=== PATIENT | female | born 1940 ===

== ENCOUNTER 2017-03-30 11:33 | Inpatient (IN) | payer MEDICARE, MEDICAID ==
[2017-03-30 12:02] VITALS: BMI 27.8
[2017-03-30] MEDS ORDERED: Sodium Chloride 0.9% 500 ML IV ONE ×3 (13:25→15:37)
--- NOTE | 2017-03-30 13:31 | C.PDOC ---
History Of Present Illness 76 year old female, with PMHx of HTN, DM, presents to ED for evaluation of diffuse abdominal pain associated with nausea and vomiting since last night ( midnight). She states the pain radiates to her lower back. Patient denies prior history of similar symptoms. She also denies fever, chest pain, SOB, dysuria/hematuria, diarrhea. Last BM was this morning. Time Seen by Provider: 03/30/17 12:56 Chief Complaint (Nursing): Abdominal Pain History Per: Patient History/Exam Limitations: no limitations Onset/Duration Of Symptoms: Days (1) Current Symptoms Are (Timing): Still Present Severity: Moderate Location Of Pain/Discomfort: Diffuse Radiation Of Pain To:: Back Quality Of Discomfort: "Pain" Associated Symptoms: Nausea, Vomiting, Back Pain. denies: Diarrhea, Loss Of Appetite, Chest Pain, Constipation, Urinary Symptoms Exacerbating Factors: None Alleviating Factors: None Additional History Per: Patient Abnormal Vaginal Bleeding: No Past Medical History Reviewed: Historical Data, Nursing Documentation, Vital Signs Vital Signs: Last Vital Signs Temp 98.3 F 04/08/17 09:23 Pulse 72 04/08/17 09:58 Resp 20 04/08/17 09:23 BP 190/79 H 04/08/17 09:58 Pulse Ox 96 04/08/17 09:23 - Medical History PMH: Arthritis, Diabetes, HTN, Hypercholesterolemia, Migraine, Osteoporosis Surgical History: Appendectomy, Cholecystectomy, Coronary Stent (X4) - [facility] Procedures CORONAR ARTERIOGR-2 CATH (03/07/13) LEFT HEART CARDIAC CATH (03/07/13) LT HEART ANGIOCARDIOGRAM (03/07/13) Family History: States: No Known Family Hx - Social History Hx Tobacco Use: No Hx Alcohol Use: No Hx Substance Use: No - Immunization History Hx Tetanus Toxoid Vaccination: No Hx Influenza Vaccination: Yes (2017) Hx Pneumococcal Vaccination: No Review Of Systems Except As Marked, All Systems Reviewed And Found Negative. Constitutional: Negative for: Fever, Chills Cardiovascular: Negative for: Chest Pain, Palpitations Respiratory: Negative for: Cough, Shortness of Breath Gastrointestinal: Positive for: Nausea, Vomiting, Abdominal Pain. Negative for : Diarrhea, Constipation, Hematemesis Genitourinary: Negative for: Dysuria, Frequency, Hematuria Musculoskeletal: Positive for: Back Pain Physical Exam - Physical Exam Appears: Well, Non-toxic, In Acute Distress (in mild pain, uncomfortable appearing ) Skin: Normal Color, Warm, Dry, No Rash Eye(s): bilateral: Normal Inspection Oral Mucosa: Moist Cardiovascular: Rhythm Regular Respiratory: Normal Breath Sounds, No Rales, No Rhonchi, No Wheezing Gastrointestinal/Abdominal: Bowel Sounds (hyperactive), Soft, Tenderness ( diffuse tenderness to palpation, greatest at right periumbilical area ), No Distention, No Guarding, No Rebound, Other ((-) Gutierrez's, (-) McBurney's) Back: Normal Inspection, No CVA Tenderness Extremity: Normal ROM Neurological/Psych: Oriented x3 ED Course And Treatment - Laboratory Results Result Diagrams: 04/08/17 08:43 04/08/17 08:43 O2 Sat by Pulse Oximetry: 99 (RA) Pulse Ox Interpretation: Normal - CT Scan/US ct abd/pelvis Other Rad Studies (CT/US): Read By Radiologist, Radiology Report Reviewed CT/US Interpretation: Accession No. : [id number]. Patient Name / ID : RUTH ANN GARDNER / [id number]. Exam Date : 03/30/2017 17:59:27 ( Approved ) . Study Comment : Sex / Age : F / [id number]. Creator : Tyrel Veronica MD. Dictator : Tyrel Veronica MD. Professor Of Theatre : Wood Floor Refinisher : Tyrel Veronica MD. Approver2 : Report Date : 03/30/2017 18:55:30. My Comment : . PROCEDURE: CT Abdomen and Pelvis with contrast. HISTORY: DIFFUSE ABD PAIN, VOMITING, R/O SBO. COMPARISON: 03/03/2014. TECHNIQUE: Contrast dose: Oral contrast only. Radiation dose: Total exam DLP = mGy-cm. This CT exam was performed using one or more of the following dose reduction techniques: Automated exposure control, adjustment of the mA and/or kV according to patient size, and/or use of iterative reconstruction technique. FINDINGS: LOWER THORAX : Stable, small pericardial effusion, cardiomegaly. LIVER: Unremarkable. No gross lesion or ductal dilatation. GALLBLADDER AND BILE DUCTS: Status post cholecystectomy. No abnormality is seen in the gallbladder fossa. Portions of the. PANCREAS: Unremarkable. No gross lesion or ductal dilatation. SPLEEN: Unremarkable. ADRENALS: Unremarkable. No mass. KIDNEYS AND URETERS: Unremarkable. No hydronephrosis. No solid mass. VASCULATURE: Unremarkable. No aortic aneurysm. BOWEL: Thickening of the wall of the ascending colon likely reflective of mild colitis. The findings do not affect the transverse colon, descending colon, rectum or sigmoid. Incidental finding(s): Duodenal diverticulum. APPENDIX: A normal appendix is not visualized. PERITONEUM: Unremarkable. No free fluid. No free air. LYMPH NODES: Unremarkable. No enlarged lymph nodes. BLADDER: Unremarkable. REPRODUCTIVE: Unremarkable. BONES: No acute fracture. OTHER FINDINGS: None. IMPRESSION: Mild colitis limited to the ascending colon. Additional benign and/or incidental findings described above. Progress Note: Blood work, UA, obstructive series, Abd & Pelvis CT ordered and reviewed. Pt given IV NS bolus, IV zofran, IV toradol (low dose). 7:00pm- CT scan shows mild colitis. However patient has left shift and significant bandemia - will admit patient. - Physician Consult Information Physician Contacted: Augustin Love Outcome Of Conversation: Discussed patient with hospitalist, agrees with admission to his service. GI consult entered. Disposition - Disposition Disposition: HOSPITALIZED Disposition Time: 19:08 Condition: FAIR - Clinical Impression Clinical Impression: Elevated liver enzymes, Bandemia, Colitis - Scribe Statement The provider has reviewed the documentation as recorded by the Baron Rueda All medical record entries made by the Baron were at my direction and personally dictated by me. I have reviewed the chart and agree that the record accurately reflects my personal performance of the history, physical exam, medical decision making, and the department course for this patient. I have also personally directed, reviewed, and agree with the discharge instructions and disposition. Decision To Admit - Pt Status Changed To: Hospital Disposition Of: Inpatient - Admit Certification Admit to Inpatient:: After my assessment, the patient will require hospitalization for at least two midnights. This is because of the severity of symptoms shown, intensity of services needed, and/or the medical risk in this patient being treated as an outpatient. - InPatient: Physician Admission Certification:: see notes - . Bed Request Type: Regular Admitting Physician: Augustin Love Patient Diagnosis: Elevated liver enzymes, Bandemia, Colitis
[2017-03-30 13:47] LABS: BASO % 0.1 % (0.0-2.0); EOS % 0.1 % (0.0-4.0); HEMOGLOBIN 10.3 g/dL (11.0-16.0); LYMPH # 0.4 K/uL (1.0-4.3); LYMPH % 5.6 % (20.0-40.0); MEAN CELL VOLUME 92.1 fL (81.0-99.0); MEAN CORPUSCULAR HEMOGLOBIN 31.4 pg (27.0-31.0); MEAN PLATELET VOLUME 10.4 fL (7.2-11.7); MONO # 0.4 K/uL (0.0-0.8); MONO % 5.4 % (0.0-10.0); NEUT # 5.8 K/uL (1.8-7.0); NEUT % 88.8 % (50.0-75.0); PLATELET COUNT 130 K/uL (130-400); RBC 3.28 Mil/uL (3.80-5.20); RED CELL DISTRIBUTION WIDTH 14.5 % (11.5-14.5); WHITE BLOOD COUNT 6.5 K/uL (4.8-10.8)
[2017-03-30 14:03] LABS: ALB/GLOB RATIO 0.8 (1.0-2.1); ALBUMIN 3.7 g/dL (3.5-5.0); CALCIUM 8.9 mg/dl (8.6-10.4)
--- NOTE | 2017-03-30 14:09 | RAD ---
PROCEDURE: Radiographs of the chest and abdomen (obstructive series) HISTORY: VOMITING, R/O AIR FLUIDS LEVELS COMPARISON: Chest x-ray performed 01/08/17 TECHNIQUE: AP radiograph of the chest, with upright and supine radiographs of the abdomen. FINDINGS: Examination limited by habitus. CHEST: Cardiomegaly. Atherosclerotic calcifications of the aorta. Mild bibasilar atelectasis. No significant pleural effusion. No definite pneumothorax. ABDOMEN AND PELVIS: Nonspecific bowel gas pattern. Cholecystectomy clips. Degenerative changes of the spine and shoulders. Osseous demineralization. IMPRESSION: Cardiomegaly. Mild bibasilar atelectasis. Cholecystectomy clips. Nonspecific bowel gas pattern.
[2017-03-30 14:53] LABS: BANDS 14 % (0-2); LYMPHOCYTE 3 % (20-40); MONOCYTE 4 % (0-10); NEUTROPHIL 79 % (50-75); TOTAL CELLS COUNTED 100
[2017-03-30 14:54] LABS: PLATELET ESTIMATE NORMAL (NORMAL)
[2017-03-30 14:59] LABS: SQUAMOUS EPITHIAL 2 /hpf (0-5); URINE BACTERIA RARE (<OCC); URINE BILIRUBIN NEGATIVE (NEGATIVE); URINE BLOOD NEGATIVE (NEGATIVE); URINE CLARITY Clear (Clear); URINE COLOR Yellow (YELLOW); URINE GLUCOSE (UA) 2+ mg/dL (Normal); URINE LEUKOCYTE ESTERASE NEG Leu/uL (Negative); URINE NITRATE NEGATIVE (NEGATIVE); URINE PROTEIN 3+ mg/dL (NEGATIVE); URINE UROBILINOGEN NORMAL mg/dL (0.2-1.0)
[2017-03-30 15:36] LABS: VENOUS BLOOD GAS BASE EXCESS -11.5 mmol/L (0.0-2.0); VENOUS BLOOD GAS PCO2 26 mmHg (40-60); VENOUS BLOOD GAS PO2 54 mm/Hg (30-55); VENOUS BLOOD PH 7.31 (7.32-7.43)
[2017-03-30] MEDS ORDERED: Iohexol 240 (50 ml) ONE (16:45)
--- NOTE | 2017-03-30 18:57 | CT ---
PROCEDURE: CT Abdomen and Pelvis with contrast HISTORY: DIFFUSE ABD PAIN, VOMITING, R/O SBO COMPARISON: 03/03/2014 TECHNIQUE: Contrast dose: Oral contrast only. Radiation dose: Total exam DLP = mGy-cm. This CT exam was performed using one or more of the following dose reduction techniques: Automated exposure control, adjustment of the mA and/or kV according to patient size, and/or use of iterative reconstruction technique. FINDINGS: LOWER THORAX: Stable, small pericardial effusion, cardiomegaly. LIVER: Unremarkable. No gross lesion or ductal dilatation. GALLBLADDER AND BILE DUCTS: Status post cholecystectomy. No abnormality is seen in the gallbladder fossa. Portions of the PANCREAS: Unremarkable. No gross lesion or ductal dilatation. SPLEEN: Unremarkable. ADRENALS: Unremarkable. No mass. KIDNEYS AND URETERS: Unremarkable. No hydronephrosis. No solid mass. VASCULATURE: Unremarkable. No aortic aneurysm. BOWEL: Thickening of the wall of the ascending colon likely reflective of mild colitis. The findings do not affect the transverse colon, descending colon, rectum or sigmoid. Incidental finding(s): Duodenal diverticulum. APPENDIX: A normal appendix is not visualized. PERITONEUM: Unremarkable. No free fluid. No free air. LYMPH NODES: Unremarkable. No enlarged lymph nodes. BLADDER: Unremarkable. REPRODUCTIVE: Unremarkable. BONES: No acute fracture. OTHER FINDINGS: None. IMPRESSION: Mild colitis limited to the ascending colon. Additional benign and/or incidental findings described above.
[2017-03-30] MEDS ORDERED: Piperacillin/Tazobact 3.375 gm 100 ML IV STA (18:58)
--- NOTE | 2017-03-30 19:23 | CP.PCM.HP ---
<Melonie Echeverria - Last Filed: 03/30/17 23:06> History of Present Illness - History of Present Illness History of Present Illness: Medicine Note for Hospitalist Service CC: abdominal pain x 1 day HPI: 76 Female with PMHx HTN, DM, CKD, RA, OA presents to the ED with abdominal pain x 1 day. She reports she started to have abdominal pain last night after drinking a cup of a milk. Admitted to nausea, dry heaving, crampy abdominal pain; denied fever, chills, diarrhea (normal bowel movements every 2- 3 days). She reported not eating anything unusual, no sick contacts or recent travel. She saw her PMD last week for routine check up all was unremarkable at that time. Denied fever, chills, headache, chest pain, SOB, n/v/d/c, or urinary symptoms. PMHx: HTN, DM, CKD, RA, OA PSHx: Cholecystectomy, Appendectomy Meds: Will need to call pharmacy - patient does not know home medications- [facility] [phone] All: Fish- rash SHx: Denied tobacco, alcohol, illicit drug use FHx: Unremarkable PMD: Dr. Mickey Suh Present on Admission - Present on Admission Any Indicators Present on Admission: No Past Patient History - Infectious Disease Hx of Infectious Diseases: None - Past Medical History & Family History Past Medical History?: Yes - Past Social History Smoking Status: Never Smoked - CARDIAC Hx Hypercholesterolemia: Yes Hx Hypertension: Yes - PULMONARY Hx Respiratory Disorders: No - NEUROLOGICAL Hx Migraine: Yes - HEENT Hx HEENT Problems: No - RENAL Hx Chronic Kidney Disease: No - ENDOCRINE/METABOLIC Hx Endocrine Disorders: Yes Hx Diabetes Mellitus Type 2: Yes - HEMATOLOGICAL/ONCOLOGICAL Hx Blood Transfusions: No Hx Blood Transfusion Reaction: No - MUSCULOSKELETAL/RHEUMATOLOGICAL Hx Arthritis: Yes Hx Osteoporosis: Yes - PSYCHIATRIC Hx Substance Use: No - SURGICAL HISTORY Hx Appendectomy: Yes Hx Cholecystectomy: Yes Hx Coronary Stent: Yes (X4) - ANESTHESIA Hx Anesthesia: Yes Hx Anesthesia Reactions: Yes Hx Malignant Hyperthermia: No Meds Allergies/Adverse Reactions: Allergies Allergy/AdvReac Type Severity Reaction Status Date / Time ciprofloxacin [From Cipro] Allergy ANAPHYLAXIS Verified 03/30/17 12:01 ciprofloxacin HCl Allergy ANAPHYLAXIS Verified 03/30/17 12:01 [From Cipro] seafood Allergy ANAPHYLAXIS Uncoded 03/30/17 12:01 Physical Exam - Constitutional Appears: No Acute Distress - Head Exam Head Exam: NORMAL INSPECTION, NORMOCEPHALIC - Eye Exam Eye Exam: EOMI, Normal appearance, PERRL Pupil Exam: NORMAL ACCOMODATION - ENT Exam ENT Exam: Mucous Membranes Moist, Normal Exam - Respiratory Exam Respiratory Exam: Clear to Auscultation Bilateral, NORMAL BREATHING PATTERN. absent: Wheezes - Cardiovascular Exam Cardiovascular Exam: REGULAR RHYTHM - GI/Abdominal Exam GI & Abdominal Exam: Normal Bowel Sounds, Soft, Tenderness (RLQ, LLQ ). absent : Distended - Extremities Exam Extremities exam: Positive for: normal inspection, pedal pulses present. Negative for: pedal edema, tenderness - Neurological Exam Neurological exam: Alert, CN II-XII Intact, Oriented x3 - Psychiatric Exam Psychiatric exam: Normal Affect, Normal Mood - Skin Skin Exam: Dry, Intact, Normal Color, Warm Results - Vital Signs Recent Vital Signs: Last Vital Signs Temp 100.3 F H 03/30/17 18:45 Pulse 62 03/30/17 18:45 Resp 18 03/30/17 18:45 BP 163/67 H 03/30/17 18:45 Pulse Ox 99 03/30/17 19:12 - Labs Result Diagrams: 03/30/17 19:59 03/30/17 13:39 Labs: Laboratory Results - last 24 hr 03/30/17 03/30/17 03/30/17 13:39 13:39 14:49 WBC 6.5 RBC 3.28 L Hgb 10.3 L Hct 30.2 L MCV 92.1 MCH 31.4 H MCHC 34.0 RDW 14.5 Plt Count 130 MPV 10.4 Neut % (Auto) 88.8 H Lymph % (Auto) 5.6 L [place] % (Auto) 5.4 Eos % (Auto) 0.1 Baso % (Auto) 0.1 Neut # (Auto) 5.8 Lymph # (Auto) 0.4 L [place] # (Auto) 0.4 Eos # (Auto) 0.0 Baso # (Auto) 0.0 Neutrophils % (Manual) 79 H Band Neutrophils % 14 H* Lymphocytes % (Manual) 3 L Monocytes % (Manual) 4 Platelet Estimate Normal RBC Morphology Normal pO2 VBG pH VBG pCO2 VBG HCO3 VBG Total CO2 VBG O2 Sat (Calc) VBG Base Excess VBG Potassium Glucose Lactate Sodium 137 Potassium 3.8 Chloride 108 H Carbon Dioxide 14 L Anion Gap 19 BUN 26 H Creatinine 2.2 H Est GFR ( Amer) 26 Est GFR (Non-Af Amer) 22 Random Glucose 191 H Calcium 8.9 Total Bilirubin 2.6 H AST 307 H D ALT 290 H D Alkaline Phosphatase 866 H D Total Protein 8.4 H Albumin 3.7 Globulin 4.6 H Albumin/Globulin Ratio 0.8 L Lipase 105 Venous Blood Potassium Urine Color Yellow Urine Clarity Clear Urine pH 7.0 Ur Specific [place] 1.012 Urine Protein 3+ H Urine Glucose (UA) 2+ H Urine Ketones Negative Urine Blood Negative Urine Nitrate Negative Urine Bilirubin Negative Urine Urobilinogen Normal Ur Leukocyte Esterase Neg Urine WBC (Auto) 1 Urine RBC (Auto) 4 H Ur Squamous Epith Cells 2 Urine Bacteria Rare 03/30/17 15:30 WBC RBC Hgb Hct MCV MCH MCHC RDW Plt Count MPV Neut % (Auto) Lymph % (Auto) [place] % (Auto) Eos % (Auto) Baso % (Auto) Neut # (Auto) Lymph # (Auto) [place] # (Auto) Eos # (Auto) Baso # (Auto) Neutrophils % (Manual) Band Neutrophils % Lymphocytes % (Manual) Monocytes % (Manual) Platelet Estimate RBC Morphology pO2 54 VBG pH 7.31 L VBG pCO2 26 L VBG HCO3 15.6 VBG Total CO2 13.9 L VBG O2 Sat (Calc) 91.2 H VBG Base Excess -11.5 L VBG Potassium 3.3 L Glucose 120 H Lactate 1.7 Sodium 138.0 Potassium Chloride 111.0 H Carbon Dioxide Anion Gap BUN Creatinine Est GFR ( Amer) Est GFR (Non-Af Amer) Random Glucose Calcium Total Bilirubin AST ALT Alkaline Phosphatase Total Protein Albumin Globulin Albumin/Globulin Ratio Lipase Venous Blood Potassium 3.3 L Urine Color Urine Clarity Urine pH Ur Specific [place] Urine Protein Urine Glucose (UA) Urine Ketones Urine Blood Urine Nitrate Urine Bilirubin Urine Urobilinogen Ur Leukocyte Esterase Urine WBC (Auto) Urine RBC (Auto) Ur Squamous Epith Cells Urine Bacteria Assessment & Plan - Assessment and Plan (Free Text) Assessment: 76 Female with PMHx HTN, DM, CKD, RA, OA presents to the ED with abdominal pain x 1 day, found to have colitis on CT Scan. Plan: Colitis GI consulted -Dr. Naidu- help appreciated SIRS: Febrile, bandemia- high of 36 , lactate normal x 2 F/U Blood Cultures, stool studies Imaging: CT ab/pel: Mild colitis limited to the ascending colon. Abdominal Obstructive Xray: Cardiomegaly. Mild bibasilar atelectasis. Cholecystectomy clips. Nonspecific bowel gas pattern. Meds: NS @ 100cc/hr Zosyn Q6H, Vanco Q daily, f/u vanco trough prior to 4th dose Probiotics 2 hours prior to abx administration Toradol, Morphine, Zofran PRN Anemia Baseline hemoglobin 10 On admission 9 Anemia work up ordered CKD, Stage 4 Not on dialysis Baseline creatine 1-1.5 On admission 2.2 with GFR Will continue with IVF HTN Will need to call pharmacy to resume home medications T2DM Accuchecks A1C- 5.1 ISS- low Currently NPO Will need to call pharmacy to resume home medications Transaminitis Elevated Total Bilirubin GI consulted - Dr. Naidu- help appreciated AST/ALT: 307/290, Alk phos 866, T Bili: 2.6 Hepatitis panel - negative Normal findings on CT scan regarding liver Prophylactic Measures GI PPX: Protonix 40mg PO daily DVT PPX: SCDs, VTE c/i due to symptomatic anemia DW Dr. Love, Melonie Echeverria DO, PGY-1 <Augustin Love - Last Filed: 03/31/17 06:35> Results - Vital Signs Recent Vital Signs: Last Vital Signs Temp 98 F 03/31/17 00:00 Pulse 55 L 03/31/17 00:00 Resp 20 03/31/17 00:00 BP 166/79 H 03/31/17 00:00 Pulse Ox 97 03/31/17 00:00 - Labs Result Diagrams: 03/30/17 19:59 03/30/17 13:39 Labs: Laboratory Results - last 24 hr 03/30/17 03/30/17 03/30/17 13:39 13:39 14:49 WBC 6.5 RBC 3.28 L Hgb 10.3 L Hct 30.2 L MCV 92.1 MCH 31.4 H MCHC 34.0 RDW 14.5 Plt Count 130 MPV 10.4 Neut % (Auto) 88.8 H Lymph % (Auto) 5.6 L [place] % (Auto) 5.4 Eos % (Auto) 0.1 Baso % (Auto) 0.1 Neut # (Auto) 5.8 Lymph # (Auto) 0.4 L [place] # (Auto) 0.4 Eos # (Auto) 0.0 Baso # (Auto) 0.0 Neutrophils % (Manual) 79 H Band Neutrophils % 14 H* Lymphocytes % (Manual) 3 L Monocytes % (Manual) 4 Platelet Estimate Normal RBC Morphology Normal pO2 VBG pH VBG pCO2 VBG HCO3 VBG Total CO2 VBG O2 Sat (Calc) VBG Base Excess VBG Potassium Glucose Lactate Sodium 137 Potassium 3.8 Chloride 108 H Carbon Dioxide 14 L Anion Gap 19 BUN 26 H Creatinine 2.2 H Est GFR ( Amer) 26 Est GFR (Non-Af Amer) 22 POC Glucose (mg/dL) Random Glucose 191 H Hemoglobin A1c Calcium 8.9 Total Bilirubin 2.6 H AST 307 H D ALT 290 H D Alkaline Phosphatase 866 H D Total Protein 8.4 H Albumin 3.7 Globulin 4.6 H Albumin/Globulin Ratio 0.8 L Lipase 105 Venous Blood Potassium Urine Color Yellow Urine Clarity Clear Urine pH 7.0 Ur Specific [place] 1.012 Urine Protein 3+ H Urine Glucose (UA) 2+ H Urine Ketones Negative Urine Blood Negative Urine Nitrate Negative Urine Bilirubin Negative Urine Urobilinogen Normal Ur Leukocyte Esterase Neg Urine WBC (Auto) 1 Urine RBC (Auto) 4 H Ur Squamous Epith Cells 2 Urine Bacteria Rare Stool Leukocytes, Qual Hepatitis A IgM Ab Hep Bs Antigen Hep B Core IgM Ab Hepatitis C Antibody 03/30/17 03/30/17 03/30/17 15:30 19:41 19:50 WBC RBC Hgb Hct MCV MCH MCHC RDW Plt Count MPV Neut % (Auto) Lymph % (Auto) [place] % (Auto) Eos % (Auto) Baso % (Auto) Neut # (Auto) Lymph # (Auto) [place] # (Auto) Eos # (Auto) Baso # (Auto) Neutrophils % (Manual) Band Neutrophils % Lymphocytes % (Manual) Monocytes % (Manual) Platelet Estimate RBC Morphology pO2 54 63 H VBG pH 7.31 L 7.34 VBG pCO2 26 L 26 L VBG HCO3 15.6 16.9 VBG Total CO2 13.9 L 14.8 L VBG O2 Sat (Calc) 91.2 H 97.8 H VBG Base Excess -11.5 L -10.1 L VBG Potassium 3.3 L 4.4 Glucose 120 H 137 H Lactate 1.7 0.9 Sodium 138.0 139.0 Potassium Chloride 111.0 H 117.0 H Carbon Dioxide Anion Gap BUN Creatinine Est GFR ( Amer) Est GFR (Non-Af Amer) POC Glucose (mg/dL) Random Glucose Hemoglobin A1c Calcium Total Bilirubin AST ALT Alkaline Phosphatase Total Protein Albumin Globulin Albumin/Globulin Ratio Lipase Venous Blood Potassium 3.3 L 4.4 Urine Color Urine Clarity Urine pH Ur Specific [place] Urine Protein Urine Glucose (UA) Urine Ketones Urine Blood Urine Nitrate Urine Bilirubin Urine Urobilinogen Ur Leukocyte Esterase Urine WBC (Auto) Urine RBC (Auto) Ur Squamous Epith Cells Urine Bacteria Stool Leukocytes, Qual Negative Hepatitis A IgM Ab Hep Bs Antigen Hep B Core IgM Ab Hepatitis C Antibody 03/30/17 03/30/17 03/30/17 19:59 19:59 20:48 WBC 7.4 RBC 2.90 L Hgb 9.0 L Hct 26.6 L MCV 91.5 MCH 31.1 H MCHC 33.9 RDW 14.3 Plt Count 116 L MPV 9.9 Neut % (Auto) 87.6 H Lymph % (Auto) 5.1 L [place] % (Auto) 7.0 Eos % (Auto) 0.0 Baso % (Auto) 0.3 Neut # (Auto) 6.5 Lymph # (Auto) 0.4 L [place] # (Auto) 0.5 Eos # (Auto) 0.0 Baso # (Auto) 0.0 Neutrophils % (Manual) 56 Band Neutrophils % 36 H* Lymphocytes % (Manual) 4 L Monocytes % (Manual) 4 Platelet Estimate Slightly decreased L RBC Morphology Normal pO2 VBG pH VBG pCO2 VBG HCO3 VBG Total CO2 VBG O2 Sat (Calc) VBG Base Excess VBG Potassium Glucose Lactate Sodium Potassium Chloride Carbon Dioxide Anion Gap BUN Creatinine Est GFR ( Amer) Est GFR (Non-Af Amer) POC Glucose (mg/dL) Random Glucose Hemoglobin A1c 5.1 Calcium Total Bilirubin AST ALT Alkaline Phosphatase Total Protein Albumin Globulin Albumin/Globulin Ratio Lipase Venous Blood Potassium Urine Color Urine Clarity Urine pH Ur Specific [place] Urine Protein Urine Glucose (UA) Urine Ketones Urine Blood Urine Nitrate Urine Bilirubin Urine Urobilinogen Ur Leukocyte Esterase Urine WBC (Auto) Urine RBC (Auto) Ur Squamous Epith Cells Urine Bacteria Stool Leukocytes, Qual Hepatitis A IgM Ab Negative Hep Bs Antigen Negative Hep B Core IgM Ab Negative Hepatitis C Antibody Negative 03/30/17 22:34 WBC RBC Hgb Hct MCV MCH MCHC RDW Plt Count MPV Neut % (Auto) Lymph % (Auto) [place] % (Auto) Eos % (Auto) Baso % (Auto) Neut # (Auto) Lymph # (Auto) [place] # (Auto) Eos # (Auto) Baso # (Auto) Neutrophils % (Manual) Band Neutrophils % Lymphocytes % (Manual) Monocytes % (Manual) Platelet Estimate RBC Morphology pO2 VBG pH VBG pCO2 VBG HCO3 VBG Total CO2 VBG O2 Sat (Calc) VBG Base Excess VBG Potassium Glucose Lactate Sodium Potassium Chloride Carbon Dioxide Anion Gap BUN Creatinine Est GFR ( Amer) Est GFR (Non-Af Amer) POC Glucose (mg/dL) 143 H Random Glucose Hemoglobin A1c Calcium Total Bilirubin AST ALT Alkaline Phosphatase Total Protein Albumin Globulin Albumin/Globulin Ratio Lipase Venous Blood Potassium Urine Color Urine Clarity Urine pH Ur Specific [place] Urine Protein Urine Glucose (UA) Urine Ketones Urine Blood Urine Nitrate Urine Bilirubin Urine Urobilinogen Ur Leukocyte Esterase Urine WBC (Auto) Urine RBC (Auto) Ur Squamous Epith Cells Urine Bacteria Stool Leukocytes, Qual Hepatitis A IgM Ab Hep Bs Antigen Hep B Core IgM Ab Hepatitis C Antibody Assessment & Plan - Date & Time Date: 03/31/17 (I have seen and examined the patient. I agree with the findings and plan of care as documented by Dr. Echeverria. Patient with colitis and transaminitis. Zosyn and symptomatic treatment. Consult to GI. Chronic kidney disease. IVF and recheck renal function. If no improvement, consider nephro consult. Also with anemia. Iron studies. Stool studies. Monitor for acute changes.) Time: 06:34 Attending/Attestation - Attestation I have personally seen and examined this patient.: Yes I have fully participated in the care of the patient.: Yes I have reviewed all pertinent clinical information: Yes
[2017-03-30] MEDS ORDERED: Morphine 4 MG/ML VIAL IVP PRN (19:52)
[2017-03-30 19:56] LABS: VENOUS BLOOD GAS BASE EXCESS -10.1 mmol/L (0.0-2.0); VENOUS BLOOD GAS PCO2 26 mmHg (40-60); VENOUS BLOOD GAS PO2 63 mm/Hg (30-55); VENOUS BLOOD PH 7.34 (7.32-7.43)
[2017-03-30] MEDS ORDERED: Sodium Chloride 0.9% 1,000 ML IV SCH (20:00)
[2017-03-30 20:03] LABS: BASO % 0.3 % (0.0-2.0); LYMPH # 0.4 K/uL (1.0-4.3); LYMPH % 5.1 % (20.0-40.0); MEAN CELL VOLUME 91.5 fL (81.0-99.0); MEAN CORPUSCULAR HEMOGLOBIN 31.1 pg (27.0-31.0); MEAN CORPUSCULAR HGB CONC 33.9 g/dL (33.0-37.0); MEAN PLATELET VOLUME 9.9 fL (7.2-11.7); MONO # 0.5 K/uL (0.0-0.8); NEUT # 6.5 K/uL (1.8-7.0); NEUT % 87.6 % (50.0-75.0); RED CELL DISTRIBUTION WIDTH 14.3 % (11.5-14.5); WHITE BLOOD COUNT 7.4 K/uL (4.8-10.8)
[2017-03-30 20:11] LABS: PLATELET COUNT 116 K/uL (130-400)
[2017-03-30 21:12] LABS: BANDS 36 % (0-2); LYMPHOCYTE 4 % (20-40); MONOCYTE 4 % (0-10); NEUTROPHIL 56 % (50-75); TOTAL CELLS COUNTED 100
[2017-03-30 21:13] LABS: PLATELET ESTIMATE SLIGHTLY DECREASED (NORMAL)
[2017-03-30 22:29] LABS: HEPATITIS B SURFACE AG Negative (NEGATIVE)
[2017-03-30 22:34] LABS: HEPATITIS B CORE AB NEGATIVE (NEGATIVE)
[2017-03-30 22:35] LABS: HEPATITIS C ANTIBODY NEGATIVE (NEGATIVE)
[2017-03-30] MEDS: Vancomycin 1 gm/NS 200 ml 1 GM/200 ML BAG IVPB SCH (23:13)
[2017-03-30 23:37] LABS: HEPATITIS A IGM NEGATIVE (NEGATIVE)
[2017-03-31] MEDS ORDERED: Piperacill/Tazo 3.375gm in Dex 3.375 GM/50 ML BAG IVPB SCH (04:00)
[2017-03-31 07:25] LABS: BASO % 0.2 % (0.0-2.0); EOS # 0.1 K/uL (0.0-0.7); EOS % 1.4 % (0.0-4.0); HEMOGLOBIN 9.3 g/dL (11.0-16.0); LYMPH # 0.8 K/uL (1.0-4.3); LYMPH % 10.5 % (20.0-40.0); MEAN CELL VOLUME 91.7 fL (81.0-99.0); MEAN CORPUSCULAR HEMOGLOBIN 31.8 pg (27.0-31.0); MEAN CORPUSCULAR HGB CONC 34.7 g/dL (33.0-37.0); MONO # 0.4 K/uL (0.0-0.8); MONO % 4.9 % (0.0-10.0); NEUT # 6.1 K/uL (1.8-7.0); RBC 2.92 Mil/uL (3.80-5.20); RED CELL DISTRIBUTION WIDTH 14.7 % (11.5-14.5); WHITE BLOOD COUNT 7.4 K/uL (4.8-10.8)
[2017-03-31] MEDS: (Novolin R) Insulin Human Regular 100 units/ml vial SC SCH ×4 (07:30→21:51)
[2017-03-31 07:45] LABS: ALB/GLOB RATIO 0.8 (1.0-2.1); ALBUMIN 3.1 g/dL (3.5-5.0); CALCIUM 8.5 mg/dl (8.6-10.4); MAGNESIUM 2.1 mg/dL (1.6-2.3)
[2017-03-31 07:56] LABS: IRON 23 ug/dL (37-170)
[2017-03-31] MEDS: Lactobacillus Acidophilus 500 MU Cap PO SCH ×3 (08:00→17:49)
[2017-03-31] MEDS: Piperacill/Tazo 2.25gm in Dex 2.25 GM/50 ML BAG IVPB SCH ×3 (08:00→20:00)
[2017-03-31 08:06] LABS: % IRON SATURATION 9 (20-55); TOTAL IRON BINDING CAPACITY 259 ug/dL (250-450)
[2017-03-31] MEDS: Dextrose 5%/0.9% NS 1,000 ML IV SCH ×2 (09:12→18:00)
--- NOTE | 2017-03-31 14:09 | CP.PCM.PN ---
Addendum entered and electronically signed by Mickie Katz DO 03/31/17 14: 29: Lipid panel noted: Tri, Chol: 186, LDL: 97, HDL: 37 Original Note: <Mickie Katz - Last Filed: 03/31/17 14:09> Subjective - Date & Time of Evaluation Date of Evaluation: 03/31/17 Time of Evaluation: 13:56 - Subjective Subjective: Patient seen and examined at bedside. No acute events overnight. Patient resting comfortably in bed with no new complaints at this time. Patient continues to have abdominal pain although it has improved slightly. Patient denies chest pain, SOB, N&V, calf pain, leg swelling. I called patients pharmacy and confirmed the patient's home medication list: Januvia 50 mg QD Metformin 500 mg QD Plavix 75 mg QD Glipizide 5 mg QD Bystolic 2.5 mg QD Nuedexta 20/10 BID Topamax 50 mg BID Nifedipine XL 90 mg QD Meclizine 12.5 mg BID Objective - Vital Signs/Intake and Output Vital Signs (last 24 hours): Temp Pulse Resp BP Pulse Ox 99.1 F 66 20 198/72 H 97 03/31/17 07:40 03/31/17 07:40 03/31/17 07:40 03/31/17 07:40 03/31/17 07:40 Intake and Output: 03/31/17 03/31/17 06:59 18:59 Intake Total 850 Balance 850 - Medications Medications: Current Medications Acetaminophen (Tylenol 325mg Tab) 650 mg PO Q6 PRN PRN Reason: Fever >100.4 F Heparin Sodium (Porcine) (Heparin) 5,000 units SC Q12 [facility] Last Admin: 03/31/17 09:16 Dose: 5,000 units Vancomycin/Sodium Chloride (Vancomycin 1 Gm/Ns 200 Ml) 1 gm in 200 mls @ 133 mls/hr IVPB Q24H [facility] Stop: 04/04/17 23:31 Last Admin: 03/30/17 23:13 Dose: 133 mls/hr Piperacillin Sod/Tazobactam Sod (Zosyn 2.25 Gm Iv Premix) 2.25 gm in 50 mls @ 100 mls/hr IVPB Q6H [facility] Last Admin: 03/31/17 13:39 Dose: 100 mls/hr Dextrose/Sodium Chloride (Dextrose 5%/0.9% Ns 1000 Ml) 1,000 mls @ 100 mls/hr IV .Q10H [facility] Last Admin: 03/31/17 09:12 Dose: 100 mls/hr Insulin Human Regular (Novolin R) 0 unit SC ACHS [facility] PRN Reason: Protocol Last Admin: 03/31/17 11:27 Dose: Not Given Ketorolac Tromethamine (Toradol) 15 mg IVP Q6 PRN PRN Reason: Pain, moderate (4-7) Last Admin: 03/30/17 23:08 Dose: 15 mg Lactobacillus Acidophilus (Bacid Acidophilus) 1 cap PO BID [facility] Last Admin: 03/31/17 10:00 Dose: 1 cap Morphine Sulfate (Morphine) 1 mg IVP Q4H PRN PRN Reason: Pain, severe (8-10) Ondansetron HCl (Zofran Inj) 4 mg IVP Q6H PRN PRN Reason: Nausea/Vomiting Pantoprazole Sodium (Protonix Inj) 40 mg IVP DAILY [facility] Last Admin: 03/31/17 09:11 Dose: 40 mg - Labs Labs: 03/31/17 07:09 03/31/17 07:09 - Constitutional Appears: Non-toxic, No Acute Distress - Head Exam Head Exam: ATRAUMATIC, NORMAL INSPECTION, NORMOCEPHALIC - Eye Exam Eye Exam: EOMI, Normal appearance, PERRL - ENT Exam ENT Exam: Mucous Membranes Moist - Respiratory Exam Respiratory Exam: Rales (Righ base ), NORMAL BREATHING PATTERN. absent: Accessory Muscle Use, Rhonchi, Wheezes, Respiratory Distress - Cardiovascular Exam Cardiovascular Exam: RRR, +S1, +S2 - GI/Abdominal Exam GI & Abdominal Exam: Soft, Tenderness (generalized ), Normal Bowel Sounds. absent: Distended - Extremities Exam Extremities Exam: Normal Inspection. absent: Calf Tenderness, Pedal Edema - Neurological Exam Neurological Exam: Alert, Awake, Oriented x3 - Psychiatric Exam Psychiatric exam: Normal Affect, Normal Mood - Skin Skin Exam: Dry, Intact, Normal Color, Warm Assessment and Plan - Assessment and Plan (Free Text) Plan: Colitis GI consulted -Dr. Naidu- help appreciated SIRS: Febrile, bandemia- high of 36 , lactate normal x 2 F/U Blood Cultures Stool culture: pending Negative stool leukocytes Imaging: CT ab/pel: Mild colitis limited to the ascending colon. Abdominal Obstructive Xray: Cardiomegaly. Mild bibasilar atelectasis. Cholecystectomy clips. Nonspecific bowel gas pattern. Meds: NS @ 100cc/hr Zosyn Q6H, Vanco Q daily, f/u vanco trough Probiotics 2 hours prior to abx administration Toradol, Morphine, Zofran PRN Fever Tmax: 100.6 on 03/30/17 No leukocytosis Rales in RLL CXR pending read ID consulted, Dr. Owens, help appreciated Anemia Baseline hemoglobin 10 On admission 9 Retic count 1.5 Iron 23 TIBC 259 % Saturation 9 Ferritin 103 CKD, Stage 4 Not on dialysis Baseline creatine 1-1.5 On admission 2.2 with GFR Will continue with IVF HTN Bystolic and nifedipine XL continued (home meds) T2DM Accuchecks A1C- 5.1 ISS- low Currently NPO Transaminitis & Elevated Total Bilirubin GI consulted - Dr. Naidu- help appreciated AST/ALT: 307/290, Alk phos 866, T Bili: 2.6 Hepatitis panel - negative Normal findings on CT scan regarding liver MRCP pending Prophylactic Measures GI PPX: Protonix 40mg PO daily DVT PPX: SCDs, VTE c/i due to symptomatic anemia <Kvng Hart - Last Filed: 03/31/17 15:03> Objective - Vital Signs/Intake and Output Vital Signs (last 24 hours): Temp Pulse Resp BP Pulse Ox 99.1 F 66 20 198/72 H 97 03/31/17 07:40 03/31/17 07:40 03/31/17 07:40 03/31/17 07:40 03/31/17 07:40 Intake and Output: 03/31/17 03/31/17 06:59 18:59 Intake Total 850 Balance 850 - Medications Medications: Current Medications Acetaminophen (Tylenol 325mg Tab) 650 mg PO Q6 PRN PRN Reason: Fever >100.4 F Clopidogrel Bisulfate (Plavix) 75 mg PO DAILY [facility] Heparin Sodium (Porcine) (Heparin) 5,000 units SC Q12 [facility] Last Admin: 03/31/17 09:16 Dose: 5,000 units Home Med (Dextromethorphan Hbr/Quinidine [Nuedexta 20-10 Mg Capsule]) 1 tab PO BID [facility] Vancomycin/Sodium Chloride (Vancomycin 1 Gm/Ns 200 Ml) 1 gm in 200 mls @ 133 mls/hr IVPB Q24H [facility] Stop: 04/04/17 23:31 Last Admin: 03/30/17 23:13 Dose: 133 mls/hr Piperacillin Sod/Tazobactam Sod (Zosyn 2.25 Gm Iv Premix) 2.25 gm in 50 mls @ 100 mls/hr IVPB Q6H [facility] Last Admin: 03/31/17 13:39 Dose: 100 mls/hr Dextrose/Sodium Chloride (Dextrose 5%/0.9% Ns 1000 Ml) 1,000 mls @ 100 mls/hr IV .Q10H [facility] Last Admin: 03/31/17 09:12 Dose: 100 mls/hr Insulin Human Regular (Novolin R) 0 unit SC ACHS [facility] PRN Reason: Protocol Last Admin: 03/31/17 11:27 Dose: Not Given Ketorolac Tromethamine (Toradol) 15 mg IVP Q6 PRN PRN Reason: Pain, moderate (4-7) Last Admin: 03/30/17 23:08 Dose: 15 mg Lactobacillus Acidophilus (Bacid Acidophilus) 1 cap PO BID [facility] Last Admin: 03/31/17 10:00 Dose: 1 cap Morphine Sulfate (Morphine) 1 mg IVP Q4H PRN PRN Reason: Pain, severe (8-10) Nebivolol (Bystolic) 2.5 mg PO DAILY [facility] Nifedipine (Procardia Xl) 90 mg PO DAILY [facility] Ondansetron HCl (Zofran Inj) 4 mg IVP Q6H PRN PRN Reason: Nausea/Vomiting Pantoprazole Sodium (Protonix Inj) 40 mg IVP DAILY [facility] Last Admin: 03/31/17 09:11 Dose: 40 mg Topiramate (Topamax) 50 mg PO BID [facility] - Labs Labs: 03/31/17 07:09 03/31/17 07:09 Attending/Attestation - Attestation I have personally seen and examined this patient.: Yes I have fully participated in the care of the patient.: Yes I have reviewed all pertinent clinical information, including history, physical exam and plan: Yes Notes (Text): Patient was seen and examined alert oriented. c/o Thirsty. has abdominal pain,no nausea,no vomiting Patient was admitted for abdominal pain. 1.Colitis/abdominal pain/bandemia 2.cardiomegaly/small pericardial effusion/History of chf 3.Chronic renal failure at baseline creatinine 4.HTN 5.DM 7.Transaminitis on examination she is lying comfortable,alert and oriented, Abdomen is not distended. has tenderness more on her RUQ,no guarding no rigidity lungs left basal rhonchi plan.continue renal dose zosyn and vanco. follow vanco level and cultures follow ID consult. GI consulted. planning fo MRCP on clear liquids,continue hydration,follow echo resume home meds except diabetic meds. Finger stick with insulin coverage, monitor creatinine,monitor LFT d/w The resident I agree with the resident's assessment and the plan
[2017-03-31] MEDS: NIFEdipine 90 mg ER Tab PO SCH (14:25)
--- NOTE | 2017-03-31 14:37 | CP.PCM.CON ---
Addendum entered and electronically signed by Belinda Day DO 03/31/17 14:54: Cardiology c/s for possible EUS/ERCP. Original Note: <Belinda Day - Last Filed: 03/31/17 14:48> History of Present Illness - History of Present Illness History of Present Illness: GI Fellow PGY4 Consult Note This is a 76y Female with PMHx HTN, DM, CKD, RA, OA, CAD s/p stents on plavix presents to the ED with abdominal pain x 1 day. She reports she started to have abdominal pain last night after drinking a cup of a milk. Admitted to nausea, dry heaving, crampy abdominal pain; denied fever, chills, diarrhea. She reported not eating anything unusual, no sick contacts or recent travel. Pt had a cholecystectomy many years ago due to gallstones with no reported post surgical complications. Pt still having RUQ abdominal pain at this time. Pt denies any liver disease, no jaundice or hepatitis in the past. ROS: A 12pt ROS was negative except as above. PMHx: HTN, DM, CKD, RA, OA PSHx: Cholecystectomy, Appendectomy SHx: Denied tobacco, alcohol, illicit drug use FHx: Unremarkable Past Patient History - Infectious Disease Hx of Infectious Diseases: None - Past Medical History & Family History Past Medical History?: Yes - Past Social History Smoking Status: Never Smoked - CARDIAC Hx Hypercholesterolemia: Yes Hx Hypertension: Yes - PULMONARY Hx Respiratory Disorders: No - NEUROLOGICAL Hx Migraine: Yes - HEENT Hx HEENT Problems: No - RENAL Hx Chronic Kidney Disease: No - ENDOCRINE/METABOLIC Hx Endocrine Disorders: Yes Hx Diabetes Mellitus Type 2: Yes - HEMATOLOGICAL/ONCOLOGICAL Hx Blood Transfusions: No Hx Blood Transfusion Reaction: No - INTEGUMENTARY Hx Dermatological Problems: No - MUSCULOSKELETAL/RHEUMATOLOGICAL Hx Arthritis: Yes Hx Osteoporosis: Yes - GASTROINTESTINAL Hx Gastrointestinal Disorders: No - GENITOURINARY/GYNECOLOGICAL Hx Genitourinary Disorders: No - PSYCHIATRIC Hx Substance Use: No - SURGICAL HISTORY Hx Appendectomy: Yes Hx Cholecystectomy: Yes Hx Coronary Stent: Yes (X4) - ANESTHESIA Hx Anesthesia: Yes Hx Anesthesia Reactions: Yes Hx Malignant Hyperthermia: No Meds Allergies/Adverse Reactions: Allergies Allergy/AdvReac Type Severity Reaction Status Date / Time ciprofloxacin [From Cipro] Allergy ANAPHYLAXIS Verified 03/30/17 12:01 ciprofloxacin HCl Allergy ANAPHYLAXIS Verified 03/30/17 12:01 [From Cipro] seafood Allergy ANAPHYLAXIS Uncoded 03/30/17 12:01 - Medications Medications: Current Medications Acetaminophen (Tylenol 325mg Tab) 650 mg PO Q6 PRN PRN Reason: Fever >100.4 F Clopidogrel Bisulfate (Plavix) 75 mg PO DAILY [facility] Heparin Sodium (Porcine) (Heparin) 5,000 units SC Q12 [facility] Last Admin: 03/31/17 09:16 Dose: 5,000 units Home Med (Dextromethorphan Hbr/Quinidine [Nuedexta 20-10 Mg Capsule]) 1 tab PO BID [facility] Vancomycin/Sodium Chloride (Vancomycin 1 Gm/Ns 200 Ml) 1 gm in 200 mls @ 133 mls/hr IVPB Q24H [facility] Stop: 04/04/17 23:31 Last Admin: 03/30/17 23:13 Dose: 133 mls/hr Piperacillin Sod/Tazobactam Sod (Zosyn 2.25 Gm Iv Premix) 2.25 gm in 50 mls @ 100 mls/hr IVPB Q6H [facility] Last Admin: 03/31/17 13:39 Dose: 100 mls/hr Dextrose/Sodium Chloride (Dextrose 5%/0.9% Ns 1000 Ml) 1,000 mls @ 100 mls/hr IV .Q10H [facility] Last Admin: 03/31/17 09:12 Dose: 100 mls/hr Insulin Human Regular (Novolin R) 0 unit SC ACHS [facility] PRN Reason: Protocol Last Admin: 03/31/17 11:27 Dose: Not Given Ketorolac Tromethamine (Toradol) 15 mg IVP Q6 PRN PRN Reason: Pain, moderate (4-7) Last Admin: 03/30/17 23:08 Dose: 15 mg Lactobacillus Acidophilus (Bacid Acidophilus) 1 cap PO BID [facility] [place] Last Admin: 03/31/17 10:00 Dose: 1 cap Meclizine HCl (Antivert) 12.5 mg PO BID [facility] Morphine Sulfate (Morphine) 1 mg IVP Q4H PRN PRN Reason: Pain, severe (8-10) Nebivolol (Bystolic) 2.5 mg PO DAILY [facility] Nifedipine (Procardia Xl) 90 mg PO DAILY [facility] Ondansetron HCl (Zofran Inj) 4 mg IVP Q6H PRN PRN Reason: Nausea/Vomiting Pantoprazole Sodium (Protonix Inj) 40 mg IVP DAILY [facility] [place] Last Admin: 03/31/17 09:11 Dose: 40 mg Topiramate (Topamax) 50 mg PO BID [facility] Physical Exam - Constitutional Appears: Non-toxic, No Acute Distress - Eye Exam Eye Exam: EOMI, Normal appearance - ENT Exam ENT Exam: Mucous Membranes Moist, Normal Exam - Neck Exam Neck exam: Positive for: Normal Inspection - Respiratory Exam Respiratory Exam: Clear to Auscultation Bilateral, NORMAL BREATHING PATTERN - Cardiovascular Exam Cardiovascular Exam: REGULAR RHYTHM, RRR - GI/Abdominal Exam GI & Abdominal Exam: Normal Bowel Sounds, Soft, Tenderness. absent: Distended, Guarding, Rebound - Extremities Exam Extremities exam: Positive for: full ROM - Neurological Exam Neurological exam: Alert, Oriented x3 - Psychiatric Exam Psychiatric exam: Normal Affect, Normal Mood - Skin Skin Exam: Dry, Intact, Normal Color, Warm Results - Vital Signs Recent Vital Signs: Last Vital Signs Temp 99.1 F 03/31/17 07:40 Pulse 66 03/31/17 07:40 Resp 20 03/31/17 07:40 BP 198/72 H 03/31/17 07:40 Pulse Ox 97 03/31/17 07:40 - Labs Result Diagrams: 03/31/17 07:09 03/31/17 07:09 Labs: Laboratory Results - last 24 hr 03/30/17 03/30/17 03/30/17 13:39 14:49 15:30 WBC RBC Hgb Hct MCV MCH MCHC RDW Plt Count MPV Neut % (Auto) Lymph % (Auto) [place] % (Auto) Eos % (Auto) Baso % (Auto) Neut # (Auto) Lymph # (Auto) [place] # (Auto) Eos # (Auto) Baso # (Auto) Neutrophils % (Manual) 79 H Band Neutrophils % 14 H* Lymphocytes % (Manual) 3 L Monocytes % (Manual) 4 Platelet Estimate Normal RBC Morphology Normal Retic Count pO2 54 VBG pH 7.31 L VBG pCO2 26 L VBG HCO3 15.6 VBG Total CO2 13.9 L VBG O2 Sat (Calc) 91.2 H VBG Base Excess -11.5 L VBG Potassium 3.3 L Sodium 138.0 Chloride 111.0 H Glucose 120 H Lactate 1.7 Potassium Carbon Dioxide Anion Gap BUN Creatinine Est GFR ( Amer) Est GFR (Non-Af Amer) POC Glucose (mg/dL) Random Glucose Hemoglobin A1c Lactic Acid Calcium Phosphorus Magnesium Iron TIBC % Saturation Ferritin Total Bilirubin AST ALT Alkaline Phosphatase Total Protein Albumin Globulin Albumin/Globulin Ratio Triglycerides Cholesterol LDL Cholesterol Direct HDL Cholesterol Venous Blood Potassium 3.3 L Urine Color Yellow Urine Clarity Clear Urine pH 7.0 Ur Specific [place] 1.012 Urine Protein 3+ H Urine Glucose (UA) 2+ H Urine Ketones Negative Urine Blood Negative Urine Nitrate Negative Urine Bilirubin Negative Urine Urobilinogen Normal Ur Leukocyte Esterase Neg Urine WBC (Auto) 1 Urine RBC (Auto) 4 H Ur Squamous Epith Cells 2 Urine Bacteria Rare Stool Leukocytes, Qual Hepatitis A IgM Ab Hep Bs Antigen Hep B Core IgM Ab Hepatitis C Antibody 03/30/17 03/30/17 03/30/17 19:41 19:50 19:59 WBC 7.4 RBC 2.90 L Hgb 9.0 L Hct 26.6 L MCV 91.5 MCH 31.1 H MCHC 33.9 RDW 14.3 Plt Count 116 L MPV 9.9 Neut % (Auto) 87.6 H Lymph % (Auto) 5.1 L [place] % (Auto) 7.0 Eos % (Auto) 0.0 Baso % (Auto) 0.3 Neut # (Auto) 6.5 Lymph # (Auto) 0.4 L [place] # (Auto) 0.5 Eos # (Auto) 0.0 Baso # (Auto) 0.0 Neutrophils % (Manual) 56 Band Neutrophils % 36 H* Lymphocytes % (Manual) 4 L Monocytes % (Manual) 4 Platelet Estimate Slightly decreased L RBC Morphology Normal Retic Count pO2 63 H VBG pH 7.34 VBG pCO2 26 L VBG HCO3 16.9 VBG Total CO2 14.8 L VBG O2 Sat (Calc) 97.8 H VBG Base Excess -10.1 L VBG Potassium 4.4 Sodium 139.0 Chloride 117.0 H Glucose 137 H Lactate 0.9 Potassium Carbon Dioxide Anion Gap BUN Creatinine Est GFR ( Amer) Est GFR (Non-Af Amer) POC Glucose (mg/dL) Random Glucose Hemoglobin A1c Lactic Acid Calcium Phosphorus Magnesium Iron TIBC % Saturation Ferritin Total Bilirubin AST ALT Alkaline Phosphatase Total Protein Albumin Globulin Albumin/Globulin Ratio Triglycerides Cholesterol LDL Cholesterol Direct HDL Cholesterol Venous Blood Potassium 4.4 Urine Color Urine Clarity Urine pH Ur Specific Endeavor Urine Protein Urine Glucose (UA) Urine Ketones Urine Blood Urine Nitrate Urine Bilirubin Urine Urobilinogen Ur Leukocyte Esterase Urine WBC (Auto) Urine RBC (Auto) Ur Squamous Epith Cells Urine Bacteria Stool Leukocytes, Qual Negative Hepatitis A IgM Ab Hep Bs Antigen Hep B Core IgM Ab Hepatitis C Antibody 03/30/17 03/30/17 03/30/17 19:59 20:48 22:34 WBC RBC Hgb Hct MCV MCH MCHC RDW Plt Count MPV Neut % (Auto) Lymph % (Auto) [place] % (Auto) Eos % (Auto) Baso % (Auto) Neut # (Auto) Lymph # (Auto) [place] # (Auto) Eos # (Auto) Baso # (Auto) Neutrophils % (Manual) Band Neutrophils % Lymphocytes % (Manual) Monocytes % (Manual) Platelet Estimate RBC Morphology Retic Count pO2 VBG pH VBG pCO2 VBG HCO3 VBG Total CO2 VBG O2 Sat (Calc) VBG Base Excess VBG Potassium Sodium Chloride Glucose Lactate Potassium Carbon Dioxide Anion Gap BUN Creatinine Est GFR ( Amer) Est GFR (Non-Af Amer) POC Glucose (mg/dL) 143 H Random Glucose Hemoglobin A1c 5.1 Lactic Acid Calcium Phosphorus Magnesium Iron TIBC % Saturation Ferritin Total Bilirubin AST ALT Alkaline Phosphatase Total Protein Albumin Globulin Albumin/Globulin Ratio Triglycerides Cholesterol LDL Cholesterol Direct HDL Cholesterol Venous Blood Potassium Urine Color Urine Clarity Urine pH Ur Specific Ende[place] Urine Protein Urine Glucose (UA) Urine Ketones Urine Blood Urine Nitrate Urine Bilirubin Urine Urobilinogen Ur Leukocyte Esterase Urine WBC (Auto) Urine RBC (Auto) Ur Squamous Epith Cells Urine Bacteria Stool Leukocytes, Qual Hepatitis A IgM Ab Negative Hep Bs Antigen Negative Hep B Core IgM Ab Negative Hepatitis C Antibody Negative 03/31/17 03/31/17 03/31/17 07:07 07:09 07:09 WBC 7.4 RBC 2.92 L Hgb 9.3 L Hct 26.8 L MCV 91.7 MCH 31.8 H MCHC 34.7 RDW 14.7 H Plt Count 126 L MPV 10.0 Neut % (Auto) 83.0 H Lymph % (Auto) 10.5 L [place] % (Auto) 4.9 Eos % (Auto) 1.4 Baso % (Auto) 0.2 Neut # (Auto) 6.1 Lymph # (Auto) 0.8 L [place] # (Auto) 0.4 Eos # (Auto) 0.1 Baso # (Auto) 0.0 Neutrophils % (Manual) Band Neutrophils % Lymphocytes % (Manual) Monocytes % (Manual) Platelet Estimate RBC Morphology Retic Count pO2 VBG pH VBG pCO2 VBG HCO3 VBG Total CO2 VBG O2 Sat (Calc) VBG Base Excess VBG Potassium Sodium 139 Chloride 115 H Glucose Lactate Potassium 3.9 Carbon Dioxide 14 L Anion Gap 14 BUN 23 H Creatinine 2.2 H Est GFR ( Amer) 26 Est GFR (Non-Af Amer) 22 POC Glucose (mg/dL) 99 Random Glucose 100 Hemoglobin A1c Lactic Acid Calcium 8.5 L Phosphorus 3.9 Magnesium 2.1 Iron TIBC % Saturation Ferritin 103.0 Total Bilirubin 4.8 H AST 127 H D ALT 187 H D Alkaline Phosphatase 591 H D Total Protein 6.8 Albumin 3.1 L Globulin 3.8 Albumin/Globulin Ratio 0.8 L Triglycerides 115 D Cholesterol 186 LDL Cholesterol Direct 97 HDL Cholesterol 37 Venous Blood Potassium Urine Color Urine Clarity Urine pH Ur Specific [place] Urine Protein Urine Glucose (UA) Urine Ketones Urine Blood Urine Nitrate Urine Bilirubin Urine Urobilinogen Ur Leukocyte Esterase Urine WBC (Auto) Urine RBC (Auto) Ur Squamous Epith Cells Urine Bacteria Stool Leukocytes, Qual Hepatitis A IgM Ab Hep Bs Antigen Hep B Core IgM Ab Hepatitis C Antibody 03/31/17 03/31/17 03/31/17 07:09 07:09 07:09 WBC RBC Hgb Hct MCV MCH MCHC RDW Plt Count MPV Neut % (Auto) Lymph % (Auto) [place] % (Auto) Eos % (Auto) Baso % (Auto) Neut # (Auto) Lymph # (Auto) [place] # (Auto) Eos # (Auto) Baso # (Auto) Neutrophils % (Manual) Band Neutrophils % Lymphocytes % (Manual) Monocytes % (Manual) Platelet Estimate RBC Morphology Retic Count 1.5 pO2 VBG pH VBG pCO2 VBG HCO3 VBG Total CO2 VBG O2 Sat (Calc) VBG Base Excess VBG Potassium Sodium Chloride Glucose Lactate Potassium Carbon Dioxide Anion Gap BUN Creatinine Est GFR ( Amer) Est GFR (Non-Af Amer) POC Glucose (mg/dL) Random Glucose Hemoglobin A1c Lactic Acid 0.8 Calcium Phosphorus Magnesium Iron 23 L TIBC 259 % Saturation 9 L Ferritin Total Bilirubin AST ALT Alkaline Phosphatase Total Protein Albumin Globulin Albumin/Globulin Ratio Triglycerides Cholesterol LDL Cholesterol Direct HDL Cholesterol Venous Blood Potassium Urine Color Urine Clarity Urine pH Ur Specific [place] Urine Protein Urine Glucose (UA) Urine Ketones Urine Blood Urine Nitrate Urine Bilirubin Urine Urobilinogen Ur Leukocyte Esterase Urine WBC (Auto) Urine RBC (Auto) Ur Squamous Epith Cells Urine Bacteria Stool Leukocytes, Qual Hepatitis A IgM Ab Hep Bs Antigen Hep B Core IgM Ab Hepatitis C Antibody 03/31/17 11:08 WBC RBC Hgb Hct MCV MCH MCHC RDW Plt Count MPV Neut % (Auto) Lymph % (Auto) [place] % (Auto) Eos % (Auto) Baso % (Auto) Neut # (Auto) Lymph # (Auto) [place] # (Auto) Eos # (Auto) Baso # (Auto) Neutrophils % (Manual) Band Neutrophils % Lymphocytes % (Manual) Monocytes % (Manual) Platelet Estimate RBC Morphology Retic Count pO2 VBG pH VBG pCO2 VBG HCO3 VBG Total CO2 VBG O2 Sat (Calc) VBG Base Excess VBG Potassium Sodium Chloride Glucose Lactate Potassium Carbon Dioxide Anion Gap BUN Creatinine Est GFR ( Amer) Est GFR (Non-Af Amer) POC Glucose (mg/dL) 135 H Random Glucose Hemoglobin A1c Lactic Acid Calcium Phosphorus Magnesium Iron TIBC % Saturation Ferritin Total Bilirubin AST ALT Alkaline Phosphatase Total Protein Albumin Globulin Albumin/Globulin Ratio Triglycerides Cholesterol LDL Cholesterol Direct HDL Cholesterol Venous Blood Potassium Urine Color Urine Clarity Urine pH Ur Specific [place] Urine Protein Urine Glucose (UA) Urine Ketones Urine Blood Urine Nitrate Urine Bilirubin Urine Urobilinogen Ur Leukocyte Esterase Urine WBC (Auto) Urine RBC (Auto) Ur Squamous Epith Cells Urine Bacteria Stool Leukocytes, Qual Hepatitis A IgM Ab Hep Bs Antigen Hep B Core IgM Ab Hepatitis C Antibody Assessment & Plan - Assessment and Plan (Free Text) Assessment: 76 Female with PMHx HTN, DM, CKD, RA, OA presents to the ED with abdominal pain x 1 day. 1. Abdominal pain 2. Elevated LFTs-r/o choledocholethiasis Plan: -Continue supportive care with pain control and anti-emetics -Elevated LFTs, concern for choledocholithiasis s/p cholecystectomy -Plan for MRCP today, may need EUS/ERCP -Abx per primary team -Clear liquid diet -Will continue to follow closely <Singh Niadu - Last Filed: 03/31/17 15:06> Meds - Medications Medications: Current Medications Acetaminophen (Tylenol 325mg Tab) 650 mg PO Q6 PRN PRN Reason: Fever >100.4 F Clopidogrel Bisulfate (Plavix) 75 mg PO DAILY [facility] Heparin Sodium (Porcine) (Heparin) 5,000 units SC Q12 [facility] Last Admin: 03/31/17 09:16 Dose: 5,000 units Home Med (Dextromethorphan Hbr/Quinidine [Nuedexta 20-10 Mg Capsule]) 1 tab PO BID [facility] Vancomycin/Sodium Chloride (Vancomycin 1 Gm/Ns 200 Ml) 1 gm in 200 mls @ 133 mls/hr IVPB Q24H [facility] Stop: 04/04/17 23:31 Last Admin: 03/30/17 23:13 Dose: 133 mls/hr Piperacillin Sod/Tazobactam Sod (Zosyn 2.25 Gm Iv Premix) 2.25 gm in 50 mls @ 100 mls/hr IVPB Q6H [facility] Last Admin: 03/31/17 13:39 Dose: 100 mls/hr Dextrose/Sodium Chloride (Dextrose 5%/0.9% Ns 1000 Ml) 1,000 mls @ 100 mls/hr IV .Q10H [facility] Last Admin: 03/31/17 09:12 Dose: 100 mls/hr Insulin Human Regular (Novolin R) 0 unit SC ACHS [facility] PRN Reason: Protocol Last Admin: 03/31/17 11:27 Dose: Not Given Ketorolac Tromethamine (Toradol) 15 mg IVP Q6 PRN PRN Reason: Pain, moderate (4-7) Last Admin: 03/30/17 23:08 Dose: 15 mg Lactobacillus Acidophilus (Bacid Acidophilus) 1 cap PO BID [facility] Last Admin: 03/31/17 10:00 Dose: 1 cap Morphine Sulfate (Morphine) 1 mg IVP Q4H PRN PRN Reason: Pain, severe (8-10) Nebivolol (Bystolic) 2.5 mg PO DAILY [facility] Nifedipine (Procardia Xl) 90 mg PO DAILY [facility] Ondansetron HCl (Zofran Inj) 4 mg IVP Q6H PRN PRN Reason: Nausea/Vomiting Pantoprazole Sodium (Protonix Inj) 40 mg IVP DAILY [facility] Last Admin: 03/31/17 09:11 Dose: 40 mg Topiramate (Topamax) 50 mg PO BID [facility] Results - Vital Signs Recent Vital Signs: Last Vital Signs Temp 99.1 F 03/31/17 07:40 Pulse 66 03/31/17 07:40 Resp 20 03/31/17 07:40 BP 198/72 H 03/31/17 07:40 Pulse Ox 97 03/31/17 07:40 - Labs Result Diagrams: 03/31/17 07:09 03/31/17 07:09 Labs: Laboratory Results - last 24 hr 03/30/17 03/30/17 03/30/17 15:30 19:41 19:50 WBC RBC Hgb Hct MCV MCH MCHC RDW Plt Count MPV Neut % (Auto) Lymph % (Auto) [place] % (Auto) Eos % (Auto) Baso % (Auto) Neut # (Auto) Lymph # (Auto) [place] # (Auto) Eos # (Auto) Baso # (Auto) Neutrophils % (Manual) Band Neutrophils % Lymphocytes % (Manual) Monocytes % (Manual) Platelet Estimate RBC Morphology Retic Count pO2 54 63 H VBG pH 7.31 L 7.34 VBG pCO2 26 L 26 L VBG HCO3 15.6 16.9 VBG Total CO2 13.9 L 14.8 L VBG O2 Sat (Calc) 91.2 H 97.8 H VBG Base Excess -11.5 L -10.1 L VBG Potassium 3.3 L 4.4 Sodium 138.0 139.0 Chloride 111.0 H 117.0 H Glucose 120 H 137 H Lactate 1.7 0.9 Potassium Carbon Dioxide Anion Gap BUN Creatinine Est GFR ( Amer) Est GFR (Non-Af Amer) POC Glucose (mg/dL) Random Glucose Hemoglobin A1c Lactic Acid Calcium Phosphorus Magnesium Iron TIBC % Saturation Ferritin Total Bilirubin AST ALT Alkaline Phosphatase Total Protein Albumin Globulin Albumin/Globulin Ratio Triglycerides Cholesterol LDL Cholesterol Direct HDL Cholesterol Venous Blood Potassium 3.3 L 4.4 Stool Leukocytes, Qual Negative Hepatitis A IgM Ab Hep Bs Antigen Hep B Core IgM Ab Hepatitis C Antibody 03/30/17 03/30/17 03/30/17 19:59 19:59 20:48 WBC 7.4 RBC 2.90 L Hgb 9.0 L Hct 26.6 L MCV 91.5 MCH 31.1 H MCHC 33.9 RDW 14.3 Plt Count 116 L MPV 9.9 Neut % (Auto) 87.6 H Lymph % (Auto) 5.1 L [place] % (Auto) 7.0 Eos % (Auto) 0.0 Baso % (Auto) 0.3 Neut # (Auto) 6.5 Lymph # (Auto) 0.4 L [place] # (Auto) 0.5 Eos # (Auto) 0.0 Baso # (Auto) 0.0 Neutrophils % (Manual) 56 Band Neutrophils % 36 H* Lymphocytes % (Manual) 4 L Monocytes % (Manual) 4 Platelet Estimate Slightly decreased L RBC Morphology Normal Retic Count pO2 VBG pH VBG pCO2 VBG HCO3 VBG Total CO2 VBG O2 Sat (Calc) VBG Base Excess VBG Potassium Sodium Chloride Glucose Lactate Potassium Carbon Dioxide Anion Gap BUN Creatinine Est GFR ( Amer) Est GFR (Non-Af Amer) POC Glucose (mg/dL) Random Glucose Hemoglobin A1c 5.1 Lactic Acid Calcium Phosphorus Magnesium Iron TIBC % Saturation Ferritin Total Bilirubin AST ALT Alkaline Phosphatase Total Protein Albumin Globulin Albumin/Globulin Ratio Triglycerides Cholesterol LDL Cholesterol Direct HDL Cholesterol Venous Blood Potassium Stool Leukocytes, Qual Hepatitis A IgM Ab Negative Hep Bs Antigen Negative Hep B Core IgM Ab Negative Hepatitis C Antibody Negative 03/30/17 03/31/17 03/31/17 22:34 07:07 07:09 WBC 7.4 RBC 2.92 L Hgb 9.3 L Hct 26.8 L MCV 91.7 MCH 31.8 H MCHC 34.7 RDW 14.7 H Plt Count 126 L MPV 10.0 Neut % (Auto) 83.0 H Lymph % (Auto) 10.5 L [place] % (Auto) 4.9 Eos % (Auto) 1.4 Baso % (Auto) 0.2 Neut # (Auto) 6.1 Lymph # (Auto) 0.8 L [place] # (Auto) 0.4 Eos # (Auto) 0.1 Baso # (Auto) 0.0 Neutrophils % (Manual) Band Neutrophils % Lymphocytes % (Manual) Monocytes % (Manual) Platelet Estimate RBC Morphology Retic Count pO2 VBG pH VBG pCO2 VBG HCO3 VBG Total CO2 VBG O2 Sat (Calc) VBG Base Excess VBG Potassium Sodium Chloride Glucose Lactate Potassium Carbon Dioxide Anion Gap BUN Creatinine Est GFR ( Amer) Est GFR (Non-Af Amer) POC Glucose (mg/dL) 143 H 99 Random Glucose Hemoglobin A1c Lactic Acid Calcium Phosphorus Magnesium Iron TIBC % Saturation Ferritin Total Bilirubin AST ALT Alkaline Phosphatase Total Protein Albumin Globulin Albumin/Globulin Ratio Triglycerides Cholesterol LDL Cholesterol Direct HDL Cholesterol Venous Blood Potassium Stool Leukocytes, Qual Hepatitis A IgM Ab Hep Bs Antigen Hep B Core IgM Ab Hepatitis C Antibody 03/31/17 03/31/17 03/31/17 07:09 07:09 07:09 WBC RBC Hgb Hct MCV MCH MCHC RDW Plt Count MPV Neut % (Auto) Lymph % (Auto) [place] % (Auto) Eos % (Auto) Baso % (Auto) Neut # (Auto) Lymph # (Auto) [place] # (Auto) Eos # (Auto) Baso # (Auto) Neutrophils % (Manual) Band Neutrophils % Lymphocytes % (Manual) Monocytes % (Manual) Platelet Estimate RBC Morphology Retic Count 1.5 pO2 VBG pH VBG pCO2 VBG HCO3 VBG Total CO2 VBG O2 Sat (Calc) VBG Base Excess VBG Potassium Sodium 139 Chloride 115 H Glucose Lactate Potassium 3.9 Carbon Dioxide 14 L Anion Gap 14 BUN 23 H Creatinine 2.2 H Est GFR ( Amer) 26 Est GFR (Non-Af Amer) 22 POC Glucose (mg/dL) Random Glucose 100 Hemoglobin A1c Lactic Acid Calcium 8.5 L Phosphorus 3.9 Magnesium 2.1 Iron 23 L TIBC 259 % Saturation 9 L Ferritin 103.0 Total Bilirubin 4.8 H AST 127 H D ALT 187 H D Alkaline Phosphatase 591 H D Total Protein 6.8 Albumin 3.1 L Globulin 3.8 Albumin/Globulin Ratio 0.8 L Triglycerides 115 D Cholesterol 186 LDL Cholesterol Direct 97 HDL Cholesterol 37 Venous Blood Potassium Stool Leukocytes, Qual Hepatitis A IgM Ab Hep Bs Antigen Hep B Core IgM Ab Hepatitis C Antibody 03/31/17 03/31/17 07:09 11:08 WBC RBC Hgb Hct MCV MCH MCHC RDW Plt Count MPV Neut % (Auto) Lymph % (Auto) [place] % (Auto) Eos % (Auto) Baso % (Auto) Neut # (Auto) Lymph # (Auto) [place] # (Auto) Eos # (Auto) Baso # (Auto) Neutrophils % (Manual) Band Neutrophils % Lymphocytes % (Manual) Monocytes % (Manual) Platelet Estimate RBC Morphology Retic Count pO2 VBG pH VBG pCO2 VBG HCO3 VBG Total CO2 VBG O2 Sat (Calc) VBG Base Excess VBG Potassium Sodium Chloride Glucose Lactate Potassium Carbon Dioxide Anion Gap BUN Creatinine Est GFR ( Amer) Est GFR (Non-Af Amer) POC Glucose (mg/dL) 135 H Random Glucose Hemoglobin A1c Lactic Acid 0.8 Calcium Phosphorus Magnesium Iron TIBC % Saturation Ferritin Total Bilirubin AST ALT Alkaline Phosphatase Total Protein Albumin Globulin Albumin/Globulin Ratio Triglycerides Cholesterol LDL Cholesterol Direct HDL Cholesterol Venous Blood Potassium Stool Leukocytes, Qual Hepatitis A IgM Ab Hep Bs Antigen Hep B Core IgM Ab Hepatitis C Antibody Attending/Attestation - Attestation I have personally seen and examined this patient.: Yes I have fully participated in the care of the patient.: Yes I have reviewed all pertinent clinical information: Yes Notes (Text): 03/31/17 15:03 76 year old female with h/o CAD, HTN, CKD, RA, OA a/w abdominal pain and jaundice. 1. Abdominal pain 2. Jaundice Plan: -suspect choledocholithiasis, ddx also includes biliary obstruction from other causes or liver disease -recommend MRCP for further eval -empiric antibiotics recommended -recommend cardiology eval considering h/o CAD, plavix, and possible CHF as she may need general anasthesia for any procedure and would need preop optimiziation and clearance -recommend eval for chronic liver disease also -pain control / supportive care in the meantime
--- NOTE | 2017-03-31 16:32 | RAD ---
PROCEDURE: CHEST RADIOGRAPH, 1 VIEW HISTORY: Bandemia COMPARISON: Comparison is made with 01/08/2017 FINDINGS: LUNGS: Interval worsening of perihilar reticular and small opacities since the previous exam. Otherwise no interval change P PLEURA: No pneumothorax or pleural fluid seen. CARDIOVASCULAR: The cardiac silhouette at these larger compared to the previous exam. Normal. OSSEOUS STRUCTURES: No significant abnormalities. VISUALIZED UPPER ABDOMEN: Normal. OTHER FINDINGS: None. IMPRESSION: Pulmonary venous congestion and interval increased perihilar reticular and small nodular opacities since the previous exam.
--- NOTE | 2017-03-31 16:56 | MRI ---
PROCEDURE: Magnetic Resonance Cholangiopancreatography HISTORY: Evaluate for choledocholithiasis COMPARISON: Comparison is made to the previous CT dated 03/30/2017. TECHNIQUE: Multiplanar, multisequence MR images of the abdomen were obtained, including heavily T2 weighted MRCP images of the biliary system. Rotating maximum intensity projection images of the biliary system were generated. FINDINGS: MRCP: There is moderate to market dilate a flores of the proximal and midportion of the CBD measures up to 27 millimeter in the transverse diameter. There is large filling defect at the distal portion of the CBD may represent choledocholithiasis. The possibility of ductal stricture or neoplasm is less likely but not totally excluded. LIVER: Hepatomegaly is noted. Cirrhotic manifestation of the liver are also noted. No evident of discrete mass lesion in the liver in this suboptimal noncontrast study. GALLBLADDER: Status post cholecystectomy. SPLEEN: Mild splenomegaly is noted could be due to portal hypertension. PANCREAS: Small size pancreas. The main pancreatic duct is not dilated. There is 6.3 millimeter cyst seen at the pancreatic head image 29 series 9. ADRENALS: Unremarkable. KIDNEYS: No evidence of hydronephrosis. There is cyst seen at the mid to upper pole left kidney measures 10.6 millimeter. AORTA: No aneurysm. ASCITES: Trace amount of ascites is noted in the right upper abdomen. OTHER FINDINGS: None. IMPRESSION: Moderately to markedly dilated proximal common bile duct. Large filling defect noted in the distal common bile duct could represent multiple choledocholithiasis. Differential consideration includes less likely distal CBD neoplasm or stricture. [id number] intrahepatic biliary ductal dilatation. Cirrhosis with findings suggestive of portal hypertension including splenomegaly and trace ascites. 6.3 millimeter cyst at the pancreatic head. Interval follow-up reassessment is suggested.
[2017-03-31] MEDS ORDERED: QUINIDINE PO SCH (18:00)
[2017-03-31] MEDS ORDERED: DEXTROMETHORPHAN HBR PO SCH (18:00)
[2017-03-31] MEDS: Vancomycin 1 gm/NS 200 ml 1 GM/200 ML BAG IVPB SCH (23:41)
[2017-04-01] MEDS: Piperacill/Tazo 2.25gm in Dex 2.25 GM/50 ML BAG IVPB SCH ×4 (02:00→20:00)
[2017-04-01] MEDS: Dextrose 5%/0.9% NS 1,000 ML IV SCH (05:19)
[2017-04-01] MEDS: (Novolin R) Insulin Human Regular 100 units/ml vial SC SCH ×4 (07:56→22:00)
[2017-04-01] MEDS ORDERED: Dextrose 5%/0.9% NS 1,000 ML IV SCH (08:23)
[2017-04-01 08:53] LABS: BASO % 0.5 % (0.0-2.0); EOS # 0.1 K/uL (0.0-0.7); EOS % 2.8 % (0.0-4.0); HEMOGLOBIN 8.8 g/dL (11.0-16.0); LYMPH # 1.1 K/uL (1.0-4.3); LYMPH % 23.4 % (20.0-40.0); MEAN CELL VOLUME 92.4 fL (81.0-99.0); MEAN CORPUSCULAR HEMOGLOBIN 31.4 pg (27.0-31.0); MEAN CORPUSCULAR HGB CONC 33.9 g/dL (33.0-37.0); MEAN PLATELET VOLUME 10.6 fL (7.2-11.7); MONO # 0.3 K/uL (0.0-0.8); MONO % 5.4 % (0.0-10.0); NEUT # 3.2 K/uL (1.8-7.0); NEUT % 67.9 % (50.0-75.0); RBC 2.82 Mil/uL (3.80-5.20); RED CELL DISTRIBUTION WIDTH 14.8 % (11.5-14.5); WHITE BLOOD COUNT 4.7 K/uL (4.8-10.8)
[2017-04-01 08:54] LABS: INR 1.4; PROTHROMBIN TIME 15.8 SECONDS (9.7-12.2)
[2017-04-01 09:15] LABS: ALB/GLOB RATIO 0.7 (1.0-2.1); ALBUMIN 2.7 g/dL (3.5-5.0); CALCIUM 7.9 mg/dl (8.6-10.4); IRON 44 ug/dL (37-170); MAGNESIUM 2.1 mg/dL (1.6-2.3)
[2017-04-01 09:17] LABS: TOTAL IRON BINDING CAPACITY 218 ug/dL (250-450)
[2017-04-01 09:29] LABS: % IRON SATURATION 20 (20-55)
[2017-04-01 10:14] LABS: HEPATITIS B SURFACE AG Negative (NEGATIVE)
[2017-04-01 10:20] LABS: HEPATITIS A IGM NEGATIVE (NEGATIVE); HEPATITIS B CORE AB NEGATIVE (NEGATIVE)
[2017-04-01 10:31] LABS: HEPATITIS C ANTIBODY NEGATIVE (NEGATIVE)
--- NOTE | 2017-04-01 10:42 | CP.PCM.PN ---
<Mickie Katz - Last Filed: 04/01/17 10:15> Subjective - Date & Time of Evaluation Date of Evaluation: 04/01/17 Time of Evaluation: 10:15 - Subjective Subjective: Patient seen and examined at bedside. Patient resting comfortbaly in bed with no new complaints at this time. No acute events overnight. Abdominal pain is improving. Denies chest pain, SOB, N&V, diarrhea, leg pain/swelling. Objective - Vital Signs/Intake and Output Vital Signs (last 24 hours): Temp Pulse Resp BP Pulse Ox 98.5 F 78 20 110/61 96 04/01/17 07:40 04/01/17 07:40 04/01/17 07:40 04/01/17 07:40 04/01/17 07:40 Intake and Output: 04/01/17 04/01/17 06:59 18:59 Intake Total 1040 1220 Balance 1040 1220 - Medications Medications: Current Medications Acetaminophen (Tylenol 325mg Tab) 650 mg PO Q6 PRN PRN Reason: Fever >100.4 F Clopidogrel Bisulfate (Plavix) 75 mg PO DAILY [facility] Last Admin: 03/31/17 14:20 Dose: 75 mg Heparin Sodium (Porcine) (Heparin) 5,000 units SC Q12 [facility] Last Admin: 03/31/17 21:50 Dose: 5,000 units Home Med (Dextromethorphan Hbr/Quinidine [Nuedexta 20-10 Mg Capsule]) 1 tab PO BID [facility] Vancomycin/Sodium Chloride (Vancomycin 1 Gm/Ns 200 Ml) 1 gm in 200 mls @ 133 mls/hr IVPB Q24H [facility] Stop: 04/04/17 23:31 Last Admin: 03/31/17 23:41 Dose: 133 mls/hr Piperacillin Sod/Tazobactam Sod (Zosyn 2.25 Gm Iv Premix) 2.25 gm in 50 mls @ 100 mls/hr IVPB Q6H [facility] Last Admin: 04/01/17 08:52 Dose: 100 mls/hr Dextrose/Sodium Chloride (Dextrose 5%/0.9% Ns 1000 Ml) 1,000 mls @ 80 mls/hr IV .[id number] [facility] Last Admin: 04/01/17 08:52 Dose: 80 mls/hr Insulin Human Regular (Novolin R) 0 unit SC ACHS [facility] PRN Reason: Protocol Last Admin: 04/01/17 07:56 Dose: Not Given Ketorolac Tromethamine (Toradol) 15 mg IVP Q6 PRN PRN Reason: Pain, moderate (4-7) Last Admin: 03/30/17 23:08 Dose: 15 mg Lactobacillus Acidophilus (Bacid Acidophilus) 1 cap PO BID [facility] Last Admin: 03/31/17 17:49 Dose: 1 cap Morphine Sulfate (Morphine) 1 mg IVP Q4H PRN PRN Reason: Pain, severe (8-10) Nebivolol (Bystolic) 2.5 mg PO DAILY [facility] Last Admin: 03/31/17 14:15 Dose: 2.5 mg Nifedipine (Procardia Xl) 90 mg PO DAILY [facility] Last Admin: 03/31/17 14:25 Dose: 90 mg Ondansetron HCl (Zofran Inj) 4 mg IVP Q6H PRN PRN Reason: Nausea/Vomiting Pantoprazole Sodium (Protonix Inj) 40 mg IVP DAILY [facility] Last Admin: 03/31/17 09:11 Dose: 40 mg Topiramate (Topamax) 50 mg PO BID [facility] Last Admin: 03/31/17 17:51 Dose: 50 mg - Labs Labs: 04/01/17 08:34 04/01/17 08:34 PT 15.8 SECONDS (9.7-12.2) H 04/01/17 08:34 INR 1.4 04/01/17 08:34 - Additional Findings Additional findings: - Constitutional Appears: Non-toxic, No Acute Distress - Head Exam Head Exam: ATRAUMATIC, NORMAL INSPECTION, NORMOCEPHALIC - Eye Exam Eye Exam: EOMI, Normal appearance, PERRL - ENT Exam ENT Exam: Mucous Membranes Moist - Respiratory Exam Respiratory Exam: Rales (Right base), NORMAL BREATHING PATTERN. absent: Accessory Muscle Use, Rhonchi, Wheezes, Respiratory Distress - Cardiovascular Exam Cardiovascular Exam: RRR, +S1, +S2 - GI/Abdominal Exam GI & Abdominal Exam: Soft, Tenderness (generalized), Normal Bowel Sounds. absent: Distended - Extremities Exam Extremities Exam: Normal Inspection. absent: Calf Tenderness, Pedal Edema - Neurological Exam Neurological Exam: Alert, Awake, Oriented x3 - Psychiatric Exam Psychiatric exam: Normal Affect, Normal Mood - Skin Skin Exam: Dry, Intact, Normal Color, Warm Assessment and Plan - Assessment and Plan (Free Text) Plan: Colitis * GI consulted -Dr. Naidu- help appreciated * SIRS: Febrile, bandemia- high of 36 , lactate normal x 2 * Blood Cultures negative x24h * Stool culture: preliminary read showing lactose lock operator, sub selenite broth * Negative stool leukocytes Imaging: * CT ab/pel: Mild colitis limited to the ascending colon, small pericardial effusion and cardiomegaly * Abdominal Obstructive Xray: Cardiomegaly. Mild bibasilar atelectasis. Cholecystectomy clips. Nonspecific bowel gas pattern. Meds: * NS discontinued 04/01 since diet changed to CLD * Zosyn Q6H, Vanco Q daily, f/u vanco trough * Probiotics 2 hours prior to abx administration * Toradol, Morphine, Zofran PRN Transaminitis & Elevated Total Bilirubin * GI consulted - Dr. Naidu- help appreciated * AST/ALT: 307/290, Alk phos 866, T Bili: 2.6 * Hepatitis panel - negative * Normal findings on 03/30 CT scan regarding liver * 03/31 MRCP showed moderately to markedly dilated proximal common bile duct with large filling defect noted in the distal common bile duct, which could represent multiple choledocholithiasis (differential consideration includes less likely distal CBD neoplasm or stricture). Also noted [id number] intrahepatic biliary ductal dilatation, cirrhosis with findings suggestive of portal hypertension including splenomegaly and trace ascites, and 6.3 millimeter cyst at the pancreatic head. * GI plans for ERCP to place stent, saying that stone will have to be removed at a later date because of patient being on blood thinners * Cardiology consulted for cario clearance and echo ordered for findings seen on CT abd/pelvis Fever * Tmax: 100.6 on 03/30/17 * No leukocytosis * Rales in RLL * CXR (03/31): Pulmonary venous congestion and interval increased perihilar reticular and small nodular opacities since the previous exam * stopped fluids on 04/01 and started CLD * ID consulted, Dr. Owens, help appreciated Anemia * Baseline hemoglobin 10 * On admission 9 * Retic count 1.5 * Iron 23 * TIBC 259 * % Saturation 9 * Ferritin 103 CKD, Stage 4 * Not on dialysis * Baseline creatine 1-1.5 * On admission 2.2 with GFR * Will continue with IVF HTN * Bystolic and nifedipine XL continued (home meds) * Lipid panel noted: Tri, Chol: 186, LDL: 97, HDL: 37 T2DM * Accuchecks * A1C- 5.1 * ISS- low * CLD Prophylactic Measures * GI PPX: Protonix 40mg PO daily * DVT PPX: SCDs, VTE c/i due to symptomatic anemia <Kvng Hart - Last Filed: 04/01/17 16:58> Objective - Vital Signs/Intake and Output Vital Signs (last 24 hours): Temp Pulse Resp BP Pulse Ox 98.5 F 78 20 110/61 96 04/01/17 07:40 04/01/17 07:40 04/01/17 07:40 04/01/17 07:40 04/01/17 07:40 Intake and Output: 04/01/17 04/01/17 06:59 18:59 Intake Total 1040 1220 Balance 1040 1220 - Medications Medications: Current Medications Acetaminophen (Tylenol 325mg Tab) 650 mg PO Q6 PRN PRN Reason: Fever >100.4 F Clopidogrel Bisulfate (Plavix) 75 mg PO DAILY [facility] Last Admin: 04/01/17 11:58 Dose: Not Given Heparin Sodium (Porcine) (Heparin) 5,000 units SC Q12 [facility] Last Admin: 04/01/17 11:58 Dose: Not Given Home Med (Dextromethorphan Hbr/Quinidine [Nuedexta 20-10 Mg Capsule]) 1 tab PO BID [facility] Piperacillin Sod/Tazobactam Sod (Zosyn 2.25 Gm Iv Premix) 2.25 gm in 50 mls @ 100 mls/hr IVPB Q6H [facility] Last Admin: 04/01/17 14:24 Dose: 100 mls/hr Insulin Human Regular (Novolin R) 0 unit SC ACHS [facility] PRN Reason: Protocol Last Admin: 04/01/17 11:59 Dose: Not Given Ketorolac Tromethamine (Toradol) 15 mg IVP Q6 PRN PRN Reason: Pain, moderate (4-7) Last Admin: 03/30/17 23:08 Dose: 15 mg Lactobacillus Acidophilus (Bacid Acidophilus) 1 cap PO BID [facility] Last Admin: 04/01/17 10:50 Dose: 1 cap Morphine Sulfate (Morphine) 1 mg IVP Q4H PRN PRN Reason: Pain, severe (8-10) Nebivolol (Bystolic) 2.5 mg PO DAILY [facility] Last Admin: 04/01/17 10:50 Dose: 2.5 mg Nifedipine (Procardia Xl) 90 mg PO DAILY [facility] Last Admin: 04/01/17 10:50 Dose: 90 mg Ondansetron HCl (Zofran Inj) 4 mg IVP Q6H PRN PRN Reason: Nausea/Vomiting Pantoprazole Sodium (Protonix Inj) 40 mg IVP DAILY [facility] Last Admin: 03/31/17 09:11 Dose: 40 mg Topiramate (Topamax) 50 mg PO BID [facility] Last Admin: 04/01/17 10:50 Dose: 50 mg - Labs Labs: 04/01/17 08:34 04/01/17 08:34 PT 15.8 SECONDS (9.7-12.2) H 04/01/17 08:34 INR 1.4 04/01/17 08:34 Attending/Attestation - Attestation I have personally seen and examined this patient.: Yes I have fully participated in the care of the patient.: Yes I have reviewed all pertinent clinical information, including history, physical exam and plan: Yes Notes (Text): Seen and examined patient feels better,denies abdominal pain Spoke to her son at bedside. 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 Her LFT are high,Increasing bilirubin. Pain is much better. INR 1.4. She is also getting plavix Has history of CHF. Chest x ray mild congestion . Hold IV fluids,Liquid diet now ,no vomiting, no abdominal pain,NPO after midnight Pending ECHO and cardiology consult Chronic renal failure-Monitor creatinine,renal dose antibiotics,off vanco, cultures are negative Discussed with the resident 04/01/17 16:51 04/01/17 16:57
[2017-04-01] MEDS: Lactobacillus Acidophilus 500 MU Cap PO SCH ×2 (10:50→18:01)
[2017-04-01] MEDS: NIFEdipine 90 mg ER Tab PO SCH (10:50)
--- NOTE | 2017-04-01 12:35 | CP.PCM.PN ---
<ShayBelinda - Last Filed: 04/01/17 12:38> Subjective - Date & Time of Evaluation Date of Evaluation: 04/01/17 Time of Evaluation: 09:00 - Subjective Subjective: GI Fellow PGY4 Progress Note Pt seen and evaluated at bedside, pt reports no abdominal pain this morning, no nausea and vomiting. Pt denies fevers or chills. ROS: A 12pt ROS was negative except as above Objective - Vital Signs/Intake and Output Vital Signs (last 24 hours): Temp Pulse Resp BP Pulse Ox 98.5 F 78 20 110/61 96 04/01/17 07:40 04/01/17 07:40 04/01/17 07:40 04/01/17 07:40 04/01/17 07:40 Intake and Output: 04/01/17 04/01/17 06:59 18:59 Intake Total 1040 1220 Balance 1040 1220 - Medications Medications: Current Medications Acetaminophen (Tylenol 325mg Tab) 650 mg PO Q6 PRN PRN Reason: Fever >100.4 F Clopidogrel Bisulfate (Plavix) 75 mg PO DAILY [facility] Last Admin: 04/01/17 11:58 Dose: Not Given Heparin Sodium (Porcine) (Heparin) 5,000 units SC Q12 [facility] Last Admin: 04/01/17 11:58 Dose: Not Given Home Med (Dextromethorphan Hbr/Quinidine [Nuedexta 20-10 Mg Capsule]) 1 tab PO BID [facility] Piperacillin Sod/Tazobactam Sod (Zosyn 2.25 Gm Iv Premix) 2.25 gm in 50 mls @ 100 mls/hr IVPB Q6H [facility] Last Admin: 04/01/17 08:52 Dose: 100 mls/hr Insulin Human Regular (Novolin R) 0 unit SC ACHS [facility] PRN Reason: Protocol Last Admin: 04/01/17 11:59 Dose: Not Given Ketorolac Tromethamine (Toradol) 15 mg IVP Q6 PRN PRN Reason: Pain, moderate (4-7) Last Admin: 03/30/17 23:08 Dose: 15 mg Lactobacillus Acidophilus (Bacid Acidophilus) 1 cap PO BID [facility] Last Admin: 04/01/17 10:50 Dose: 1 cap Morphine Sulfate (Morphine) 1 mg IVP Q4H PRN PRN Reason: Pain, severe (8-10) Nebivolol (Bystolic) 2.5 mg PO DAILY [facility] Last Admin: 04/01/17 10:50 Dose: 2.5 mg Nifedipine (Procardia Xl) 90 mg PO DAILY [facility] Last Admin: 04/01/17 10:50 Dose: 90 mg Ondansetron HCl (Zofran Inj) 4 mg IVP Q6H PRN PRN Reason: Nausea/Vomiting Pantoprazole Sodium (Protonix Inj) 40 mg IVP DAILY [facility] Last Admin: 03/31/17 09:11 Dose: 40 mg Topiramate (Topamax) 50 mg PO BID [facility] Last Admin: 04/01/17 10:50 Dose: 50 mg - Labs Labs: 04/01/17 08:34 04/01/17 08:34 PT 15.8 SECONDS (9.7-12.2) H 04/01/17 08:34 INR 1.4 04/01/17 08:34 - Constitutional Appears: Non-toxic, No Acute Distress - Head Exam Head Exam: ATRAUMATIC, NORMAL INSPECTION, NORMOCEPHALIC - Eye Exam Eye Exam: EOMI, Normal appearance - ENT Exam ENT Exam: Mucous Membranes Moist - Respiratory Exam Respiratory Exam: Clear to Ausculation Bilateral, NORMAL BREATHING PATTERN - Cardiovascular Exam Cardiovascular Exam: REGULAR RHYTHM, RRR - GI/Abdominal Exam GI & Abdominal Exam: Soft, Normal Bowel Sounds. absent: Distended, Guarding, Tenderness - Extremities Exam Extremities Exam: Full ROM, Normal Inspection - Back Exam Back Exam: NORMAL INSPECTION - Neurological Exam Neurological Exam: Alert, Awake, Oriented x3 - Psychiatric Exam Psychiatric exam: Normal Affect, Normal Mood - Skin Skin Exam: Dry, Intact, Normal Color, Warm Assessment and Plan - Assessment and Plan (Free Text) Assessment: 76 Female with PMHx HTN, DM, CKD, RA, OA presents to the ED with abdominal pain x 1 day. 1. Abdominal pain 2. Elevated LFTs 3. Choledocholethiasis Plan: -Continue supportive care with pain control and anti-emetics -Elevated LFTs, MRCP with possible choledocholithiasis s/p cholecystectomy -Plan for ERCP tomorrow -Abx per primary team -Clear liquid diet -NPO after midnight -Monitor LFTs -Hepatitis panel negative, autoimmune serologies pending, imaging with cirrhosis -Consent for ERCP and Anesthesia signed by pt's POA her son and in chart -Will continue to follow closely <Singh Naidu - Last Filed: 04/01/17 14:36> Objective - Vital Signs/Intake and Output Vital Signs (last 24 hours): Temp Pulse Resp BP Pulse Ox 98.5 F 78 20 110/61 96 04/01/17 07:40 04/01/17 07:40 04/01/17 07:40 04/01/17 07:40 04/01/17 07:40 Intake and Output: 04/01/17 04/01/17 06:59 18:59 Intake Total 1040 1220 Balance 1040 1220 - Medications Medications: Current Medications Acetaminophen (Tylenol 325mg Tab) 650 mg PO Q6 PRN PRN Reason: Fever >100.4 F Clopidogrel Bisulfate (Plavix) 75 mg PO DAILY [facility] Last Admin: 04/01/17 11:58 Dose: Not Given Heparin Sodium (Porcine) (Heparin) 5,000 units SC Q12 [facility] Last Admin: 04/01/17 11:58 Dose: Not Given Home Med (Dextromethorphan Hbr/Quinidine [Nuedexta 20-10 Mg Capsule]) 1 tab PO BID [facility] Piperacillin Sod/Tazobactam Sod (Zosyn 2.25 Gm Iv Premix) 2.25 gm in 50 mls @ 100 mls/hr IVPB Q6H [facility] Last Admin: 04/01/17 14:24 Dose: 100 mls/hr Insulin Human Regular (Novolin R) 0 unit SC ACHS [facility] PRN Reason: Protocol Last Admin: 04/01/17 11:59 Dose: Not Given Ketorolac Tromethamine (Toradol) 15 mg IVP Q6 PRN PRN Reason: Pain, moderate (4-7) Last Admin: 03/30/17 23:08 Dose: 15 mg Lactobacillus Acidophilus (Bacid Acidophilus) 1 cap PO BID [facility] Last Admin: 04/01/17 10:50 Dose: 1 cap Morphine Sulfate (Morphine) 1 mg IVP Q4H PRN PRN Reason: Pain, severe (8-10) Nebivolol (Bystolic) 2.5 mg PO DAILY [facility] Last Admin: 04/01/17 10:50 Dose: 2.5 mg Nifedipine (Procardia Xl) 90 mg PO DAILY [facility] Last Admin: 04/01/17 10:50 Dose: 90 mg Ondansetron HCl (Zofran Inj) 4 mg IVP Q6H PRN PRN Reason: Nausea/Vomiting Pantoprazole Sodium (Protonix Inj) 40 mg IVP DAILY [facility] Last Admin: 03/31/17 09:11 Dose: 40 mg Topiramate (Topamax) 50 mg PO BID [facility] Last Admin: 04/01/17 10:50 Dose: 50 mg - Labs Labs: 04/01/17 08:34 04/01/17 08:34 PT 15.8 SECONDS (9.7-12.2) H 04/01/17 08:34 INR 1.4 04/01/17 08:34 Attending/Attestation - Attestation I have personally seen and examined this patient.: Yes I have fully participated in the care of the patient.: Yes I have reviewed all pertinent clinical information, including history, physical exam and plan: Yes Notes (Text): 04/01/17 14:35 76 year old female with h/o CAD, HTN, CKD, RA, OA a/w abdominal pain and jaundice. 1 Choledocholithiasis 2. Biliary obstruction Plan: -MRI reviewed -plan for ERCP tomorrow -npo after mn -cardiology clearance -will plan to place stent tomorrow to relieve obstruction and bring patient back later for stone removal when she can be off plavix 1 week preop -continue antibiotics
--- NOTE | 2017-04-01 21:09 | CP.PCM.CON ---
History of Present Illness - History of Present Illness History of Present Illness: CC: Pre Procedural cardiac risk assessment HPI: 76 F with multiple cardiac risk factors with no known cardiac work up. Consult requested for cardiac clearance Due to her limited ambulation symptoms are not reliable CXR: Cardiomegaly Recommend ECHO and stress test prior to ERCP unless its urgent and life saving PMHx: HTN, DM, CKD, RA, OA PSHx: Cholecystectomy, Appendectomy Meds: Will need to call pharmacy - patient does not know home medications- [facility] [phone] All: Fish- rash SHx: Denied tobacco, alcohol, illicit drug use FHx: Unremarkable PMD: Dr. iMckey Suh Physical Exam - Constitutional Appears: No Acute Distress - Head Exam Head Exam: NORMAL INSPECTION, NORMOCEPHALIC - Eye Exam Eye Exam: EOMI, Normal appearance, PERRL Pupil Exam: NORMAL ACCOMODATION - ENT Exam ENT Exam: Mucous Membranes Moist, Normal Exam - Respiratory Exam Respiratory Exam: Clear to Auscultation Bilateral, NORMAL BREATHING PATTERN. absent: Wheezes - Cardiovascular Exam Cardiovascular Exam: REGULAR RHYTHM - GI/Abdominal Exam GI & Abdominal Exam: Normal Bowel Sounds, Soft, Tenderness (RLQ, LLQ ). absent : Distended - Extremities Exam Extremities exam: Positive for: normal inspection, pedal pulses present. Negative for: pedal edema, tenderness - Neurological Exam Neurological exam: Alert, CN II-XII Intact, Oriented x3 - Psychiatric Exam Psychiatric exam: Normal Affect, Normal Mood - Skin Skin Exam: Dry, Intact, Normal Color, Warm Past Patient History - Infectious Disease Hx of Infectious Diseases: None - Past Medical History & Family History Past Medical History?: Yes - Past Social History Smoking Status: Never Smoked - CARDIAC Hx Cardiac Disorders: Yes (CAD, Coronary Stent) Hx Hypercholesterolemia: Yes Hx Hypertension: Yes - PULMONARY Hx Respiratory Disorders: No - NEUROLOGICAL Hx Migraine: Yes - HEENT Hx HEENT Problems: No - RENAL Hx Chronic Kidney Disease: No - ENDOCRINE/METABOLIC Hx Diabetes Mellitus Type 2: Yes - HEMATOLOGICAL/ONCOLOGICAL Hx Blood Transfusions: No Hx Blood Transfusion Reaction: No - INTEGUMENTARY Hx Dermatological Problems: No - MUSCULOSKELETAL/RHEUMATOLOGICAL Hx Arthritis: Yes - GASTROINTESTINAL Hx Gastrointestinal Disorders: No - GENITOURINARY/GYNECOLOGICAL Hx Genitourinary Disorders: No - PSYCHIATRIC Hx Substance Use: No - SURGICAL HISTORY Hx Appendectomy: Yes Hx Cholecystectomy: Yes Hx Coronary Stent: Yes (X4) - ANESTHESIA Hx Anesthesia: Yes Hx Anesthesia Reactions: Yes Hx Malignant Hyperthermia: No Meds Allergies/Adverse Reactions: Allergies Allergy/AdvReac Type Severity Reaction Status Date / Time ciprofloxacin [From Cipro] Allergy ANAPHYLAXIS Verified 03/30/17 12:01 ciprofloxacin HCl Allergy ANAPHYLAXIS Verified 03/30/17 12:01 [From Cipro] seafood Allergy ANAPHYLAXIS Uncoded 03/30/17 12:01 - Medications Medications: Current Medications Acetaminophen (Tylenol 325mg Tab) 650 mg PO Q6 PRN PRN Reason: Fever >100.4 F Clopidogrel Bisulfate (Plavix) 75 mg PO DAILY [facility] Last Admin: 04/01/17 11:58 Dose: Not Given Heparin Sodium (Porcine) (Heparin) 5,000 units SC Q12 [facility] Last Admin: 04/01/17 11:58 Dose: Not Given Home Med (Dextromethorphan Hbr/Quinidine [Nuedexta 20-10 Mg Capsule]) 1 tab PO BID [facility] Piperacillin Sod/Tazobactam Sod (Zosyn 2.25 Gm Iv Premix) 2.25 gm in 50 mls @ 100 mls/hr IVPB Q6H [facility] Last Admin: 04/01/17 14:24 Dose: 100 mls/hr Insulin Human Regular (Novolin R) 0 unit SC ACHS [facility] PRN Reason: Protocol Last Admin: 04/01/17 16:30 Dose: Not Given Ketorolac Tromethamine (Toradol) 15 mg IVP Q6 PRN PRN Reason: Pain, moderate (4-7) Last Admin: 03/30/17 23:08 Dose: 15 mg Lactobacillus Acidophilus (Bacid Acidophilus) 1 cap PO BID [facility] Last Admin: 04/01/17 18:01 Dose: 1 cap Morphine Sulfate (Morphine) 1 mg IVP Q4H PRN PRN Reason: Pain, severe (8-10) Nebivolol (Bystolic) 2.5 mg PO DAILY [facility] Last Admin: 04/01/17 10:50 Dose: 2.5 mg Nifedipine (Procardia Xl) 90 mg PO DAILY [facility] Last Admin: 04/01/17 10:50 Dose: 90 mg Ondansetron HCl (Zofran Inj) 4 mg IVP Q6H PRN PRN Reason: Nausea/Vomiting Pantoprazole Sodium (Protonix Inj) 40 mg IVP DAILY [facility] Last Admin: 03/31/17 09:11 Dose: 40 mg Topiramate (Topamax) 50 mg PO BID [facility] Last Admin: 04/01/17 18:01 Dose: 50 mg Results - Vital Signs Recent Vital Signs: Last Vital Signs Temp 98.2 F 04/01/17 15:15 Pulse 61 04/01/17 15:15 Resp 20 04/01/17 15:15 BP 105/61 04/01/17 15:15 Pulse Ox 96 04/01/17 15:15 - Labs Result Diagrams: 04/01/17 08:34 04/01/17 08:34 Labs: Laboratory Results - last 24 hr 03/31/17 04/01/17 04/01/17 20:53 07:04 08:34 WBC RBC Hgb Hct MCV MCH MCHC RDW Plt Count MPV Neut % (Auto) Lymph % (Auto) [place] % (Auto) Eos % (Auto) Baso % (Auto) Neut # (Auto) Lymph # (Auto) [place] # (Auto) Eos # (Auto) Baso # (Auto) PT INR Sodium Potassium Chloride Carbon Dioxide Anion Gap BUN Creatinine Est GFR ( Amer) Est GFR (Non-Af Amer) POC Glucose (mg/dL) 150 H 152 H Random Glucose Calcium Phosphorus Magnesium Iron 44 TIBC 218 L % Saturation 20 Ferritin Total Bilirubin AST ALT Alkaline Phosphatase Total Protein Albumin Globulin Albumin/Globulin Ratio Hepatitis A IgM Ab Hep Bs Antigen Hep B Core IgM Ab Hepatitis C Antibody Blood Type Antibody Screen 04/01/17 04/01/17 04/01/17 08:34 08:34 08:34 WBC 4.7 L RBC 2.82 L Hgb 8.8 L Hct 26.1 L MCV 92.4 MCH 31.4 H MCHC 33.9 RDW 14.8 H Plt Count 146 MPV 10.6 Neut % (Auto) 67.9 Lymph % (Auto) 23.4 [place] % (Auto) 5.4 Eos % (Auto) 2.8 Baso % (Auto) 0.5 Neut # (Auto) 3.2 Lymph # (Auto) 1.1 [place] # (Auto) 0.3 Eos # (Auto) 0.1 Baso # (Auto) 0.0 PT 15.8 H INR 1.4 Sodium 137 Potassium 3.6 Chloride 116 H Carbon Dioxide 13 L Anion Gap 12 BUN 20 H Creatinine 2.5 H Est GFR ( Amer) 23 Est GFR (Non-Af Amer) 19 POC Glucose (mg/dL) Random Glucose 141 H Calcium 7.9 L Phosphorus 2.5 Magnesium 2.1 Iron TIBC % Saturation Ferritin 105.0 Total Bilirubin 4.1 H AST 71 H D ALT 119 H D Alkaline Phosphatase 560 H Total Protein 6.5 Albumin 2.7 L Globulin 3.8 Albumin/Globulin Ratio 0.7 L Hepatitis A IgM Ab Hep Bs Antigen Hep B Core IgM Ab Hepatitis C Antibody Blood Type Antibody Screen 04/01/17 04/01/17 04/01/17 08:34 11:17 13:37 WBC RBC Hgb Hct MCV MCH MCHC RDW Plt Count MPV Neut % (Auto) Lymph % (Auto) [place] % (Auto) Eos % (Auto) Baso % (Auto) Neut # (Auto) Lymph # (Auto) [place] # (Auto) Eos # (Auto) Baso # (Auto) PT INR Sodium Potassium Chloride Carbon Dioxide Anion Gap BUN Creatinine Est GFR ( Amer) Est GFR (Non-Af Amer) POC Glucose (mg/dL) 152 H Random Glucose Calcium Phosphorus Magnesium Iron TIBC % Saturation Ferritin Total Bilirubin AST ALT Alkaline Phosphatase Total Protein Albumin Globulin Albumin/Globulin Ratio Hepatitis A IgM Ab Negative Hep Bs Antigen Negative Hep B Core IgM Ab Negative Hepatitis C Antibody Negative Blood Type O POSITIVE Antibody Screen Negative Assessment & Plan - Assessment and Plan (Free Text) Assessment: 76 F with multiple cardiac risk factors with no known cardiac work up. Consult requested for cardiac clearance Due to her limited ambulation symptoms are not reliable CXR: Cardiomegaly Recommend ECHO and stress test prior to ERCP unless its urgent and life saving Patient scheduled for stress test and ECHO in am
[2017-04-02] MEDS: Piperacill/Tazo 2.25gm in Dex 2.25 GM/50 ML BAG IVPB SCH ×4 (01:25→20:25)
[2017-04-02 07:46] LABS: ALB/GLOB RATIO 0.7 (1.0-2.1); ALBUMIN 2.8 g/dL (3.5-5.0); CALCIUM 8.3 mg/dl (8.6-10.4); MAGNESIUM 2.3 mg/dL (1.6-2.3)
[2017-04-02 07:47] LABS: BASO % 0.8 % (0.0-2.0); EOS # 0.1 K/uL (0.0-0.7); EOS % 3.3 % (0.0-4.0); HEMOGLOBIN 8.6 g/dL (11.0-16.0); LYMPH # 1.2 K/uL (1.0-4.3); LYMPH % 34.4 % (20.0-40.0); MEAN CELL VOLUME 91.4 fL (81.0-99.0); MEAN CORPUSCULAR HEMOGLOBIN 30.8 pg (27.0-31.0); MEAN CORPUSCULAR HGB CONC 33.7 g/dL (33.0-37.0); MONO # 0.2 K/uL (0.0-0.8); MONO % 5.5 % (0.0-10.0); NRBC % 0.1 % (0.0-2.0); RBC 2.78 Mil/uL (3.80-5.20); RED CELL DISTRIBUTION WIDTH 14.9 % (11.5-14.5); WHITE BLOOD COUNT 3.5 K/uL (4.8-10.8)
[2017-04-02] MEDS: (Novolin R) Insulin Human Regular 100 units/ml vial SC SCH ×4 (08:10→22:21)
[2017-04-02] MEDS ORDERED: Aminophylline 25 mg/ml Inj ONE (08:19)
--- NOTE | 2017-04-02 08:31 | CP.PCM.PN ---
<Jer Tirado - Last Filed: 04/02/17 10:56> Subjective - Date & Time of Evaluation Date of Evaluation: 04/02/17 Time of Evaluation: 07:15 - Subjective Subjective: PGY5 GI Fellow Progress Note Patient seen and examined bedside this morning. The patient states she is feeling well and no longer has constant abdominal pain. Has intermittent pain from RUQ to back. No nausea, vomiting, diarrhea noted. Was made NPO for possible ERCP today but this has been held as patient did not obtain cardiology clearance. Of note, patient states she had ERCP performed in or 01/2016 at [facility] [place], unknown results/findings. 12 system ROS performed and negative except where stated. Objective - Vital Signs/Intake and Output Vital Signs (last 24 hours): Temp Pulse Resp BP Pulse Ox 98.2 F 57 L 20 114/59 L 96 04/02/17 00:00 04/02/17 00:00 04/02/17 00:00 04/02/17 00:00 04/02/17 00:00 Intake and Output: 04/02/17 04/02/17 06:59 18:59 Intake Total 300 Balance 300 - Medications Medications: Current Medications Acetaminophen (Tylenol 325mg Tab) 650 mg PO Q6 PRN PRN Reason: Fever >100.4 F Clopidogrel Bisulfate (Plavix) 75 mg PO DAILY [facility] Last Admin: 04/01/17 11:58 Dose: Not Given Heparin Sodium (Porcine) (Heparin) 5,000 units SC Q12 [facility] Last Admin: 04/01/17 11:58 Dose: Not Given Home Med (Dextromethorphan Hbr/Quinidine [Nuedexta 20-10 Mg Capsule]) 1 tab PO BID [facility] Piperacillin Sod/Tazobactam Sod (Zosyn 2.25 Gm Iv Premix) 2.25 gm in 50 mls @ 100 mls/hr IVPB Q6H [facility] Last Admin: 04/02/17 01:25 Dose: 100 mls/hr Insulin Human Regular (Novolin R) 0 unit SC ACHS [facility] PRN Reason: Protocol Last Admin: 04/02/17 08:10 Dose: Not Given Ketorolac Tromethamine (Toradol) 15 mg IVP Q6 PRN PRN Reason: Pain, moderate (4-7) Last Admin: 03/30/17 23:08 Dose: 15 mg Lactobacillus Acidophilus (Bacid Acidophilus) 1 cap PO BID [facility] Last Admin: 04/01/17 18:01 Dose: 1 cap Morphine Sulfate (Morphine) 1 mg IVP Q4H PRN PRN Reason: Pain, severe (8-10) Nebivolol (Bystolic) 2.5 mg PO DAILY [facility] Last Admin: 04/01/17 10:50 Dose: 2.5 mg Nifedipine (Procardia Xl) 90 mg PO DAILY [facility] Last Admin: 04/01/17 10:50 Dose: 90 mg Ondansetron HCl (Zofran Inj) 4 mg IVP Q6H PRN PRN Reason: Nausea/Vomiting Pantoprazole Sodium (Protonix Inj) 40 mg IVP DAILY [facility] Last Admin: 03/31/17 09:11 Dose: 40 mg Topiramate (Topamax) 50 mg PO BID [facility] Last Admin: 04/01/17 18:01 Dose: 50 mg - Labs Labs: 04/02/17 07:10 04/02/17 07:10 PT 15.8 SECONDS (9.7-12.2) H 04/01/17 08:34 INR 1.4 04/01/17 08:34 - Constitutional Appears: Non-toxic, No Acute Distress - Eye Exam Eye Exam: EOMI, PERRL - ENT Exam ENT Exam: Mucous Membranes Moist - Respiratory Exam Respiratory Exam: Clear to Ausculation Bilateral. absent: Rales, Rhonchi, Wheezes - Cardiovascular Exam Cardiovascular Exam: RRR, +S1, +S2 - GI/Abdominal Exam GI & Abdominal Exam: Soft, Normal Bowel Sounds. absent: Distended, Firm, Guarding, Rigid, Tenderness, Organomegaly - Extremities Exam Extremities Exam: Normal Inspection. absent: Pedal Edema - Neurological Exam Neurological Exam: Alert, Awake, Oriented x3 - Psychiatric Exam Psychiatric exam: Normal Affect, Normal Mood - Skin Skin Exam: Dry, Warm Assessment and Plan - Assessment and Plan (Free Text) Assessment: Patient is a 76yo female with PMHx significant for CAD (on plavix), HTN, CKD, osteoporosis who presented with abdominal pain and jaundice. -Choledocolithiasis/biliary obstruction at distal CBD -Hyperbilirubinemia 2/2 above Plan: -Abdominal pain resolved -ERCP cancelled as patient needs clearance from cardiology - pending echo and stress test -Will attempt to contact [facility] to obtain history/results of prior examination -Tentatively planned for ERCP on Sunday -Continue Zosyn -Liquid diet as tolerated, can advance to low fat diet if OK with cardiology <Tristin Bills - Last Filed: 04/02/17 17:14> Objective - Vital Signs/Intake and Output Vital Signs (last 24 hours): Temp Pulse Resp BP Pulse Ox 97.5 F L 52 L 20 118/65 100 04/02/17 15:00 04/02/17 15:00 04/02/17 15:00 04/02/17 15:00 04/02/17 15:00 Intake and Output: 04/02/17 04/02/17 06:59 18:59 Intake Total 300 350 Balance 300 350 - Medications Medications: Current Medications Acetaminophen (Tylenol 325mg Tab) 650 mg PO Q6 PRN PRN Reason: Fever >100.4 F Clopidogrel Bisulfate (Plavix) 75 mg PO DAILY [facility] Last Admin: 04/01/17 11:58 Dose: Not Given Heparin Sodium (Porcine) (Heparin) 5,000 units SC Q12 [facility] Last Admin: 04/02/17 10:00 Dose: Not Given Home Med (Dextromethorphan Hbr/Quinidine [Nuedexta 20-10 Mg Capsule]) 1 tab PO BID [facility] Piperacillin Sod/Tazobactam Sod (Zosyn 2.25 Gm Iv Premix) 2.25 gm in 50 mls @ 100 mls/hr IVPB Q6H [facility] Last Admin: 04/02/17 13:05 Dose: 100 mls/hr Insulin Human Regular (Novolin R) 0 unit SC ACHS [facility] PRN Reason: Protocol Last Admin: 04/02/17 16:53 Dose: Not Given Ketorolac Tromethamine (Toradol) 15 mg IVP Q6 PRN PRN Reason: Pain, moderate (4-7) Last Admin: 03/30/17 23:08 Dose: 15 mg Lactobacillus Acidophilus (Bacid Acidophilus) 1 cap PO BID [facility] Last Admin: 04/02/17 13:06 Dose: 1 cap Morphine Sulfate (Morphine) 1 mg IVP Q4H PRN PRN Reason: Pain, severe (8-10) Nebivolol (Bystolic) 2.5 mg PO DAILY [facility] Last Admin: 04/02/17 13:13 Dose: 2.5 mg Nifedipine (Procardia Xl) 90 mg PO DAILY [facility] Last Admin: 04/02/17 13:05 Dose: 90 mg Ondansetron HCl (Zofran Inj) 4 mg IVP Q6H PRN PRN Reason: Nausea/Vomiting Pantoprazole Sodium (Protonix Inj) 40 mg IVP DAILY [facility] Last Admin: 03/31/17 09:11 Dose: 40 mg Topiramate (Topamax) 50 mg PO BID [facility] Last Admin: 04/02/17 13:06 Dose: 50 mg - Labs Labs: 04/02/17 07:10 04/02/17 07:10 PT 15.8 SECONDS (9.7-12.2) H 04/01/17 08:34 INR 1.4 04/01/17 08:34 Attending/Attestation - Attestation I have personally seen and examined this patient.: Yes I have fully participated in the care of the patient.: Yes I have reviewed all pertinent clinical information, including history, physical exam and plan: Yes Notes (Text): 04/02/17 17:13 Patient seen at bedside. This is a 76 yo female with PMHx significant for CAD ( on plavix), HTN, CKD, osteoporosis who presented with abdominal pain and jaundice in setting of choledocolithiasis/biliary obstruction at distal CBD. ERCP will be scheduled after cardiology consult. Continue Zosyn Liquid diet as tolerated, can advance to low fat diet if OK with cardiology
--- NOTE | 2017-04-02 12:48 | CARD ---
APPROVED REPORT EKG Measurement Heart [id number] <Conclusion> Sinus bradycardia Otherwise normal ECG
[2017-04-02] MEDS: NIFEdipine 90 mg ER Tab PO SCH (13:05)
[2017-04-02] MEDS: Lactobacillus Acidophilus 500 MU Cap PO SCH ×2 (13:06→17:58)
--- NOTE | 2017-04-02 13:54 | CP.PCM.PN ---
<Angela Echeverriaa - Last Filed: 04/02/17 13:51> Subjective - Date & Time of Evaluation Date of Evaluation: 04/02/17 Time of Evaluation: 09:00 - Subjective Subjective: Medicine Note for Hospitalist Service- Dr. Zapata Patient was seen and examined at bedside. No acute complaints. Patient is being brought down for nuclear stress test. Denied fever, chills, chest pain, abdominal pain, n/v/d/c, or urinary symptoms. Objective - Vital Signs/Intake and Output Vital Signs (last 24 hours): Temp Pulse Resp BP Pulse Ox 98.6 F 50 L 18 115/49 L 97 04/02/17 07:25 04/02/17 07:25 04/02/17 07:25 04/02/17 07:25 04/02/17 07:25 Intake and Output: 04/02/17 04/02/17 06:59 18:59 Intake Total 300 Balance 300 - Medications Medications: Current Medications Acetaminophen (Tylenol 325mg Tab) 650 mg PO Q6 PRN PRN Reason: Fever >100.4 F Clopidogrel Bisulfate (Plavix) 75 mg PO DAILY [facility] Last Admin: 04/01/17 11:58 Dose: Not Given Heparin Sodium (Porcine) (Heparin) 5,000 units SC Q12 [facility] Last Admin: 04/02/17 10:00 Dose: Not Given Home Med (Dextromethorphan Hbr/Quinidine [Nuedexta 20-10 Mg Capsule]) 1 tab PO BID [facility] Piperacillin Sod/Tazobactam Sod (Zosyn 2.25 Gm Iv Premix) 2.25 gm in 50 mls @ 100 mls/hr IVPB Q6H [facility] Last Admin: 04/02/17 13:05 Dose: 100 mls/hr Insulin Human Regular (Novolin R) 0 unit SC ACHS [facility] PRN Reason: Protocol Last Admin: 04/02/17 11:30 Dose: Not Given Ketorolac Tromethamine (Toradol) 15 mg IVP Q6 PRN PRN Reason: Pain, moderate (4-7) Last Admin: 03/30/17 23:08 Dose: 15 mg Lactobacillus Acidophilus (Bacid Acidophilus) 1 cap PO BID [facility] Last Admin: 04/02/17 13:06 Dose: 1 cap Morphine Sulfate (Morphine) 1 mg IVP Q4H PRN PRN Reason: Pain, severe (8-10) Nebivolol (Bystolic) 2.5 mg PO DAILY [facility] Last Admin: 04/02/17 13:13 Dose: 2.5 mg Nifedipine (Procardia Xl) 90 mg PO DAILY [facility] Last Admin: 04/02/17 13:05 Dose: 90 mg Ondansetron HCl (Zofran Inj) 4 mg IVP Q6H PRN PRN Reason: Nausea/Vomiting Pantoprazole Sodium (Protonix Inj) 40 mg IVP DAILY [facility] Last Admin: 03/31/17 09:11 Dose: 40 mg Topiramate (Topamax) 50 mg PO BID [facility] Last Admin: 04/02/17 13:06 Dose: 50 mg - Labs Labs: 04/02/17 07:10 04/02/17 07:10 PT 15.8 SECONDS (9.7-12.2) H 04/01/17 08:34 INR 1.4 04/01/17 08:34 - Additional Findings Additional findings: - Constitutional Appears: Non-toxic, No Acute Distress - Eye Exam Eye Exam: EOMI, PERRL - ENT Exam ENT Exam: Mucous Membranes Moist - Respiratory Exam Respiratory Exam: Clear to Ausculation Bilateral. absent: Rales, Rhonchi, Wheezes - Cardiovascular Exam Cardiovascular Exam: RRR, +S1, +S2 - GI/Abdominal Exam GI & Abdominal Exam: Soft, Normal Bowel Sounds. absent: Distended, Firm, Guarding, Rigid, Tenderness, Organomegaly - Extremities Exam Extremities Exam: Normal Inspection. absent: Pedal Edema - Neurological Exam Neurological Exam: Alert, Awake, Oriented x3 - Psychiatric Exam Psychiatric exam: Normal Affect, Normal Mood - Skin Skin Exam: Dry, Warm Assessment and Plan - Assessment and Plan (Free Text) Plan: Choledocolithiasis/biliary obstruction at distal CBD Hyperbilirubinemia Transaminitis * GI consulted - Dr. Naidu- help appreciated * AST/ALT: 307/290, Alk phos 866, T Bili: 2.6 * Hepatitis panel - negative * Normal findings on 03/30 CT scan regarding liver * 03/31 MRCP showed moderately to markedly dilated proximal common bile duct with large filling defect noted in the distal common bile duct, which could represent multiple choledocholithiasis (differential consideration includes less likely distal CBD neoplasm or stricture). Also noted [id number] intrahepatic biliary ductal dilatation, cirrhosis with findings suggestive of portal hypertension including splenomegaly and trace ascites, and 6.3 millimeter cyst at the pancreatic head. * Plan for ERCP on Sunday after cardio clearance * GI plans for ERCP to place stent, saying that stone will have to be removed at a later date because of patient being on blood thinners * Cardiology consulted - Dr. Corona- for cardio clearance and echo ordered for findings seen on CT abd/pelvis * Patient undergoing stress test today Colitis * GI consulted -Dr. Naidu- help appreciated * SIRS: Febrile, bandemia- high of 36 , lactate normal x 2 * Blood Cultures negative up to date * Stool culture: negative * Negative stool leukocytes Imaging: * CT ab/pel: Mild colitis limited to the ascending colon, small pericardial effusion and cardiomegaly * Abdominal Obstructive Xray: Cardiomegaly. Mild bibasilar atelectasis. Cholecystectomy clips. Nonspecific bowel gas pattern. Meds: * NS discontinued 04/01 since diet changed to CLD * Zosyn Q6H * Probiotics 2 hours prior to abx administration * Toradol, Morphine, Zofran PRN Anemia * Baseline hemoglobin 10 * On admission 9, slowly downtrending will continue to monitor * Retic count 1.5 * Iron 23 * TIBC 259 * % Saturation 9 * Ferritin 103 Fever * Tmax: 100.6 on 03/30/17 - afebrile to date * No leukocytosis * Rales in RLL * CXR (03/31): Pulmonary venous congestion and interval increased perihilar reticular and small nodular opacities since the previous exam * stopped fluids on 04/01 and started CLD * ID consulted, Dr. Owens, help appreciated CKD, Stage 4 * Not on dialysis * Baseline creatine 1-1.5 * On admission 2.2 HTN * Bystolic and nifedipine XL continued (home meds) * Lipid panel noted: Tri, Chol: 186, LDL: 97, HDL: 37 T2DM * Accuchecks * A1C- 5.1 * ISS- low * CLD Prophylactic Measures * GI PPX: Protonix 40mg PO daily * DVT PPX: SCDs, VTE c/i due to symptomatic anemia DW Dr. Zapata, Melonie Echeverria DO, PGY-1 <Brad Zapata - Last Filed: 04/02/17 14:24> Objective - Vital Signs/Intake and Output Vital Signs (last 24 hours): Temp Pulse Resp BP Pulse Ox 98.6 F 50 L 18 115/49 L 97 04/02/17 07:25 04/02/17 07:25 04/02/17 07:25 04/02/17 07:25 04/02/17 07:25 Intake and Output: 04/02/17 04/02/17 06:59 18:59 Intake Total 300 Balance 300 - Medications Medications: Current Medications Acetaminophen (Tylenol 325mg Tab) 650 mg PO Q6 PRN PRN Reason: Fever >100.4 F Clopidogrel Bisulfate (Plavix) 75 mg PO DAILY [facility] Last Admin: 04/01/17 11:58 Dose: Not Given Heparin Sodium (Porcine) (Heparin) 5,000 units SC Q12 [facility] Last Admin: 04/02/17 10:00 Dose: Not Given Home Med (Dextromethorphan Hbr/Quinidine [Nuedexta 20-10 Mg Capsule]) 1 tab PO BID [facility] Piperacillin Sod/Tazobactam Sod (Zosyn 2.25 Gm Iv Premix) 2.25 gm in 50 mls @ 100 mls/hr IVPB Q6H [facility] Last Admin: 04/02/17 13:05 Dose: 100 mls/hr Insulin Human Regular (Novolin R) 0 unit SC ACHS [facility] PRN Reason: Protocol Last Admin: 04/02/17 11:30 Dose: Not Given Ketorolac Tromethamine (Toradol) 15 mg IVP Q6 PRN PRN Reason: Pain, moderate (4-7) Last Admin: 03/30/17 23:08 Dose: 15 mg Lactobacillus Acidophilus (Bacid Acidophilus) 1 cap PO BID [facility] Last Admin: 04/02/17 13:06 Dose: 1 cap Morphine Sulfate (Morphine) 1 mg IVP Q4H PRN PRN Reason: Pain, severe (8-10) Nebivolol (Bystolic) 2.5 mg PO DAILY [facility] Last Admin: 04/02/17 13:13 Dose: 2.5 mg Nifedipine (Procardia Xl) 90 mg PO DAILY [facility] Last Admin: 04/02/17 13:05 Dose: 90 mg Ondansetron HCl (Zofran Inj) 4 mg IVP Q6H PRN PRN Reason: Nausea/Vomiting Pantoprazole Sodium (Protonix Inj) 40 mg IVP DAILY [facility] Last Admin: 03/31/17 09:11 Dose: 40 mg Topiramate (Topamax) 50 mg PO BID [facility] Last Admin: 04/02/17 13:06 Dose: 50 mg - Labs Labs: 04/02/17 07:10 04/02/17 07:10 PT 15.8 SECONDS (9.7-12.2) H 04/01/17 08:34 INR 1.4 04/01/17 08:34 Attending/Attestation - Attestation I have personally seen and examined this patient.: Yes I have fully participated in the care of the patient.: Yes I have reviewed all pertinent clinical information, including history, physical exam and plan: Yes Notes (Text): 04/02/17 14:24 Medical attending: Patient was seen and examined by me, I saw the patient together with the medical education manager and agree with the above note by the resident. The patient underwent a nuclear stress test as well as a 2-D echo today for cardiac evaluation prior to undergoing ERCP So at this time were pending the results of the stress test and echo. Thank you very much, Brad Zapata
--- NOTE | 2017-04-02 18:28 | CARD ---
APPROVED REPORT EXAM: Two-dimensional and M-mode echocardiogram with Doppler and color Doppler. Other Information Quality : GoodRhythm : INDICATION Pericardial Effusion Chest Pain Congestive Heart Failure RISK FACTORS Hypertension Diabetes 2D DIMENSIONS IVSd1.4 (0.7-1.1cm)LVDd5.7 (3.9-5.9cm) PWd1.1 (0.7-1.1cm)LVDs4.3 (2.5-4.0cm) FS (%) 24.8 %LVEF (%)60.0 (>50%) M-Mode DIMENSIONS RVDd1.84 (2.1-3.2cm)Left Atrium (MM)5.16 (2.5-4.0cm) IVSd1.11 (0.7-1.1cm)Aortic Root2.48 (2.2-3.7cm) LVDd5.97 (4.0-5.6cm)Aortic Cusp Exc.1.75 (1.5-2.0cm) PWd1.18 (0.7-1.1cm)FS (%) 26 % LVDs4.41 (2.0-3.8cm) Mitral Valve MV E Zjvmtwco646.3cm/sMV A Dtwtukxs21.7cm/sE/A ratio2.4 TDI E/Lateral E'0.0E/Medial E'0.0 Tricuspid Valve TR Peak Wscmbwlv008wc/sTR Peak Gr.[id number] LEFT VENTRICLE The Left Ventricle is mildly dilated. There is mild concentric left ventricular hypertrophy. The left ventricular systolic function is normal. Biplane left ventricular ejection fraction is within the normal range calculated - 55 -62% There is normal LV segmental wall motion. Transmitral Doppler flow pattern is Grade II-pseudonormal filling dynamics. Elevated left atrial pressure. RIGHT VENTRICLE The right ventricle is normal size. The right ventricular systolic function is normal. ATRIA The left atrium is moderately dilated. The right atrium is moderately dilated. AORTIC VALVE The aortic valve is normal in structure. No aortic regurgitation is present. MITRAL VALVE The mitral valve is normal in structure. Mitral regurgitation is mild. TRICUSPID VALVE The tricuspid valve is normal in structure. There is moderate tricuspid regurgitation. Right ventricular systolic pressure is estimated at - 45 mmHg. There is moderate pulmonary hypertension. PULMONIC VALVE The pulmonic valve is not well visualized. There is trace to mild pulmonic valvular regurgitation. GREAT VESSELS The aortic root is normal in size. The IVC is normal in size and collapses >50% with inspiration. PERICARDIAL EFFUSION There is a trace pericardial effusion. <Conclusion> There is mild concentric left ventricular hypertrophy. The left ventricular systolic function is normal. Biplane left ventricular ejection fraction is within the normal range calculated - 55 -62% Moderate diastolic dysfunction. Grade II-pseudonormal filling dynamics. Elevated left atrial pressure. The right ventricular systolic function is normal. Mild mitral regurgitation. There is moderate tricuspid regurgitation. Right ventricular systolic pressure is estimated at - 45 mmHg compatible with moderate pulmonary hypertension. There is a trace pericardial effusion.
--- NOTE | 2017-04-02 22:54 | CP.PCM.PN ---
Subjective - Date & Time of Evaluation Date of Evaluation: 04/02/17 Time of Evaluation: 19:50 - Subjective Subjective: Patient seen and evaluated ECHO: Normal LV function Stress test: Normal Cardiac point of cleared for GI procedures (ERCP) cardiac Risk: Low to Intermediate Objective - Vital Signs/Intake and Output Vital Signs (last 24 hours): Temp Pulse Resp BP Pulse Ox 97.5 F L 52 L 20 118/65 100 04/02/17 15:00 04/02/17 15:00 04/02/17 15:00 04/02/17 15:00 04/02/17 15:00 Intake and Output: 04/02/17 04/03/17 18:59 06:59 Intake Total 350 Balance 350 - Medications Medications: Current Medications Acetaminophen (Tylenol 325mg Tab) 650 mg PO Q6 PRN PRN Reason: Fever >100.4 F Clopidogrel Bisulfate (Plavix) 75 mg PO DAILY [facility] Last Admin: 04/01/17 11:58 Dose: Not Given Heparin Sodium (Porcine) (Heparin) 5,000 units SC Q12 [facility] Last Admin: 04/02/17 22:21 Dose: Not Given Home Med (Dextromethorphan Hbr/Quinidine [Nuedexta 20-10 Mg Capsule]) 1 tab PO BID [facility] Piperacillin Sod/Tazobactam Sod (Zosyn 2.25 Gm Iv Premix) 2.25 gm in 50 mls @ 100 mls/hr IVPB Q6H [facility] Last Admin: 04/02/17 20:25 Dose: 100 mls/hr Insulin Human Regular (Novolin R) 0 unit SC ACHS [facility] PRN Reason: Protocol Last Admin: 04/02/17 22:21 Dose: Not Given Ketorolac Tromethamine (Toradol) 15 mg IVP Q6 PRN PRN Reason: Pain, moderate (4-7) Last Admin: 04/02/17 20:26 Dose: 15 mg Lactobacillus Acidophilus (Bacid Acidophilus) 1 cap PO BID [facility] Last Admin: 04/02/17 17:58 Dose: 1 cap Morphine Sulfate (Morphine) 1 mg IVP Q4H PRN PRN Reason: Pain, severe (8-10) Nebivolol (Bystolic) 2.5 mg PO DAILY [facility] Last Admin: 04/02/17 13:13 Dose: 2.5 mg Nifedipine (Procardia Xl) 90 mg PO DAILY [facility] Last Admin: 04/02/17 13:05 Dose: 90 mg Ondansetron HCl (Zofran Inj) 4 mg IVP Q6H PRN PRN Reason: Nausea/Vomiting Pantoprazole Sodium (Protonix Inj) 40 mg IVP DAILY [facility] Last Admin: 03/31/17 09:11 Dose: 40 mg Topiramate (Topamax) 50 mg PO BID [facility] Last Admin: 04/02/17 17:58 Dose: 50 mg - Labs Labs: 04/02/17 07:10 04/02/17 07:10 PT 15.8 SECONDS (9.7-12.2) H 04/01/17 08:34 INR 1.4 04/01/17 08:34
--- NOTE | 2017-04-03 00:46 | CARD ---
APPROVED REPORT Protocol: LEXISCAN Test Type: LEXISCAN STRESS Test Indications: PRE OP Target HR: 144 bpm Resting ECG: normal Resting Heart Rate: 56 bpm Resting Blood Pressure: 128/80mmHg submaximum (85%): 122 bpm TEST SUMMARY [id number]:02..1.0./.0. PREINFSNHYPERV.06:[id number]/80.0. INFUSIONDOSE 100:[id number]/80.0. KMHHVSXOB76:[id number]/80.0. PROCEDURE Pharmacologic stress testing was performed using 0.4mg per 5ml of regadenoson given intravenously over 7-10 seconds. Reversal agent aminophyline 100 mg, given intravenously for Headache. POST EXERCISE Reason for Termination: Protocol Completed Target HR: No Max HR: 57 bpm 47% of Maximum Predicted HR: 144 bpm Exercise duration: 00:30 min:sec, 0 Stage Exercise capacity: 1.0METs Max Blood Pressure: 128/80mmHg Blood Pressure response to exercise: normal resting BP - appropriate response Heart Rate response to exercise: appropriate Chest Pain: No, none Angina index: 0 Arrhythmia: No, none ST Change: No, none Deviation: 0 mm INTERPRETATION Stress EKG Conclusion: NEGATIVE LEXISCAN STRESS TEST NORMAL BP RESPONSE TO LEXISCAN NUCLEAR STUDIES TO BE READ SEPARATELY EXAM: Myocardial Perfusion STRESS/REST Imaging Protocol The imaging protocol used to acquire images was Stress Tc-99m/rest Tc-99m 1 day Rest Spect myocardial perfusion imaging was performed in supine position 45 minutes following the injection of 32.3 mCi of Tc-99 Myoview. Gated Stress Spect was performed 45 minutes after intravenous 12.7 mCi Tc-99 Myoview injection. The images were gated to evaluate regional wall motion and calculate ventricular ejection fraction.Images were reconstructed using backfilter projection method in short horizontal and verticle long axis. Spect slices were generated. RESTING DATA EDV94.28nqRT1.90L/min ESV20.00mlMyocardial Euae557.00g Av. Heart Rate53.00bpm EF79.00% STRESS DATA EDV99.14akKD1.10L/min ESV23.00mlMyocardial Ewaf274.00g EF77.00% Regional WT score at stress:0.00 Regional WM score at stress:0.00 Summed WT score at stress:0.00 Av. Heart Rate54.00bpmSummed WM score at stress:0.00 LV Perf. Quant 17 Seg. SSS0.00 17 Seg. SRS0.00 17 Seg. SDS0.00 Stress Defect Extent (% LAD)0.00Rest Defect Extent (% LAD)0.00Rev. Defect Extent (% LAD)0.00 Stress Defect Extent (% LCX)0.00Rest Defect Extent (% LCX)0.00Rev. Defect Extent (% LCX)0.00 Stress Defect Extent (% RCA)0.00Rest Defect Extent (% RCA)0.00Rev. Defect Extent (% RCA)0.00 Stress Defect Extent (% ТАТЬЯНА)0.00Rest Defect Extent (% ТАТЬЯНА)0.00Rev. Defect Extent (% ТАТЬЯНА)0.00 Other Information Quality:Good IMPRESSION Normal Myocardial Perfusion exercise stress study Left Ventricle LV Function:Left ventricle systolic function is normal. The Ejection Fraction is >55%. Metabolism/Perfusion There are no perfusion/metabolism defects. Conclusion 1. Normal Lexiscan nuclear stress test. Normal EF.
[2017-04-03] MEDS: Piperacill/Tazo 2.25gm in Dex 2.25 GM/50 ML BAG IVPB SCH ×4 (02:08→20:00)
[2017-04-03] MEDS: (Novolin R) Insulin Human Regular 100 units/ml vial SC SCH ×4 (07:30→22:00)
[2017-04-03 07:46] LABS: BASO % 0.8 % (0.0-2.0); EOS # 0.1 K/uL (0.0-0.7); EOS % 3.9 % (0.0-4.0); HEMOGLOBIN 8.4 g/dL (11.0-16.0); LYMPH # 1.2 K/uL (1.0-4.3); LYMPH % 44.1 % (20.0-40.0); MEAN CELL VOLUME 91.2 fL (81.0-99.0); MEAN CORPUSCULAR HGB CONC 32.9 g/dL (33.0-37.0); MEAN PLATELET VOLUME 9.6 fL (7.2-11.7); MONO # 0.2 K/uL (0.0-0.8); MONO % 6.8 % (0.0-10.0); NEUT # 1.2 K/uL (1.8-7.0); NEUT % 44.4 % (50.0-75.0); NRBC % 0.3 % (0.0-2.0); RBC 2.79 Mil/uL (3.80-5.20); RED CELL DISTRIBUTION WIDTH 15.3 % (11.5-14.5)
[2017-04-03 07:48] LABS: WHITE BLOOD COUNT 2.8 K/uL (4.8-10.8)
[2017-04-03 08:10] LABS: ALB/GLOB RATIO 0.8 (1.0-2.1); ALBUMIN 2.8 g/dL (3.5-5.0); CALCIUM 8.1 mg/dl (8.6-10.4); MAGNESIUM 2.3 mg/dL (1.6-2.3)
--- NOTE | 2017-04-03 08:45 | CP.PCM.PN ---
Addendum entered and electronically signed by Jer Tirado DO 04/03/17 08:49 : PGY5 addendum: Given c/o diarrhea and anion gap metabolic acidosis as stated below, check C diff. Remaining cultures were negative. Mild colitis was noted on initial CT A/ P. On empiric antibiotics, consider addition of Flagyl. Original Note: <Jer Tirado - Last Filed: 04/03/17 08:40> Subjective - Date & Time of Evaluation Date of Evaluation: 04/03/17 Time of Evaluation: 06:20 - Subjective Subjective: PGY5 GI Fellow Progress Note Patient seen and examined bedside this morning. The patient states that she is feeling well with only minimal discomfort in the RUQ. Tolerating liquid diet without issue. No other complaints at present. 12 system ROS performed and negative except where stated. Objective - Vital Signs/Intake and Output Vital Signs (last 24 hours): Temp Pulse Resp BP Pulse Ox 98.0 F 54 L 20 116/46 L 97 04/03/17 07:15 04/03/17 07:15 04/03/17 07:15 04/03/17 07:15 04/03/17 07:15 - Medications Medications: Current Medications Acetaminophen (Tylenol 325mg Tab) 650 mg PO Q6 PRN PRN Reason: Fever >100.4 F Clopidogrel Bisulfate (Plavix) 75 mg PO DAILY [facility] Last Admin: 04/01/17 11:58 Dose: Not Given Heparin Sodium (Porcine) (Heparin) 5,000 units SC Q12 [facility] Last Admin: 04/02/17 22:21 Dose: Not Given Home Med (Dextromethorphan Hbr/Quinidine [Nuedexta 20-10 Mg Capsule]) 1 tab PO BID [facility] Piperacillin Sod/Tazobactam Sod (Zosyn 2.25 Gm Iv Premix) 2.25 gm in 50 mls @ 100 mls/hr IVPB Q6H [facility] Last Admin: 04/03/17 02:08 Dose: 100 mls/hr Insulin Human Regular (Novolin R) 0 unit SC ACHS [facility] PRN Reason: Protocol Last Admin: 04/03/17 07:30 Dose: Not Given Ketorolac Tromethamine (Toradol) 15 mg IVP Q6 PRN PRN Reason: Pain, moderate (4-7) Last Admin: 04/02/17 20:26 Dose: 15 mg Lactobacillus Acidophilus (Bacid Acidophilus) 1 cap PO BID [facility] Last Admin: 04/02/17 17:58 Dose: 1 cap Morphine Sulfate (Morphine) 1 mg IVP Q4H PRN PRN Reason: Pain, severe (8-10) Nebivolol (Bystolic) 2.5 mg PO DAILY [facility] Last Admin: 04/02/17 13:13 Dose: 2.5 mg Nifedipine (Procardia Xl) 90 mg PO DAILY [facility] Last Admin: 04/02/17 13:05 Dose: 90 mg Ondansetron HCl (Zofran Inj) 4 mg IVP Q6H PRN PRN Reason: Nausea/Vomiting Pantoprazole Sodium (Protonix Inj) 40 mg IVP DAILY [facility] Last Admin: 03/31/17 09:11 Dose: 40 mg Topiramate (Topamax) 50 mg PO BID [facility] Last Admin: 04/02/17 17:58 Dose: 50 mg - Labs Labs: 04/03/17 07:09 04/03/17 07:09 PT 15.8 SECONDS (9.7-12.2) H 04/01/17 08:34 INR 1.4 04/01/17 08:34 - Constitutional Appears: Non-toxic, No Acute Distress - Eye Exam Eye Exam: EOMI, PERRL - ENT Exam ENT Exam: Mucous Membranes Moist - Respiratory Exam Respiratory Exam: Clear to Ausculation Bilateral. absent: Rales, Rhonchi, Wheezes - Cardiovascular Exam Cardiovascular Exam: RRR, +S1, +S2 - GI/Abdominal Exam GI & Abdominal Exam: Soft, Tenderness (RUQ, minimal), Normal Bowel Sounds. absent: Distended, Firm, Guarding, Rigid, Organomegaly - Extremities Exam Extremities Exam: Pedal Edema (1+ B/L) - Neurological Exam Neurological Exam: Alert, Awake, Oriented x3 - Psychiatric Exam Psychiatric exam: Normal Affect, Normal Mood - Skin Skin Exam: Dry, Warm Assessment and Plan - Assessment and Plan (Free Text) Assessment: Patient is a 76yo female with PMHx significant for CAD (on plavix), HTN, CKD, osteoporosis who presented with abdominal pain and jaundice. -Choledocolithiasis/biliary obstruction at distal CBD -Hyperbilirubinemia 2/2 above -High anion gap metabolic acidosis -CKD with JADE Plan: -Cardiology has cleared patient for ERCP -Plan for ERCP tomorrow with stent placement - admits to prior ERCP at [facility], unclear if had sphincterotomy/stone extraction previously -Low fat, heart healthy diet for lunch, NPO past MN -Patient off Plavix, last dose on 03/31 -Heparin ppx OK to give today, D/C after evening dose -Check routine blood work in AM -Cont empiric antibiotic therapy -Noted anion gap metabolic acidosis in setting of worsening CKD, consider nephrology input <Adriel Hoskins - Last Filed: 04/03/17 09:09> Objective - Vital Signs/Intake and Output Vital Signs (last 24 hours): Temp Pulse Resp BP Pulse Ox 98.0 F 54 L 20 116/46 L 97 04/03/17 07:15 04/03/17 07:15 04/03/17 07:15 04/03/17 07:15 04/03/17 07:15 - Medications Medications: Current Medications Acetaminophen (Tylenol 325mg Tab) 650 mg PO Q6 PRN PRN Reason: Fever >100.4 F Clopidogrel Bisulfate (Plavix) 75 mg PO DAILY [facility] Last Admin: 04/01/17 11:58 Dose: Not Given Heparin Sodium (Porcine) (Heparin) 5,000 units SC Q12 [facility] Last Admin: 04/03/17 09:01 Dose: Not Given Home Med (Dextromethorphan Hbr/Quinidine [Nuedexta 20-10 Mg Capsule]) 1 tab PO BID [facility] Piperacillin Sod/Tazobactam Sod (Zosyn 2.25 Gm Iv Premix) 2.25 gm in 50 mls @ 100 mls/hr IVPB Q6H [facility] Last Admin: 04/03/17 08:42 Dose: 100 mls/hr Insulin Human Regular (Novolin R) 0 unit SC ACHS [facility] PRN Reason: Protocol Last Admin: 04/03/17 07:30 Dose: Not Given Ketorolac Tromethamine (Toradol) 15 mg IVP Q6 PRN PRN Reason: Pain, moderate (4-7) Last Admin: 04/02/17 20:26 Dose: 15 mg Lactobacillus Acidophilus (Bacid Acidophilus) 1 cap PO BID [facility] Last Admin: 04/03/17 09:01 Dose: 1 cap Morphine Sulfate (Morphine) 1 mg IVP Q4H PRN PRN Reason: Pain, severe (8-10) Nebivolol (Bystolic) 2.5 mg PO DAILY [facility] Last Admin: 04/03/17 09:01 Dose: 2.5 mg Nifedipine (Procardia Xl) 90 mg PO DAILY [facility] Last Admin: 04/03/17 09:01 Dose: 90 mg Ondansetron HCl (Zofran Inj) 4 mg IVP Q6H PRN PRN Reason: Nausea/Vomiting Pantoprazole Sodium (Protonix Inj) 40 mg IVP DAILY [facility] Last Admin: 03/31/17 09:11 Dose: 40 mg Topiramate (Topamax) 50 mg PO BID [facility] Last Admin: 04/03/17 09:01 Dose: 50 mg - Labs Labs: 04/03/17 07:09 04/03/17 07:09 PT 15.8 SECONDS (9.7-12.2) H 04/01/17 08:34 INR 1.4 04/01/17 08:34 Attending/Attestation - Attestation I have personally seen and examined this patient.: Yes I have fully participated in the care of the patient.: Yes I have reviewed all pertinent clinical information, including history, physical exam and plan: Yes Notes (Text): 04/03/17 09:06 I have seen and examined patient with GI fellow. No acute events overnight, she is seen resting in bed comfortably. She reports ongoing loose bowel movements and mild RUQ abdominal pain. She denies nausea, vomiting, fever/ chills. Tolerating PO diet without difficulty. Review of vitals from today are normal. CAD on plavix (held) Acute on chronic renal insufficiency HTN Abdominal pain, jaundice - choledocholithiasis - Liquid diet as tolerated - Continue with antibiotic therapy - LFTs trending down, continue to monitor - Obtain stool studies - Patient planned for ERCP tomorrow for management of biliary obstruction, NPO after midnight
[2017-04-03] MEDS: NIFEdipine 90 mg ER Tab PO SCH (09:01)
[2017-04-03] MEDS: Lactobacillus Acidophilus 500 MU Cap PO SCH ×2 (09:01→17:17)
[2017-04-03 09:55] LABS: CERULOPLASMIN 35 mg/dL (18-53)
--- NOTE | 2017-04-03 09:57 | CP.PCM.PN ---
<Melonie Echeverria - Last Filed: 04/03/17 10:38> Subjective - Date & Time of Evaluation Date of Evaluation: 04/03/17 Time of Evaluation: 09:00 - Subjective Subjective: Medicine Note for Hospitalist Service- Dr. Zapata Patient was seen and examined at bedside. Patient reports she feels better. Stated she tolerated CLD and is ambulating well. Denied fever, chills, chest pain,abdominal pain, n/v/d/c, or urinary symptoms. Objective - Vital Signs/Intake and Output Vital Signs (last 24 hours): Temp Pulse Resp BP Pulse Ox 98.0 F 54 L 20 116/46 L 97 04/03/17 07:15 04/03/17 07:15 04/03/17 07:15 04/03/17 07:15 04/03/17 07:15 - Medications Medications: Current Medications Acetaminophen (Tylenol 325mg Tab) 650 mg PO Q6 PRN PRN Reason: Fever >100.4 F Clopidogrel Bisulfate (Plavix) 75 mg PO DAILY [facility] Last Admin: 04/01/17 11:58 Dose: Not Given Heparin Sodium (Porcine) (Heparin) 5,000 units SC Q12 [facility] Last Admin: 04/03/17 09:01 Dose: Not Given Piperacillin Sod/Tazobactam Sod (Zosyn 2.25 Gm Iv Premix) 2.25 gm in 50 mls @ 100 mls/hr IVPB Q6H [facility] Last Admin: 04/03/17 08:42 Dose: 100 mls/hr Metronidazole (Flagyl) 500 mg in 100 mls @ 100 mls/hr IVPB Q8 [facility] Insulin Human Regular (Novolin R) 0 unit SC ACHS [facility] PRN Reason: Protocol Last Admin: 04/03/17 07:30 Dose: Not Given Ketorolac Tromethamine (Toradol) 15 mg IVP Q6 PRN PRN Reason: Pain, moderate (4-7) Last Admin: 04/02/17 20:26 Dose: 15 mg Lactobacillus Acidophilus (Bacid Acidophilus) 1 cap PO BID [facility] Last Admin: 04/03/17 09:01 Dose: 1 cap Morphine Sulfate (Morphine) 1 mg IVP Q4H PRN PRN Reason: Pain, severe (8-10) Nebivolol (Bystolic) 2.5 mg PO DAILY [facility] Last Admin: 04/03/17 09:01 Dose: 2.5 mg Nifedipine (Procardia Xl) 90 mg PO DAILY [facility] Last Admin: 04/03/17 09:01 Dose: 90 mg Ondansetron HCl (Zofran Inj) 4 mg IVP Q6H PRN PRN Reason: Nausea/Vomiting Pantoprazole Sodium (Protonix Inj) 40 mg IVP DAILY [facility] Last Admin: 03/31/17 09:11 Dose: 40 mg Potassium Chloride (K-Dur 20 Meq Er Tab) 40 meq PO ONCE ONE Stop: 04/03/17 10:01 Topiramate (Topamax) 50 mg PO BID [facility] Last Admin: 04/03/17 09:01 Dose: 50 mg - Labs Labs: 04/03/17 07:09 04/03/17 07:09 PT 15.8 SECONDS (9.7-12.2) H 04/01/17 08:34 INR 1.4 04/01/17 08:34 - Additional Findings Additional findings: - Constitutional Appears: Non-toxic, No Acute Distress - Eye Exam Eye Exam: EOMI, PERRL - ENT Exam ENT Exam: Mucous Membranes Moist - Respiratory Exam Respiratory Exam: Clear to Ausculation Bilateral. absent: Rales, Rhonchi, Wheezes - Cardiovascular Exam Cardiovascular Exam: RRR, +S1, +S2 - GI/Abdominal Exam GI & Abdominal Exam: Soft, Normal Bowel Sounds. absent: Distended, Firm, Guarding, Rigid, Tenderness, Organomegaly - Extremities Exam Extremities Exam: Normal Inspection. absent: Pedal Edema - Neurological Exam Neurological Exam: Alert, Awake, Oriented x3 - Psychiatric Exam Psychiatric exam: Normal Affect, Normal Mood - Skin Skin Exam: Dry, Warm Assessment and Plan - Assessment and Plan (Free Text) Plan: Choledocolithiasis/biliary obstruction at distal CBD Hyperbilirubinemia Transaminitis * GI consulted - Dr. Naidu- help appreciated * AST/ALT: 307/290, Alk phos 866, T Bili: 2.6 * Hepatitis panel - negative * Normal findings on 03/30 CT scan regarding liver * 03/31 MRCP showed moderately to markedly dilated proximal common bile duct with large filling defect noted in the distal common bile duct, which could represent multiple choledocholithiasis (differential consideration includes less likely distal CBD neoplasm or stricture). Also noted [id number] intrahepatic biliary ductal dilatation, cirrhosis with findings suggestive of portal hypertension including splenomegaly and trace ascites, and 6.3 millimeter cyst at the pancreatic head. * Plan for ERCP on Sunday * GI plans for ERCP to place stent, saying that stone will have to be removed at a later date because of patient being on blood thinners * Cardiology consulted - Dr. Corona- for cardio clearance and echo ordered for findings seen on CT abd/pelvis * S/P Stress Test: Stress test: Normal * ECHO: LVEF 55-62%, Moderate diastolic dysfunction. Grade 2 pseudonormal filling * Cardiac point of cleared for GI procedures (ERCP) * Cardiac Risk: Low to Intermediate Colitis Diarrhea * GI consulted -Dr. Naidu- help appreciated * SIRS: Febrile, bandemia- high of 36 , lactate normal x 2 * Blood Cultures negative up to date * Stool culture: negative * Negative stool leukocytes * F/U C Diff * Low bicarb, elevated chloride Imaging: * CT ab/pel: Mild colitis limited to the ascending colon, small pericardial effusion and cardiomegaly * Abdominal Obstructive Xray: Cardiomegaly. Mild bibasilar atelectasis. Cholecystectomy clips. Nonspecific bowel gas pattern. Meds: * 1/2 NS with 1amp bicarb * Zosyn Q6H, Flagyl started * Probiotics 2 hours prior to abx administration * Toradol, Morphine, Zofran PRN Anemia * Baseline hemoglobin 10 * On admission 9, slowly downtrending will continue to monitor * Retic count 1.5 * Iron 23 * TIBC 259 * % Saturation 9 * Ferritin 103 Fever * Tmax: 100.6 on 03/30/17 - afebrile to date * No leukocytosis * Rales in RLL * CXR (03/31): Pulmonary venous congestion and interval increased perihilar reticular and small nodular opacities since the previous exam * stopped fluids on 04/01 and started CLD * ID consulted, Dr. Owens, help appreciated CKD, Stage 4 * Nephrology consulted - Dr. Juárez - help appreciated - patient is established with this group * Not on dialysis * Baseline creatine 1-1.5 * On admission 2.2 * Currently 3.4 HTN * Bystolic and nifedipine XL continued (home meds) * Lipid panel noted: Tri, Chol: 186, LDL: 97, HDL: 37 T2DM * Accuchecks * A1C- 5.1 * ISS- low Prophylactic Measures * GI PPX: Protonix 40mg PO daily * DVT PPX: SCDs, VTE c/i due to symptomatic anemia DW Dr. Zapata, Melonie Echeverria DO, PGY-1 <Brad Zapata H - Last Filed: 04/03/17 14:28> Objective - Vital Signs/Intake and Output Vital Signs (last 24 hours): Temp Pulse Resp BP Pulse Ox 98.0 F 54 L 20 116/46 L 97 04/03/17 07:15 04/03/17 07:15 04/03/17 07:15 04/03/17 07:15 04/03/17 07:15 - Medications Medications: Current Medications Acetaminophen (Tylenol 325mg Tab) 650 mg PO Q6 PRN PRN Reason: Fever >100.4 F Clopidogrel Bisulfate (Plavix) 75 mg PO DAILY [facility] Last Admin: 04/01/17 11:58 Dose: Not Given Heparin Sodium (Porcine) (Heparin) 5,000 units SC Q12 [facility] Last Admin: 04/03/17 09:01 Dose: Not Given Piperacillin Sod/Tazobactam Sod (Zosyn 2.25 Gm Iv Premix) 2.25 gm in 50 mls @ 100 mls/hr IVPB Q6H [facility] Last Admin: 04/03/17 13:29 Dose: 100 mls/hr Metronidazole (Flagyl) 500 mg in 100 mls @ 100 mls/hr IVPB Q8H [facility] Last Admin: 04/03/17 12:50 Dose: 100 mls/hr Sodium Bicarbonate 150 meq/ (Dextrose) 1,150 mls @ 60 mls/hr IV .[id number] [facility] Last Admin: 04/03/17 13:23 Dose: 60 mls/hr Insulin Human Regular (Novolin R) 0 unit SC ACHS [facility] PRN Reason: Protocol Last Admin: 04/03/17 11:30 Dose: Not Given Lactobacillus Acidophilus (Bacid Acidophilus) 1 cap PO BID [facility] Last Admin: 04/03/17 09:01 Dose: 1 cap Nebivolol (Bystolic) 2.5 mg PO DAILY [facility] Last Admin: 04/03/17 09:01 Dose: 2.5 mg Nifedipine (Procardia Xl) 90 mg PO DAILY [facility] Last Admin: 04/03/17 09:01 Dose: 90 mg Ondansetron HCl (Zofran Inj) 4 mg IVP Q6H PRN PRN Reason: Nausea/Vomiting Pantoprazole Sodium (Protonix Inj) 40 mg IVP DAILY [facility] Last Admin: 03/31/17 09:11 Dose: 40 mg Topiramate (Topamax) 50 mg PO BID [facility] Last Admin: 04/03/17 09:01 Dose: 50 mg - Labs Labs: 04/03/17 07:09 04/03/17 07:09 PT 15.8 SECONDS (9.7-12.2) H 04/01/17 08:34 INR 1.4 04/01/17 08:34 Attending/Attestation - Attestation I have personally seen and examined this patient.: Yes I have fully participated in the care of the patient.: Yes I have reviewed all pertinent clinical information, including history, physical exam and plan: Yes Notes (Text): 04/03/17 14:28 Medical attending: Patient was seen and examined by me, agree with the above the resident. Patient's family member was present, the patient was okay with this. Yesterday she underwent a nuclear stress test as well as an echo. These were stable and patient was cleared by cardiology for the upcoming ERCP Today her reviewed lab work and her creatinine did increase and her serum bicarbonate decreased. Her chloride level was also elevated as well. She explained to us that this morning she is feeling well however last night she was having diarrhea. Slightly that she has some hyperchloremic metabolic acidosis secondary from the diarrhea. On top of this she also has a rising creatinine levels suspected maybe both the diarrhea as well as the CK D that's present. Regarding get a nephrology consult. At this time will start very slow affect half normal saline intravenous fluids with 1 amp of bicarbonate for the time being. When we saw her examination today she was not in any pain. On palpation of her abdomen she did not have pain in the right upper quadrant. thank you Brad Zapata
[2017-04-03] MEDS ORDERED: Potassium Chloride 20 mEq ER Tab PO ONE ×2 (10:00→13:10)
[2017-04-03] MEDS ORDERED: metroNIDAZOLE IV 500 mg/100 ml 500 MG/100 ML BAG IVPB SCH (12:00)
--- NOTE | 2017-04-03 12:04 | CP.PCM.CON ---
History of Present Illness - History of Present Illness History of Present Illness: 76 Female with PMHx HTN, DM, CKD, RA, OA presents to the ED with abdominal pain and obstructibve jaundice along with elevated LFTs. MRCP showed dilated cbd, pt to undergo ERCP tomorrow. +diarrhea. She was noted to have elevated creatinine, worsening over the last few days. BAseline creatinine 1.5-1.6 mg/dl, up to 3.[address] scan of abdomen- no hydronephrosis. Pt had diarrhea yesterday, no bm today. denies any dysuria hematuria decreased uop. poor po intake, on liquid diet. no n/v. PMHx: HTN, DM, CKD, RA, OA PSHx: Cholecystectomy, Appendectomy All: Fish- rash SHx: Denied tobacco, alcohol, illicit drug use FHx: Unremarkable Review of Systems - Review of Systems All systems: reviewed and no additional remarkable complaints except (as per HPI ) Past Patient History - Infectious Disease Hx of Infectious Diseases: None - Past Medical History & Family History Past Medical History?: Yes - Past Social History Smoking Status: Never Smoked - CARDIAC Hx Cardiac Disorders: Yes (CAD, Coronary Stent) Hx Hypercholesterolemia: Yes Hx Hypertension: Yes - PULMONARY Hx Respiratory Disorders: No - NEUROLOGICAL Hx Migraine: Yes - HEENT Hx HEENT Problems: No - RENAL Hx Chronic Kidney Disease: No - ENDOCRINE/METABOLIC Hx Diabetes Mellitus Type 2: Yes - HEMATOLOGICAL/ONCOLOGICAL Hx Blood Transfusions: No Hx Blood Transfusion Reaction: No - INTEGUMENTARY Hx Dermatological Problems: No - MUSCULOSKELETAL/RHEUMATOLOGICAL Hx Arthritis: Yes - GASTROINTESTINAL Hx Gastrointestinal Disorders: No - GENITOURINARY/GYNECOLOGICAL Hx Genitourinary Disorders: No - PSYCHIATRIC Hx Substance Use: No - SURGICAL HISTORY Hx Appendectomy: Yes Hx Cholecystectomy: Yes Hx Coronary Stent: Yes (X4) - ANESTHESIA Hx Anesthesia: Yes Hx Anesthesia Reactions: Yes Hx Malignant Hyperthermia: No Meds Allergies/Adverse Reactions: Allergies Allergy/AdvReac Type Severity Reaction Status Date / Time ciprofloxacin [From Cipro] Allergy ANAPHYLAXIS Verified 03/30/17 12:01 ciprofloxacin HCl Allergy ANAPHYLAXIS Verified 03/30/17 12:01 [From Cipro] seafood Allergy ANAPHYLAXIS Uncoded 03/30/17 12:01 - Medications Medications: Current Medications Acetaminophen (Tylenol 325mg Tab) 650 mg PO Q6 PRN PRN Reason: Fever >100.4 F Clopidogrel Bisulfate (Plavix) 75 mg PO DAILY [facility] Last Admin: 04/01/17 11:58 Dose: Not Given Heparin Sodium (Porcine) (Heparin) 5,000 units SC Q12 [facility] Last Admin: 04/03/17 09:01 Dose: Not Given Piperacillin Sod/Tazobactam Sod (Zosyn 2.25 Gm Iv Premix) 2.25 gm in 50 mls @ 100 mls/hr IVPB Q6H [facility] Last Admin: 04/03/17 08:42 Dose: 100 mls/hr Metronidazole (Flagyl) 500 mg in 100 mls @ 100 mls/hr IVPB Q8H [facility] Potassium Chloride (Potassium Chloride 20 Meq/100 Ml) 20 meq in 100 mls @ 50 mls/hr IVPB ONCE ONE Stop: 04/03/17 13:53 Dextrose/ Sodium Bicarbonate 1,150 mls @ 60 mls/hr IV .[id number] [facility] Insulin Human Regular (Novolin R) 0 unit SC ACHS [facility] PRN Reason: Protocol Last Admin: 04/03/17 07:30 Dose: Not Given Ketorolac Tromethamine (Toradol) 15 mg IVP Q6 PRN PRN Reason: Pain, moderate (4-7) Last Admin: 04/02/17 20:26 Dose: 15 mg Lactobacillus Acidophilus (Bacid Acidophilus) 1 cap PO BID [facility] Last Admin: 04/03/17 09:01 Dose: 1 cap Morphine Sulfate (Morphine) 1 mg IVP Q4H PRN PRN Reason: Pain, severe (8-10) Nebivolol (Bystolic) 2.5 mg PO DAILY [facility] Last Admin: 04/03/17 09:01 Dose: 2.5 mg Nifedipine (Procardia Xl) 90 mg PO DAILY [facility] Last Admin: 04/03/17 09:01 Dose: 90 mg Ondansetron HCl (Zofran Inj) 4 mg IVP Q6H PRN PRN Reason: Nausea/Vomiting Pantoprazole Sodium (Protonix Inj) 40 mg IVP DAILY [facility] Last Admin: 03/31/17 09:11 Dose: 40 mg Topiramate (Topamax) 50 mg PO BID [facility] Last Admin: 04/03/17 09:01 Dose: 50 mg Physical Exam - Constitutional Appears: No Acute Distress, Cachectic, Chronically Ill - Head Exam Head Exam: NORMAL INSPECTION, NORMOCEPHALIC - Eye Exam Eye Exam: Normal appearance, PERRL - ENT Exam ENT Exam: Mucous Membranes Moist, Normal Exam - Neck Exam Neck exam: Positive for: Normal Inspection - Respiratory Exam Respiratory Exam: Clear to Auscultation Bilateral, NORMAL BREATHING PATTERN - Cardiovascular Exam Cardiovascular Exam: REGULAR RHYTHM, RRR - GI/Abdominal Exam GI & Abdominal Exam: Distended, Hypoactive Bowel Sounds, Soft - Extremities Exam Extremities exam: Positive for: normal inspection, pedal edema (trace) - Neurological Exam Neurological exam: Alert, Oriented x3 - Psychiatric Exam Psychiatric exam: Normal Affect, Normal Mood - Skin Skin Exam: Dry, Intact Results - Vital Signs Recent Vital Signs: Last Vital Signs Temp 98.0 F 04/03/17 07:15 Pulse 54 L 04/03/17 07:15 Resp 20 04/03/17 07:15 BP 116/46 L 04/03/17 07:15 Pulse Ox 97 04/03/17 07:15 - Labs Result Diagrams: 04/03/17 07:09 04/03/17 07:09 Labs: Laboratory Results - last 24 hr 04/01/17 04/02/17 04/02/17 08:34 16:24 21:16 WBC RBC Hgb Hct MCV MCH MCHC RDW Plt Count MPV Neut % (Auto) Lymph % (Auto) [place] % (Auto) Eos % (Auto) Baso % (Auto) Neut # (Auto) Lymph # (Auto) [place] # (Auto) Eos # (Auto) Baso # (Auto) Sodium Potassium Chloride Carbon Dioxide Anion Gap BUN Creatinine Est GFR ( Amer) Est GFR (Non-Af Amer) POC Glucose (mg/dL) 105 122 H Random Glucose Calcium Phosphorus Magnesium Total Bilirubin AST ALT Alkaline Phosphatase Total Protein Albumin Globulin Albumin/Globulin Ratio Ceruloplasmin 35 Anti-Mitochondrial Ab Negative Anti-Smooth Muscle Ab Negative 04/03/17 04/03/17 04/03/17 06:41 07:09 07:09 WBC 2.8 L RBC 2.79 L Hgb 8.4 L Hct 25.5 L MCV 91.2 MCH 30.0 MCHC 32.9 L RDW 15.3 H Plt Count 169 MPV 9.6 Neut % (Auto) 44.4 L Lymph % (Auto) 44.1 H [place] % (Auto) 6.8 Eos % (Auto) 3.9 Baso % (Auto) 0.8 Neut # (Auto) 1.2 L Lymph # (Auto) 1.2 [place] # (Auto) 0.2 Eos # (Auto) 0.1 Baso # (Auto) 0.0 Sodium 139 Potassium 3.5 L Chloride 116 H Carbon Dioxide 11 L* Anion Gap 16 BUN 24 H Creatinine 3.4 H Est GFR ( Amer) 16 Est GFR (Non-Af Amer) 13 POC Glucose (mg/dL) 101 Random Glucose 101 Calcium 8.1 L Phosphorus 4.0 Magnesium 2.3 Total Bilirubin 2.8 H AST 55 H ALT 75 H D Alkaline Phosphatase 444 H Total Protein 6.4 Albumin 2.8 L Globulin 3.5 Albumin/Globulin Ratio 0.8 L Ceruloplasmin Anti-Mitochondrial Ab Anti-Smooth Muscle Ab Assessment & Plan (1) Acute renal failure Status: Acute (2) Diabetes Status: Acute (3) HTN (hypertension) Status: Acute (4) Renal insufficiency Status: Acute (5) Metabolic acidosis Status: Acute - Assessment and Plan (Free Text) Assessment: naseem w/ unerlying ckd ? atn/ ain. check urine na, ua. gee placement avoid nsaids including toradol met acidosis -hyperchloremic. dc iv saline. bicarb gtt after potassium supplemenation hypokalemia: poor intake. supplemented, check urine lytes will follow along
[2017-04-03] MEDS: metroNIDAZOLE IV 500 mg/100 ml 500 MG/100 ML BAG IVPB SCH ×2 (12:50→20:30)
[2017-04-03] MEDS: Sodium Bicarbonate 8.4% 150 MEQ in Dextrose 5% In Water 1,000 ML IV SCH (13:23)
[2017-04-03 15:02] LABS: SQUAMOUS EPITHIAL 1 /hpf (0-5); URINE BACTERIA OCC (<OCC); URINE BILIRUBIN NEGATIVE (NEGATIVE); URINE BLOOD 1+ (NEGATIVE); URINE CLARITY Hazy (Clear); URINE COLOR Amber (YELLOW); URINE GLUCOSE (UA) 1+ mg/dL (Normal); URINE HYALINE CAST 0-2 /lpf (0-2); URINE LEUKOCYTE ESTERASE NEG Leu/uL (Negative); URINE NITRATE NEGATIVE (NEGATIVE); URINE PROTEIN 3+ mg/dL (NEGATIVE); URINE UROBILINOGEN NORMAL mg/dL (0.2-1.0)
[2017-04-04] MEDS: Piperacill/Tazo 2.25gm in Dex 2.25 GM/50 ML BAG IVPB SCH ×3 (01:52→19:08)
[2017-04-04] MEDS: metroNIDAZOLE IV 500 mg/100 ml 500 MG/100 ML BAG IVPB SCH ×3 (05:10→20:19)
--- NOTE | 2017-04-04 07:17 | CP.PCM.PN ---
Subjective - Date & Time of Evaluation Date of Evaluation: 04/04/17 Time of Evaluation: 07:00 - Subjective Subjective: Medicine Note for Hospitalist Service- Dr. Zapata Patient was seen and examined at bedside. Patient is for ERCP this morning. No acute complaints reports she feels better. Denied fever, chills, chest pain, abdominal pain, n/v/d/c, or urinary symptoms. Objective - Vital Signs/Intake and Output Vital Signs (last 24 hours): Temp Pulse Resp BP Pulse Ox 98.2 F 60 20 135/69 97 04/03/17 23:45 04/03/17 23:45 04/03/17 23:45 04/03/17 23:45 04/03/17 23:45 Intake and Output: 04/04/17 04/04/17 06:59 18:59 Intake Total 615 Output Total 1150 Balance -535 - Medications Medications: Current Medications Acetaminophen (Tylenol 325mg Tab) 650 mg PO Q6 PRN PRN Reason: Fever >100.4 F Last Admin: 04/03/17 17:24 Dose: 650 mg Clopidogrel Bisulfate (Plavix) 75 mg PO DAILY [facility] Last Admin: 04/01/17 11:58 Dose: Not Given Heparin Sodium (Porcine) (Heparin) 5,000 units SC Q12 [facility] Last Admin: 04/03/17 21:14 Dose: Not Given Piperacillin Sod/Tazobactam Sod (Zosyn 2.25 Gm Iv Premix) 2.25 gm in 50 mls @ 100 mls/hr IVPB Q6H [facility] Last Admin: 04/04/17 01:52 Dose: 100 mls/hr Metronidazole (Flagyl) 500 mg in 100 mls @ 100 mls/hr IVPB Q8H [facility] Last Admin: 04/04/17 05:10 Dose: 100 mls/hr Sodium Bicarbonate 150 meq/ (Dextrose) 1,150 mls @ 60 mls/hr IV .[id number] [facility] Last Admin: 04/03/17 13:23 Dose: 60 mls/hr Insulin Human Regular (Novolin R) 0 unit SC ACHS [facility] PRN Reason: Protocol Last Admin: 04/03/17 22:00 Dose: Not Given Lactobacillus Acidophilus (Bacid Acidophilus) 1 cap PO BID [facility] Last Admin: 04/03/17 17:17 Dose: 1 cap Nebivolol (Bystolic) 2.5 mg PO DAILY [facility] Last Admin: 04/03/17 09:01 Dose: 2.5 mg Nifedipine (Procardia Xl) 90 mg PO DAILY [facility] Last Admin: 04/03/17 09:01 Dose: 90 mg Ondansetron HCl (Zofran Inj) 4 mg IVP Q6H PRN PRN Reason: Nausea/Vomiting Last Admin: 04/03/17 21:09 Dose: 4 mg Pantoprazole Sodium (Protonix Inj) 40 mg IVP DAILY [facility] Last Admin: 03/31/17 09:11 Dose: 40 mg Topiramate (Topamax) 50 mg PO BID [facility] Last Admin: 04/03/17 17:17 Dose: 50 mg - Labs Labs: 04/03/17 07:09 04/03/17 07:09 PT 15.8 SECONDS (9.7-12.2) H 04/01/17 08:34 INR 1.4 04/01/17 08:34 - Additional Findings Additional findings: - Constitutional Appears: Non-toxic, No Acute Distress - Eye Exam Eye Exam: EOMI, PERRL - ENT Exam ENT Exam: Mucous Membranes Moist - Respiratory Exam Respiratory Exam: Clear to Ausculation Bilateral. absent: Rales, Rhonchi, Wheezes - Cardiovascular Exam Cardiovascular Exam: RRR, +S1, +S2 - GI/Abdominal Exam GI & Abdominal Exam: Soft, Normal Bowel Sounds. absent: Distended, Firm, Guarding, Rigid, Tenderness, Organomegaly - Extremities Exam Extremities Exam: Normal Inspection. absent: Pedal Edema - Neurological Exam Neurological Exam: Alert, Awake, Oriented x3 - Psychiatric Exam Psychiatric exam: Normal Affect, Normal Mood - Skin Skin Exam: Dry, Warm Assessment and Plan - Assessment and Plan (Free Text) Plan: Choledocolithiasis/biliary obstruction at distal CBD Hyperbilirubinemia Transaminitis * GI consulted - Dr. Naidu- help appreciated * AST/ALT: 307/290, Alk phos 866, T Bili: 2.6 * Hepatitis panel - negative * Normal findings on 03/30 CT scan regarding liver * 03/31 MRCP showed moderately to markedly dilated proximal common bile duct with large filling defect noted in the distal common bile duct, which could represent multiple choledocholithiasis (differential consideration includes less likely distal CBD neoplasm or stricture). Also noted [id number] intrahepatic biliary ductal dilatation, cirrhosis with findings suggestive of portal hypertension including splenomegaly and trace ascites, and 6.3 millimeter cyst at the pancreatic head. * Plan for ERCP - today. Patient NPO, heparin held * GI plans for ERCP to place stent, saying that stone will have to be removed at a later date because of patient being on blood thinners * Cardiology consulted - Dr. Corona- for cardio clearance and echo ordered for findings seen on CT abd/pelvis * S/P Stress Test: Stress test: Normal * ECHO: LVEF 55-62%, Moderate diastolic dysfunction. Grade 2 pseudonormal filling * Cardiac point of cleared for GI procedures (ERCP) * Cardiac Risk: Low to Intermediate Colitis Diarrhea * GI consulted -Dr. Naidu- help appreciated * SIRS: Febrile, bandemia- high of 36 , lactate normal x 2 * Blood Cultures negative up to date * Stool culture: negative * Negative stool leukocytes * F/U C Diff * Low bicarb, elevated chloride Imaging: * CT ab/pel: Mild colitis limited to the ascending colon, small pericardial effusion and cardiomegaly * Abdominal Obstructive Xray: Cardiomegaly. Mild bibasilar atelectasis. Cholecystectomy clips. Nonspecific bowel gas pattern. Meds: * D5 NS with 150 MEQ Sodium Bicarb - started by Nephrology * Marie inserted * Zosyn Q6H, Flagyl started 04/03/17 due to persistent diarrhea * Probiotics 2 hours prior to abx administration * Toradol, Morphine, Zofran PRN JADE with underlying CKD, Stage 4 * Nephrology consulted - Dr. Juárez - carey appreciated - patient is established with this group * Not on dialysis * Baseline creatine 1-1.5 * On admission 2.2 * Currently 3.2 Metabolic Acidosis Nephrology consulted - Dr. Juárez- carey appreciated D5 NS with 150 MEQ Sodium Bicarb - started by Nephrology Anemia of Chronic Disease * Baseline hemoglobin 10 * On admission 9, slowly downtrending will continue to monitor * Will have 1 unit PRBC on hold, will most likely transfuse tomorrow after ERCP * Retic count 1.5 * Iron 23 * TIBC 259 * % Saturation 9 * Ferritin 103 HTN * Bystolic and nifedipine XL continued (home meds) * Lipid panel noted: Tri, Chol: 186, LDL: 97, HDL: 37 T2DM * Accuchecks * A1C- 5.1 * ISS- low Fever- RESOLVED * Tmax: 100.6 on 03/30/17 - afebrile to date * No leukocytosis * Rales in RLL * CXR (03/31): Pulmonary venous congestion and interval increased perihilar reticular and small nodular opacities since the previous exam * ID consulted, Dr. Owens, help appreciated Prophylactic Measures * GI PPX: Protonix 40mg PO daily * DVT PPX: SCDs, VTE c/i due to symptomatic anemia HAYLEE Zapata, Melonie Echeverria DO, PGY-1
[2017-04-04] MEDS: (Novolin R) Insulin Human Regular 100 units/ml vial SC SCH ×4 (07:18→21:30)
[2017-04-04 07:51] LABS: INR 1.2; PROTHROMBIN TIME 13.6 SECONDS (9.7-12.2)
[2017-04-04 07:59] LABS: ALB/GLOB RATIO 0.7 (1.0-2.1); ALBUMIN 2.9 g/dL (3.5-5.0); CALCIUM 8.5 mg/dl (8.6-10.4); MAGNESIUM 2.2 mg/dL (1.6-2.3)
[2017-04-04 08:02] LABS: BASO % 0.8 % (0.0-2.0); EOS # 0.1 K/uL (0.0-0.7); EOS % 2.4 % (0.0-4.0); HEMOGLOBIN 8.2 g/dL (11.0-16.0); LYMPH # 1.2 K/uL (1.0-4.3); LYMPH % 41.6 % (20.0-40.0); MEAN CORPUSCULAR HEMOGLOBIN 30.8 pg (27.0-31.0); MEAN CORPUSCULAR HGB CONC 33.8 g/dL (33.0-37.0); MEAN PLATELET VOLUME 9.7 fL (7.2-11.7); MONO # 0.2 K/uL (0.0-0.8); MONO % 6.4 % (0.0-10.0); NEUT # 1.4 K/uL (1.8-7.0); NEUT % 48.8 % (50.0-75.0); NRBC % 0.1 % (0.0-2.0); RBC 2.67 Mil/uL (3.80-5.20); RED CELL DISTRIBUTION WIDTH 14.9 % (11.5-14.5)
--- NOTE | 2017-04-04 10:05 | RAD ---
HISTORY: Evaluate fluid congestion COMPARISON: Comparison chest dated 03/31/2017 FINDINGS: LUNGS: Mild pulmonary vascular congestion slightly improved from prior study. PLEURA: No significant pleural effusion identified, no pneumothorax apparent. CARDIOVASCULAR: Cardiomegaly. OSSEOUS STRUCTURES: No significant abnormalities. VISUALIZED UPPER ABDOMEN: Normal. OTHER FINDINGS: None. IMPRESSION: Mild vascular congestive changes slightly improved from prior study
[2017-04-04] MEDS ORDERED: Indomethacin 50 MG Suppository PR ONE (12:33)
[2017-04-04] MEDS ORDERED: Succinylcholine Chloride 20 mg/ml Syr (5 ml) IV ONE (12:35)
[2017-04-04] MEDS ORDERED: Propofol 10 mg/ml Inj (20 ML) ONE (12:35)
[2017-04-04] MEDS: Lactobacillus Acidophilus 500 MU Cap PO SCH ×2 (12:46→20:19)
[2017-04-04] MEDS: NIFEdipine 90 mg ER Tab PO SCH (12:47)
[2017-04-04] MEDS ORDERED: Sodium Chloride 0.9% 20 ML IV ONE (13:01)
[2017-04-04] MEDS ORDERED: Glucagon Recombinant 1 mg Inj ONE ×2 (13:26→13:27)
[2017-04-04] MEDS ORDERED: Morphine 4 MG/ML VIAL ONE (13:59)
[2017-04-04] MEDS ORDERED: Lactated Ringer's 500 ML IV SCH (14:45)
--- NOTE | 2017-04-04 15:58 | PCM.RRT ---
<Marshall Tavares - Last Filed: 04/04/17 15:56> CHAMBER WORKER Nurses Assessment - Situation Date: 04/04/17 Time CHAMBER WORKER was called: 15:56 CHAMBER WORKER Responder Arrival Time:: 15:56 CHAMBER WORKER Location:: Med/Surg Room Number: 650A CHAMBER WORKER Reason for Call: Change in Mental Status CHAMBER WORKER Called By: Other Disciplines, Patient/Family Request - IV IV Inserted during CHAMBER WORKER?: No - Respiratory CHAMBER WORKER Delivery Method: Room Air Received Nebulizer Treatments: No Was the Patient Ventilated with Bag/Mask 100% O2?: No Secretions Suctioned?: No Was the Patient Intubated?: No Was the Patient Placed on a Ventilator?: No - Medication Medications Administered During CHAMBER WORKER: Lasix 20mg IV - Diagnostic Test Ordered EKG: No Chest X-Ray: Yes CT Scan: No - Erna Coma Scale Coma Scale Eye Opening: Spontaneous Coma Scale Motor: Obeys Commands Movement Coma Scale Verbal: Oriented Coma Scale Total: 15 - Time CHAMBER WORKER Ended Time CHAMBER WORKER Ended: 15:57 - Recommendations 5) CHAMBER WORKER Level of Care Recommendations: Remain in current setting Notifications: Attending Physician I.Reason for CHAMBER WORKER - A) Acute Change in Patient: (Select all that apply): Staff member or family is worried about patient - Neurological Status (Select all that apply): Alert, Responsive, Oriented, Verbal, Follows Commands - Respiratory Oxygen Delivery Method: Room Air - Constitutional Appears: Well, Non-toxic - Head Head Exam: ATRAUMATIC - Eyes Eye Exam: EOMI, Normal appearance - Respiratory Exam Respiratory Exam: absent: Clear to Ausculation Bilateral (crackles bilateral bases) - Cardiovascular Exam Cardiovascular Exam: REGULAR RHYTHM - GI/Abdominal Exam GI & Abdominal Exam: Soft, Normal Bowel Sounds - Neurological Exam Neurological Exam: Awake, Oriented x3 - Extremities Exam Extremities Exam: Normal Inspection Plan - Assessment of Findings&Treatment Plan Patient received 100mcg of fentanyl during ERCP; patient is oriented to person place and time after 5min into CHAMBER WORKER Vitals stable slight crackles heard at bases; patient received 1L lactated ringers also during surgery patient will get 20mg IV Lasix for possible fluid overload patient with stable vital signs: Temp 97, BP 170/80, HR 55, O2 97% on RA Patient to remain in current setting <rBad Zapata - Last Filed: 04/04/17 16:45> CHAMBER WORKER Nurses Assessment - Vital Signs Vital Signs: Rapid Response Vital Sign Blood Pressure 172/91 Pulse Rate 46 Respiratory Rate 10 Temperature 97.6 F Oxygen Saturation 97 - Vital Signs at end of CHAMBER WORKER Vital Signs at end of CHAMBER WORKER: Rapid Response End Vital Sign Blood Pressure 177/62 Pulse Rate 48 Respiratory Rate 48 Temperature 99.4 F O2 Sat by Pulse Oximetry 98 Attending/Attestation - Attestation I have personally seen and examined this patient.: Yes I have fully participated in the care of the patient.: Yes I have reviewed all pertinent clinical information, including history, physical exam and plan: Yes Notes (Text): 04/04/17 16:45 Medical attending: Patient was seen and examined by me, agrees the above note by medical services manager. She was awake, and was respodning to our questions. When the CHAMBER WORKER was called the patient was still on the strecher and not yet back in her own bed and room. The patient did recieve anesthesia during ERCP. She was a little drowsy when we saw her but then she woke up and we checked her vital signs - these were stable. We do need to check a CXRAY as she appears to have gotten more IVF during the procedure. Also lasix 20 mg IV x 1 as well Family members present as well. And I disuccsed with them. Appreciate the help of aids nurse thank you Brad Zapata
--- NOTE | 2017-04-04 16:13 | RAD ---
HISTORY: rales COMPARISON: No prior. FINDINGS: LUNGS: Continued improvement previously noted mild pulmonary vascular congestion. There appears to be some linear/curvilinear bibasilar atelectasis/scar PLEURA: No significant pleural effusion identified, no pneumothorax apparent. CARDIOVASCULAR: Normal. OSSEOUS STRUCTURES: No significant abnormalities. VISUALIZED UPPER ABDOMEN: Normal. OTHER FINDINGS: None. IMPRESSION: Continued improvement previously noted mild vascular congestion. There appears be some mild linear/ curvilinear bibasilar atelectasis less well
[2017-04-04 17:14] LABS: ALB/GLOB RATIO 0.7 (1.0-2.1); ALBUMIN 3.1 g/dL (3.5-5.0); CALCIUM 8.7 mg/dl (8.6-10.4)
[2017-04-04] MEDS: Sodium Bicarbonate 8.4% 150 MEQ in Dextrose 5% In Water 1,000 ML IV SCH (17:40)
--- NOTE | 2017-04-04 22:40 | CP.PCM.PN ---
Subjective - Date & Time of Evaluation Date of Evaluation: 04/04/17 Time of Evaluation: 07:10 - Subjective Subjective: Patient seen and evaluated Denies chest pain and dyspnea For ERCP today Objective - Vital Signs/Intake and Output Vital Signs (last 24 hours): Temp Pulse Resp BP Pulse Ox 97.4 F L 48 L 18 177/62 H 98 04/04/17 16:05 04/04/17 16:05 04/04/17 16:05 04/04/17 16:05 04/04/17 16:05 Intake and Output: 04/04/17 04/05/17 18:59 06:59 Intake Total 700 Output Total 1600 Balance 700 -1600 - Medications Medications: Current Medications Acetaminophen (Tylenol 325mg Tab) 650 mg PO Q6 PRN PRN Reason: Fever >100.4 F Last Admin: 04/03/17 17:24 Dose: 650 mg Clopidogrel Bisulfate (Plavix) 75 mg PO DAILY [facility] Last Admin: 04/01/17 11:58 Dose: Not Given Heparin Sodium (Porcine) (Heparin) 5,000 units SC Q12 [facility] Last Admin: 04/03/17 21:14 Dose: Not Given Piperacillin Sod/Tazobactam Sod (Zosyn 2.25 Gm Iv Premix) 2.25 gm in 50 mls @ 100 mls/hr IVPB Q6H [facility] Last Admin: 04/04/17 19:08 Dose: 100 mls/hr Metronidazole (Flagyl) 500 mg in 100 mls @ 100 mls/hr IVPB Q8H [facility] Last Admin: 04/04/17 20:19 Dose: 100 mls/hr Sodium Bicarbonate 150 meq/ (Dextrose) 1,150 mls @ 60 mls/hr IV .[id number] [facility] Last Admin: 04/04/17 17:40 Dose: 60 mls/hr Lactated Ringer's (Lactated Ringer's 500ml) 500 mls @ 75 mls/hr IV .Q6H40M [facility] Insulin Human Regular (Novolin R) 0 unit SC ACHS [facility] PRN Reason: Protocol Last Admin: 04/04/17 21:30 Dose: Not Given Lactobacillus Acidophilus (Bacid Acidophilus) 1 cap PO BID [facility] Last Admin: 04/04/17 20:19 Dose: 1 cap Nebivolol (Bystolic) 2.5 mg PO DAILY [facility] Last Admin: 04/04/17 12:46 Dose: Not Given Nifedipine (Procardia Xl) 90 mg PO DAILY [facility] Last Admin: 04/04/17 12:47 Dose: Not Given Ondansetron HCl (Zofran Inj) 4 mg IVP Q6H PRN PRN Reason: Nausea/Vomiting Last Admin: 04/03/17 21:09 Dose: 4 mg Pantoprazole Sodium (Protonix Inj) 40 mg IVP DAILY [facility] Last Admin: 03/31/17 09:11 Dose: 40 mg Topiramate (Topamax) 50 mg PO BID [facility] Last Admin: 04/04/17 18:40 Dose: 50 mg - Labs Labs: 04/04/17 07:30 04/04/17 16:52 PT 13.6 SECONDS (9.7-12.2) H 04/04/17 07:30 INR 1.2 04/04/17 07:30 - Head Exam Head Exam: ATRAUMATIC, NORMAL INSPECTION - Eye Exam Eye Exam: EOMI, Normal appearance Pupil Exam: NORMAL ACCOMODATION, PERRL - ENT Exam ENT Exam: Mucous Membranes Moist, Normal Exam - Respiratory Exam Respiratory Exam: Clear to Ausculation Bilateral, NORMAL BREATHING PATTERN - Cardiovascular Exam Cardiovascular Exam: REGULAR RHYTHM, +S1, +S2 - GI/Abdominal Exam GI & Abdominal Exam: Soft, Normal Bowel Sounds - Rectal Exam Rectal Exam: NORMAL INSPECTION - Back Exam Back Exam: NORMAL INSPECTION - Neurological Exam Neurological Exam: Alert, Awake, CN II-XII Intact - Skin Skin Exam: Dry, Warm Assessment and Plan - Assessment and Plan (Free Text) Assessment: HTN controlled ECHO: Normal EF Stress test: Negative For ERCP today
[2017-04-05] MEDS ORDERED: Benzocaine/Menthol (Cepacol) Lozenge MT ONE (01:55)
[2017-04-05] MEDS: Piperacill/Tazo 2.25gm in Dex 2.25 GM/50 ML BAG IVPB SCH ×5 (02:00→20:16)
[2017-04-05] MEDS: Sodium Bicarbonate 8.4% 150 MEQ in Dextrose 5% In Water 1,000 ML IV SCH (02:20)
[2017-04-05] MEDS: metroNIDAZOLE IV 500 mg/100 ml 500 MG/100 ML BAG IVPB SCH ×3 (05:00→21:00)
--- NOTE | 2017-04-05 06:58 | CP.PCM.PN ---
<JuwanMelonie - Last Filed: 04/05/17 12:22> Subjective - Date & Time of Evaluation Date of Evaluation: 04/05/17 Time of Evaluation: 07:00 - Subjective Subjective: Medicine Note for Hospitalist Service- Dr. Zapata Patient was seen and examined at bedside. Patient reports a sore throat and some epigastric pain. Family was at bedside. With the assistance of the translating device - it was explained to the family what the ERCP was, its findings and the plan moving forward. We also discussed her renal function and how we are managing that. All questions answered. 12 system ROS performed and negative except where stated. Objective - Vital Signs/Intake and Output Vital Signs (last 24 hours): Temp Pulse Resp BP Pulse Ox 98.3 F 58 L 20 175/68 H 96 04/04/17 23:00 04/05/17 03:25 04/04/17 23:00 04/05/17 03:25 04/04/17 23:00 Intake and Output: 04/04/17 04/05/17 18:59 06:59 Intake Total 700 660 Output Total 2900 Balance 700 -2240 - Medications Medications: Current Medications Acetaminophen (Tylenol 325mg Tab) 650 mg PO Q6 PRN PRN Reason: Fever >100.4 F Last Admin: 04/03/17 17:24 Dose: 650 mg Clopidogrel Bisulfate (Plavix) 75 mg PO DAILY [facility] Last Admin: 04/01/17 11:58 Dose: Not Given Heparin Sodium (Porcine) (Heparin) 5,000 units SC Q12 [facility] Last Admin: 04/03/17 21:14 Dose: Not Given Piperacillin Sod/Tazobactam Sod (Zosyn 2.25 Gm Iv Premix) 2.25 gm in 50 mls @ 100 mls/hr IVPB Q6H [facility] Last Admin: 04/05/17 02:00 Dose: 100 mls/hr Metronidazole (Flagyl) 500 mg in 100 mls @ 100 mls/hr IVPB Q8H [facility] Last Admin: 04/05/17 05:00 Dose: 100 mls/hr Sodium Bicarbonate 150 meq/ (Dextrose) 1,150 mls @ 60 mls/hr IV .[id number] [facility] Last Admin: 04/05/17 02:20 Dose: Not Given Lactated Ringer's (Lactated Ringer's 500ml) 500 mls @ 75 mls/hr IV .Q6H40M [facility] Insulin Human Regular (Novolin R) 0 unit SC ACHS [facility] PRN Reason: Protocol Last Admin: 04/04/17 21:30 Dose: Not Given Lactobacillus Acidophilus (Bacid Acidophilus) 1 cap PO BID [facility] Last Admin: 04/04/17 20:19 Dose: 1 cap Nebivolol (Bystolic) 2.5 mg PO DAILY [facility] Last Admin: 04/04/17 12:46 Dose: Not Given Nifedipine (Procardia Xl) 90 mg PO DAILY [facility] Last Admin: 04/04/17 12:47 Dose: Not Given Ondansetron HCl (Zofran Inj) 4 mg IVP Q6H PRN PRN Reason: Nausea/Vomiting Last Admin: 04/03/17 21:09 Dose: 4 mg Pantoprazole Sodium (Protonix Inj) 40 mg IVP DAILY [facility] Last Admin: 03/31/17 09:11 Dose: 40 mg Topiramate (Topamax) 50 mg PO BID [facility] Last Admin: 04/04/17 18:40 Dose: 50 mg - Labs Labs: 04/04/17 07:30 04/04/17 16:52 PT 13.6 SECONDS (9.7-12.2) H 04/04/17 07:30 INR 1.2 04/04/17 07:30 - Additional Findings Additional findings: - Constitutional Appears: Non-toxic, No Acute Distress - Eye Exam Eye Exam: EOMI, PERRL - ENT Exam ENT Exam: Mucous Membranes Moist - Respiratory Exam Respiratory Exam: Clear to Ausculation Bilateral. absent: Rales, Rhonchi, Wheezes - Cardiovascular Exam Cardiovascular Exam: RRR, +S1, +S2 - GI/Abdominal Exam GI & Abdominal Exam: Soft, Normal Bowel Sounds. absent: Distended, Firm, Guarding, Rigid, Tenderness, Organomegaly - Extremities Exam Extremities Exam: Normal Inspection. absent: Pedal Edema - Neurological Exam Neurological Exam: Alert, Awake, Oriented x3 - Psychiatric Exam Psychiatric exam: Normal Affect, Normal Mood - Skin Skin Exam: Dry, Warm Assessment and Plan - Assessment and Plan (Free Text) Plan: Choledocolithiasis/biliary obstruction at distal CBD Hyperbilirubinemia Transaminitis * GI consulted - Dr. Naidu- help appreciated * AST/ALT: 307/290, Alk phos 866, T Bili: 2.6 * Hepatitis panel - negative * Normal findings on 03/30 CT scan regarding liver * 03/31 MRCP showed moderately to markedly dilated proximal common bile duct with large filling defect noted in the distal common bile duct, which could represent multiple choledocholithiasis (differential consideration includes less likely distal CBD neoplasm or stricture). Also noted [id number] intrahepatic biliary ductal dilatation, cirrhosis with findings suggestive of portal hypertension including splenomegaly and trace ascites, and 6.3 millimeter cyst at the pancreatic head. * Cardiology consulted - Dr. Corona- for cardio clearance and echo ordered for findings seen on CT abd/pelvis * S/P Stress Test: Stress test: Normal * ECHO: LVEF 55-62%, Moderate diastolic dysfunction. Grade 2 pseudonormal filling * Cardiac point of cleared for GI procedures (ERCP) * Cardiac Risk: Low to Intermediate * S/P ERCP with sphincterotomy, balloon dilation and biliary stent placement * will need Repeat ERCP with spyglass possibly sunday or sunday - arrangements will be made JADE with underlying CKD, Stage 4 * Nephrology consulted - Dr. Juárez - help appreciated - patient is established with this group * Not on dialysis * Baseline creatine 1-1.5 * On admission 2.2 * D5 NS with 150 MEQ Sodium Bicarb - started by Nephrology * Marie inserted * 04/05/17- nephro changed fluids D5 1/2 NS @ 100cc + NaBicarb 650mg PO TID Metabolic Acidosis Nephrology consulted - Dr. Juárez- help appreciated D5 NS with 150 MEQ Sodium Bicarb - started by Nephrology Anemia of Chronic Disease * Baseline hemoglobin 10 * On admission 9,now 9.6 will continue to monitor * Retic count 1.5 * Iron 23 * TIBC 259 * % Saturation 9 * Ferritin 103 HTN * Bystolic and nifedipine XL continued (home meds) * Lipid panel noted: Tri, Chol: 186, LDL: 97, HDL: 37 T2DM * Accuchecks * A1C- 5.1 * ISS- low Colitis Diarrhea - resolved * GI consulted -Dr. Naidu- carey appreciated * SIRS: Febrile, bandemia- high of 36 , lactate normal x 2 * Blood Cultures negative up to date * Stool culture: negative * Negative stool leukocytes * Hypocholemic Metabolic Acidosis - improving * F/U C Diff Imaging: * CT ab/pel: Mild colitis limited to the ascending colon, small pericardial effusion and cardiomegaly * Abdominal Obstructive Xray: Cardiomegaly. Mild bibasilar atelectasis. Cholecystectomy clips. Nonspecific bowel gas pattern. Meds: * Zosyn Q6H, Flagyl started 04/03/17 due to persistent diarrhea * Probiotics 2 hours prior to abx administration * Toradol, Morphine, Zofran PRN Prophylactic Measures * GI PPX: Protonix 40mg PO daily * DVT PPX: SCDs, Hep Q12 * PT EVAL DW Dr. Zapata, Melonie Echeverria DO, PGY-1 <Brad Zapata H - Last Filed: 04/05/17 12:28> Objective - Vital Signs/Intake and Output Vital Signs (last 24 hours): Temp Pulse Resp BP Pulse Ox 98.5 F 72 18 162/95 H 99 04/05/17 08:05 04/05/17 08:05 04/05/17 08:05 04/05/17 08:05 04/05/17 08:05 Intake and Output: 04/05/17 04/05/17 06:59 18:59 Intake Total 660 Output Total 2900 Balance -2240 - Medications Medications: Current Medications Acetaminophen (Tylenol 325mg Tab) 650 mg PO Q6 PRN PRN Reason: Fever >100.4 F Last Admin: 04/03/17 17:24 Dose: 650 mg Benzocaine/Menthol (Cepacol Sore Throat) 1 ramone MT Q4 PRN Heparin Sodium (Porcine) (Heparin) 5,000 units SC Q12 [facility] Last Admin: 04/03/17 21:14 Dose: Not Given Piperacillin Sod/Tazobactam Sod (Zosyn 2.25 Gm Iv Premix) 2.25 gm in 50 mls @ 100 mls/hr IVPB Q6H [facility] Last Admin: 04/05/17 08:00 Dose: Not Given Metronidazole (Flagyl) 500 mg in 100 mls @ 100 mls/hr IVPB Q8H [facility] Last Admin: 04/05/17 05:00 Dose: 100 mls/hr Dextrose/Sodium Chloride (Dextrose 5%/0.45% Ns 1000 Ml) 1,000 mls @ 100 mls/hr IV .Q10H [facility] Insulin Human Regular (Novolin R) 0 unit SC ACHS [facility] PRN Reason: Protocol Last Admin: 04/05/17 08:41 Dose: Not Given Lactobacillus Acidophilus (Bacid Acidophilus) 1 cap PO BID [facility] Last Admin: 04/05/17 11:15 Dose: 1 cap Nebivolol (Bystolic) 2.5 mg PO DAILY [facility] Last Admin: 04/05/17 11:15 Dose: 2.5 mg Nifedipine (Procardia Xl) 90 mg PO DAILY [facility] Last Admin: 04/05/17 11:15 Dose: 90 mg Ondansetron HCl (Zofran Inj) 4 mg IVP Q6H PRN PRN Reason: Nausea/Vomiting Last Admin: 04/03/17 21:09 Dose: 4 mg Pantoprazole Sodium (Protonix Inj) 40 mg IVP DAILY [facility] Last Admin: 03/31/17 09:11 Dose: 40 mg Sodium Bicarbonate (Sodium Bicarbonate Tab) 650 mg PO TID [facility] Topiramate (Topamax) 50 mg PO BID [facility] Last Admin: 04/05/17 11:15 Dose: 50 mg - Labs Labs: 04/05/17 11:31 04/04/17 16:52 PT 13.6 SECONDS (9.7-12.2) H 04/04/17 07:30 INR 1.2 04/04/17 07:30 Attending/Attestation - Attestation I have personally seen and examined this patient.: Yes I have fully participated in the care of the patient.: Yes I have reviewed all pertinent clinical information, including history, physical exam and plan: Yes Notes (Text): 04/05/17 12:27 Medical attending: Patient was seen and examined by me, agrees the above note by the medical claims manager. The patient had her extended family members in the room. Patient was okay with this. We used a computer translation service to help us communicate with the patient as well as the family members. As reported in the above note by the medical claims manager, the patient underwent ERCP yesterday. GI considering further intervention this coming Sunday/Sunday. When we saw her today she was awake alert and orientated 3. She is very cooperative as well as finding with the family members present at bedside. This is a complete change from the rapid response that occurred yesterday as she is coming back from ERCP. Will suspect that that was due to the anesthesia that was still present at that time. Also we explained to the patient as well as the patient's family members that were having to watch over her renal function as her creatinine is elevated. She has been on D5 with bicarbonate intravenous fluids at 60 mL an hour. We have to monitor her for fluid overload Thank you very much, Brad Zapata
--- NOTE | 2017-04-05 08:28 | CP.PCM.PN ---
<JoycarlohumbleJer - Last Filed: 04/05/17 08:25> Subjective - Date & Time of Evaluation Date of Evaluation: 04/05/17 Time of Evaluation: 06:50 - Subjective Subjective: PGY5 GI Fellow Progress Note Patient seen and examined bedside this morning. The patient states that she has sore throat following procedure which improved with cepacol lozenges. Patient was drowsy after ERCP and an CAFETERIA TABLE ATTENDANT was called for suspected AMS, though this rapidly improved. Currently, she denies any nausea, vomiting, abdominal pain. No fevers, chills. No events overnight. 12 system ROS performed and negative except where stated. Objective - Vital Signs/Intake and Output Vital Signs (last 24 hours): Temp Pulse Resp BP Pulse Ox 98.3 F 58 L 20 175/68 H 96 04/04/17 23:00 04/05/17 03:25 04/04/17 23:00 04/05/17 03:25 04/04/17 23:00 Intake and Output: 04/05/17 04/05/17 06:59 18:59 Intake Total 660 Output Total 2900 Balance -2240 - Medications Medications: Current Medications Acetaminophen (Tylenol 325mg Tab) 650 mg PO Q6 PRN PRN Reason: Fever >100.4 F Last Admin: 04/03/17 17:24 Dose: 650 mg Benzocaine/Menthol (Cepacol Sore Throat) 1 ramone MT PRN PRN PRN Reason: Sore Throat Clopidogrel Bisulfate (Plavix) 75 mg PO DAILY [facility] Last Admin: 04/01/17 11:58 Dose: Not Given Heparin Sodium (Porcine) (Heparin) 5,000 units SC Q12 [facility] Last Admin: 04/03/17 21:14 Dose: Not Given Piperacillin Sod/Tazobactam Sod (Zosyn 2.25 Gm Iv Premix) 2.25 gm in 50 mls @ 100 mls/hr IVPB Q6H [facility] Last Admin: 04/05/17 02:00 Dose: 100 mls/hr Metronidazole (Flagyl) 500 mg in 100 mls @ 100 mls/hr IVPB Q8H [facility] Last Admin: 04/05/17 05:00 Dose: 100 mls/hr Sodium Bicarbonate 150 meq/ (Dextrose) 1,150 mls @ 60 mls/hr IV .[id number] [facility] Last Admin: 04/05/17 02:20 Dose: Not Given Lactated Ringer's (Lactated Ringer's 500ml) 500 mls @ 75 mls/hr IV .Q6H40M [facility] Insulin Human Regular (Novolin R) 0 unit SC ACHS [facility] PRN Reason: Protocol Last Admin: 04/04/17 21:30 Dose: Not Given Lactobacillus Acidophilus (Bacid Acidophilus) 1 cap PO BID [facility] Last Admin: 04/04/17 20:19 Dose: 1 cap Nebivolol (Bystolic) 2.5 mg PO DAILY [facility] Last Admin: 04/04/17 12:46 Dose: Not Given Nifedipine (Procardia Xl) 90 mg PO DAILY [facility] Last Admin: 04/04/17 12:47 Dose: Not Given Ondansetron HCl (Zofran Inj) 4 mg IVP Q6H PRN PRN Reason: Nausea/Vomiting Last Admin: 04/03/17 21:09 Dose: 4 mg Pantoprazole Sodium (Protonix Inj) 40 mg IVP DAILY [facility] Last Admin: 03/31/17 09:11 Dose: 40 mg Topiramate (Topamax) 50 mg PO BID [facility] Last Admin: 04/04/17 18:40 Dose: 50 mg - Labs Labs: 04/04/17 07:30 04/04/17 16:52 PT 13.6 SECONDS (9.7-12.2) H 04/04/17 07:30 INR 1.2 04/04/17 07:30 - Constitutional Appears: Non-toxic - Eye Exam Eye Exam: EOMI, PERRL - ENT Exam ENT Exam: Mucous Membranes Moist - Respiratory Exam Respiratory Exam: Clear to Ausculation Bilateral. absent: Rales, Rhonchi, Wheezes - Cardiovascular Exam Cardiovascular Exam: RRR, +S1, +S2 - GI/Abdominal Exam GI & Abdominal Exam: Soft, Normal Bowel Sounds. absent: Distended, Firm, Guarding, Rigid, Tenderness, Organomegaly - Extremities Exam Extremities Exam: Normal Inspection. absent: Pedal Edema - Neurological Exam Neurological Exam: Alert, Awake, Oriented x3 - Psychiatric Exam Psychiatric exam: Normal Affect, Normal Mood - Skin Skin Exam: Dry, Warm Assessment and Plan - Assessment and Plan (Free Text) Assessment: Patient is a 76yo female with PMHx significant for CAD (on plavix), HTN, CKD, osteoporosis who presented with abdominal pain and jaundice. -Choledocolithiasis/biliary obstruction at distal CBD s/p ERCP with sphincterotomy, balloon dilation and biliary stent placement on 04/04/17 -Hyperbilirubinemia 2/ above -High anion gap metabolic acidosis -CKD with JADE Plan: -S/P ERCP with sphincterotomy, balloon dilation and biliary stent placement -Upon balloon sweep of patient's CBD, suspected stone could not be retrieved - differential for lesion does include impacted gallstone, stricture and malignancy -Recommend repeating ERCP with SpyGlass next week - patient would need to be off Plavix for procedure -OK to advance diet as tolerated -Plavix remains held at this time, last dose on 03/31 -Awaiting AM blood work -Check CA 19-9 and IgG4 -Cont empiric antibiotic therapy with Zosyn/Flagyl -Nephrology following for decline in kidney function <Adreil Hoskins - Last Filed: 04/05/17 13:19> Objective - Vital Signs/Intake and Output Vital Signs (last 24 hours): Temp Pulse Resp BP Pulse Ox 98.5 F 72 18 162/95 H 99 04/05/17 08:05 04/05/17 08:05 04/05/17 08:05 04/05/17 08:05 04/05/17 08:05 Intake and Output: 04/05/17 04/05/17 06:59 18:59 Intake Total 660 Output Total 2900 Balance -2240 - Medications Medications: Current Medications Acetaminophen (Tylenol 325mg Tab) 650 mg PO Q6 PRN PRN Reason: Fever >100.4 F Last Admin: 04/03/17 17:24 Dose: 650 mg Benzocaine/Menthol (Cepacol Sore Throat) 1 ramone MT Q4 PRN Heparin Sodium (Porcine) (Heparin) 5,000 units SC Q12 [facility] Last Admin: 04/03/17 21:14 Dose: Not Given Piperacillin Sod/Tazobactam Sod (Zosyn 2.25 Gm Iv Premix) 2.25 gm in 50 mls @ 100 mls/hr IVPB Q6H [facility] Last Admin: 04/05/17 08:00 Dose: Not Given Metronidazole (Flagyl) 500 mg in 100 mls @ 100 mls/hr IVPB Q8H [facility] Last Admin: 02/22/18 12:44 Dose: 100 mls/hr Dextrose/Sodium Chloride (Dextrose 5%/0.45% Ns 1000 Ml) 1,000 mls @ 100 mls/hr IV .Q10H [facility] Last Admin: 04/05/17 12:46 Dose: 100 mls/hr Insulin Human Regular (Novolin R) 0 unit SC ACHS [facility] PRN Reason: Protocol Last Admin: 04/05/17 13:09 Dose: Not Given Lactobacillus Acidophilus (Bacid Acidophilus) 1 cap PO BID [facility] Last Admin: 04/05/17 11:15 Dose: 1 cap Nebivolol (Bystolic) 2.5 mg PO DAILY [facility] Last Admin: 04/05/17 11:15 Dose: 2.5 mg Nifedipine (Procardia Xl) 90 mg PO DAILY [facility] Last Admin: 04/05/17 11:15 Dose: 90 mg Ondansetron HCl (Zofran Inj) 4 mg IVP Q6H PRN PRN Reason: Nausea/Vomiting Last Admin: 04/03/17 21:09 Dose: 4 mg Pantoprazole Sodium (Protonix Inj) 40 mg IVP DAILY [facility] Last Admin: 03/31/17 09:11 Dose: 40 mg Sodium Bicarbonate (Sodium Bicarbonate Tab) 650 mg PO TID [facility] Topiramate (Topamax) 50 mg PO BID [facility] Last Admin: 04/05/17 11:15 Dose: 50 mg - Labs Labs: 04/05/17 11:31 04/04/17 16:52 PT 13.6 SECONDS (9.7-12.2) H 04/04/17 07:30 INR 1.2 04/04/17 07:30 Attending/Attestation - Attestation I have personally seen and examined this patient.: Yes I have fully participated in the care of the patient.: Yes I have reviewed all pertinent clinical information, including history, physical exam and plan: Yes Notes (Text): 04/05/17 13:15 I have seen and examined patient with GI fellow. No acute events overnight, she endorses mild throat discomfort but otherwise denies abdominal pain, nausea , vomiting, diarrhea, fever/chills. Tolerating PO liquids without difficulty. CAD on plavix (held) HTN CKD Jaundice, biliary obstruction s/p ERCP yesterday with sphincterotomy and stent placement - Low sodium diet as tolerated - Awaiting biopsies from ERCP yesterday - LFTs trending down, continue to monitor - Obtain CA 19-9 - Continue with antibiotic therapy - Follow up renal recommendations - Patient would benefit from repeat ERCP with spyglass given inconclusive results on procedure from yesterday. Suggest performing procedure prior to patient leaving for [facility]. This can be arranged electively as outpatient next week with Dr. Naidu if patient agreeable. Will continue to monitor patient clinical course.
[2017-04-05] MEDS: (Novolin R) Insulin Human Regular 100 units/ml vial SC SCH ×4 (08:41→22:13)
--- NOTE | 2017-04-05 08:42 | RAD ---
Chest x-ray single frontal view History: Congestion. Comparison: 04/04/2017 Findings: Moderate venous congestion. Patchy bibasilar airspace opacities. Small bilateral pleural effusions. Cardiomegaly. Tortuous ectatic aorta. Calcification at the aortic knob. Biapical pleural thickening. Degenerative changes in the spine. Impression: Moderate venous congestion. Patchy bibasilar airspace opacities. Small bilateral pleural effusions. Cardiomegaly. Tortuous ectatic aorta. Calcification at the aortic knob. Biapical pleural thickening.
--- NOTE | 2017-04-05 10:11 | RAD ---
PROCEDURE: HISTORY: As above COMPARISON: None TECHNIQUE: Total fluoroscopic time utilized during the procedure: 103.7 seconds ; 0.82487 mGy cm 2 FINDINGS: Submitted images from the current procedure: 23 Please refer to the physician's notes performing the procedure. IMPRESSION: Less than 1 hour fluoroscopic time utilized during performance of the procedure
--- NOTE | 2017-04-05 10:42 | CP.PCM.PN ---
Subjective - Date & Time of Evaluation Date of Evaluation: 04/05/17 Time of Evaluation: 10:40 - Subjective Subjective: s/p sphincerotomy, biliary stent placement; stone not retrieved UO increased to 2500ml creat about same 3.3 no new n, v, f, chills not dyspneic Objective - Vital Signs/Intake and Output Vital Signs (last 24 hours): Temp Pulse Resp BP Pulse Ox 98.5 F 72 18 162/95 H 99 04/05/17 08:05 04/05/17 08:05 04/05/17 08:05 04/05/17 08:05 04/05/17 08:05 Intake and Output: 04/05/17 04/05/17 06:59 18:59 Intake Total 660 Output Total 2900 Balance -2240 - Medications Medications: Current Medications Acetaminophen (Tylenol 325mg Tab) 650 mg PO Q6 PRN PRN Reason: Fever >100.4 F Last Admin: 04/03/17 17:24 Dose: 650 mg Benzocaine/Menthol (Cepacol Sore Throat) 1 ramone MT Q4 PRN Heparin Sodium (Porcine) (Heparin) 5,000 units SC Q12 [facility] Last Admin: 04/03/17 21:14 Dose: Not Given Piperacillin Sod/Tazobactam Sod (Zosyn 2.25 Gm Iv Premix) 2.25 gm in 50 mls @ 100 mls/hr IVPB Q6H [facility] Last Admin: 04/05/17 02:00 Dose: 100 mls/hr Metronidazole (Flagyl) 500 mg in 100 mls @ 100 mls/hr IVPB Q8H [facility] Last Admin: 04/05/17 05:00 Dose: 100 mls/hr Sodium Bicarbonate 150 meq/ (Dextrose) 1,150 mls @ 60 mls/hr IV .[id number] [facility] Last Admin: 04/05/17 02:20 Dose: Not Given Insulin Human Regular (Novolin R) 0 unit SC ACHS [facility] PRN Reason: Protocol Last Admin: 04/05/17 08:41 Dose: Not Given Lactobacillus Acidophilus (Bacid Acidophilus) 1 cap PO BID [facility] Last Admin: 04/04/17 20:19 Dose: 1 cap Nebivolol (Bystolic) 2.5 mg PO DAILY [facility] Last Admin: 04/04/17 12:46 Dose: Not Given Nifedipine (Procardia Xl) 90 mg PO DAILY [facility] Last Admin: 04/04/17 12:47 Dose: Not Given Ondansetron HCl (Zofran Inj) 4 mg IVP Q6H PRN PRN Reason: Nausea/Vomiting Last Admin: 04/03/17 21:09 Dose: 4 mg Pantoprazole Sodium (Protonix Inj) 40 mg IVP DAILY [facility] Last Admin: 03/31/17 09:11 Dose: 40 mg Topiramate (Topamax) 50 mg PO BID [facility] Last Admin: 04/04/17 18:40 Dose: 50 mg - Labs Labs: 04/04/17 07:30 04/04/17 16:52 PT 13.6 SECONDS (9.7-12.2) H 04/04/17 07:30 INR 1.2 04/04/17 07:30 - Constitutional Appears: No Acute Distress, Chronically Ill - Head Exam Head Exam: ATRAUMATIC, NORMAL INSPECTION - Eye Exam Eye Exam: EOMI, Normal appearance - Neck Exam Neck Exam: Normal Inspection. absent: Tenderness - Respiratory Exam Respiratory Exam: Clear to Ausculation Bilateral, NORMAL BREATHING PATTERN - Cardiovascular Exam Cardiovascular Exam: REGULAR RHYTHM, +S1 - GI/Abdominal Exam GI & Abdominal Exam: Soft. absent: Tenderness - Extremities Exam Extremities Exam: Normal Inspection. absent: Tenderness - Neurological Exam Neurological Exam: Awake, CN II-XII Intact - Skin Skin Exam: Dry, Warm Assessment and Plan (1) Acute renal failure Status: Acute (2) Metabolic acidosis Status: Acute (3) Biliary obstruction Status: Acute - Assessment and Plan (Free Text) Plan: continue IV fluids change to oral nabicarb serial chemistries no need for ARCHITECTURE DRAFTER at this time
[2017-04-05] MEDS: Lactobacillus Acidophilus 500 MU Cap PO SCH ×2 (11:15→18:06)
[2017-04-05] MEDS: NIFEdipine 90 mg ER Tab PO SCH (11:15)
[2017-04-05 11:45] LABS: BASO % 0.4 % (0.0-2.0); EOS # 0.1 K/uL (0.0-0.7); EOS % 2.1 % (0.0-4.0); HEMOGLOBIN 9.6 g/dL (11.0-16.0); LYMPH # 1.9 K/uL (1.0-4.3); LYMPH % 30.4 % (20.0-40.0); MEAN CELL VOLUME 90.8 fL (81.0-99.0); MEAN CORPUSCULAR HEMOGLOBIN 30.4 pg (27.0-31.0); MEAN CORPUSCULAR HGB CONC 33.5 g/dL (33.0-37.0); MEAN PLATELET VOLUME 9.6 fL (7.2-11.7); MONO # 0.3 K/uL (0.0-0.8); MONO % 5.1 % (0.0-10.0); NEUT # 3.8 K/uL (1.8-7.0); NRBC % 0.1 % (0.0-2.0); RBC 3.16 Mil/uL (3.80-5.20); RED CELL DISTRIBUTION WIDTH 14.9 % (11.5-14.5)
[2017-04-05 11:47] LABS: WHITE BLOOD COUNT 6.2 K/uL (4.8-10.8)
[2017-04-05] MEDS: Dextrose 5%/0.45% NS 1,000 ML IV SCH ×2 (12:46→21:45)
[2017-04-05 14:51] LABS: ALB/GLOB RATIO 0.8 (1.0-2.1); CALCIUM 8.7 mg/dl (8.6-10.4)
--- NOTE | 2017-04-05 16:25 | CT ---
PROCEDURE: CT HEAD WITHOUT CONTRAST. HISTORY: assess for metastatic disease COMPARISON: None available. TECHNIQUE: Axial computed tomography images were obtained through the head/brain without intravenous contrast. Radiation dose: Total exam DLP = 906.70 mGy-cm. This CT exam was performed using one or more of the following dose reduction techniques: Automated exposure control, adjustment of the mA and/or kV according to patient size, and/or use of iterative reconstruction technique. FINDINGS: HEMORRHAGE: No intracranial hemorrhage. BRAIN: No mass effect or edema. Mild periventricular white matter lucency with patchy deep and subcortical lucency consistent with microvascular white matter ischemic change. No evidence of acute infarct. Several small old right basal ganglia lacunar infarcts. VENTRICLES: Unremarkable. No hydrocephalus. CALVARIUM: Unremarkable. PARANASAL SINUSES: Unremarkable as visualized. No significant inflammatory changes. MASTOID AIR CELLS: Unremarkable as visualized. No inflammatory changes. OTHER FINDINGS: None. IMPRESSION: No evidence of intracranial mass. Please note that evaluation for metastatic disease is limited in sensitivity in the absence of intravenous contrast administration.
--- NOTE | 2017-04-05 16:33 | CT ---
PROCEDURE: CT NECK WITHOUT CONTRAST HISTORY: please assess for metastatic spread of malignancy COMPARISON: None. TECHNIQUE: CT of the neck without intravenous contrast. Coronal and sagittal reformats generated. Radiation dose: DLP 287.72 mGy-cm This CT exam was performed using one or more of the following dose reduction techniques: Automated exposure control, adjustment of the mA and/or kV according to patient size, and/or use of iterative reconstruction technique. FINDINGS: NASOPHARYNX: Within normal limits. SUPRAHYOID NECK: There is no bulky mass in the oropharynx, oral cavity, parapharyngeal space and retropharyngeal space. INFRAHYOID NECK: There is no bulky mass in the larynx, hypopharynx, and supraglottic space. Vocal cords intact. MASS: Evaluation is limited in the absence of intravenous contrast, allowing for this no large bulky mass. GLANDS: Parotid and submandibular glands unremarkable. There is an enlarged multinodular thyroid gland with asymmetric enlargement of the right thyroid lobe and a dominant peripherally calcified 1.6 x 1.5 by 2.8 cm low density nodule in the right thyroid lobe. LYMPH NODES: No lymphadenopathy. CERVICAL SPINE: No fracture or focal lesion. Diffuse bone demineralization and multilevel degenerative changes. OTHER FINDINGS: None. IMPRESSION: Limited CT scan of the soft tissues of the nighthawk in the absence of intravenous contrast. Allowing for this, no bulky mass or pathologic lymphadenopathy. Enlarged multinodular thyroid gland with a dominant peripherally calcified nodule in the right thyroid lobe.
--- NOTE | 2017-04-05 16:48 | CT ---
PROCEDURE: CT Chest without contrast HISTORY: Please assess for metastatic disease COMPARISON: None. TECHNIQUE: Contiguous axial images were obtained through the chest without intravenous contrast enhancement. Sagittal and coronal reconstructions were performed. Radiation dose (DLP): 615.97 mGy-cm. This CT exam was performed using one or more of the following dose reduction techniques: Automated exposure control, adjustment of the mA and/or kV according to patient size, and/or use of iterative reconstruction technique. FINDINGS: LUNGS: No pulmonary infiltrate. Minimal bilateral lower lobe compressive atelectasis. 4 mm pulmonary nodule in anterior right upper lobe for which no follow-up is required. No other pulmonary mass. Punctate calcification within the atelectatic right lower lobe consistent with old calcified granuloma. MEDIASTINUM: Unremarkable thoracic aorta. No aneurysm. Mild cardiomegaly. Small pericardial effusion. Main pulmonary artery unremarkable. No vascular congestion. No lymphadenopathy. Coarse calcification within the right lobe of the thyroid. This should be correlated with thyroid ultrasound examination. PLEURA: Small right and trace left pleural effusion. No pneumothorax. BONES: No fracture. No destructive lesion. UPPER ABDOMEN: Nodular hepatic contour consistent with cirrhosis. Biliary stent noted. Nonspecific 11 mm rounded splenic mass. OTHER FINDINGS: None. IMPRESSION: No evidence of thoracic metastatic disease. Small right and trace left pleural effusion with minimal bilateral lower lobe compressive atelectasis. Mild cardiomegaly. And small pericardial effusion. Old granulomatous disease. Hepatic cirrhosis. Additional minor findings as above.
--- NOTE | 2017-04-05 18:22 | CP.PCM.CON ---
History of Present Illness - History of Present Illness History of Present Illness: Hepatobiliary surgery consult for Dr. Brian Lambert, PGY-1 Pt S & E at bedside. 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 Pt was originally admitted for diffuse abdominal pain, N & V. Denies any current N & V , sitting comfortably in bed eating solid food. Ab pain has resolved- was severe, constant, non radiating. Denies changes in bowel or bladder habits, recent unexplained wt loss, other complaints. Hospital work up included CT abw/mild colitis. T bili 2.6 (admission). Negative hepatitis panel MRCP -mod-markedly dilated prox CBD, large filling defect in distal CBD, mild- mod intraehepatic biliary ductal dilatation. GI consulted, performed ERCP with sphincterotomy w/plastic biliary stent placement, balloon dilitation, stone not retrieved on 04/04 Imaging of head/chest to R/O distant mets CA 19-9 JADE Cr 3.[address]0 [address] neck- limited CT of soft tissues, no bulky mass or pathologic lymphadenopathy , enlarged multinodular thyroid w/dominant peripherally calcified nodule in R thyroid lobe CT brain w/o contrast- negative for intracranial mass CT chest- no evidence of thoracic metastatic disease, hepatic cirrhosis EF>55% ALP 544 from 866 AST 56 from 307 ALT 61 from 290 PMH: HTN, DM, HTN, migraines, osteoporosis, RA, CKD PSH: Cholecystectomy, appendectomy, coronary stent x 4 All: Fish SH: Denies tobacco, ETOH or illicit drug use PMD: Mickey Suh Review of Systems - Review of Systems All systems: reviewed and no additional remarkable complaints except - Constitutional Constitutional: absent: Chills, Fever, Weight Loss - EENT Nose/Mouth/Throat: absent: Sore Throat - Cardiovascular Cardiovascular: absent: Chest Pain - Respiratory Respiratory: absent: Cough - Gastrointestinal Gastrointestinal: absent: Abdominal Pain, Constipation, Diarrhea, Nausea, Vomiting - Genitourinary Genitourinary: absent: Change in Urinary Stream - Integumentary Integumentary: absent: Rash - Psychiatric Psychiatric: absent: Change in Appetite Past Patient History - Infectious Disease Hx of Infectious Diseases: None - Past Medical History & Family History Past Medical History?: Yes - Past Social History Smoking Status: Never Smoked - CARDIAC Hx Cardiac Disorders: Yes (CAD, Coronary Stent) Hx Hypercholesterolemia: Yes Hx Hypertension: Yes - PULMONARY Hx Respiratory Disorders: No - NEUROLOGICAL Hx Migraine: Yes - HEENT Hx HEENT Problems: No - RENAL Hx Chronic Kidney Disease: No - ENDOCRINE/METABOLIC Hx Diabetes Mellitus Type 2: Yes - HEMATOLOGICAL/ONCOLOGICAL Hx Blood Transfusions: No Hx Blood Transfusion Reaction: No - INTEGUMENTARY Hx Dermatological Problems: No - MUSCULOSKELETAL/RHEUMATOLOGICAL Hx Arthritis: Yes - GASTROINTESTINAL Hx Gastrointestinal Disorders: No - GENITOURINARY/GYNECOLOGICAL Hx Genitourinary Disorders: No - PSYCHIATRIC Hx Substance Use: No - SURGICAL HISTORY Hx Appendectomy: Yes Hx Cholecystectomy: Yes Hx Coronary Stent: Yes (X4) - ANESTHESIA Hx Anesthesia: Yes Hx Anesthesia Reactions: Yes Hx Malignant Hyperthermia: No Meds Allergies/Adverse Reactions: Allergies Allergy/AdvReac Type Severity Reaction Status Date / Time ciprofloxacin [From Cipro] Allergy ANAPHYLAXIS Verified 03/30/17 12:01 ciprofloxacin HCl Allergy ANAPHYLAXIS Verified 03/30/17 12:01 [From Cipro] seafood Allergy ANAPHYLAXIS Uncoded 03/30/17 12:01 - Medications Medications: Current Medications Acetaminophen (Tylenol 325mg Tab) 650 mg PO Q6 PRN PRN Reason: Fever >100.4 F Last Admin: 04/03/17 17:24 Dose: 650 mg Benzocaine/Menthol (Cepacol Sore Throat) 1 ramone MT Q4 PRN Heparin Sodium (Porcine) (Heparin) 5,000 units SC Q12 [facility] Last Admin: 04/03/17 21:14 Dose: Not Given Piperacillin Sod/Tazobactam Sod (Zosyn 2.25 Gm Iv Premix) 2.25 gm in 50 mls @ 100 mls/hr IVPB Q6H [facility] Last Admin: 04/05/17 13:46 Dose: 100 mls/hr Metronidazole (Flagyl) 500 mg in 100 mls @ 100 mls/hr IVPB Q8H [facility] Last Admin: 04/05/17 12:44 Dose: 100 mls/hr Dextrose/Sodium Chloride (Dextrose 5%/0.45% Ns 1000 Ml) 1,000 mls @ 100 mls/hr IV .Q10H [facility] Last Admin: 04/05/17 12:46 Dose: 100 mls/hr Insulin Human Regular (Novolin R) 0 unit SC ACHS [facility]ESS[facility] PRN Reason: Protocol Last Admin: 04/05/17 17:30 Dose: Not Given Lactobacillus Acidophilus (Bacid Acidophilus) 1 cap PO BID [facility] Last Admin: 04/05/17 18:06 Dose: 1 cap Nebivolol (Bystolic) 2.5 mg PO DAILY [facility] Last Admin: 04/05/17 11:15 Dose: 2.5 mg Nifedipine (Procardia Xl) 90 mg PO DAILY [facility] Last Admin: 04/05/17 11:15 Dose: 90 mg Ondansetron HCl (Zofran Inj) 4 mg IVP Q6H PRN PRN Reason: Nausea/Vomiting Last Admin: 04/03/17 21:09 Dose: 4 mg Pantoprazole Sodium (Protonix Inj) 40 mg IVP DAILY [facility] Last Admin: 03/31/17 09:11 Dose: 40 mg Sodium Bicarbonate (Sodium Bicarbonate Tab) 650 mg PO TID [facility] Last Admin: 04/05/17 18:09 Dose: 650 mg Topiramate (Topamax) 50 mg PO BID [facility] Last Admin: 04/05/17 18:06 Dose: 50 mg Physical Exam - Constitutional Appears: Non-toxic, No Acute Distress - Head Exam Head Exam: ATRAUMATIC, NORMAL INSPECTION, NORMOCEPHALIC - Eye Exam Eye Exam: EOMI, Normal appearance - ENT Exam ENT Exam: Mucous Membranes Moist, Normal Exam - Neck Exam Neck exam: Positive for: Full Rom, Normal Inspection - Respiratory Exam Respiratory Exam: NORMAL BREATHING PATTERN - Cardiovascular Exam Cardiovascular Exam: REGULAR RHYTHM, +S1, +S2 - GI/Abdominal Exam GI & Abdominal Exam: Soft. absent: Distended, Firm, Guarding, Hernia, Rebound, Rigid, Tenderness - Extremities Exam Extremities exam: Positive for: normal inspection. Negative for: pedal edema - Neurological Exam Neurological exam: Alert, CN II-XII Intact, Oriented x3 - Psychiatric Exam Psychiatric exam: Normal Affect, Normal Mood - Skin Skin Exam: Dry, Intact, Normal Color, Warm Results - Vital Signs Recent Vital Signs: Last Vital Signs Temp 98.0 F 04/05/17 16:00 Pulse 55 L 04/05/17 16:00 Resp 20 04/05/17 16:00 BP 160/70 H 04/05/17 16:00 Pulse Ox 98 04/05/17 16:00 - Labs Result Diagrams: 04/05/17 11:31 04/05/17 11:31 Labs: Laboratory Results - last 24 hr 04/03/17 04/04/17 04/05/17 14:39 20:52 06:37 WBC RBC Hgb Hct MCV MCH MCHC RDW Plt Count MPV Neut % (Auto) Lymph % (Auto) Dundy % (Auto) Eos % (Auto) Baso % (Auto) Neut # (Auto) Lymph # (Auto) Dundy # (Auto) Eos # (Auto) Baso # (Auto) Sodium Potassium Chloride Carbon Dioxide Anion Gap BUN Creatinine Est GFR ( Amer) Est GFR (Non-Af Amer) POC Glucose (mg/dL) 106 91 Random Glucose Calcium Total Bilirubin AST ALT Alkaline Phosphatase Total Protein Albumin Globulin Albumin/Globulin Ratio CA 19-9 Antigen Urine Chloride 46 04/05/17 04/05/17 04/05/17 11:31 11:31 12:08 WBC 6.2 D RBC 3.16 L Hgb 9.6 L Hct 28.7 L MCV 90.8 MCH 30.4 MCHC 33.5 RDW 14.9 H Plt Count 216 MPV 9.6 Neut % (Auto) 62.0 Lymph % (Auto) 30.4 Dundy % (Auto) 5.1 Eos % (Auto) 2.1 Baso % (Auto) 0.4 Neut # (Auto) 3.8 Lymph # (Auto) 1.9 Dundy # (Auto) 0.3 Eos # (Auto) 0.1 Baso # (Auto) 0.0 Sodium 141 Potassium 4.2 Chloride 112 H Carbon Dioxide 16 L Anion Gap 17 BUN 18 H Creatinine 3.0 H Est GFR ( Amer) 18 Est GFR (Non-Af Amer) 15 POC Glucose (mg/dL) 111 H Random Glucose 93 Calcium 8.7 Total Bilirubin 2.0 H AST 56 H ALT 61 H Alkaline Phosphatase 544 H Total Protein 6.9 Albumin 3.0 L Globulin 3.9 Albumin/Globulin Ratio 0.8 L CA 19-9 Antigen 146 H Urine Chloride 04/05/17 17:17 WBC RBC Hgb Hct MCV MCH MCHC RDW Plt Count MPV Neut % (Auto) Lymph % (Auto) Dundy % (Auto) Eos % (Auto) Baso % (Auto) Neut # (Auto) Lymph # (Auto) Dundy # (Auto) Eos # (Auto) Baso # (Auto) Sodium Potassium Chloride Carbon Dioxide Anion Gap BUN Creatinine Est GFR ( Amer) Est GFR (Non-Af Amer) POC Glucose (mg/dL) 146 H Random Glucose Calcium Total Bilirubin AST ALT Alkaline Phosphatase Total Protein Albumin Globulin Albumin/Globulin Ratio CA 19-9 Antigen Urine Chloride Assessment & Plan - Assessment and Plan (Free Text) Assessment: 76F w/invasive adenocarcinoma of CBD stricture Plan: FU Pancreas protocol CT scan Further recs pending imaging/attending evaluation DW attending Petra, PGY-1 - Date & Time Date: 04/05/17 Time: 17:45
[2017-04-05] MEDS ORDERED: Iodixanol 320 MG/ML 100 ML BOTTLE IV ONE (19:01)
--- NOTE | 2017-04-05 20:50 | CT ---
EXAM: CT Abdomen Without Intravenous Contrast EXAM DATE/TIME: 04/05/2017 5:41 PM CLINICAL HISTORY: 76 years old, female; Pain; Abdominal pain; Epigastric; Additional info: Evaluation TECHNIQUE: Axial computed tomography images of the abdomen without intravenous contrast. All CT scans at this facility use one or more dose reduction techniques, viz.: automated exposure control; ma/kV adjustment per patient size (including targeted exams where dose is matched to indication; i.e. head); or iterative reconstruction technique. Coronal and sagittal reformatted images were created and reviewed. COMPARISON: CT - ABD PELVIS PO CONTRAST ONLY 2017-03-30 17:59 FINDINGS: Lower thorax: The heart is mildly enlarged. There is a pericardial effusion. There is a small hiatal hernia. There is a small right pleural effusion. There is no definite left effusion. There is airspace disease at the lung bases right greater than left. There is atelectasis and scarring at the lung bases. Liver: Hepatic contours are nodular. There is fatty infiltration of the liver. Liver isenlarged. Gallbladder and bile ducts: There is a biliary stent. There is pneumobilia. Origin of the common duct is mildly dilated with fluid and air. There is inflammation and edema in the mary hepatis adjacent to the common duct. The gallbladder is absent. Pancreas: Tail and body of the pancreas are atrophic. There is relative prominence of the pancreatic head. Distal pancreatic duct is mildly prominent 4.6 mm in diameter. No well-defined lesion cystic is seen in the pancreatic head.. There isfullness around the distal common duct. Small lesion cannot be excluded, image 55 series 5, image 56 series 4. This measures approximately 1.7 x 1.5 cm Spleen: There is a low attenuation lesion in the spleen not a simple cyst by CT criteria. There is an accessory spleen. Adrenals: Adrenals are unremarkable. Kidneys and ureters: There is a small left renal cyst. There is bilateral renal scarring.There is no pelvocaliectasis or ureterectasis. Stomach and bowel: Stomach is almost completely empty. Rotation is normal. There is no small bowel obstruction. Terminal ileum is unremarkable.There is no pericecal inflammation. There is scattered diverticulosis Intraperitoneal space: There is a small amount of free fluid in the pelvis. There is a small amount of fluid in the right flank adjacent to the inferior right lobe of the liver. There is no free air. Bones/joints: Bony structures are osteopenic. There are degenerative changes. Soft tissues: There is a small fat containing umbilical hernia. Vasculature: here are calcified phleboliths. There are vascular calcifications. Lymph nodes: unremarkable Tubes, lines and devices: Bladder is almost empty. There is a Marie catheter. There is air in the bladder. Other findings: Uterus and adnexal structures are unremarkable. IMPRESSION: Atrophy of the pancreatic body and tail with prominence of the pancreatic head, lesion surrounding/adjacent to the distal common duct cannot be excluded, endoscopic ultrasound may be helpful for further evaluation; enlarged cirrhotic liver with fatty infiltration; cholecystectomy; pneumobilia with biliary stent; inflammation and edema in the mary hepatis Additional nonemergent findings as described above.
[2017-04-06] MEDS: Piperacill/Tazo 2.25gm in Dex 2.25 GM/50 ML BAG IVPB SCH ×3 (01:10→13:13)
[2017-04-06] MEDS: metroNIDAZOLE IV 500 mg/100 ml 500 MG/100 ML BAG IVPB SCH ×3 (04:10→20:54)
[2017-04-06] MEDS: Dextrose 5%/0.45% NS 1,000 ML IV SCH ×2 (06:23→17:52)
--- NOTE | 2017-04-06 08:37 | RAD ---
HISTORY: monitor congestion COMPARISON: Chest x-ray performed 04/05/17 TECHNIQUE: Chest, one view. FINDINGS: Examination limited by habitus and patient obliquity. LUNGS: Mild pulmonary venous congestion. Mild patchy infiltrate, left upper lobe. PLEURA: No significant pleural effusion identified. No definite pneumothorax . CARDIOVASCULAR: Cardiomegaly. Atherosclerotic calcifications of an ectatic aorta. OSSEOUS STRUCTURES: Osseous demineralization. Degenerative changes. VISUALIZED UPPER ABDOMEN: Unremarkable. OTHER FINDINGS: None. IMPRESSION: Mild pulmonary venous congestion, decreased since prior study. Mild patchy infiltrate left upper lobe. Cardiomegaly.
[2017-04-06] MEDS: (Novolin R) Insulin Human Regular 100 units/ml vial SC SCH ×4 (08:47→22:00)
--- NOTE | 2017-04-06 09:04 | CP.PCM.PN ---
<Jer Tirado - Last Filed: 04/06/17 09:01> Subjective - Date & Time of Evaluation Date of Evaluation: 04/06/17 Time of Evaluation: 06:50 - Subjective Subjective: PGY5 GI Fellow Progress Note Patient seen and examined bedside this morning. The patient states she would like to eat more substantial food. Does have some minor RUQ discomfort. No other issues per patient. 12 system ROS performed and negative except where stated. Objective - Vital Signs/Intake and Output Vital Signs (last 24 hours): Temp Pulse Resp BP Pulse Ox 98.6 F 54 L 20 169/66 H 97 04/06/17 04:00 04/06/17 04:00 04/06/17 04:00 04/06/17 04:00 04/06/17 04:00 Intake and Output: 04/06/17 04/06/17 06:59 18:59 Intake Total 1950 Output Total 1800 Balance 150 - Medications Medications: Current Medications Acetaminophen (Tylenol 325mg Tab) 650 mg PO Q6 PRN PRN Reason: Fever >100.4 F Last Admin: 04/03/17 17:24 Dose: 650 mg Benzocaine/Menthol (Cepacol Sore Throat) 1 ramone MT Q4 PRN Heparin Sodium (Porcine) (Heparin) 5,000 units SC Q12 [facility] Last Admin: 04/03/17 21:14 Dose: Not Given Piperacillin Sod/Tazobactam Sod (Zosyn 2.25 Gm Iv Premix) 2.25 gm in 50 mls @ 100 mls/hr IVPB Q6H [facility] Last Admin: 04/06/17 01:10 Dose: 100 mls/hr Metronidazole (Flagyl) 500 mg in 100 mls @ 100 mls/hr IVPB Q8H [facility] Last Admin: 04/06/17 04:10 Dose: 100 mls/hr Dextrose/Sodium Chloride (Dextrose 5%/0.45% Ns 1000 Ml) 1,000 mls @ 100 mls/hr IV .Q10H [facility] Last Admin: 04/06/17 06:23 Dose: 100 mls/hr Insulin Human Regular (Novolin R) 0 unit SC ACHS [facility]ESS[facility] PRN Reason: Protocol Last Admin: 04/06/17 08:47 Dose: Not Given Lactobacillus Acidophilus (Bacid Acidophilus) 1 cap PO BID [facility] Last Admin: 04/05/17 18:06 Dose: 1 cap Nebivolol (Bystolic) 2.5 mg PO DAILY [facility] Last Admin: 04/05/17 11:15 Dose: 2.5 mg Nifedipine (Procardia Xl) 90 mg PO DAILY [facility] Last Admin: 04/05/17 11:15 Dose: 90 mg Ondansetron HCl (Zofran Inj) 4 mg IVP Q6H PRN PRN Reason: Nausea/Vomiting Last Admin: 04/03/17 21:09 Dose: 4 mg Pantoprazole Sodium (Protonix Inj) 40 mg IVP DAILY [facility] Last Admin: 03/31/17 09:11 Dose: 40 mg Sodium Bicarbonate (Sodium Bicarbonate Tab) 650 mg PO TID [facility] Last Admin: 04/05/17 18:09 Dose: 650 mg Topiramate (Topamax) 50 mg PO BID [facility] Last Admin: 04/05/17 18:06 Dose: 50 mg - Labs Labs: 04/05/17 11:31 04/05/17 11:31 PT 13.6 SECONDS (9.7-12.2) H 04/04/17 07:30 INR 1.2 04/04/17 07:30 - Constitutional Appears: Non-toxic, No Acute Distress - Eye Exam Eye Exam: EOMI, PERRL - ENT Exam ENT Exam: Mucous Membranes Moist - Respiratory Exam Respiratory Exam: Clear to Ausculation Bilateral. absent: Rales, Rhonchi, Wheezes - Cardiovascular Exam Cardiovascular Exam: RRR, +S1, +S2 - GI/Abdominal Exam GI & Abdominal Exam: Soft, Tenderness (minor RUQ), Normal Bowel Sounds. absent : Distended, Firm, Guarding, Rigid, Organomegaly - Extremities Exam Extremities Exam: Normal Inspection. absent: Pedal Edema - Neurological Exam Neurological Exam: Alert, Awake, Oriented x3 - Psychiatric Exam Psychiatric exam: Normal Affect, Normal Mood - Skin Skin Exam: Dry, Warm Assessment and Plan - Assessment and Plan (Free Text) Assessment: Patient is a 76yo female with PMHx significant for CAD (on plavix), HTN, CKD, osteoporosis who presented with abdominal pain and jaundice. -Cholangiocarcinoma s/p ERCP with sphincterotomy, dilation and biliary stent placement on 04/04/17 -High anion gap metabolic acidosis -CKD with JADE Plan: -Biopsies from ERCP c/w invasive adenocarcinoma (cholangiocarcinoma), moderately differentiated -CT head/chest/neck unremarkable for metastatic disease though studies are limited in the absence of IV contrast 2/2 CKD with JADE -LFTs downtrending yesterday, awaiting AM lab work -CA 19-9 noted to be elevated at 146 -IgG4 pending -Recommend biliary stent exchange with metal stent, possibly Sunday -Appreciate recommendations from Oncology (Emma) and Hepatobiliary surgery ( Marleen) -Nephrology following for ongoing kidney dysfunction -Diet as tolerated <Singh Naidu - Last Filed: 04/06/17 10:41> Objective - Vital Signs/Intake and Output Vital Signs (last 24 hours): Temp Pulse Resp BP Pulse Ox 98.6 F 54 L 20 169/66 H 97 04/06/17 04:00 04/06/17 04:00 04/06/17 04:00 04/06/17 04:00 04/06/17 04:00 Intake and Output: 04/06/17 04/06/17 06:59 18:59 Intake Total 1950 Output Total 1800 Balance 150 - Medications Medications: Current Medications Acetaminophen (Tylenol 325mg Tab) 650 mg PO Q6 PRN PRN Reason: Fever >100.4 F Last Admin: 04/03/17 17:24 Dose: 650 mg Benzocaine/Menthol (Cepacol Sore Throat) 1 ramone MT Q4 PRN Last Admin: 04/06/17 10:13 Dose: 1 ramone Heparin Sodium (Porcine) (Heparin) 5,000 units SC Q12 [facility] Last Admin: 04/03/17 21:14 Dose: Not Given Piperacillin Sod/Tazobactam Sod (Zosyn 2.25 Gm Iv Premix) 2.25 gm in 50 mls @ 100 mls/hr IVPB Q6H [facility] Last Admin: 04/06/17 10:14 Dose: 100 mls/hr Metronidazole (Flagyl) 500 mg in 100 mls @ 100 mls/hr IVPB Q8H [facility] Last Admin: 04/06/17 04:10 Dose: 100 mls/hr Dextrose/Sodium Chloride (Dextrose 5%/0.45% Ns 1000 Ml) 1,000 mls @ 100 mls/hr IV .Q10H [facility] Last Admin: 04/06/17 06:23 Dose: 100 mls/hr Insulin Human Regular (Novolin R) 0 unit SC ACHS JESS[facility] PRN Reason: Protocol Last Admin: 04/06/17 08:47 Dose: Not Given Lactobacillus Acidophilus (Bacid Acidophilus) 1 cap PO BID [facility] Last Admin: 04/06/17 10:13 Dose: 1 cap Nebivolol (Bystolic) 2.5 mg PO DAILY [facility] Last Admin: 04/06/17 10:13 Dose: 2.5 mg Nifedipine (Procardia Xl) 90 mg PO DAILY [facility] Last Admin: 04/06/17 10:13 Dose: 90 mg Ondansetron HCl (Zofran Inj) 4 mg IVP Q6H PRN PRN Reason: Nausea/Vomiting Last Admin: 04/03/17 21:09 Dose: 4 mg Pantoprazole Sodium (Protonix Inj) 40 mg IVP DAILY [facility] Last Admin: 03/31/17 09:11 Dose: 40 mg Sodium Bicarbonate (Sodium Bicarbonate Tab) 650 mg PO TID [facility] Last Admin: 04/06/17 10:13 Dose: 650 mg Topiramate (Topamax) 50 mg PO BID [facility] Last Admin: 04/06/17 10:13 Dose: 50 mg - Labs Labs: 04/05/17 11:31 04/05/17 11:31 PT 13.6 SECONDS (9.7-12.2) H 04/04/17 07:30 INR 1.2 04/04/17 07:30 Attending/Attestation - Attestation I have personally seen and examined this patient.: Yes I have fully participated in the care of the patient.: Yes I have reviewed all pertinent clinical information, including history, physical exam and plan: Yes Notes (Text): 04/06/17 10:39 76 year old female with h/o CHF, CAD, CKD, s/p prior cholecystectomy who presented with jaundice and abdominal pain found to have a distal CBD stricture with biopsies showing invasive adenocarcinoma suggestive of cholangiocarcinoma. Abdominal imaging also raises the possibility of cirrhosis and cholangiogram could be potentially consistent with PSC, although she doesn't have a known history of either of these or hepatic decompensation. Appreciate oncology and surgical evaluation. If she is not a surgical candidate, then she will need palliative metal stenting.
[2017-04-06] MEDS: Lactobacillus Acidophilus 500 MU Cap PO SCH ×2 (10:13→17:52)
[2017-04-06] MEDS: Benzocaine/Menthol (Cepacol) Lozenge MT PRN (10:13)
[2017-04-06] MEDS: NIFEdipine 90 mg ER Tab PO SCH (10:13)
[2017-04-06 11:41] LABS: BASO % 0.6 % (0.0-2.0); EOS # 0.2 K/uL (0.0-0.7); EOS % 2.5 % (0.0-4.0); HEMOGLOBIN 9.2 g/dL (11.0-16.0); LYMPH # 1.6 K/uL (1.0-4.3); LYMPH % 24.5 % (20.0-40.0); MEAN CORPUSCULAR HEMOGLOBIN 30.5 pg (27.0-31.0); MEAN CORPUSCULAR HGB CONC 33.6 g/dL (33.0-37.0); MEAN PLATELET VOLUME 9.6 fL (7.2-11.7); MONO # 0.3 K/uL (0.0-0.8); MONO % 5.4 % (0.0-10.0); NEUT # 4.3 K/uL (1.8-7.0); RBC 3.01 Mil/uL (3.80-5.20); WHITE BLOOD COUNT 6.4 K/uL (4.8-10.8)
[2017-04-06 12:01] LABS: ALB/GLOB RATIO 0.7 (1.0-2.1); CALCIUM 8.4 mg/dl (8.6-10.4); MAGNESIUM 1.9 mg/dL (1.6-2.3)
--- NOTE | 2017-04-06 12:10 | CP.PCM.PN ---
<Angela Echeverriaa - Last Filed: 04/06/17 14:19> Subjective - Date & Time of Evaluation Date of Evaluation: 04/06/17 Time of Evaluation: 09:00 - Subjective Subjective: Medicine Note for Hospitalist Service- Dr. Zapata Patient was seen and examined at bedside. Patient reports no abdominal pain, SOB , dyspnea on exertion, ambulating well and tolerating diet. Family was at bedside, all questions answered. 12 system ROS performed and negative except where stated. Objective - Vital Signs/Intake and Output Vital Signs (last 24 hours): Temp Pulse Resp BP Pulse Ox 98.6 F 54 L 20 169/66 H 97 04/06/17 04:00 04/06/17 04:00 04/06/17 04:00 04/06/17 04:00 04/06/17 04:00 Intake and Output: 04/06/17 04/06/17 06:59 18:59 Intake Total 1950 Output Total 1800 Balance 150 - Medications Medications: Current Medications Acetaminophen (Tylenol 325mg Tab) 650 mg PO Q6 PRN PRN Reason: Fever >100.4 F Last Admin: 04/03/17 17:24 Dose: 650 mg Benzocaine/Menthol (Cepacol Sore Throat) 1 ramone MT Q4 PRN Last Admin: 04/06/17 10:13 Dose: 1 ramone Heparin Sodium (Porcine) (Heparin) 5,000 units SC Q12 [facility] Last Admin: 04/03/17 21:14 Dose: Not Given Piperacillin Sod/Tazobactam Sod (Zosyn 2.25 Gm Iv Premix) 2.25 gm in 50 mls @ 100 mls/hr IVPB Q6H [facility] Last Admin: 04/06/17 10:14 Dose: 100 mls/hr Metronidazole (Flagyl) 500 mg in 100 mls @ 100 mls/hr IVPB Q8H [facility] Last Admin: 04/06/17 04:10 Dose: 100 mls/hr Dextrose/Sodium Chloride (Dextrose 5%/0.45% Ns 1000 Ml) 1,000 mls @ 100 mls/hr IV .Q10H [facility] Last Admin: 04/06/17 06:23 Dose: 100 mls/hr Insulin Human Regular (Novolin R) 0 unit SC ACHS [facility] PRN Reason: Protocol Last Admin: 04/06/17 11:42 Dose: Not Given Lactobacillus Acidophilus (Bacid Acidophilus) 1 cap PO BID [facility] Last Admin: 04/06/17 10:13 Dose: 1 cap Nebivolol (Bystolic) 2.5 mg PO DAILY [facility] Last Admin: 04/06/17 10:13 Dose: 2.5 mg Nifedipine (Procardia Xl) 90 mg PO DAILY [facility] Last Admin: 04/06/17 10:13 Dose: 90 mg Ondansetron HCl (Zofran Inj) 4 mg IVP Q6H PRN PRN Reason: Nausea/Vomiting Last Admin: 04/03/17 21:09 Dose: 4 mg Pantoprazole Sodium (Protonix Inj) 40 mg IVP DAILY [facility] Last Admin: 03/31/17 09:11 Dose: 40 mg Sodium Bicarbonate (Sodium Bicarbonate Tab) 650 mg PO TID [facility] Last Admin: 04/06/17 10:13 Dose: 650 mg Topiramate (Topamax) 50 mg PO BID [facility] Last Admin: 04/06/17 10:13 Dose: 50 mg - Labs Labs: 04/06/17 11:29 04/06/17 11:29 PT 13.6 SECONDS (9.7-12.2) H 04/04/17 07:30 INR 1.2 04/04/17 07:30 - Additional Findings Additional findings: - Constitutional Appears: Non-toxic, No Acute Distress - Eye Exam Eye Exam: EOMI, PERRL - ENT Exam ENT Exam: Mucous Membranes Moist - Respiratory Exam Respiratory Exam: Clear to Ausculation Bilateral. absent: Rales, Rhonchi, Wheezes - Cardiovascular Exam Cardiovascular Exam: RRR, +S1, +S2 - GI/Abdominal Exam GI & Abdominal Exam: Soft, Normal Bowel Sounds. absent: Distended, Firm, Guarding, Rigid, Tenderness, Organomegaly - Extremities Exam Extremities Exam: Normal Inspection. absent: Pedal Edema - Neurological Exam Neurological Exam: Alert, Awake, Oriented x3 - Psychiatric Exam Psychiatric exam: Normal Affect, Normal Mood - Skin Skin Exam: Dry, Warm Assessment and Plan - Assessment and Plan (Free Text) Plan: Cholangiocarcinoma s/p ERCP with sphincterotomy, dilation and biliary stent placement on 04/04/17 Heme/Onc consulted - Dr. Carter - help appreciated Surgery consulted - Dr. Hawley - hel appreciated Palliative consulted - As per Gisela- "Further goals of care to be discussed based on overall plan of care. If diagnosis seen as a terminal , patient may consider returning to her own country of [facility] CT head/chest/neck unremarkable for metastatic disease though studies are limited in the absence of IV contrast 2/2 CKD with JADE Biliary stent exchange with metal stent, possibly Sunday Choledocolithiasis/biliary obstruction at distal CBD Hyperbilirubinemia Transaminitis * GI consulted - Dr. Naidu- help appreciated * AST/ALT: 307/290, Alk phos 866, T Bili: 2.6 * Hepatitis panel - negative * Normal findings on 03/30 CT scan regarding liver * 03/31 MRCP showed moderately to markedly dilated proximal common bile duct with large filling defect noted in the distal common bile duct, which could represent multiple choledocholithiasis (differential consideration includes less likely distal CBD neoplasm or stricture). Also noted [id number] intrahepatic biliary ductal dilatation, cirrhosis with findings suggestive of portal hypertension including splenomegaly and trace ascites, and 6.3 millimeter cyst at the pancreatic head. * Cardiology consulted - Dr. Corona- for cardio clearance and echo ordered for findings seen on CT abd/pelvis * S/P Stress Test: Stress test: Normal * ECHO: LVEF 55-62%, Moderate diastolic dysfunction. Grade 2 pseudonormal filling * Cardiac point of cleared for GI procedures (ERCP) * Cardiac Risk: Low to Intermediate * S/P ERCP with sphincterotomy, balloon dilation and biliary stent placement * will need Repeat ERCP with spyglass possibly sunday or sunday - arrangements will be made JADE with underlying CKD, Stage 4 Metabolic Acidosis * Nephrology consulted - Dr. Juárez - help appreciated - patient is established with this group * Not on dialysis * Baseline creatine 1-1.5 * On admission 2.2 * D5 NS with 150 MEQ Sodium Bicarb - started by Nephrology * Marie inserted * 04/05/17- nephro changed fluids D5 1/2 NS @ 100cc + NaBicarb 650mg PO TID * Renal function improving - continue on fluids and NaBicarb tablets Anemia of Chronic Disease * Baseline hemoglobin 10 * Will continue to monitor * Retic count 1.5 * Iron 23 * TIBC 259 * % Saturation 9 * Ferritin 103 HTN * Bystolic and nifedipine XL continued (home meds) * Lipid panel noted: Tri, Chol: 186, LDL: 97, HDL: 37 T2DM * Accuchecks * A1C- 5.1 * ISS- low Colitis Diarrhea - resolved * GI consulted -Dr. Naidu- help appreciated * SIRS: Febrile, bandemia- high of 36 , lactate normal x 2 * Blood Cultures negative up to date * Stool culture: negative * Negative stool leukocytes * Hypocholemic Metabolic Acidosis - improving * F/U cdiff Imaging: * CT ab/pel: Mild colitis limited to the ascending colon, small pericardial effusion and cardiomegaly * Abdominal Obstructive Xray: Cardiomegaly. Mild bibasilar atelectasis. Cholecystectomy clips. Nonspecific bowel gas pattern. Meds: * Zosyn Q6H, Flagyl started 04/03/17 due to persistent diarrhea * Probiotics 2 hours prior to abx administration * Toradol, Morphine, Zofran PRN Prophylactic Measures * GI PPX: Protonix 40mg PO daily * DVT PPX: SCDs, Hep Q12 * PT EVAL: continue inpatient PT, no services upon discharge required DW Dr. Zapata, Melonie Echeverria DO, PGY-1 <Brad Zapata H - Last Filed: 04/06/17 15:18> Objective - Vital Signs/Intake and Output Vital Signs (last 24 hours): Temp Pulse Resp BP Pulse Ox 98.6 F 59 L 20 147/76 97 04/06/17 04:00 04/06/17 13:15 04/06/17 04:00 04/06/17 13:15 04/06/17 04:00 Intake and Output: 04/06/17 04/06/17 06:59 18:59 Intake Total 1950 1100 Output Total 1800 Balance 150 1100 - Medications Medications: Current Medications Acetaminophen (Tylenol 325mg Tab) 650 mg PO Q6 PRN PRN Reason: Fever >100.4 F Last Admin: 04/03/17 17:24 Dose: 650 mg Benzocaine/Menthol (Cepacol Sore Throat) 1 ramone MT Q4 PRN Last Admin: 04/06/17 10:13 Dose: 1 ramone Heparin Sodium (Porcine) (Heparin) 5,000 units SC Q12 [facility] Last Admin: 04/03/17 21:14 Dose: Not Given Piperacillin Sod/Tazobactam Sod (Zosyn 2.25 Gm Iv Premix) 2.25 gm in 50 mls @ 100 mls/hr IVPB Q6H [facility] Last Admin: 04/06/17 13:13 Dose: 100 mls/hr Metronidazole (Flagyl) 500 mg in 100 mls @ 100 mls/hr IVPB Q8H [facility] Last Admin: 04/06/17 12:48 Dose: 100 mls/hr Dextrose/Sodium Chloride (Dextrose 5%/0.45% Ns 1000 Ml) 1,000 mls @ 100 mls/hr IV .Q10H [facility] Last Admin: 04/06/17 06:23 Dose: 100 mls/hr Insulin Human Regular (Novolin R) 0 unit SC ACHS [facility] PRN Reason: Protocol Last Admin: 04/06/17 11:42 Dose: Not Given Lactobacillus Acidophilus (Bacid Acidophilus) 1 cap PO BID [facility] Last Admin: 04/06/17 10:13 Dose: 1 cap Nebivolol (Bystolic) 2.5 mg PO DAILY [facility] Last Admin: 04/06/17 10:13 Dose: 2.5 mg Nifedipine (Procardia Xl) 90 mg PO DAILY [facility] Last Admin: 04/06/17 10:13 Dose: 90 mg Ondansetron HCl (Zofran Inj) 4 mg IVP Q6H PRN PRN Reason: Nausea/Vomiting Last Admin: 04/03/17 21:09 Dose: 4 mg Pantoprazole Sodium (Protonix Inj) 40 mg IVP DAILY [facility] Last Admin: 03/31/17 09:11 Dose: 40 mg Sodium Bicarbonate (Sodium Bicarbonate Tab) 650 mg PO TID [facility] Last Admin: 04/06/17 13:13 Dose: 650 mg Topiramate (Topamax) 50 mg PO BID [facility] Last Admin: 04/06/17 10:13 Dose: 50 mg - Labs Labs: 04/06/17 11:29 04/06/17 11:29 PT 13.6 SECONDS (9.7-12.2) H 04/04/17 07:30 INR 1.2 04/04/17 07:30 Attending/Attestation - Attestation I have personally seen and examined this patient.: Yes I have fully participated in the care of the patient.: Yes I have reviewed all pertinent clinical information, including history, physical exam and plan: Yes Notes (Text): 04/06/17 15:18 Medical attending: Patient was seen and examined by me with the paramedical aide. We saw the patient together during rounds. Today she had other family members who we've never met before at bedside. We asked the patient if he was okay to discuss with them present and she gave the permission to. So like the previous day I leeann a diagram to help the family members understand what was happening. As mentioned yesterday of the patient's biopsy from your CBC came back showing invasive adenocarcinoma. She then underwent additional CT imaging of the pancreas, chest, as well as head and neck. There are plans for potential metal stent to be placed in near the area of the common bile duct stricture that was found. Her BUN and creatinine are decreasing. Her intravenous fluids was changed. She is now getting D5 half NS 100 mL an hour without bicarbonate. They changed over to sodium bicarbonate tablets Thank you very much, Brad Zapata
[2017-04-06] MEDS ORDERED: Potassium Chloride 20 mEq ER Tab PO ONE (12:30)
--- NOTE | 2017-04-06 12:52 | CP.PCM.CON ---
History of Present Illness - History of Present Illness History of Present Illness: Palliative consult requested by aminta HERNANDEZ for end of life care discussion Patient is a 76 yo lady admitted with diffuse abdominal pain radiating to lower back, since midnight. Patient denied fever/ chest pain. No similar symptoms in the past. Multiple diagnostic studies here at [facility] confirmed invasive cholangiocarcinoma , pancreatic cyst and liver cirhosis. Doctor Claudia PRICE consulted as well as Doctor Emma. The Medical team is awaiting on recommendations from Surgery side before any plan made. PMH: HTN, DM, osteoporosis, migraines Soc. Hx: , lives with family, from [place], 25 years in [facility] Fam. Hx: parents , no known significant medical Hx Review of Systems - Constitutional Constitutional: absent: As Per HPI, Anorexia, Chills, Daytime Sleepiness, Excessive Sweating, Fatigue, Fever, Frequent Falls, Headache, Increased Appetite , Lethargy, Malaise, Night Sweats, Snoring, Sleep Apnea, Weight Gain, Weight Loss, Weakness, Other - EENT Eyes: absent: As Per HPI, Blind Spots, Blurred Vision, Change in Vision, Decreased Night Vision, Diplopia, Discharge, Dry Eye, Exophthalmos, Floaters, Irritation, Itchy Eyes, Loss of Peripheral Vision, Pain, Photophobia, Requires Corrective Lenses, Sees Flashes, Spots in Vision, Tunnel Vision, Other Visual Disturbances, Loss of Vision, Other Ears: absent: As Per HPI, Decreased Hearing, Ear Discharge, Ear Pain, Tinnitus, Abnormal Hearing, Disequilibrium, Dizziness, Other Nose/Mouth/Throat: absent: As Per HPI, Epistaxis, Nasal Congestion, Nasal Discharge, Nasal Obstruction, Nasal Trauma, Nose Pain, Post Nasal Drip, Sinus Pain, Sinus Pressure, Bleeding Gums, Change in Voice, Dental Pain, Dry Mouth, Dysphagia, Halitosis, Hoarsness, Lip Swelling, Mouth Lesions, Mouth Pain, Odynophagia, Sore Throat, Throat Swelling, Tongue Swelling, Facial Pain, Neck Pain, Neck Mass, Other - Breasts Breasts: absent: As Per HPI, Change in Shape, Mass, Pain, Nipple Discharge, Nipple Inversion, Skin Changes, Swelling, Other - Cardiovascular Cardiovascular: absent: As Per HPI, Acrocyanosis, Chest Pain, Chest Pain at Rest , Chest Pain with Activity, Claudication, Diaphoresis, Dyspnea, Dyspnea on Exertion, Edema, Irregular Heart Rhythm, Pain Radiating to Arm/Neck/Jaw, Leg Edema, Leg Ulcers, Lightheadedness, Orthopnea, Palpitations, Paroxysmal Nocturnal Dyspnea, Pedal Edema, Radiating Pain, Rapid Heart Rate, Slow Heart Rate, Syncope, Other - Respiratory Respiratory: absent: As Per HPI, Cough, Dyspnea, Hemoptysis, Dyspnea on Exertion , Wheezing, Snoring, Stridor, Pain on Inspiration, Chest Congestion, Excessive Mucous Production, Change in Mucous Color, Pain with Coughing, Other - Gastrointestinal Gastrointestinal: Abdominal Pain - Genitourinary Genitourinary: absent: As Per HPI, Change in Urinary Stream, Difficulty Urinating, Dysuria, Flank Pain, Hematuria, Pyuria, Nocturia, Urinary Incontinence, Urinary Frequency, Urinary Hesitance, Urinary Urgency, Voiding Freq/Small Amts, Freq UTI, Hx Renal/Bladder Calculi, Hx /Renal Surgery, Bladder Distension, Other - Reproductive: Female Reproductive:Female: Post Menopausal - Menstruation Menstruation: Post Menopausal - Musculoskeletal Musculoskeletal: absent: As Per HPI, Abnormal Gait, Arthralgias, Atrophy, Back Pain, Deformity, Joint Swelling, Limited Range of Motion, Loss of Height, Muscle Cramps, Muscle Weakness, Myalgias, Neck Pain, Numbness, Radiating Pain into Limb, Stiffness, Tingling, Other - Integumentary Integumentary: absent: As Per HPI, Acne, Alopecia, Bleeding Lesions, Change in Hair, Change in Nails, Change in Pigmentation, Changing Lesions, Dry Skin, Erythema, Furuncle, Hirsutism, Lesions, New Lesions, Non-Healing Lesions, Photosensitivity, Pruritus, Rash, Skin Pain, Skin Ulcer, Sores, Striae, Swelling , Unusual Bruising, Wounds, Jaundice, Other - Neurological Neurological: absent: As Per HPI, Abnormal Gait, Abnormal Hearing, Abnormal Movements, Abnormal Speech, Behavioral Changes, Burning Sensations, Confusion, Convulsions, Disequilibrium, Dizziness, Numbness, Focal Weakness, Frequent Falls , Headaches, Lack of Coordination, Loss of Vision, Memory Loss, Paresthesias, Radicular Pain, Restless Legs, Sensory Deficit, Syncope, Tingling, Tremor, Vertigo, Weakness, Other Visual Disturbances, Other - Psychiatric Psychiatric: absent: As Per HPI, Abnormal Sleep Pattern, Anhedonia, Anxiety, Auditory Hallucinations, Behavioral Changes, Change in Appetite, Change in Libido, Confusion, Depression, Difficulty Concentrating, Hallucinations, Homicidal Ideation, Hopelessness, Irritability, Memory Loss, Mood Swings, Panic Attacks, Paranoia, Suicidal Ideation, Visual Hallucinations, Tactile Hallucinations, Other - Endocrine Endocrine: absent: As Per HPI, Change in Body Appearance, Change in Libido, Cold Intolorance, Deepening of Voice, Excessive Sweating, Fatigue, Flushing, Heat Intolorance, Increase in Ring/Shoe/Hat Size, Palpitations, Polydipsia, Polyphagia, Polyuria, Other - Hematologic/Lymphatic Hematologic: absent: As Per HPI, Easy Bleeding, Easy Bruising, Lymphadenopathy, Other Past Patient History - Infectious Disease Hx of Infectious Diseases: None - Past Medical History & Family History Past Medical History?: Yes - Past Social History Smoking Status: Never Smoked - CARDIAC Hx Cardiac Disorders: Yes (CAD, Coronary Stent) Hx Hypercholesterolemia: Yes Hx Hypertension: Yes - PULMONARY Hx Respiratory Disorders: No - NEUROLOGICAL Hx Migraine: Yes - HEENT Hx HEENT Problems: No - RENAL Hx Chronic Kidney Disease: No - ENDOCRINE/METABOLIC Hx Diabetes Mellitus Type 2: Yes - HEMATOLOGICAL/ONCOLOGICAL Hx Blood Transfusions: No Hx Blood Transfusion Reaction: No - INTEGUMENTARY Hx Dermatological Problems: No - MUSCULOSKELETAL/RHEUMATOLOGICAL Hx Arthritis: Yes - GASTROINTESTINAL Hx Gastrointestinal Disorders: No - GENITOURINARY/GYNECOLOGICAL Hx Genitourinary Disorders: No - PSYCHIATRIC Hx Substance Use: No - SURGICAL HISTORY Hx Appendectomy: Yes Hx Cholecystectomy: Yes Hx Coronary Stent: Yes (X4) - ANESTHESIA Hx Anesthesia: Yes Hx Anesthesia Reactions: Yes Hx Malignant Hyperthermia: No Meds Allergies/Adverse Reactions: Allergies Allergy/AdvReac Type Severity Reaction Status Date / Time ciprofloxacin [From Cipro] Allergy ANAPHYLAXIS Verified 03/30/17 12:01 ciprofloxacin HCl Allergy ANAPHYLAXIS Verified 03/30/17 12:01 [From Cipro] seafood Allergy ANAPHYLAXIS Uncoded 03/30/17 12:01 - Medications Medications: Current Medications Acetaminophen (Tylenol 325mg Tab) 650 mg PO Q6 PRN PRN Reason: Fever >100.4 F Last Admin: 04/03/17 17:24 Dose: 650 mg Benzocaine/Menthol (Cepacol Sore Throat) 1 ramone MT Q4 PRN Last Admin: 04/06/17 10:13 Dose: 1 ramone Heparin Sodium (Porcine) (Heparin) 5,000 units SC Q12 [facility] Last Admin: 04/03/17 21:14 Dose: Not Given Piperacillin Sod/Tazobactam Sod (Zosyn 2.25 Gm Iv Premix) 2.25 gm in 50 mls @ 100 mls/hr IVPB Q6H [facility] Last Admin: 04/06/17 10:14 Dose: 100 mls/hr Metronidazole (Flagyl) 500 mg in 100 mls @ 100 mls/hr IVPB Q8H [facility] Last Admin: 04/06/17 04:10 Dose: 100 mls/hr Dextrose/Sodium Chloride (Dextrose 5%/0.45% Ns 1000 Ml) 1,000 mls @ 100 mls/hr IV .Q10H [facility] Last Admin: 04/06/17 06:23 Dose: 100 mls/hr Insulin Human Regular (Novolin R) 0 unit SC ACHS [facility] PRN Reason: Protocol Last Admin: 04/06/17 11:42 Dose: Not Given Lactobacillus Acidophilus (Bacid Acidophilus) 1 cap PO BID [facility] Last Admin: 04/06/17 10:13 Dose: 1 cap Nebivolol (Bystolic) 2.5 mg PO DAILY [facility] Last Admin: 04/06/17 10:13 Dose: 2.5 mg Nifedipine (Procardia Xl) 90 mg PO DAILY [facility] Last Admin: 04/06/17 10:13 Dose: 90 mg Ondansetron HCl (Zofran Inj) 4 mg IVP Q6H PRN PRN Reason: Nausea/Vomiting Last Admin: 04/03/17 21:09 Dose: 4 mg Pantoprazole Sodium (Protonix Inj) 40 mg IVP DAILY [facility] Last Admin: 03/31/17 09:11 Dose: 40 mg Potassium Chloride (K-Dur 20 Meq Er Tab) 40 meq PO ONCE ONE Stop: 04/06/17 12:31 Sodium Bicarbonate (Sodium Bicarbonate Tab) 650 mg PO TID [facility] Last Admin: 04/06/17 10:13 Dose: 650 mg Topiramate (Topamax) 50 mg PO BID [facility] Last Admin: 04/06/17 10:13 Dose: 50 mg Physical Exam - Constitutional Appears: No Acute Distress - Head Exam Head Exam: ATRAUMATIC, NORMAL INSPECTION, NORMOCEPHALIC - Eye Exam Eye Exam: EOMI, Normal appearance, PERRL Pupil Exam: NORMAL ACCOMODATION, PERRL Additional comments: sclera jaundiced - ENT Exam ENT Exam: Mucous Membranes Moist, Normal Exam - Neck Exam Neck exam: Positive for: Normal Inspection - Respiratory Exam Respiratory Exam: Clear to Auscultation Bilateral, NORMAL BREATHING PATTERN - Cardiovascular Exam Cardiovascular Exam: Bradycardia, REGULAR RHYTHM - GI/Abdominal Exam GI & Abdominal Exam: Normal Bowel Sounds, Soft - Rectal Exam Rectal Exam: Deferred - Extremities Exam Extremities exam: Positive for: normal inspection - Back Exam Back exam: NORMAL INSPECTION - Neurological Exam Neurological exam: Alert, Oriented x3 - Psychiatric Exam Psychiatric exam: Normal Affect, Normal Mood - Skin Skin Exam: Normal Color, Warm Additional comments: jaundice Results - Vital Signs Recent Vital Signs: Last Vital Signs Temp 98.6 F 04/06/17 04:00 Pulse 54 L 04/06/17 04:00 Resp 20 04/06/17 04:00 BP 169/66 H 04/06/17 04:00 Pulse Ox 97 04/06/17 04:00 - Labs Result Diagrams: 04/06/17 11:29 04/06/17 11:29 Labs: Laboratory Results - last 24 hr 04/05/17 04/05/17 04/05/17 11:31 12:08 17:17 WBC RBC Hgb Hct MCV MCH MCHC RDW Plt Count MPV Neut % (Auto) Lymph % (Auto) [place] % (Auto) Eos % (Auto) Baso % (Auto) Neut # (Auto) Lymph # (Auto) [place] # (Auto) Eos # (Auto) Baso # (Auto) Sodium 141 Potassium 4.2 Chloride 112 H Carbon Dioxide 16 L Anion Gap 17 BUN 18 H Creatinine 3.0 H Est GFR ( Amer) 18 Est GFR (Non-Af Amer) 15 POC Glucose (mg/dL) 111 H 146 H Random Glucose 93 Calcium 8.7 Phosphorus Magnesium Total Bilirubin 2.0 H GGT AST 56 H ALT 61 H Alkaline Phosphatase 544 H Total Protein 6.9 Albumin 3.0 L Globulin 3.9 Albumin/Globulin Ratio 0.8 L Alpha Fetoprotein CA 19-9 Antigen 146 H 04/05/17 04/06/17 04/06/17 21:40 06:46 11:29 WBC 6.4 RBC 3.01 L Hgb 9.2 L Hct 27.4 L MCV 91.0 MCH 30.5 MCHC 33.6 RDW 15.0 H Plt Count 204 MPV 9.6 Neut % (Auto) 67.0 Lymph % (Auto) 24.5 [place] % (Auto) 5.4 Eos % (Auto) 2.5 Baso % (Auto) 0.6 Neut # (Auto) 4.3 Lymph # (Auto) 1.6 [place] # (Auto) 0.3 Eos # (Auto) 0.2 Baso # (Auto) 0.0 Sodium Potassium Chloride Carbon Dioxide Anion Gap BUN Creatinine Est GFR ( Amer) Est GFR (Non-Af Amer) POC Glucose (mg/dL) 93 129 H Random Glucose Calcium Phosphorus Magnesium Total Bilirubin GGT AST ALT Alkaline Phosphatase Total Protein Albumin Globulin Albumin/Globulin Ratio Alpha Fetoprotein CA 19-9 Antigen 04/06/17 04/06/17 04/06/17 11:29 11:29 11:29 WBC RBC Hgb Hct MCV MCH MCHC RDW Plt Count MPV Neut % (Auto) Lymph % (Auto) [place] % (Auto) Eos % (Auto) Baso % (Auto) Neut # (Auto) Lymph # (Auto) [place] # (Auto) Eos # (Auto) Baso # (Auto) Sodium 136 Potassium 3.4 L Chloride 109 H Carbon Dioxide 16 L Anion Gap 14 BUN 15 Creatinine 2.8 H Est GFR ( Amer) 20 Est GFR (Non-Af Amer) 16 POC Glucose (mg/dL) Random Glucose 158 H Calcium 8.4 L Phosphorus 3.3 Magnesium 1.9 Total Bilirubin 1.5 H GGT 1234 H AST 45 H ALT 47 Alkaline Phosphatase 471 H Total Protein 7.2 Albumin 3.0 L Globulin 4.2 H Albumin/Globulin Ratio 0.7 L Alpha Fetoprotein 2.5 CA 19-9 Antigen Assessment & Plan - Assessment and Plan (Free Text) Assessment: Palliative consult There is no Advance Directive on chart, PPS 80% I reviewed medical records, all diagnostic studies, examined and interviewed patient in the bed, translation provided. Patient is alert, oriented X 3 in no acute distress. Skin and sclera jaundiced, T Bili 1.5. Patient denies abdominal pain, nausea, food intolerance or nausea. Daughter and granddaughter at bed side. Breath sounds normal, no adventitious sounds. HR 54, rhythm regular, BP 169/66, O2Sat 97% RA. Abdomen soft, nontender, denies pain to RUQ.Ambulatory . Goals of care discussed with patient and family at bed side. Daughter Liv states being aware of patient diagnosed with cancer. Family was not sure where cancer was located , what was gall bladder and its function. I corrected their knowledge. Family was told that surgery may be an option . They wanted to know how soon Sx would take place. I reviewed available info with family and suggested that patient was still to be evaluated by the surgeon. We further discussed other options in case surgery was not advised or was not enough to cure the problem. Family admitted to be afraid to think in that way. Family turned to God asking for help. They further said, that patient may return to her home country of [facility] but only after all options here were exhausted. I discussed this patient's situation with Doctor Emma and Doctor Aminta. Impression * This is an elderly lady with newly diagnosed invasive,adenocarcinoma * Patient and family aware of diagnosis but with lack of knowledge related to it * Patient has no acute symptoms * Anticipatory anxiety among patient and family; prefer Sx to be done sooner if advised Plan * Reinforce teaching about the disease * Monitor for abdominal pain and food intolerance * Please make family aware if surgery will take place and when Further goals of care to be discussed based on overall plan of care. If diagnosis seen as a terminal , patient may consider returning to her own country of [facility]. Advance planing discussion 50 min.
--- NOTE | 2017-04-06 13:58 | CP.PCM.PN ---
Subjective - Date & Time of Evaluation Date of Evaluation: 04/06/17 Time of Evaluation: 13:56 - Subjective Subjective: Alert, NAD Events noted- bx results reviewed UO increased to 1800ml this AM creat decreasing slowly with IV fluids on oral bicarb might need metal biliary stent Objective - Vital Signs/Intake and Output Vital Signs (last 24 hours): Temp Pulse Resp BP Pulse Ox 98.6 F 54 L 20 169/66 H 97 04/06/17 04:00 04/06/17 04:00 04/06/17 04:00 04/06/17 04:00 04/06/17 04:00 Intake and Output: 04/06/17 04/06/17 06:59 18:59 Intake Total 1950 Output Total 1800 Balance 150 - Medications Medications: Current Medications Acetaminophen (Tylenol 325mg Tab) 650 mg PO Q6 PRN PRN Reason: Fever >100.4 F Last Admin: 04/03/17 17:24 Dose: 650 mg Benzocaine/Menthol (Cepacol Sore Throat) 1 ramone MT Q4 PRN Last Admin: 04/06/17 10:13 Dose: 1 ramone Heparin Sodium (Porcine) (Heparin) 5,000 units SC Q12 [facility] Last Admin: 04/03/17 21:14 Dose: Not Given Piperacillin Sod/Tazobactam Sod (Zosyn 2.25 Gm Iv Premix) 2.25 gm in 50 mls @ 100 mls/hr IVPB Q6H [facility] Last Admin: 04/06/17 13:13 Dose: 100 mls/hr Metronidazole (Flagyl) 500 mg in 100 mls @ 100 mls/hr IVPB Q8H [facility] Last Admin: 04/06/17 12:48 Dose: 100 mls/hr Dextrose/Sodium Chloride (Dextrose 5%/0.45% Ns 1000 Ml) 1,000 mls @ 100 mls/hr IV .Q10H [facility] Last Admin: 04/06/17 06:23 Dose: 100 mls/hr Insulin Human Regular (Novolin R) 0 unit SC ACHS [facility]ESS[facility] PRN Reason: Protocol Last Admin: 04/06/17 11:42 Dose: Not Given Lactobacillus Acidophilus (Bacid Acidophilus) 1 cap PO BID [facility] Last Admin: 04/06/17 10:13 Dose: 1 cap Nebivolol (Bystolic) 2.5 mg PO DAILY [facility] Last Admin: 04/06/17 10:13 Dose: 2.5 mg Nifedipine (Procardia Xl) 90 mg PO DAILY [facility] Last Admin: 04/06/17 10:13 Dose: 90 mg Ondansetron HCl (Zofran Inj) 4 mg IVP Q6H PRN PRN Reason: Nausea/Vomiting Last Admin: 04/03/17 21:09 Dose: 4 mg Pantoprazole Sodium (Protonix Inj) 40 mg IVP DAILY [facility] Last Admin: 03/31/17 09:11 Dose: 40 mg Sodium Bicarbonate (Sodium Bicarbonate Tab) 650 mg PO TID [facility] Last Admin: 04/06/17 13:13 Dose: 650 mg Topiramate (Topamax) 50 mg PO BID [facility] Last Admin: 04/06/17 10:13 Dose: 50 mg - Labs Labs: 04/06/17 11:29 04/06/17 11:29 PT 13.6 SECONDS (9.7-12.2) H 04/04/17 07:30 INR 1.2 04/04/17 07:30 - Constitutional Appears: No Acute Distress, Chronically Ill - Head Exam Head Exam: ATRAUMATIC, NORMAL INSPECTION - Eye Exam Eye Exam: EOMI, Scleral icterus - Neck Exam Neck Exam: Normal Inspection. absent: Tenderness - Respiratory Exam Respiratory Exam: Clear to Ausculation Bilateral, NORMAL BREATHING PATTERN - Cardiovascular Exam Cardiovascular Exam: REGULAR RHYTHM, +S1 - GI/Abdominal Exam GI & Abdominal Exam: Soft. absent: Tenderness - Extremities Exam Extremities Exam: Normal Inspection. absent: Tenderness - Neurological Exam Neurological Exam: Alert, CN II-XII Intact - Skin Skin Exam: Dry, Warm Assessment and Plan (1) Acute renal failure Status: Acute (2) Metabolic acidosis Status: Acute (3) Biliary obstruction Status: Acute - Assessment and Plan (Free Text) Plan: continue IV fluids serial chemistries await stent change
--- NOTE | 2017-04-06 15:27 | CP.PCM.PN ---
Subjective - Date & Time of Evaluation Date of Evaluation: 04/06/17 Time of Evaluation: 06:30 - Subjective Subjective: Hepatobiliary surgery consult for Dr. Brian Lambert, PGY-1 Pt S & E at bedside. Pt resting comfortably in bed. Denies N & V, F & C, abdominal pain. Tolerating diet. Objective - Vital Signs/Intake and Output Vital Signs (last 24 hours): Temp Pulse Resp BP Pulse Ox 98.6 F 59 L 20 147/76 97 04/06/17 04:00 04/06/17 13:15 04/06/17 04:00 04/06/17 13:15 04/06/17 04:00 Intake and Output: 04/06/17 04/06/17 06:59 18:59 Intake Total 1950 1100 Output Total 1800 Balance 150 1100 - Medications Medications: Current Medications Acetaminophen (Tylenol 325mg Tab) 650 mg PO Q6 PRN PRN Reason: Fever >100.4 F Last Admin: 04/03/17 17:24 Dose: 650 mg Benzocaine/Menthol (Cepacol Sore Throat) 1 ramone MT Q4 PRN Last Admin: 04/06/17 10:13 Dose: 1 ramone Heparin Sodium (Porcine) (Heparin) 5,000 units SC Q12 [facility] Last Admin: 04/03/17 21:14 Dose: Not Given Piperacillin Sod/Tazobactam Sod (Zosyn 2.25 Gm Iv Premix) 2.25 gm in 50 mls @ 100 mls/hr IVPB Q6H [facility] Last Admin: 04/06/17 13:13 Dose: 100 mls/hr Metronidazole (Flagyl) 500 mg in 100 mls @ 100 mls/hr IVPB Q8H [facility] Last Admin: 04/06/17 12:48 Dose: 100 mls/hr Dextrose/Sodium Chloride (Dextrose 5%/0.45% Ns 1000 Ml) 1,000 mls @ 100 mls/hr IV .Q10H [facility] Last Admin: 04/06/17 06:23 Dose: 100 mls/hr Insulin Human Regular (Novolin R) 0 unit SC ACHS JESS[facility] PRN Reason: Protocol Last Admin: 04/06/17 11:42 Dose: Not Given Lactobacillus Acidophilus (Bacid Acidophilus) 1 cap PO BID [facility] Last Admin: 04/06/17 10:13 Dose: 1 cap Nebivolol (Bystolic) 2.5 mg PO DAILY [facility] Last Admin: 04/06/17 10:13 Dose: 2.5 mg Nifedipine (Procardia Xl) 90 mg PO DAILY [facility] Last Admin: 04/06/17 10:13 Dose: 90 mg Ondansetron HCl (Zofran Inj) 4 mg IVP Q6H PRN PRN Reason: Nausea/Vomiting Last Admin: 04/03/17 21:09 Dose: 4 mg Pantoprazole Sodium (Protonix Inj) 40 mg IVP DAILY [facility] Last Admin: 03/31/17 09:11 Dose: 40 mg Sodium Bicarbonate (Sodium Bicarbonate Tab) 650 mg PO TID [facility] Last Admin: 04/06/17 13:13 Dose: 650 mg Topiramate (Topamax) 50 mg PO BID [facility] Last Admin: 04/06/17 10:13 Dose: 50 mg - Labs Labs: 04/06/17 11:29 04/06/17 11:29 PT 13.6 SECONDS (9.7-12.2) H 04/04/17 07:30 INR 1.2 04/04/17 07:30 - Constitutional Appears: Non-toxic, No Acute Distress - Head Exam Head Exam: ATRAUMATIC, NORMAL INSPECTION, NORMOCEPHALIC - Eye Exam Eye Exam: EOMI, Normal appearance - ENT Exam ENT Exam: Mucous Membranes Moist, Normal Exam - Neck Exam Neck Exam: Full ROM, Normal Inspection - Respiratory Exam Respiratory Exam: NORMAL BREATHING PATTERN - Cardiovascular Exam Cardiovascular Exam: REGULAR RHYTHM, +S1, +S2 - GI/Abdominal Exam GI & Abdominal Exam: Soft. absent: Distended (obese), Firm, Guarding, Tenderness - Extremities Exam Extremities Exam: Normal Inspection - Neurological Exam Neurological Exam: Alert, Awake, CN II-XII Intact, Oriented x3 - Psychiatric Exam Psychiatric exam: Normal Affect, Normal Mood - Skin Skin Exam: Dry, Intact, Normal Color Assessment and Plan - Assessment and Plan (Free Text) Assessment: 76F w/invasive adenocarcinoma of CBD stricture Plan: Pancreas protocol CT scan - Atrophy of the pancreatic body and tail with prominence of the pancreatic head, lesion surrounding/adjacent to the distal common duct cannot be excluded, endoscopic ultrasound may be helpful for further evaluation; enlarged cirrhotic liver with fatty infiltration; cholecystectomy; pneumobilia with biliary stent; inflammation and edema in the mary hepatis Further recs per attending evaluation DW attending Petra, PGY-1
--- NOTE | 2017-04-06 22:14 | CP.PCM.CON ---
History of Present Illness - History of Present Illness History of Present Illness: 76 year old female with a history of CAD, CHF, CKD, admitted with jaundice and found to have a CBD stricture s/p biopsy confirming adenocarcinoma. Per the patients family, she has been experiencing worsening abdominal pain and fatigue. She has maintained a good appetite but has lost some weight. Imaging negative for distant metastasis but does show liver cirrhosis. Past medical history: CAD, CHF, CKD Past surgical history: Cholecystectomy Family history: Denies hematologic and oncologic problems Social history: Denies tobacco, alcohol, and illicit drug use. Allergies: Cipro Review of systems: All remaining review of systems including HEENT, cardiovascular, respiratory, gastrointestinal, genitourinary, musculoskeletal, dermatologic, neurologic, and psychiatric are negative unless mentioned in the HPI. Past Patient History - Infectious Disease Hx of Infectious Diseases: None - Past Medical History & Family History Past Medical History?: Yes - Past Social History Smoking Status: Never Smoked - CARDIAC Hx Cardiac Disorders: Yes (CAD, Coronary Stent) Hx Hypercholesterolemia: Yes Hx Hypertension: Yes - PULMONARY Hx Respiratory Disorders: No - NEUROLOGICAL Hx Migraine: Yes - HEENT Hx HEENT Problems: No - RENAL Hx Chronic Kidney Disease: No - ENDOCRINE/METABOLIC Hx Diabetes Mellitus Type 2: Yes - HEMATOLOGICAL/ONCOLOGICAL Hx Blood Transfusions: No Hx Blood Transfusion Reaction: No - INTEGUMENTARY Hx Dermatological Problems: No - MUSCULOSKELETAL/RHEUMATOLOGICAL Hx Arthritis: Yes - GASTROINTESTINAL Hx Gastrointestinal Disorders: No - GENITOURINARY/GYNECOLOGICAL Hx Genitourinary Disorders: No - PSYCHIATRIC Hx Substance Use: No - SURGICAL HISTORY Hx Appendectomy: Yes Hx Cholecystectomy: Yes Hx Coronary Stent: Yes (X4) - ANESTHESIA Hx Anesthesia: Yes Hx Anesthesia Reactions: Yes Hx Malignant Hyperthermia: No Meds Allergies/Adverse Reactions: Allergies Allergy/AdvReac Type Severity Reaction Status Date / Time ciprofloxacin [From Cipro] Allergy ANAPHYLAXIS Verified 03/30/17 12:01 ciprofloxacin HCl Allergy ANAPHYLAXIS Verified 03/30/17 12:01 [From Cipro] seafood Allergy ANAPHYLAXIS Uncoded 03/30/17 12:01 - Medications Medications: Current Medications Acetaminophen (Tylenol 325mg Tab) 650 mg PO Q6 PRN PRN Reason: Fever >100.4 F Last Admin: 04/03/17 17:24 Dose: 650 mg Benzocaine/Menthol (Cepacol Sore Throat) 1 ramone MT Q4 PRN Last Admin: 04/06/17 10:13 Dose: 1 ramone Heparin Sodium (Porcine) (Heparin) 5,000 units SC Q12 [facility] Last Admin: 04/03/17 21:14 Dose: Not Given Metronidazole (Flagyl) 500 mg in 100 mls @ 100 mls/hr IVPB Q8H [facility] Last Admin: 04/06/17 20:54 Dose: 100 mls/hr Dextrose/Sodium Chloride (Dextrose 5%/0.45% Ns 1000 Ml) 1,000 mls @ 100 mls/hr IV .Q10H [facility] Last Admin: 04/06/17 17:52 Dose: 100 mls/hr Piperacillin Sod/Tazobactam (Sod 2.25 gm/ Sodium Chloride) 100 mls @ 100 mls/ hr IV Q6H [facility] Last Admin: 04/06/17 17:59 Dose: 100 mls/hr Insulin Human Regular (Novolin R) 0 unit SC ACHS [facility] PRN Reason: Protocol Last Admin: 04/06/17 17:10 Dose: Not Given Lactobacillus Acidophilus (Bacid Acidophilus) 1 cap PO BID [facility] Last Admin: 04/06/17 17:52 Dose: 1 cap Nebivolol (Bystolic) 2.5 mg PO DAILY [facility] Last Admin: 04/06/17 10:13 Dose: 2.5 mg Nifedipine (Procardia Xl) 90 mg PO DAILY [facility] Last Admin: 04/06/17 10:13 Dose: 90 mg Ondansetron HCl (Zofran Inj) 4 mg IVP Q6H PRN PRN Reason: Nausea/Vomiting Last Admin: 04/03/17 21:09 Dose: 4 mg Pantoprazole Sodium (Protonix Inj) 40 mg IVP DAILY [facility] Last Admin: 03/31/17 09:11 Dose: 40 mg Sodium Bicarbonate (Sodium Bicarbonate Tab) 650 mg PO TID [facility] Last Admin: 04/06/17 17:53 Dose: 650 mg Topiramate (Topamax) 50 mg PO BID [facility] Last Admin: 04/06/17 20:53 Dose: 50 mg Physical Exam - Head Exam Head Exam: ATRAUMATIC - Eye Exam Eye Exam: Normal appearance - ENT Exam ENT Exam: Mucous Membranes Dry - Respiratory Exam Respiratory Exam: NORMAL BREATHING PATTERN - Cardiovascular Exam Cardiovascular Exam: +S1, +S2 - GI/Abdominal Exam GI & Abdominal Exam: Normal Bowel Sounds Results - Vital Signs Recent Vital Signs: Last Vital Signs Temp 97.9 F 04/06/17 16:00 Pulse 56 L 04/06/17 16:00 Resp 20 04/06/17 16:00 BP 139/72 04/06/17 16:00 Pulse Ox 98 04/06/17 16:00 - Labs Result Diagrams: 04/06/17 11:29 04/06/17 11:29 Labs: Laboratory Results - last 24 hr 04/06/17 04/06/17 04/06/17 06:46 11:27 11:29 WBC 6.4 RBC 3.01 L Hgb 9.2 L Hct 27.4 L MCV 91.0 MCH 30.5 MCHC 33.6 RDW 15.0 H Plt Count 204 MPV 9.6 Neut % (Auto) 67.0 Lymph % (Auto) 24.5 [place] % (Auto) 5.4 Eos % (Auto) 2.5 Baso % (Auto) 0.6 Neut # (Auto) 4.3 Lymph # (Auto) 1.6 [place] # (Auto) 0.3 Eos # (Auto) 0.2 Baso # (Auto) 0.0 Sodium Potassium Chloride Carbon Dioxide Anion Gap BUN Creatinine Est GFR ( Amer) Est GFR (Non-Af Amer) POC Glucose (mg/dL) 129 H 125 H Random Glucose Calcium Phosphorus Magnesium Total Bilirubin GGT AST ALT Alkaline Phosphatase Total Protein Albumin Globulin Albumin/Globulin Ratio Alpha Fetoprotein C. difficile Ag & Toxin 04/06/17 04/06/17 04/06/17 11:29 11:29 11:29 WBC RBC Hgb Hct MCV MCH MCHC RDW Plt Count MPV Neut % (Auto) Lymph % (Auto) [place] % (Auto) Eos % (Auto) Baso % (Auto) Neut # (Auto) Lymph # (Auto) [place] # (Auto) Eos # (Auto) Baso # (Auto) Sodium 136 Potassium 3.4 L Chloride 109 H Carbon Dioxide 16 L Anion Gap 14 BUN 15 Creatinine 2.8 H Est GFR ( Amer) 20 Est GFR (Non-Af Amer) 16 POC Glucose (mg/dL) Random Glucose 158 H Calcium 8.4 L Phosphorus 3.3 Magnesium 1.9 Total Bilirubin 1.5 H GGT 1234 H AST 45 H ALT 47 Alkaline Phosphatase 471 H Total Protein 7.2 Albumin 3.0 L Globulin 4.2 H Albumin/Globulin Ratio 0.7 L Alpha Fetoprotein 2.5 C. difficile Ag & Toxin 04/06/17 04/06/17 04/06/17 16:17 19:25 20:57 WBC RBC Hgb Hct MCV MCH MCHC RDW Plt Count MPV Neut % (Auto) Lymph % (Auto) [place] % (Auto) Eos % (Auto) Baso % (Auto) Neut # (Auto) Lymph # (Auto) [place] # (Auto) Eos # (Auto) Baso # (Auto) Sodium Potassium Chloride Carbon Dioxide Anion Gap BUN Creatinine Est GFR ( Amer) Est GFR (Non-Af Amer) POC Glucose (mg/dL) 118 H 145 H Random Glucose Calcium Phosphorus Magnesium Total Bilirubin GGT AST ALT Alkaline Phosphatase Total Protein Albumin Globulin Albumin/Globulin Ratio Alpha Fetoprotein C. difficile Ag & Toxin Negative Assessment & Plan (1) Cholangiocarcinoma Assessment and Plan: will add CA 19-9 and AFP hepatibiliary evaluation, no evidence of distant metastasis further treatment recs based on surgical evaluation stent placement per GI Status: Acute (2) Anemia Assessment and Plan: likely chronic disease from malignancy Thank you for this interesting consult. Status: Acute
--- NOTE | 2017-04-07 03:39 | CP.PCM.PN ---
<Krissy Ayalahira E - Last Filed: 04/07/17 03:55> Subjective - Date & Time of Evaluation Date of Evaluation: 04/07/17 Time of Evaluation: 01:10 - Subjective Subjective: Medicine Progress note ( Dr. Zapata's service) Patient was seen and examined at bedside. Patient reports that she is doing well and has no acute complaints or issues. Patient denies chest pain, palpitations, SOB, nausea, vomiting, abdominal pain, diarrhea and constipation. Objective - Vital Signs/Intake and Output Vital Signs (last 24 hours): Temp Pulse Resp BP Pulse Ox 98.5 F 65 20 172/69 H 99 04/06/17 23:40 04/06/17 23:40 04/06/17 23:40 04/06/17 23:40 04/06/17 23:40 Intake and Output: 04/06/17 04/07/17 18:59 06:59 Intake Total 1100 1200 Output Total 500 350 Balance 600 850 - Medications Medications: Current Medications Acetaminophen (Tylenol 325mg Tab) 650 mg PO Q6 PRN PRN Reason: Fever >100.4 F Last Admin: 04/03/17 17:24 Dose: 650 mg Benzocaine/Menthol (Cepacol Sore Throat) 1 ramone MT Q4 PRN Last Admin: 04/06/17 10:13 Dose: 1 ramone Heparin Sodium (Porcine) (Heparin) 5,000 units SC Q12 [facility] Last Admin: 04/03/17 21:14 Dose: Not Given Metronidazole (Flagyl) 500 mg in 100 mls @ 100 mls/hr IVPB Q8H [facility] Last Admin: 04/06/17 20:54 Dose: 100 mls/hr Dextrose/Sodium Chloride (Dextrose 5%/0.45% Ns 1000 Ml) 1,000 mls @ 100 mls/hr IV .Q10H [facility] Last Admin: 04/06/17 17:52 Dose: 100 mls/hr Piperacillin Sod/Tazobactam (Sod 2.25 gm/ Sodium Chloride) 100 mls @ 100 mls/ hr IV Q6H [facility] Last Admin: 04/07/17 00:03 Dose: 100 mls/hr Insulin Human Regular (Novolin R) 0 unit SC ACHS [facility] PRN Reason: Protocol Last Admin: 04/06/17 22:00 Dose: Not Given Lactobacillus Acidophilus (Bacid Acidophilus) 1 cap PO BID [facility] Last Admin: 04/06/17 17:52 Dose: 1 cap Nebivolol (Bystolic) 2.5 mg PO DAILY [facility] Last Admin: 04/06/17 10:13 Dose: 2.5 mg Nifedipine (Procardia Xl) 90 mg PO DAILY [facility] Last Admin: 04/06/17 10:13 Dose: 90 mg Ondansetron HCl (Zofran Inj) 4 mg IVP Q6H PRN PRN Reason: Nausea/Vomiting Last Admin: 04/03/17 21:09 Dose: 4 mg Pantoprazole Sodium (Protonix Inj) 40 mg IVP DAILY [facility] Last Admin: 03/31/17 09:11 Dose: 40 mg Sodium Bicarbonate (Sodium Bicarbonate Tab) 650 mg PO TID [facility] Last Admin: 04/06/17 17:53 Dose: 650 mg Topiramate (Topamax) 50 mg PO BID [facility] Last Admin: 04/06/17 20:53 Dose: 50 mg - Labs Labs: 04/06/17 11:29 04/06/17 11:29 PT 13.6 SECONDS (9.7-12.2) H 04/04/17 07:30 INR 1.2 04/04/17 07:30 - Constitutional Appears: Well, No Acute Distress - Head Exam Head Exam: ATRAUMATIC, NORMAL INSPECTION - Eye Exam Eye Exam: EOMI, Normal appearance - ENT Exam ENT Exam: Mucous Membranes Moist - Respiratory Exam Respiratory Exam: Clear to Ausculation Bilateral, NORMAL BREATHING PATTERN. absent: Rhonchi, Wheezes, Respiratory Distress - Cardiovascular Exam Cardiovascular Exam: REGULAR RHYTHM, +S1, +S2. absent: Murmur - GI/Abdominal Exam GI & Abdominal Exam: Soft, Normal Bowel Sounds. absent: Firm, Guarding, Rigid, Tenderness - Extremities Exam Extremities Exam: Normal Inspection. absent: Calf Tenderness, Pedal Edema - Neurological Exam Neurological Exam: Alert, Awake - Psychiatric Exam Psychiatric exam: Normal Affect Assessment and Plan (1) Cholangiocarcinoma Assessment & Plan: Cholangiocarcinoma s/p ERCP with sphincterotomy, dilation and biliary stent placement on 04/04/17 Heme/Onc consulted - Dr. Carter - help appreciated Surgery consulted - Dr. Hawley - hel appreciated * Pancreas protocol CT scan - Atrophy of the pancreatic body and tail with prominence of the pancreatic head, lesion surrounding/adjacent to the distal common duct cannot be excluded, endoscopic ultrasound may be helpful for further evaluation; enlarged cirrhotic liver with fatty infiltration; cholecystectomy; pneumobilia with biliary stent; inflammation and edema in the mary hepatis. Further recs per attending evaluation as per surgical team Palliative consulted - As per Gisela- "Further goals of care to be discussed based on overall plan of care. If diagnosis seen as a terminal , patient may consider returning to her own [place] CT head/chest/neck unremarkable for metastatic disease though studies are limited in the absence of IV contrast 2/2 CKD with JADE Biliary stent exchange with metal stent, possibly Sunday Choledocolithiasis/biliary obstruction at distal CBD Hyperbilirubinemia Transaminitis * GI consulted - Dr. Naidu- help appreciated * AST/ALT: 307/290, Alk phos 866, T Bili: 2.6 ---> Trending down * Hepatitis panel - negative * Normal findings on 03/30 CT scan regarding liver * 03/31 MRCP showed moderately to markedly dilated proximal common bile duct with large filling defect noted in the distal common bile duct, which could represent multiple choledocholithiasis (differential consideration includes less likely distal CBD neoplasm or stricture). Also noted [id number] intrahepatic biliary ductal dilatation, cirrhosis with findings suggestive of portal hypertension including splenomegaly and trace ascites, and 6.3 millimeter cyst at the pancreatic head. - Common bile duct, stricture biopsy: Invasive adenocarcinoma, moderately differentiated * Cardiology consulted - Dr. Corona- for cardio clearance and echo ordered for findings seen on CT abd/pelvis * S/P Stress Test: Stress test: Normal * ECHO: LVEF 55-62%, Moderate diastolic dysfunction. Grade 2 pseudonormal filling * Cardiac point of cleared for GI procedures (ERCP) * Cardiac Risk: Low to Intermediate * S/P ERCP with sphincterotomy, balloon dilation and biliary stent placement * will need Repeat ERCP with spyglass possibly sunday or sunday (04/09-04/10/17 ) - arrangements will be made Status: Acute (2) Acute kidney injury Assessment & Plan: Nephrology consulted - Dr. Juárez - help appreciated - patient is established with this group * Not on dialysis * Baseline creatine 1-1.5 * On admission 2.2 * D5 NS with 150 MEQ Sodium Bicarb - started by Nephrology * Marie inserted * 04/05/17- nephro changed fluids D5 1/2 NS @ 100cc + NaBicarb 650mg PO TID * Renal function improving - continue on fluids and NaBicarb tablets Status: Acute (3) Anemia of chronic disease Assessment & Plan: * Baseline hemoglobin 10 * Will continue to monitor * Retic count 1.5 * Iron 23 * TIBC 259 * % Saturation 9 * Ferritin 103 Status: Acute (4) HTN (hypertension) Assessment & Plan: * Bystolic and nifedipine XL continued (home meds) * Lipid panel noted: Tri, Chol: 186, LDL: 97, HDL: 37 Status: Acute (5) Diabetes Assessment & Plan: * Accuchecks * A1C- 5.1 * ISS- low Status: Acute (6) Colitis Assessment & Plan: Diarrhea - resolved * GI consulted -Dr. Naidu- help appreciated * SIRS: Febrile, bandemia- high of 36 , lactate normal x 2 * Blood Cultures negative up to date * Stool culture: negative * Negative stool leukocytes * C-Difficle toxin: negative * Hypocholemic Metabolic Acidosis - improving Imaging: * CT ab/pel: Mild colitis limited to the ascending colon, small pericardial effusion and cardiomegaly * Abdominal Obstructive Xray: Cardiomegaly. Mild bibasilar atelectasis. Cholecystectomy clips. Nonspecific bowel gas pattern. Meds: * Zosyn Q6H, Flagyl started 04/03/17 due to persistent diarrhea * Probiotics 2 hours prior to abx administration * Toradol, Morphine, Zofran PRN Status: Acute (7) Prophylactic measure Assessment & Plan: * GI PPX: Protonix 40mg PO daily * DVT PPX: SCDs, Hep Q12 * PT EVAL: continue inpatient PT, no services upon discharge required Will discuss plans with attending Status: Acute <Brad Zapata H - Last Filed: 04/07/17 08:43> Objective - Vital Signs/Intake and Output Vital Signs (last 24 hours): Temp Pulse Resp BP Pulse Ox 98.6 F 72 20 178/72 H 97 04/07/17 04:20 04/07/17 04:20 04/07/17 04:20 04/07/17 04:20 04/07/17 04:20 Intake and Output: 04/07/17 04/07/17 06:59 18:59 Intake Total 1800 Output Total 1350 Balance 450 - Medications Medications: Current Medications Acetaminophen (Tylenol 325mg Tab) 650 mg PO Q6 PRN PRN Reason: Fever >100.4 F Last Admin: 04/03/17 17:24 Dose: 650 mg Benzocaine/Menthol (Cepacol Sore Throat) 1 ramone MT Q4 PRN Last Admin: 04/06/17 10:13 Dose: 1 ramone Heparin Sodium (Porcine) (Heparin) 5,000 units SC Q12 [facility] Last Admin: 04/03/17 21:14 Dose: Not Given Metronidazole (Flagyl) 500 mg in 100 mls @ 100 mls/hr IVPB Q8H [facility] Last Admin: 04/07/17 04:19 Dose: 100 mls/hr Dextrose/Sodium Chloride (Dextrose 5%/0.45% Ns 1000 Ml) 1,000 mls @ 100 mls/hr IV .Q10H [facility] Last Admin: 04/06/17 17:52 Dose: 100 mls/hr Piperacillin Sod/Tazobactam (Sod 2.25 gm/ Sodium Chloride) 100 mls @ 100 mls/ hr IV Q6H [facility] Last Admin: 04/07/17 05:45 Dose: 100 mls/hr Insulin Human Regular (Novolin R) 0 unit SC ACHS [facility] PRN Reason: Protocol Last Admin: 04/06/17 22:00 Dose: Not Given Lactobacillus Acidophilus (Bacid Acidophilus) 1 cap PO BID [facility] Last Admin: 04/06/17 17:52 Dose: 1 cap Nebivolol (Bystolic) 2.5 mg PO DAILY [facility] Last Admin: 04/06/17 10:13 Dose: 2.5 mg Nifedipine (Procardia Xl) 90 mg PO DAILY [facility] Last Admin: 04/06/17 10:13 Dose: 90 mg Ondansetron HCl (Zofran Inj) 4 mg IVP Q6H PRN PRN Reason: Nausea/Vomiting Last Admin: 04/03/17 21:09 Dose: 4 mg Pantoprazole Sodium (Protonix Inj) 40 mg IVP DAILY [facility] Last Admin: 03/31/17 09:11 Dose: 40 mg Sodium Bicarbonate (Sodium Bicarbonate Tab) 650 mg PO TID [facility] Last Admin: 04/06/17 17:53 Dose: 650 mg Topiramate (Topamax) 50 mg PO BID [facility] Last Admin: 04/06/17 20:53 Dose: 50 mg - Labs Labs: 04/07/17 07:31 04/07/17 07:31 PT 13.6 SECONDS (9.7-12.2) H 04/04/17 07:30 INR 1.2 04/04/17 07:30 Attending/Attestation - Attestation I have personally seen and examined this patient.: Yes I have fully participated in the care of the patient.: Yes I have reviewed all pertinent clinical information, including history, physical exam and plan: Yes Notes (Text): Medical attending: Patient was seen and examined by me. Agree with the above note by the resident. The patient was eating breakfast today. The serum bicarb is still on the low side, metabolic acidosis probably from diarrhea and history of CKD. At this moment we still have her on both the IVF D5 with bicarb and also on bicarb tablets. The pulmonary congestion on her chest XRAY yesterday looked better than previous days. Will order another one today. The creatine is trending downwards Hopefully surgery will get back to us soon. Per discussion with palliative care - the patient and family are thinking about going back to her home country if there isn't much that can be done. thank you Brad Zapata
[2017-04-07] MEDS: metroNIDAZOLE IV 500 mg/100 ml 500 MG/100 ML BAG IVPB SCH ×3 (04:19→22:36)
--- NOTE | 2017-04-07 07:48 | CP.PCM.PN ---
<CelestinoJer - Last Filed: 04/07/17 10:04> Subjective - Date & Time of Evaluation Date of Evaluation: 04/07/17 Time of Evaluation: 08:00 - Subjective Subjective: PGY5 GI Fellow Progress Note Patient seen and examined bedside this morning. The patient denies any complaints this morning. On entering the patient's room this morning she was in the restroom and some loose stool noted outside the door. Admits that she couldn 't make it to the bathroom in time but this is first occurrance. Continues to have soft/semi-formed stool, twice already today. 12 system ROS performed and negative except where stated. Objective - Vital Signs/Intake and Output Vital Signs (last 24 hours): Temp Pulse Resp BP Pulse Ox 98.6 F 72 20 178/72 H 97 04/07/17 04:20 04/07/17 04:20 04/07/17 04:20 04/07/17 04:20 04/07/17 04:20 Intake and Output: 04/07/17 04/07/17 06:59 18:59 Intake Total 1800 Output Total 1350 Balance 450 - Medications Medications: Current Medications Acetaminophen (Tylenol 325mg Tab) 650 mg PO Q6 PRN PRN Reason: Fever >100.4 F Last Admin: 04/03/17 17:24 Dose: 650 mg Benzocaine/Menthol (Cepacol Sore Throat) 1 ramone MT Q4 PRN Last Admin: 04/06/17 10:13 Dose: 1 ramone Heparin Sodium (Porcine) (Heparin) 5,000 units SC Q12 [facility] Last Admin: 04/03/17 21:14 Dose: Not Given Metronidazole (Flagyl) 500 mg in 100 mls @ 100 mls/hr IVPB Q8H [facility] Last Admin: 04/07/17 04:19 Dose: 100 mls/hr Dextrose/Sodium Chloride (Dextrose 5%/0.45% Ns 1000 Ml) 1,000 mls @ 100 mls/hr IV .Q10H [facility] Last Admin: 04/06/17 17:52 Dose: 100 mls/hr Piperacillin Sod/Tazobactam (Sod 2.25 gm/ Sodium Chloride) 100 mls @ 100 mls/ hr IV Q6H [facility] Last Admin: 04/07/17 05:45 Dose: 100 mls/hr Insulin Human Regular (Novolin R) 0 unit SC ACHS [facility] PRN Reason: Protocol Last Admin: 04/06/17 22:00 Dose: Not Given Lactobacillus Acidophilus (Bacid Acidophilus) 1 cap PO BID [facility] Last Admin: 04/06/17 17:52 Dose: 1 cap Nebivolol (Bystolic) 2.5 mg PO DAILY [facility] Last Admin: 04/06/17 10:13 Dose: 2.5 mg Nifedipine (Procardia Xl) 90 mg PO DAILY [facility] Last Admin: 04/06/17 10:13 Dose: 90 mg Ondansetron HCl (Zofran Inj) 4 mg IVP Q6H PRN PRN Reason: Nausea/Vomiting Last Admin: 04/03/17 21:09 Dose: 4 mg Pantoprazole Sodium (Protonix Inj) 40 mg IVP DAILY [facility] Last Admin: 03/31/17 09:11 Dose: 40 mg Sodium Bicarbonate (Sodium Bicarbonate Tab) 650 mg PO TID [facility] Last Admin: 04/06/17 17:53 Dose: 650 mg Topiramate (Topamax) 50 mg PO BID [facility] Last Admin: 04/06/17 20:53 Dose: 50 mg - Labs Labs: 04/06/17 11:29 04/06/17 11:29 PT 13.6 SECONDS (9.7-12.2) H 04/04/17 07:30 INR 1.2 04/04/17 07:30 - Constitutional Appears: Non-toxic, No Acute Distress - Eye Exam Eye Exam: EOMI, PERRL - ENT Exam ENT Exam: Mucous Membranes Moist - Respiratory Exam Respiratory Exam: Clear to Ausculation Bilateral. absent: Rales, Rhonchi, Wheezes - Cardiovascular Exam Cardiovascular Exam: RRR, +S1, +S2 - GI/Abdominal Exam GI & Abdominal Exam: Soft, Normal Bowel Sounds. absent: Distended, Firm, Guarding, Rigid, Tenderness, Hyperactive Bowel Sounds, Organomegaly - Extremities Exam Extremities Exam: Normal Inspection. absent: Pedal Edema - Neurological Exam Neurological Exam: Alert, Awake, Oriented x3 - Psychiatric Exam Psychiatric exam: Normal Affect, Normal Mood - Skin Skin Exam: Dry, Warm Assessment and Plan - Assessment and Plan (Free Text) Assessment: Patient is a 76yo female with PMHx significant for CAD (on plavix), HTN, CKD, osteoporosis who presented with abdominal pain and jaundice. -Cholangiocarcinoma s/p ERCP with sphincterotomy, dilation and biliary stent placement on 04/04/17 -Diarrhea, with CT showing mild ascending colitis -High anion gap metabolic acidosis -CKD with JADE Plan: -Awaiting hepatobiliary surgical evaluation -Patient may benefit from palliative metal stent placement if not a surgical candidate -Appreicate oncology input -Underlying PSC may be etiology for development of cancer - Alk phos elevation dominates liver profile with elevated T bili a result of current obstructive process; cholangiogram on ERCP and presence of compensated cirrhosis on imaging would also support this diagnosis -IgG4 pending -Consider checking IgM and pANCA -CAROLA/AMA negative -UDCA could be considered, though unlike to improve ongoing issues -Patient very unlikely liver transplant candidate -CA 19-9 noted to be elevated at 146 -AFP ordered by oncology -Imaging of head/chest/pancreas noted, though limited without contrast there is no evidence of distant metastatic disease -Initial CT showed mild ascending colitis - ongoing diarrhea and improving JADE/ metabolic acidosis -Check fecal fat, R/O exocrine pancreatic insufficiency as a result of obstructive disease 2/2 malignancy -Stool w/u negative to date - on empiric zosyn/flagyl -If diarrhea persists - could consider colonoscopy -Diet as tolerated <Adriel Hoskins - Last Filed: 04/07/17 10:19> Objective - Vital Signs/Intake and Output Vital Signs (last 24 hours): Temp Pulse Resp BP Pulse Ox 98.6 F 72 20 178/72 H 97 04/07/17 04:20 04/07/17 04:20 04/07/17 04:20 04/07/17 04:20 04/07/17 04:20 Intake and Output: 04/07/17 04/07/17 06:59 18:59 Intake Total 1800 Output Total 1350 Balance 450 - Medications Medications: Current Medications Acetaminophen (Tylenol 325mg Tab) 650 mg PO Q6 PRN PRN Reason: Fever >100.4 F Last Admin: 04/03/17 17:24 Dose: 650 mg Benzocaine/Menthol (Cepacol Sore Throat) 1 ramone MT Q4 PRN Last Admin: 04/06/17 10:13 Dose: 1 ramone Heparin Sodium (Porcine) (Heparin) 5,000 units SC Q12 [facility] Last Admin: 04/03/17 21:14 Dose: Not Given Metronidazole (Flagyl) 500 mg in 100 mls @ 100 mls/hr IVPB Q8H [facility] Last Admin: 04/07/17 04:19 Dose: 100 mls/hr Piperacillin Sod/Tazobactam (Sod 2.25 gm/ Sodium Chloride) 100 mls @ 100 mls/ hr IV Q6H [facility] Last Admin: 04/07/17 05:45 Dose: 100 mls/hr Insulin Human Regular (Novolin R) 0 unit SC ACHS [facility] PRN Reason: Protocol Last Admin: 04/07/17 08:36 Dose: Not Given Lactobacillus Acidophilus (Bacid Acidophilus) 1 cap PO BID [facility] Last Admin: 04/06/17 17:52 Dose: 1 cap Nebivolol (Bystolic) 2.5 mg PO DAILY [facility] Last Admin: 04/06/17 10:13 Dose: 2.5 mg Nifedipine (Procardia Xl) 90 mg PO DAILY [facility] Last Admin: 04/06/17 10:13 Dose: 90 mg Ondansetron HCl (Zofran Inj) 4 mg IVP Q6H PRN PRN Reason: Nausea/Vomiting Last Admin: 04/03/17 21:09 Dose: 4 mg Pantoprazole Sodium (Protonix Inj) 40 mg IVP DAILY [facility] Last Admin: 03/31/17 09:11 Dose: 40 mg Sodium Bicarbonate (Sodium Bicarbonate Tab) 1,300 mg PO TID [facility] Topiramate (Topamax) 50 mg PO BID [facility] Last Admin: 04/06/17 20:53 Dose: 50 mg - Labs Labs: 04/07/17 07:31 04/07/17 07:31 PT 13.6 SECONDS (9.7-12.2) H 04/04/17 07:30 INR 1.2 04/04/17 07:30 Attending/Attestation - Attestation I have personally seen and examined this patient.: Yes I have fully participated in the care of the patient.: Yes I have reviewed all pertinent clinical information, including history, physical exam and plan: Yes Notes (Text): 04/07/17 10:12 I have seen and examined patient with GI fellow. No acute events overnight, she is seen sitting at bedside eating breakfast, family members present. She denies abdominal pain, nausea, fever/chills. She is having ongoing loose bowel movements, tolerating PO diet without difficulty. Review of vitals from today shows elevated BP. CAD on plavix HTN CKD Abdominal pain, jaundice - s/p ERCP with distal bile duct biopsies consistent with cholangiocarcinoma Cirrhosis - ?PSC Colitis - Diet as tolerated - Continue with antibiotic therapy - Continue to monitor LFTs - Follow up oncology recommendations - Awaiting surgical evaluation to determine potential resectability. If patient is deemed non-operative candidate then she would be best served by placement of metallic biliary stent placement for palliative purposes. Will continue to monitor patient clinical course.
[2017-04-07 07:50] LABS: BASO % 0.7 % (0.0-2.0); EOS # 0.1 K/uL (0.0-0.7); EOS % 2.6 % (0.0-4.0); HEMOGLOBIN 8.9 g/dL (11.0-16.0); LYMPH # 1.7 K/uL (1.0-4.3); LYMPH % 32.4 % (20.0-40.0); MEAN CELL VOLUME 91.1 fL (81.0-99.0); MEAN CORPUSCULAR HEMOGLOBIN 31.2 pg (27.0-31.0); MEAN CORPUSCULAR HGB CONC 34.2 g/dL (33.0-37.0); MEAN PLATELET VOLUME 9.2 fL (7.2-11.7); MONO # 0.3 K/uL (0.0-0.8); MONO % 6.3 % (0.0-10.0); RBC 2.84 Mil/uL (3.80-5.20); RED CELL DISTRIBUTION WIDTH 15.4 % (11.5-14.5); WHITE BLOOD COUNT 5.1 K/uL (4.8-10.8)
[2017-04-07 08:05] LABS: ALB/GLOB RATIO 0.7 (1.0-2.1); ALBUMIN 2.9 g/dL (3.5-5.0); CALCIUM 8.1 mg/dl (8.6-10.4); MAGNESIUM 1.9 mg/dL (1.6-2.3)
[2017-04-07] MEDS: (Novolin R) Insulin Human Regular 100 units/ml vial SC SCH ×4 (08:36→22:41)
--- NOTE | 2017-04-07 09:19 | CP.PCM.PN ---
Subjective - Date & Time of Evaluation Date of Evaluation: 04/07/17 Time of Evaluation: 07:00 - Subjective Subjective: Surgery- Dr. Hawley Patient seen and examined at bedside this AM. No acute events overnight. Tolerating current diet. Admits to loose BM. Denies Fevers, chills, chest pain, shortness of breath, nausea, vomiting, diarrhea Objective - Vital Signs/Intake and Output Vital Signs (last 24 hours): Temp Pulse Resp BP Pulse Ox 98.6 F 72 20 178/72 H 97 04/07/17 04:20 04/07/17 04:20 04/07/17 04:20 04/07/17 04:20 04/07/17 04:20 Intake and Output: 04/07/17 04/07/17 06:59 18:59 Intake Total 1800 Output Total 1350 Balance 450 - Medications Medications: Current Medications Acetaminophen (Tylenol 325mg Tab) 650 mg PO Q6 PRN PRN Reason: Fever >100.4 F Last Admin: 04/03/17 17:24 Dose: 650 mg Benzocaine/Menthol (Cepacol Sore Throat) 1 ramone MT Q4 PRN Last Admin: 04/06/17 10:13 Dose: 1 ramone Heparin Sodium (Porcine) (Heparin) 5,000 units SC Q12 [facility] Last Admin: 04/03/17 21:14 Dose: Not Given Metronidazole (Flagyl) 500 mg in 100 mls @ 100 mls/hr IVPB Q8H [facility] Last Admin: 04/07/17 04:19 Dose: 100 mls/hr Dextrose/Sodium Chloride (Dextrose 5%/0.45% Ns 1000 Ml) 1,000 mls @ 100 mls/hr IV .Q10H [facility] Last Admin: 04/06/17 17:52 Dose: 100 mls/hr Piperacillin Sod/Tazobactam (Sod 2.25 gm/ Sodium Chloride) 100 mls @ 100 mls/ hr IV Q6H [facility] Last Admin: 04/07/17 05:45 Dose: 100 mls/hr Insulin Human Regular (Novolin R) 0 unit SC ACHS [facility] PRN Reason: Protocol Last Admin: 04/07/17 08:36 Dose: Not Given Lactobacillus Acidophilus (Bacid Acidophilus) 1 cap PO BID [facility] Last Admin: 04/06/17 17:52 Dose: 1 cap Nebivolol (Bystolic) 2.5 mg PO DAILY [facility] Last Admin: 04/06/17 10:13 Dose: 2.5 mg Nifedipine (Procardia Xl) 90 mg PO DAILY [facility] Last Admin: 04/06/17 10:13 Dose: 90 mg Ondansetron HCl (Zofran Inj) 4 mg IVP Q6H PRN PRN Reason: Nausea/Vomiting Last Admin: 04/03/17 21:09 Dose: 4 mg Pantoprazole Sodium (Protonix Inj) 40 mg IVP DAILY [facility] Last Admin: 03/31/17 09:11 Dose: 40 mg Sodium Bicarbonate (Sodium Bicarbonate Tab) 650 mg PO TID [facility] Last Admin: 04/06/17 17:53 Dose: 650 mg Topiramate (Topamax) 50 mg PO BID [facility] Last Admin: 04/06/17 20:53 Dose: 50 mg - Labs Labs: 04/07/17 07:31 04/07/17 07:31 PT 13.6 SECONDS (9.7-12.2) H 04/04/17 07:30 INR 1.2 04/04/17 07:30 - Constitutional Appears: Non-toxic, No Acute Distress - Head Exam Head Exam: ATRAUMATIC - Eye Exam Eye Exam: EOMI. absent: Scleral icterus - ENT Exam ENT Exam: Mucous Membranes Moist - Respiratory Exam Respiratory Exam: NORMAL BREATHING PATTERN. absent: Accessory Muscle Use, Respiratory Distress - Cardiovascular Exam Cardiovascular Exam: +S1, +S2. absent: Bradycardia, Tachycardia - GI/Abdominal Exam GI & Abdominal Exam: Soft. absent: Distended, Firm, Guarding, Rigid, Tenderness - Neurological Exam Neurological Exam: Alert, Awake - Psychiatric Exam Psychiatric exam: Normal Affect - Skin Skin Exam: Intact, Warm Assessment and Plan - Assessment and Plan (Free Text) Assessment: 76F s/p ERCP w/ sphincterotomy; cholangiocarcinoma Plan: - continue to monitor vitals - medical management per primary team - will discuss w/ family about possible surgical options and best course of treatment - discussed w/ Dr. Hawley surgical attending PGY1
--- NOTE | 2017-04-07 09:32 | CP.PCM.PN ---
Subjective - Date & Time of Evaluation Date of Evaluation: 04/07/17 Time of Evaluation: 09:30 - Subjective Subjective: ouput around 3.6 liters bp mildly elevated afebrile creatinine unchanged at 2.4 co2 14 comfortable in bed ate entire breakfast ROS no chills fever no chest pain no sob cough no abd pain n/v/d fley in place Objective - Vital Signs/Intake and Output Vital Signs (last 24 hours): Temp Pulse Resp BP Pulse Ox 98.6 F 72 20 178/72 H 97 04/07/17 04:20 04/07/17 04:20 04/07/17 04:20 04/07/17 04:20 04/07/17 04:20 Intake and Output: 04/07/17 04/07/17 06:59 18:59 Intake Total 1800 Output Total 1350 Balance 450 - Medications Medications: Current Medications Acetaminophen (Tylenol 325mg Tab) 650 mg PO Q6 PRN PRN Reason: Fever >100.4 F Last Admin: 04/03/17 17:24 Dose: 650 mg Benzocaine/Menthol (Cepacol Sore Throat) 1 ramone MT Q4 PRN Last Admin: 04/06/17 10:13 Dose: 1 ramone Heparin Sodium (Porcine) (Heparin) 5,000 units SC Q12 [facility] Last Admin: 04/03/17 21:14 Dose: Not Given Metronidazole (Flagyl) 500 mg in 100 mls @ 100 mls/hr IVPB Q8H [facility] Last Admin: 04/07/17 04:19 Dose: 100 mls/hr Dextrose/Sodium Chloride (Dextrose 5%/0.45% Ns 1000 Ml) 1,000 mls @ 100 mls/hr IV .Q10H [facility] Last Admin: 04/06/17 17:52 Dose: 100 mls/hr Piperacillin Sod/Tazobactam (Sod 2.25 gm/ Sodium Chloride) 100 mls @ 100 mls/ hr IV Q6H [facility] Last Admin: 04/07/17 05:45 Dose: 100 mls/hr Insulin Human Regular (Novolin R) 0 unit SC ACHS [facility]ESS[facility] PRN Reason: Protocol Last Admin: 04/07/17 08:36 Dose: Not Given Lactobacillus Acidophilus (Bacid Acidophilus) 1 cap PO BID [facility] Last Admin: 04/06/17 17:52 Dose: 1 cap Nebivolol (Bystolic) 2.5 mg PO DAILY [facility] Last Admin: 04/06/17 10:13 Dose: 2.5 mg Nifedipine (Procardia Xl) 90 mg PO DAILY [facility] Last Admin: 04/06/17 10:13 Dose: 90 mg Ondansetron HCl (Zofran Inj) 4 mg IVP Q6H PRN PRN Reason: Nausea/Vomiting Last Admin: 04/03/17 21:09 Dose: 4 mg Pantoprazole Sodium (Protonix Inj) 40 mg IVP DAILY [facility] Last Admin: 03/31/17 09:11 Dose: 40 mg Sodium Bicarbonate (Sodium Bicarbonate Tab) 650 mg PO TID [facility] Last Admin: 04/06/17 17:53 Dose: 650 mg Topiramate (Topamax) 50 mg PO BID [facility] Last Admin: 04/06/17 20:53 Dose: 50 mg - Labs Labs: 04/07/17 07:31 04/07/17 07:31 PT 13.6 SECONDS (9.7-12.2) H 04/04/17 07:30 INR 1.2 04/04/17 07:30 - Constitutional Appears: Well, No Acute Distress - ENT Exam ENT Exam: Mucous Membranes Moist - Respiratory Exam Respiratory Exam: Clear to Ausculation Bilateral, NORMAL BREATHING PATTERN - Cardiovascular Exam Cardiovascular Exam: Irregular Rhythm - GI/Abdominal Exam GI & Abdominal Exam: Soft. absent: Distended, Tenderness - Extremities Exam Extremities Exam: Pedal Edema. absent: Calf Tenderness - Back Exam Back Exam: absent: CVA tenderness (L), CVA tenderness (R) - Psychiatric Exam Psychiatric exam: Normal Mood. absent: Anxious, Depressed - Skin Skin Exam: Dry Assessment and Plan (1) Biliary obstruction Status: Acute (2) Cholangiocarcinoma Status: Acute (3) Metabolic acidosis Status: Acute (4) HTN (hypertension) Status: Acute - Assessment and Plan (Free Text) Plan: d/c iv increase bicarb to 2 tid
[2017-04-07] MEDS: Lactobacillus Acidophilus 500 MU Cap PO SCH ×2 (10:38→17:33)
[2017-04-07] MEDS: Benzocaine/Menthol (Cepacol) Lozenge MT PRN (10:38)
[2017-04-07] MEDS: NIFEdipine 90 mg ER Tab PO SCH (11:20)
--- NOTE | 2017-04-08 00:13 | CP.PCM.PN ---
<Krissy Ayalafelicianogeraldine E - Last Filed: 04/08/17 00:10> Subjective - Date & Time of Evaluation Date of Evaluation: 04/08/17 Time of Evaluation: 00:00 - Subjective Subjective: Medicine Progress note ( Dr. Zapata's service) Patient was seen and examined at bedside. Patient was resting comfortably in bed watching TV. Patient reports that she is doing well and has no acute complaints or issues. Patient denies chest pain, palpitations, SOB, nausea, vomiting, abdominal pain, diarrhea and constipation. Objective - Vital Signs/Intake and Output Vital Signs (last 24 hours): Temp Pulse Resp BP Pulse Ox 98.6 F 72 20 178/72 H 97 04/07/17 04:20 04/07/17 04:20 04/07/17 04:20 04/07/17 04:20 04/07/17 04:20 Intake and Output: 04/07/17 04/08/17 18:59 06:59 Intake Total 350 Output Total 450 Balance -100 - Medications Medications: Current Medications Acetaminophen (Tylenol 325mg Tab) 650 mg PO Q6 PRN PRN Reason: Fever >100.4 F Last Admin: 04/03/17 17:24 Dose: 650 mg Benzocaine/Menthol (Cepacol Sore Throat) 1 ramone MT Q4 PRN Last Admin: 04/07/17 10:38 Dose: 1 ramone Heparin Sodium (Porcine) (Heparin) 5,000 units SC Q12 [facility] Last Admin: 04/03/17 21:14 Dose: Not Given Metronidazole (Flagyl) 500 mg in 100 mls @ 100 mls/hr IVPB Q8H [facility] Last Admin: 04/07/17 22:36 Dose: 100 mls/hr Piperacillin Sod/Tazobactam (Sod 2.25 gm/ Sodium Chloride) 100 mls @ 100 mls/ hr IV Q6H [facility] Last Admin: 04/07/17 22:42 Dose: 100 mls/hr Insulin Human Regular (Novolin R) 0 unit SC ACHS [facility] PRN Reason: Protocol Last Admin: 04/07/17 22:41 Dose: Not Given Lactobacillus Acidophilus (Bacid Acidophilus) 1 cap PO BID [facility] Last Admin: 04/07/17 17:33 Dose: 1 cap Nebivolol (Bystolic) 2.5 mg PO DAILY [facility] Last Admin: 04/07/17 10:39 Dose: 2.5 mg Nifedipine (Procardia Xl) 90 mg PO DAILY [facility] Last Admin: 04/07/17 11:20 Dose: 90 mg Ondansetron HCl (Zofran Inj) 4 mg IVP Q6H PRN PRN Reason: Nausea/Vomiting Last Admin: 04/03/17 21:09 Dose: 4 mg Pantoprazole Sodium (Protonix Inj) 40 mg IVP DAILY [facility] Last Admin: 03/31/17 09:11 Dose: 40 mg Sodium Bicarbonate (Sodium Bicarbonate Tab) 1,300 mg PO TID [facility] Last Admin: 04/07/17 17:35 Dose: 1,300 mg Topiramate (Topamax) 50 mg PO BID [facility] Last Admin: 04/07/17 17:34 Dose: 50 mg - Labs Labs: 04/07/17 07:31 04/07/17 07:31 PT 13.6 SECONDS (9.7-12.2) H 04/04/17 07:30 INR 1.2 04/04/17 07:30 - Constitutional Appears: Well, No Acute Distress - Head Exam Head Exam: ATRAUMATIC, NORMAL INSPECTION - Eye Exam Eye Exam: EOMI, Normal appearance - ENT Exam ENT Exam: Mucous Membranes Moist - Respiratory Exam Respiratory Exam: Clear to Ausculation Bilateral, NORMAL BREATHING PATTERN - Cardiovascular Exam Cardiovascular Exam: REGULAR RHYTHM, +S1, +S2 - GI/Abdominal Exam GI & Abdominal Exam: Soft, Normal Bowel Sounds. absent: Guarding, Rigid, Tenderness - Extremities Exam Extremities Exam: Normal Inspection. absent: Calf Tenderness, Pedal Edema - Neurological Exam Neurological Exam: Alert, Awake, Oriented x3 - Psychiatric Exam Psychiatric exam: Depressed Assessment and Plan (1) Cholangiocarcinoma Assessment & Plan: s/p ERCP with sphincterotomy, dilation and biliary stent placement on 04/04/17 Heme/Onc consulted - Dr. Carter - help appreciated Surgery consulted - Dr. Hawley - help appreciated * Pancreas protocol CT scan - Atrophy of the pancreatic body and tail with prominence of the pancreatic head, lesion surrounding/adjacent to the distal common duct cannot be excluded, endoscopic ultrasound may be helpful for further evaluation; enlarged cirrhotic liver with fatty infiltration; cholecystectomy; pneumobilia with biliary stent; inflammation and edema in the mary hepatis. Further recs per attending evaluation as per surgical team * As per surgical team; plans to discuss with family about possible surgical options and best course of treatment Palliative consulted - As per Gisela- "Further goals of care to be discussed based on overall plan of care. If diagnosis seen as a terminal , patient may consider returning to her own [place] [facility] CT head/chest/neck unremarkable for metastatic disease though studies are limited in the absence of IV contrast 2/2 CKD with JADE Biliary stent exchange with metal stent, possibly; As per GI, awaiting surgical evaluation to determine potential resectability. If patient is deemed non-operative candidate then she would be best served by placement of metallic biliary stent placement for palliative purposes. Choledocolithiasis/biliary obstruction at distal CBD Hyperbilirubinemia Transaminitis * GI consulted - Dr. Naidu- help appreciated * AST/ALT: 307/290, Alk phos 866, T Bili: 2.6 ---> Trending down * Hepatitis panel - negative * Normal findings on 03/30 CT scan regarding liver * 03/31 MRCP showed moderately to markedly dilated proximal common bile duct with large filling defect noted in the distal common bile duct, which could represent multiple choledocholithiasis (differential consideration includes less likely distal CBD neoplasm or stricture). Also noted [id number] intrahepatic biliary ductal dilatation, cirrhosis with findings suggestive of portal hypertension including splenomegaly and trace ascites, and 6.3 millimeter cyst at the pancreatic head. - Common bile duct, stricture biopsy: Invasive adenocarcinoma, moderately differentiated * Cardiology consulted - Dr. Corona- for cardio clearance and echo ordered for findings seen on CT abd/pelvis * S/P Stress Test: Stress test: Normal * ECHO: LVEF 55-62%, Moderate diastolic dysfunction. Grade 2 pseudonormal filling * Cardiac point of cleared for GI procedures (ERCP) * Cardiac Risk: Low to Intermediate * S/P ERCP with sphincterotomy, balloon dilation and biliary stent placement * will need Repeat ERCP with spyglass possibly sunday or sunday (04/09-04/10/17 ) - arrangements will be made Status: Acute Status: Acute (2) Acute kidney injury Assessment & Plan: Nephrology consulted - Dr. Juárez - help appreciated - patient is established with this group * Not on dialysis * Baseline creatine 1-1.5 * On admission 2.2 * D5 NS with 150 MEQ Sodium Bicarb - started by Nephrology * Marie inserted * 04/05/17- nephro changed fluids D5 1/2 NS @ 100cc + NaBicarb 650mg PO TID * Renal function improving - continue on fluids and NaBicarb tablets Status: Acute (3) Anemia of chronic disease Assessment & Plan: H/H stable * Baseline hemoglobin 10 * Will continue to monitor with labs * Retic count 1.5 * Iron 23 * TIBC 259 * % Saturation 9 * Ferritin 103 Status: Acute (4) HTN (hypertension) Assessment & Plan: Bystolic and nifedipine XL continued (home meds) * Lipid panel noted: Tri, Chol: 186, LDL: 97, HDL: 37 Status: Acute (5) Diabetes Assessment & Plan: * Accuchecks * A1C- 5.1 * ISS- low Status: Acute (6) Colitis Assessment & Plan: * GI consulted -Dr. Naidu- help appreciated * SIRS: Febrile, bandemia- high of 36 , lactate normal x 2; Afebrile>48 hours * Blood Cultures negative up to date for 5 days * Stool culture: negative * Negative stool leukocytes and negative for ova and parasite * C-Difficle toxin: negative * Hypocholemic Metabolic Acidosis - improving Imaging: * CT ab/pel: Mild colitis limited to the ascending colon, small pericardial effusion and cardiomegaly * Abdominal Obstructive Xray: Cardiomegaly. Mild bibasilar atelectasis. Cholecystectomy clips. Nonspecific bowel gas pattern. Meds: * Zosyn Q6H, Flagyl started 04/03/17 due to persistent diarrhea * Probiotics 2 hours prior to abx administration * Zofran PRN Status: Acute (7) Prophylactic measure Assessment & Plan: * GI PPX: Protonix 40mg PO daily * DVT PPX: SCDs, Hep Q12 * PT EVAL: continue inpatient PT, no services upon discharge required Will discuss plans with attending Status: Acute <Brad Zapata H - Last Filed: 04/08/17 09:00> Objective - Vital Signs/Intake and Output Vital Signs (last 24 hours): Temp Pulse Resp BP Pulse Ox 97.2 F L 73 20 144/63 98 04/07/17 23:45 04/07/17 23:45 04/07/17 23:45 04/07/17 23:45 04/07/17 23:45 Intake and Output: 04/08/17 04/08/17 06:59 18:59 Intake Total 1120 Output Total 1550 Balance -430 - Medications Medications: Current Medications Acetaminophen (Tylenol 325mg Tab) 650 mg PO Q6 PRN PRN Reason: Fever >100.4 F Last Admin: 04/03/17 17:24 Dose: 650 mg Benzocaine/Menthol (Cepacol Sore Throat) 1 ramone MT Q4 PRN Last Admin: 04/07/17 10:38 Dose: 1 ramone Heparin Sodium (Porcine) (Heparin) 5,000 units SC Q12 [facility] Last Admin: 04/03/17 21:14 Dose: Not Given Metronidazole (Flagyl) 500 mg in 100 mls @ 100 mls/hr IVPB Q8H [facility] Last Admin: 04/08/17 04:14 Dose: 100 mls/hr Piperacillin Sod/Tazobactam (Sod 2.25 gm/ Sodium Chloride) 100 mls @ 100 mls/ hr IV Q6H [facility] Last Admin: 04/08/17 04:15 Dose: 100 mls/hr Insulin Human Regular (Novolin R) 0 unit SC ACHS [facility] PRN Reason: Protocol Last Admin: 04/08/17 07:44 Dose: Not Given Lactobacillus Acidophilus (Bacid Acidophilus) 1 cap PO BID [facility] Last Admin: 04/07/17 17:33 Dose: 1 cap Nebivolol (Bystolic) 2.5 mg PO DAILY [facility] Last Admin: 04/07/17 10:39 Dose: 2.5 mg Nifedipine (Procardia Xl) 90 mg PO DAILY [facility] Last Admin: 04/07/17 11:20 Dose: 90 mg Ondansetron HCl (Zofran Inj) 4 mg IVP Q6H PRN PRN Reason: Nausea/Vomiting Last Admin: 04/03/17 21:09 Dose: 4 mg Pantoprazole Sodium (Protonix Inj) 40 mg IVP DAILY [facility] Last Admin: 03/31/17 09:11 Dose: 40 mg Sodium Bicarbonate (Sodium Bicarbonate Tab) 1,300 mg PO TID [facility] Last Admin: 04/07/17 17:35 Dose: 1,300 mg Topiramate (Topamax) 50 mg PO BID [facility] Last Admin: 04/07/17 17:34 Dose: 50 mg - Labs Labs: 04/07/17 07:31 04/07/17 07:31 PT 13.6 SECONDS (9.7-12.2) H 04/04/17 07:30 INR 1.2 04/04/17 07:30 Attending/Attestation - Attestation I have personally seen and examined this patient.: Yes I have fully participated in the care of the patient.: Yes I have reviewed all pertinent clinical information, including history, physical exam and plan: Yes Notes (Text): 04/08/17 08:53 Medical attending : Patient was seen and examined by me. Agree with the above note by the resident As mentioned previously this is a 76 year old female with cholangiocarcinoma and a recent ERCP with sphincterotomy, dilation and biliary stent placement on . Per surgery team, hepatobilliary surgeon is comming to evaluate patient and so she may or may not get a metal stent depending on evaluation. Pending AM lab work, probably she will still have a low serum bicarb from ongoing loss in the stool as well as JADE on CKD The creatine has been decreasing with IVF Today she did not have family members present. She was eating when I came and saw her. She reported no abdominal pain at rest but did have very minimal pain today when pressing the RUQ. She did go to the bathroom earlier in the morning and if I understood her correctly her stools were still watery. For now she remains on the IV abx Zosyn and Flagyl. Brad Zapata
--- NOTE | 2017-04-08 03:32 | CP.PCM.PN ---
Subjective - Date & Time of Evaluation Date of Evaluation: 04/07/17 Time of Evaluation: 19:00 - Subjective Subjective: Feeling better, eating more Objective - Vital Signs/Intake and Output Vital Signs (last 24 hours): Temp Pulse Resp BP Pulse Ox 97.2 F L 73 20 144/63 98 04/07/17 23:45 04/07/17 23:45 04/07/17 23:45 04/07/17 23:45 04/07/17 23:45 Intake and Output: 04/07/17 04/08/17 18:59 06:59 Intake Total 350 900 Output Total 450 650 Balance -100 250 - Medications Medications: Current Medications Acetaminophen (Tylenol 325mg Tab) 650 mg PO Q6 PRN PRN Reason: Fever >100.4 F Last Admin: 04/03/17 17:24 Dose: 650 mg Benzocaine/Menthol (Cepacol Sore Throat) 1 ramone MT Q4 PRN Last Admin: 04/07/17 10:38 Dose: 1 ramone Heparin Sodium (Porcine) (Heparin) 5,000 units SC Q12 [facility] Last Admin: 04/03/17 21:14 Dose: Not Given Metronidazole (Flagyl) 500 mg in 100 mls @ 100 mls/hr IVPB Q8H [facility] Last Admin: 04/07/17 22:36 Dose: 100 mls/hr Piperacillin Sod/Tazobactam (Sod 2.25 gm/ Sodium Chloride) 100 mls @ 100 mls/ hr IV Q6H [facility] Last Admin: 04/07/17 22:42 Dose: 100 mls/hr Insulin Human Regular (Novolin R) 0 unit SC ACHS [facility] PRN Reason: Protocol Last Admin: 04/07/17 22:41 Dose: Not Given Lactobacillus Acidophilus (Bacid Acidophilus) 1 cap PO BID [facility] Last Admin: 04/07/17 17:33 Dose: 1 cap Nebivolol (Bystolic) 2.5 mg PO DAILY [facility] Last Admin: 04/07/17 10:39 Dose: 2.5 mg Nifedipine (Procardia Xl) 90 mg PO DAILY [facility] Last Admin: 04/07/17 11:20 Dose: 90 mg Ondansetron HCl (Zofran Inj) 4 mg IVP Q6H PRN PRN Reason: Nausea/Vomiting Last Admin: 04/03/17 21:09 Dose: 4 mg Pantoprazole Sodium (Protonix Inj) 40 mg IVP DAILY [facility] Last Admin: 03/31/17 09:11 Dose: 40 mg Sodium Bicarbonate (Sodium Bicarbonate Tab) 1,300 mg PO TID [facility] Last Admin: 04/07/17 17:35 Dose: 1,300 mg Topiramate (Topamax) 50 mg PO BID [facility] Last Admin: 04/07/17 17:34 Dose: 50 mg - Labs Labs: 04/07/17 07:31 04/07/17 07:31 PT 13.6 SECONDS (9.7-12.2) H 04/04/17 07:30 INR 1.2 04/04/17 07:30 - Head Exam Head Exam: ATRAUMATIC - Eye Exam Eye Exam: Normal appearance - ENT Exam ENT Exam: Mucous Membranes Dry - Respiratory Exam Respiratory Exam: NORMAL BREATHING PATTERN - Cardiovascular Exam Cardiovascular Exam: +S1, +S2 - GI/Abdominal Exam GI & Abdominal Exam: Normal Bowel Sounds Assessment and Plan (1) Cholangiocarcinoma Assessment & Plan: hepatibiliary surgery eval. ? resectable if not a surgical candidate, for GI placement of metal stent and outpatient chemotherapy Status: Acute (2) Anemia Assessment & Plan: chronic disease Status: Acute
[2017-04-08] MEDS: metroNIDAZOLE IV 500 mg/100 ml 500 MG/100 ML BAG IVPB SCH ×2 (04:14→12:37)
[2017-04-08] MEDS: (Novolin R) Insulin Human Regular 100 units/ml vial SC SCH ×4 (07:44→22:38)
--- NOTE | 2017-04-08 08:14 | CP.PCM.PN ---
Subjective - Date & Time of Evaluation Date of Evaluation: 04/08/17 Time of Evaluation: 06:50 - Subjective Subjective: Surgery- Dr. Hawley Patient seen and examined at bedside this AM. No acute events overnight. tolerating current diet. + loose BM and passing flatus. No abd pain at this time. Denies fevers, chills, chest pain, shortness of breath, nausea, vomiting, diarrhea Objective - Vital Signs/Intake and Output Vital Signs (last 24 hours): Temp Pulse Resp BP Pulse Ox 97.2 F L 73 20 144/63 98 04/07/17 23:45 04/07/17 23:45 04/07/17 23:45 04/07/17 23:45 04/07/17 23:45 Intake and Output: 04/08/17 04/08/17 06:59 18:59 Intake Total 1120 Output Total 1550 Balance -430 - Medications Medications: Current Medications Acetaminophen (Tylenol 325mg Tab) 650 mg PO Q6 PRN PRN Reason: Fever >100.4 F Last Admin: 04/03/17 17:24 Dose: 650 mg Benzocaine/Menthol (Cepacol Sore Throat) 1 ramone MT Q4 PRN Last Admin: 04/07/17 10:38 Dose: 1 ramone Heparin Sodium (Porcine) (Heparin) 5,000 units SC Q12 [facility] Last Admin: 04/03/17 21:14 Dose: Not Given Metronidazole (Flagyl) 500 mg in 100 mls @ 100 mls/hr IVPB Q8H [facility] Last Admin: 04/08/17 04:14 Dose: 100 mls/hr Piperacillin Sod/Tazobactam (Sod 2.25 gm/ Sodium Chloride) 100 mls @ 100 mls/ hr IV Q6H [facility] Last Admin: 04/08/17 04:15 Dose: 100 mls/hr Insulin Human Regular (Novolin R) 0 unit SC ACHS [facility] PRN Reason: Protocol Last Admin: 04/08/17 07:44 Dose: Not Given Lactobacillus Acidophilus (Bacid Acidophilus) 1 cap PO BID [facility] Last Admin: 04/07/17 17:33 Dose: 1 cap Nebivolol (Bystolic) 2.5 mg PO DAILY [facility] Last Admin: 04/07/17 10:39 Dose: 2.5 mg Nifedipine (Procardia Xl) 90 mg PO DAILY [facility] Last Admin: 04/07/17 11:20 Dose: 90 mg Ondansetron HCl (Zofran Inj) 4 mg IVP Q6H PRN PRN Reason: Nausea/Vomiting Last Admin: 04/03/17 21:09 Dose: 4 mg Pantoprazole Sodium (Protonix Inj) 40 mg IVP DAILY [facility] Last Admin: 03/31/17 09:11 Dose: 40 mg Sodium Bicarbonate (Sodium Bicarbonate Tab) 1,300 mg PO TID [facility] Last Admin: 04/07/17 17:35 Dose: 1,300 mg Topiramate (Topamax) 50 mg PO BID [facility] Last Admin: 04/07/17 17:34 Dose: 50 mg - Labs Labs: 04/07/17 07:31 04/07/17 07:31 PT 13.6 SECONDS (9.7-12.2) H 04/04/17 07:30 INR 1.2 04/04/17 07:30 - Constitutional Appears: Non-toxic, No Acute Distress - Head Exam Head Exam: ATRAUMATIC - Eye Exam Eye Exam: EOMI. absent: Scleral icterus - Respiratory Exam Respiratory Exam: NORMAL BREATHING PATTERN. absent: Accessory Muscle Use, Respiratory Distress - Cardiovascular Exam Cardiovascular Exam: +S1, +S2. absent: Bradycardia, Tachycardia - GI/Abdominal Exam GI & Abdominal Exam: Soft. absent: Distended, Firm, Guarding, Rigid, Tenderness , Rebound - Extremities Exam Extremities Exam: Normal Inspection. absent: Calf Tenderness - Neurological Exam Neurological Exam: Alert, Awake, Oriented x3 - Psychiatric Exam Psychiatric exam: Normal Affect - Skin Skin Exam: Intact, Warm Assessment and Plan - Assessment and Plan (Free Text) Assessment: 76F s/p ERCP w/ sphincterotomy; cholangiocarcinoma Plan: - will discuss w/ family tomorrow about treatment of care options including surgery - request hold on metal stent placement prior to surgery - continue to monitor vitals - medical management per primary team - discussed w/ Dr. Hawley surgical attending [employer] [email or web address]
--- NOTE | 2017-04-08 08:34 | CP.PCM.PN ---
<Jer Tirado - Last Filed: 04/08/17 10:12> Subjective - Date & Time of Evaluation Date of Evaluation: 04/08/17 Time of Evaluation: 07:30 - Subjective Subjective: PGY5 GI Fellow Progress Note Patient seen and examined bedside this morning. The patient states that she has some mild RUQ abdominal pain. Denies any nausea, vomiting and is tolerating diet thusfar without issue. NO events overnight. 12 system ROS performed and negative except where stated. Objective - Vital Signs/Intake and Output Vital Signs (last 24 hours): Temp Pulse Resp BP Pulse Ox 97.2 F L 73 20 144/63 98 04/07/17 23:45 04/07/17 23:45 04/07/17 23:45 04/07/17 23:45 04/07/17 23:45 Intake and Output: 04/08/17 04/08/17 06:59 18:59 Intake Total 1120 Output Total 1550 Balance -430 - Medications Medications: Current Medications Acetaminophen (Tylenol 325mg Tab) 650 mg PO Q6 PRN PRN Reason: Fever >100.4 F Last Admin: 04/03/17 17:24 Dose: 650 mg Benzocaine/Menthol (Cepacol Sore Throat) 1 ramone MT Q4 PRN Last Admin: 04/07/17 10:38 Dose: 1 ramone Heparin Sodium (Porcine) (Heparin) 5,000 units SC Q12 [facility] Last Admin: 04/03/17 21:14 Dose: Not Given Metronidazole (Flagyl) 500 mg in 100 mls @ 100 mls/hr IVPB Q8H [facility] Last Admin: 04/08/17 04:14 Dose: 100 mls/hr Piperacillin Sod/Tazobactam (Sod 2.25 gm/ Sodium Chloride) 100 mls @ 100 mls/ hr IV Q6H [facility] Last Admin: 04/08/17 04:15 Dose: 100 mls/hr Insulin Human Regular (Novolin R) 0 unit SC ACHS [facility] PRN Reason: Protocol Last Admin: 04/08/17 07:44 Dose: Not Given Lactobacillus Acidophilus (Bacid Acidophilus) 1 cap PO BID [facility] Last Admin: 04/07/17 17:33 Dose: 1 cap Nebivolol (Bystolic) 2.5 mg PO DAILY [facility] Last Admin: 02/24/18 10:39 Dose: 2.5 mg Nifedipine (Procardia Xl) 90 mg PO DAILY [facility] Last Admin: 04/07/17 11:20 Dose: 90 mg Ondansetron HCl (Zofran Inj) 4 mg IVP Q6H PRN PRN Reason: Nausea/Vomiting Last Admin: 04/03/17 21:09 Dose: 4 mg Pantoprazole Sodium (Protonix Inj) 40 mg IVP DAILY [facility] Last Admin: 03/31/17 09:11 Dose: 40 mg Sodium Bicarbonate (Sodium Bicarbonate Tab) 1,300 mg PO TID [facility] Last Admin: 04/07/17 17:35 Dose: 1,300 mg Topiramate (Topamax) 50 mg PO BID [facility] Last Admin: 04/07/17 17:34 Dose: 50 mg - Labs Labs: 04/07/17 07:31 04/07/17 07:31 PT 13.6 SECONDS (9.7-12.2) H 04/04/17 07:30 INR 1.2 04/04/17 07:30 - Constitutional Appears: Non-toxic, No Acute Distress - Eye Exam Eye Exam: EOMI, PERRL - ENT Exam ENT Exam: Mucous Membranes Moist - Respiratory Exam Respiratory Exam: Clear to Ausculation Bilateral. absent: Rales, Rhonchi, Wheezes - Cardiovascular Exam Cardiovascular Exam: RRR, +S1, +S2 - GI/Abdominal Exam GI & Abdominal Exam: Soft, Tenderness (RUQ), Normal Bowel Sounds. absent: Distended, Firm, Guarding, Rigid, Organomegaly - Extremities Exam Extremities Exam: Normal Inspection. absent: Pedal Edema - Neurological Exam Neurological Exam: Alert, Awake, Oriented x3 - Psychiatric Exam Psychiatric exam: Normal Affect, Normal Mood - Skin Skin Exam: Dry, Warm Assessment and Plan - Assessment and Plan (Free Text) Assessment: Patient is a 76yo female with PMHx significant for CAD (on plavix), HTN, CKD, osteoporosis who presented with abdominal pain and jaundice. -Cholangiocarcinoma s/p ERCP with sphincterotomy, dilation and biliary stent placement on 04/04/17 -Diarrhea, with CT showing mild ascending colitis -High anion gap metabolic acidosis -CKD with JADE Plan: -Case disucssed with assembler surgical garment for Dr Hawley -Surgery to discuss options iw patient today - if surgical candidate and willin got undergo procedure, we will hold off on metal stent placement per their request -Appreicate oncology input -Underlying PSC may be etiology for development of cancer - Alk phos elevation dominates liver profile with elevated T bili a result of current obstructive process; cholangiogram on ERCP and presence of compensated cirrhosis on imaging would also support this diagnosis -IgG4 pending -IgM WNL -pANCA pending -CAROLA/AMA negative -CA 19-9 noted to be elevated at 146, AFP WNL -Imaging of head/chest/pancreas noted, though limited without contrast there is no evidence of distant metastatic disease -Initial CT showed mild ascending colitis - ongoing diarrhea and improving JADE/ metabolic acidosis - check fecal fat -Stool w/u negative to date - on empiric zosyn/flagyl -If diarrhea persists - may benefit from colonoscopy -Diet as tolerated <Adriel Hoskins - Last Filed: 04/08/17 10:39> Objective - Vital Signs/Intake and Output Vital Signs (last 24 hours): Temp Pulse Resp BP Pulse Ox 98.3 F 72 20 190/79 H 96 04/08/17 09:23 04/08/17 09:58 04/08/17 09:23 04/08/17 09:58 04/08/17 09:23 Intake and Output: 04/08/17 04/08/17 06:59 18:59 Intake Total 1120 Output Total 1550 Balance -430 - Medications Medications: Current Medications Acetaminophen (Tylenol 325mg Tab) 650 mg PO Q6 PRN PRN Reason: Fever >100.4 F Last Admin: 04/03/17 17:24 Dose: 650 mg Benzocaine/Menthol (Cepacol Sore Throat) 1 ramone MT Q4 PRN Last Admin: 04/07/17 10:38 Dose: 1 ramone Heparin Sodium (Porcine) (Heparin) 5,000 units SC Q12 [facility] Last Admin: 04/03/17 21:14 Dose: Not Given Metronidazole (Flagyl) 500 mg in 100 mls @ 100 mls/hr IVPB Q8H [facility] Last Admin: 04/08/17 04:14 Dose: 100 mls/hr Piperacillin Sod/Tazobactam (Sod 2.25 gm/ Sodium Chloride) 100 mls @ 100 mls/ hr IV Q6H [facility] Last Admin: 04/08/17 04:15 Dose: 100 mls/hr Insulin Human Regular (Novolin R) 0 unit SC ACHS [facility] PRN Reason: Protocol Last Admin: 04/08/17 07:44 Dose: Not Given Lactobacillus Acidophilus (Bacid Acidophilus) 1 cap PO BID [facility] Last Admin: 04/08/17 10:00 Dose: 1 cap Nebivolol (Bystolic) 2.5 mg PO DAILY [facility] Last Admin: 04/08/17 10:00 Dose: 2.5 mg Nifedipine (Procardia Xl) 90 mg PO DAILY [facility] Last Admin: 04/08/17 10:01 Dose: 90 mg Ondansetron HCl (Zofran Inj) 4 mg IVP Q6H PRN PRN Reason: Nausea/Vomiting Last Admin: 04/03/17 21:09 Dose: 4 mg Pantoprazole Sodium (Protonix Inj) 40 mg IVP DAILY [facility] Last Admin: 03/31/17 09:11 Dose: 40 mg Sodium Bicarbonate (Sodium Bicarbonate Tab) 1,300 mg PO TID [facility] Last Admin: 04/08/17 10:00 Dose: 1,300 mg Topiramate (Topamax) 50 mg PO BID [facility] Last Admin: 04/08/17 10:00 Dose: 50 mg - Labs Labs: 04/08/17 08:43 04/08/17 08:43 PT 13.6 SECONDS (9.7-12.2) H 04/04/17 07:30 INR 1.2 04/04/17 07:30 Attending/Attestation - Attestation I have personally seen and examined this patient.: Yes I have fully participated in the care of the patient.: Yes I have reviewed all pertinent clinical information, including history, physical exam and plan: Yes Notes (Text): 04/08/17 10:35 I have seen and examined patient with GI fellow. Patient is seen ambulating in hallway with family members, appears comfortable. She denies abdominal pain, nausea, vomiting, fever/chills. Tolerating PO diet without difficulty. She had one soft bowel movement this morning. CAD HTN CKD Abdominal pain, jaundice s/p ERCP with sphincterotomy and biliary stent placement - biopsies from distal bile duct show cholangiocarcinoma Cirrhosis - etiology unclear Colitis - Diet as tolerated - Continue with antibiotic therapy - Awaiting autoimmune panel testing and serologic markers for cirrhosis workup - Awaiting surgical recommendations regarding potential operative candidacy vs endoscopic palliative metal stent placement - Will continue to monitor patient clinical course
[2017-04-08 08:58] LABS: BASO % 0.7 % (0.0-2.0); EOS # 0.2 K/uL (0.0-0.7); HEMOGLOBIN 9.8 g/dL (11.0-16.0); LYMPH # 1.8 K/uL (1.0-4.3); MEAN CELL VOLUME 91.2 fL (81.0-99.0); MEAN CORPUSCULAR HEMOGLOBIN 31.1 pg (27.0-31.0); MEAN CORPUSCULAR HGB CONC 34.1 g/dL (33.0-37.0); MEAN PLATELET VOLUME 9.1 fL (7.2-11.7); MONO # 0.3 K/uL (0.0-0.8); MONO % 5.5 % (0.0-10.0); NEUT # 3.1 K/uL (1.8-7.0); NEUT % 56.8 % (50.0-75.0); NRBC % 0.1 % (0.0-2.0); RBC 3.16 Mil/uL (3.80-5.20); RED CELL DISTRIBUTION WIDTH 15.6 % (11.5-14.5); WHITE BLOOD COUNT 5.4 K/uL (4.8-10.8)
[2017-04-08 09:07] LABS: ALB/GLOB RATIO 0.7 (1.0-2.1); ALBUMIN 3.1 g/dL (3.5-5.0); CALCIUM 8.5 mg/dl (8.6-10.4)
[2017-04-08] MEDS: Lactobacillus Acidophilus 500 MU Cap PO SCH ×2 (10:00→18:03)
[2017-04-08] MEDS: NIFEdipine 90 mg ER Tab PO SCH (10:01)
[2017-04-08 23:46] VITALS: RESP 20
[2017-04-09] MEDS: (Novolin R) Insulin Human Regular 100 units/ml vial SC SCH ×3 (07:56→17:30)
--- NOTE | 2017-04-09 08:01 | CP.PCM.PN ---
<Jer Tirado - Last Filed: 04/09/17 12:56> Subjective - Date & Time of Evaluation Date of Evaluation: 04/09/17 Time of Evaluation: 06:55 - Subjective Subjective: PGY5 GI Fellow Progress Note Patient seen and examined bedside this morning. The patient states that she had some RUQ abdominal pain last night, relieved by IV Toradol. Denies any nausea, vomiting and tolerated all meals yesterday. States stool still soft but more formed. No fever, chills. 12 system ROS performed and negative except where stated. Objective - Vital Signs/Intake and Output Vital Signs (last 24 hours): Temp Pulse Resp BP Pulse Ox 97.1 F L 67 20 175/73 H 99 04/08/17 23:43 04/08/17 23:43 04/08/17 23:43 04/09/17 04:00 04/08/17 23:43 Intake and Output: 04/09/17 04/09/17 06:59 18:59 Intake Total 1000 Output Total 1050 Balance -50 - Medications Medications: Current Medications Acetaminophen (Tylenol 325mg Tab) 650 mg PO Q6 PRN PRN Reason: Fever >100.4 F Last Admin: 04/03/17 17:24 Dose: 650 mg Benzocaine/Menthol (Cepacol Sore Throat) 1 ramone MT Q4 PRN Last Admin: 04/07/17 10:38 Dose: 1 ramone Heparin Sodium (Porcine) (Heparin) 5,000 units SC Q12 [facility] Last Admin: 04/03/17 21:14 Dose: Not Given Piperacillin Sod/Tazobactam (Sod 2.25 gm/ Sodium Chloride) 100 mls @ 100 mls/ hr IV Q6H [facility] Last Admin: 04/09/17 05:12 Dose: 100 mls/hr Insulin Human Regular (Novolin R) 0 unit SC ACHS [facility] PRN Reason: Protocol Last Admin: 04/08/17 22:38 Dose: Not Given Lactobacillus Acidophilus (Bacid Acidophilus) 1 cap PO BID [facility] Last Admin: 04/08/17 18:03 Dose: 1 cap Nebivolol (Bystolic) 2.5 mg PO DAILY [facility] Last Admin: 04/08/17 10:00 Dose: 2.5 mg Nifedipine (Procardia Xl) 90 mg PO DAILY [facility] Last Admin: 04/08/17 10:01 Dose: 90 mg Ondansetron HCl (Zofran Inj) 4 mg IVP Q6H PRN PRN Reason: Nausea/Vomiting Last Admin: 04/03/17 21:09 Dose: 4 mg Pantoprazole Sodium (Protonix Inj) 40 mg IVP DAILY [facility] Last Admin: 03/31/17 09:11 Dose: 40 mg Sodium Bicarbonate (Sodium Bicarbonate Tab) 1,300 mg PO TID [facility] Last Admin: 04/08/17 18:04 Dose: 1,300 mg Topiramate (Topamax) 50 mg PO BID [facility] Last Admin: 04/08/17 18:04 Dose: 50 mg - Labs Labs: 04/08/17 08:43 04/08/17 08:43 PT 13.6 SECONDS (9.7-12.2) H 04/04/17 07:30 INR 1.2 04/04/17 07:30 - Constitutional Appears: Non-toxic, No Acute Distress - Eye Exam Eye Exam: EOMI, PERRL - ENT Exam ENT Exam: Mucous Membranes Moist - Respiratory Exam Respiratory Exam: Clear to Ausculation Bilateral, Rhonchi. absent: Rales, Wheezes - Cardiovascular Exam Cardiovascular Exam: RRR, +S1, +S2 - GI/Abdominal Exam GI & Abdominal Exam: Soft, Tenderness (RUQ, epigastric), Normal Bowel Sounds. absent: Distended, Firm, Guarding, Rigid, Organomegaly - Extremities Exam Extremities Exam: Normal Inspection. absent: Pedal Edema - Neurological Exam Neurological Exam: Alert, Awake, Oriented x3 - Psychiatric Exam Psychiatric exam: Normal Affect, Normal Mood - Skin Skin Exam: Dry, Warm Assessment and Plan - Assessment and Plan (Free Text) Assessment: Patient is a 76yo female with PMHx significant for CAD (on plavix), HTN, CKD, osteoporosis who presented with abdominal pain and jaundice. -Cholangiocarcinoma s/p ERCP with sphincterotomy, dilation and biliary stent placement on 04/04/17 -Diarrhea, with CT showing mild ascending colitis -High anion gap metabolic acidosis -CKD with JADE Plan: -OK to D/C per surgical service with outpatient follow up, PET-CT planned -Pending findings, will either go for surgical resection or palliative route with metal biliary stent -Oncology following -Pain control per primary service -IgG4 and ANCA pending -Remainder of autoimmune serologies have been WNL -CA 19-9 146 -Awaiting fecal fat analysis -Flagyl D/C, on Zosyn -If diarrhea persists - may benefit from colonoscopy -Diet as tolerated -Follow up appointment given to patient with Dr Naidu on 04/24/17 at 2PM <Tristin Bills - Last Filed: 04/09/17 21:18> Objective - Vital Signs/Intake and Output Vital Signs (last 24 hours): Temp Pulse Resp BP Pulse Ox 97.8 F 74 20 160/70 H 98 04/09/17 16:00 04/09/17 16:00 04/09/17 16:00 04/09/17 16:00 04/09/17 16:00 Intake and Output: 04/09/17 04/10/17 18:59 06:59 Intake Total 400 Output Total 200 Balance 200 - Medications Medications: Current Medications Acetaminophen (Tylenol 325mg Tab) 650 mg PO Q6 PRN PRN Reason: Fever >100.4 F Last Admin: 04/03/17 17:24 Dose: 650 mg Benzocaine/Menthol (Cepacol Sore Throat) 1 ramone MT Q4 PRN Last Admin: 04/07/17 10:38 Dose: 1 ramone Heparin Sodium (Porcine) (Heparin) 5,000 units SC Q12 [facility] Last Admin: 04/03/17 21:14 Dose: Not Given Piperacillin Sod/Tazobactam (Sod 2.25 gm/ Sodium Chloride) 100 mls @ 100 mls/ hr IV Q6H [facility] Last Admin: 04/09/17 16:18 Dose: 100 mls/hr Insulin Human Regular (Novolin R) 0 unit SC ACHS [facility] PRN Reason: Protocol Last Admin: 04/09/17 17:30 Dose: Not Given Lactobacillus Acidophilus (Bacid Acidophilus) 1 cap PO BID [facility] Last Admin: 04/09/17 17:50 Dose: 1 cap Nebivolol (Bystolic) 5 mg PO DAILY [facility] Nifedipine (Procardia Xl) 120 mg PO DAILY [facility] Ondansetron HCl (Zofran Inj) 4 mg IVP Q6H PRN PRN Reason: Nausea/Vomiting Last Admin: 04/03/17 21:09 Dose: 4 mg Pantoprazole Sodium (Protonix Ec Tab) 40 mg PO DAILY [facility] Sodium Bicarbonate (Sodium Bicarbonate Tab) 650 mg PO TID [facility] Last Admin: 04/09/17 17:51 Dose: 650 mg Topiramate (Topamax) 50 mg PO BID [facility] Last Admin: 04/09/17 17:50 Dose: 50 mg - Labs Labs: 04/09/17 07:45 04/09/17 07:45 PT 13.6 SECONDS (9.7-12.2) H 04/04/17 07:30 INR 1.2 04/04/17 07:30 Attending/Attestation - Attestation I have personally seen and examined this patient.: Yes I have fully participated in the care of the patient.: Yes I have reviewed all pertinent clinical information, including history, physical exam and plan: Yes Notes (Text): 04/09/17 21:15 I have seen and examined patient with GI fellow. Patient denies abdominal pain, nausea, vomiting, fever/chills. Tolerating PO diet without difficulty. She had one soft bowel movement this morning. In a nutshell 76 yr old [place] ar[place]ian speaking F with CAD, HTN, CKD and jaundice s/p ERCP s/p ERCP with sphincterotomy and biliary stent placement - biopsies from distal bile duct show cholangiocarcinoma. As per surgical service outpatient PET scan and then plan surgery. If not a surgical candidate, will plan for endoscopic palliative metal stent. Diet as tolerated. To follow with Dr Naidu as outpatient
[2017-04-09 08:05] LABS: BASO % 0.9 % (0.0-2.0); EOS # 0.1 K/uL (0.0-0.7); EOS % 3.9 % (0.0-4.0); HEMOGLOBIN 8.4 g/dL (11.0-16.0); LYMPH # 1.4 K/uL (1.0-4.3); LYMPH % 39.7 % (20.0-40.0); MEAN CELL VOLUME 91.4 fL (81.0-99.0); MEAN CORPUSCULAR HGB CONC 32.9 g/dL (33.0-37.0); MONO # 0.3 K/uL (0.0-0.8); MONO % 7.1 % (0.0-10.0); NEUT # 1.7 K/uL (1.8-7.0); NEUT % 48.4 % (50.0-75.0); NRBC % 0.1 % (0.0-2.0); RBC 2.79 Mil/uL (3.80-5.20); RED CELL DISTRIBUTION WIDTH 15.7 % (11.5-14.5); WHITE BLOOD COUNT 3.6 K/uL (4.8-10.8)
[2017-04-09 08:16] LABS: ALB/GLOB RATIO 0.7 (1.0-2.1); ALBUMIN 2.7 g/dL (3.5-5.0)
[2017-04-09] MEDS: Lactobacillus Acidophilus 500 MU Cap PO SCH ×2 (10:42→17:50)
[2017-04-09] MEDS: NIFEdipine 90 mg ER Tab PO SCH (11:10)
[2017-04-09] MEDS ORDERED: NIFEdipine 60 mg ER Tab PO ONE (11:30)
--- NOTE | 2017-04-09 11:33 | CP.PCM.PN ---
Subjective - Date & Time of Evaluation Date of Evaluation: 04/09/17 Time of Evaluation: 11:30 - Subjective Subjective: Alert; feels better less abdominal pains plans for discharge and eventual abdominal surgery noted creat sl better at 2.5 still acidemic- would continue na bicarb Objective - Vital Signs/Intake and Output Vital Signs (last 24 hours): Temp Pulse Resp BP Pulse Ox 97.9 F 51 L 20 217/74 H 99 04/09/17 08:47 04/09/17 10:40 04/09/17 08:47 04/09/17 10:40 04/09/17 08:47 Intake and Output: 04/09/17 04/09/17 06:59 18:59 Intake Total 1000 Output Total 1050 Balance -50 - Medications Medications: Current Medications Acetaminophen (Tylenol 325mg Tab) 650 mg PO Q6 PRN PRN Reason: Fever >100.4 F Last Admin: 04/03/17 17:24 Dose: 650 mg Benzocaine/Menthol (Cepacol Sore Throat) 1 ramone MT Q4 PRN Last Admin: 04/07/17 10:38 Dose: 1 ramone Heparin Sodium (Porcine) (Heparin) 5,000 units SC Q12 [facility] Last Admin: 04/03/17 21:14 Dose: Not Given Piperacillin Sod/Tazobactam (Sod 2.25 gm/ Sodium Chloride) 100 mls @ 100 mls/ hr IV Q6H [facility] Last Admin: 04/09/17 10:40 Dose: 100 mls/hr Insulin Human Regular (Novolin R) 0 unit SC ACHS [facility] PRN Reason: Protocol Last Admin: 04/09/17 07:56 Dose: Not Given Lactobacillus Acidophilus (Bacid Acidophilus) 1 cap PO BID [facility] Last Admin: 04/09/17 10:42 Dose: 1 cap Nebivolol (Bystolic) 2.5 mg PO DAILY [facility] Last Admin: 04/09/17 10:49 Dose: 2.5 mg Nifedipine (Procardia Xl) 120 mg PO DAILY [facility] Nifedipine (Procardia Xl) 120 mg PO ONCE ONE Stop: 04/09/17 11:31 Ondansetron HCl (Zofran Inj) 4 mg IVP Q6H PRN PRN Reason: Nausea/Vomiting Last Admin: 04/03/17 21:09 Dose: 4 mg Pantoprazole Sodium (Protonix Inj) 40 mg IVP DAILY [facility] Last Admin: 03/31/17 09:11 Dose: 40 mg Sodium Bicarbonate (Sodium Bicarbonate Tab) 1,300 mg PO TID [facility] Last Admin: 04/09/17 10:41 Dose: 1,300 mg Topiramate (Topamax) 50 mg PO BID [facility] Last Admin: 04/09/17 10:42 Dose: 50 mg - Labs Labs: 04/09/17 07:45 04/09/17 07:45 PT 13.6 SECONDS (9.7-12.2) H 04/04/17 07:30 INR 1.2 04/04/17 07:30 - Constitutional Appears: No Acute Distress, Chronically Ill - Head Exam Head Exam: ATRAUMATIC, NORMAL INSPECTION - Eye Exam Eye Exam: EOMI, Scleral icterus - Neck Exam Neck Exam: Normal Inspection. absent: Tenderness - Respiratory Exam Respiratory Exam: Clear to Ausculation Bilateral, NORMAL BREATHING PATTERN - Cardiovascular Exam Cardiovascular Exam: REGULAR RHYTHM, +S1 - GI/Abdominal Exam GI & Abdominal Exam: Soft, Tenderness - Extremities Exam Extremities Exam: Normal Inspection. absent: Tenderness - Neurological Exam Neurological Exam: Alert, CN II-XII Intact - Skin Skin Exam: Dry, Warm Assessment and Plan (1) Acute renal failure Status: Acute (2) Metabolic acidosis Status: Acute (3) Biliary obstruction Status: Acute - Assessment and Plan (Free Text) Plan: lower bicarb dose will need abdominal surgery for tumor resection in near future
--- NOTE | 2017-04-09 11:43 | CP.PCM.DIS ---
<Melonie Echeverria - Last Filed: 04/09/17 12:12> Provider - Provider Date of Admission: 03/30/17 19:08 Attending physician: Brad Zapata DO Time Spent in preparation of Discharge (in minutes): 55 Hospital Course - Lab Results Lab Results: Micro Results 03/30/17 15:45 Blood Blood Culture - Final NO GROWTH AFTER 5 DAYS 03/30/17 15:45 Blood Gram Stain - Final TEST NOT PERFORMED 03/30/17 15:15 Blood Blood Culture - Final NO GROWTH AFTER 5 DAYS 03/30/17 15:15 Blood Gram Stain - Final TEST NOT PERFORMED 03/30/17 18:43 Body Fluid - Bowel Ova and Parasite Concentrate Exam - Final 03/31/17 10:14 Urine Urine Culture - Final No Growth (<1,000 CFU/ML) 03/30/17 18:43 Stool Stool Culture - Final NO SALMONELLA, SHIGELLA OR CAMPYLOBACTER ISOLATED. Most Recent Lab Values WBC 3.6 K/uL (4.8-10.8) L 04/09/17 07:45 RBC 2.79 Mil/uL (3.80-5.20) L 04/09/17 07:45 Hgb 8.4 g/dL (11.0-16.0) L 04/09/17 07:45 Hct 25.5 % (34.0-47.0) L 04/09/17 07:45 MCV 91.4 fL (81.0-99.0) 04/09/17 07:45 MCH 30.0 pg (27.0-31.0) 04/09/17 07:45 MCHC 32.9 g/dL (33.0-37.0) L 04/09/17 07:45 RDW 15.7 % (11.5-14.5) H 04/09/17 07:45 Plt Count 176 K/uL (130-400) 04/09/17 07:45 MPV 9.0 fL (7.2-11.7) 04/09/17 07:45 Neut % (Auto) 48.4 % (50.0-75.0) L 04/09/17 07:45 Lymph % (Auto) 39.7 % (20.0-40.0) 04/09/17 07:45 Coal % (Auto) 7.1 % (0.0-10.0) 04/09/17 07:45 Eos % (Auto) 3.9 % (0.0-4.0) 04/09/17 07:45 Baso % (Auto) 0.9 % (0.0-2.0) 04/09/17 07:45 Neut # (Auto) 1.7 K/uL (1.8-7.0) L 04/09/17 07:45 Lymph # (Auto) 1.4 K/uL (1.0-4.3) 04/09/17 07:45 Coal # (Auto) 0.3 K/uL (0.0-0.8) 04/09/17 07:45 Eos # (Auto) 0.1 K/uL (0.0-0.7) 04/09/17 07:45 Baso # (Auto) 0.0 K/uL (0.0-0.2) 04/09/17 07:45 Neutrophils % (Manual) 56 % (50-75) 03/30/17 19:59 Band Neutrophils % 36 % (0-2) H* 03/30/17 19:59 Lymphocytes % (Manual) 4 % (20-40) L 03/30/17 19:59 Monocytes % (Manual) 4 % (0-10) 03/30/17 19:59 Platelet Estimate Slightly decreased (NORMAL) L 03/30/17 19:59 RBC Morphology Normal 03/30/17 19:59 Retic Count 1.5 % (0.5-1.5) 03/31/17 07:09 PT 13.6 SECONDS (9.7-12.2) H 04/04/17 07:30 INR 1.2 04/04/17 07:30 pO2 63 mm/Hg (30-55) H 03/30/17 19:50 VBG pH 7.34 (7.32-7.43) 03/30/17 19:50 VBG pCO2 26 mmHg (40-60) L 03/30/17 19:50 VBG HCO3 16.9 mmol/L 03/30/17 19:50 VBG Total CO2 14.8 mmol/L (22-28) L 03/30/17 19:50 VBG O2 Sat (Calc) 97.8 % (40-65) H 03/30/17 19:50 VBG Base Excess -10.1 mmol/L (0.0-2.0) L 03/30/17 19:50 VBG Potassium 4.4 mmol/L (3.6-5.2) 03/30/17 19:50 Sodium 139.0 mmol/l (132-148) 03/30/17 19:50 Chloride 117.0 mmol/L (98-107) H 03/30/17 19:50 Glucose 137 mg/dl (65-105) H 03/30/17 19:50 Lactate 0.9 mmol/L (0.7-2.1) 03/30/17 19:50 Sodium 139 mmol/L (132-148) 04/09/17 07:45 Potassium 3.7 mmol/L (3.6-5.2) 04/09/17 07:45 Chloride 116 mmol/L (98-107) H 04/09/17 07:45 Carbon Dioxide 14 mmol/L (22-30) L 04/09/17 07:45 Anion Gap 12 (10-20) 04/09/17 07:45 BUN 12 mg/dL (7-17) 04/09/17 07:45 Creatinine 2.5 mg/dL (0.7-1.2) H 04/09/17 07:45 Est GFR ( Amer) 23 04/09/17 07:45 Est GFR (Non-Af Amer) 19 04/09/17 07:45 POC Glucose (mg/dL) 88 mg/dL (65-110) 04/09/17 06:34 Random Glucose 94 mg/dL (65-105) 04/09/17 07:45 Hemoglobin A1c 5.1 % (4.2-6.5) 03/30/17 19:59 Lactic Acid 0.8 mmol/L (0.7-2.1) 03/31/17 07:09 Calcium 8.0 mg/dl (8.6-10.4) L 04/09/17 07:45 Phosphorus 3.8 mg/dL (2.5-4.5) 04/09/17 07:45 Magnesium 2.0 mg/dL (1.6-2.3) 04/09/17 07:45 Iron 44 ug/dL (37-170) 04/01/17 08:34 TIBC 218 ug/dL (250-450) L 04/01/17 08:34 % Saturation 20 (20-55) 04/01/17 08:34 Ferritin 105.0 ng/mL 04/01/17 08:34 Total Bilirubin 0.8 mg/dL (0.2-1.3) 04/09/17 07:45 GGT 1234 U/L (8-78) H 04/06/17 11:29 AST 22 U/L (14-36) 04/09/17 07:45 ALT 28 U/L (9-52) 04/09/17 07:45 Alkaline Phosphatase 335 U/L (38-126) H 04/09/17 07:45 Total Protein 6.3 g/dL (6.3-8.3) 04/09/17 07:45 Albumin 2.7 g/dL (3.5-5.0) L 04/09/17 07:45 Globulin 3.7 gm/dL (2.2-3.9) 04/09/17 07:45 Albumin/Globulin Ratio 0.7 (1.0-2.1) L 04/09/17 07:45 Ceruloplasmin 35 mg/dL (18-53) 04/01/17 08:34 Triglycerides 115 mg/dL (0-149) D 03/31/17 07:09 Cholesterol 186 mg/dL (0-199) 03/31/17 07:09 LDL Cholesterol Direct 97 mg/dL (0-129) 03/31/17 07:09 HDL Cholesterol 37 mg/dL (30-70) 03/31/17 07:09 Lipase 105 U/L (23-300) 03/30/17 13:39 Alpha Fetoprotein 2.3 ng/mL (0.0-7.5) 04/07/17 07:31 CA 19-9 Antigen 81.7 U/mL (0-37) H D 04/07/17 07:31 Venous Blood Potassium 4.4 mmol/L (3.6-5.2) 03/30/17 19:50 Urine Color Romi (YELLOW) 04/03/17 14:39 Urine Clarity Hazy (Clear) 04/03/17 14:39 Urine pH 5.0 (5.0-8.0) 04/03/17 14:39 Ur Specific Brea 1.018 (1.003-1.030) 04/03/17 14:39 Urine Protein 3+ mg/dL (NEGATIVE) H 04/03/17 14:39 Urine Glucose (UA) 1+ mg/dL (Normal) 04/03/17 14:39 Urine Ketones Negative mg/dL (NEGATIVE) 04/03/17 14:39 Urine Blood 1+ (NEGATIVE) H 04/03/17 14:39 Urine Nitrate Negative (NEGATIVE) 04/03/17 14:39 Urine Bilirubin Negative (NEGATIVE) 04/03/17 14:39 Urine Urobilinogen Normal mg/dL (0.2-1.0) 04/03/17 14:39 Ur Leukocyte Esterase Neg Maile/uL (Negative) 04/03/17 14:39 Urine WBC (Auto) 2 /hpf (0-5) 04/03/17 14:39 Urine RBC (Auto) 3 /hpf (0-3) 04/03/17 14:39 Ur Squamous Epith Cells 1 /hpf (0-5) 04/03/17 14:39 Urine Bacteria Occ (<OCC) H 04/03/17 14:39 Hyaline Casts 0-2 /lpf (0-2) 04/03/17 14:39 Ur Random Sodium 60 mmol/L 04/03/17 14:39 Ur Random Potassium 24.4 mmol/L 04/03/17 14:39 Urine Chloride 46 mmol/L (32-290) 04/03/17 14:39 Stool Leukocytes, Qual Negative (NEGATIVE) 03/30/17 19:41 Vancomycin Trough 15.4 ug/mL (5.0-10.0) H 04/02/17 07:10 IgM 141.2 mg/dL (40.0-230.0) 04/07/17 14:18 CAROLA 6 Profile Negative (NEGATIVE) 04/01/17 08:34 Anti-Mitochondrial Ab Negative (Negative) 04/01/17 08:34 Anti-Smooth Muscle Ab Negative (Negative) 04/01/17 08:34 Liver/Kid Microsomes Ab <=20.0 U (<=20.0) 04/01/17 08:34 C. difficile Ag & Toxin Negative (NEGATIVE) 04/06/17 19:25 Hepatitis A IgM Ab Negative (NEGATIVE) 04/01/17 08:34 Hep Bs Antigen Negative (NEGATIVE) 02/18/18 08:34 Hep B Core IgM Ab Negative (NEGATIVE) 04/01/17 08:34 Hepatitis C Antibody Negative (NEGATIVE) 04/01/17 08:34 Blood Type O POSITIVE 04/04/17 11:14 Antibody Screen Negative 04/04/17 11:14 - Hospital Course Hospital Course: Upon Admission: CC: abdominal pain x 1 day HPI: 76 Female with PMHx HTN, DM, CKD, RA, OA presents to the ED with abdominal pain x 1 day. She reports she started to have abdominal pain last night after drinking a cup of a milk. Admitted to nausea, dry heaving, crampy abdominal pain; denied fever, chills, diarrhea (normal bowel movements every 2- 3 days). She reported not eating anything unusual, no sick contacts or recent travel. She saw her PMD last week for routine check up all was unremarkable at that time. Denied fever, chills, headache, chest pain, SOB, n/v/d/c, or urinary symptoms. PMHx: HTN, DM, CKD, RA, OA PSHx: Cholecystectomy, Appendectomy Meds: Will need to call pharmacy - patient does not know home medications- [facility] [phone] All: Fish- rash SHx: Denied tobacco, alcohol, illicit drug use FHx: Unremarkable PMD: Dr. Mickey Suh Throughout Hospital Course: Cholangiocarcinoma Assessment & Plan: s/p ERCP with sphincterotomy, dilation and biliary stent placement on 04/04/17 Heme/Onc consulted - Dr. Carter - help appreciated Surgery consulted - Dr. Hawley - help appreciated * Pancreas protocol CT scan - Atrophy of the pancreatic body and tail with prominence of the pancreatic head, lesion surrounding/adjacent to the distal common duct cannot be excluded, endoscopic ultrasound may be helpful for further evaluation; enlarged cirrhotic liver with fatty infiltration; cholecystectomy; pneumobilia with biliary stent; inflammation and edema in the mary hepatis. Further recs per attending evaluation as per surgical team * As per surgical team; plans to discuss with family about possible surgical options and best course of treatment Palliative consulted - As per Gisela- "Further goals of care to be discussed based on overall plan of care. If diagnosis seen as a terminal , patient may consider returning to her own [place] [facility] CT head/chest/neck unremarkable for metastatic disease though studies are limited in the absence of IV contrast 2/2 CKD with JADE Biliary stent exchange with metal stent, possibly; As per GI, awaiting surgical evaluation to determine potential resectability. If patient is deemed non-operative candidate then she would be best served by placement of metallic biliary stent placement for palliative purposes. Spoke with Dr. Hawley - patient is for outpatient PET Scan - and if no metastasis - then surgery. Choledocolithiasis/biliary obstruction at distal CBD Hyperbilirubinemia Transaminitis * GI consulted - Dr. Gutierrez- help appreciated * AST/ALT: 307/290, Alk phos 866, T Bili: 2.6 ---> Trending down * Hepatitis panel - negative * Normal findings on 03/30 CT scan regarding liver * 03/31 MRCP showed moderately to markedly dilated proximal common bile duct with large filling defect noted in the distal common bile duct, which could represent multiple choledocholithiasis (differential consideration includes less likely distal CBD neoplasm or stricture). Also noted [id number] intrahepatic biliary ductal dilatation, cirrhosis with findings suggestive of portal hypertension including splenomegaly and trace ascites, and 6.3 millimeter cyst at the pancreatic head. - Common bile duct, stricture biopsy: Invasive adenocarcinoma, moderately differentiated * Cardiology consulted - Dr. Corona- for cardio clearance and echo ordered for findings seen on CT abd/pelvis * S/P Stress Test: Stress test: Normal * ECHO: LVEF 55-62%, Moderate diastolic dysfunction. Grade 2 pseudonormal filling * Cardiac point of cleared for GI procedures (ERCP) * Cardiac Risk: Low to Intermediate * S/P ERCP with sphincterotomy, balloon dilation and biliary stent placement * Spoke with Dr. Hawley - patient is for outpatient PET Scan - and if no metastasis - then surgery. Acute kidney injury Assessment & Plan: Nephrology consulted - Dr. Juárez - help appreciated - patient is established with this group * Not on dialysis * Baseline creatine 1-1.5 * On admission 2.2 * D5 NS with 150 MEQ Sodium Bicarb - started by Nephrology * Marie inserted * 04/05/17- nephro changed fluids D5 1/2 NS @ 100cc + NaBicarb 650mg PO TID * Renal function improving - continue on fluids and NaBicarb tablets once discharged and follow up with Dr. Juárez's group Anemia of chronic disease Assessment & Plan: H/H stable * Baseline hemoglobin 10 * Will continue to monitor with labs * Retic count 1.5 * Iron 23 * TIBC 259 * % Saturation 9 * Ferritin 103 HTN (hypertension) Assessment & Plan: Bystolic 2.5mg po daily and nifedipine XL 120mg PO daily * Lipid panel noted: Tri, Chol: 186, LDL: 97, HDL: 37 Diabetes Assessment & Plan: * Accuchecks * A1C- 5.1 * ISS- low Colitis Assessment & Plan: * GI consulted -Dr. Gutierrez- help appreciated * SIRS: Febrile, bandemia- high of 36 , lactate normal x 2; Afebrile>48 hours * Blood Cultures negative up to date for 5 days * Stool culture: negative * Negative stool leukocytes and negative for ova and parasite * C-Difficle toxin: negative * Hypocholemic Metabolic Acidosis - improving Imaging: * CT ab/pel: Mild colitis limited to the ascending colon, small pericardial effusion and cardiomegaly * Abdominal Obstructive Xray: Cardiomegaly. Mild bibasilar atelectasis. Cholecystectomy clips. Nonspecific bowel gas pattern. Meds: * Zosyn Q6H, Flagyl started 04/03/17 due to persistent diarrhea * Probiotics 2 hours prior to abx administration * Zofran PRN * Will finish course of Cipro and flagyl on discharge. This is a brief summary of the patient's hospital course. Please review EMR for full record. Discharge Exam - Additional Findings Additional findings: - Constitutional Appears: Well, No Acute Distress - Head Exam Head Exam: ATRAUMATIC, NORMAL INSPECTION - Eye Exam Eye Exam: EOMI, Normal appearance - ENT Exam ENT Exam: Mucous Membranes Moist - Respiratory Exam Respiratory Exam: Clear to Ausculation Bilateral, NORMAL BREATHING PATTERN - Cardiovascular Exam Cardiovascular Exam: REGULAR RHYTHM, +S1, +S2 - GI/Abdominal Exam GI & Abdominal Exam: Soft, Normal Bowel Sounds. absent: Guarding, Rigid, Tenderness - Extremities Exam Extremities Exam: Normal Inspection. absent: Calf Tenderness, Pedal Edema - Neurological Exam Neurological Exam: Alert, Awake, Oriented x3 - Psychiatric Exam Psychiatric exam: Depressed Discharge Plan - Discharge Medications Prescriptions: Clopidogrel [Plavix] 75 mg PO DAILY #30 tab GlipiZIDE [Glucotrol] 5 mg PO DAILY #30 tab MetFORMIN [glucoPHAGE] 500 mg PO DAILY #30 tab Nebivolol [Bystolic] 2.5 mg PO DAILY #30 tab NIFEdipine ER [Procardia XL] 120 mg PO DAILY #30 ter SITagliptin [Januvia] 50 mg PO DAILY #30 tab Sodium Bicarbonate Tab 650 mg PO TID #90 tab Topiramate [Topamax] 50 mg PO BID #60 tab - Follow Up Plan Condition: FAIR Disposition: HOME/ ROUTINE Instructions: Nebivolol, Pancreatic Cancer, Sitagliptin, Heart Healthy Diet, PET-CT Scan, Acute Kidney Failure (DC), Anemia of Chronic Disease (DC), Clopidogrel, Glipizide and Metformin, Nifedipine, Sodium Bicarbonate, Topiramate , Metabolic Acidosis (GEN) Additional Instructions: You are to take the following medications ONLY: For your blood pressure: Procardia XL 120mg by mouth daily, Bystolic 2.5 mg by mouth daily. For your Diabetes" Januvia 50mg by mouth daily, Metformin 500mg by mouth daily For your history of CAD - please take Plavix 75mg by mouth daily. For your kidneys: please take sodium bicarbonate 650 by mouth three times a day. Continue taking topamax 50mg by mouth twice a day and Nuedexta 1 tablet by mouth twice a day. PLEASE make an appointment to see Dr. Hawley on Tuesday April 11, 2017 - he is the hepatobillary surgeon who will have you get a PET scan to make sure the cancer is no where else in your body except near your pancreas. If the cancer is no where else, you will be eligible for surgery. Please continue to follow up with Dr. Hawley closely to have all this arranged. Please make a follow up appointment with the fishing boat mate doctor, Dr. Carter - to manage your cancer and anemia. Please make a follow up appointment with Dr. Juárez, the civil engineering director- within 1 week to manage your kidneys. PLEASE follow with these physicians closely to better manage your care. ---- Debe margo SOLO los siguientes medicamentos: Para roland presin arterial: Procardia XL 120 mg por va oral al da, Bystolic 2.5 mg por va oral al da. Para roland diabetes "Januvia 50 mg por va oral al da, 500 mg de metformina por v a oral al da Para roland historial de CAD, tome Plavix 75 mg por va oral todos los foley. Para suhail riones: tome el bicarbonato de sodio 650 por va oral lianne veces al d a. Contine tomando topamax 50mg por va oral dos veces al da y Nuedexta 1 tableta por va oral dos veces al da. SANTA jovan rosanna para mac al Dr. Hawley el mircoles 2017 - l es el cirujano hepatobiliar que le pedir que se santa un PET para asegurarse de que el cncer no est en otra parte de roland cuerpo, excepto cerca del pncreas. Si el cncer no est en otro lugar, ser elegible para la ciruga. Contine haciendo un seguimiento cercano con el Dr. Hawley para tener todo esto arreglado. Santa jovan rosanna de seguimiento con el mdico hematlogo, Dr. Carter, para controlar roland cncer y roland anemia. Santa jovan rosanna de seguimiento con el Dr. Juárez, el nefrlogo, dentro de 1 semana para administrar suhail riones. POR FAVOR, siga con estos mdicos de cerca para administrar mejor roland atencin. Referrals: [facility] [Outside] Edu Carter MD [Staff Provider] - Martin Corona MD [Staff Provider] - Marty Juárez MD [Staff Provider] - Hawk Hawley MD [Staff Provider] - Singh Gutierrez MD [Staff Provider] - 04/24/17 2:00 pm (APPOINTMENT MADE FOR DR GUTIERREZ AT [facility] 4th FLOOR AT 2PM ON 04/24/17) <Kvng Hart - Last Filed: 04/11/17 14:18> Provider - Provider Date of Admission: 03/30/17 19:08 Attending physician: Kvng Hart MD Hospital Course - Lab Results Lab Results: Micro Results 03/30/17 15:45 Blood Blood Culture - Final NO GROWTH AFTER 5 DAYS 03/30/17 15:45 Blood Gram Stain - Final TEST NOT PERFORMED 03/30/17 15:15 Blood Blood Culture - Final NO GROWTH AFTER 5 DAYS 03/30/17 15:15 Blood Gram Stain - Final TEST NOT PERFORMED 03/30/17 18:43 Body Fluid - Bowel Ova and Parasite Concentrate Exam - Final 03/31/17 10:14 Urine Urine Culture - Final No Growth (<1,000 CFU/ML) 03/30/17 18:43 Stool Stool Culture - Final NO SALMONELLA, SHIGELLA OR CAMPYLOBACTER ISOLATED. Most Recent Lab Values WBC 3.6 K/uL (4.8-10.8) L 04/09/17 07:45 RBC 2.79 Mil/uL (3.80-5.20) L 04/09/17 07:45 Hgb 8.4 g/dL (11.0-16.0) L 04/09/17 07:45 Hct 25.5 % (34.0-47.0) L 04/09/17 07:45 MCV 91.4 fL (81.0-99.0) 04/09/17 07:45 MCH 30.0 pg (27.0-31.0) 04/09/17 07:45 MCHC 32.9 g/dL (33.0-37.0) L 04/09/17 07:45 RDW 15.7 % (11.5-14.5) H 04/09/17 07:45 Plt Count 176 K/uL (130-400) 04/09/17 07:45 MPV 9.0 fL (7.2-11.7) 04/09/17 07:45 Neut % (Auto) 48.4 % (50.0-75.0) L 04/09/17 07:45 Lymph % (Auto) 39.7 % (20.0-40.0) 04/09/17 07:45 Coal % (Auto) 7.1 % (0.0-10.0) 04/09/17 07:45 Eos % (Auto) 3.9 % (0.0-4.0) 04/09/17 07:45 Baso % (Auto) 0.9 % (0.0-2.0) 04/09/17 07:45 Neut # (Auto) 1.7 K/uL (1.8-7.0) L 04/09/17 07:45 Lymph # (Auto) 1.4 K/uL (1.0-4.3) 04/09/17 07:45 Coal # (Auto) 0.3 K/uL (0.0-0.8) 04/09/17 07:45 Eos # (Auto) 0.1 K/uL (0.0-0.7) 04/09/17 07:45 Baso # (Auto) 0.0 K/uL (0.0-0.2) 04/09/17 07:45 Neutrophils % (Manual) 56 % (50-75) 03/30/17 19:59 Band Neutrophils % 36 % (0-2) H* 03/30/17 19:59 Lymphocytes % (Manual) 4 % (20-40) L 03/30/17 19:59 Monocytes % (Manual) 4 % (0-10) 03/30/17 19:59 Platelet Estimate Slightly decreased (NORMAL) L 03/30/17 19:59 RBC Morphology Normal 03/30/17:59 Retic Count 1.5 % (0.5-1.5) 03/31/17 07:09 PT 13.6 SECONDS (9.7-12.2) H 04/04/17 07:30 INR 1.2 04/04/17 07:30 pO2 63 mm/Hg (30-55) H 03/30/17 19:50 VBG pH 7.34 (7.32-7.43) 03/30/17 19:50 VBG pCO2 26 mmHg (40-60) L 03/30/17 19:50 VBG HCO3 16.9 mmol/L 03/30/17 19:50 VBG Total CO2 14.8 mmol/L (22-28) L 03/30/17 19:50 VBG O2 Sat (Calc) 97.8 % (40-65) H 03/30/17 19:50 VBG Base Excess -10.1 mmol/L (0.0-2.0) L 03/30/17 19:50 VBG Potassium 4.4 mmol/L (3.6-5.2) 03/30/17 19:50 Sodium 139.0 mmol/l (132-148) 03/30/17 19:50 Chloride 117.0 mmol/L (98-107) H 03/30/17 19:50 Glucose 137 mg/dl (65-105) H 03/30/17 19:50 Lactate 0.9 mmol/L (0.7-2.1) 03/30/17 19:50 Sodium 139 mmol/L (132-148) 04/09/17 07:45 Potassium 3.7 mmol/L (3.6-5.2) 04/09/17 07:45 Chloride 116 mmol/L (98-107) H 04/09/17 07:45 Carbon Dioxide 14 mmol/L (22-30) L 04/09/17 07:45 Anion Gap 12 (10-20) 04/09/17 07:45 BUN 12 mg/dL (7-17) 04/09/17 07:45 Creatinine 2.5 mg/dL (0.7-1.2) H 04/09/17 07:45 Est GFR ( Amer) 23 04/09/17 07:45 Est GFR (Non-Af Amer) 04/09/17 07:45 POC Glucose (mg/dL) 135 mg/dL (65-110) H 04/09/17 16:37 Random Glucose 94 mg/dL (65-105) 04/09/17 07:45 Hemoglobin A1c 5.1 % (4.2-6.5) 03/30/17 19:59 Lactic Acid 0.8 mmol/L (0.7-2.1) 03/31/17 07:09 Calcium 8.0 mg/dl (8.6-10.4) L 04/09/17 07:45 Phosphorus 3.8 mg/dL (2.5-4.5) 04/09/17 07:45 Magnesium 2.0 mg/dL (1.6-2.3) 04/09/17 07:45 Iron 44 ug/dL (37-170) 04/01/17 08:34 TIBC 218 ug/dL (250-450) L 04/01/17 08:34 % Saturation 20 (20-55) 04/01/17 08:34 Ferritin 105.0 ng/mL 04/01/17 08:34 Total Bilirubin 0.8 mg/dL (0.2-1.3) 04/09/17 07:45 GGT 1234 U/L (8-78) H 04/06/17 11:29 AST 22 U/L (14-36) 04/09/17 07:45 ALT 28 U/L (9-52) 04/09/17 07:45 Alkaline Phosphatase 335 U/L (38-126) H 04/09/17 07:45 Total Protein 6.3 g/dL (6.3-8.3) 04/09/17 07:45 Albumin 2.7 g/dL (3.5-5.0) L 04/09/17 07:45 Globulin 3.7 gm/dL (2.2-3.9) 04/09/17 07:45 Albumin/Globulin Ratio 0.7 (1.0-2.1) L 04/09/17 07:45 Ceruloplasmin 35 mg/dL (18-53) 04/01/17 08:34 Triglycerides 115 mg/dL (0-149) D 03/31/17 07:09 Cholesterol 186 mg/dL (0-199) 03/31/17 07:09 LDL Cholesterol Direct 97 mg/dL (0-129) 03/31/17 07:09 HDL Cholesterol 37 mg/dL (30-70) 03/31/17 07:09 Lipase 105 U/L (23-300) 03/30/17 13:39 Alpha Fetoprotein 2.3 ng/mL (0.0-7.5) 04/07/17 07:31 CA 19-9 Antigen 81.7 U/mL (0-37) H D 04/07/17 07:31 Venous Blood Potassium 4.4 mmol/L (3.6-5.2) 03/30/17 19:50 Urine Color Romi (YELLOW) 04/03/17 14:39 Urine Clarity Hazy (Clear) 04/03/17 14:39 Urine pH 5.0 (5.0-8.0) 04/03/17 14:39 Ur Specific Brea 1.018 (1.003-1.030) 04/03/17 14:39 Urine Protein 3+ mg/dL (NEGATIVE) H 04/03/17 14:39 Urine Glucose (UA) 1+ mg/dL (Normal) 04/03/17 14:39 Urine Ketones Negative mg/dL (NEGATIVE) 04/03/17 14:39 Urine Blood 1+ (NEGATIVE) H 04/03/17 14:39 Urine Nitrate Negative (NEGATIVE) 04/03/17 14:39 Urine Bilirubin Negative (NEGATIVE) 04/03/17 14:39 Urine Urobilinogen Normal mg/dL (0.2-1.0) 04/03/17 14:39 Ur Leukocyte Esterase Neg Maile/uL (Negative) 04/03/17 14:39 Urine WBC (Auto) 2 /hpf (0-5) 04/03/17 14:39 Urine RBC (Auto) 3 /hpf (0-3) 04/03/17 14:39 Ur Squamous Epith Cells 1 /hpf (0-5) 04/03/17 14:39 Urine Bacteria Occ (<OCC) H 04/03/17 14:39 Hyaline Casts 0-2 /lpf (0-2) 04/03/17 14:39 Ur Random Sodium 60 mmol/L 04/03/17 14:39 Ur Random Potassium 24.4 mmol/L 04/03/17 14:39 Urine Chloride 46 mmol/L (32-290) 04/03/17 14:39 Stool Leukocytes, Qual Negative (NEGATIVE) 03/30/17 19:41 Vancomycin Trough 15.4 ug/mL (5.0-10.0) H 04/02/17 07:10 IgM 141.2 mg/dL (40.0-230.0) 04/07/17 14:18 CAROLA 6 Profile Negative (NEGATIVE) 04/01/17 08:34 Anti-Mitochondrial Ab Negative (Negative) 04/01/17 08:34 Anti-Smooth Muscle Ab Negative (Negative) 04/01/17 08:34 Liver/Kid Microsomes Ab <=20.0 U (<=20.0) 04/01/17 08:34 C. difficile Ag & Toxin Negative (NEGATIVE) 04/06/17 19:25 Hepatitis A IgM Ab Negative (NEGATIVE) 04/01/17 08:34 Hep Bs Antigen Negative (NEGATIVE) 04/01/17 08:34 Hep B Core IgM Ab Negative (NEGATIVE) 04/01/17 08:34 Hepatitis C Antibody Negative (NEGATIVE) 04/01/17 08:34 Blood Type O POSITIVE 04/04/17 11:14 Antibody Screen Negative 04/04/17 11:14 Attending/Attestation - Attestation I have personally seen and examined this patient.: Yes I have fully participated in the care of the patient.: Yes I have reviewed all pertinent clinical information, including history, physical exam and plan: Yes Notes (Text): Discharge plan explained to the patient and her family in [place] She will have out patient PET scan and follow surgery I agree with the resident's documentation of the assessment and the plan
[2017-04-09 16:11] VITALS: TEMP 97.8; O2SAT 98
--- NOTE | 2017-04-09 20:36 | CP.PCM.PN ---
Subjective - Date & Time of Evaluation Date of Evaluation: 04/09/17 Time of Evaluation: 08:50 - Subjective Subjective: No complaints. Objective - Vital Signs/Intake and Output Vital Signs (last 24 hours): Temp Pulse Resp BP Pulse Ox 97.8 F 74 20 160/70 H 98 04/09/17 16:00 04/09/17 16:00 04/09/17 16:00 04/09/17 16:00 04/09/17 16:00 Intake and Output: 04/09/17 04/10/17 18:59 06:59 Intake Total 400 Output Total 200 Balance 200 - Medications Medications: Current Medications Acetaminophen (Tylenol 325mg Tab) 650 mg PO Q6 PRN PRN Reason: Fever >100.4 F Last Admin: 04/03/17 17:24 Dose: 650 mg Benzocaine/Menthol (Cepacol Sore Throat) 1 ramone MT Q4 PRN Last Admin: 04/07/17 10:38 Dose: 1 ramone Heparin Sodium (Porcine) (Heparin) 5,000 units SC Q12 [facility] Last Admin: 04/03/17 21:14 Dose: Not Given Piperacillin Sod/Tazobactam (Sod 2.25 gm/ Sodium Chloride) 100 mls @ 100 mls/ hr IV Q6H [facility] Last Admin: 04/09/17 16:18 Dose: 100 mls/hr Insulin Human Regular (Novolin R) 0 unit SC ACHS [facility] PRN Reason: Protocol Last Admin: 04/09/17 17:30 Dose: Not Given Lactobacillus Acidophilus (Bacid Acidophilus) 1 cap PO BID [facility] Last Admin: 04/09/17 17:50 Dose: 1 cap Nebivolol (Bystolic) 5 mg PO DAILY [facility] Nifedipine (Procardia Xl) 120 mg PO DAILY [facility] Ondansetron HCl (Zofran Inj) 4 mg IVP Q6H PRN PRN Reason: Nausea/Vomiting Last Admin: 04/03/17 21:09 Dose: 4 mg Pantoprazole Sodium (Protonix Ec Tab) 40 mg PO DAILY [facility] Sodium Bicarbonate (Sodium Bicarbonate Tab) 650 mg PO TID [facility] Last Admin: 04/09/17 17:51 Dose: 650 mg Topiramate (Topamax) 50 mg PO BID [facility] Last Admin: 04/09/17 17:50 Dose: 50 mg - Labs Labs: 04/09/17 07:45 04/09/17 07:45 PT 13.6 SECONDS (9.7-12.2) H 04/04/17 07:30 INR 1.2 04/04/17 07:30 - Head Exam Head Exam: ATRAUMATIC - Eye Exam Eye Exam: Normal appearance - ENT Exam ENT Exam: Mucous Membranes Dry - Respiratory Exam Respiratory Exam: NORMAL BREATHING PATTERN - Cardiovascular Exam Cardiovascular Exam: +S1, +S2 - GI/Abdominal Exam GI & Abdominal Exam: Normal Bowel Sounds Assessment and Plan (1) Cholangiocarcinoma Assessment & Plan: hepatibiliary surgery eval. ? resectable if not a surgical candidate, for GI placement of metal stent and outpatient chemotherapy Status: Acute (2) Anemia Assessment & Plan: chronic disease Status: Acute
[2017-04-10 00:44] VITALS: BP 155/63; PULSE 66
[2017-04-10] MEDS ORDERED: Pantoprazole 40 mg EC Tab PO SCH (10:00)
[2017-04-10] MEDS ORDERED: NIFEdipine 60 mg ER Tab PO SCH (10:00)
[2017-04-12 01:18] LABS: ANCA SCREEN NEGATIVE (NEGATIVE)
== END 2017-04-09 21:05 | disposition home or self-care (01) | DRG 436 ==
LOC: C.ER 11:33 → C.3T 19:08 → C.9E 19:08 → C.6T 04-02 01:01
PROVIDERS: ADMIT Internal Medicine; ATTEND Internal Medicine
PROC: 0F798DZ Dilation of Common Bile Duct with Intraluminal Device, Via Natural or Artificial Opening Endoscopic (ICD-10-PCS; principal; 2017-04-04 13:05)
DX: C22.1 Intrahepatic bile duct carcinoma (principal); E87.2 Acidosis; N17.9 Acute kidney failure, unspecified; K86.2 Cyst of pancreas; I50.9 Heart failure, unspecified; I13.0 Hypertensive heart and chronic kidney disease with heart failure and stage 1 through stage 4 chronic kidney disease, or unspecified chronic kidney disease; E11.22 Type 2 diabetes mellitus with diabetic chronic kidney disease; K26.9 Duodenal ulcer, unspecified as acute or chronic, without hemorrhage or perforation; I31.3 Pericardial effusion (noninflammatory); D64.9 Anemia, unspecified; D72.825 Bandemia; E87.6 Hypokalemia; F41.9 Anxiety disorder, unspecified; I25.10 Atherosclerotic heart disease of native coronary artery without angina pectoris; K52.9 Noninfective gastroenteritis and colitis, unspecified; K74.60 Unspecified cirrhosis of liver; M81.0 Age-related osteoporosis without current pathological fracture; N18.9 Chronic kidney disease, unspecified; Z79.84 Long term (current) use of oral hypoglycemic drugs; Z95.5 Presence of coronary angioplasty implant and graft

== ENCOUNTER 2017-05-06 13:53 | Inpatient (IN) | payer MEDICARE, MEDICAID ==
[2017-05-06 13:53] VITALS: BMI 27.8
[2017-05-06] MEDS ORDERED: Sodium Chloride 0.9% 1,000 ML IV ONE (14:09)
[2017-05-06] MEDS ORDERED: HYDROmorphone 1 mg/ml ISec IVP STA (14:09)
[2017-05-06] MEDS ORDERED: Sodium Chloride 0.9% 1,000 ML ONE (14:22)
[2017-05-06 14:36] LABS: BASO % 0.1 % (0.0-2.0); EOS % 0.7 % (0.0-4.0); HEMOGLOBIN 8.8 g/dL (11.0-16.0); LYMPH % 14.2 % (20.0-40.0); MEAN CELL VOLUME 92.1 fL (81.0-99.0); MEAN CORPUSCULAR HGB CONC 33.7 g/dL (33.0-37.0); MEAN PLATELET VOLUME 9.3 fL (7.2-11.7); MONO # 0.3 K/uL (0.0-0.8); MONO % 4.7 % (0.0-10.0); NEUT # 5.7 K/uL (1.8-7.0); NEUT % 80.3 % (50.0-75.0); RBC 2.85 Mil/uL (3.80-5.20); RED CELL DISTRIBUTION WIDTH 15.1 % (11.5-14.5); WHITE BLOOD COUNT 7.1 K/uL (4.8-10.8)
--- NOTE | 2017-05-06 14:46 | C.PDOC ---
History Of Present Illness Patient is a 76 y/o female, with a Hx of HTN and pancreatic cancer, who presents to the ED with a complaint of generalized abdominal pain radiating to the back associated with vomiting. Patient's pancreatic cancer is still in the process for staging evaluation. Patient notes pain is severe and constant, not exacerbated by anything. Patient admits having a previous similar episode and was hospitalized 1 month ago; patient denies using any pain medicine. Patient's PMD is Dr Mickey Suh. No other physical complaints at this time. Time Seen by Provider: 05/06/17 14:02 Chief Complaint (Nursing): Abdominal Pain History Per: Patient History/Exam Limitations: no limitations Onset/Duration Of Symptoms: Hrs (today) Current Symptoms Are (Timing): Still Present Location Of Pain/Discomfort: Diffuse Radiation Of Pain To:: Back Associated Symptoms: Vomiting Exacerbating Factors: None Recent travel outside of the [place]: No Past Medical History Reviewed: Historical Data, Nursing Documentation, Vital Signs Vital Signs: Last Vital Signs Temp 97.6 F 05/06/17 14:00 Pulse 53 L 05/06/17 14:00 Resp 18 05/06/17 14:00 BP 171/64 H 05/06/17 14:00 Pulse Ox 99 05/06/17 14:56 - Medical History PMH: Arthritis, Diabetes, HTN, Hypercholesterolemia, Migraine, Osteoporosis, Pancreatitis Denies: Chronic Kidney Disease Surgical History: Appendectomy, Cholecystectomy, Coronary Stent (X4) Denies: Pacemaker - [facility] Procedures CORONAR ARTERIOGR-2 CATH (03/07/13) DILATION OF COMMON BILE DUCT WITH INTRALUMINAL DEVICE, ENDO (03/30/17) LEFT HEART CARDIAC CATH (03/07/13) LT HEART ANGIOCARDIOGRAM (03/07/13) Family History: States: No Known Family Hx - Social History Hx Tobacco Use: No Hx Alcohol Use: No Hx Substance Use: No - Immunization History Hx Tetanus Toxoid Vaccination: No Hx Influenza Vaccination: Yes (2017) Hx Pneumococcal Vaccination: No Review Of Systems Gastrointestinal: Positive for: Vomiting, Abdominal Pain Musculoskeletal: Positive for: Back Pain (radiated from abdomen) Physical Exam - Physical Exam Appears: In Acute Distress, Other (lying flat, moaning) Skin: Normal Color, Warm, Diaphoretic Head: Atraumatic, Normacephalic Eye(s): bilateral: Normal Inspection, EOMI Oral Mucosa: Moist Chest: Symmetrical Cardiovascular: Rhythm Regular, No Murmur Respiratory: Normal Breath Sounds, No Rales, No Rhonchi, No Wheezing Gastrointestinal/Abdominal: Bowel Sounds (quiet), Soft, Tenderness (diffuse, mild), Guarding, No Rebound Neurological/Psych: Oriented x3, Normal Speech, Normal Cognition ED Course And Treatment - Laboratory Results Result Diagrams: 05/06/17 14:26 05/06/17 14:26 Lab Interpretation: Abnormal (WBC 7.1 with left shift, Hgb 8.8, HCO3 17, BUN 31 , Cr 2.5, Elevated LFTs, normal bili 1.1, Lipase 332) O2 Sat by Pulse Oximetry: 99 Pulse Ox Interpretation: Normal Progress Note: Dilaudid, reglan, zofran, and IV fluids administered. UA ordered. Reevaluation Time: 14:58 Reassessment Condition: Unchanged (Patient continues to c/o abdominal pain) - Physician Consult Information Physician Contacted: Brad Zapata Outcome Of Conversation: Patient to be admitted for pain management of pancreatic cancer. Disposition - Disposition Disposition: HOSPITALIZED Disposition Time: 14:59 Condition: FAIR - POA Present On Arrival: None - Clinical Impression Clinical Impression: Renal insufficiency, Elevated liver enzymes, Pancreatic cancer - Scribe Statement The provider has reviewed the documentation as recorded by the Scribe Micaela Bloom All medical record entries made by the Scribe were at my direction and personally dictated by me. I have reviewed the chart and agree that the record accurately reflects my personal performance of the history, physical exam, medical decision making, and the department course for this patient. I have also personally directed, reviewed, and agree with the discharge instructions and disposition.
[2017-05-06 14:47] LABS: ALB/GLOB RATIO 0.8 (1.0-2.1); ALBUMIN 3.2 g/dL (3.5-5.0); CALCIUM 8.6 mg/dl (8.6-10.4)
--- NOTE | 2017-05-06 15:56 | CP.PCM.HP ---
<Wilmar Avilez - Last Filed: 05/06/17 20:04> History of Present Illness - History of Present Illness History of Present Illness: CC: abdominal pain HPI: 76 Female with PMHx of invasive cholangiocarcinoma , pancreatic cyst, liver cirrhosis HTN, DM, CKD, RA, OA presents to the ED with abdominal pain. Patient reports pain began suddenly this afternoon while walking to [employer]. She describes pain as a constant, sharp pain located on the right side of her abdomen, rating a 10/10 on the severity scale. Pain associated with N/V today - family reports 8 episodes of non-bloody emesis shortly after onset of pain. Patient denies needing any medications for pain while home. Denied fever, chills , headache, chest pain, SOB, diarrhea, or urinary symptoms. No sick contacts. Pt with recent admission at [facility] from 03/30 - 04/09/17 with diagnoses of invasive cholangiocarcinoma, pancreatic cyst and liver cirrhosis. Family at bedside helpful in elucidating care after recent discharge. Per family, pt had PET scan as outpatient at [place]. Family states pt had surgical date of May [address] Hawley, for which pt had been cleared by cardiology. Family states they have appointments at future dates for [facility] [employer] (Dr. Juárez's group), and Hem/Onc Dr. Carter. PMHx: invasive cholangiocarcinoma , pancreatic cyst, liver cirhosis, HTN, DM, CKD, RA, OA, PSHx: Cholecystectomy, Appendectomy All: Fish (anaphylaxis); Cipro (anaphylaxis) SHx: Denied tobacco, alcohol, illicit drug use FHx: Unremarkable PMD: Dr. Mickey Suh Meds at previous discharge: HTN: Procardia XL 120mg by mouth daily, Bystolic 2.5 mg by mouth daily. DM: Januvia 50mg by mouth daily, Metformin 500mg by mouth daily CAD: Plavix 75mg by mouth daily. Renal: Sodium bicarbonate 650 by mouth three times a day. Neuro: topamax 50mg by mouth twice a day and Nuedexta 1 tablet by mouth twice a day. Present on Admission - Present on Admission Any Indicators Present on Admission: No Review of Systems - Constitutional Constitutional: absent: Chills, Fever - EENT Eyes: absent: Change in Vision Nose/Mouth/Throat: absent: Nasal Congestion - Cardiovascular Cardiovascular: absent: Chest Pain, Chest Pain at Rest, Dyspnea, Dyspnea on Exertion, Lightheadedness - Respiratory Respiratory: absent: Cough, Hemoptysis - Gastrointestinal Gastrointestinal: Abdominal Pain (RUQ), Nausea, Vomiting (eight times - non- bloody). absent: Constipation, Diarrhea, Dysphagia, Hematemesis, Hematochezia - Genitourinary Genitourinary: absent: Dysuria, Urinary Frequency, Bladder Distension - Musculoskeletal Musculoskeletal: absent: Back Pain, Numbness, Tingling - Neurological Neurological: absent: Tingling, Weakness - Psychiatric Psychiatric: absent: Anxiety, Depression - Endocrine Endocrine: absent: Polyuria Past Patient History - Infectious Disease Hx of Infectious Diseases: None - Past Medical History & Family History Past Medical History?: Yes - Past Social History Smoking Status: Never Smoked - CARDIAC Hx Hypercholesterolemia: Yes Hx Hypertension: Yes Hx Pacemaker: No - PULMONARY Hx Respiratory Disorders: No - NEUROLOGICAL Hx Migraine: Yes - HEENT Hx HEENT Problems: No - RENAL Hx Chronic Kidney Disease: No - ENDOCRINE/METABOLIC Hx Diabetes Mellitus Type 2: Yes - HEMATOLOGICAL/ONCOLOGICAL Hx Blood Transfusions: No Hx Blood Transfusion Reaction: No Hx Cancer: Yes (Hx of colon CA (mass)) - INTEGUMENTARY Hx Dermatological Problems: No - MUSCULOSKELETAL/RHEUMATOLOGICAL Hx Arthritis: Yes Hx Osteoporosis: Yes - GASTROINTESTINAL Hx Pancreatitis: Yes - GENITOURINARY/GYNECOLOGICAL Hx Genitourinary Disorders: No - PSYCHIATRIC Hx Substance Use: No - SURGICAL HISTORY Hx Appendectomy: Yes Hx Cholecystectomy: Yes Hx Coronary Stent: Yes (X4) - ANESTHESIA Hx Anesthesia: Yes Hx Anesthesia Reactions: Yes Hx Malignant Hyperthermia: No Meds Allergies/Adverse Reactions: Allergies Allergy/AdvReac Type Severity Reaction Status Date / Time ciprofloxacin [From Cipro] Allergy ANAPHYLAXIS Verified 05/06/17 13:58 ciprofloxacin HCl Allergy ANAPHYLAXIS Verified 05/06/17 13:58 [From Cipro] seafood Allergy ANAPHYLAXIS Uncoded 05/06/17 13:58 Physical Exam - Constitutional Appears: In Acute Distress (moderate pain, moaning on stretcher), Chronically Ill - Head Exam Head Exam: ATRAUMATIC, NORMAL INSPECTION - Eye Exam Eye Exam: EOMI. absent: Scleral icterus Pupil Exam: PERRL - ENT Exam ENT Exam: Mucous Membranes Moist - Respiratory Exam Respiratory Exam: Clear to Auscultation Bilateral, NORMAL BREATHING PATTERN. absent: Rales, Rhonchi, Wheezes - Cardiovascular Exam Cardiovascular Exam: REGULAR RHYTHM, +S1, +S2 - GI/Abdominal Exam GI & Abdominal Exam: Soft, Tenderness (RUQ/epigastric) - Extremities Exam Extremities exam: Positive for: normal inspection. Negative for: pedal edema, tenderness - Back Exam Back exam: absent: CVA tenderness (L), CVA tenderness (R) - Neurological Exam Neurological exam: Alert, Oriented x3 - Psychiatric Exam Psychiatric exam: Normal Affect, Normal Mood - Skin Skin Exam: Normal Color, Warm Results - Vital Signs Recent Vital Signs: Last Vital Signs Temp 97.6 F 05/06/17 14:00 Pulse 53 L 05/06/17 14:00 Resp 18 05/06/17 14:00 BP 171/64 H 05/06/17 14:00 Pulse Ox 99 05/06/17 15:00 - Labs Result Diagrams: 05/06/17 14:26 05/06/17 14:26 Labs: Laboratory Results - last 24 hr 05/06/17 05/06/17 14:26 14:26 WBC 7.1 D RBC 2.85 L Hgb 8.8 L Hct 26.2 L MCV 92.1 MCH 31.0 MCHC 33.7 RDW 15.1 H Plt Count 131 MPV 9.3 Neut % (Auto) 80.3 H Lymph % (Auto) 14.2 L Perry % (Auto) 4.7 Eos % (Auto) 0.7 Baso % (Auto) 0.1 Neut # (Auto) 5.7 Lymph # (Auto) 1.0 Perry # (Auto) 0.3 Eos # (Auto) 0.0 Baso # (Auto) 0.0 Sodium 139 Potassium 4.0 Chloride 109 H Carbon Dioxide 17 L Anion Gap 17 BUN 31 H Creatinine 2.5 H Est GFR ( Amer) 23 Est GFR (Non-Af Amer) 19 Random Glucose 178 H Calcium 8.6 Total Bilirubin 1.1 AST 230 H D ALT 78 H D Alkaline Phosphatase 438 H D Total Protein 7.5 Albumin 3.2 L Globulin 4.3 H Albumin/Globulin Ratio 0.8 L Lipase 332 H Assessment & Plan - Assessment and Plan (Free Text) Plan: Abdominal Pain Admit to med/surg Afebrile, No wbc ct Diagnosis of Cholangiosarcoma on previous admission: 03/30 - 04/09/17 Possible etiology of stent obstruction Lipase 332 Zofran 4mg IV Q6H PRN for nausea dilaudid 2mg IV Q4H PRN for pain Zosyn 2.25 gm IV Q6H for empiric coverage Cholangiosarcoma/Transaminits Heme/Onc consulted - Dr. Carter - help appreciated Surgery consulted - Dr. Hawley - hel appreciated - family states pt with OPDX surgery with Dr. Hawley GI consulted - Dr. Bills- help appreciated s/p ERCP with sphincterotomy, dilation and biliary stent placement on 04/04/17 Ct A/P (05/06/17): Metallic stent in CBD, with persistent residual moderate dilatation of CBD. Enlarged panc head w diffuse atrphty of body/tail concerning for carcinoma with biliary obstruction. Enlarged nodular liver. Solitary lesion in spleen no completely characterized on exam. CT Pancreas protocol scan (04/05/17) - Atrophy of the pancreatic body and tail with prominence of the pancreatic head, lesion surrounding/adjacent to the distal common duct cannot be excluded, endoscopic ultrasound may be helpful for further evaluation; enlarged cirrhotic liver with fatty infiltration; cholecystectomy; pneumobilia with biliary stent; inflammation and edema in the mary hepatis. Further recs per attending evaluation as per surgical team CT head/chest/neck (04/05/17) unremarkable for metastatic disease though studies are limited in the absence of IV contrast 2/2 CKD with JADE MRCP (03/31/17): showed moderately to markedly dilated proximal common bile duct with large filling defect noted in the distal common bile duct, which could represent multiple choledocholithiasis (differential consideration includes less likely distal CBD neoplasm or stricture). Also noted [id number] intrahepatic biliary ductal dilatation, cirrhosis with findings suggestive of portal hypertension including splenomegaly and trace ascites, and 6.3 millimeter cyst at the pancreatic head. - Common bile duct, stricture biopsy: Invasive adenocarcinoma, moderately differentiated AST/ALT 230/78, Alk Phos 438 on admission - elevated over last admission, but normalized by discharge T Bili 1.1 CA 19-9 level: 109 Hypertensive urgency Markedly elevated at admission; large pain component * Bystolic and nifedipine XL continued (home meds) * Hydralazine 10mg IV Q6H PRN for SBP > 160 Lipid panel noted from prior admission: Tri, Chol: 186, LDL: 97, HDL: 37 Abnormal UA Pt denies symptoms UA (05/06/17): mod bacteria, 2+ LE, 37 WBC - f/u urine culture Zosyn 2.25 gm IV Q6H for empiric coverage Diastolic CHF (04/17/17): EF 55-60%, mod diastolic dysfxn. Moderate Pulm Htn. Trace pericardial effusion. Procardia XL 120mg PO daily, Bystolic 2.5 mg PO daily. CAD Plavix 75mg PO Daily CKD, Stage 4 Nephrology consulted - Dr. Juárez - help appreciated - patient is established with this group -Not on dialysis -Baseline creatine 1-1.5, though on recent admission 2.2 -D5/NS @ 75cc/hr + NaBicarb 650mg PO TID Met Acidosis ABG: ph 7.27, CO2 17 -D5/NS @ 75cc/hr + NaBicarb 650mg PO TID Proteinuria 3+ protein in Urine Monitor Anemia of chronic disease Baseline hemoglobin 10 - Admission 8.8 Last admission iron studies: * Retic count 1.5, Iron 23, TIBC 259, % Saturation 9, Ferritin 103 Monitor AM labs Diabetes Mellitus * Accuchecks * Hypoglycemia protocol * A1C- 5.1 * Hold home metformin due to elevated Cr * Januvia 50mg PO Daily * ISS- low Prophylactic measure * GI PPX: Protonix 40mg IV daily * DVT PPX: SCDs, Lovenox 30mg SC Daily Discussed with Dr. Jodi Avilez PGY-2 <Brad Zapata - Last Filed: 05/13/17 07:09> Results - Vital Signs Recent Vital Signs: Last Vital Signs Temp 98.1 F 05/12/17 23:37 Pulse 60 05/12/17 23:37 Resp 20 05/12/17 23:37 BP 169/80 H 05/12/17 23:37 Pulse Ox 100 05/12/17 23:37 - Labs Result Diagrams: 05/12/17 06:37 05/12/17 06:37 Labs: Laboratory Results - last 24 hr 05/12/17 05/12/17 05/12/17 06:37 07:12 11:22 Sodium 140 Potassium 3.7 Chloride 109 H Carbon Dioxide 22 Anion Gap 13 BUN 28 H Creatinine 2.3 H Est GFR ( Amer) 25 Est GFR (Non-Af Amer) 21 POC Glucose (mg/dL) 110 133 H Random Glucose 98 Calcium 7.8 L Phosphorus 3.6 Magnesium 2.1 Total Bilirubin 0.9 AST 42 H ALT 31 Alkaline Phosphatase 403 H Total Protein 6.2 L Albumin 2.4 L Globulin 3.8 Albumin/Globulin Ratio 0.6 L 05/12/17 05/12/17 16:35 21:30 Sodium Potassium Chloride Carbon Dioxide Anion Gap BUN Creatinine Est GFR ( Amer) Est GFR (Non-Af Amer) POC Glucose (mg/dL) 160 H 92 Random Glucose Calcium Phosphorus Magnesium Total Bilirubin AST ALT Alkaline Phosphatase Total Protein Albumin Globulin Albumin/Globulin Ratio Attending/Attestation - Attestation I have personally seen and examined this patient.: Yes I have fully participated in the care of the patient.: Yes I have reviewed all pertinent clinical information: Yes Notes (Text): Medical attending: Patient was seen and examined by me. Agree with the above note by the resident Please note this is a later signing of this note by me. I did see the patient on the day of admission however was away the subsequent day and was not able to review the note. This is a patient known to the hospitalist service from previous admission. As mentioned above in the resident's note she has a history of maliginancy and invasive choleangio carcinoma - during the last admission she had placment of a bare metal stent and the family informs us that she is to undergo surgery on May 18. She was reportedly doing ok until she had a sudden onset of ARTUR pain and she was brought by her family members to the emergency room again thank you Brad Zapata
[2017-05-06] MEDS ORDERED: Sodium Chloride 0.9% 1,000 ML IV SCH (16:30)
[2017-05-06 16:51] LABS: SQUAMOUS EPITHIAL 1 /hpf (0-5); URINE BACTERIA MOD (<OCC); URINE BILIRUBIN NEGATIVE (NEGATIVE); URINE BLOOD 1+ (NEGATIVE); URINE CLARITY Hazy (Clear); URINE GLUCOSE (UA) 2+ mg/dL (Normal); URINE LEUKOCYTE ESTERASE 2+ Leu/uL (Negative); URINE PROTEIN 3+ mg/dL (NEGATIVE); URINE UROBILINOGEN NORMAL mg/dL (0.2-1.0); WBC CLUMPS FEW /hpf
[2017-05-06 16:58] LABS: URINE COLOR YELLOW (YELLOW)
--- NOTE | 2017-05-06 17:33 | CT ---
PROCEDURE: CT Abdomen and Pelvis without intravenous contrast HISTORY: hx panc ca COMPARISON: 04/05/2017 and 03/30/2017. TECHNIQUE: CT scan of the abdomen was performed without administration of intravenous contrast. Oral contrast was not administered. Coronal and sagittal reformatted images were obtained. Radiation dose: Total exam DLP = Total exam DLP = 390.26 mGy-cm. This CT exam was performed using one or more of the following dose reduction techniques: Automated exposure control, adjustment of the mA and/or kV according to patient size, and/or use of iterative reconstruction technique. FINDINGS: LOWER THORAX: The lung bases are clear. There is moderate cardiomegaly and small pericardial effusion. LIVER: Liver is enlarged with nodular contour and enlargement of the right hepatic lobe which extends to the right lower quadrant. There is pneumobilia in the left biliary radicle related to recent surgical intervention. GALLBLADDER AND BILE DUCTS: Surgically absent. Status post placement of metallic stent in the common bile duct. There is persistent moderate dilatation of the common bile duct. PANCREAS: The pancreatic head is enlarged and there is diffuse atrophy of the body and tail of pancreas. No ductal dilatation. SPLEEN: There is a stable low-density lesion in the spleen. ADRENALS: No discrete nodule. KIDNEYS AND URETERS: Both kidneys are normal in size without hydronephrosis or nephrolithiasis. There is a probable cyst in the upper pole of the right kidney. There is nonspecific perinephric fat stranding. VASCULATURE: Unremarkable. No aortic aneurysm. BOWEL: The small bowel loops are normal in caliber. There is moderate amount of stool in the colon. APPENDIX: Normal appendix. PERITONEUM: There is trace free fluid in the pelvis and right lower quadrant. . No free air. LYMPH NODES: No enlarged lymph nodes. BLADDER: Grossly normal in appearance. REPRODUCTIVE: The uterus is normal in size. BONES: No acute fracture. Diffuse bone demineralization and multilevel degenerative disc disease. OTHER FINDINGS: There is a small sliding hiatal hernia. IMPRESSION: 1. Interval placement of metallic stent in the common bile duct with persistent residual moderate dilatation of the common bile duct. Please note evaluation of the common bile duct is limited due to streak artifacts from metallic stent. Enlarged pancreatic head with diffuse atrophy of the body and tail concerning for carcinoma in the head of the pancreas with biliary obstruction. 2. Enlarged nodular liver. 3. Solitary low-density lesion in the spleen not completely characterized on this examination. 4. Moderate cardiomegaly and small pericardial effusion.
[2017-05-06 17:56] LABS: ABG ALLEN TEST PO; ARTERIAL BLOOD GAS O2 SAT 97.6 % (95-98); ARTERIAL BLOOD GAS PCO2 35 mm/Hg (35-45); ARTERIAL BLOOD GAS PH 7.27 (7.35-7.45); ARTERIAL BLOOD GAS PO2 67 mm/Hg (80-100); ARTERIAL BLOOD GAS TCO2 17.2 mmol/L (22-28)
[2017-05-06] MEDS: Piperacill/Tazo 2.25gm in Dex 2.25 GM/50 ML BAG IVPB SCH ×2 (17:58→22:44)
[2017-05-06] MEDS: Dextrose 5%/0.9% NS 1,000 ML IV SCH (18:11)
[2017-05-06] MEDS ORDERED: Glucagon Recombinant 1 mg Inj IM PRN (19:37)
[2017-05-06] MEDS ORDERED: Dextrose 50% SYRINGE Inj (50 ml) IV PRN (19:37)
[2017-05-06] MEDS: (Novolin R) Insulin Human Regular 100 units/ml vial SC SCH (21:32)
--- NOTE | 2017-05-06 23:05 | CP.PCM.CON ---
History of Present Illness - History of Present Illness History of Present Illness: Surgery Consult note. Dr. Hawley 76yo F with PMHx of invasive cholangiocarcinoma, Pancreatic cyst, cirrhosis, HTN , DM, CKD, CAD, RA, OA here for evaluation of abdominal pain. Patient history obtained from patient, and family at bedside. Patient was walking to [employer] when the pain started. She states that she has had similar pain off and on for a while but today the pain became severe and sharp. Associated with nausea and vomiting multiple times (clear, non bilious, non bloody). Denies fevers or chills. States that she was asked by Dr. Hawley to obtain cardiac clearance which she did obtain by Dr. Rueda. She states that she was scheduled for pancreatic surgery by Dr. Hawley on May 18. She denies any urinary complaints. Denies any bowel habit changes. Denies any F/C. No CP/SOB. No sick contacts PMD: Dr. Joan Suh PMHx: Invasive cholangiocarcinoma, Pancreatic Cyst, Cirrhosis, HTN, DM, CKD, RA , OA, CAD PSHx: Cholecystectomy, Appy Family hx: Denies Social Hx: Denies tobacco use, denies etoh use, denies illicit drugs. lives with family Allergy: Ciprofloxacin, Fish Review of Systems - Constitutional Constitutional: absent: Chills, Fever - Cardiovascular Cardiovascular: absent: Chest Pain, Dyspnea - Respiratory Respiratory: absent: Dyspnea - Gastrointestinal Gastrointestinal: Abdominal Pain, Nausea, Vomiting. absent: Diarrhea, Hematemesis, Hematochezia - Genitourinary Genitourinary: absent: Difficulty Urinating, Dysuria - Neurological Neurological: absent: Dizziness, Headaches Past Patient History - Infectious Disease Hx of Infectious Diseases: None - Past Medical History & Family History Past Medical History?: Yes - Past Social History Smoking Status: Never Smoked Alcohol: None Drugs: Denies Home Situation {Lives}: With Family - CARDIAC Hx Hypercholesterolemia: Yes Hx Hypertension: Yes Hx Pacemaker: No - PULMONARY Hx Respiratory Disorders: No - NEUROLOGICAL Hx Migraine: Yes - HEENT Hx HEENT Problems: No - RENAL Hx Chronic Kidney Disease: No - ENDOCRINE/METABOLIC Hx Diabetes Mellitus Type 2: Yes - HEMATOLOGICAL/ONCOLOGICAL Hx Blood Transfusions: No Hx Blood Transfusion Reaction: No Hx Cancer: Yes (Hx of colon CA (mass)) - INTEGUMENTARY Hx Dermatological Problems: No - MUSCULOSKELETAL/RHEUMATOLOGICAL Hx Arthritis: Yes Hx Osteoporosis: Yes - GASTROINTESTINAL Hx Pancreatitis: Yes - GENITOURINARY/GYNECOLOGICAL Hx Genitourinary Disorders: No - PSYCHIATRIC Hx Substance Use: No - SURGICAL HISTORY Hx Appendectomy: Yes Hx Cholecystectomy: Yes Hx Coronary Stent: Yes (X4) - ANESTHESIA Hx Anesthesia: Yes Hx Anesthesia Reactions: Yes Hx Malignant Hyperthermia: No Meds Allergies/Adverse Reactions: Allergies Allergy/AdvReac Type Severity Reaction Status Date / Time ciprofloxacin [From Cipro] Allergy ANAPHYLAXIS Verified 05/06/17 13:58 ciprofloxacin HCl Allergy ANAPHYLAXIS Verified 05/06/17 13:58 [From Cipro] seafood Allergy ANAPHYLAXIS Uncoded 05/06/17 13:58 - Medications Medications: Current Medications Clopidogrel Bisulfate (Plavix) 75 mg PO DAILY [facility] Dextrose (Dextrose 50% Inj) 0 ml IV STAT PRN; Protocol PRN Reason: Hypoglycemia Protocol Dextrose (Glutose 15) 0 gm PO ONCE PRN; Protocol PRN Reason: Hypoglycemia Protocol Enoxaparin Sodium (Lovenox) 30 mg SC DAILY [facility] Glucagon (Glucagen Diagnostic Kit) 0 mg IM STAT PRN; Protocol PRN Reason: Hypoglycemia Protocol Hydralazine HCl (Apresoline) 10 mg IVP Q6H PRN PRN Reason: Systolic Blood Pressure Last Admin: 05/06/17 19:54 Dose: 10 mg Hydromorphone HCl (Dilaudid) 2 mg IVP Q4H PRN PRN Reason: Pain, moderate (4-7) Last Admin: 05/06/17 19:52 Dose: 2 mg Piperacillin Sod/Tazobactam Sod (Zosyn 2.25 Gm Iv Premix) 2.25 gm in 50 mls @ 100 mls/hr IVPB Q6H [facility] PRN Reason: Protocol Last Admin: 05/06/17 22:44 Dose: 100 mls/hr Dextrose/Sodium Chloride (Dextrose 5%/0.9% Ns 1000 Ml) 1,000 mls @ 75 mls/hr IV .[id number] [facility] Last Admin: 05/06/17 18:11 Dose: 75 mls/hr Dextrose (Dextrose 5% In Water 1000 Ml) 1,000 mls @ 0 mls/hr IV .Q0M PRN; Protocol; Per Protocol PRN Reason: Hypoglycemia Protocol Insulin Human Regular (Novolin R) 0 unit SC ACHS [facility] PRN Reason: Protocol Last Admin: 05/06/17 21:32 Dose: Not Given Nebivolol (Bystolic) 2.5 mg PO DAILY [facility] Nifedipine (Procardia Xl) 120 mg PO DAILY [facility] Ondansetron HCl (Zofran Inj) 4 mg IVP Q6H PRN PRN Reason: Nausea/Vomiting Pantoprazole Sodium (Protonix Inj) 40 mg IVP DAILY [facility] Sitagliptin Phosphate (Januvia) 50 mg PO DAILY [facility] Sodium Bicarbonate (Sodium Bicarbonate Tab) 650 mg PO TID [facility] Topiramate (Topamax) 50 mg PO BID JESSICA Last Admin: 05/06/17 17:57 Dose: 50 mg Physical Exam - Constitutional Appears: Non-toxic, No Acute Distress, Chronically Ill - Head Exam Head Exam: ATRAUMATIC, NORMAL INSPECTION, NORMOCEPHALIC - Eye Exam Eye Exam: EOMI, Normal appearance. absent: Scleral icterus - ENT Exam ENT Exam: Mucous Membranes Moist - Respiratory Exam Respiratory Exam: NORMAL BREATHING PATTERN. absent: Accessory Muscle Use, Respiratory Distress - Cardiovascular Exam Cardiovascular Exam: RRR. absent: JVD - GI/Abdominal Exam GI & Abdominal Exam: Soft. absent: Guarding Additional comments: Tenderness to palpation RUQ. No rebound. No guarding. Soft. Does have mild distention. - Extremities Exam Extremities exam: Positive for: normal inspection. Negative for: calf tenderness - Neurological Exam Neurological exam: Alert, Oriented x3 - Psychiatric Exam Psychiatric exam: Normal Affect, Normal Mood - Skin Skin Exam: Dry, Intact, Normal Color, Warm Results - Vital Signs Recent Vital Signs: Last Vital Signs Temp 99.1 F 05/06/17 20:29 Pulse 102 H 05/06/17 21:45 Resp 22 05/06/17 19:47 BP 179/70 H 05/06/17 21:45 Pulse Ox 97 05/06/17 19:47 - Labs Result Diagrams: 05/06/17 14:26 05/06/17 14:26 Labs: Laboratory Results - last 24 hr 05/06/17 05/06/17 05/06/17 14:26 14:26 16:40 WBC 7.1 D RBC 2.85 L Hgb 8.8 L Hct 26.2 L MCV 92.1 MCH 31.0 MCHC 33.7 RDW 15.1 H Plt Count 131 MPV 9.3 Neut % (Auto) 80.3 H Lymph % (Auto) 14.2 L [place] % (Auto) 4.7 Eos % (Auto) 0.7 Baso % (Auto) 0.1 Neut # (Auto) 5.7 Lymph # (Auto) 1.0 [place] # (Auto) 0.3 Eos # (Auto) 0.0 Baso # (Auto) 0.0 Puncture Site pCO2 pO2 HCO3 ABG pH ABG Total CO2 ABG O2 Saturation ABG Base Excess Abel Test ABG Potassium A-a O2 Difference Respiratory Index Glucose Lactate FiO2 Sodium 139 Potassium 4.0 Chloride 109 H Carbon Dioxide 17 L Anion Gap 17 BUN 31 H Creatinine 2.5 H Est GFR ( Amer) 23 Est GFR (Non-Af Amer) 19 POC Glucose (mg/dL) Random Glucose 178 H Calcium 8.6 Total Bilirubin 1.1 AST 230 H D ALT 78 H D Alkaline Phosphatase 438 H D Total Protein 7.5 Albumin 3.2 L Globulin 4.3 H Albumin/Globulin Ratio 0.8 L Lipase 332 H CA 19-9 Antigen Arterial Blood Potassium Urine Color Yellow Urine Clarity Hazy Urine pH 7.0 Ur Specific [place] 1.009 Urine Protein 3+ H Urine Glucose (UA) 2+ H Urine Ketones Negative Urine Blood 1+ H Urine Nitrate Negative Urine Bilirubin Negative Urine Urobilinogen Normal Ur Leukocyte Esterase 2+ H Urine WBC (Auto) 37 H Urine RBC (Auto) 19 H Urine WBC Clumps (Auto) Few H Ur Squamous Epith Cells 1 Urine Bacteria Mod H 05/06/17 05/06/17 05/06/17 16:53 17:18 17:53 WBC RBC Hgb Hct MCV MCH MCHC RDW Plt Count MPV Neut % (Auto) Lymph % (Auto) [place] % (Auto) Eos % (Auto) Baso % (Auto) Neut # (Auto) Lymph # (Auto) [place] # (Auto) Eos # (Auto) Baso # (Auto) Puncture Site Rr pCO2 35 pO2 67 L HCO3 17.0 L ABG pH 7.27 L ABG Total CO2 17.2 L ABG O2 Saturation 97.6 ABG Base Excess -9.9 L Abel Test Po ABG Potassium 3.7 A-a O2 Difference 39.0 Respiratory Index 0.6 Glucose 177 H Lactate 1.2 FiO2 21.0 Sodium 139.0 Potassium Chloride 113.0 H Carbon Dioxide Anion Gap BUN Creatinine Est GFR ( Amer) Est GFR (Non-Af Amer) POC Glucose (mg/dL) 185 H Random Glucose Calcium Total Bilirubin AST ALT Alkaline Phosphatase Total Protein Albumin Globulin Albumin/Globulin Ratio Lipase CA 19-9 Antigen 109 H D Arterial Blood Potassium 3.7 Urine Color Urine Clarity Urine pH Ur Specific [place] Urine Protein Urine Glucose (UA) Urine Ketones Urine Blood Urine Nitrate Urine Bilirubin Urine Urobilinogen Ur Leukocyte Esterase Urine WBC (Auto) Urine RBC (Auto) Urine WBC Clumps (Auto) Ur Squamous Epith Cells Urine Bacteria 05/06/17 21:00 WBC RBC Hgb Hct MCV MCH MCHC RDW Plt Count MPV Neut % (Auto) Lymph % (Auto) [place] % (Auto) Eos % (Auto) Baso % (Auto) Neut # (Auto) Lymph # (Auto) [place] # (Auto) Eos # (Auto) Baso # (Auto) Puncture Site pCO2 pO2 HCO3 ABG pH ABG Total CO2 ABG O2 Saturation ABG Base Excess Abel Test ABG Potassium A-a O2 Difference Respiratory Index Glucose Lactate FiO2 Sodium Potassium Chloride Carbon Dioxide Anion Gap BUN Creatinine Est GFR ( Amer) Est GFR (Non-Af Amer) POC Glucose (mg/dL) 170 H Random Glucose Calcium Total Bilirubin AST ALT Alkaline Phosphatase Total Protein Albumin Globulin Albumin/Globulin Ratio Lipase CA 19-9 Antigen Arterial Blood Potassium Urine Color Urine Clarity Urine pH Ur Specific [place] Urine Protein Urine Glucose (UA) Urine Ketones Urine Blood Urine Nitrate Urine Bilirubin Urine Urobilinogen Ur Leukocyte Esterase Urine WBC (Auto) Urine RBC (Auto) Urine WBC Clumps (Auto) Ur Squamous Epith Cells Urine Bacteria Assessment & Plan - Assessment and Plan (Free Text) Assessment: 76yo F with invasive cholangiocarcinoma with likely involvement of pancreatic head. Also with evidence of UTI - CT noted Plan: - Continue Abx for UTI - f/u GI recs - f/u AM labs - pain management - anti-emetics - continue medical maximization Further recs as per Dr. Marleen Clark PGY1 surgery pager: [phone]
[2017-05-07] MEDS: Piperacill/Tazo 2.25gm in Dex 2.25 GM/50 ML BAG IVPB SCH ×2 (05:01→12:48)
[2017-05-07 06:28] LABS: BASO % 0.1 % (0.0-2.0); HEMOGLOBIN 8.2 g/dL (11.0-16.0); LYMPH # 0.5 K/uL (1.0-4.3); LYMPH % 3.4 % (20.0-40.0); MEAN CELL VOLUME 91.9 fL (81.0-99.0); MEAN CORPUSCULAR HEMOGLOBIN 30.7 pg (27.0-31.0); MEAN CORPUSCULAR HGB CONC 33.4 g/dL (33.0-37.0); MEAN PLATELET VOLUME 9.5 fL (7.2-11.7); MONO # 0.6 K/uL (0.0-0.8); MONO % 4.6 % (0.0-10.0); NEUT # 12.7 K/uL (1.8-7.0); NEUT % 91.9 % (50.0-75.0); PLATELET COUNT 119 K/uL (130-400); RBC 2.68 Mil/uL (3.80-5.20); RED CELL DISTRIBUTION WIDTH 14.8 % (11.5-14.5); WHITE BLOOD COUNT 13.8 K/uL (4.8-10.8)
[2017-05-07 06:52] LABS: ALB/GLOB RATIO 0.7 (1.0-2.1); ALBUMIN 2.8 g/dL (3.5-5.0); CALCIUM 8.2 mg/dl (8.6-10.4)
[2017-05-07] MEDS: Dextrose 5%/0.9% NS 1,000 ML IV SCH ×3 (07:25→20:53)
[2017-05-07] MEDS: (Novolin R) Insulin Human Regular 100 units/ml vial SC SCH ×4 (08:07→21:23)
--- NOTE | 2017-05-07 09:05 | CP.PCM.CON ---
<Chaim Rueda - Last Filed: 05/07/17 10:15> History of Present Illness - History of Present Illness History of Present Illness: PG4 Initial GI Consult Giselle Colbert is a 76yo F with a Hx of invasive cholangiocarcinoma, Pancreatic cyst, cirrhosis, HTN, DM, CKD, CAD, RA, OA here for evaluation of abdominal pain. Patient history obtained from patient, family, and EMR. Pt states that the pain was sudden and started the day of admission. She states that she has had similar abdominal pain since discharge and on for a while but today the pain became severe and sharp. Associated with nausea and vomiting multiple times (clear, non bilious, non bloody). Denies fevers or chills. She was scheduled for pancreatic surgery by Dr. Hawley on May 18. She denies any urinary complaints. Denies any bowel habit changes. No sick contacts PMD: Dr. Joan Suh PMHx: Invasive cholangiocarcinoma, Pancreatic Cyst, Cirrhosis, HTN, DM, CKD, RA , OA, CAD PSHx: Cholecystectomy, [facility] Family hx: Denies Social Hx: Denies tobacco use, denies etoh use, denies illicit drugs. lives with family Endoscopy hx; ERCP w/ schincterotomy and baloon sweep w/ plastic stent placement 03/2017 ROS: 12 point ROS conducted, neg other than above Past Patient History - Infectious Disease Hx of Infectious Diseases: None - Past Medical History & Family History Past Medical History?: Yes - Past Social History Smoking Status: Never Smoked Alcohol: None Drugs: Denies Home Situation {Lives}: With Family - CARDIAC Hx Hypercholesterolemia: Yes Hx Hypertension: Yes Hx Pacemaker: No - PULMONARY Hx Respiratory Disorders: No - NEUROLOGICAL Hx Migraine: Yes - HEENT Hx HEENT Problems: No - RENAL Hx Chronic Kidney Disease: No - ENDOCRINE/METABOLIC Hx Diabetes Mellitus Type 2: Yes - HEMATOLOGICAL/ONCOLOGICAL Hx Blood Transfusions: No Hx Blood Transfusion Reaction: No Hx Cancer: Yes (Hx of colon CA (mass)) - INTEGUMENTARY Hx Dermatological Problems: No - MUSCULOSKELETAL/RHEUMATOLOGICAL Hx Arthritis: Yes Hx Osteoporosis: Yes - GASTROINTESTINAL Hx Pancreatitis: Yes - GENITOURINARY/GYNECOLOGICAL Hx Genitourinary Disorders: No - PSYCHIATRIC Hx Substance Use: No - SURGICAL HISTORY Hx Appendectomy: Yes Hx Cholecystectomy: Yes Hx Coronary Stent: Yes (X4) - ANESTHESIA Hx Anesthesia: Yes Hx Anesthesia Reactions: Yes Hx Malignant Hyperthermia: No Meds Allergies/Adverse Reactions: Allergies Allergy/AdvReac Type Severity Reaction Status Date / Time ciprofloxacin [From Cipro] Allergy ANAPHYLAXIS Verified 05/06/17 13:58 ciprofloxacin HCl Allergy ANAPHYLAXIS Verified 05/06/17 13:58 [From Cipro] seafood Allergy ANAPHYLAXIS Uncoded 05/06/17 13:58 - Medications Medications: Current Medications Clopidogrel Bisulfate (Plavix) 75 mg PO DAILY [facility] Dextrose (Dextrose 50% Inj) 0 ml IV STAT PRN; Protocol PRN Reason: Hypoglycemia Protocol Dextrose (Glutose 15) 0 gm PO ONCE PRN; Protocol PRN Reason: Hypoglycemia Protocol Enoxaparin Sodium (Lovenox) 30 mg SC DAILY [facility] Glucagon (Glucagen Diagnostic Kit) 0 mg IM STAT PRN; Protocol PRN Reason: Hypoglycemia Protocol Hydralazine HCl (Apresoline) 10 mg IVP Q6H PRN PRN Reason: Systolic Blood Pressure Last Admin: 05/07/17 05:36 Dose: 10 mg Hydromorphone HCl (Dilaudid) 2 mg IVP Q4H PRN PRN Reason: Pain, moderate (4-7) Last Admin: 05/07/17 04:58 Dose: 2 mg Piperacillin Sod/Tazobactam Sod (Zosyn 2.25 Gm Iv Premix) 2.25 gm in 50 mls @ 100 mls/hr IVPB Q6H [facility] PRN Reason: Protocol Last Admin: 05/07/17 05:01 Dose: 100 mls/hr Dextrose/Sodium Chloride (Dextrose 5%/0.9% Ns 1000 Ml) 1,000 mls @ 75 mls/hr IV .[id number] [facility] Last Admin: 05/07/17 08:49 Dose: 75 mls/hr Dextrose (Dextrose 5% In Water 1000 Ml) 1,000 mls @ 0 mls/hr IV .Q0M PRN; Protocol; Per Protocol PRN Reason: Hypoglycemia Protocol Insulin Human Regular (Novolin R) 0 unit SC ACHS [facility] PRN Reason: Protocol Last Admin: 05/07/17 08:07 Dose: Not Given Nebivolol (Bystolic) 2.5 mg PO DAILY [facility] Nifedipine (Procardia Xl) 120 mg PO DAILY [facility] Ondansetron HCl (Zofran Inj) 4 mg IVP Q6H PRN PRN Reason: Nausea/Vomiting Pantoprazole Sodium (Protonix Inj) 40 mg IVP DAILY [facility] Sitagliptin Phosphate (Januvia) 50 mg PO DAILY [facility] Sodium Bicarbonate (Sodium Bicarbonate Tab) 650 mg PO TID [facility] Topiramate (Topamax) 50 mg PO BID [facility] Last Admin: 05/06/17 17:57 Dose: 50 mg Physical Exam - Constitutional Appears: No Acute Distress, Chronically Ill - Head Exam Head Exam: ATRAUMATIC, NORMOCEPHALIC - Eye Exam Eye Exam: Scleral icterus - ENT Exam ENT Exam: Mucous Membranes Moist, Normal Exam - Neck Exam Neck exam: Positive for: Normal Inspection - Respiratory Exam Respiratory Exam: Clear to Auscultation Bilateral, NORMAL BREATHING PATTERN. absent: Chest Wall Tenderness, Decreased Breath Sounds, Rales - Cardiovascular Exam Cardiovascular Exam: REGULAR RHYTHM, +S1, +S2 - GI/Abdominal Exam GI & Abdominal Exam: Normal Bowel Sounds, Soft. absent: Distended, Firm, Guarding, Rebound, Rigid, Tenderness - Extremities Exam Extremities exam: Positive for: joint swelling, pedal edema - Neurological Exam Neurological exam: Oriented x3 Additional comments: lethargic - Psychiatric Exam Psychiatric exam: Normal Affect, Normal Mood - Skin Skin Exam: Dry, Intact, Normal Color, Warm Results - Vital Signs Recent Vital Signs: Last Vital Signs Temp 99.4 F 05/07/17 08:52 Pulse 89 05/07/17 07:15 Resp 18 05/07/17 07:15 BP 144/64 05/07/17 07:15 Pulse Ox 94 L 05/07/17 07:15 - Labs Result Diagrams: 05/07/17 06:17 05/07/17 06:17 Labs: Laboratory Results - last 24 hr 05/06/17 05/06/17 05/06/17 14:26 14:26 16:40 WBC 7.1 D RBC 2.85 L Hgb 8.8 L Hct 26.2 L MCV 92.1 MCH 31.0 MCHC 33.7 RDW 15.1 H Plt Count 131 MPV 9.3 Neut % (Auto) 80.3 H Lymph % (Auto) 14.2 L [place] % (Auto) 4.7 Eos % (Auto) 0.7 Baso % (Auto) 0.1 Neut # (Auto) 5.7 Lymph # (Auto) 1.0 [place] # (Auto) 0.3 Eos # (Auto) 0.0 Baso # (Auto) 0.0 Puncture Site pCO2 pO2 HCO3 ABG pH ABG Total CO2 ABG O2 Saturation ABG Base Excess Abel Test ABG Potassium A-a O2 Difference Respiratory Index Glucose Lactate FiO2 Sodium 139 Potassium 4.0 Chloride 109 H Carbon Dioxide 17 L Anion Gap 17 BUN 31 H Creatinine 2.5 H Est GFR ( Amer) 23 Est GFR (Non-Af Amer) 19 POC Glucose (mg/dL) Random Glucose 178 H Calcium 8.6 Phosphorus Magnesium Total Bilirubin 1.1 AST 230 H D ALT 78 H D Alkaline Phosphatase 438 H D Total Protein 7.5 Albumin 3.2 L Globulin 4.3 H Albumin/Globulin Ratio 0.8 L Lipase 332 H CA 19-9 Antigen Arterial Blood Potassium Urine Color Yellow Urine Clarity Hazy Urine pH 7.0 Ur Specific [place] 1.009 Urine Protein 3+ H Urine Glucose (UA) 2+ H Urine Ketones Negative Urine Blood 1+ H Urine Nitrate Negative Urine Bilirubin Negative Urine Urobilinogen Normal Ur Leukocyte Esterase 2+ H Urine WBC (Auto) 37 H Urine RBC (Auto) 19 H Urine WBC Clumps (Auto) Few H Ur Squamous Epith Cells 1 Urine Bacteria Mod H 05/06/17 05/06/17 05/06/17 16:53 17:18 17:53 WBC RBC Hgb Hct MCV MCH MCHC RDW Plt Count MPV Neut % (Auto) Lymph % (Auto) [place] % (Auto) Eos % (Auto) Baso % (Auto) Neut # (Auto) Lymph # (Auto) [place] # (Auto) Eos # (Auto) Baso # (Auto) Puncture Site Rr pCO2 35 pO2 67 L HCO3 17.0 L ABG pH 7.27 L ABG Total CO2 17.2 L ABG O2 Saturation 97.6 ABG Base Excess -9.9 L Abel Test Po ABG Potassium 3.7 A-a O2 Difference 39.0 Respiratory Index 0.6 Glucose 177 H Lactate 1.2 FiO2 21.0 Sodium 139.0 Potassium Chloride 113.0 H Carbon Dioxide Anion Gap BUN Creatinine Est GFR ( Amer) Est GFR (Non-Af Amer) POC Glucose (mg/dL) 185 H Random Glucose Calcium Phosphorus Magnesium Total Bilirubin AST ALT Alkaline Phosphatase Total Protein Albumin Globulin Albumin/Globulin Ratio Lipase CA 19-9 Antigen 109 H D Arterial Blood Potassium 3.7 Urine Color Urine Clarity Urine pH Ur Specific [place] Urine Protein Urine Glucose (UA) Urine Ketones Urine Blood Urine Nitrate Urine Bilirubin Urine Urobilinogen Ur Leukocyte Esterase Urine WBC (Auto) Urine RBC (Auto) Urine WBC Clumps (Auto) Ur Squamous Epith Cells Urine Bacteria 05/06/17 05/07/17 05/07/17 21:00 06:17 06:17 WBC 13.8 H D RBC 2.68 L Hgb 8.2 L Hct 24.6 L MCV 91.9 MCH 30.7 MCHC 33.4 RDW 14.8 H Plt Count 119 L MPV 9.5 Neut % (Auto) 91.9 H Lymph % (Auto) 3.4 L [place] % (Auto) 4.6 Eos % (Auto) 0.0 Baso % (Auto) 0.1 Neut # (Auto) 12.7 H Lymph # (Auto) 0.5 L [place] # (Auto) 0.6 Eos # (Auto) 0.0 Baso # (Auto) 0.0 Puncture Site pCO2 pO2 HCO3 ABG pH ABG Total CO2 ABG O2 Saturation ABG Base Excess Abel Test ABG Potassium A-a O2 Difference Respiratory Index Glucose Lactate FiO2 Sodium 141 Potassium 4.4 Chloride 111 H Carbon Dioxide 18 L Anion Gap 17 BUN 27 H Creatinine 2.4 H Est GFR ( Amer) 24 Est GFR (Non-Af Amer) 20 POC Glucose (mg/dL) 170 H Random Glucose 125 H Calcium 8.2 L Phosphorus 4.8 H Magnesium 1.8 Total Bilirubin 4.2 H AST 202 H ALT 124 H D Alkaline Phosphatase 405 H Total Protein 6.9 Albumin 2.8 L Globulin 4.1 H Albumin/Globulin Ratio 0.7 L Lipase 59 CA 19-9 Antigen Arterial Blood Potassium Urine Color Urine Clarity Urine pH Ur Specific [place] Urine Protein Urine Glucose (UA) Urine Ketones Urine Blood Urine Nitrate Urine Bilirubin Urine Urobilinogen Ur Leukocyte Esterase Urine WBC (Auto) Urine RBC (Auto) Urine WBC Clumps (Auto) Ur Squamous Epith Cells Urine Bacteria 05/07/17 06:39 WBC RBC Hgb Hct MCV MCH MCHC RDW Plt Count MPV Neut % (Auto) Lymph % (Auto) [place] % (Auto) Eos % (Auto) Baso % (Auto) Neut # (Auto) Lymph # (Auto) [place] # (Auto) Eos # (Auto) Baso # (Auto) Puncture Site pCO2 pO2 HCO3 ABG pH ABG Total CO2 ABG O2 Saturation ABG Base Excess Abel Test ABG Potassium A-a O2 Difference Respiratory Index Glucose Lactate FiO2 Sodium Potassium Chloride Carbon Dioxide Anion Gap BUN Creatinine Est GFR ( Amer) Est GFR (Non-Af Amer) POC Glucose (mg/dL) 130 H Random Glucose Calcium Phosphorus Magnesium Total Bilirubin AST ALT Alkaline Phosphatase Total Protein Albumin Globulin Albumin/Globulin Ratio Lipase CA 19-9 Antigen Arterial Blood Potassium Urine Color Urine Clarity Urine pH Ur Specific [place] Urine Protein Urine Glucose (UA) Urine Ketones Urine Blood Urine Nitrate Urine Bilirubin Urine Urobilinogen Ur Leukocyte Esterase Urine WBC (Auto) Urine RBC (Auto) Urine WBC Clumps (Auto) Ur Squamous Epith Cells Urine Bacteria Assessment & Plan - Assessment and Plan (Free Text) Assessment: Patient is a 76yo female with PMHx significant for CAD (on plavix), HTN, CKD, osteoporosis who presented with abdominal pain and jaundice. -Elevated LFTs likely 2/2 stent obstruction vs cholangitis -Cholangitis -hx of Cholangiocarcinoma s/p ERCP with sphincterotomy, dilation and biliary stent placement on 04/04/17 -CKD with JADE Plan: keep NPO ERCP today with plans to stent exchange with another plastic stent continue renally dosed zosyn spoke to surgery, plan is still to have surgery in May blood cultures pending if pt becomes hemodynamically unstable, recommend ICU eval D/W Dr. Naidu <Singh Naidu - Last Filed: 05/07/17 12:04> Meds - Medications Medications: Current Medications Clopidogrel Bisulfate (Plavix) 75 mg PO DAILY [facility] Dextrose (Dextrose 50% Inj) 0 ml IV STAT PRN; Protocol PRN Reason: Hypoglycemia Protocol Dextrose (Glutose 15) 0 gm PO ONCE PRN; Protocol PRN Reason: Hypoglycemia Protocol Enoxaparin Sodium (Lovenox) 30 mg SC DAILY [facility] Glucagon (Glucagen Diagnostic Kit) 0 mg IM STAT PRN; Protocol PRN Reason: Hypoglycemia Protocol Hydralazine HCl (Apresoline) 10 mg IVP Q6H PRN PRN Reason: Systolic Blood Pressure Last Admin: 05/07/17 05:36 Dose: 10 mg Hydromorphone HCl (Dilaudid) 2 mg IVP Q4H PRN PRN Reason: Pain, moderate (4-7) Last Admin: 05/07/17 04:58 Dose: 2 mg Piperacillin Sod/Tazobactam Sod (Zosyn 2.25 Gm Iv Premix) 2.25 gm in 50 mls @ 100 mls/hr IVPB Q6H [facility] PRN Reason: Protocol Last Admin: 05/07/17 05:01 Dose: 100 mls/hr Dextrose/Sodium Chloride (Dextrose 5%/0.9% Ns 1000 Ml) 1,000 mls @ 75 mls/hr IV .[id number] [facility] Last Admin: 05/07/17 08:49 Dose: 75 mls/hr Dextrose (Dextrose 5% In Water 1000 Ml) 1,000 mls @ 0 mls/hr IV .Q0M PRN; Protocol; Per Protocol PRN Reason: Hypoglycemia Protocol Insulin Human Regular (Novolin R) 0 unit SC ACHS [facility] PRN Reason: Protocol Last Admin: 05/07/17 08:07 Dose: Not Given Nebivolol (Bystolic) 2.5 mg PO DAILY [facility] Nifedipine (Procardia Xl) 120 mg PO DAILY [facility] Ondansetron HCl (Zofran Inj) 4 mg IVP Q6H PRN PRN Reason: Nausea/Vomiting Pantoprazole Sodium (Protonix Inj) 40 mg IVP DAILY [facility] Sitagliptin Phosphate (Januvia) 50 mg PO DAILY [facility] Sodium Bicarbonate (Sodium Bicarbonate Tab) 650 mg PO TID [facility] Topiramate (Topamax) 50 mg PO BID [facility] Last Admin: 05/06/17 17:57 Dose: 50 mg Results - Vital Signs Recent Vital Signs: Last Vital Signs Temp 100.4 F H 05/07/17 11:35 Pulse 78 05/07/17 11:35 Resp 15 05/07/17 11:35 BP 146/59 L 05/07/17 11:35 Pulse Ox 97 05/07/17 11:35 - Labs Result Diagrams: 05/07/17 06:17 05/07/17 06:17 Labs: Laboratory Results - last 24 hr 05/06/17 05/06/17 05/06/17 14:26 14:26 16:40 WBC 7.1 D RBC 2.85 L Hgb 8.8 L Hct 26.2 L MCV 92.1 MCH 31.0 MCHC 33.7 RDW 15.1 H Plt Count 131 MPV 9.3 Neut % (Auto) 80.3 H Lymph % (Auto) 14.2 L [place] % (Auto) 4.7 Eos % (Auto) 0.7 Baso % (Auto) 0.1 Neut # (Auto) 5.7 Lymph # (Auto) 1.0 [place] # (Auto) 0.3 Eos # (Auto) 0.0 Baso # (Auto) 0.0 Neutrophils % (Manual) Band Neutrophils % Lymphocytes % (Manual) Monocytes % (Manual) Platelet Estimate RBC Morphology Puncture Site pCO2 pO2 HCO3 ABG pH ABG Total CO2 ABG O2 Saturation ABG Base Excess Abel Test ABG Potassium A-a O2 Difference Respiratory Index Glucose Lactate FiO2 Sodium 139 Potassium 4.0 Chloride 109 H Carbon Dioxide 17 L Anion Gap 17 BUN 31 H Creatinine 2.5 H Est GFR ( Amer) 23 Est GFR (Non-Af Amer) 19 POC Glucose (mg/dL) Random Glucose 178 H Calcium 8.6 Phosphorus Magnesium Total Bilirubin 1.1 AST 230 H D ALT 78 H D Alkaline Phosphatase 438 H D Total Protein 7.5 Albumin 3.2 L Globulin 4.3 H Albumin/Globulin Ratio 0.8 L Lipase 332 H CA 19-9 Antigen Arterial Blood Potassium Urine Color Yellow Urine Clarity Hazy Urine pH 7.0 Ur Specific [place] 1.009 Urine Protein 3+ H Urine Glucose (UA) 2+ H Urine Ketones Negative Urine Blood 1+ H Urine Nitrate Negative Urine Bilirubin Negative Urine Urobilinogen Normal Ur Leukocyte Esterase 2+ H Urine WBC (Auto) 37 H Urine RBC (Auto) 19 H Urine WBC Clumps (Auto) Few H Ur Squamous Epith Cells 1 Urine Bacteria Mod H 05/06/17 05/06/17 05/06/17 16:53 17:18 17:53 WBC RBC Hgb Hct MCV MCH MCHC RDW Plt Count MPV Neut % (Auto) Lymph % (Auto) [place] % (Auto) Eos % (Auto) Baso % (Auto) Neut # (Auto) Lymph # (Auto) [place] # (Auto) Eos # (Auto) Baso # (Auto) Neutrophils % (Manual) Band Neutrophils % Lymphocytes % (Manual) Monocytes % (Manual) Platelet Estimate RBC Morphology Puncture Site Rr pCO2 35 pO2 67 L HCO3 17.0 L ABG pH 7.27 L ABG Total CO2 17.2 L ABG O2 Saturation 97.6 ABG Base Excess -9.9 L Abel Test Po ABG Potassium 3.7 A-a O2 Difference 39.0 Respiratory Index 0.6 Glucose 177 H Lactate 1.2 FiO2 21.0 Sodium 139.0 Potassium Chloride 113.0 H Carbon Dioxide Anion Gap BUN Creatinine Est GFR ( Amer) Est GFR (Non-Af Amer) POC Glucose (mg/dL) 185 H Random Glucose Calcium Phosphorus Magnesium Total Bilirubin AST ALT Alkaline Phosphatase Total Protein Albumin Globulin Albumin/Globulin Ratio Lipase CA 19-9 Antigen 109 H D Arterial Blood Potassium 3.7 Urine Color Urine Clarity Urine pH Ur Specific [place] Urine Protein Urine Glucose (UA) Urine Ketones Urine Blood Urine Nitrate Urine Bilirubin Urine Urobilinogen Ur Leukocyte Esterase Urine WBC (Auto) Urine RBC (Auto) Urine WBC Clumps (Auto) Ur Squamous Epith Cells Urine Bacteria 05/06/17 05/07/17 05/07/17 21:00 06:17 06:17 WBC 13.8 H D RBC 2.68 L Hgb 8.2 L Hct 24.6 L MCV 91.9 MCH 30.7 MCHC 33.4 RDW 14.8 H Plt Count 119 L MPV 9.5 Neut % (Auto) 91.9 H Lymph % (Auto) 3.4 L [place] % (Auto) 4.6 Eos % (Auto) 0.0 Baso % (Auto) 0.1 Neut # (Auto) 12.7 H Lymph # (Auto) 0.5 L [place] # (Auto) 0.6 Eos # (Auto) 0.0 Baso # (Auto) 0.0 Neutrophils % (Manual) 68 Band Neutrophils % 26 H* Lymphocytes % (Manual) 2 L Monocytes % (Manual) 4 Platelet Estimate Slightly decreased L RBC Morphology Normal Puncture Site pCO2 pO2 HCO3 ABG pH ABG Total CO2 ABG O2 Saturation ABG Base Excess Abel Test ABG Potassium A-a O2 Difference Respiratory Index Glucose Lactate FiO2 Sodium 141 Potassium 4.4 Chloride 111 H Carbon Dioxide 18 L Anion Gap 17 BUN 27 H Creatinine 2.4 H Est GFR ( Amer) 24 Est GFR (Non-Af Amer) 20 POC Glucose (mg/dL) 170 H Random Glucose 125 H Calcium 8.2 L Phosphorus 4.8 H Magnesium 1.8 Total Bilirubin 4.2 H AST 202 H ALT 124 H D Alkaline Phosphatase 405 H Total Protein 6.9 Albumin 2.8 L Globulin 4.1 H Albumin/Globulin Ratio 0.7 L Lipase 59 CA 19-9 Antigen Arterial Blood Potassium Urine Color Urine Clarity Urine pH Ur Specific [place] Urine Protein Urine Glucose (UA) Urine Ketones Urine Blood Urine Nitrate Urine Bilirubin Urine Urobilinogen Ur Leukocyte Esterase Urine WBC (Auto) Urine RBC (Auto) Urine WBC Clumps (Auto) Ur Squamous Epith Cells Urine Bacteria 05/07/17 06:39 WBC RBC Hgb Hct MCV MCH MCHC RDW Plt Count MPV Neut % (Auto) Lymph % (Auto) [place] % (Auto) Eos % (Auto) Baso % (Auto) Neut # (Auto) Lymph # (Auto) [place] # (Auto) Eos # (Auto) Baso # (Auto) Neutrophils % (Manual) Band Neutrophils % Lymphocytes % (Manual) Monocytes % (Manual) Platelet Estimate RBC Morphology Puncture Site pCO2 pO2 HCO3 ABG pH ABG Total CO2 ABG O2 Saturation ABG Base Excess Abel Test ABG Potassium A-a O2 Difference Respiratory Index Glucose Lactate FiO2 Sodium Potassium Chloride Carbon Dioxide Anion Gap BUN Creatinine Est GFR ( Amer) Est GFR (Non-Af Amer) POC Glucose (mg/dL) 130 H Random Glucose Calcium Phosphorus Magnesium Total Bilirubin AST ALT Alkaline Phosphatase Total Protein Albumin Globulin Albumin/Globulin Ratio Lipase CA 19-9 Antigen Arterial Blood Potassium Urine Color Urine Clarity Urine pH Ur Specific [place] Urine Protein Urine Glucose (UA) Urine Ketones Urine Blood Urine Nitrate Urine Bilirubin Urine Urobilinogen Ur Leukocyte Esterase Urine WBC (Auto) Urine RBC (Auto) Urine WBC Clumps (Auto) Ur Squamous Epith Cells Urine Bacteria Attending/Attestation - Attestation I have personally seen and examined this patient.: Yes I have fully participated in the care of the patient.: Yes I have reviewed all pertinent clinical information: Yes Notes (Text): 05/07/17 09:03 76 year old female with h/o CAD s/p stents on plavix, CKD, HTN recently diagnosed with cholangiocarcinoma s/p ercp with stent admitted with leukocytosis and recurrent jaundice suspicious for cholangitis. Recommend IV antibiotics. Urgent ercp today for stent change. Per surgery, whipple planned for two weeks. 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
[2017-05-07 09:32] LABS: BANDS 26 % (0-2); LYMPHOCYTE 2 % (20-40); MONOCYTE 4 % (0-10); NEUTROPHIL 68 % (50-75); TOTAL CELLS COUNTED 100
[2017-05-07 09:33] LABS: PLATELET ESTIMATE SLIGHTLY DECREASED (NORMAL)
[2017-05-07] MEDS ORDERED: Enoxaparin 30 mg Syringe SC SCH (10:00)
[2017-05-07] MEDS ORDERED: Indomethacin 50 MG Suppository PR ONE (10:08)
[2017-05-07] MEDS ORDERED: Propofol 10 mg/ml Inj (20 ML) ONE (10:23)
[2017-05-07] MEDS: NIFEdipine 60 mg ER Tab PO SCH (12:34)
--- NOTE | 2017-05-07 12:45 | CP.PCM.PN ---
<Ana Rodriguez - Last Filed: 05/07/17 14:58> Subjective - Date & Time of Evaluation Date of Evaluation: 05/07/17 Time of Evaluation: 12:36 - Subjective Subjective: Progress Note Patient drowsy on interview today. Patient's family at bedside. PAtient was given dilaudid. Patient had bloody urine overnight. Patient is NPO for ERCP this morning. Will Follow Patient tolerated ERCP and is having pain in right upper quadrant expected after procedure. Patient also has reproducible mid sternal discomfort on palpation and with inspiration Objective - Vital Signs/Intake and Output Vital Signs (last 24 hours): Temp Pulse Resp BP Pulse Ox 100.4 F H 78 15 146/59 L 97 05/07/17 11:35 05/07/17 11:35 05/07/17 11:35 05/07/17 11:35 05/07/17 11:35 Intake and Output: 05/07/17 05/07/17 06:59 18:59 Intake Total 50 350 Balance 50 350 - Medications Medications: Current Medications Clopidogrel Bisulfate (Plavix) 75 mg PO DAILY [facility] Dextrose (Dextrose 50% Inj) 0 ml IV STAT PRN; Protocol PRN Reason: Hypoglycemia Protocol Dextrose (Glutose 15) 0 gm PO ONCE PRN; Protocol PRN Reason: Hypoglycemia Protocol Enoxaparin Sodium (Lovenox) 30 mg SC DAILY [facility] Glucagon (Glucagen Diagnostic Kit) 0 mg IM STAT PRN; Protocol PRN Reason: Hypoglycemia Protocol Hydralazine HCl (Apresoline) 10 mg IVP Q6H PRN PRN Reason: Systolic Blood Pressure Last Admin: 05/07/17 05:36 Dose: 10 mg Hydromorphone HCl (Dilaudid) 2 mg IVP Q4H PRN PRN Reason: Pain, moderate (4-7) Last Admin: 05/07/17 04:58 Dose: 2 mg Piperacillin Sod/Tazobactam Sod (Zosyn 2.25 Gm Iv Premix) 2.25 gm in 50 mls @ 100 mls/hr IVPB Q6H [facility] PRN Reason: Protocol Last Admin: 05/07/17 05:01 Dose: 100 mls/hr Dextrose/Sodium Chloride (Dextrose 5%/0.9% Ns 1000 Ml) 1,000 mls @ 75 mls/hr IV .[id number] [facility] Last Admin: 05/07/17 08:49 Dose: 75 mls/hr Dextrose (Dextrose 5% In Water 1000 Ml) 1,000 mls @ 0 mls/hr IV .Q0M PRN; Protocol; Per Protocol PRN Reason: Hypoglycemia Protocol Insulin Human Regular (Novolin R) 0 unit SC ACHS [facility] PRN Reason: Protocol Last Admin: 05/07/17 08:07 Dose: Not Given Nebivolol (Bystolic) 2.5 mg PO DAILY [facility] Nifedipine (Procardia Xl) 120 mg PO DAILY [facility] Ondansetron HCl (Zofran Inj) 4 mg IVP Q6H PRN PRN Reason: Nausea/Vomiting Pantoprazole Sodium (Protonix Inj) 40 mg IVP DAILY [facility] Sitagliptin Phosphate (Januvia) 50 mg PO DAILY [facility] Sodium Bicarbonate (Sodium Bicarbonate Tab) 650 mg PO TID [facility] Topiramate (Topamax) 50 mg PO BID [facility] Last Admin: 05/06/17 17:57 Dose: 50 mg - Labs Labs: 05/07/17 06:17 05/07/17 06:17 - Constitutional Appears: Non-toxic, No Acute Distress - Head Exam Head Exam: NORMAL INSPECTION, NORMOCEPHALIC - Eye Exam Eye Exam: EOMI, Normal appearance Pupil Exam: NORMAL ACCOMODATION, PERRL - ENT Exam ENT Exam: Mucous Membranes Moist, Normal Exam - Neck Exam Neck Exam: Full ROM, Normal Inspection - Respiratory Exam Respiratory Exam: Clear to Ausculation Bilateral, NORMAL BREATHING PATTERN - Cardiovascular Exam Cardiovascular Exam: REGULAR RHYTHM, +S1, +S2 - GI/Abdominal Exam GI & Abdominal Exam: Soft, Tenderness (RUQ tenderness to palpation). absent: Guarding, Rigid, Hypoactive Bowel Sounds, Organomegaly, Pulsatile Mass, Rebound - Extremities Exam Extremities Exam: Full ROM, Normal Inspection. absent: Pedal Edema - Neurological Exam Neurological Exam: Awake, CN II-XII Intact. 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 Carter - help appreciated Surgery consulted - Dr. Hawley - hel appreciated - family states pt with OPDX surgery with Dr. Hawley GI consulted - Dr. Bills s/p ERCP with sphincterotomy, dilation and biliary stent placement on 04/04/1705/07 biliary stent removal and of insertion of new plastic stent Ct A/P (05/06/17): Metallic stent in CBD, with persistent residual moderate dilatation of CBD. Enlarged panc head w diffuse atrphty of body/tail concerning for carcinoma with biliary obstruction. Enlarged nodular liver. Solitary lesion in spleen no completely characterized on exam. CT Pancreas protocol scan (04/05/17) - Atrophy of the pancreatic body and tail with prominence of the pancreatic head, lesion surrounding/adjacent to the distal common duct cannot be excluded, endoscopic ultrasound may be helpful for further evaluation; enlarged cirrhotic liver with fatty infiltration; cholecystectomy; pneumobilia with biliary stent; inflammation and edema in the mary hepatis. Further recs per attending evaluation as per surgical team CT head/chest/neck (04/05/17) unremarkable for metastatic disease though studies are limited in the absence of IV contrast 2/2 CKD with JADE MRCP (03/31/17): showed moderately to markedly dilated proximal common bile duct with large filling defect noted in the distal common bile duct, which could represent multiple choledocholithiasis (differential consideration includes less likely distal CBD neoplasm or stricture). Also noted [id number] intrahepatic biliary ductal dilatation, cirrhosis with findings suggestive of portal hypertension including splenomegaly and trace ascites, and 6.3 millimeter cyst at the pancreatic head. - Common bile duct, stricture biopsy: Invasive adenocarcinoma, moderately differentiated AST/ALT 230/78, Alk Phos 438 on admission - elevated over last admission, but normalized by discharge CA 19-9 level: 109 Hypertensive urgency Markedly elevated at admission; large pain component * Bystolic and nifedipine XL continued (home meds) * Hydralazine 10mg IV Q6H PRN for SBP > 160 Lipid panel noted from prior admission: Tri, Chol: 186, LDL: 97, HDL: 37 UTI, hematuria Pt denies dysuria, polyuria UA (05/06/17): mod bacteria, 2+ LE, 37 WBC Urine Cx Positive for Gram Neg Rods Zosyn 2.25 gm IV Q6H for empiric coverage Diastolic CHF (04/17/17): EF 55-60%, mod diastolic dysfxn. Moderate Pulm Htn. Trace pericardial effusion. Procardia XL 120mg PO daily, Bystolic 2.5 mg PO daily. CAD Plavix 75mg PO Daily CKD, Stage 4 Nephrology consult: Dr. Juárez -Not on dialysis at this time -UA shows protein -Baseline creatine 1-1.5, though on recent admission 2.2 -D5/NS @ 75cc/hr + NaBicarb 650mg PO TID -F/u Urine Sodium, Electrolytes, studies Metabolic Acidosis ABG: ph 7.27, CO2 17 -D5/NS @ 75cc/hr + NaBicarb 650mg PO TID Proteinuria 3+ protein in Urine Monitor Anemia of chronic disease Baseline hemoglobin 10 - Admission 8.8 Last admission iron studies: * Retic count 1.5, Iron 23, TIBC 259, % Saturation 9, Ferritin 103 Monitor AM labs Diabetes Mellitus * Accuchecks * Hypoglycemia protocol * A1C- 5.1 * Hold home metformin due to elevated Cr * Januvia 50mg PO Daily * ISS- low Prophylactic measure * GI PPX: Protonix 40mg IV daily * DVT PPX: SCDs, Lovenox 30mg SC Daily Discussed with Dr. Hailey Rodriguez, DO PGY1 <Kvng Hart - Last Filed: 05/08/17 17:42> Objective - Vital Signs/Intake and Output Vital Signs (last 24 hours): Temp Pulse Resp BP Pulse Ox 98.5 F 72 20 127/62 988 H 05/08/17 16:57 05/08/17 16:57 05/08/17 16:57 05/08/17 16:57 05/08/17 16:57 Intake and Output: 05/08/17 05/08/17 06:59 18:59 Intake Total 860 1015 Balance 860 1015 - Medications Medications: Current Medications Clopidogrel Bisulfate (Plavix) 75 mg PO DAILY [facility] Dextrose (Dextrose 50% Inj) 0 ml IV STAT PRN; Protocol PRN Reason: Hypoglycemia Protocol Dextrose (Glutose 15) 0 gm PO ONCE PRN; Protocol PRN Reason: Hypoglycemia Protocol Glucagon (Glucagen Diagnostic Kit) 0 mg IM STAT PRN; Protocol PRN Reason: Hypoglycemia Protocol Hydralazine HCl (Apresoline) 10 mg IVP Q6H PRN PRN Reason: Systolic Blood Pressure Last Admin: 05/07/17 05:36 Dose: 10 mg Dextrose (Dextrose 5% In Water 1000 Ml) 1,000 mls @ 0 mls/hr IV .Q0M PRN; Protocol; Per Protocol PRN Reason: Hypoglycemia Protocol Meropenem (Merrem Iv 1 Gm Premix) 50 mls @ 50 mls/hr IVPB Q12H [facility] PRN Reason: Protocol Last Admin: 05/08/17 17:32 Dose: 50 mls/hr Sodium Bicarbonate 150 meq/ (Dextrose) 1,000 mls @ 60 mls/hr IV .[id number] [facility] Last Admin: 05/08/17 12:44 Dose: 60 mls/hr Aztreonam 1 gm/ Sodium (Chloride) 100 mls @ 100 mls/hr IVPB Q12H [facility] PRN Reason: Protocol Insulin Human Regular (Novolin R) 0 unit SC ACHS [facility] PRN Reason: Protocol Last Admin: 05/08/17 16:58 Dose: Not Given Morphine Sulfate (Morphine) 2 mg IVP Q4 PRN PRN Reason: Pain, moderate (4-7) Nebivolol (Bystolic) 2.5 mg PO DAILY [facility] Last Admin: 05/08/17 09:48 Dose: 2.5 mg Nifedipine (Procardia Xl) 120 mg PO DAILY [facility] Last Admin: 05/08/17 10:06 Dose: 120 mg Ondansetron HCl (Zofran Inj) 4 mg IVP Q6H PRN PRN Reason: Nausea/Vomiting Pantoprazole Sodium (Protonix Inj) 40 mg IVP DAILY [facility] Last Admin: 05/08/17 09:48 Dose: 40 mg Topiramate (Topamax) 50 mg PO BID [facility] Last Admin: 05/08/17 17:32 Dose: 50 mg - Labs Labs: 05/08/17 07:08 05/08/17 07:08 Attending/Attestation - Attestation I have personally seen and examined this patient.: Yes I have fully participated in the care of the patient.: Yes I have reviewed all pertinent clinical information, including history, physical exam and plan: Yes Notes (Text): seen and examined complaining of abdominal pain 1.Leukocytosis with high bands 2.Cholangiocarcinoma ,s/p stent change for obstructive jaundice and transaminitis 3.Chronic renal failure stage 4 4.diabetes mellitus 5.hypertension 6.Diastolic heart failure plan d/w resident .Spoke to Dr land. Started on Meropenem and azactam for possible ascending cholangitis I agree with the resident's documentation of the assessment and the plan Spoke to her family at bedside
--- NOTE | 2017-05-07 13:33 | RAD ---
PROCEDURE: Intraoperative Fluoroscopy. HISTORY: CHOLECYSITIS FINDINGS: Fluoroscopic assistance was provided for ERCP. Total fluoroscopic time (continuous mode) utilized during the procedure: . 39.6 seconds. Please refer to the operative report from [facility]. Total exam DLP: (mGy) 0.104 mGy per meter squared.
--- NOTE | 2017-05-07 13:35 | CP.PCM.CON ---
History of Present Illness - History of Present Illness History of Present Illness: 76yo F with PMHx of invasive cholangiocarcinoma, Pancreatic cyst, cirrhosis, HTN , DM, CKD, CAD, RA, OA here for evaluation of abdominal pain. Patient history obtained from patient, and family at bedside. Patient was walking to [employer] when the pain started. She states that she has had similar pain off and on for a while but today the pain became severe and sharp. Associated with nausea and vomiting multiple times (clear, non bilious, non bloody). Denies fevers or chills. States that she was asked by Dr. Hawley to obtain cardiac clearance which she did obtain by Dr. Rueda. She states that she was scheduled for pancreatic surgery by Dr. Hawley on May 18. She denies any urinary complaints. Denies any bowel habit changes. Denies any F/C. No CP/SOB. No sick contacts PMD: Dr. Joan Suh PMHx: Invasive cholangiocarcinoma, Pancreatic Cyst, Cirrhosis, HTN, DM, CKD, RA , OA, CAD, CKD 4, proteinuria PSHx: Cholecystectomy, AP, recent biliary stent Family hx: Denies, no CKD Social Hx: Denies tobacco use, denies etoh use, denies illicit drugs. lives with family Allergy: Ciprofloxacin, Fish Review of Systems - Constitutional Constitutional: Fatigue, Malaise, Weakness - EENT Eyes: absent: As Per HPI, Blind Spots, Blurred Vision, Change in Vision, Decreased Night Vision, Diplopia, Discharge, Dry Eye, Exophthalmos, Floaters, Irritation, Itchy Eyes, Loss of Peripheral Vision, Pain, Photophobia, Requires Corrective Lenses, Sees Flashes, Spots in Vision, Tunnel Vision, Other Visual Disturbances, Loss of Vision, Other Ears: absent: As Per HPI, Decreased Hearing, Ear Discharge, Ear Pain, Tinnitus, Abnormal Hearing, Disequilibrium, Dizziness, Other Nose/Mouth/Throat: absent: As Per HPI, Epistaxis, Nasal Congestion, Nasal Discharge, Nasal Obstruction, Nasal Trauma, Nose Pain, Post Nasal Drip, Sinus Pain, Sinus Pressure, Bleeding Gums, Change in Voice, Dental Pain, Dry Mouth, Dysphagia, Halitosis, Hoarsness, Lip Swelling, Mouth Lesions, Mouth Pain, Odynophagia, Sore Throat, Throat Swelling, Tongue Swelling, Facial Pain, Neck Pain, Neck Mass, Other - Cardiovascular Cardiovascular: absent: As Per HPI, Acrocyanosis, Chest Pain, Chest Pain at Rest , Chest Pain with Activity, Claudication, Diaphoresis, Dyspnea, Dyspnea on Exertion, Edema, Irregular Heart Rhythm, Pain Radiating to Arm/Neck/Jaw, Leg Edema, Leg Ulcers, Lightheadedness, Orthopnea, Palpitations, Paroxysmal Nocturnal Dyspnea, Pedal Edema, Radiating Pain, Rapid Heart Rate, Slow Heart Rate, Syncope, Other - Respiratory Respiratory: absent: As Per HPI, Cough, Dyspnea, Hemoptysis, Dyspnea on Exertion , Wheezing, Snoring, Stridor, Pain on Inspiration, Chest Congestion, Excessive Mucous Production, Change in Mucous Color, Pain with Coughing, Other - Gastrointestinal Gastrointestinal: As Per HPI - Genitourinary Genitourinary: absent: As Per HPI, Change in Urinary Stream, Difficulty Urinating, Dysuria, Flank Pain, Hematuria, Pyuria, Nocturia, Urinary Incontinence, Urinary Frequency, Urinary Hesitance, Urinary Urgency, Voiding Freq/Small Amts, Freq UTI, Hx Renal/Bladder Calculi, Hx /Renal Surgery, Bladder Distension, Other - Musculoskeletal Musculoskeletal: Muscle Cramps, Muscle Weakness, Myalgias - Integumentary Integumentary: absent: As Per HPI, Acne, Alopecia, Bleeding Lesions, Change in Hair, Change in Nails, Change in Pigmentation, Changing Lesions, Dry Skin, Erythema, Furuncle, Hirsutism, Lesions, New Lesions, Non-Healing Lesions, Photosensitivity, Pruritus, Rash, Skin Pain, Skin Ulcer, Sores, Striae, Swelling , Unusual Bruising, Wounds, Jaundice, Other - Neurological Neurological: Weakness Past Patient History - Infectious Disease Hx of Infectious Diseases: None - Past Medical History & Family History Past Medical History?: Yes - Past Social History Smoking Status: Never Smoked Alcohol: None Drugs: Denies Home Situation {Lives}: With Family - CARDIAC Hx Hypercholesterolemia: Yes Hx Hypertension: Yes Hx Pacemaker: No - PULMONARY Hx Respiratory Disorders: No - NEUROLOGICAL Hx Migraine: Yes - HEENT Hx HEENT Problems: No - RENAL Hx Chronic Kidney Disease: No - ENDOCRINE/METABOLIC Hx Diabetes Mellitus Type 2: Yes - HEMATOLOGICAL/ONCOLOGICAL Hx Blood Transfusions: No Hx Blood Transfusion Reaction: No Hx Cancer: Yes (Hx of colon CA (mass)) - INTEGUMENTARY Hx Dermatological Problems: No - MUSCULOSKELETAL/RHEUMATOLOGICAL Hx Arthritis: Yes Hx Osteoporosis: Yes - GASTROINTESTINAL Hx Pancreatitis: Yes - GENITOURINARY/GYNECOLOGICAL Hx Genitourinary Disorders: No - PSYCHIATRIC Hx Substance Use: No - SURGICAL HISTORY Hx Appendectomy: Yes Hx Cholecystectomy: Yes Hx Coronary Stent: Yes (X4) - ANESTHESIA Hx Anesthesia: Yes Hx Anesthesia Reactions: Yes Hx Malignant Hyperthermia: No Meds Allergies/Adverse Reactions: Allergies Allergy/AdvReac Type Severity Reaction Status Date / Time ciprofloxacin [From Cipro] Allergy ANAPHYLAXIS Verified 05/06/17 13:58 ciprofloxacin HCl Allergy ANAPHYLAXIS Verified 05/06/17 13:58 [From Cipro] seafood Allergy ANAPHYLAXIS Uncoded 05/06/17 13:58 - Medications Medications: Current Medications Clopidogrel Bisulfate (Plavix) 75 mg PO DAILY [facility] Dextrose (Dextrose 50% Inj) 0 ml IV STAT PRN; Protocol PRN Reason: Hypoglycemia Protocol Dextrose (Glutose 15) 0 gm PO ONCE PRN; Protocol PRN Reason: Hypoglycemia Protocol Enoxaparin Sodium (Lovenox) 30 mg SC DAILY [facility] Last Admin: 05/07/17 09:20 Dose: Not Given Glucagon (Glucagen Diagnostic Kit) 0 mg IM STAT PRN; Protocol PRN Reason: Hypoglycemia Protocol Hydralazine HCl (Apresoline) 10 mg IVP Q6H PRN PRN Reason: Systolic Blood Pressure Last Admin: 05/07/17 05:36 Dose: 10 mg Hydromorphone HCl (Dilaudid) 2 mg IVP Q4H PRN PRN Reason: Pain, moderate (4-7) Last Admin: 05/07/17 04:58 Dose: 2 mg Piperacillin Sod/Tazobactam Sod (Zosyn 2.25 Gm Iv Premix) 2.25 gm in 50 mls @ 100 mls/hr IVPB Q6H [facility] PRN Reason: Protocol Last Admin: 05/07/17 12:48 Dose: Not Given Dextrose/Sodium Chloride (Dextrose 5%/0.9% Ns 1000 Ml) 1,000 mls @ 75 mls/hr IV .[id number] [facility] Last Admin: 05/07/17 08:49 Dose: 75 mls/hr Dextrose (Dextrose 5% In Water 1000 Ml) 1,000 mls @ 0 mls/hr IV .Q0M PRN; Protocol; Per Protocol PRN Reason: Hypoglycemia Protocol Insulin Human Regular (Novolin R) 0 unit SC ACHS [facility] PRN Reason: Protocol Last Admin: 05/07/17 12:48 Dose: Not Given Nebivolol (Bystolic) 2.5 mg PO DAILY [facility] Last Admin: 05/07/17 12:34 Dose: 2.5 mg Nifedipine (Procardia Xl) 120 mg PO DAILY [facility] Last Admin: 05/07/17 12:34 Dose: 120 mg Ondansetron HCl (Zofran Inj) 4 mg IVP Q6H PRN PRN Reason: Nausea/Vomiting Pantoprazole Sodium (Protonix Inj) 40 mg IVP DAILY [facility] Sitagliptin Phosphate (Januvia) 50 mg PO DAILY [facility] Last Admin: 05/07/17 12:37 Dose: 50 mg Sodium Bicarbonate (Sodium Bicarbonate Tab) 650 mg PO TID [facility] Last Admin: 05/07/17 13:24 Dose: Not Given Topiramate (Topamax) 50 mg PO BID [facility] Last Admin: 05/07/17 12:38 Dose: 50 mg Physical Exam - Constitutional Appears: No Acute Distress, Older Than Stated Age, Chronically Ill - Head Exam Head Exam: ATRAUMATIC, NORMAL INSPECTION - Eye Exam Eye Exam: EOMI, Scleral icterus - Neck Exam Neck exam: Positive for: Normal Inspection. Negative for: Tenderness - Respiratory Exam Respiratory Exam: Rhonchi, NORMAL BREATHING PATTERN - Cardiovascular Exam Cardiovascular Exam: REGULAR RHYTHM, +S1 - GI/Abdominal Exam GI & Abdominal Exam: Distended, Soft, Tenderness - Extremities Exam Extremities exam: Positive for: normal inspection. Negative for: pedal edema - Neurological Exam Neurological exam: Alert, CN II-XII Intact - Skin Skin Exam: Dry, Warm Results - Vital Signs Recent Vital Signs: Last Vital Signs Temp 100.4 F H 05/07/17 11:35 Pulse 78 05/07/17 11:35 Resp 15 05/07/17 11:35 BP 146/59 L 05/07/17 11:35 Pulse Ox 97 05/07/17 11:35 - Labs Result Diagrams: 05/07/17 06:17 05/07/17 06:17 Labs: Laboratory Results - last 24 hr 05/06/17 05/06/17 05/06/17 14:26 14:26 16:40 WBC 7.1 D RBC 2.85 L Hgb 8.8 L Hct 26.2 L MCV 92.1 MCH 31.0 MCHC 33.7 RDW 15.1 H Plt Count 131 MPV 9.3 Neut % (Auto) 80.3 H Lymph % (Auto) 14.2 L [place] % (Auto) 4.7 Eos % (Auto) 0.7 Baso % (Auto) 0.1 Neut # (Auto) 5.7 Lymph # (Auto) 1.0 [place] # (Auto) 0.3 Eos # (Auto) 0.0 Baso # (Auto) 0.0 Neutrophils % (Manual) Band Neutrophils % Lymphocytes % (Manual) Monocytes % (Manual) Platelet Estimate RBC Morphology Puncture Site pCO2 pO2 HCO3 ABG pH ABG Total CO2 ABG O2 Saturation ABG Base Excess Abel Test ABG Potassium A-a O2 Difference Respiratory Index Glucose Lactate FiO2 Sodium 139 Potassium 4.0 Chloride 109 H Carbon Dioxide 17 L Anion Gap 17 BUN 31 H Creatinine 2.5 H Est GFR ( Amer) 23 Est GFR (Non-Af Amer) 19 POC Glucose (mg/dL) Random Glucose 178 H Calcium 8.6 Phosphorus Magnesium Total Bilirubin 1.1 AST 230 H D ALT 78 H D Alkaline Phosphatase 438 H D Total Protein 7.5 Albumin 3.2 L Globulin 4.3 H Albumin/Globulin Ratio 0.8 L Lipase 332 H CA 19-9 Antigen Arterial Blood Potassium Urine Color Yellow Urine Clarity Hazy Urine pH 7.0 Ur Specific [place] 1.009 Urine Protein 3+ H Urine Glucose (UA) 2+ H Urine Ketones Negative Urine Blood 1+ H Urine Nitrate Negative Urine Bilirubin Negative Urine Urobilinogen Normal Ur Leukocyte Esterase 2+ H Urine WBC (Auto) 37 H Urine RBC (Auto) 19 H Urine WBC Clumps (Auto) Few H Ur Squamous Epith Cells 1 Urine Bacteria Mod H 05/06/17 05/06/17 05/06/17 16:53 17:18 17:53 WBC RBC Hgb Hct MCV MCH MCHC RDW Plt Count MPV Neut % (Auto) Lymph % (Auto) [place] % (Auto) Eos % (Auto) Baso % (Auto) Neut # (Auto) Lymph # (Auto) [place] # (Auto) Eos # (Auto) Baso # (Auto) Neutrophils % (Manual) Band Neutrophils % Lymphocytes % (Manual) Monocytes % (Manual) Platelet Estimate RBC Morphology Puncture Site Rr pCO2 35 pO2 67 L HCO3 17.0 L ABG pH 7.27 L ABG Total CO2 17.2 L ABG O2 Saturation 97.6 ABG Base Excess -9.9 L Abel Test Po ABG Potassium 3.7 A-a O2 Difference 39.0 Respiratory Index 0.6 Glucose 177 H Lactate 1.2 FiO2 21.0 Sodium 139.0 Potassium Chloride 113.0 H Carbon Dioxide Anion Gap BUN Creatinine Est GFR ( Amer) Est GFR (Non-Af Amer) POC Glucose (mg/dL) 185 H Random Glucose Calcium Phosphorus Magnesium Total Bilirubin AST ALT Alkaline Phosphatase Total Protein Albumin Globulin Albumin/Globulin Ratio Lipase CA 19-9 Antigen 109 H D Arterial Blood Potassium 3.7 Urine Color Urine Clarity Urine pH Ur Specific [place] Urine Protein Urine Glucose (UA) Urine Ketones Urine Blood Urine Nitrate Urine Bilirubin Urine Urobilinogen Ur Leukocyte Esterase Urine WBC (Auto) Urine RBC (Auto) Urine WBC Clumps (Auto) Ur Squamous Epith Cells Urine Bacteria 05/06/17 05/07/17 05/07/17 21:00 06:17 06:17 WBC 13.8 H D RBC 2.68 L Hgb 8.2 L Hct 24.6 L MCV 91.9 MCH 30.7 MCHC 33.4 RDW 14.8 H Plt Count 119 L MPV 9.5 Neut % (Auto) 91.9 H Lymph % (Auto) 3.4 L [place] % (Auto) 4.6 Eos % (Auto) 0.0 Baso % (Auto) 0.1 Neut # (Auto) 12.7 H Lymph # (Auto) 0.5 L [place] # (Auto) 0.6 Eos # (Auto) 0.0 Baso # (Auto) 0.0 Neutrophils % (Manual) 68 Band Neutrophils % 26 H* Lymphocytes % (Manual) 2 L Monocytes % (Manual) 4 Platelet Estimate Slightly decreased L RBC Morphology Normal Puncture Site pCO2 pO2 HCO3 ABG pH ABG Total CO2 ABG O2 Saturation ABG Base Excess Abel Test ABG Potassium A-a O2 Difference Respiratory Index Glucose Lactate FiO2 Sodium 141 Potassium 4.4 Chloride 111 H Carbon Dioxide 18 L Anion Gap 17 BUN 27 H Creatinine 2.4 H Est GFR ( Amer) 24 Est GFR (Non-Af Amer) 20 POC Glucose (mg/dL) 170 H Random Glucose 125 H Calcium 8.2 L Phosphorus 4.8 H Magnesium 1.8 Total Bilirubin 4.2 H AST 202 H ALT 124 H D Alkaline Phosphatase 405 H Total Protein 6.9 Albumin 2.8 L Globulin 4.1 H Albumin/Globulin Ratio 0.7 L Lipase 59 CA 19-9 Antigen Arterial Blood Potassium Urine Color Urine Clarity Urine pH Ur Specific [place] Urine Protein Urine Glucose (UA) Urine Ketones Urine Blood Urine Nitrate Urine Bilirubin Urine Urobilinogen Ur Leukocyte Esterase Urine WBC (Auto) Urine RBC (Auto) Urine WBC Clumps (Auto) Ur Squamous Epith Cells Urine Bacteria 05/07/17 05/07/17 06:39 12:40 WBC RBC Hgb Hct MCV MCH MCHC RDW Plt Count MPV Neut % (Auto) Lymph % (Auto) [place] % (Auto) Eos % (Auto) Baso % (Auto) Neut # (Auto) Lymph # (Auto) [place] # (Auto) Eos # (Auto) Baso # (Auto) Neutrophils % (Manual) Band Neutrophils % Lymphocytes % (Manual) Monocytes % (Manual) Platelet Estimate RBC Morphology Puncture Site pCO2 pO2 HCO3 ABG pH ABG Total CO2 ABG O2 Saturation ABG Base Excess Abel Test ABG Potassium A-a O2 Difference Respiratory Index Glucose Lactate FiO2 Sodium Potassium Chloride Carbon Dioxide Anion Gap BUN Creatinine Est GFR ( Amer) Est GFR (Non-Af Amer) POC Glucose (mg/dL) 130 H 122 H Random Glucose Calcium Phosphorus Magnesium Total Bilirubin AST ALT Alkaline Phosphatase Total Protein Albumin Globulin Albumin/Globulin Ratio Lipase CA 19-9 Antigen Arterial Blood Potassium Urine Color Urine Clarity Urine pH Ur Specific [place] Urine Protein Urine Glucose (UA) Urine Ketones Urine Blood Urine Nitrate Urine Bilirubin Urine Urobilinogen Ur Leukocyte Esterase Urine WBC (Auto) Urine RBC (Auto) Urine WBC Clumps (Auto) Ur Squamous Epith Cells Urine Bacteria Assessment & Plan (1) Chronic kidney disease, stage IV (severe) Status: Acute (2) Proteinuria Status: Acute (3) Biliary obstruction Status: Acute (4) Cholangiocarcinoma Status: Acute (5) HTN (hypertension) Status: Acute - Assessment and Plan (Free Text) Plan: IV fluids check proteinuria repeat chemistries surgical follow up
--- NOTE | 2017-05-07 15:26 | CP.PCM.PN ---
Subjective - Date & Time of Evaluation Date of Evaluation: 05/07/17 Time of Evaluation: 07:00 - Subjective Subjective: Surgery: Dr. Hawley Pt seen and examined. No acute overnight events. This morning pt complaining of some chest discomfort and stat EKG ordered. Pt states abdominal pain is improved. Denies F/C, N/V. Objective - Vital Signs/Intake and Output Vital Signs (last 24 hours): Temp Pulse Resp BP Pulse Ox 100.4 F H 78 15 146/59 L 97 05/07/17 11:35 05/07/17 11:35 05/07/17 11:35 05/07/17 11:35 05/07/17 11:35 Intake and Output: 05/07/17 05/07/17 06:59 18:59 Intake Total 50 350 Balance 50 350 - Medications Medications: Current Medications Clopidogrel Bisulfate (Plavix) 75 mg PO DAILY [facility] Dextrose (Dextrose 50% Inj) 0 ml IV STAT PRN; Protocol PRN Reason: Hypoglycemia Protocol Dextrose (Glutose 15) 0 gm PO ONCE PRN; Protocol PRN Reason: Hypoglycemia Protocol Enoxaparin Sodium (Lovenox) 30 mg SC DAILY [facility] Last Admin: 05/07/17 09:20 Dose: Not Given Glucagon (Glucagen Diagnostic Kit) 0 mg IM STAT PRN; Protocol PRN Reason: Hypoglycemia Protocol Hydralazine HCl (Apresoline) 10 mg IVP Q6H PRN PRN Reason: Systolic Blood Pressure Last Admin: 05/07/17 05:36 Dose: 10 mg Hydromorphone HCl (Dilaudid) 2 mg IVP Q4H PRN PRN Reason: Pain, moderate (4-7) Last Admin: 05/07/17 04:58 Dose: 2 mg Piperacillin Sod/Tazobactam Sod (Zosyn 2.25 Gm Iv Premix) 2.25 gm in 50 mls @ 100 mls/hr IVPB Q6H JESSICA PRN Reason: Protocol Last Admin: 05/07/17 12:48 Dose: Not Given Dextrose/Sodium Chloride (Dextrose 5%/0.9% Ns 1000 Ml) 1,000 mls @ 75 mls/hr IV .[id number] [facility] Last Admin: 05/07/17 08:49 Dose: 75 mls/hr Dextrose (Dextrose 5% In Water 1000 Ml) 1,000 mls @ 0 mls/hr IV .Q0M PRN; Protocol; Per Protocol PRN Reason: Hypoglycemia Protocol Insulin Human Regular (Novolin R) 0 unit SC ACHS [facility] PRN Reason: Protocol Last Admin: 05/07/17 12:48 Dose: Not Given Nebivolol (Bystolic) 2.5 mg PO DAILY [facility] Last Admin: 05/07/17 12:34 Dose: 2.5 mg Nifedipine (Procardia Xl) 120 mg PO DAILY [facility] Last Admin: 05/07/17 12:34 Dose: 120 mg Ondansetron HCl (Zofran Inj) 4 mg IVP Q6H PRN PRN Reason: Nausea/Vomiting Pantoprazole Sodium (Protonix Inj) 40 mg IVP DAILY [facility] Last Admin: 05/07/17 14:27 Dose: 40 mg Sitagliptin Phosphate (Januvia) 50 mg PO DAILY [facility] Last Admin: 05/07/17 12:37 Dose: 50 mg Sodium Bicarbonate (Sodium Bicarbonate Tab) 650 mg PO TID [facility] Last Admin: 05/07/17 13:24 Dose: Not Given Topiramate (Topamax) 50 mg PO BID [facility] Last Admin: 05/07/17 12:38 Dose: 50 mg - Labs Labs: 05/07/17 06:17 05/07/17 06:17 - Constitutional Appears: Well, No Acute Distress - Eye Exam Eye Exam: Normal appearance - ENT Exam ENT Exam: Mucous Membranes Moist - Respiratory Exam Respiratory Exam: NORMAL BREATHING PATTERN - Cardiovascular Exam Cardiovascular Exam: RRR - GI/Abdominal Exam GI & Abdominal Exam: Soft. absent: Tenderness - Neurological Exam Neurological Exam: Alert, Awake, Oriented x3 - Skin Skin Exam: Dry, Warm Assessment and Plan - Assessment and Plan (Free Text) Assessment: 76F with cholangiocarcinoma scheduled for surgery with Dr. Hawley on May 18 ; admitted for abdominal pain Plan: - pt s/p ERCP; stent exchange done - started on CLD by GI - cont medical management for UTI - surgical intervention as planned on May 18 - d/w Dr. Marleen Cameron, PGY-3
[2017-05-07] MEDS ORDERED: Aztreonam 2 GM in Sodium Chloride 0.9% 100 ML IVPB ONE (15:41)
[2017-05-07] MEDS ORDERED: Meropenem 500 MG in Sodium Chloride 0.9% 100 ML IVPB SCH (15:45)
[2017-05-07] MEDS: Meropenem IV 1 gm in NS 50 ML IVPB SCH (17:51)
--- NOTE | 2017-05-07 18:07 | US ---
PROCEDURE: Ultrasound of the Kidneys HISTORY: ckd COMPARISON: 11/30/2016.. TECHNIQUE: Sonogram of the kidneys. FINDINGS: RIGHT KIDNEY: Measures: 3.6 x 5 x 8.1 cm. Atrophic right kidney, echo characteristics compatible with medical renal disease. No stone, solid mass lesion or hydronephrosis visualized. Incidental finding(s): Upper pole cyst 1.3 x 1.1 cm LEFT KIDNEY: Measures: 4.5 x 4.7 x 9.7 cm. Increased echogenicity compatible with medical renal disease. No stone, solid mass lesion or hydronephrosis visualized. Incidental finding(s): Midpole cyst 1.3 x 1.5 cm. Smaller upper pole cysts the largest 1.2 cm. OTHER FINDINGS: None. IMPRESSION: Evidence of medical renal disease without findings of obstructive uropathy or other pathologic process. No significant change compared to the prior study.
[2017-05-07 21:09] LABS: SQUAMOUS EPITHIAL 1 /hpf (0-5); URINE BACTERIA RARE (<OCC); URINE BILIRUBIN NEGATIVE (NEGATIVE); URINE BLOOD 2+ (NEGATIVE); URINE CALCIUM OXALATE CRYSTALS OCC /hpf (<OCC); URINE CLARITY Hazy (Clear); URINE GLUCOSE (UA) 2+ mg/dL (Normal); URINE LEUKOCYTE ESTERASE 1+ Leu/uL (Negative); URINE PROTEIN 3+ mg/dL (NEGATIVE); URINE UROBILINOGEN NORMAL mg/dL (0.2-1.0)
[2017-05-07 21:12] LABS: URINE COLOR YELLOW (YELLOW)
--- NOTE | 2017-05-07 22:21 | CP.PCM.CON ---
History of Present Illness - History of Present Illness History of Present Illness: dictated Past Patient History - Infectious Disease Hx of Infectious Diseases: None - Past Medical History & Family History Past Medical History?: Yes - Past Social History Smoking Status: Never Smoked Alcohol: None Drugs: Denies Home Situation {Lives}: With Family - CARDIAC Hx Hypercholesterolemia: Yes Hx Hypertension: Yes Hx Pacemaker: No - PULMONARY Hx Respiratory Disorders: No - NEUROLOGICAL Hx Migraine: Yes - HEENT Hx HEENT Problems: No - RENAL Hx Chronic Kidney Disease: No - ENDOCRINE/METABOLIC Hx Diabetes Mellitus Type 2: Yes - HEMATOLOGICAL/ONCOLOGICAL Hx Blood Transfusions: No Hx Blood Transfusion Reaction: No Hx Cancer: Yes (Hx of colon CA (mass)) - INTEGUMENTARY Hx Dermatological Problems: No - MUSCULOSKELETAL/RHEUMATOLOGICAL Hx Arthritis: Yes Hx Osteoporosis: Yes - GASTROINTESTINAL Hx Pancreatitis: Yes - GENITOURINARY/GYNECOLOGICAL Hx Genitourinary Disorders: No - PSYCHIATRIC Hx Substance Use: No - SURGICAL HISTORY Hx Appendectomy: Yes Hx Cholecystectomy: Yes Hx Coronary Stent: Yes (X4) - ANESTHESIA Hx Anesthesia: Yes Hx Anesthesia Reactions: Yes Hx Malignant Hyperthermia: No Meds Allergies/Adverse Reactions: Allergies Allergy/AdvReac Type Severity Reaction Status Date / Time ciprofloxacin [From Cipro] Allergy ANAPHYLAXIS Verified 05/06/17 13:58 ciprofloxacin HCl Allergy ANAPHYLAXIS Verified 05/06/17 13:58 [From Cipro] seafood Allergy ANAPHYLAXIS Uncoded 05/06/17 13:58 - Medications Medications: Current Medications Clopidogrel Bisulfate (Plavix) 75 mg PO DAILY [facility] Dextrose (Dextrose 50% Inj) 0 ml IV STAT PRN; Protocol PRN Reason: Hypoglycemia Protocol Dextrose (Glutose 15) 0 gm PO ONCE PRN; Protocol PRN Reason: Hypoglycemia Protocol Enoxaparin Sodium (Lovenox) 30 mg SC DAILY [facility] Last Admin: 05/07/17 09:20 Dose: Not Given Glucagon (Glucagen Diagnostic Kit) 0 mg IM STAT PRN; Protocol PRN Reason: Hypoglycemia Protocol Hydralazine HCl (Apresoline) 10 mg IVP Q6H PRN PRN Reason: Systolic Blood Pressure Last Admin: 05/07/17 05:36 Dose: 10 mg Hydromorphone HCl (Dilaudid) 2 mg IVP Q4H PRN PRN Reason: Pain, moderate (4-7) Last Admin: 05/07/17 20:56 Dose: 2 mg Dextrose/Sodium Chloride (Dextrose 5%/0.9% Ns 1000 Ml) 1,000 mls @ 75 mls/hr IV .[id number] [facility] Last Admin: 05/07/17 20:53 Dose: 75 mls/hr Dextrose (Dextrose 5% In Water 1000 Ml) 1,000 mls @ 0 mls/hr IV .Q0M PRN; Protocol; Per Protocol PRN Reason: Hypoglycemia Protocol Meropenem (Merrem Iv 1 Gm Premix) 50 mls @ 50 mls/hr IVPB Q12H JESSICA PRN Reason: Protocol Last Admin: 05/07/17 17:51 Dose: 50 mls/hr Insulin Human Regular (Novolin R) 0 unit SC ACHS [facility] PRN Reason: Protocol Last Admin: 05/07/17 21:23 Dose: Not Given Nebivolol (Bystolic) 2.5 mg PO DAILY [facility] Last Admin: 05/07/17 12:34 Dose: 2.5 mg Nifedipine (Procardia Xl) 120 mg PO DAILY [facility] Last Admin: 05/07/17 12:34 Dose: 120 mg Ondansetron HCl (Zofran Inj) 4 mg IVP Q6H PRN PRN Reason: Nausea/Vomiting Pantoprazole Sodium (Protonix Inj) 40 mg IVP DAILY [facility] Last Admin: 05/07/17 14:27 Dose: 40 mg Topiramate (Topamax) 50 mg PO BID [facility] Last Admin: 05/07/17 17:51 Dose: 50 mg Results - Vital Signs Recent Vital Signs: Last Vital Signs Temp 98.7 F 05/07/17 21:32 Pulse 78 05/07/17 15:20 Resp 20 05/07/17 15:20 BP 163/83 H 05/07/17 15:20 Pulse Ox 94 L 05/07/17 15:20 - Labs Result Diagrams: 05/07/17 06:17 05/07/17 06:17 Labs: Laboratory Results - last 24 hr 05/07/17 05/07/17 05/07/17 06:17 06:17 06:39 WBC 13.8 H D RBC 2.68 L Hgb 8.2 L Hct 24.6 L MCV 91.9 MCH 30.7 MCHC 33.4 RDW 14.8 H Plt Count 119 L MPV 9.5 Neut % (Auto) 91.9 H Lymph % (Auto) 3.4 L [place] % (Auto) 4.6 Eos % (Auto) 0.0 Baso % (Auto) 0.1 Neut # (Auto) 12.7 H Lymph # (Auto) 0.5 L [place] # (Auto) 0.6 Eos # (Auto) 0.0 Baso # (Auto) 0.0 Neutrophils % (Manual) 68 Band Neutrophils % 26 H* Lymphocytes % (Manual) 2 L Monocytes % (Manual) 4 Platelet Estimate Slightly decreased L RBC Morphology Normal Sodium 141 Potassium 4.4 Chloride 111 H Carbon Dioxide 18 L Anion Gap 17 BUN 27 H Creatinine 2.4 H Est GFR ( Amer) 24 Est GFR (Non-Af Amer) 20 POC Glucose (mg/dL) 130 H Random Glucose 125 H Calcium 8.2 L Phosphorus 4.8 H Magnesium 1.8 Total Bilirubin 4.2 H AST 202 H ALT 124 H D Alkaline Phosphatase 405 H Total Protein 6.9 Albumin 2.8 L Globulin 4.1 H Albumin/Globulin Ratio 0.7 L Lipase 59 Urine Color Urine Clarity Urine pH Ur Specific [place] Urine Protein Urine Glucose (UA) Urine Ketones Urine Blood Urine Nitrate Urine Bilirubin Urine Urobilinogen Ur Leukocyte Esterase Urine WBC (Auto) Urine RBC (Auto) Ur Squamous Epith Cells Calcium Oxalate Crystal Urine Bacteria 05/07/17 05/07/17 05/07/17 12:40 16:11 20:51 WBC RBC Hgb Hct MCV MCH MCHC RDW Plt Count MPV Neut % (Auto) Lymph % (Auto) [place] % (Auto) Eos % (Auto) Baso % (Auto) Neut # (Auto) Lymph # (Auto) [place] # (Auto) Eos # (Auto) Baso # (Auto) Neutrophils % (Manual) Band Neutrophils % Lymphocytes % (Manual) Monocytes % (Manual) Platelet Estimate RBC Morphology Sodium Potassium Chloride Carbon Dioxide Anion Gap BUN Creatinine Est GFR ( Amer) Est GFR (Non-Af Amer) POC Glucose (mg/dL) 122 H 138 H Random Glucose Calcium Phosphorus Magnesium Total Bilirubin AST ALT Alkaline Phosphatase Total Protein Albumin Globulin Albumin/Globulin Ratio Lipase Urine Color Yellow Urine Clarity Hazy Urine pH 7.0 Ur Specific [place] 1.014 Urine Protein 3+ H Urine Glucose (UA) 2+ H Urine Ketones Negative Urine Blood 2+ H Urine Nitrate Negative Urine Bilirubin Negative Urine Urobilinogen Normal Ur Leukocyte Esterase 1+ H Urine WBC (Auto) 75 H Urine RBC (Auto) 126 H Ur Squamous Epith Cells 1 Calcium Oxalate Crystal Occ H Urine Bacteria Rare 05/07/17 21:14 WBC RBC Hgb Hct MCV MCH MCHC RDW Plt Count MPV Neut % (Auto) Lymph % (Auto) [place] % (Auto) Eos % (Auto) Baso % (Auto) Neut # (Auto) Lymph # (Auto) [place] # (Auto) Eos # (Auto) Baso # (Auto) Neutrophils % (Manual) Band Neutrophils % Lymphocytes % (Manual) Monocytes % (Manual) Platelet Estimate RBC Morphology Sodium Potassium Chloride Carbon Dioxide Anion Gap BUN Creatinine Est GFR ( Amer) Est GFR (Non-Af Amer) POC Glucose (mg/dL) 156 H Random Glucose Calcium Phosphorus Magnesium Total Bilirubin AST ALT Alkaline Phosphatase Total Protein Albumin Globulin Albumin/Globulin Ratio Lipase Urine Color Urine Clarity Urine pH Ur Specific [place] Urine Protein Urine Glucose (UA) Urine Ketones Urine Blood Urine Nitrate Urine Bilirubin Urine Urobilinogen Ur Leukocyte Esterase Urine WBC (Auto) Urine RBC (Auto) Ur Squamous Epith Cells Calcium Oxalate Crystal Urine Bacteria
--- NOTE | 2017-05-07 23:52 | CP.PCM.CON ---
History of Present Illness - History of Present Illness History of Present Illness: 76 year old female with a history of CAD, CHF, CKD, cirrhosis, cholangiocarcinoma dx 03/2017 scheduled for hepatibiliary surgery in May admitted with obstructive jaundice, cholangitis s/p ERCP with stent replacement. Per the patietns family, she has had worsenign fatigue with increased abdominal pain over the week. Due to the pain, she was brought to the hospital. She is currently s/p ERCP with removal of sludge/blood clot and stent replcacement. Past medical history: CAD, CHF, CKD Past surgical history: Cholecystectomy Family history: Denies hematologic and oncologic problems Social history: Denies tobacco, alcohol, and illicit drug use. Allergies: Cipro Review of systems: All remaining review of systems including HEENT, cardiovascular, respiratory, gastrointestinal, genitourinary, musculoskeletal, dermatologic, neurologic, and psychiatric are negative unless mentioned in the HPI Past Patient History - Infectious Disease Hx of Infectious Diseases: None - Past Medical History & Family History Past Medical History?: Yes - Past Social History Smoking Status: Never Smoked Alcohol: None Drugs: Denies Home Situation {Lives}: With Family - CARDIAC Hx Hypercholesterolemia: Yes Hx Hypertension: Yes Hx Pacemaker: No - PULMONARY Hx Respiratory Disorders: No - NEUROLOGICAL Hx Migraine: Yes - HEENT Hx HEENT Problems: No - RENAL Hx Chronic Kidney Disease: No - ENDOCRINE/METABOLIC Hx Diabetes Mellitus Type 2: Yes - HEMATOLOGICAL/ONCOLOGICAL Hx Blood Transfusions: No Hx Blood Transfusion Reaction: No Hx Cancer: Yes (Hx of colon CA (mass)) - INTEGUMENTARY Hx Dermatological Problems: No - MUSCULOSKELETAL/RHEUMATOLOGICAL Hx Arthritis: Yes Hx Osteoporosis: Yes - GASTROINTESTINAL Hx Pancreatitis: Yes - GENITOURINARY/GYNECOLOGICAL Hx Genitourinary Disorders: No - PSYCHIATRIC Hx Substance Use: No - SURGICAL HISTORY Hx Appendectomy: Yes Hx Cholecystectomy: Yes Hx Coronary Stent: Yes (X4) - ANESTHESIA Hx Anesthesia: Yes Hx Anesthesia Reactions: Yes Hx Malignant Hyperthermia: No Meds Allergies/Adverse Reactions: Allergies Allergy/AdvReac Type Severity Reaction Status Date / Time ciprofloxacin [From Cipro] Allergy ANAPHYLAXIS Verified 05/06/17 13:58 ciprofloxacin HCl Allergy ANAPHYLAXIS Verified 05/06/17 13:58 [From Cipro] seafood Allergy ANAPHYLAXIS Uncoded 05/06/17 13:58 - Medications Medications: Current Medications Clopidogrel Bisulfate (Plavix) 75 mg PO DAILY [facility] Dextrose (Dextrose 50% Inj) 0 ml IV STAT PRN; Protocol PRN Reason: Hypoglycemia Protocol Dextrose (Glutose 15) 0 gm PO ONCE PRN; Protocol PRN Reason: Hypoglycemia Protocol Enoxaparin Sodium (Lovenox) 30 mg SC DAILY [facility] Last Admin: 05/07/17 09:20 Dose: Not Given Glucagon (Glucagen Diagnostic Kit) 0 mg IM STAT PRN; Protocol PRN Reason: Hypoglycemia Protocol Hydralazine HCl (Apresoline) 10 mg IVP Q6H PRN PRN Reason: Systolic Blood Pressure Last Admin: 05/07/17 05:36 Dose: 10 mg Hydromorphone HCl (Dilaudid) 2 mg IVP Q4H PRN PRN Reason: Pain, moderate (4-7) Last Admin: 05/07/17 20:56 Dose: 2 mg Dextrose/Sodium Chloride (Dextrose 5%/0.9% Ns 1000 Ml) 1,000 mls @ 75 mls/hr IV .[id number] [facility] Last Admin: 05/07/17 20:53 Dose: 75 mls/hr Dextrose (Dextrose 5% In Water 1000 Ml) 1,000 mls @ 0 mls/hr IV .Q0M PRN; Protocol; Per Protocol PRN Reason: Hypoglycemia Protocol Meropenem (Merrem Iv 1 Gm Premix) 50 mls @ 50 mls/hr IVPB Q12H [facility] PRN Reason: Protocol Last Admin: 05/07/17 17:51 Dose: 50 mls/hr Insulin Human Regular (Novolin R) 0 unit SC ACHS [facility] PRN Reason: Protocol Last Admin: 05/07/17 21:23 Dose: Not Given Nebivolol (Bystolic) 2.5 mg PO DAILY [facility] Last Admin: 05/07/17 12:34 Dose: 2.5 mg Nifedipine (Procardia Xl) 120 mg PO DAILY [facility] Last Admin: 05/07/17 12:34 Dose: 120 mg Ondansetron HCl (Zofran Inj) 4 mg IVP Q6H PRN PRN Reason: Nausea/Vomiting Pantoprazole Sodium (Protonix Inj) 40 mg IVP DAILY [facility] Last Admin: 05/07/17 14:27 Dose: 40 mg Topiramate (Topamax) 50 mg PO BID [facility] Last Admin: 05/07/17 17:51 Dose: 50 mg Physical Exam - Head Exam Head Exam: ATRAUMATIC - Eye Exam Eye Exam: Normal appearance, Scleral icterus - ENT Exam ENT Exam: Mucous Membranes Dry - Respiratory Exam Respiratory Exam: NORMAL BREATHING PATTERN - Cardiovascular Exam Cardiovascular Exam: +S1, +S2 - GI/Abdominal Exam GI & Abdominal Exam: Normal Bowel Sounds - Extremities Exam Extremities exam: Positive for: normal inspection - Neurological Exam Neurological exam: Oriented x3 - Psychiatric Exam Psychiatric exam: Normal Affect, Normal Mood - Skin Skin Exam: Warm Results - Vital Signs Recent Vital Signs: Last Vital Signs Temp 98.7 F 05/07/17 21:32 Pulse 78 05/07/17 15:20 Resp 20 05/07/17 15:20 BP 163/83 H 05/07/17 15:20 Pulse Ox 94 L 05/07/17 15:20 - Labs Result Diagrams: 05/07/17 06:17 05/07/17 06:17 Labs: Laboratory Results - last 24 hr 05/07/17 05/07/17 05/07/17 06:17 06:17 06:39 WBC 13.8 H D RBC 2.68 L Hgb 8.2 L Hct 24.6 L MCV 91.9 MCH 30.7 MCHC 33.4 RDW 14.8 H Plt Count 119 L MPV 9.5 Neut % (Auto) 91.9 H Lymph % (Auto) 3.4 L [place] % (Auto) 4.6 Eos % (Auto) 0.0 Baso % (Auto) 0.1 Neut # (Auto) 12.7 H Lymph # (Auto) 0.5 L [place] # (Auto) 0.6 Eos # (Auto) 0.0 Baso # (Auto) 0.0 Neutrophils % (Manual) 68 Band Neutrophils % 26 H* Lymphocytes % (Manual) 2 L Monocytes % (Manual) 4 Platelet Estimate Slightly decreased L RBC Morphology Normal Sodium 141 Potassium 4.4 Chloride 111 H Carbon Dioxide 18 L Anion Gap 17 BUN 27 H Creatinine 2.4 H Est GFR ( Amer) 24 Est GFR (Non-Af Amer) 20 POC Glucose (mg/dL) 130 H Random Glucose 125 H Calcium 8.2 L Phosphorus 4.8 H Magnesium 1.8 Total Bilirubin 4.2 H AST 202 H ALT 124 H D Alkaline Phosphatase 405 H Total Protein 6.9 Albumin 2.8 L Globulin 4.1 H Albumin/Globulin Ratio 0.7 L Lipase 59 Urine Color Urine Clarity Urine pH Ur Specific [place] Urine Protein Urine Glucose (UA) Urine Ketones Urine Blood Urine Nitrate Urine Bilirubin Urine Urobilinogen Ur Leukocyte Esterase Urine WBC (Auto) Urine RBC (Auto) Ur Squamous Epith Cells Calcium Oxalate Crystal Urine Bacteria 05/07/17 05/07/17 05/07/17 12:40 16:11 20:51 WBC RBC Hgb Hct MCV MCH MCHC RDW Plt Count MPV Neut % (Auto) Lymph % (Auto) [place] % (Auto) Eos % (Auto) Baso % (Auto) Neut # (Auto) Lymph # (Auto) [place] # (Auto) Eos # (Auto) Baso # (Auto) Neutrophils % (Manual) Band Neutrophils % Lymphocytes % (Manual) Monocytes % (Manual) Platelet Estimate RBC Morphology Sodium Potassium Chloride Carbon Dioxide Anion Gap BUN Creatinine Est GFR ( Amer) Est GFR (Non-Af Amer) POC Glucose (mg/dL) 122 H 138 H Random Glucose Calcium Phosphorus Magnesium Total Bilirubin AST ALT Alkaline Phosphatase Total Protein Albumin Globulin Albumin/Globulin Ratio Lipase Urine Color Yellow Urine Clarity Hazy Urine pH 7.0 Ur Specific [place] 1.014 Urine Protein 3+ H Urine Glucose (UA) 2+ H Urine Ketones Negative Urine Blood 2+ H Urine Nitrate Negative Urine Bilirubin Negative Urine Urobilinogen Normal Ur Leukocyte Esterase 1+ H Urine WBC (Auto) 75 H Urine RBC (Auto) 126 H Ur Squamous Epith Cells 1 Calcium Oxalate Crystal Occ H Urine Bacteria Rare 05/07/17 21:14 WBC RBC Hgb Hct MCV MCH MCHC RDW Plt Count MPV Neut % (Auto) Lymph % (Auto) [place] % (Auto) Eos % (Auto) Baso % (Auto) Neut # (Auto) Lymph # (Auto) [place] # (Auto) Eos # (Auto) Baso # (Auto) Neutrophils % (Manual) Band Neutrophils % Lymphocytes % (Manual) Monocytes % (Manual) Platelet Estimate RBC Morphology Sodium Potassium Chloride Carbon Dioxide Anion Gap BUN Creatinine Est GFR ( Amer) Est GFR (Non-Af Amer) POC Glucose (mg/dL) 156 H Random Glucose Calcium Phosphorus Magnesium Total Bilirubin AST ALT Alkaline Phosphatase Total Protein Albumin Globulin Albumin/Globulin Ratio Lipase Urine Color Urine Clarity Urine pH Ur Specific [place] Urine Protein Urine Glucose (UA) Urine Ketones Urine Blood Urine Nitrate Urine Bilirubin Urine Urobilinogen Ur Leukocyte Esterase Urine WBC (Auto) Urine RBC (Auto) Ur Squamous Epith Cells Calcium Oxalate Crystal Urine Bacteria Assessment & Plan (1) Anemia Assessment and Plan: likely chronic disease and anemia of CKD transfusion support PRN Status: Acute (2) Thrombocytopenia Assessment and Plan: liver disease likely exacerbated by infection Status: Acute (3) Leukocytosis Assessment and Plan: on antibiotics Status: Acute (4) Cholangiocarcinoma Assessment and Plan: no distant metastasis by imaging in 03/2017 for hepatobiliary surgery 05/2017 outpatient f/u Thank you for this interesting consult. Status: Acute
[2017-05-08] MEDS: Meropenem IV 1 gm in NS 50 ML IVPB SCH ×2 (05:15→17:32)
[2017-05-08 07:37] LABS: MEAN CELL VOLUME 90.8 fL (81.0-99.0); MEAN CORPUSCULAR HEMOGLOBIN 31.3 pg (27.0-31.0); MEAN CORPUSCULAR HGB CONC 34.5 g/dL (33.0-37.0); MEAN PLATELET VOLUME 9.9 fL (7.2-11.7); PLATELET COUNT 100 K/uL (130-400); RBC 2.56 Mil/uL (3.80-5.20); RED CELL DISTRIBUTION WIDTH 15.2 % (11.5-14.5); WHITE BLOOD COUNT 8.9 K/uL (4.8-10.8)
[2017-05-08] MEDS: (Novolin R) Insulin Human Regular 100 units/ml vial SC SCH ×4 (07:57→21:46)
[2017-05-08 08:27] LABS: ALB/GLOB RATIO 0.7 (1.0-2.1); ALBUMIN 2.6 g/dL (3.5-5.0)
--- NOTE | 2017-05-08 08:28 | RAD ---
HISTORY: Shortness of breath, crackles on exam COMPARISON: 05/07/2017. FINDINGS: LUNGS: The lungs are well inflated. There is moderate pulmonary venous congestion. There is worsening airspace disease in both lower lobes, worse on the left. PLEURA: No significant pleural effusion identified, no pneumothorax apparent. CARDIOVASCULAR: There is persistent moderate cardiomegaly. OSSEOUS STRUCTURES: No significant abnormalities. VISUALIZED UPPER ABDOMEN: Normal. OTHER FINDINGS: None. IMPRESSION: Worsening airspace disease in the lower lobes may represent worsening pneumonia. Follow-up is advised. Persistent moderate cardiomegaly and pulmonary venous congestion.
[2017-05-08 08:38] LABS: BANDS 19 % (0-2); EOSINOPHIL 1 % (0-4); LYMPHOCYTE 7 % (20-40); MONOCYTE 4 % (0-10); NEUTROPHIL 69 % (50-75); TOTAL CELLS COUNTED 100
[2017-05-08 08:39] LABS: ANISOCYTOSIS SLIGHT; HYPOCHROMIC MODERATE; PLATELET ESTIMATE SLIGHTLY DECREASED (NORMAL); POIKILOCYTOSIS SLIGHT; TOXIC GRANULATION PRESENT
[2017-05-08 08:40] LABS: BURR CELLS SLIGHT
--- NOTE | 2017-05-08 09:19 | CON ---
DATE: HISTORY OF PRESENT ILLNESS: The patient is a 76-year-old female. She was admitted with abdominal pain. She has invasive cholangiocarcinoma which was recently diagnosed in March. The patient has invasive cholangiocarcinoma, pancreatic cyst, liver cirrhosis, hypertension, diabetes, CKD, rheumatoid arthritis, osteoarthritis, and anemia; was admitted with abdominal pain, she reported it suddenly while she was walking to [place] 06 and the pain was sharp in the right side of her abdomen 10/10, and she presented with nausea and vomiting. Promptly noted eight episodes of nonbloody vomiting with pain, and she did not take any pain medicine. Had no fever but I am asked to see her because she has severe bandemia and CBC and she was in pain. She just recently got a stent done today. She previously did have a stent which was there from February or March which has blocked and they had to change it today. The patient's admission was here in March when she was diagnosed with cholangiocarcinoma, pancreatic cyst and liver cirrhosis, and her daughter is at the bedside. She had a PET scan, and she is due to have on 05/18, Whipple procedure with Dr. Hawley. The patient is being followed by multiple consultants. SURGICAL HISTORY: Significant for cholecystectomy and appendicectomy. ALLERGIES: SHE IS ALLERGIC TO FISH AND CIPRO WHICH CAUSES ANAPHYLAXIS. SOCIAL HISTORY: Negative for smoking, drinking, or any drug abuse. FAMILY HISTORY: Unremarkable. She is Dr. Mickey Suh's patient. MEDICATIONS: For blood pressure, she was on Procardia and Bystolic. For diabetes, she was on Januvia and metformin which is on hold now. For coronary artery disease, on Plavix; and Renal, sodium bicarbonate three times a day. Neuro portillo, she is on Topamax by mouth twice a day and Nuedexta one tablet by mouth twice a day. REVIEW OF SYSTEMS: She did not have any chills or fever but came in with abdominal pain, nausea, and vomiting. She has no upper respiratory symptoms. No nasal congestion. No cough. No hemoptysis. She denied any chest pain. No dyspnea. She has right upper quadrant pain, nausea, and vomiting. No constipation. No diarrhea. No urinary symptoms reported but she turned out to have UTI at this time. Has no joint pain. Neurologically, no new symptoms. Psych, no anxiety, no depression. Endocrine portillo, does have history of diabetes mellitus. The patient was kind of sedated post stent placement and history is taken from the chart. PAST MEDICAL HISTORY: Negative for smoking, drinking, or any drug abuse. She does have a cardiac history of hypercholesterolemia, hypertension, known pacemaker. Has no pulmonary disease. Neurologically, she suffers from migraines. In the past, she does not have any kidney problems. She does have diabetes type 2. No bleeding problem. Had history of colon cancer and no skin problems. Suffers musculoskeletal problems with osteoarthritis and anesthesia. History of malignant hyperthermia. ALLERGIES: ADVERSE REACTIONS TO CIPRO AND SEA FOOD. PHYSICAL EXAMINATION: GENERAL: She appears very sick and pale. VITAL SIGNS: Her temperature was 100.4 constantly, and her blood pressure 146/59, pulse of 78 when she was seen, respirations are 20, saturation was 97%. She appeared very pale. HEENT: Head is atraumatic, normocephalic. Pupils are reacting to light. Icterus present. Tongue is moist. NECK: Supple. JVP is flat. Trachea is central. CHEST: Chest wall is symmetrical. No crackles or rales present. No wheezing. HEART: S1, S2 regular. No murmurs appreciated. ABDOMEN: She had right upper quadrant tenderness present. No guarding, no rigidity present. Bowel sounds are present. EXTREMITIES: Have no edema, clubbing, or cyanosis at this time; and there was no CVA tenderness present. LABORATORY DATA: Labs are noted. Labs show white count is 13.8, hemoglobin 8.2, hematocrit 24.6, platelet count is 119, bands are 26. Lymphocytes are 2, monocytes are 4. Sodium is 141, potassium is 4.4, chlorides are 111. CO2 is 18. Anion gap is 17. Creatinine is 2.4. Liver enzymes show total bilirubin is 4.2, AST is 202, ALT is 124, alk phos is 405. She had abdominal CT and pelvic CT which was done on 05/06/2017 shows interval placement of metallic stent in the CBD with persistent residual moderate dilatation of the CBD phase. of CBD limit is due to streak artifact from metallic stent and large pancreatic head with diffuse atrophy of body and tail concerning with the carcinoma of the head of the pancreas and biliary obstruction, and large nodular liver, solitary low density lesion in the spleen, not completely characterized on this examination, moderate cardiomegaly and small pericardial effusion. IMPRESSION AND PLAN: My impression is that this patient was having fevers with probably persistent dilatation of the common bile duct and probably ascending cholangitis with fever now with new stent, it may be competent but she has severe bandemia and low grade fever at this time, on Zosyn. So we will change the antibiotic to meropenem and give her one dose of Azactam today. Septic workup has been ordered and we will follow with GI as well as Renal and Primary. The patient does have cholangiocarcinoma with nodular liver cirrhosis and diabetes with increased liver enzymes. Prognosis remains guarded. Licha Owens MD
--- NOTE | 2017-05-08 09:37 | CP.PCM.PN ---
Subjective - Date & Time of Evaluation Date of Evaluation: 05/08/17 Time of Evaluation: 08:00 - Subjective Subjective: PGY4 GI Follow-up Pt seen and examined bedside Abd pain has improved since yesterday tolerating liquids (clears) Denies any fever, chills or diaphoresis ROS: 10 point ROS conducted, neg other than above Objective - Vital Signs/Intake and Output Vital Signs (last 24 hours): Temp Pulse Resp BP Pulse Ox 98.9 F 82 20 153/75 H 94 L 05/08/17 08:01 05/08/17 08:01 05/08/17 08:01 05/08/17 08:01 05/08/17 08:01 Intake and Output: 05/08/17 05/08/17 06:59 18:59 Intake Total 860 Balance 860 - Medications Medications: Current Medications Clopidogrel Bisulfate (Plavix) 75 mg PO DAILY [facility] Dextrose (Dextrose 50% Inj) 0 ml IV STAT PRN; Protocol PRN Reason: Hypoglycemia Protocol Dextrose (Glutose 15) 0 gm PO ONCE PRN; Protocol PRN Reason: Hypoglycemia Protocol Glucagon (Glucagen Diagnostic Kit) 0 mg IM STAT PRN; Protocol PRN Reason: Hypoglycemia Protocol Hydralazine HCl (Apresoline) 10 mg IVP Q6H PRN PRN Reason: Systolic Blood Pressure Last Admin: 05/07/17 05:36 Dose: 10 mg Hydromorphone HCl (Dilaudid) 2 mg IVP Q4H PRN PRN Reason: Pain, moderate (4-7) Last Admin: 05/07/17 20:56 Dose: 2 mg Dextrose/Sodium Chloride (Dextrose 5%/0.9% Ns 1000 Ml) 1,000 mls @ 75 mls/hr IV .[id number] [facility] Last Admin: 05/07/17 20:53 Dose: 75 mls/hr Dextrose (Dextrose 5% In Water 1000 Ml) 1,000 mls @ 0 mls/hr IV .Q0M PRN; Protocol; Per Protocol PRN Reason: Hypoglycemia Protocol Meropenem (Merrem Iv 1 Gm Premix) 50 mls @ 50 mls/hr IVPB Q12H [facility] PRN Reason: Protocol Last Admin: 05/08/17 05:15 Dose: 50 mls/hr Aztreonam 1 gm/ Sodium (Chloride) 100 mls @ 100 mls/hr IVPB Q12H [facility] PRN Reason: Protocol Insulin Human Regular (Novolin R) 0 unit SC ACHS [facility] PRN Reason: Protocol Last Admin: 05/08/17 07:57 Dose: Not Given Nebivolol (Bystolic) 2.5 mg PO DAILY [facility] Last Admin: 05/07/17 12:34 Dose: 2.5 mg Nifedipine (Procardia Xl) 120 mg PO DAILY [facility] Last Admin: 05/07/17 12:34 Dose: 120 mg Ondansetron HCl (Zofran Inj) 4 mg IVP Q6H PRN PRN Reason: Nausea/Vomiting Pantoprazole Sodium (Protonix Inj) 40 mg IVP DAILY [facility] Last Admin: 05/07/17 14:27 Dose: 40 mg Topiramate (Topamax) 50 mg PO BID [facility] Last Admin: 05/07/17 17:51 Dose: 50 mg - Labs Labs: 05/08/17 07:08 05/08/17 07:08 - Constitutional Appears: Well, No Acute Distress - Head Exam Head Exam: ATRAUMATIC, NORMOCEPHALIC - Eye Exam Eye Exam: Normal appearance - ENT Exam ENT Exam: Mucous Membranes Moist - Neck Exam Neck Exam: Normal Inspection - Respiratory Exam Respiratory Exam: Clear to Ausculation Bilateral, NORMAL BREATHING PATTERN. absent: Rales, Rhonchi, Wheezes, Respiratory Distress - Cardiovascular Exam Cardiovascular Exam: REGULAR RHYTHM, +S1, +S2 - GI/Abdominal Exam GI & Abdominal Exam: Soft, Tenderness (epigastric), Normal Bowel Sounds. absent : Guarding, Rigid - Extremities Exam Extremities Exam: absent: Joint Swelling, Pedal Edema
--- NOTE | 2017-05-08 09:47 | RAD ---
HISTORY: history of chf COMPARISON: 04/06/2017 FINDINGS: LUNGS: Patchy opacity at left base, possible lower lobe infiltrate. Followup advised. No other abnormal opacity elsewhere. PLEURA: No significant pleural effusion identified, no pneumothorax apparent. CARDIOVASCULAR: Normal. OSSEOUS STRUCTURES: Mild thoracic dextroscoliosis. VISUALIZED UPPER ABDOMEN: Normal. OTHER FINDINGS: None. IMPRESSION: Possible left lower lobe infiltrate. Followup advised.
--- NOTE | 2017-05-08 09:47 | CP.PCM.PN ---
Subjective - Date & Time of Evaluation Date of Evaluation: 05/08/17 Time of Evaluation: 09:41 - Subjective Subjective: Patient seen and examined. No acute events overnight, resting in bed comfortably. She endorses ongoing RUQ abdominal pain but otherwise denies nausea, vomiting, diarrhea, fever/chills. Tolerating PO liquids without difficulty. Review of vitals from today shows elevated BP. 12 point review of systems performed, negative aside from mentioned above. Objective - Vital Signs/Intake and Output Vital Signs (last 24 hours): Temp Pulse Resp BP Pulse Ox 98.9 F 82 20 153/75 H 94 L 05/08/17 08:01 05/08/17 08:01 05/08/17 08:01 05/08/17 08:01 05/08/17 08:01 Intake and Output: 05/08/17 05/08/17 06:59 18:59 Intake Total 860 Balance 860 - Medications Medications: Current Medications Clopidogrel Bisulfate (Plavix) 75 mg PO DAILY [facility] Dextrose (Dextrose 50% Inj) 0 ml IV STAT PRN; Protocol PRN Reason: Hypoglycemia Protocol Dextrose (Glutose 15) 0 gm PO ONCE PRN; Protocol PRN Reason: Hypoglycemia Protocol Glucagon (Glucagen Diagnostic Kit) 0 mg IM STAT PRN; Protocol PRN Reason: Hypoglycemia Protocol Hydralazine HCl (Apresoline) 10 mg IVP Q6H PRN PRN Reason: Systolic Blood Pressure Last Admin: 05/07/17 05:36 Dose: 10 mg Hydromorphone HCl (Dilaudid) 2 mg IVP Q4H PRN PRN Reason: Pain, moderate (4-7) Last Admin: 05/07/17 20:56 Dose: 2 mg Dextrose/Sodium Chloride (Dextrose 5%/0.9% Ns 1000 Ml) 1,000 mls @ 75 mls/hr IV .[id number] [facility] Last Admin: 05/07/17 20:53 Dose: 75 mls/hr Dextrose (Dextrose 5% In Water 1000 Ml) 1,000 mls @ 0 mls/hr IV .Q0M PRN; Protocol; Per Protocol PRN Reason: Hypoglycemia Protocol Meropenem (Merrem Iv 1 Gm Premix) 50 mls @ 50 mls/hr IVPB Q12H [facility] PRN Reason: Protocol Last Admin: 05/08/17 05:15 Dose: 50 mls/hr Aztreonam 1 gm/ Sodium (Chloride) 100 mls @ 100 mls/hr IVPB Q12H [facility] PRN Reason: Protocol Insulin Human Regular (Novolin R) 0 unit SC ACHS [facility] PRN Reason: Protocol Last Admin: 05/08/17 07:57 Dose: Not Given Nebivolol (Bystolic) 2.5 mg PO DAILY [facility] Last Admin: 05/07/17 12:34 Dose: 2.5 mg Nifedipine (Procardia Xl) 120 mg PO DAILY [facility] Last Admin: 05/07/17 12:34 Dose: 120 mg Ondansetron HCl (Zofran Inj) 4 mg IVP Q6H PRN PRN Reason: Nausea/Vomiting Pantoprazole Sodium (Protonix Inj) 40 mg IVP DAILY [facility] Last Admin: 05/07/17 14:27 Dose: 40 mg Topiramate (Topamax) 50 mg PO BID [facility] Last Admin: 05/07/17 17:51 Dose: 50 mg - Labs Labs: 05/08/17 07:08 05/08/17 07:08 - Constitutional Appears: Non-toxic, No Acute Distress - Head Exam Head Exam: NORMAL INSPECTION - Eye Exam Eye Exam: EOMI, Normal appearance - ENT Exam ENT Exam: Mucous Membranes Moist - Respiratory Exam Respiratory Exam: Clear to Ausculation Bilateral - Cardiovascular Exam Cardiovascular Exam: REGULAR RHYTHM, +S1, +S2 - GI/Abdominal Exam GI & Abdominal Exam: Soft, Tenderness, Normal Bowel Sounds Additional comments: RUQ tenderness to deep palpation, no rebound/guarding - Extremities Exam Extremities Exam: Normal Inspection - Skin Skin Exam: Dry, Intact, Normal Color, Warm Assessment and Plan - Assessment and Plan (Free Text) Assessment: CAD s/p stent on plavix HTN CKD Abdominal pain, jaundice, cholangitis - h/o cholangiocarcinoma s/p ERCP with biliary stent exchange ?PSC / cirrhosis Plan: - Advance to full liquid diet as tolerated - Continue with antibiotic therapy - blood and urine cultures both positive, awaiting sensitivities - LFTs trending down, continue to monitor - Follow up surgical recommendations - Will continue to monitor patient clinical course
[2017-05-08] MEDS ORDERED: Aztreonam 1 GM in Sodium Chloride 0.9% 100 ML IVPB SCH (10:00)
[2017-05-08] MEDS: NIFEdipine 60 mg ER Tab PO SCH (10:06)
[2017-05-08] MEDS: Dextrose 5%/0.9% NS 1,000 ML IV SCH (10:14)
--- NOTE | 2017-05-08 11:03 | CP.PCM.PN ---
Subjective - Date & Time of Evaluation Date of Evaluation: 05/08/17 Time of Evaluation: 10:58 - Subjective Subjective: seen and examined labs reviewed abd US and ct scan report noted blood and urine cx positive, noted daughter at bedside. pt c/o abdominal pain. poor oral intake more lethargic than usual. Objective - Vital Signs/Intake and Output Vital Signs (last 24 hours): Temp Pulse Resp BP Pulse Ox 98.9 F 82 20 153/75 H 94 L 05/08/17 08:01 05/08/17 08:01 05/08/17 08:01 05/08/17 08:01 05/08/17 08:01 Intake and Output: 05/08/17 05/08/17 06:59 18:59 Intake Total 860 Balance 860 - Medications Medications: Current Medications Clopidogrel Bisulfate (Plavix) 75 mg PO DAILY [facility] Dextrose (Dextrose 50% Inj) 0 ml IV STAT PRN; Protocol PRN Reason: Hypoglycemia Protocol Dextrose (Glutose 15) 0 gm PO ONCE PRN; Protocol PRN Reason: Hypoglycemia Protocol Glucagon (Glucagen Diagnostic Kit) 0 mg IM STAT PRN; Protocol PRN Reason: Hypoglycemia Protocol Hydralazine HCl (Apresoline) 10 mg IVP Q6H PRN PRN Reason: Systolic Blood Pressure Last Admin: 05/07/17 05:36 Dose: 10 mg Hydromorphone HCl (Dilaudid) 2 mg IVP Q4H PRN PRN Reason: Pain, moderate (4-7) Last Admin: 05/08/17 09:46 Dose: 2 mg Dextrose (Dextrose 5% In Water 1000 Ml) 1,000 mls @ 0 mls/hr IV .Q0M PRN; Protocol; Per Protocol PRN Reason: Hypoglycemia Protocol Meropenem (Merrem Iv 1 Gm Premix) 50 mls @ 50 mls/hr IVPB Q12H [facility] PRN Reason: Protocol Last Admin: 05/08/17 05:15 Dose: 50 mls/hr Aztreonam 1 gm/ Sodium (Chloride) 100 mls @ 100 mls/hr IVPB Q12H [facility] PRN Reason: Protocol Last Admin: 05/08/17 10:06 Dose: 100 mls/hr Insulin Human Regular (Novolin R) 0 unit SC ACHS [facility] PRN Reason: Protocol Last Admin: 05/08/17 07:57 Dose: Not Given Nebivolol (Bystolic) 2.5 mg PO DAILY [facility] Last Admin: 05/08/17 09:48 Dose: 2.5 mg Nifedipine (Procardia Xl) 120 mg PO DAILY [facility] Last Admin: 05/08/17 10:06 Dose: 120 mg Ondansetron HCl (Zofran Inj) 4 mg IVP Q6H PRN PRN Reason: Nausea/Vomiting Pantoprazole Sodium (Protonix Inj) 40 mg IVP DAILY [facility] Last Admin: 05/08/17 09:48 Dose: 40 mg Topiramate (Topamax) 50 mg PO BID [facility] Last Admin: 05/08/17 09:48 Dose: 50 mg - Labs Labs: 05/08/17 07:08 05/08/17 07:08 - Constitutional Appears: Older Than Stated Age, Cachectic, Chronically Ill - Head Exam Head Exam: NORMAL INSPECTION, NORMOCEPHALIC - Eye Exam Eye Exam: Normal appearance, PERRL - ENT Exam ENT Exam: Mucous Membranes Moist, Normal Exam - Neck Exam Neck Exam: Full ROM, Normal Inspection - Respiratory Exam Respiratory Exam: Decreased Breath Sounds (bases), NORMAL BREATHING PATTERN - Cardiovascular Exam Cardiovascular Exam: REGULAR RHYTHM, RRR - GI/Abdominal Exam GI & Abdominal Exam: Distended, Soft, Tenderness (deep palpation) - Extremities Exam Extremities Exam: Normal Inspection - Neurological Exam Neurological Exam: Alert, Awake - Psychiatric Exam Psychiatric exam: Normal Affect, Normal Mood - Skin Skin Exam: Dry, Intact Assessment and Plan (1) Bacteremia Status: Acute (2) Chronic kidney disease, stage IV (severe) Status: Acute (3) Elevated liver enzymes Status: Acute (4) Pancreatic cancer Status: Acute (5) Anemia Status: Acute (6) Urinary tract infection Status: Acute - Assessment and Plan (Free Text) Assessment: ckd 4 metabolic acidosis CAD s/p stent on plavix HTN possible cholangitis post ERCP s/p ERCP with biliary stent exchange UTI plan: change ivs to bicarb gtt antibiotics and ID management
[2017-05-08] MEDS: Sodium Bicarbonate 8.4% 150 MEQ in Dextrose 5% In Water 850 ML IV SCH (12:44)
--- NOTE | 2017-05-08 16:01 | CP.PCM.PN ---
Subjective - Date & Time of Evaluation Date of Evaluation: 05/08/17 Time of Evaluation: 07:25 - Subjective Subjective: Surgery Progress note. Dr. Hawley. Pt seen and examined at bedside. No Acute events overnight. No N/V/D. Still complains of abdominal pain. Objective - Vital Signs/Intake and Output Vital Signs (last 24 hours): Temp Pulse Resp BP Pulse Ox 98.9 F 93 H 20 117/61 96 05/08/17 08:01 05/08/17 13:11 05/08/17 08:01 05/08/17 11:44 05/08/17 13:11 Intake and Output: 05/08/17 05/08/17 06:59 18:59 Intake Total 860 Balance 860 - Medications Medications: Current Medications Clopidogrel Bisulfate (Plavix) 75 mg PO DAILY [facility] Dextrose (Dextrose 50% Inj) 0 ml IV STAT PRN; Protocol PRN Reason: Hypoglycemia Protocol Dextrose (Glutose 15) 0 gm PO ONCE PRN; Protocol PRN Reason: Hypoglycemia Protocol Glucagon (Glucagen Diagnostic Kit) 0 mg IM STAT PRN; Protocol PRN Reason: Hypoglycemia Protocol Hydralazine HCl (Apresoline) 10 mg IVP Q6H PRN PRN Reason: Systolic Blood Pressure Last Admin: 05/07/17 05:36 Dose: 10 mg Hydromorphone HCl (Dilaudid) 2 mg IVP Q4H PRN PRN Reason: Pain, moderate (4-7) Last Admin: 05/08/17 09:46 Dose: 2 mg Dextrose (Dextrose 5% In Water 1000 Ml) 1,000 mls @ 0 mls/hr IV .Q0M PRN; Protocol; Per Protocol PRN Reason: Hypoglycemia Protocol Meropenem (Merrem Iv 1 Gm Premix) 50 mls @ 50 mls/hr IVPB Q12H [facility] PRN Reason: Protocol Last Admin: 05/08/17 05:15 Dose: 50 mls/hr Sodium Bicarbonate 150 meq/ (Dextrose) 1,000 mls @ 60 mls/hr IV .[id number] [facility] Last Admin: 05/08/17 12:44 Dose: 60 mls/hr Aztreonam 1 gm/ Sodium (Chloride) 100 mls @ 100 mls/hr IVPB Q12H [facility] PRN Reason: Protocol Insulin Human Regular (Novolin R) 0 unit SC ACHS [facility] PRN Reason: Protocol Last Admin: 05/08/17 12:58 Dose: Not Given Nebivolol (Bystolic) 2.5 mg PO DAILY [facility] Last Admin: 05/08/17 09:48 Dose: 2.5 mg Nifedipine (Procardia Xl) 120 mg PO DAILY [facility] Last Admin: 05/08/17 10:06 Dose: 120 mg Ondansetron HCl (Zofran Inj) 4 mg IVP Q6H PRN PRN Reason: Nausea/Vomiting Pantoprazole Sodium (Protonix Inj) 40 mg IVP DAILY [facility] Last Admin: 05/08/17 09:48 Dose: 40 mg Topiramate (Topamax) 50 mg PO BID [facility] Last Admin: 05/08/17 09:48 Dose: 50 mg - Labs Labs: 05/08/17 07:08 05/08/17 07:08 - Constitutional Appears: Well, Non-toxic, No Acute Distress - Head Exam Head Exam: ATRAUMATIC, NORMAL INSPECTION, NORMOCEPHALIC - Eye Exam Eye Exam: EOMI - ENT Exam ENT Exam: Mucous Membranes Moist - Respiratory Exam Respiratory Exam: NORMAL BREATHING PATTERN. absent: Accessory Muscle Use, Respiratory Distress - Cardiovascular Exam Cardiovascular Exam: RRR. absent: JVD - GI/Abdominal Exam Additional comments: Soft, non-distended. Mild tenderness RUQ and epigastric area - Extremities Exam Extremities Exam: Normal Inspection. absent: Calf Tenderness - Neurological Exam Neurological Exam: Alert, Awake, Oriented x3 - Psychiatric Exam Psychiatric exam: Normal Affect, Normal Mood - Skin Skin Exam: Dry, Intact, Normal Color, Warm Assessment and Plan - Assessment and Plan (Free Text) Assessment: 76yo F with cholangiocarcinoma. Scheduled for surgery with Dr. Hawley on May 18; Here with abdominal pain Plan: - No acute surgical intervention during this visit. - Surgical intervention planned for May 18 as out-patient - cleared for discharge from surgical standpoint. - continue mgmt for UTI as per primary team - f/u GI recs Further recs as per Dr. Marleen Clark PGY1 surgery pager: [phone]
--- NOTE | 2017-05-08 16:02 | CP.PCM.PN ---
<Ana Rodriguez - Last Filed: 05/08/17 16:00> Subjective - Date & Time of Evaluation Date of Evaluation: 05/08/17 Time of Evaluation: 16:00 - Subjective Subjective: Progress Note for Dr. Hart Patient seen and examined at bedside. Patient admits to chest tightness. Patient states she feels difficulty breathing but feels that it is better than yesterday. Lasix were ordered, chest xray ordered, patient is fluid overloaded. Patient's family and patient were concerned for pruritis, it was explained that the pruritis was likely due to the bilirubin being elevated. Objective - Vital Signs/Intake and Output Vital Signs (last 24 hours): Temp Pulse Resp BP Pulse Ox 98.9 F 93 H 20 117/61 96 05/08/17 08:01 05/08/17 13:11 05/08/17 08:01 05/08/17 11:44 05/08/17 13:11 Intake and Output: 05/08/17 05/08/17 06:59 18:59 Intake Total 860 Balance 860 - Medications Medications: Current Medications Clopidogrel Bisulfate (Plavix) 75 mg PO DAILY [facility] Dextrose (Dextrose 50% Inj) 0 ml IV STAT PRN; Protocol PRN Reason: Hypoglycemia Protocol Dextrose (Glutose 15) 0 gm PO ONCE PRN; Protocol PRN Reason: Hypoglycemia Protocol Glucagon (Glucagen Diagnostic Kit) 0 mg IM STAT PRN; Protocol PRN Reason: Hypoglycemia Protocol Hydralazine HCl (Apresoline) 10 mg IVP Q6H PRN PRN Reason: Systolic Blood Pressure Last Admin: 05/07/17 05:36 Dose: 10 mg Dextrose (Dextrose 5% In Water 1000 Ml) 1,000 mls @ 0 mls/hr IV .Q0M PRN; Protocol; Per Protocol PRN Reason: Hypoglycemia Protocol Meropenem (Merrem Iv 1 Gm Premix) 50 mls @ 50 mls/hr IVPB Q12H [facility]ESSICA PRN Reason: Protocol Last Admin: 05/08/17 05:15 Dose: 50 mls/hr Sodium Bicarbonate 150 meq/ (Dextrose) 1,000 mls @ 60 mls/hr IV .[id number] [facility] Last Admin: 05/08/17 12:44 Dose: 60 mls/hr Aztreonam 1 gm/ Sodium (Chloride) 100 mls @ 100 mls/hr IVPB Q12H [facility] PRN Reason: Protocol Insulin Human Regular (Novolin R) 0 unit SC ACHS JESSICA PRN Reason: Protocol Last Admin: 05/08/17 12:58 Dose: Not Given Morphine Sulfate (Morphine) 2 mg IVP Q4 PRN PRN Reason: Pain, moderate (4-7) Nebivolol (Bystolic) 2.5 mg PO DAILY [facility] Last Admin: 05/08/17 09:48 Dose: 2.5 mg Nifedipine (Procardia Xl) 120 mg PO DAILY [facility] Last Admin: 05/08/17 10:06 Dose: 120 mg Ondansetron HCl (Zofran Inj) 4 mg IVP Q6H PRN PRN Reason: Nausea/Vomiting Pantoprazole Sodium (Protonix Inj) 40 mg IVP DAILY [facility] Last Admin: 05/08/17 09:48 Dose: 40 mg Topiramate (Topamax) 50 mg PO BID [facility] Last Admin: 05/08/17 09:48 Dose: 50 mg - Labs Labs: 05/08/17 07:08 05/08/17 07:08 - Constitutional Appears: No Acute Distress - Head Exam Head Exam: ATRAUMATIC, NORMAL INSPECTION, NORMOCEPHALIC - Eye Exam Eye Exam: EOMI, Normal appearance - ENT Exam ENT Exam: Mucous Membranes Moist, Normal Exam - Neck Exam Neck Exam: Normal Inspection. absent: Tenderness, Thyromegaly - Respiratory Exam Respiratory Exam: Rales Additional comments: Patient is saturating well on Nasal cannula but uses accessory muscle when getting up to sit or laying back down. - Cardiovascular Exam Cardiovascular Exam: +S1, +S2 - GI/Abdominal Exam GI & Abdominal Exam: Soft, Tenderness (RUQ and RLQ as well as mid epigastric. 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 Carter - help appreciated Surgery consulted - Dr. Hawley - hel appreciated - family states pt with OPDX surgery with Dr. Hawley GI consulted - Dr. Bills s/p ERCP with sphincterotomy, dilation and biliary stent placement on 04/04/1705/07 biliary stent removal and of insertion of new plastic stent Ct A/P (05/06/17): Metallic stent in CBD, with persistent residual moderate dilatation of CBD. Enlarged panc head w diffuse atrphty of body/tail concerning for carcinoma with biliary obstruction. Enlarged nodular liver. Solitary lesion in spleen no completely characterized on exam. CT Pancreas protocol scan (04/05/17) - Atrophy of the pancreatic body and tail with prominence of the pancreatic head, lesion surrounding/adjacent to the distal common duct cannot be excluded, endoscopic ultrasound may be helpful for further evaluation; enlarged cirrhotic liver with fatty infiltration; cholecystectomy; pneumobilia with biliary stent; inflammation and edema in the mary hepatis. Further recs per attending evaluation as per surgical team CT head/chest/neck (04/05/17) unremarkable for metastatic disease though studies are limited in the absence of IV contrast 2/2 CKD with JADE MRCP (03/31/17): showed moderately to markedly dilated proximal common bile duct with large filling defect noted in the distal common bile duct, which could represent multiple choledocholithiasis (differential consideration includes less likely distal CBD neoplasm or stricture). Also noted [id number] intrahepatic biliary ductal dilatation, cirrhosis with findings suggestive of portal hypertension including splenomegaly and trace ascites, and 6.3 millimeter cyst at the pancreatic head. - Common bile duct, stricture biopsy: Invasive adenocarcinoma, moderately differentiated Blood cultures positve for Gram neg Rods AST/ALT 230/78, Alk Phos 438 on admission - elevated over last admission, but normalized by discharge CA 19-9 level: [address] Owens: Merrem 1 gm Q12H Aztreonam 1gm IVPB Q12H Hypertensive urgency Markedly elevated at admission; large pain component * Bystolic and nifedipine XL continued (home meds) * Hydralazine 10mg IV Q6H PRN for SBP > 160 Lipid panel noted from prior admission: Tri, Chol: 186, LDL: 97, HDL: 37 UTI, hematuria Pt denies dysuria, polyuria UA (05/06/17): mod bacteria, 2+ LE, 37 WBC Urine Cx Positive for Gram Neg Rods, E. coli Zosyn 2.25 gm IV Q6H for empiric coverage Diastolic CHF (04/17/17): EF 55-60%, mod diastolic dysfxn. Moderate Pulm Htn. Trace pericardial effusion. Procardia XL 120mg PO daily, Bystolic 2.5 mg PO daily. CAD Plavix 75mg PO Daily CKD, Stage 4 Nephrology consult: Dr. Juárez -Not on dialysis at this time -UA shows protein -Baseline creatine 1-1.5, though on recent admission 2.2 -D5/NS @ 75cc/hr + NaBicarb 650mg PO TID -F/u Urine Sodium, Electrolytes, studies Metabolic Acidosis ABG: ph 7.27, CO2 17 -D5/NS @ 75cc/hr + NaBicarb 650mg PO TID Proteinuria 3+ protein in Urine Monitor Per Dr. Juárez, 24 hour urine collection ordered lasix was given due to fluid overload Anemia of chronic disease Baseline hemoglobin 10 - Admission 8.8 Last admission iron studies: * Retic count 1.5, Iron 23, TIBC 259, % Saturation 9, Ferritin 103 Monitor AM labs Diabetes Mellitus * Accuchecks * Hypoglycemia protocol * A1C- 5.1 * Hold home metformin due to elevated Cr * Januvia 50mg PO Daily * ISS- low Prophylactic measure * GI PPX: Protonix 40mg IV daily * DVT PPX: SCDs, Lovenox 30mg SC Daily Discussed with Dr. Hailey Rodriguez, DO PGY1 <Kvng Hart - Last Filed: 05/09/17 16:49> Objective - Vital Signs/Intake and Output Vital Signs (last 24 hours): Temp Pulse Resp BP Pulse Ox 98.6 F 68 20 130/58 L 94 L 05/09/17 15:46 05/09/17 15:46 05/09/17 15:46 05/09/17 15:46 05/09/17 15:46 Intake and Output: 05/09/17 05/09/17 06:59 18:59 Intake Total 980 Output Total 400 Balance 580 - Medications Medications: Current Medications Clopidogrel Bisulfate (Plavix) 75 mg PO DAILY [facility] Dextrose (Dextrose 50% Inj) 0 ml IV STAT PRN; Protocol PRN Reason: Hypoglycemia Protocol Dextrose (Glutose 15) 0 gm PO ONCE PRN; Protocol PRN Reason: Hypoglycemia Protocol Glucagon (Glucagen Diagnostic Kit) 0 mg IM STAT PRN; Protocol PRN Reason: Hypoglycemia Protocol Hydralazine HCl (Apresoline) 10 mg IVP Q6H PRN PRN Reason: Systolic Blood Pressure Last Admin: 05/07/17 05:36 Dose: 10 mg Dextrose (Dextrose 5% In Water 1000 Ml) 1,000 mls @ 0 mls/hr IV .Q0M PRN; Protocol; Per Protocol PRN Reason: Hypoglycemia Protocol Meropenem (Merrem Iv 1 Gm Premix) 50 mls @ 50 mls/hr IVPB Q12H [facility] PRN Reason: Protocol Last Admin: 05/09/17 05:58 Dose: 50 mls/hr Sodium Bicarbonate 150 meq/ (Dextrose) 1,000 mls @ 60 mls/hr IV .[id number] [facility] Last Admin: 05/08/17 12:44 Dose: 60 mls/hr Aztreonam 1 gm/ Sodium (Chloride) 100 mls @ 100 mls/hr IVPB Q12H [facility] PRN Reason: Protocol Last Admin: 05/09/17 09:42 Dose: 100 mls/hr Insulin Human Regular (Novolin R) 0 unit SC ACHS [facility] PRN Reason: Protocol Last Admin: 05/09/17 12:10 Dose: 1 unit Morphine Sulfate (Morphine) 4 mg IVP Q4 PRN PRN Reason: Pain, moderate (4-7) Last Admin: 05/09/17 12:05 Dose: 4 mg Nebivolol (Bystolic) 2.5 mg PO DAILY [facility] Last Admin: 05/09/17 09:43 Dose: 2.5 mg Nifedipine (Procardia Xl) 120 mg PO DAILY [facility] Last Admin: 05/09/17 09:42 Dose: 120 mg Ondansetron HCl (Zofran Inj) 4 mg IVP Q6H PRN PRN Reason: Nausea/Vomiting Pantoprazole Sodium (Protonix Inj) 40 mg IVP DAILY [facility] Last Admin: 05/09/17 09:43 Dose: 40 mg Topiramate (Topamax) 50 mg PO BID [facility] Last Admin: 05/09/17 09:43 Dose: 50 mg - Labs Labs: 05/09/17 07:58 05/09/17 07:58 Attending/Attestation - Attestation I have personally seen and examined this patient.: Yes I have fully participated in the care of the patient.: Yes I have reviewed all pertinent clinical information, including history, physical exam and plan: Yes Notes (Text): Seen and examined lying bed comfortable.c/o pruritus,started before admission.likely due to bilirubin discussed with patient's daughter and granddaughter at bedside.Explained about bacteremia 1.Gram negative bacteremia 2.Leukocytosis with high bands 3Cholangiocarcinoma ,s/p stent change for obstructive jaundice and transaminitis 4.Chronic renal failure stage 4 5.diabetes mellitus 6.hypertension 7.Diastolic heart failure d/w Dr Owens continue Azactam and Merrem patient will need weeks of antibiotics.has midline.we will follow with ID and surgery d/w The resident. i agree with the resident's assessment an dthe plan
--- NOTE | 2017-05-08 18:00 | CP.PCM.PN ---
Subjective - Date & Time of Evaluation Date of Evaluation: 05/08/17 Time of Evaluation: 15:00 - Subjective Subjective: Appears comfortable, family at bedside Objective - Vital Signs/Intake and Output Vital Signs (last 24 hours): Temp Pulse Resp BP Pulse Ox 98.5 F 72 20 127/62 988 H 05/08/17 16:57 05/08/17 16:57 05/08/17 16:57 05/08/17 16:57 05/08/17 16:57 Intake and Output: 05/08/17 05/08/17 06:59 18:59 Intake Total 860 1015 Balance 860 1015 - Medications Medications: Current Medications Clopidogrel Bisulfate (Plavix) 75 mg PO DAILY [facility] Dextrose (Dextrose 50% Inj) 0 ml IV STAT PRN; Protocol PRN Reason: Hypoglycemia Protocol Dextrose (Glutose 15) 0 gm PO ONCE PRN; Protocol PRN Reason: Hypoglycemia Protocol Glucagon (Glucagen Diagnostic Kit) 0 mg IM STAT PRN; Protocol PRN Reason: Hypoglycemia Protocol Hydralazine HCl (Apresoline) 10 mg IVP Q6H PRN PRN Reason: Systolic Blood Pressure Last Admin: 05/07/17 05:36 Dose: 10 mg Dextrose (Dextrose 5% In Water 1000 Ml) 1,000 mls @ 0 mls/hr IV .Q0M PRN; Protocol; Per Protocol PRN Reason: Hypoglycemia Protocol Meropenem (Merrem Iv 1 Gm Premix) 50 mls @ 50 mls/hr IVPB Q12H [facility] PRN Reason: Protocol Last Admin: 05/08/17 17:32 Dose: 50 mls/hr Sodium Bicarbonate 150 meq/ (Dextrose) 1,000 mls @ 60 mls/hr IV .[id number] [facility] Last Admin: 05/08/17 12:44 Dose: 60 mls/hr Aztreonam 1 gm/ Sodium (Chloride) 100 mls @ 100 mls/hr IVPB Q12H [facility] PRN Reason: Protocol Insulin Human Regular (Novolin R) 0 unit SC ACHS [facility] PRN Reason: Protocol Last Admin: 05/08/17 16:58 Dose: Not Given Morphine Sulfate (Morphine) 2 mg IVP Q4 PRN PRN Reason: Pain, moderate (4-7) Nebivolol (Bystolic) 2.5 mg PO DAILY [facility] Last Admin: 05/08/17 09:48 Dose: 2.5 mg Nifedipine (Procardia Xl) 120 mg PO DAILY [facility] Last Admin: 05/08/17 10:06 Dose: 120 mg Ondansetron HCl (Zofran Inj) 4 mg IVP Q6H PRN PRN Reason: Nausea/Vomiting Pantoprazole Sodium (Protonix Inj) 40 mg IVP DAILY [facility] Last Admin: 05/08/17 09:48 Dose: 40 mg Topiramate (Topamax) 50 mg PO BID [facility] Last Admin: 05/08/17 17:32 Dose: 50 mg - Labs Labs: 05/08/17 07:08 05/08/17 07:08 - Head Exam Head Exam: ATRAUMATIC - Eye Exam Eye Exam: Scleral icterus - ENT Exam ENT Exam: Mucous Membranes Dry - Respiratory Exam Respiratory Exam: NORMAL BREATHING PATTERN - Cardiovascular Exam Cardiovascular Exam: +S1, +S2 - GI/Abdominal Exam GI & Abdominal Exam: Normal Bowel Sounds Assessment and Plan (1) Anemia Assessment & Plan: chronic disease Status: Acute (2) Thrombocytopenia Assessment & Plan: liver disease likely exacerbated by cholangitis Status: Acute (3) Cholangiocarcinoma Assessment & Plan: outpatient surgery Status: Acute
[2017-05-08] MEDS: Aztreonam 1 GM in Sodium Chloride 0.9% 100 ML IVPB SCH (21:50)
--- NOTE | 2017-05-08 23:07 | CP.PCM.PN ---
Subjective - Date & Time of Evaluation Date of Evaluation: 05/08/17 Time of Evaluation: 02:20 - Subjective Subjective: dictated Objective - Vital Signs/Intake and Output Vital Signs (last 24 hours): Temp Pulse Resp BP Pulse Ox 98.5 F 72 20 127/62 988 H 05/08/17 16:57 05/08/17 16:57 05/08/17 16:57 05/08/17 16:57 05/08/17 16:57 Intake and Output: 05/08/17 05/09/17 18:59 06:59 Intake Total 1015 Balance 1015 - Medications Medications: Current Medications Clopidogrel Bisulfate (Plavix) 75 mg PO DAILY [facility] Dextrose (Dextrose 50% Inj) 0 ml IV STAT PRN; Protocol PRN Reason: Hypoglycemia Protocol Dextrose (Glutose 15) 0 gm PO ONCE PRN; Protocol PRN Reason: Hypoglycemia Protocol Glucagon (Glucagen Diagnostic Kit) 0 mg IM STAT PRN; Protocol PRN Reason: Hypoglycemia Protocol Hydralazine HCl (Apresoline) 10 mg IVP Q6H PRN PRN Reason: Systolic Blood Pressure Last Admin: 05/07/17 05:36 Dose: 10 mg Dextrose (Dextrose 5% In Water 1000 Ml) 1,000 mls @ 0 mls/hr IV .Q0M PRN; Protocol; Per Protocol PRN Reason: Hypoglycemia Protocol Meropenem (Merrem Iv 1 Gm Premix) 50 mls @ 50 mls/hr IVPB Q12H [facility] PRN Reason: Protocol Last Admin: 05/08/17 17:32 Dose: 50 mls/hr Sodium Bicarbonate 150 meq/ (Dextrose) 1,000 mls @ 60 mls/hr IV .[id number] [facility] Last Admin: 05/08/17 12:44 Dose: 60 mls/hr Aztreonam 1 gm/ Sodium (Chloride) 100 mls @ 100 mls/hr IVPB Q12H [facility] PRN Reason: Protocol Last Admin: 05/08/17 21:50 Dose: 100 mls/hr Insulin Human Regular (Novolin R) 0 unit SC ACHS [facility] PRN Reason: Protocol Last Admin: 05/08/17 21:46 Dose: Not Given Morphine Sulfate (Morphine) 2 mg IVP Q4 PRN PRN Reason: Pain, moderate (4-7) Nebivolol (Bystolic) 2.5 mg PO DAILY [facility] Last Admin: 05/08/17 09:48 Dose: 2.5 mg Nifedipine (Procardia Xl) 120 mg PO DAILY [facility] Last Admin: 05/08/17 10:06 Dose: 120 mg Ondansetron HCl (Zofran Inj) 4 mg IVP Q6H PRN PRN Reason: Nausea/Vomiting Pantoprazole Sodium (Protonix Inj) 40 mg IVP DAILY [facility] Last Admin: 05/08/17 09:48 Dose: 40 mg Topiramate (Topamax) 50 mg PO BID [facility] Last Admin: 05/08/17 17:32 Dose: 50 mg - Labs Labs: 05/08/17 07:08 05/08/17 07:08
--- NOTE | 2017-05-09 03:48 | PN ---
DATE: 05/08/2017 SUBJECTIVE: The patient was seen today. She was feeling slightly better. The nurse called me in the morning, there were positive blood cultures. PHYSICAL EXAMINATION: VITAL SIGNS: T-max was 98.3, pulse of 93, blood pressure 150/67, respirations are 20. HEENT: Head is atraumatic, normocephalic. Pallor present. Tongue was moist. NECK: Supple. LUNGS: Clear. HEART: S1 and S2 is regular. ABDOMEN: Right upper quadrant tenderness present. No guarding, no rigidity present. EXTREMITIES: No edema. She had Venodyne boots present. LABORATORY DATA: White count is 8.9, hemoglobin 8, hematocrit is 23.2, platelet count is 100. Sodium is 141, potassium 3.9, chloride of 114, carbon dioxide was 15, BUN 30, creatinine 2.6. Cultures came and blood cultures positive for Gram negative. Urine culture is E.coli, ESBL negative. She was continued on meropenem, and we continued Azactam at this time as she still has bandemia. She probably had ascending cholangitis. Now she is status post stenting and has UTI and has cholangiocarcinoma, and we will follow. She is diabetic. I am waiting for the ID and sensitivity in the blood and also for echocardiogram, and she will need IV antibiotics to clear the bacteremia. Licha Owens MD
[2017-05-09] MEDS: Meropenem IV 1 gm in NS 50 ML IVPB SCH ×2 (05:58→18:13)
[2017-05-09] MEDS: (Novolin R) Insulin Human Regular 100 units/ml vial SC SCH ×4 (07:31→21:27)
[2017-05-09] MEDS ORDERED: Morphine 4 MG/ML VIAL IVP STA (07:31)
--- NOTE | 2017-05-09 07:39 | CP.PCM.PN ---
<Ana Rodriguez - Last Filed: 05/09/17 12:45> Subjective - Date & Time of Evaluation Date of Evaluation: 05/09/17 Time of Evaluation: 07:39 - Subjective Subjective: Progress Note for Dr. Hart Patient seen and examined at bedside. Patient reported not sleeping well overnight due to not tolerating pain. dose adjusted. No acute events overnight. Patient denies fever, chills, nausea, vomiting. Discussed with daughter Sarah about importance of discussing code status. Objective - Vital Signs/Intake and Output Vital Signs (last 24 hours): Temp Pulse Resp BP Pulse Ox 99.5 F 113 H 26 H 143/74 95 05/09/17 00:00 05/09/17 00:00 05/09/17 00:00 05/09/17 00:00 05/09/17 00:00 - Medications Medications: Current Medications Clopidogrel Bisulfate (Plavix) 75 mg PO DAILY [facility] Dextrose (Dextrose 50% Inj) 0 ml IV STAT PRN; Protocol PRN Reason: Hypoglycemia Protocol Dextrose (Glutose 15) 0 gm PO ONCE PRN; Protocol PRN Reason: Hypoglycemia Protocol Glucagon (Glucagen Diagnostic Kit) 0 mg IM STAT PRN; Protocol PRN Reason: Hypoglycemia Protocol Hydralazine HCl (Apresoline) 10 mg IVP Q6H PRN PRN Reason: Systolic Blood Pressure Last Admin: 05/07/17 05:36 Dose: 10 mg Dextrose (Dextrose 5% In Water 1000 Ml) 1,000 mls @ 0 mls/hr IV .Q0M PRN; Protocol; Per Protocol PRN Reason: Hypoglycemia Protocol Meropenem (Merrem Iv 1 Gm Premix) 50 mls @ 50 mls/hr IVPB Q12H [facility] PRN Reason: Protocol Last Admin: 05/09/17 05:58 Dose: 50 mls/hr Sodium Bicarbonate 150 meq/ (Dextrose) 1,000 mls @ 60 mls/hr IV .[id number] [facility] Last Admin: 05/08/17 12:44 Dose: 60 mls/hr Aztreonam 1 gm/ Sodium (Chloride) 100 mls @ 100 mls/hr IVPB Q12H [facility] PRN Reason: Protocol Last Admin: 05/08/17 21:50 Dose: 100 mls/hr Insulin Human Regular (Novolin R) 0 unit SC ACHS [facility] PRN Reason: Protocol Last Admin: 05/09/17 07:31 Dose: Not Given Morphine Sulfate (Morphine) 4 mg IVP Q4 PRN PRN Reason: Pain, moderate (4-7) Nebivolol (Bystolic) 2.5 mg PO DAILY [facility] Last Admin: 05/08/17 09:48 Dose: 2.5 mg Nifedipine (Procardia Xl) 120 mg PO DAILY [facility] Last Admin: 05/08/17 10:06 Dose: 120 mg Ondansetron HCl (Zofran Inj) 4 mg IVP Q6H PRN PRN Reason: Nausea/Vomiting Pantoprazole Sodium (Protonix Inj) 40 mg IVP DAILY [facility] Last Admin: 05/08/17 09:48 Dose: 40 mg Topiramate (Topamax) 50 mg PO BID [facility] Last Admin: 05/08/17 17:32 Dose: 50 mg - Labs Labs: 05/08/17 07:08 05/08/17 07:08 - Head Exam Head Exam: ATRAUMATIC, NORMAL INSPECTION, NORMOCEPHALIC - Eye Exam Eye Exam: EOMI, Normal appearance - ENT Exam ENT Exam: Mucous Membranes Moist, Normal Exam - Neck Exam Neck Exam: Full ROM, Normal Inspection. absent: Tenderness, Thyromegaly - Respiratory Exam Respiratory Exam: Clear to Ausculation Bilateral, NORMAL BREATHING PATTERN. absent: Accessory Muscle Use, Chest Wall Tenderness - Cardiovascular Exam Cardiovascular Exam: REGULAR RHYTHM, +S1, +S2 - GI/Abdominal Exam GI & Abdominal Exam: Soft, Tenderness (right upper quadrant and right lower quadrant pain on light and deep palpation) Additional comments: no rebound, rigidity, no guarding - Extremities Exam Extremities Exam: Full ROM, Normal Capillary Refill, Normal Inspection. absent : Pedal Edema, Tenderness - Back Exam Back Exam: Full ROM, NORMAL INSPECTION. 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 Carter - help appreciated Surgery consulted - Dr. Hawley - hel appreciated - [facility] states pt with OPDX surgery with Dr. Hawley GI consulted - Dr. Bills s/p ERCP with sphincterotomy, dilation and biliary stent placement on 04/04/1705/07 biliary stent removal and of insertion of new plastic stent Ct A/P (05/06/17): Metallic stent in CBD, with persistent residual moderate dilatation of CBD. Enlarged panc head w diffuse atrphty of body/tail concerning for carcinoma with biliary obstruction. Enlarged nodular liver. Solitary lesion in spleen no completely characterized on exam. CT Pancreas protocol scan (04/05/17) - Atrophy of the pancreatic body and tail with prominence of the pancreatic head, lesion surrounding/adjacent to the distal common duct cannot be excluded, endoscopic ultrasound may be helpful for further evaluation; enlarged cirrhotic liver with fatty infiltration; cholecystectomy; pneumobilia with biliary stent; inflammation and edema in the mary hepatis. Further recs per attending evaluation as per surgical team CT head/chest/neck (04/05/17) unremarkable for metastatic disease though studies are limited in the absence of IV contrast 2/2 CKD with JADE MRCP (03/31/17): showed moderately to markedly dilated proximal common bile duct with large filling defect noted in the distal common bile duct, which could represent multiple choledocholithiasis (differential consideration includes less likely distal CBD neoplasm or stricture). Also noted [id number] intrahepatic biliary ductal dilatation, cirrhosis with findings suggestive of portal hypertension including splenomegaly and trace ascites, and 6.3 millimeter cyst at the pancreatic head. - Common bile duct, stricture biopsy: Invasive adenocarcinoma, moderately differentiated Blood cultures positve for Gram neg Rods AST/ALT 230/78, Alk Phos 438 on admission - elevated over last admission, but normalized by discharge CA 19-9 level: [address] Owens: Merrem 1 gm Q12H Aztreonam 1gm IVPB Q12H Hypertensive urgency Markedly elevated at admission; large pain component * Bystolic and nifedipine XL continued (home meds) * Hydralazine 10mg IV Q6H PRN for SBP > 160 Lipid panel noted from prior admission: Tri, Chol: 186, LDL: 97, HDL: 37 UTI, hematuria Pt denies dysuria, polyuria UA (05/06/17): mod bacteria, 2+ LE, 37 WBC Urine Cx Positive for Gram Neg Rods, E. coli Zosyn 2.25 gm IV Q6H for empiric coverage Diastolic CHF (04/17/17): EF 55-60%, mod diastolic dysfxn. Moderate Pulm Htn. Trace pericardial effusion. Procardia XL 120mg PO daily, Bystolic 2.5 mg PO daily. CAD Plavix 75mg PO Daily CKD, Stage 4 Nephrology consult: Dr. Juárez -Not on dialysis at this time -UA shows protein -Baseline creatine 1-1.5, though on recent admission 2.2 -D5/NS @ 75cc/hr + NaBicarb 650mg PO TID -F/u Urine Sodium, Electrolytes, studies Metabolic Acidosis ABG: ph 7.27, CO2 17 -D5/NS @ 75cc/hr + NaBicarb 650mg PO TID Proteinuria 3+ protein in Urine Monitor Per Dr. Juárez, 24 hour urine collection ordered lasix was given due to fluid overload Anemia of chronic disease Baseline hemoglobin 10 - Admission 8.8 Last admission iron studies: * Retic count 1.5, Iron 23, TIBC 259, % Saturation 9, Ferritin 103 Monitor AM labs Diabetes Mellitus * Accuchecks * Hypoglycemia protocol * A1C- 5.1 * Hold home metformin due to elevated Cr * Januvia 50mg PO Daily * ISS- low Prophylactic measure * GI PPX: Protonix 40mg IV daily * DVT PPX: SCDs, Lovenox 30mg SC Daily Discussed with Dr. Hailey Perez Eng, DO PGY1 <Kvng Hart - Last Filed: 05/09/17 16:57> Objective - Vital Signs/Intake and Output Vital Signs (last 24 hours): Temp Pulse Resp BP Pulse Ox 98.6 F 68 20 130/58 L 94 L 05/09/17 15:46 05/09/17 15:46 05/09/17 15:46 05/09/17 15:46 05/09/17 15:46 Intake and Output: 05/09/17 05/09/17 06:59 18:59 Intake Total 980 Output Total 400 Balance 580 - Medications Medications: Current Medications Clopidogrel Bisulfate (Plavix) 75 mg PO DAILY [facility] Dextrose (Dextrose 50% Inj) 0 ml IV STAT PRN; Protocol PRN Reason: Hypoglycemia Protocol Dextrose (Glutose 15) 0 gm PO ONCE PRN; Protocol PRN Reason: Hypoglycemia Protocol Glucagon (Glucagen Diagnostic Kit) 0 mg IM STAT PRN; Protocol PRN Reason: Hypoglycemia Protocol Hydralazine HCl (Apresoline) 10 mg IVP Q6H PRN PRN Reason: Systolic Blood Pressure Last Admin: 05/07/17 05:36 Dose: 10 mg Dextrose (Dextrose 5% In Water 1000 Ml) 1,000 mls @ 0 mls/hr IV .Q0M PRN; Protocol; Per Protocol PRN Reason: Hypoglycemia Protocol Meropenem (Merrem Iv 1 Gm Premix) 50 mls @ 50 mls/hr IVPB Q12H [facility] PRN Reason: Protocol Last Admin: 05/09/17 05:58 Dose: 50 mls/hr Sodium Bicarbonate 150 meq/ (Dextrose) 1,000 mls @ 60 mls/hr IV .[id number] [facility] Last Admin: 05/08/17 12:44 Dose: 60 mls/hr Aztreonam 1 gm/ Sodium (Chloride) 100 mls @ 100 mls/hr IVPB Q12H [facility] PRN Reason: Protocol Last Admin: 05/09/17 09:42 Dose: 100 mls/hr Insulin Human Regular (Novolin R) 0 unit SC ACHS [facility] PRN Reason: Protocol Last Admin: 05/09/17 12:10 Dose: 1 unit Morphine Sulfate (Morphine) 4 mg IVP Q4 PRN PRN Reason: Pain, moderate (4-7) Last Admin: 05/09/17 12:05 Dose: 4 mg Nebivolol (Bystolic) 2.5 mg PO DAILY [facility] Last Admin: 05/09/17 09:43 Dose: 2.5 mg Nifedipine (Procardia Xl) 120 mg PO DAILY [facility] Last Admin: 05/09/17 09:42 Dose: 120 mg Ondansetron HCl (Zofran Inj) 4 mg IVP Q6H PRN PRN Reason: Nausea/Vomiting Pantoprazole Sodium (Protonix Inj) 40 mg IVP DAILY [facility] Last Admin: 05/09/17 09:43 Dose: 40 mg Topiramate (Topamax) 50 mg PO BID [facility] Last Admin: 05/09/17 09:43 Dose: 50 mg - Labs Labs: 05/09/17 07:58 05/09/17 07:58 Attending/Attestation - Attestation I have personally seen and examined this patient.: Yes I have fully participated in the care of the patient.: Yes I have reviewed all pertinent clinical information, including history, physical exam and plan: Yes Notes (Text): Patient was seen and examined.looks better today Lying comfortable. Has abdominal pain.abdomen is soft,mild tenderness,no guarding,no rigidity seen by surgery.planning for Pancreaticoduodenectomy on 05/18.we will follow ID and surgery.monitor creatinine and continue fluids as per nephrology Patient has bacteremia on antibiotics as per ID .started on azactam and merrem on 04/09/2017 1.Gram negative bacteremia 2.Leukocytosis with high bands 3Cholangiocarcinoma ,s/p stent change for obstructive jaundice and transaminitis 4.Chronic renal failure stage 4 5.diabetes mellitus 6.hypertension 7.Diastolic heart failure d/w daughter Sarah about advance directives. Undecided.Full code now. Patient aware of her Ca and participated in the conversation about resuscitation / advance directives monitor creatinine d/w the resident. I agree with the documentation of the resident's assessment and the plan
[2017-05-09 08:31] LABS: BASO % 0.3 % (0.0-2.0); EOS # 0.1 K/uL (0.0-0.7); EOS % 2.2 % (0.0-4.0); HEMOGLOBIN 8.9 g/dL (11.0-16.0); LYMPH # 0.6 K/uL (1.0-4.3); LYMPH % 10.9 % (20.0-40.0); MEAN CELL VOLUME 89.6 fL (81.0-99.0); MEAN CORPUSCULAR HEMOGLOBIN 30.7 pg (27.0-31.0); MEAN CORPUSCULAR HGB CONC 34.3 g/dL (33.0-37.0); MEAN PLATELET VOLUME 9.7 fL (7.2-11.7); MONO # 0.2 K/uL (0.0-0.8); MONO % 3.5 % (0.0-10.0); NEUT # 4.3 K/uL (1.8-7.0); NEUT % 83.1 % (50.0-75.0); NRBC % 0.1 % (0.0-2.0); RBC 2.89 Mil/uL (3.80-5.20); WHITE BLOOD COUNT 5.2 K/uL (4.8-10.8)
[2017-05-09 08:48] VITALS: RESP 20
[2017-05-09 09:04] LABS: ALB/GLOB RATIO 0.7 (1.0-2.1); ALBUMIN 2.7 g/dL (3.5-5.0); CALCIUM 8.2 mg/dl (8.6-10.4)
--- NOTE | 2017-05-09 09:08 | CP.PCM.PN ---
Subjective - Date & Time of Evaluation Date of Evaluation: 05/09/17 Time of Evaluation: 09:06 Objective - Vital Signs/Intake and Output Vital Signs (last 24 hours): Temp Pulse Resp BP Pulse Ox 98.5 F 86 20 156/54 H 95 05/09/17 07:25 05/09/17 07:25 05/09/17 07:25 05/09/17 07:25 05/09/17 07:25 - Medications Medications: Current Medications Clopidogrel Bisulfate (Plavix) 75 mg PO DAILY [facility] Dextrose (Dextrose 50% Inj) 0 ml IV STAT PRN; Protocol PRN Reason: Hypoglycemia Protocol Dextrose (Glutose 15) 0 gm PO ONCE PRN; Protocol PRN Reason: Hypoglycemia Protocol Glucagon (Glucagen Diagnostic Kit) 0 mg IM STAT PRN; Protocol PRN Reason: Hypoglycemia Protocol Hydralazine HCl (Apresoline) 10 mg IVP Q6H PRN PRN Reason: Systolic Blood Pressure Last Admin: 05/07/17 05:36 Dose: 10 mg Dextrose (Dextrose 5% In Water 1000 Ml) 1,000 mls @ 0 mls/hr IV .Q0M PRN; Protocol; Per Protocol PRN Reason: Hypoglycemia Protocol Meropenem (Merrem Iv 1 Gm Premix) 50 mls @ 50 mls/hr IVPB Q12H [facility] PRN Reason: Protocol Last Admin: 05/09/17 05:58 Dose: 50 mls/hr Sodium Bicarbonate 150 meq/ (Dextrose) 1,000 mls @ 60 mls/hr IV .[id number] [facility] Last Admin: 05/08/17 12:44 Dose: 60 mls/hr Aztreonam 1 gm/ Sodium (Chloride) 100 mls @ 100 mls/hr IVPB Q12H [facility] PRN Reason: Protocol Last Admin: 05/08/17 21:50 Dose: 100 mls/hr Insulin Human Regular (Novolin R) 0 unit SC ACHS [facility] PRN Reason: Protocol Last Admin: 05/09/17 07:31 Dose: Not Given Morphine Sulfate (Morphine) 4 mg IVP Q4 PRN PRN Reason: Pain, moderate (4-7) Nebivolol (Bystolic) 2.5 mg PO DAILY [facility] Last Admin: 05/08/17 09:48 Dose: 2.5 mg Nifedipine (Procardia Xl) 120 mg PO DAILY [facility] Last Admin: 05/08/17 10:06 Dose: 120 mg Ondansetron HCl (Zofran Inj) 4 mg IVP Q6H PRN PRN Reason: Nausea/Vomiting Pantoprazole Sodium (Protonix Inj) 40 mg IVP DAILY [facility] Last Admin: 05/08/17 09:48 Dose: 40 mg Topiramate (Topamax) 50 mg PO BID [facility] Last Admin: 05/08/17 17:32 Dose: 50 mg - Labs Labs: 05/09/17 07:58 05/09/17 07:58
[2017-05-09] MEDS: Aztreonam 1 GM in Sodium Chloride 0.9% 100 ML IVPB SCH ×2 (09:42→21:38)
[2017-05-09] MEDS: NIFEdipine 60 mg ER Tab PO SCH (09:42)
[2017-05-09] MEDS ORDERED: Potassium Chloride 20 mEq ER Tab PO ONE (10:33)
[2017-05-09] MEDS ORDERED: Potassium Chloride 20 mEq ER Tab PO SCH (10:45)
--- NOTE | 2017-05-09 11:32 | CP.PCM.PN ---
<Chaim Rueda - Last Filed: 05/09/17 13:07> Subjective - Date & Time of Evaluation Date of Evaluation: 05/09/17 Time of Evaluation: 08:30 - Subjective Subjective: PGY4 GI Follow-up Patient seen and examined. No acute events overnight, resting in bed comfortably. still endorses ongoing RUQ abdominal pain but otherwise denies nausea, vomiting , diarrhea, fever/chills. Tolerating PO liquids without difficulty. 12 point review of systems performed, negative aside from mentioned above. Objective - Vital Signs/Intake and Output Vital Signs (last 24 hours): Temp Pulse Resp BP Pulse Ox 98.5 F 86 20 156/54 H 95 05/09/17 07:25 05/09/17 07:25 05/09/17 07:25 05/09/17 07:25 05/09/17 07:25 - Medications Medications: Current Medications Clopidogrel Bisulfate (Plavix) 75 mg PO DAILY [facility] Dextrose (Dextrose 50% Inj) 0 ml IV STAT PRN; Protocol PRN Reason: Hypoglycemia Protocol Dextrose (Glutose 15) 0 gm PO ONCE PRN; Protocol PRN Reason: Hypoglycemia Protocol Glucagon (Glucagen Diagnostic Kit) 0 mg IM STAT PRN; Protocol PRN Reason: Hypoglycemia Protocol Hydralazine HCl (Apresoline) 10 mg IVP Q6H PRN PRN Reason: Systolic Blood Pressure Last Admin: 05/07/17 05:36 Dose: 10 mg Dextrose (Dextrose 5% In Water 1000 Ml) 1,000 mls @ 0 mls/hr IV .Q0M PRN; Protocol; Per Protocol PRN Reason: Hypoglycemia Protocol Meropenem (Merrem Iv 1 Gm Premix) 50 mls @ 50 mls/hr IVPB Q12H [facility] PRN Reason: Protocol Last Admin: 05/09/17 05:58 Dose: 50 mls/hr Sodium Bicarbonate 150 meq/ (Dextrose) 1,000 mls @ 60 mls/hr IV .[id number] [facility] Last Admin: 05/08/17 12:44 Dose: 60 mls/hr Aztreonam 1 gm/ Sodium (Chloride) 100 mls @ 100 mls/hr IVPB Q12H [facility] PRN Reason: Protocol Last Admin: 05/09/17 09:42 Dose: 100 mls/hr Potassium Chloride (Potassium Chloride 20 Meq/100 Ml) 20 meq in 100 mls @ 25 mls/hr IVPB Q2H [facility] Stop: 05/09/17 12:44 Insulin Human Regular (Novolin R) 0 unit SC ACHS [facility] PRN Reason: Protocol Last Admin: 05/09/17 07:31 Dose: Not Given Morphine Sulfate (Morphine) 4 mg IVP Q4 PRN PRN Reason: Pain, moderate (4-7) Nebivolol (Bystolic) 2.5 mg PO DAILY [facility] Last Admin: 05/09/17 09:43 Dose: 2.5 mg Nifedipine (Procardia Xl) 120 mg PO DAILY [facility] Last Admin: 05/09/17 09:42 Dose: 120 mg Ondansetron HCl (Zofran Inj) 4 mg IVP Q6H PRN PRN Reason: Nausea/Vomiting Pantoprazole Sodium (Protonix Inj) 40 mg IVP DAILY [facility] Last Admin: 05/09/17 09:43 Dose: 40 mg Topiramate (Topamax) 50 mg PO BID [facility] Last Admin: 05/09/17 09:43 Dose: 50 mg - Labs Labs: 05/09/17 07:58 05/09/17 07:58 - Constitutional Appears: Non-toxic, No Acute Distress - Head Exam Head Exam: ATRAUMATIC, NORMOCEPHALIC - Eye Exam Eye Exam: Normal appearance - ENT Exam ENT Exam: Mucous Membranes Moist, Normal Exam - Neck Exam Neck Exam: Normal Inspection - Respiratory Exam Respiratory Exam: Clear to Ausculation Bilateral, NORMAL BREATHING PATTERN. absent: Rales, Rhonchi, Wheezes, Respiratory Distress - Cardiovascular Exam Cardiovascular Exam: REGULAR RHYTHM, +S1, +S2 - GI/Abdominal Exam GI & Abdominal Exam: Soft, Tenderness (RUQ and epigastric area) - Extremities Exam Extremities Exam: absent: Joint Swelling, Pedal Edema - Neurological Exam Neurological Exam: Alert, Awake, Oriented x3 - Psychiatric Exam Psychiatric exam: Normal Affect, Normal Mood - Skin Skin Exam: Dry, Intact, Normal Color, Warm Assessment and Plan - Assessment and Plan (Free Text) Assessment: Patient is a 76yo female with PMHx significant for CAD (on plavix), HTN, CKD, osteoporosis who presented with abdominal pain and jaundice. S/P ERCP w/ plastic stent exchange and balloon sweep CAD s/p stent on plavix HTN CKD Abdominal pain, jaundice, cholangitis - h/o cholangiocarcinoma s/p ERCP with biliary stent exchange ?PSC / cirrhosis Plan: - Advance to full liquid diet as tolerated - Continue with antibiotic therapy - blood and urine cultures both positive w/ grm neg - LFTs trending down, continue to monitor - Follow up surgical recommendations - Will continue to monitor patient clinical course Will D/W Dr. Naidu <Singh Naidu - Last Filed: 05/09/17 16:12> Objective - Vital Signs/Intake and Output Vital Signs (last 24 hours): Temp Pulse Resp BP Pulse Ox 98.6 F 68 20 130/58 L 94 L 05/09/17 15:46 05/09/17 15:46 05/09/17 15:46 05/09/17 15:46 05/09/17 15:46 Intake and Output: 05/09/17 05/09/17 06:59 18:59 Intake Total 980 Output Total 400 Balance 580 - Medications Medications: Current Medications Clopidogrel Bisulfate (Plavix) 75 mg PO DAILY [facility] Dextrose (Dextrose 50% Inj) 0 ml IV STAT PRN; Protocol PRN Reason: Hypoglycemia Protocol Dextrose (Glutose 15) 0 gm PO ONCE PRN; Protocol PRN Reason: Hypoglycemia Protocol Glucagon (Glucagen Diagnostic Kit) 0 mg IM STAT PRN; Protocol PRN Reason: Hypoglycemia Protocol Hydralazine HCl (Apresoline) 10 mg IVP Q6H PRN PRN Reason: Systolic Blood Pressure Last Admin: 05/07/17 05:36 Dose: 10 mg Dextrose (Dextrose 5% In Water 1000 Ml) 1,000 mls @ 0 mls/hr IV .Q0M PRN; Protocol; Per Protocol PRN Reason: Hypoglycemia Protocol Meropenem (Merrem Iv 1 Gm Premix) 50 mls @ 50 mls/hr IVPB Q12H [facility] PRN Reason: Protocol Last Admin: 05/09/17 05:58 Dose: 50 mls/hr Sodium Bicarbonate 150 meq/ (Dextrose) 1,000 mls @ 60 mls/hr IV .[id number] [facility] Last Admin: 05/08/17 12:44 Dose: 60 mls/hr Aztreonam 1 gm/ Sodium (Chloride) 100 mls @ 100 mls/hr IVPB Q12H [facility] PRN Reason: Protocol Last Admin: 05/09/17 09:42 Dose: 100 mls/hr Insulin Human Regular (Novolin R) 0 unit SC ACHS [facility] PRN Reason: Protocol Last Admin: 05/09/17 12:10 Dose: 1 unit Morphine Sulfate (Morphine) 4 mg IVP Q4 PRN PRN Reason: Pain, moderate (4-7) Last Admin: 05/09/17 12:05 Dose: 4 mg Nebivolol (Bystolic) 2.5 mg PO DAILY [facility] Last Admin: 05/09/17 09:43 Dose: 2.5 mg Nifedipine (Procardia Xl) 120 mg PO DAILY [facility] Last Admin: 05/09/17 09:42 Dose: 120 mg Ondansetron HCl (Zofran Inj) 4 mg IVP Q6H PRN PRN Reason: Nausea/Vomiting Pantoprazole Sodium (Protonix Inj) 40 mg IVP DAILY [facility] Last Admin: 05/09/17 09:43 Dose: 40 mg Topiramate (Topamax) 50 mg PO BID [facility] Last Admin: 05/09/17 09:43 Dose: 50 mg - Labs Labs: 05/09/17 07:58 05/09/17 07:58 Attending/Attestation - Attestation I have personally seen and examined this patient.: Yes I have fully participated in the care of the patient.: Yes I have reviewed all pertinent clinical information, including history, physical exam and plan: Yes Notes (Text): 05/09/17 16:12 76 year old female with multiple medical problems including cirrhosis, cholangiocarcinoma admitted with cholangitis now s/p ercp with stent change. continue abx x 2 weeks. will sign off.
[2017-05-09] MEDS: Morphine 4 MG/ML VIAL IVP PRN (12:05)
--- NOTE | 2017-05-09 13:14 | CP.PCM.PN ---
Subjective - Date & Time of Evaluation Date of Evaluation: 05/09/17 Time of Evaluation: 13:11 - Subjective Subjective: still with abdominal pains trying fluid diet on bicarb gtt creat sl better; has known CKD on IV ABs for bacteremia, UTI Objective - Vital Signs/Intake and Output Vital Signs (last 24 hours): Temp Pulse Resp BP Pulse Ox 98.5 F 86 20 156/54 H 97 05/09/17 07:25 05/09/17 07:25 05/09/17 07:25 05/09/17 07:25 05/09/17 11:32 - Medications Medications: Current Medications Clopidogrel Bisulfate (Plavix) 75 mg PO DAILY [facility] Dextrose (Dextrose 50% Inj) 0 ml IV STAT PRN; Protocol PRN Reason: Hypoglycemia Protocol Dextrose (Glutose 15) 0 gm PO ONCE PRN; Protocol PRN Reason: Hypoglycemia Protocol Glucagon (Glucagen Diagnostic Kit) 0 mg IM STAT PRN; Protocol PRN Reason: Hypoglycemia Protocol Hydralazine HCl (Apresoline) 10 mg IVP Q6H PRN PRN Reason: Systolic Blood Pressure Last Admin: 05/07/17 05:36 Dose: 10 mg Dextrose (Dextrose 5% In Water 1000 Ml) 1,000 mls @ 0 mls/hr IV .Q0M PRN; Protocol; Per Protocol PRN Reason: Hypoglycemia Protocol Meropenem (Merrem Iv 1 Gm Premix) 50 mls @ 50 mls/hr IVPB Q12H [facility] PRN Reason: Protocol Last Admin: 05/09/17 05:58 Dose: 50 mls/hr Sodium Bicarbonate 150 meq/ (Dextrose) 1,000 mls @ 60 mls/hr IV .[id number] [facility] Last Admin: 05/08/17 12:44 Dose: 60 mls/hr Aztreonam 1 gm/ Sodium (Chloride) 100 mls @ 100 mls/hr IVPB Q12H [facility] PRN Reason: Protocol Last Admin: 05/09/17 09:42 Dose: 100 mls/hr Insulin Human Regular (Novolin R) 0 unit SC ACHS [facility] PRN Reason: Protocol Last Admin: 05/09/17 12:10 Dose: 1 unit Morphine Sulfate (Morphine) 4 mg IVP Q4 PRN PRN Reason: Pain, moderate (4-7) Last Admin: 05/09/17 12:05 Dose: 4 mg Nebivolol (Bystolic) 2.5 mg PO DAILY [facility] Last Admin: 05/09/17 09:43 Dose: 2.5 mg Nifedipine (Procardia Xl) 120 mg PO DAILY [facility] Last Admin: 05/09/17 09:42 Dose: 120 mg Ondansetron HCl (Zofran Inj) 4 mg IVP Q6H PRN PRN Reason: Nausea/Vomiting Pantoprazole Sodium (Protonix Inj) 40 mg IVP DAILY [facility] Last Admin: 05/09/17 09:43 Dose: 40 mg Topiramate (Topamax) 50 mg PO BID [facility] Last Admin: 05/09/17 09:43 Dose: 50 mg - Labs Labs: 05/09/17 07:58 05/09/17 07:58 - Constitutional Appears: In Acute Distress, Chronically Ill - Head Exam Head Exam: ATRAUMATIC, NORMAL INSPECTION - Eye Exam Eye Exam: EOMI, Scleral icterus - Respiratory Exam Respiratory Exam: Clear to Ausculation Bilateral, NORMAL BREATHING PATTERN - Cardiovascular Exam Cardiovascular Exam: REGULAR RHYTHM, +S1 - GI/Abdominal Exam GI & Abdominal Exam: Soft, Tenderness - Extremities Exam Extremities Exam: Normal Inspection. absent: Tenderness - Neurological Exam Neurological Exam: Awake, CN II-XII Intact - Skin Skin Exam: Dry, Warm Assessment and Plan (1) Chronic kidney disease, stage IV (severe) Status: Acute (2) Proteinuria Status: Acute (3) Biliary obstruction Status: Acute (4) Cholangiocarcinoma Status: Acute (5) HTN (hypertension) Status: Acute (6) Bacteremia Status: Acute - Assessment and Plan (Free Text) Plan: IV ABs bicarb gtt follow up chemistries
--- NOTE | 2017-05-09 13:18 | CP.PCM.PN ---
Subjective - Date & Time of Evaluation Date of Evaluation: 05/09/17 Time of Evaluation: 13:14 - Subjective Subjective: Pt s&e at bedside, NAD, NAEO, resting comfortably. The patient pain is improving , but still reports some mild epigastric tenderness. Denies n/v/f/c, chest pain , shortness of breath, diarrhea, consptipation. Objective - Vital Signs/Intake and Output Vital Signs (last 24 hours): Temp Pulse Resp BP Pulse Ox 98.5 F 86 20 156/54 H 97 05/09/17 07:25 05/09/17 07:25 05/09/17 07:25 05/09/17 07:25 05/09/17 11:32 - Medications Medications: Current Medications Clopidogrel Bisulfate (Plavix) 75 mg PO DAILY [facility] Dextrose (Dextrose 50% Inj) 0 ml IV STAT PRN; Protocol PRN Reason: Hypoglycemia Protocol Dextrose (Glutose 15) 0 gm PO ONCE PRN; Protocol PRN Reason: Hypoglycemia Protocol Glucagon (Glucagen Diagnostic Kit) 0 mg IM STAT PRN; Protocol PRN Reason: Hypoglycemia Protocol Hydralazine HCl (Apresoline) 10 mg IVP Q6H PRN PRN Reason: Systolic Blood Pressure Last Admin: 05/07/17 05:36 Dose: 10 mg Dextrose (Dextrose 5% In Water 1000 Ml) 1,000 mls @ 0 mls/hr IV .Q0M PRN; Protocol; Per Protocol PRN Reason: Hypoglycemia Protocol Meropenem (Merrem Iv 1 Gm Premix) 50 mls @ 50 mls/hr IVPB Q12H [facility] PRN Reason: Protocol Last Admin: 05/09/17 05:58 Dose: 50 mls/hr Sodium Bicarbonate 150 meq/ (Dextrose) 1,000 mls @ 60 mls/hr IV .[id number] [facility] Last Admin: 05/08/17 12:44 Dose: 60 mls/hr Aztreonam 1 gm/ Sodium (Chloride) 100 mls @ 100 mls/hr IVPB Q12H [facility] PRN Reason: Protocol Last Admin: 05/09/17 09:42 Dose: 100 mls/hr Insulin Human Regular (Novolin R) 0 unit SC ACHS [facility] PRN Reason: Protocol Last Admin: 05/09/17 12:10 Dose: 1 unit Morphine Sulfate (Morphine) 4 mg IVP Q4 PRN PRN Reason: Pain, moderate (4-7) Last Admin: 05/09/17 12:05 Dose: 4 mg Nebivolol (Bystolic) 2.5 mg PO DAILY [facility] Last Admin: 05/09/17 09:43 Dose: 2.5 mg Nifedipine (Procardia Xl) 120 mg PO DAILY [facility] Last Admin: 05/09/17 09:42 Dose: 120 mg Ondansetron HCl (Zofran Inj) 4 mg IVP Q6H PRN PRN Reason: Nausea/Vomiting Pantoprazole Sodium (Protonix Inj) 40 mg IVP DAILY [facility] Last Admin: 05/09/17 09:43 Dose: 40 mg Topiramate (Topamax) 50 mg PO BID [facility] Last Admin: 05/09/17 09:43 Dose: 50 mg - Labs Labs: 05/09/17 07:58 05/09/17 07:58 - Constitutional Appears: Well, Non-toxic, No Acute Distress - Head Exam Head Exam: ATRAUMATIC, NORMAL INSPECTION - ENT Exam ENT Exam: Mucous Membranes Moist - Respiratory Exam Respiratory Exam: NORMAL BREATHING PATTERN - GI/Abdominal Exam GI & Abdominal Exam: Soft, Tenderness, Normal Bowel Sounds. absent: Distended, Guarding, Rigid, Mass Assessment and Plan - Assessment and Plan (Free Text) Assessment: 76yo F w/ Pancreatic Adenocarcinoma Plan: -Plan for Pancreaticoduodenectomy on 05/18 -continue medicine recommendations -continue nephrology recommendations -continue pain control -mp further intervention from surgical team until planned procedure Jon Gutierrez, PGY-3
--- NOTE | 2017-05-09 13:50 | CP.PCM.PN ---
Subjective - Date & Time of Evaluation Date of Evaluation: 05/09/17 Time of Evaluation: 01:30 - Subjective Subjective: dictated Objective - Vital Signs/Intake and Output Vital Signs (last 24 hours): Temp Pulse Resp BP Pulse Ox 98.5 F 86 20 156/54 H 97 05/09/17 07:25 05/09/17 07:25 05/09/17 07:25 05/09/17 07:25 05/09/17 11:32 - Medications Medications: Current Medications Clopidogrel Bisulfate (Plavix) 75 mg PO DAILY [facility] Dextrose (Dextrose 50% Inj) 0 ml IV STAT PRN; Protocol PRN Reason: Hypoglycemia Protocol Dextrose (Glutose 15) 0 gm PO ONCE PRN; Protocol PRN Reason: Hypoglycemia Protocol Glucagon (Glucagen Diagnostic Kit) 0 mg IM STAT PRN; Protocol PRN Reason: Hypoglycemia Protocol Hydralazine HCl (Apresoline) 10 mg IVP Q6H PRN PRN Reason: Systolic Blood Pressure Last Admin: 05/07/17 05:36 Dose: 10 mg Dextrose (Dextrose 5% In Water 1000 Ml) 1,000 mls @ 0 mls/hr IV .Q0M PRN; Protocol; Per Protocol PRN Reason: Hypoglycemia Protocol Meropenem (Merrem Iv 1 Gm Premix) 50 mls @ 50 mls/hr IVPB Q12H [facility] PRN Reason: Protocol Last Admin: 05/09/17 05:58 Dose: 50 mls/hr Sodium Bicarbonate 150 meq/ (Dextrose) 1,000 mls @ 60 mls/hr IV .[id number] [facility] Last Admin: 05/08/17 12:44 Dose: 60 mls/hr Aztreonam 1 gm/ Sodium (Chloride) 100 mls @ 100 mls/hr IVPB Q12H [facility] PRN Reason: Protocol Last Admin: 05/09/17 09:42 Dose: 100 mls/hr Insulin Human Regular (Novolin R) 0 unit SC ACHS [facility] PRN Reason: Protocol Last Admin: 05/09/17 12:10 Dose: 1 unit Morphine Sulfate (Morphine) 4 mg IVP Q4 PRN PRN Reason: Pain, moderate (4-7) Last Admin: 05/09/17 12:05 Dose: 4 mg Nebivolol (Bystolic) 2.5 mg PO DAILY [facility] Last Admin: 05/09/17 09:43 Dose: 2.5 mg Nifedipine (Procardia Xl) 120 mg PO DAILY [facility] Last Admin: 05/09/17 09:42 Dose: 120 mg Ondansetron HCl (Zofran Inj) 4 mg IVP Q6H PRN PRN Reason: Nausea/Vomiting Pantoprazole Sodium (Protonix Inj) 40 mg IVP DAILY [facility] Last Admin: 05/09/17 09:43 Dose: 40 mg Topiramate (Topamax) 50 mg PO BID [facility] Last Admin: 05/09/17 09:43 Dose: 50 mg - Labs Labs: 05/09/17 07:58 05/09/17 07:58
[2017-05-09] MEDS: Sodium Bicarbonate 8.4% 150 MEQ in Dextrose 5% In Water 850 ML IV SCH (21:48)
--- NOTE | 2017-05-09 22:15 | CP.PCM.CON ---
History of Present Illness - History of Present Illness History of Present Illness: CC: Chest pain HPI: 76 Female with PMHx of invasive cholangiocarcinoma , pancreatic cyst, liver cirrhosis HTN, DM, CKD, RA, OA admitted for abdominal pain. S/P ERCP Had an episode of non exertional chest pain PMHx: invasive cholangiocarcinoma , pancreatic cyst, liver cirhosis, HTN, DM, CKD, RA, OA, PSHx: Cholecystectomy, Appendectomy All: Fish (anaphylaxis); Cipro (anaphylaxis) SHx: Denied tobacco, alcohol, illicit drug use FHx: Unremarkable PMD: Dr. Mickey Triana at previous discharge: HTN: Procardia XL 120mg by mouth daily, Bystolic 2.5 mg by mouth daily. DM: Januvia 50mg by mouth daily, Metformin 500mg by mouth daily CAD: Plavix 75mg by mouth daily. Renal: Sodium bicarbonate 650 by mouth three times a day. Neuro: topamax 50mg by mouth twice a day and Nuedexta 1 tablet by mouth twice a day. Review of Systems - Constitutional Constitutional: absent: Chills, Fever - EENT Eyes: absent: Change in Vision Nose/Mouth/Throat: absent: Nasal Congestion - Cardiovascular Cardiovascular: absent: Chest Pain, Chest Pain at Rest, Dyspnea, Dyspnea on Exertion, Lightheadedness - Respiratory Respiratory: absent: Cough, Hemoptysis - Gastrointestinal Gastrointestinal: Abdominal Pain (RUQ), Nausea, Vomiting (eight times - non- bloody). absent: Constipation, Diarrhea, Dysphagia, Hematemesis, Hematochezia - Genitourinary Genitourinary: absent: Dysuria, Urinary Frequency, Bladder Distension - Musculoskeletal Musculoskeletal: absent: Back Pain, Numbness, Tingling - Neurological Neurological: absent: Tingling, Weakness - Psychiatric Psychiatric: absent: Anxiety, Depression - Endocrine Endocrine: absent: Polyuria Physical Exam - Constitutional Appears: In Acute Distress (moderate pain, moaning on stretcher), Chronically Ill - Head Exam Head Exam: ATRAUMATIC, NORMAL INSPECTION - Eye Exam Eye Exam: EOMI. absent: Scleral icterus Pupil Exam: PERRL - ENT Exam ENT Exam: Mucous Membranes Moist - Respiratory Exam Respiratory Exam: Clear to Auscultation Bilateral, NORMAL BREATHING PATTERN. absent: Rales, Rhonchi, Wheezes - Cardiovascular Exam Cardiovascular Exam: REGULAR RHYTHM, +S1, +S2 - GI/Abdominal Exam GI & Abdominal Exam: Soft, Tenderness (RUQ/epigastric) - Extremities Exam Extremities exam: Positive for: normal inspection. Negative for: pedal edema, tenderness - Back Exam Back exam: absent: CVA tenderness (L), CVA tenderness (R) - Neurological Exam Neurological exam: Alert, Oriented x3 - Psychiatric Exam Psychiatric exam: Normal Affect, Normal Mood - Skin Skin Exam: Normal Color, Warm Past Patient History - Infectious Disease Hx of Infectious Diseases: None - Past Medical History & Family History Past Medical History?: Yes - Past Social History Smoking Status: Never Smoked Alcohol: None Drugs: Denies Home Situation {Lives}: With Family - CARDIAC Hx Hypertension: Yes - PULMONARY Hx Respiratory Disorders: No - NEUROLOGICAL Hx Migraine: Yes - HEENT Hx HEENT Problems: No - RENAL Hx Chronic Kidney Disease: No - ENDOCRINE/METABOLIC Hx Diabetes Mellitus Type 2: Yes - HEMATOLOGICAL/ONCOLOGICAL Hx Blood Transfusions: No Hx Blood Transfusion Reaction: No Hx Cancer: Yes (Hx of colon CA (mass)) - INTEGUMENTARY Hx Dermatological Problems: No - MUSCULOSKELETAL/RHEUMATOLOGICAL Hx Arthritis: Yes - GASTROINTESTINAL Hx Pancreatitis: Yes - GENITOURINARY/GYNECOLOGICAL Hx Genitourinary Disorders: No - PSYCHIATRIC Hx Substance Use: No - SURGICAL HISTORY Hx Appendectomy: Yes Hx Cholecystectomy: Yes Hx Coronary Stent: Yes (X4) - ANESTHESIA Hx Anesthesia: Yes Hx Anesthesia Reactions: Yes Hx Malignant Hyperthermia: No Meds Allergies/Adverse Reactions: Allergies Allergy/AdvReac Type Severity Reaction Status Date / Time ciprofloxacin [From Cipro] Allergy ANAPHYLAXIS Verified 05/06/17 13:58 ciprofloxacin HCl Allergy ANAPHYLAXIS Verified 05/06/17 13:58 [From Cipro] seafood Allergy ANAPHYLAXIS Uncoded 05/06/17 13:58 - Medications Medications: Current Medications Clopidogrel Bisulfate (Plavix) 75 mg PO DAILY [facility] Dextrose (Dextrose 50% Inj) 0 ml IV STAT PRN; Protocol PRN Reason: Hypoglycemia Protocol Dextrose (Glutose 15) 0 gm PO ONCE PRN; Protocol PRN Reason: Hypoglycemia Protocol Glucagon (Glucagen Diagnostic Kit) 0 mg IM STAT PRN; Protocol PRN Reason: Hypoglycemia Protocol Hydralazine HCl (Apresoline) 10 mg IVP Q6H PRN PRN Reason: Systolic Blood Pressure Last Admin: 05/07/17 05:36 Dose: 10 mg Dextrose (Dextrose 5% In Water 1000 Ml) 1,000 mls @ 0 mls/hr IV .Q0M PRN; Protocol; Per Protocol PRN Reason: Hypoglycemia Protocol Meropenem (Merrem Iv 1 Gm Premix) 50 mls @ 50 mls/hr IVPB Q12H [facility] PRN Reason: Protocol Last Admin: 05/09/17 18:13 Dose: 50 mls/hr Sodium Bicarbonate 150 meq/ (Dextrose) 1,000 mls @ 60 mls/hr IV .[id number] [facility] Last Admin: 05/08/17 12:44 Dose: 60 mls/hr Aztreonam 1 gm/ Sodium (Chloride) 100 mls @ 100 mls/hr IVPB Q12H [facility] PRN Reason: Protocol Last Admin: 05/09/17 21:38 Dose: 100 mls/hr Insulin Human Regular (Novolin R) 0 unit SC ACHS [facility] PRN Reason: Protocol Last Admin: 05/09/17 21:27 Dose: Not Given Morphine Sulfate (Morphine) 4 mg IVP Q4 PRN PRN Reason: Pain, moderate (4-7) Last Admin: 05/09/17 12:05 Dose: 4 mg Nebivolol (Bystolic) 2.5 mg PO DAILY [facility] Last Admin: 05/09/17 09:43 Dose: 2.5 mg Nifedipine (Procardia Xl) 120 mg PO DAILY [facility] Last Admin: 05/09/17 09:42 Dose: 120 mg Ondansetron HCl (Zofran Inj) 4 mg IVP Q6H PRN PRN Reason: Nausea/Vomiting Pantoprazole Sodium (Protonix Inj) 40 mg IVP DAILY [facility] Last Admin: 05/09/17 09:43 Dose: 40 mg Topiramate (Topamax) 50 mg PO BID [facility] Last Admin: 05/09/17 18:13 Dose: 50 mg Results - Vital Signs Recent Vital Signs: Last Vital Signs Temp 98.6 F 05/09/17 15:46 Pulse 68 05/09/17 15:46 Resp 20 05/09/17 15:46 BP 130/58 L 05/09/17 15:46 Pulse Ox 94 L 05/09/17 15:46 - Labs Result Diagrams: 05/09/17 07:58 05/09/17 07:58 Labs: Laboratory Results - last 24 hr 05/08/17 05/09/17 05/09/17 21:32 06:11 07:58 WBC 5.2 RBC 2.89 L Hgb 8.9 L Hct 25.9 L MCV 89.6 MCH 30.7 MCHC 34.3 RDW 15.0 H Plt Count 120 L D MPV 9.7 Neut % (Auto) 83.1 H Lymph % (Auto) 10.9 L Zapata % (Auto) 3.5 Eos % (Auto) 2.2 Baso % (Auto) 0.3 Neut # (Auto) 4.3 Lymph # (Auto) 0.6 L Zapata # (Auto) 0.2 Eos # (Auto) 0.1 Baso # (Auto) 0.0 Sodium Potassium Chloride Carbon Dioxide Anion Gap BUN Creatinine Est GFR ( Amer) Est GFR (Non-Af Amer) POC Glucose (mg/dL) 139 H 136 H Random Glucose Calcium Phosphorus Magnesium Total Bilirubin AST ALT Alkaline Phosphatase Total Protein Albumin Globulin Albumin/Globulin Ratio 05/09/17 05/09/17 05/09/17 07:58 11:33 16:37 WBC RBC Hgb Hct MCV MCH MCHC RDW Plt Count MPV Neut % (Auto) Lymph % (Auto) Zapata % (Auto) Eos % (Auto) Baso % (Auto) Neut # (Auto) Lymph # (Auto) Zapata # (Auto) Eos # (Auto) Baso # (Auto) Sodium 139 Potassium 3.1 L Chloride 106 Carbon Dioxide 19 L Anion Gap 17 BUN 33 H Creatinine 2.6 H Est GFR ( Amer) 22 Est GFR (Non-Af Amer) 18 POC Glucose (mg/dL) 190 H 132 H Random Glucose 131 H Calcium 8.2 L Phosphorus 2.6 Magnesium 2.0 Total Bilirubin 3.1 H AST 50 H D ALT 54 H D Alkaline Phosphatase 430 H D Total Protein 6.8 Albumin 2.7 L Globulin 4.1 H Albumin/Globulin Ratio 0.7 L 05/09/17 21:17 WBC RBC Hgb Hct MCV MCH MCHC RDW Plt Count MPV Neut % (Auto) Lymph % (Auto) Zapata % (Auto) Eos % (Auto) Baso % (Auto) Neut # (Auto) Lymph # (Auto) Zapata # (Auto) Eos # (Auto) Baso # (Auto) Sodium Potassium Chloride Carbon Dioxide Anion Gap BUN Creatinine Est GFR ( Amer) Est GFR (Non-Af Amer) POC Glucose (mg/dL) 163 H Random Glucose Calcium Phosphorus Magnesium Total Bilirubin AST ALT Alkaline Phosphatase Total Protein Albumin Globulin Albumin/Globulin Ratio Assessment & Plan - Assessment and Plan (Free Text) Assessment: Abdominal Pain Admit to med/surg 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 Carter - help appreciated Surgery consulted - Dr. Hawley - hel appreciated - family states pt with OPDX surgery with Dr. Hawley GI consulted - Dr. Bills s/p ERCP with sphincterotomy, dilation and biliary stent placement on 04/04/1705/07 biliary stent removal and of insertion of new plastic stent Ct A/P (05/06/17): Metallic stent in CBD, with persistent residual moderate dilatation of CBD. Enlarged panc head w diffuse atrphty of body/tail concerning for carcinoma with biliary obstruction. Enlarged nodular liver. Solitary lesion in spleen no completely characterized on exam. CT Pancreas protocol scan (04/05/17) - Atrophy of the pancreatic body and tail with prominence of the pancreatic head, lesion surrounding/adjacent to the distal common duct cannot be excluded, endoscopic ultrasound may be helpful for further evaluation; enlarged cirrhotic liver with fatty infiltration; cholecystectomy; pneumobilia with biliary stent; inflammation and edema in the mary hepatis. Further recs per attending evaluation as per surgical team CT head/chest/neck (04/05/17) unremarkable for metastatic disease though studies are limited in the absence of IV contrast 2/2 CKD with JADE MRCP (03/31/17): showed moderately to markedly dilated proximal common bile duct with large filling defect noted in the distal common bile duct, which could represent multiple choledocholithiasis (differential consideration includes less likely distal CBD neoplasm or stricture). Also noted [id number] intrahepatic biliary ductal dilatation, cirrhosis with findings suggestive of portal hypertension including splenomegaly and trace ascites, and 6.3 millimeter cyst at the pancreatic head. - Common bile duct, stricture biopsy: Invasive adenocarcinoma, moderately differentiated Blood cultures positve for Gram neg Rods AST/ALT 230/78, Alk Phos 438 on admission - elevated over last admission, but normalized by discharge CA 19-9 level: [address] Owens: Merrem 1 gm Q12H Aztreonam 1gm IVPB Q12H Hypertensive urgency Markedly elevated at admission; large pain component * Bystolic and nifedipine XL continued (home meds) * Hydralazine 10mg IV Q6H PRN for SBP > 160 Lipid panel noted from prior admission: Tri, Chol: 186, LDL: 97, HDL: 37 UTI, hematuria Pt denies dysuria, polyuria UA (05/06/17): mod bacteria, 2+ LE, 37 WBC Urine Cx Positive for Gram Neg Rods, E. coli Zosyn 2.25 gm IV Q6H for empiric coverage Diastolic CHF (04/17/17): EF 55-60%, mod diastolic dysfxn. Moderate Pulm Htn. Trace pericardial effusion. Procardia XL 120mg PO daily, Bystolic 2.5 mg PO daily. CAD Plavix 75mg PO Daily CKD, Stage 4 Nephrology consult: Dr. Juárez -Not on dialysis at this time -UA shows protein -Baseline creatine 1-1.5, though on recent admission 2.2 -D5/NS @ 75cc/hr + NaBicarb 650mg PO TID -F/u Urine Sodium, Electrolytes, studies Metabolic Acidosis ABG: ph 7.27, CO2 17 -D5/NS @ 75cc/hr + NaBicarb 650mg PO TID Proteinuria 3+ protein in Urine Monitor Per Dr. Juárez, 24 hour urine collection ordered lasix was given due to fluid overload Anemia of chronic disease Baseline hemoglobin 10 - Admission 8.8 Last admission iron studies: * Retic count 1.5, Iron 23, TIBC 259, % Saturation 9, Ferritin 103 Monitor AM labs Diabetes Mellitus * Accuchecks * Hypoglycemia protocol * A1C- 5.1 * Hold home metformin due to elevated Cr * Januvia 50mg PO Daily * ISS- low Prophylactic measure * GI PPX: Protonix 40mg IV daily * DVT PPX: SCDs, Lovenox 30mg SC Daily Atypical chest pain. Unlikely cardiac Will monitor
--- NOTE | 2017-05-09 23:32 | CARD ---
APPROVED REPORT EKG Measurement Heart [id number] <Conclusion> Normal sinus rhythm Normal ECG
--- NOTE | 2017-05-10 02:33 | PN ---
DATE: 05/09/2017 SUBJECTIVE: The patient was seen today. She was feeling a little better. She denied any nausea or vomiting. She is trying to eat. She still has right upper quadrant pain. PHYSICAL EXAMINATION: VITAL SIGNS: T-Max is 98.6 today with a pulse of 68, blood pressure 130/58, respirations are 20. HEENT: Head is atraumatic, normocephalic. Tongue was a little moist. NECK: Supple. JVP is flat. LUNGS: Clear. No crackles or rales present. HEART: S1 and S2, regular. ABDOMEN: Soft. Still remains tender with more in the upper abdomen and right upper quadrant. Bowel sounds are present. EXTREMITIES: No edema. LABORATORY DATA: Showed white count is 5.2, hemoglobin 8.9, hematocrit 25.9, platelet count is 120 today. Sodium was 139, potassium was low at 3.1, chlorides are 106, CO2 is 19, creatinine is 2.6. Creatinine has been elevated and so we have put her on meropenem and she is on Azactam 1 gm every 12 hours and blood cultures were gram-negative rods, ID and sensitivity of which is pending at this time. Urine had E. coli, which is very sensitive. I am waiting for the blood culture report for ID and sensitivity, and I have ordered repeat cultures also to see if it is clearing from the system, blood and urine. ASSESSMENT AND PLAN: She did have ascending cholangitis. She is status post biliary stent, and she has urinary tract infection, and I will follow and she is also diabetic with pancreatic cancer. Licha Owens MD
[2017-05-10] MEDS: Meropenem IV 1 gm in NS 50 ML IVPB SCH (06:03)
[2017-05-10 07:46] LABS: BASO % 0.7 % (0.0-2.0); EOS # 0.1 K/uL (0.0-0.7); EOS % 5.5 % (0.0-4.0); HEMOGLOBIN 8.5 g/dL (11.0-16.0); LYMPH # 0.5 K/uL (1.0-4.3); LYMPH % 23.6 % (20.0-40.0); MEAN CELL VOLUME 89.2 fL (81.0-99.0); MEAN CORPUSCULAR HEMOGLOBIN 30.9 pg (27.0-31.0); MEAN CORPUSCULAR HGB CONC 34.6 g/dL (33.0-37.0); MEAN PLATELET VOLUME 9.5 fL (7.2-11.7); MONO # 0.1 K/uL (0.0-0.8); MONO % 5.9 % (0.0-10.0); NEUT # 1.4 K/uL (1.8-7.0); NEUT % 64.3 % (50.0-75.0); NRBC % 0.2 % (0.0-2.0); RBC 2.75 Mil/uL (3.80-5.20)
[2017-05-10 07:51] LABS: WHITE BLOOD COUNT 2.2 K/uL (4.8-10.8)
[2017-05-10] MEDS: (Novolin R) Insulin Human Regular 100 units/ml vial SC SCH ×4 (08:00→21:19)
[2017-05-10 08:09] LABS: SQUAMOUS EPITHIAL 2 /hpf (0-5); URINE BACTERIA RARE (<OCC); URINE BILIRUBIN NEGATIVE (NEGATIVE); URINE BLOOD 1+ (NEGATIVE); URINE CLARITY Clear (Clear); URINE COLOR Amber (YELLOW); URINE GLUCOSE (UA) 2+ mg/dL (Normal); URINE PROTEIN 3+ mg/dL (NEGATIVE); URINE UROBILINOGEN NORMAL mg/dL (0.2-1.0)
[2017-05-10 08:11] LABS: ALB/GLOB RATIO 0.6 (1.0-2.1); ALBUMIN 2.6 g/dL (3.5-5.0); CALCIUM 7.5 mg/dl (8.6-10.4)
[2017-05-10 08:12] LABS: URINE LEUKOCYTE ESTERASE 1+ Leu/uL (Negative)
[2017-05-10] MEDS: Aztreonam 1 GM in Sodium Chloride 0.9% 100 ML IVPB SCH (09:49)
[2017-05-10] MEDS: NIFEdipine 60 mg ER Tab PO SCH (09:51)
--- NOTE | 2017-05-10 10:04 | CP.PCM.PN ---
Subjective - Date & Time of Evaluation Date of Evaluation: 05/10/17 Time of Evaluation: 10:01 - Subjective Subjective: alert, no new complaint BP controlled trying fluid diet remains on bicarb gtt - same low bicarb level + low grade fevers- on IV ABs for bacteremia renal function stable- possibly new baseline phos low- to replete Objective - Vital Signs/Intake and Output Vital Signs (last 24 hours): Temp Pulse Resp BP Pulse Ox 98.6 F 68 20 129/69 96 05/10/17 07:48 05/10/17 07:48 05/10/17 07:48 05/10/17 07:48 05/10/17 07:48 Intake and Output: 05/10/17 05/10/17 06:59 18:59 Intake Total 730 Balance 730 - Medications Medications: Current Medications Clopidogrel Bisulfate (Plavix) 75 mg PO DAILY [facility] Last Admin: 05/10/17 09:50 Dose: 75 mg Dextrose (Dextrose 50% Inj) 0 ml IV STAT PRN; Protocol PRN Reason: Hypoglycemia Protocol Dextrose (Glutose 15) 0 gm PO ONCE PRN; Protocol PRN Reason: Hypoglycemia Protocol Glucagon (Glucagen Diagnostic Kit) 0 mg IM STAT PRN; Protocol PRN Reason: Hypoglycemia Protocol Hydralazine HCl (Apresoline) 10 mg IVP Q6H PRN PRN Reason: Systolic Blood Pressure Last Admin: 05/07/17 05:36 Dose: 10 mg Dextrose (Dextrose 5% In Water 1000 Ml) 1,000 mls @ 0 mls/hr IV .Q0M PRN; Protocol; Per Protocol PRN Reason: Hypoglycemia Protocol Meropenem (Merrem Iv 1 Gm Premix) 50 mls @ 50 mls/hr IVPB Q12H [facility] PRN Reason: Protocol Last Admin: 05/10/17 06:03 Dose: 50 mls/hr Sodium Bicarbonate 150 meq/ (Dextrose) 1,000 mls @ 60 mls/hr IV .[id number] [facility] Last Admin: 05/09/17 21:48 Dose: Not Given Aztreonam 1 gm/ Sodium (Chloride) 100 mls @ 100 mls/hr IVPB Q12H [facility] PRN Reason: Protocol Last Admin: 05/10/17 09:49 Dose: 100 mls/hr Insulin Human Regular (Novolin R) 0 unit SC ACHS [facility] PRN Reason: Protocol Last Admin: 05/10/17 08:00 Dose: Not Given Morphine Sulfate (Morphine) 4 mg IVP Q4 PRN PRN Reason: Pain, moderate (4-7) Last Admin: 05/09/17 12:05 Dose: 4 mg Nebivolol (Bystolic) 2.5 mg PO DAILY [facility] Last Admin: 05/10/17 09:50 Dose: 2.5 mg Nifedipine (Procardia Xl) 120 mg PO DAILY [facility] Last Admin: 05/10/17 09:51 Dose: 120 mg Ondansetron HCl (Zofran Inj) 4 mg IVP Q6H PRN PRN Reason: Nausea/Vomiting Pantoprazole Sodium (Protonix Inj) 40 mg IVP DAILY [facility] Last Admin: 05/10/17 09:51 Dose: 40 mg Topiramate (Topamax) 50 mg PO BID [facility] Last Admin: 05/09/17 18:13 Dose: 50 mg - Labs Labs: 05/10/17 07:33 05/10/17 07:33 - Constitutional Appears: No Acute Distress, Cachectic, Chronically Ill - Head Exam Head Exam: ATRAUMATIC, NORMAL INSPECTION - Eye Exam Eye Exam: EOMI, Normal appearance - Neck Exam Neck Exam: Normal Inspection. absent: Tenderness - Respiratory Exam Respiratory Exam: Clear to Ausculation Bilateral, NORMAL BREATHING PATTERN - Cardiovascular Exam Cardiovascular Exam: REGULAR RHYTHM, +S1 - GI/Abdominal Exam GI & Abdominal Exam: Soft. absent: Tenderness - Extremities Exam Extremities Exam: Normal Inspection. absent: Tenderness - Neurological Exam Neurological Exam: Alert, CN II-XII Intact - Skin Skin Exam: Dry, Warm Assessment and Plan (1) Chronic kidney disease, stage IV (severe) Status: Acute (2) Proteinuria Status: Acute (3) Biliary obstruction Status: Acute (4) Cholangiocarcinoma Status: Acute (5) HTN (hypertension) Status: Acute (6) Bacteremia Status: Acute - Assessment and Plan (Free Text) Plan: same bicarb gtt fluids replete phos IV ABs as per ID follow lytes closely
[2017-05-10] MEDS: Potassium & Sodium Phosphate PO SCH (11:41)
[2017-05-10] MEDS: Sodium Bicarbonate 8.4% 150 MEQ in Dextrose 5% In Water 1,000 ML IV SCH (13:49)
--- NOTE | 2017-05-10 15:20 | CP.PCM.PN ---
<Ana Rodriguez - Last Filed: 05/10/17 15:34> Subjective - Date & Time of Evaluation Date of Evaluation: 05/10/17 Time of Evaluation: 15:19 - Subjective Subjective: Progress Note Patient seen and examined at bedside. No acute events overnight. Patient states her pain feels better. Family at bedside asking when patient can leave. Objective - Vital Signs/Intake and Output Vital Signs (last 24 hours): Temp Pulse Resp BP Pulse Ox 98.6 F 68 20 129/69 96 05/10/17 07:48 05/10/17 07:48 05/10/17 07:48 05/10/17 07:48 05/10/17 07:48 Intake and Output: 05/10/17 05/10/17 06:59 18:59 Intake Total 730 1260 Balance 730 1260 - Medications Medications: Current Medications Clopidogrel Bisulfate (Plavix) 75 mg PO DAILY [facility] Last Admin: 05/10/17 09:50 Dose: 75 mg Dextrose (Dextrose 50% Inj) 0 ml IV STAT PRN; Protocol PRN Reason: Hypoglycemia Protocol Dextrose (Glutose 15) 0 gm PO ONCE PRN; Protocol PRN Reason: Hypoglycemia Protocol Glucagon (Glucagen Diagnostic Kit) 0 mg IM STAT PRN; Protocol PRN Reason: Hypoglycemia Protocol Hydralazine HCl (Apresoline) 10 mg IVP Q6H PRN PRN Reason: Systolic Blood Pressure Last Admin: 05/07/17 05:36 Dose: 10 mg Dextrose (Dextrose 5% In Water 1000 Ml) 1,000 mls @ 0 mls/hr IV .Q0M PRN; Protocol; Per Protocol PRN Reason: Hypoglycemia Protocol Sodium Bicarbonate 150 meq/ (Dextrose) 1,150 mls @ 60 mls/hr IV .[id number] [facility] Last Admin: 05/10/17 13:49 Dose: 60 mls/hr Meropenem 500 mg/ Sodium (Chloride) 100 mls @ 100 mls/hr IVPB Q12H [facility] PRN Reason: Protocol Insulin Human Regular (Novolin R) 0 unit SC ACHS [facility] PRN Reason: Protocol Last Admin: 05/10/17 12:11 Dose: 1 unit Morphine Sulfate (Morphine) 4 mg IVP Q4 PRN PRN Reason: Pain, moderate (4-7) Last Admin: 05/09/17 12:05 Dose: 4 mg Nebivolol (Bystolic) 2.5 mg PO DAILY [facility] Last Admin: 05/10/17 09:50 Dose: 2.5 mg Nifedipine (Procardia Xl) 120 mg PO DAILY [facility] Last Admin: 05/10/17 09:51 Dose: 120 mg Ondansetron HCl (Zofran Inj) 4 mg IVP Q6H PRN PRN Reason: Nausea/Vomiting Pantoprazole Sodium (Protonix Inj) 40 mg IVP DAILY [facility] Last Admin: 05/10/17 09:51 Dose: 40 mg Potassium Phos/Sodium Phos (Neutra-Phos) 1 pkt PO DAILY@0800 [facility] Last Admin: 05/10/17 11:41 Dose: 1 pkt Topiramate (Topamax) 50 mg PO BID [facility] Last Admin: 05/10/17 10:20 Dose: 50 mg - Labs Labs: 05/10/17 07:33 05/10/17 07:33 - Additional Findings Additional findings: - Head Exam Head Exam: ATRAUMATIC, NORMAL INSPECTION, NORMOCEPHALIC - Eye Exam Eye Exam: EOMI, Normal appearance - ENT Exam ENT Exam: Mucous Membranes Moist, Normal Exam - Neck Exam Neck Exam: Full ROM, Normal Inspection. absent: Tenderness, Thyromegaly - Respiratory Exam Respiratory Exam: Clear to Ausculation Bilateral, NORMAL BREATHING PATTERN. absent: Accessory Muscle Use, Chest Wall Tenderness - Cardiovascular Exam Cardiovascular Exam: REGULAR RHYTHM, +S1, +S2 - GI/Abdominal Exam GI & Abdominal Exam: Soft, Tenderness (right upper quadrant and right lower quadrant pain on light and deep palpation) Additional comments: no rebound, rigidity, no guarding - Extremities Exam Extremities Exam: Full ROM, Normal Capillary Refill, Normal Inspection. absent : Pedal Edema, Tenderness - Back Exam Back Exam: Full ROM, NORMAL INSPECTION. 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 Carter - help appreciated Surgery consulted - Dr. Hawley - hel appreciated - family states pt with OPDX surgery with Dr. Hawley GI consulted - Dr. Bills s/p ERCP with sphincterotomy, dilation and biliary stent placement on 04/04/1705/07 biliary stent removal and of insertion of new plastic stent Ct A/P (05/06/17): Metallic stent in CBD, with persistent residual moderate dilatation of CBD. Enlarged panc head w diffuse atrphty of body/tail concerning for carcinoma with biliary obstruction. Enlarged nodular liver. Solitary lesion in spleen no completely characterized on exam. CT Pancreas protocol scan (04/05/17) - Atrophy of the pancreatic body and tail with prominence of the pancreatic head, lesion surrounding/adjacent to the distal common duct cannot be excluded, endoscopic ultrasound may be helpful for further evaluation; enlarged cirrhotic liver with fatty infiltration; cholecystectomy; pneumobilia with biliary stent; inflammation and edema in the mary hepatis. Further recs per attending evaluation as per surgical team CT head/chest/neck (04/05/17) unremarkable for metastatic disease though studies are limited in the absence of IV contrast 2/ CKD with JADE MRCP (03/31/17): showed moderately to markedly dilated proximal common bile duct with large filling defect noted in the distal common bile duct, which could represent multiple choledocholithiasis (differential consideration includes less likely distal CBD neoplasm or stricture). Also noted [id number] intrahepatic biliary ductal dilatation, cirrhosis with findings suggestive of portal hypertension including splenomegaly and trace ascites, and 6.3 millimeter cyst at the pancreatic head. - Common bile duct, stricture biopsy: Invasive adenocarcinoma, moderately differentiated 05/07 blood cultures positive for Klebsiella pneumonia 05/09 Blood cultures negative for growth AST/ALT 230/78, Alk Phos 438 on admission - elevated over last admission, but normalized by discharge CA 19-9 level: [address] Owens: Merrem 1 gm Q12H Aztreonam 1gm IVPB Q12H Hypertensive urgency Markedly elevated at admission; large pain component * Bystolic and nifedipine XL continued (home meds) * Hydralazine 10mg IV Q6H PRN for SBP > 160 Lipid panel noted from prior admission: Tri, Chol: 186, LDL: 97, HDL: 37 UTI, hematuria Pt denies dysuria, polyuria UA (05/06/17): mod bacteria, 2+ LE, 37 WBC 05/06 Urine cultures positive for Gram neg Rods E. Coli Zosyn 2.25 gm IV Q6H for empiric coverage Diastolic CHF (04/17/17): EF 55-60%, mod diastolic dysfxn. Moderate Pulm Htn. Trace pericardial effusion. Procardia XL 120mg PO daily, Bystolic 2.5 mg PO daily. CAD Plavix 75mg PO Daily CKD, Stage 4 Nephrology consult: Dr. Juárez -Not on dialysis at this time -UA shows protein -Baseline creatine 1-1.5, though on recent admission 2.2 -D5/NS @ 75cc/hr + NaBicarb 650mg PO TID -F/u Urine Sodium, Electrolytes, studies Metabolic Acidosis ABG: ph 7.27, CO2 17 -D5/NS @ 75cc/hr + NaBicarb 650mg PO TID Proteinuria 3+ protein in Urine Monitor Per Dr. Juárez, 24 hour urine collection ordered lasix was given due to fluid overload Anemia of chronic disease Baseline hemoglobin 10 Monitor AM labs Diabetes Mellitus * Accuchecks * Hypoglycemia protocol * A1C- 5.1 * Hold home metformin due to elevated Cr * Januvia 50mg PO Daily * ISS- low Prophylactic measure * GI PPX: Protonix 40mg IV daily * DVT PPX: SCDs, Lovenox 30mg SC Daily Discussed with Dr. Hailey Rodriguez, DO PGY1 <Kvng Hart - Last Filed: 05/10/17 22:12> Objective - Vital Signs/Intake and Output Vital Signs (last 24 hours): Temp Pulse Resp BP Pulse Ox 98.7 F 71 20 115/70 97 05/10/17 15:00 05/10/17 15:00 05/10/17 15:00 05/10/17 15:00 05/10/17 15:00 Intake and Output: 05/10/17 05/11/17 18:59 06:59 Intake Total 1260 Balance 1260 - Medications Medications: Current Medications Clopidogrel Bisulfate (Plavix) 75 mg PO DAILY [facility] Last Admin: 05/10/17 09:50 Dose: 75 mg Dextrose (Dextrose 50% Inj) 0 ml IV STAT PRN; Protocol PRN Reason: Hypoglycemia Protocol Dextrose (Glutose 15) 0 gm PO ONCE PRN; Protocol PRN Reason: Hypoglycemia Protocol Glucagon (Glucagen Diagnostic Kit) 0 mg IM STAT PRN; Protocol PRN Reason: Hypoglycemia Protocol Hydralazine HCl (Apresoline) 10 mg IVP Q6H PRN PRN Reason: Systolic Blood Pressure Last Admin: 05/07/17 05:36 Dose: 10 mg Dextrose (Dextrose 5% In Water 1000 Ml) 1,000 mls @ 0 mls/hr IV .Q0M PRN; Protocol; Per Protocol PRN Reason: Hypoglycemia Protocol Sodium Bicarbonate 150 meq/ (Dextrose) 1,150 mls @ 60 mls/hr IV .[id number] [facility] Last Admin: 05/10/17 13:49 Dose: 60 mls/hr Meropenem 500 mg/ Sodium (Chloride) 100 mls @ 100 mls/hr IVPB Q12H [facility] PRN Reason: Protocol Last Admin: 05/10/17 16:18 Dose: 100 mls/hr Insulin Human Regular (Novolin R) 0 unit SC ACHS [facility] PRN Reason: Protocol Last Admin: 05/10/17 21:19 Dose: Not Given Morphine Sulfate (Morphine) 4 mg IVP Q4 PRN PRN Reason: Pain, moderate (4-7) Last Admin: 05/09/17 12:05 Dose: 4 mg Nebivolol (Bystolic) 2.5 mg PO DAILY [facility] Last Admin: 05/10/17 09:50 Dose: 2.5 mg Nifedipine (Procardia Xl) 120 mg PO DAILY [facility] Last Admin: 05/10/17 09:51 Dose: 120 mg Ondansetron HCl (Zofran Inj) 4 mg IVP Q6H PRN PRN Reason: Nausea/Vomiting Pantoprazole Sodium (Protonix Inj) 40 mg IVP DAILY [facility] Last Admin: 05/10/17 09:51 Dose: 40 mg Potassium Phos/Sodium Phos (Neutra-Phos) 1 pkt PO DAILY@0800 [facility] Last Admin: 05/10/17 11:41 Dose: 1 pkt Topiramate (Topamax) 50 mg PO BID [facility] Last Admin: 05/10/17 17:52 Dose: 50 mg - Labs Labs: 05/10/17 07:33 05/10/17 07:33 Attending/Attestation - Attestation I have personally seen and examined this patient.: Yes I have fully participated in the care of the patient.: Yes I have reviewed all pertinent clinical information, including history, physical exam and plan: Yes Notes (Text): Patient was seen and examined.no complain Lying comfortable. no fever, Mild abdominal pain.abdomen is soft,mild tenderness ,no guarding,no rigidity 1.Gram negative bacteremia 2.s/p Leukocytosis with high bands 3Cholangiocarcinoma ,s/p stent change for obstructive jaundice and transaminitis 4.Chronic renal failure stage 4 5.diabetes mellitus 6.hypertension 7.Diastolic heart failure Patient has bacteremia on antibiotics as per ID .on Meropenem. Repeat blood culture negative .D/w Dr Owens today. Dose of Meropenem adjusted. Patient has leukopenia. Recommend to follow wbc.May discharge on Meropenem for 2 weeks as per ID once leukopenia improves Monitor creatinine and continue fluids as per nephrology Surgery is planning for Pancreaticoduodenectomy .Undecided about the date of surgery as per PGY3 sugery resident Brenda. He will follow up with ous about discharge on antibiotics and bring her back for surgery We had discussion with daughter Sarah about advance directives. Undecided.Full code now. Patient aware of her Ca and participated in the conversation about resuscitation /advance directives d/w the resident. I agree with the documentation of the resident's assessment and the plan
[2017-05-10] MEDS: Meropenem 500 MG in Sodium Chloride 0.9% 100 ML IVPB SCH (16:18)
--- NOTE | 2017-05-10 17:55 | CP.PCM.PN ---
Subjective - Date & Time of Evaluation Date of Evaluation: 05/10/17 Time of Evaluation: 02:00 - Subjective Subjective: dictated Objective - Vital Signs/Intake and Output Vital Signs (last 24 hours): Temp Pulse Resp BP Pulse Ox 98.7 F 71 20 115/70 97 05/10/17 15:00 05/10/17 15:00 05/10/17 15:00 05/10/17 15:00 05/10/17 15:00 Intake and Output: 05/10/17 05/10/17 06:59 18:59 Intake Total 730 1260 Balance 730 1260 - Medications Medications: Current Medications Clopidogrel Bisulfate (Plavix) 75 mg PO DAILY [facility] [place] Last Admin: 05/10/17 09:50 Dose: 75 mg Dextrose (Dextrose 50% Inj) 0 ml IV STAT PRN; Protocol PRN Reason: Hypoglycemia Protocol Dextrose (Glutose 15) 0 gm PO ONCE PRN; Protocol PRN Reason: Hypoglycemia Protocol Glucagon (Glucagen Diagnostic Kit) 0 mg IM STAT PRN; Protocol PRN Reason: Hypoglycemia Protocol Hydralazine HCl (Apresoline) 10 mg IVP Q6H PRN PRN Reason: Systolic Blood Pressure Last Admin: 05/07/17 05:36 Dose: 10 mg Dextrose (Dextrose 5% In Water 1000 Ml) 1,000 mls @ 0 mls/hr IV .Q0M PRN; Protocol; Per Protocol PRN Reason: Hypoglycemia Protocol Sodium Bicarbonate 150 meq/ (Dextrose) 1,150 mls @ 60 mls/hr IV .[id number] [facility] Last Admin: 05/10/17 13:49 Dose: 60 mls/hr Meropenem 500 mg/ Sodium (Chloride) 100 mls @ 100 mls/hr IVPB Q12H [facility] PRN Reason: Protocol Last Admin: 05/10/17 16:18 Dose: 100 mls/hr Insulin Human Regular (Novolin R) 0 unit SC ACHS [facility] PRN Reason: Protocol Last Admin: 05/10/17 16:32 Dose: Not Given Morphine Sulfate (Morphine) 4 mg IVP Q4 PRN PRN Reason: Pain, moderate (4-7) Last Admin: 05/09/17 12:05 Dose: 4 mg Nebivolol (Bystolic) 2.5 mg PO DAILY [facility] [place] Last Admin: 05/10/17 09:50 Dose: 2.5 mg Nifedipine (Procardia Xl) 120 mg PO DAILY [facility] [place] Last Admin: 05/10/17 09:51 Dose: 120 mg Ondansetron HCl (Zofran Inj) 4 mg IVP Q6H PRN PRN Reason: Nausea/Vomiting Pantoprazole Sodium (Protonix Inj) 40 mg IVP DAILY [facility] [place] Last Admin: 05/10/17 09:51 Dose: 40 mg Potassium Phos/Sodium Phos (Neutra-Phos) 1 pkt PO DAILY@0800 [facility] [place] Last Admin: 05/10/17 11:41 Dose: 1 pkt Topiramate (Topamax) 50 mg PO BID [facility] Last Admin: 05/10/17 17:52 Dose: 50 mg - Labs Labs: 05/10/17 07:33 05/10/17 07:33
--- NOTE | 2017-05-10 18:27 | CARD ---
APPROVED REPORT EXAM: Two-dimensional and M-mode echocardiogram with Doppler and color Doppler.REPEAT FOR VEGETATION Other Information Quality : GoodRhythm : INDICATION Infection:Rule out subacute bacterial endocarditis M-Mode DIMENSIONS Left Atrium (MM)5.15 (2.5-4.0cm)Aortic Root2.53 (2.2-3.7cm) Aortic Cusp Exc.1.82 (1.5-2.0cm) Mitral Valve MV E Uotndbje803.0cm/sMV A Enjioyuh191.7cm/sE/A ratio0.8 TDI E/Lateral E'0.0E/Medial E'0.0 Tricuspid Valve TR Peak [id number]/sTR Peak Gr.[id number] LEFT VENTRICLE The left ventricle is normal size. There is normal left ventricular wall thickness. The left ventricular systolic function is normal. The left ventricular ejection fraction is within the normal range. There is normal LV segmental wall motion. Moderate diastolic dysfunction. Transmitral Doppler flow pattern is Grade II-pseudonormal filling dynamics. Elevated left atrial pressure. RIGHT VENTRICLE The right ventricle is normal size. The right ventricular systolic function is normal. ATRIA The left atrium is moderately dilated. The right atrium is moderately dilated. AORTIC VALVE The aortic valve is normal in structure. No aortic regurgitation is present. MITRAL VALVE The mitral valve is normal in structure. Mitral regurgitation is mild. TRICUSPID VALVE The tricuspid valve is normal in structure. There is mild to moderate tricuspid regurgitation. Right ventricular systolic pressure is estimated at - 50 mmHg. There is moderate pulmonary hypertension. PULMONIC VALVE The pulmonic valve is grossly normal in structure. There is mild pulmonic valvular regurgitation. GREAT VESSELS The aortic root is normal in size. The IVC is normal in size and collapses >50% with inspiration. PERICARDIAL EFFUSION There is a trace pericardial effusion. <Conclusion> The left ventricular systolic function is normal. Moderate diastolic dysfunction. Transmitral Doppler flow pattern is Grade II-pseudonormal filling dynamics. Elevated left atrial pressure. The right ventricular systolic function is normal. Moderate bi-atrial dilatation. The aortic valve is normal in structure. No aortic regurgitation is present. Mild mitral regurgitation. The mitral valve is normal in structure. There is mild to moderate tricuspid regurgitation. The tricuspid valve is normal in structure. Right ventricular systolic pressure is estimated at - 50 mmHg compatible with mild to moderate pulmonary hypertension. The pulmonic valve is grossly normal in structure.There is mild pulmonic valvular regurgitation. There is a trace pericardial effusion.
--- NOTE | 2017-05-10 23:15 | CP.PCM.PN ---
Subjective - Date & Time of Evaluation Date of Evaluation: 05/09/17 Time of Evaluation: 18:00 - Subjective Subjective: Has abdominal pain. Objective - Vital Signs/Intake and Output Vital Signs (last 24 hours): Temp Pulse Resp BP Pulse Ox 98.7 F 71 20 115/70 97 05/10/17 15:00 05/10/17 15:00 05/10/17 15:00 05/10/17 15:00 05/10/17 15:00 Intake and Output: 05/10/17 05/11/17 18:59 06:59 Intake Total 1260 Balance 1260 - Medications Medications: Current Medications Clopidogrel Bisulfate (Plavix) 75 mg PO DAILY [facility] Last Admin: 05/10/17 09:50 Dose: 75 mg Dextrose (Dextrose 50% Inj) 0 ml IV STAT PRN; Protocol PRN Reason: Hypoglycemia Protocol Dextrose (Glutose 15) 0 gm PO ONCE PRN; Protocol PRN Reason: Hypoglycemia Protocol Glucagon (Glucagen Diagnostic Kit) 0 mg IM STAT PRN; Protocol PRN Reason: Hypoglycemia Protocol Hydralazine HCl (Apresoline) 10 mg IVP Q6H PRN PRN Reason: Systolic Blood Pressure Last Admin: 05/07/17 05:36 Dose: 10 mg Dextrose (Dextrose 5% In Water 1000 Ml) 1,000 mls @ 0 mls/hr IV .Q0M PRN; Protocol; Per Protocol PRN Reason: Hypoglycemia Protocol Sodium Bicarbonate 150 meq/ (Dextrose) 1,150 mls @ 60 mls/hr IV .[id number] [facility] Last Admin: 05/10/17 13:49 Dose: 60 mls/hr Meropenem 500 mg/ Sodium (Chloride) 100 mls @ 100 mls/hr IVPB Q12H [facility] PRN Reason: Protocol Last Admin: 05/10/17 16:18 Dose: 100 mls/hr Insulin Human Regular (Novolin R) 0 unit SC ACHS [facility] PRN Reason: Protocol Last Admin: 05/10/17 21:19 Dose: Not Given Morphine Sulfate (Morphine) 4 mg IVP Q4 PRN PRN Reason: Pain, moderate (4-7) Last Admin: 05/09/17 12:05 Dose: 4 mg Nebivolol (Bystolic) 2.5 mg PO DAILY [facility] Last Admin: 05/10/17 09:50 Dose: 2.5 mg Nifedipine (Procardia Xl) 120 mg PO DAILY [facility] Last Admin: 05/10/17 09:51 Dose: 120 mg Ondansetron HCl (Zofran Inj) 4 mg IVP Q6H PRN PRN Reason: Nausea/Vomiting Pantoprazole Sodium (Protonix Inj) 40 mg IVP DAILY [facility] Last Admin: 05/10/17 09:51 Dose: 40 mg Potassium Phos/Sodium Phos (Neutra-Phos) 1 pkt PO DAILY@0800 [facility] Last Admin: 05/10/17 11:41 Dose: 1 pkt Topiramate (Topamax) 50 mg PO BID [facility] Last Admin: 05/10/17 17:52 Dose: 50 mg - Labs Labs: 05/10/17 07:33 05/10/17 07:33 - Head Exam Head Exam: ATRAUMATIC - Eye Exam Eye Exam: Normal appearance - ENT Exam ENT Exam: Mucous Membranes Dry - Respiratory Exam Respiratory Exam: NORMAL BREATHING PATTERN - Cardiovascular Exam Cardiovascular Exam: +S1, +S2 - GI/Abdominal Exam GI & Abdominal Exam: Normal Bowel Sounds Assessment and Plan (1) Anemia Assessment & Plan: chronic disease Status: Acute (2) Thrombocytopenia Assessment & Plan: improved secondary to infection Status: Acute (3) Cholangiocarcinoma Assessment & Plan: outpatient surgery Status: Acute
--- NOTE | 2017-05-10 23:16 | CP.PCM.PN ---
Subjective - Date & Time of Evaluation Date of Evaluation: 05/10/17 Time of Evaluation: 19:00 - Subjective Subjective: Has abdominal pain. Objective - Vital Signs/Intake and Output Vital Signs (last 24 hours): Temp Pulse Resp BP Pulse Ox 98.7 F 71 20 115/70 97 05/10/17 15:00 05/10/17 15:00 05/10/17 15:00 05/10/17 15:00 05/10/17 15:00 Intake and Output: 05/10/17 05/11/17 18:59 06:59 Intake Total 1260 Balance 1260 - Medications Medications: Current Medications Clopidogrel Bisulfate (Plavix) 75 mg PO DAILY [facility] Last Admin: 05/10/17 09:50 Dose: 75 mg Dextrose (Dextrose 50% Inj) 0 ml IV STAT PRN; Protocol PRN Reason: Hypoglycemia Protocol Dextrose (Glutose 15) 0 gm PO ONCE PRN; Protocol PRN Reason: Hypoglycemia Protocol Glucagon (Glucagen Diagnostic Kit) 0 mg IM STAT PRN; Protocol PRN Reason: Hypoglycemia Protocol Hydralazine HCl (Apresoline) 10 mg IVP Q6H PRN PRN Reason: Systolic Blood Pressure Last Admin: 05/07/17 05:36 Dose: 10 mg Dextrose (Dextrose 5% In Water 1000 Ml) 1,000 mls @ 0 mls/hr IV .Q0M PRN; Protocol; Per Protocol PRN Reason: Hypoglycemia Protocol Sodium Bicarbonate 150 meq/ (Dextrose) 1,150 mls @ 60 mls/hr IV .[id number] [facility] Last Admin: 05/10/17 13:49 Dose: 60 mls/hr Meropenem 500 mg/ Sodium (Chloride) 100 mls @ 100 mls/hr IVPB Q12H [facility] PRN Reason: Protocol Last Admin: 05/10/17 16:18 Dose: 100 mls/hr Insulin Human Regular (Novolin R) 0 unit SC ACHS [facility] PRN Reason: Protocol Last Admin: 05/10/17 21:19 Dose: Not Given Morphine Sulfate (Morphine) 4 mg IVP Q4 PRN PRN Reason: Pain, moderate (4-7) Last Admin: 05/09/17 12:05 Dose: 4 mg Nebivolol (Bystolic) 2.5 mg PO DAILY [facility] Last Admin: 05/10/17 09:50 Dose: 2.5 mg Nifedipine (Procardia Xl) 120 mg PO DAILY [facility] Last Admin: 05/10/17 09:51 Dose: 120 mg Ondansetron HCl (Zofran Inj) 4 mg IVP Q6H PRN PRN Reason: Nausea/Vomiting Pantoprazole Sodium (Protonix Inj) 40 mg IVP DAILY [facility] Last Admin: 05/10/17 09:51 Dose: 40 mg Potassium Phos/Sodium Phos (Neutra-Phos) 1 pkt PO DAILY@0800 [facility] Last Admin: 05/10/17 11:41 Dose: 1 pkt Topiramate (Topamax) 50 mg PO BID [facility] Last Admin: 05/10/17 17:52 Dose: 50 mg - Labs Labs: 05/10/17 07:33 05/10/17 07:33 - Head Exam Head Exam: ATRAUMATIC - Eye Exam Eye Exam: Normal appearance - ENT Exam ENT Exam: Mucous Membranes Dry - Respiratory Exam Respiratory Exam: NORMAL BREATHING PATTERN - Cardiovascular Exam Cardiovascular Exam: +S1, +S2 - GI/Abdominal Exam GI & Abdominal Exam: Normal Bowel Sounds Assessment and Plan (1) Anemia Assessment & Plan: anemia of chronic disease Status: Acute (2) Thrombocytopenia Assessment & Plan: mild secondary to infection Status: Acute (3) Cholangiocarcinoma Assessment & Plan: outpatient surgery Status: Acute
--- NOTE | 2017-05-10 23:21 | PN ---
DATE: SUBJECTIVE: The patient was seen today. She was feeling better. She denied any nausea, vomiting and she is trying to eat. Her pain is better. Her cultures also came back and they were negative; however, she dropped her white count. Her white count is low. PHYSICAL EXAMINATION VITAL SIGNS: T-max is 98.7, pulse 71, blood pressure 115/70, respirations are 20. HEENT: Head is atraumatic, normocephalic. Pupils are reacting to light. Pallor present. NECK: Supple. LUNGS: Clear. HEART: S1, S2 is regular. ABDOMEN: Remains soft. Nontender with minimal tenderness in right upper quadrant. No guarding. No rigidity present. EXTREMITIES: Has no edema, clubbing or cyanosis. LABORATORY DATA: Her white count, however, dropped from 5.2 to 2.2, hemoglobin is 8.5, hematocrit 24.5, platelet count is 109, so she remains pancytopenic. Her white count was 5.2 yesterday and there are no bands reported and machine diff shows neutrophil 64. Lymphs are 23, eos are 5.5 and her creatinine remains at 2.5, BUN is 32. LFTs shows total bili is 1.6, alk phos is 408, albumin is 2.6, AST is 38, ALT is 43, and her culture report came back. Blood cultures are Klebsiella pneumoniae and urine culture was E. coli, so the urine was very sensitive to Cipro and to other drugs, but SHE IS ALLERGIC TO CIPRO. The blood culture has Klebsiella and it is sensitive to Cipro and meropenem and ertapenem. At this time, I think she is doing better and I would cut down on the meropenem as I was giving her higher dose due to severe bandemia and septicemia. Blood culture is negative now. I will cut down the dose of meropenem to 500 every 12 and patient will need 11 days more of meropenem 500 mg every 12 hours or it can be changed to Invanz 500 mg IV piggyback daily for next 12 days. So, we will continue this, but I want to see the WBC count go up, so I would repeat the white count tomorrow and we will follow. She had Klebsiella pneumoniae and septicemia with history of cholangiocarcinoma, had ascending cholangitis. Her stent was just changed on this admission, CBD stent and she is feeling better and she also had a UTI. She has a cholangiocarcinoma and she needs to follow up with surgeon when she is done with the antibiotics. Licha Owens MD
--- NOTE | 2017-05-10 23:55 | CP.PCM.PN ---
Subjective - Date & Time of Evaluation Date of Evaluation: 05/10/17 Time of Evaluation: 17:20 - Subjective Subjective: Patient seen and evaluated No cardiac events noted Review of Systems - Constitutional Constitutional: absent: Chills, Fever - EENT Eyes: absent: Change in Vision Nose/Mouth/Throat: absent: Nasal Congestion - Cardiovascular Cardiovascular: absent: Chest Pain, Chest Pain at Rest, Dyspnea, Dyspnea on Exertion, Lightheadedness - Respiratory Respiratory: absent: Cough, Hemoptysis - Gastrointestinal Gastrointestinal: Abdominal Pain (RUQ), Nausea, Vomiting (eight times - non- bloody). absent: Constipation, Diarrhea, Dysphagia, Hematemesis, Hematochezia - Genitourinary Genitourinary: absent: Dysuria, Urinary Frequency, Bladder Distension - Musculoskeletal Musculoskeletal: absent: Back Pain, Numbness, Tingling - Neurological Neurological: absent: Tingling, Weakness - Psychiatric Psychiatric: absent: Anxiety, Depression - Endocrine Endocrine: absent: Polyuria Physical Exam - Constitutional Appears: In Acute Distress (moderate pain, moaning on stretcher), Chronically Ill - Head Exam Head Exam: ATRAUMATIC, NORMAL INSPECTION - Eye Exam Eye Exam: EOMI. absent: Scleral icterus Pupil Exam: PERRL - ENT Exam ENT Exam: Mucous Membranes Moist - Respiratory Exam Respiratory Exam: Clear to Auscultation Bilateral, NORMAL BREATHING PATTERN. absent: Rales, Rhonchi, Wheezes - Cardiovascular Exam Cardiovascular Exam: REGULAR RHYTHM, +S1, +S2 - GI/Abdominal Exam GI & Abdominal Exam: Soft, Tenderness (RUQ/epigastric) - Extremities Exam Extremities exam: Positive for: normal inspection. Negative for: pedal edema, tenderness - Back Exam Back exam: absent: CVA tenderness (L), CVA tenderness (R) - Neurological Exam Neurological exam: Alert, Oriented x3 - Psychiatric Exam Psychiatric exam: Normal Affect, Normal Mood - Skin Skin Exam: Normal Color, Warm Objective - Vital Signs/Intake and Output Vital Signs (last 24 hours): Temp Pulse Resp BP Pulse Ox 98.7 F 71 20 115/70 97 05/10/17 15:00 05/10/17 15:00 05/10/17 15:00 05/10/17 15:00 05/10/17 15:00 Intake and Output: 05/10/17 05/11/17 18:59 06:59 Intake Total 1260 Balance 1260 - Medications Medications: Current Medications Clopidogrel Bisulfate (Plavix) 75 mg PO DAILY [facility] Last Admin: 05/10/17 09:50 Dose: 75 mg Dextrose (Dextrose 50% Inj) 0 ml IV STAT PRN; Protocol PRN Reason: Hypoglycemia Protocol Dextrose (Glutose 15) 0 gm PO ONCE PRN; Protocol PRN Reason: Hypoglycemia Protocol Glucagon (Glucagen Diagnostic Kit) 0 mg IM STAT PRN; Protocol PRN Reason: Hypoglycemia Protocol Hydralazine HCl (Apresoline) 10 mg IVP Q6H PRN PRN Reason: Systolic Blood Pressure Last Admin: 05/07/17 05:36 Dose: 10 mg Dextrose (Dextrose 5% In Water 1000 Ml) 1,000 mls @ 0 mls/hr IV .Q0M PRN; Protocol; Per Protocol PRN Reason: Hypoglycemia Protocol Sodium Bicarbonate 150 meq/ (Dextrose) 1,150 mls @ 60 mls/hr IV .[id number] [facility] Last Admin: 05/10/17 13:49 Dose: 60 mls/hr Meropenem 500 mg/ Sodium (Chloride) 100 mls @ 100 mls/hr IVPB Q12H [facility] PRN Reason: Protocol Last Admin: 05/10/17 16:18 Dose: 100 mls/hr Insulin Human Regular (Novolin R) 0 unit SC ACHS [facility] PRN Reason: Protocol Last Admin: 05/10/17 21:19 Dose: Not Given Morphine Sulfate (Morphine) 4 mg IVP Q4 PRN PRN Reason: Pain, moderate (4-7) Last Admin: 05/09/17 12:05 Dose: 4 mg Nebivolol (Bystolic) 2.5 mg PO DAILY [facility] Last Admin: 05/10/17 09:50 Dose: 2.5 mg Nifedipine (Procardia Xl) 120 mg PO DAILY [facility] Last Admin: 05/10/17 09:51 Dose: 120 mg Ondansetron HCl (Zofran Inj) 4 mg IVP Q6H PRN PRN Reason: Nausea/Vomiting Pantoprazole Sodium (Protonix Inj) 40 mg IVP DAILY [facility] Last Admin: 05/10/17 09:51 Dose: 40 mg Potassium Phos/Sodium Phos (Neutra-Phos) 1 pkt PO DAILY@0800 [facility] Last Admin: 05/10/17 11:41 Dose: 1 pkt Topiramate (Topamax) 50 mg PO BID JESSICA Last Admin: 05/10/17 17:52 Dose: 50 mg - Labs Labs: 05/10/17 07:33 05/10/17 07:33 Assessment and Plan - Assessment and Plan (Free Text) Assessment: Abdominal Pain Admit to med/surg 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 Carter - help appreciated Surgery consulted - Dr. Hawley - hel appreciated - family states pt with OPDX surgery with Dr. Hawley GI consulted - Dr. Bills s/p ERCP with sphincterotomy, dilation and biliary stent placement on 04/04/1705/07 biliary stent removal and of insertion of new plastic stent Ct A/P (05/06/17): Metallic stent in CBD, with persistent residual moderate dilatation of CBD. Enlarged panc head w diffuse atrphty of body/tail concerning for carcinoma with biliary obstruction. Enlarged nodular liver. Solitary lesion in spleen no completely characterized on exam. CT Pancreas protocol scan (04/05/17) - Atrophy of the pancreatic body and tail with prominence of the pancreatic head, lesion surrounding/adjacent to the distal common duct cannot be excluded, endoscopic ultrasound may be helpful for further evaluation; enlarged cirrhotic liver with fatty infiltration; cholecystectomy; pneumobilia with biliary stent; inflammation and edema in the mary hepatis. Further recs per attending evaluation as per surgical team CT head/chest/neck (04/05/17) unremarkable for metastatic disease though studies are limited in the absence of IV contrast 2/2 CKD with JADE MRCP (03/31/17): showed moderately to markedly dilated proximal common bile duct with large filling defect noted in the distal common bile duct, which could represent multiple choledocholithiasis (differential consideration includes less likely distal CBD neoplasm or stricture). Also noted [id number] intrahepatic biliary ductal dilatation, cirrhosis with findings suggestive of portal hypertension including splenomegaly and trace ascites, and 6.3 millimeter cyst at the pancreatic head. - Common bile duct, stricture biopsy: Invasive adenocarcinoma, moderately differentiated Blood cultures positve for Gram neg Rods AST/ALT 230/78, Alk Phos 438 on admission - elevated over last admission, but normalized by discharge CA 19-9 level: [address] Owens: Merrem 1 gm Q12H Aztreonam 1gm IVPB Q12H Hypertensive urgency Markedly elevated at admission; large pain component * Bystolic and nifedipine XL continued (home meds) * Hydralazine 10mg IV Q6H PRN for SBP > 160 Lipid panel noted from prior admission: Tri, Chol: 186, LDL: 97, HDL: 37 UTI, hematuria Pt denies dysuria, polyuria UA (05/06/17): mod bacteria, 2+ LE, 37 WBC Urine Cx Positive for Gram Neg Rods, E. coli Zosyn 2.25 gm IV Q6H for empiric coverage Diastolic CHF (04/17/17): EF 55-60%, mod diastolic dysfxn. Moderate Pulm Htn. Trace pericardial effusion. Procardia XL 120mg PO daily, Bystolic 2.5 mg PO daily. CAD Plavix 75mg PO Daily CKD, Stage 4 Nephrology consult: Dr. Juárez -Not on dialysis at this time -UA shows protein -Baseline creatine 1-1.5, though on recent admission 2.2 -D5/NS @ 75cc/hr + NaBicarb 650mg PO TID -F/u Urine Sodium, Electrolytes, studies Metabolic Acidosis ABG: ph 7.27, CO2 17 -D5/NS @ 75cc/hr + NaBicarb 650mg PO TID Proteinuria 3+ protein in Urine Monitor Per Dr. Juárez, 24 hour urine collection ordered lasix was given due to fluid overload Anemia of chronic disease Baseline hemoglobin 10 - Admission 8.8 Last admission iron studies: * Retic count 1.5, Iron 23, TIBC 259, % Saturation 9, Ferritin 103 Monitor AM labs Diabetes Mellitus * Accuchecks * Hypoglycemia protocol * A1C- 5.1 * Hold home metformin due to elevated Cr * Januvia 50mg PO Daily * ISS- low Prophylactic measure * GI PPX: Protonix 40mg IV daily * DVT PPX: SCDs, Lovenox 30mg SC Daily Atypical chest pain. Unlikely cardiac Will monitor
[2017-05-11] MEDS: Meropenem 500 MG in Sodium Chloride 0.9% 100 ML IVPB SCH ×2 (05:03→16:56)
--- NOTE | 2017-05-11 07:07 | CP.PCM.PN ---
Subjective - Date & Time of Evaluation Date of Evaluation: 05/11/17 Time of Evaluation: 07:08 - Subjective Subjective: Progress Note for Dr. Baron Patient seen and examined at bedside. Patient tolerating abdominal pain well. no acute events overnight. Objective - Vital Signs/Intake and Output Vital Signs (last 24 hours): Temp Pulse Resp BP Pulse Ox 99 F 65 20 146/71 96 05/11/17 00:00 05/11/17 00:00 05/11/17 00:00 05/11/17 00:00 05/11/17 00:00 Intake and Output: 05/11/17 05/11/17 06:59 18:59 Intake Total 680 Balance 680 - Medications Medications: Current Medications Clopidogrel Bisulfate (Plavix) 75 mg PO DAILY [facility] Last Admin: 05/10/17 09:50 Dose: 75 mg Dextrose (Dextrose 50% Inj) 0 ml IV STAT PRN; Protocol PRN Reason: Hypoglycemia Protocol Dextrose (Glutose 15) 0 gm PO ONCE PRN; Protocol PRN Reason: Hypoglycemia Protocol Glucagon (Glucagen Diagnostic Kit) 0 mg IM STAT PRN; Protocol PRN Reason: Hypoglycemia Protocol Hydralazine HCl (Apresoline) 10 mg IVP Q6H PRN PRN Reason: Systolic Blood Pressure Last Admin: 05/07/17 05:36 Dose: 10 mg Dextrose (Dextrose 5% In Water 1000 Ml) 1,000 mls @ 0 mls/hr IV .Q0M PRN; Protocol; Per Protocol PRN Reason: Hypoglycemia Protocol Sodium Bicarbonate 150 meq/ (Dextrose) 1,150 mls @ 60 mls/hr IV .[id number] [facility] Last Admin: 05/10/17 13:49 Dose: 60 mls/hr Meropenem 500 mg/ Sodium (Chloride) 100 mls @ 100 mls/hr IVPB Q12H JESSICA PRN Reason: Protocol Last Admin: 05/11/17 05:03 Dose: 100 mls/hr Insulin Human Regular (Novolin R) 0 unit SC ACHS [facility] PRN Reason: Protocol Last Admin: 05/10/17 21:19 Dose: Not Given Morphine Sulfate (Morphine) 4 mg IVP Q4 PRN PRN Reason: Pain, moderate (4-7) Last Admin: 05/09/17 12:05 Dose: 4 mg Nebivolol (Bystolic) 2.5 mg PO DAILY [facility] Last Admin: 05/10/17 09:50 Dose: 2.5 mg Nifedipine (Procardia Xl) 120 mg PO DAILY [facility] Last Admin: 05/10/17 09:51 Dose: 120 mg Ondansetron HCl (Zofran Inj) 4 mg IVP Q6H PRN PRN Reason: Nausea/Vomiting Pantoprazole Sodium (Protonix Inj) 40 mg IVP DAILY [facility] Last Admin: 05/10/17 09:51 Dose: 40 mg Potassium Phos/Sodium Phos (Neutra-Phos) 1 pkt PO DAILY@0800 [facility] Last Admin: 05/10/17 11:41 Dose: 1 pkt Topiramate (Topamax) 50 mg PO BID [facility] Last Admin: 05/10/17 17:52 Dose: 50 mg - Labs Labs: 05/10/17 07:33 05/10/17 07:33 - Additional Findings Additional findings: Head Exam Head Exam: ATRAUMATIC, NORMAL INSPECTION, NORMOCEPHALIC - Eye Exam Eye Exam: EOMI, Normal appearance - ENT Exam ENT Exam: Mucous Membranes Moist, Normal Exam - Neck Exam Neck Exam: Full ROM, Normal Inspection. absent: Tenderness, Thyromegaly - Respiratory Exam Respiratory Exam: Clear to Ausculation Bilateral, NORMAL BREATHING PATTERN. absent: Accessory Muscle Use, Chest Wall Tenderness - Cardiovascular Exam Cardiovascular Exam: REGULAR RHYTHM, +S1, +S2 - GI/Abdominal Exam GI & Abdominal Exam: Soft, Tenderness (right upper quadrant and right lower quadrant pain on light and deep palpation) Additional comments: no rebound, rigidity, no guarding - Extremities Exam Extremities Exam: Full ROM, Normal Capillary Refill, Normal Inspection. absent : Pedal Edema, Tenderness - Back Exam Back Exam: Full ROM, NORMAL INSPECTION. 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 Carter - help appreciated Surgery consulted - Dr. Hawley - hel appreciated - family states pt with OPDX surgery with Dr. Hawley GI consulted - Dr. Bills s/p ERCP with sphincterotomy, dilation and biliary stent placement on 04/04/1705/07 biliary stent removal and of insertion of new plastic stent Ct A/P (05/06/17): Metallic stent in CBD, with persistent residual moderate dilatation of CBD. Enlarged panc head w diffuse atrphty of body/tail concerning for carcinoma with biliary obstruction. Enlarged nodular liver. Solitary lesion in spleen no completely characterized on exam. CT Pancreas protocol scan (04/05/17) - Atrophy of the pancreatic body and tail with prominence of the pancreatic head, lesion surrounding/adjacent to the distal common duct cannot be excluded, endoscopic ultrasound may be helpful for further evaluation; enlarged cirrhotic liver with fatty infiltration; cholecystectomy; pneumobilia with biliary stent; inflammation and edema in the mary hepatis. Further recs per attending evaluation as per surgical team CT head/chest/neck (04/05/17) unremarkable for metastatic disease though studies are limited in the absence of IV contrast 03/16 CKD with JADE MRCP (03/31/17): showed moderately to markedly dilated proximal common bile duct with large filling defect noted in the distal common bile duct, which could represent multiple choledocholithiasis (differential consideration includes less likely distal CBD neoplasm or stricture). Also noted [id number] intrahepatic biliary ductal dilatation, cirrhosis with findings suggestive of portal hypertension including splenomegaly and trace ascites, and 6.3 millimeter cyst at the pancreatic head. - Common bile duct, stricture biopsy: Invasive adenocarcinoma, moderately differentiated 05/07 blood cultures positive for Klebsiella pneumonia 05/09 Blood cultures negative for growth AST/ALT 230/78, Alk Phos 438 on admission - elevated over last admission, but normalized by discharge CA 19-9 level: [address] Owens: Merrem 1 gm Q12H Aztreonam 1gm IVPB Q12H 05/10: Merrem 500 mg Q12H until 05/22/17 or Invanz 500 mg IV QD until 05/23/17 Hypertensive urgency Markedly elevated at admission; large pain component * Bystolic and nifedipine XL continued (home meds) * Hydralazine 10mg IV Q6H PRN for SBP > 160 Lipid panel noted from prior admission: Tri, Chol: 186, LDL: 97, HDL: 37 UTI, hematuria Pt denies dysuria, polyuria UA (05/06/17): mod bacteria, 2+ LE, 37 WBC 05/06 Urine cultures positive for Gram neg Rods E. Coli Zosyn 2.25 gm IV Q6H for empiric coverage Diastolic CHF (04/17/17): EF 55-60%, mod diastolic dysfxn. Moderate Pulm Htn. Trace pericardial effusion. Procardia XL 120mg PO daily, Bystolic 2.5 mg PO daily. CAD Plavix 75mg PO Daily CKD, Stage 4 Nephrology consult: Dr. Juárez -Not on dialysis at this time -UA shows protein -Baseline creatine 1-1.5, though on recent admission 2.2 -D5/NS @ 75cc/hr + NaBicarb 650mg PO TID -F/u Urine Sodium, Electrolytes, studies Metabolic Acidosis ABG: ph 7.27, CO2 17 -D5/NS @ 75cc/hr + NaBicarb 650mg PO TID Proteinuria 3+ protein in Urine Monitor Per Dr. Juárez, 24 hour urine collection ordered lasix was given due to fluid overload Anemia of chronic disease Baseline hemoglobin 10 Monitor AM labs Diabetes Mellitus * Accuchecks * Hypoglycemia protocol * A1C- 5.1 * Hold home metformin due to elevated Cr * Januvia 50mg PO Daily * ISS- low Prophylactic measure * GI PPX: Protonix 40mg IV daily * DVT PPX: SCDs, Lovenox 30mg SC Daily Discussed with Dr. Scott Patient to go to rehabilitation to finish course of antibiotics, consider discharge to rehabilitation center Wednesday 05/10: Merrem 500 mg Q12H until 05/22/17 or Invanz 500 mg IV QD until 05/23/17 Ana Rodriguez, DO PGY1
[2017-05-11 07:46] LABS: BASO % 0.7 % (0.0-2.0); EOS # 0.2 K/uL (0.0-0.7); EOS % 7.3 % (0.0-4.0); HEMOGLOBIN 8.2 g/dL (11.0-16.0); LYMPH # 0.7 K/uL (1.0-4.3); LYMPH % 33.9 % (20.0-40.0); MEAN CORPUSCULAR HEMOGLOBIN 30.8 pg (27.0-31.0); MEAN CORPUSCULAR HGB CONC 34.6 g/dL (33.0-37.0); MEAN PLATELET VOLUME 9.4 fL (7.2-11.7); MONO # 0.2 K/uL (0.0-0.8); MONO % 8.7 % (0.0-10.0); NEUT # 1.1 K/uL (1.8-7.0); NEUT % 49.4 % (50.0-75.0); RBC 2.67 Mil/uL (3.80-5.20); RED CELL DISTRIBUTION WIDTH 14.7 % (11.5-14.5); WHITE BLOOD COUNT 2.2 K/uL (4.8-10.8)
[2017-05-11 08:17] LABS: ALB/GLOB RATIO 0.6 (1.0-2.1); ALBUMIN 2.4 g/dL (3.5-5.0); CALCIUM 7.6 mg/dl (8.6-10.4)
[2017-05-11] MEDS: (Novolin R) Insulin Human Regular 100 units/ml vial SC SCH ×4 (08:18→21:28)
[2017-05-11] MEDS: Potassium & Sodium Phosphate PO SCH (08:37)
[2017-05-11] MEDS: NIFEdipine 60 mg ER Tab PO SCH (10:21)
[2017-05-11] MEDS: Sodium Bicarbonate 8.4% 150 MEQ in Dextrose 5% In Water 1,000 ML IV SCH ×2 (10:22→23:15)
--- NOTE | 2017-05-11 10:54 | CP.PCM.PN ---
<Brad Mixon - Last Filed: 05/11/17 16:48> Subjective - Date & Time of Evaluation Date of Evaluation: 05/11/17 Time of Evaluation: 09:20 - Subjective Subjective: PGY2 Cardiology Progress Note for Dr. Corona Patient seen and examined at bedside. No acute distress. Patient denies chest pain for the past 5 days. Denies SOB or LE edema. She is resting comfortably and offers no additional acute complaints. 12-point review of systems is otherwise negative. Objective - Vital Signs/Intake and Output Vital Signs (last 24 hours): Temp Pulse Resp BP Pulse Ox 98.1 F 68 20 155/71 H 96 05/11/17 07:19 05/11/17 07:19 05/11/17 07:19 05/11/17 07:19 05/11/17 07:19 Intake and Output: 05/11/17 05/11/17 06:59 18:59 Intake Total 680 Balance 680 - Medications Medications: Current Medications Clopidogrel Bisulfate (Plavix) 75 mg PO DAILY [facility] Last Admin: 05/11/17 10:20 Dose: 75 mg Dextrose (Dextrose 50% Inj) 0 ml IV STAT PRN; Protocol PRN Reason: Hypoglycemia Protocol Dextrose (Glutose 15) 0 gm PO ONCE PRN; Protocol PRN Reason: Hypoglycemia Protocol Glucagon (Glucagen Diagnostic Kit) 0 mg IM STAT PRN; Protocol PRN Reason: Hypoglycemia Protocol Hydralazine HCl (Apresoline) 10 mg IVP Q6H PRN PRN Reason: Systolic Blood Pressure Last Admin: 05/07/17 05:36 Dose: 10 mg Dextrose (Dextrose 5% In Water 1000 Ml) 1,000 mls @ 0 mls/hr IV .Q0M PRN; Protocol; Per Protocol PRN Reason: Hypoglycemia Protocol Sodium Bicarbonate 150 meq/ (Dextrose) 1,150 mls @ 60 mls/hr IV .[id number] [facility] Last Admin: 05/11/17 10:22 Dose: Not Given Meropenem 500 mg/ Sodium (Chloride) 100 mls @ 100 mls/hr IVPB Q12H JESSICA PRN Reason: Protocol Last Admin: 05/11/17 05:03 Dose: 100 mls/hr Insulin Human Regular (Novolin R) 0 unit SC ACHS JESSICA PRN Reason: Protocol Last Admin: 05/11/17 08:18 Dose: Not Given Morphine Sulfate (Morphine) 4 mg IVP Q4 PRN PRN Reason: Pain, moderate (4-7) Last Admin: 05/09/17 12:05 Dose: 4 mg Nebivolol (Bystolic) 2.5 mg PO DAILY [facility] Last Admin: 05/11/17 10:21 Dose: 2.5 mg Nifedipine (Procardia Xl) 120 mg PO DAILY [facility] Last Admin: 05/11/17 10:21 Dose: 120 mg Ondansetron HCl (Zofran Inj) 4 mg IVP Q6H PRN PRN Reason: Nausea/Vomiting Pantoprazole Sodium (Protonix Inj) 40 mg IVP DAILY [facility] Last Admin: 05/11/17 10:20 Dose: 40 mg Potassium Phos/Sodium Phos (Neutra-Phos) 1 pkt PO DAILY@0800 [facility] Last Admin: 05/11/17 08:37 Dose: 1 pkt Topiramate (Topamax) 50 mg PO BID [facility] Last Admin: 05/11/17 10:20 Dose: 50 mg - Labs Labs: 05/11/17 07:33 05/11/17 07:33 - Additional Findings Additional findings: Head Exam Head Exam: ATRAUMATIC, NORMAL INSPECTION, NORMOCEPHALIC - Eye Exam Eye Exam: EOMI, Normal appearance - ENT Exam ENT Exam: Mucous Membranes Moist, Normal Exam - Neck Exam Neck Exam: Full ROM, Normal Inspection. absent: Tenderness, Thyromegaly - Respiratory Exam Respiratory Exam: Clear to Ausculation Bilateral, NORMAL BREATHING PATTERN. absent: Accessory Muscle Use, Chest Wall Tenderness - Cardiovascular Exam Cardiovascular Exam: REGULAR RHYTHM, +S1, +S2, absent: JVD - GI/Abdominal Exam GI & Abdominal Exam: Soft, Tenderness (right upper quadrant and right lower quadrant pain on light and deep palpation) - Extremities Exam Extremities Exam: Full ROM, Normal Capillary Refill, Normal Inspection. absent : Pedal Edema, Tenderness - Back Exam Back Exam: Full ROM, NORMAL INSPECTION. absent: paraspinal tenderness - Neurological Exam Neurological Exam: Alert, Awake, CN II-XII Intact Assessment and Plan - Assessment and Plan (Free Text) Assessment: Hypertensive urgency 05/11: BP 146/71, controlled, will continue to monitor. Patient has not experienced chest pain in 5 days. Markedly elevated at admission; large pain component * Bystolic and nifedipine XL continued (home meds) * Hydralazine 10mg IV Q6H PRN for SBP > 160 Diastolic CHF Echo 05/08: EF normal, diastolic dysfunction moderate, inc LA pressure, pulm HTN (50mmHg); see full report. prior echo (04/17/17): EF 55-60%, mod diastolic dysfxn. Moderate Pulm Htn. Trace pericardial effusion. Procardia XL 120mg PO daily, Bystolic 2.5 mg PO daily. CAD Plavix 75mg PO Daily Lipid panel noted from prior admission: Tri, Chol: 186, LDL: 97, HDL: [address] Cj Mixon, PGY2 <Martin Corona - Last Filed: 05/11/17 22:37> Objective - Vital Signs/Intake and Output Vital Signs (last 24 hours): Temp Pulse Resp BP Pulse Ox 97.8 F 65 20 160/70 H 98 05/11/17 15:00 05/11/17 15:00 05/11/17 15:00 05/11/17 15:00 05/11/17 15:00 Intake and Output: 05/11/17 05/12/17 18:59 06:59 Intake Total 980 980 Balance 980 980 - Medications Medications: Current Medications Clopidogrel Bisulfate (Plavix) 75 mg PO DAILY [facility] Last Admin: 05/11/17 10:20 Dose: 75 mg Dextrose (Dextrose 50% Inj) 0 ml IV STAT PRN; Protocol PRN Reason: Hypoglycemia Protocol Dextrose (Glutose 15) 0 gm PO ONCE PRN; Protocol PRN Reason: Hypoglycemia Protocol Glucagon (Glucagen Diagnostic Kit) 0 mg IM STAT PRN; Protocol PRN Reason: Hypoglycemia Protocol Hydralazine HCl (Apresoline) 10 mg IVP Q6H PRN PRN Reason: Systolic Blood Pressure Last Admin: 05/07/17 05:36 Dose: 10 mg Dextrose (Dextrose 5% In Water 1000 Ml) 1,000 mls @ 0 mls/hr IV .Q0M PRN; Protocol; Per Protocol PRN Reason: Hypoglycemia Protocol Sodium Bicarbonate 150 meq/ (Dextrose) 1,150 mls @ 60 mls/hr IV .[id number] [facility] Last Admin: 05/11/17 10:22 Dose: Not Given Meropenem 500 mg/ Sodium (Chloride) 100 mls @ 100 mls/hr IVPB Q12H JESSICA PRN Reason: Protocol Last Admin: 05/11/17 16:56 Dose: 100 mls/hr Insulin Human Regular (Novolin R) 0 unit SC ACHS JESSICA PRN Reason: Protocol Last Admin: 05/11/17 21:28 Dose: Not Given Morphine Sulfate (Morphine) 4 mg IVP Q4 PRN PRN Reason: Pain, moderate (4-7) Last Admin: 05/09/17 12:05 Dose: 4 mg Nebivolol (Bystolic) 2.5 mg PO DAILY [facility] Last Admin: 05/11/17 10:21 Dose: 2.5 mg Nifedipine (Procardia Xl) 120 mg PO DAILY [facility] Last Admin: 05/11/17 10:21 Dose: 120 mg Ondansetron HCl (Zofran Inj) 4 mg IVP Q6H PRN PRN Reason: Nausea/Vomiting Pantoprazole Sodium (Protonix Inj) 40 mg IVP DAILY [facility] Last Admin: 05/11/17 10:20 Dose: 40 mg Topiramate (Topamax) 50 mg PO BID [facility] Last Admin: 05/11/17 19:00 Dose: 50 mg - Labs Labs: 05/11/17 07:33 05/11/17 07:33 Assessment and Plan - Assessment and Plan (Free Text) Plan: Patient seen and evaluated Plan of care d/w the medical support specialist and as documented
--- NOTE | 2017-05-11 14:42 | CP.PCM.PN ---
Subjective - Date & Time of Evaluation Date of Evaluation: 05/11/17 Time of Evaluation: 14:40 - Subjective Subjective: alert; no new complaint remais on bicarb gtt phos corrected JADE resolving on treatment for bacteremia Objective - Vital Signs/Intake and Output Vital Signs (last 24 hours): Temp Pulse Resp BP Pulse Ox 98.1 F 71 20 174/86 H 99 05/11/17 07:19 05/11/17 11:45 05/11/17 07:19 05/11/17 11:45 05/11/17 11:45 Intake and Output: 05/11/17 05/11/17 06:59 18:59 Intake Total 680 Balance 680 - Medications Medications: Current Medications Clopidogrel Bisulfate (Plavix) 75 mg PO DAILY [facility] Last Admin: 05/11/17 10:20 Dose: 75 mg Dextrose (Dextrose 50% Inj) 0 ml IV STAT PRN; Protocol PRN Reason: Hypoglycemia Protocol Dextrose (Glutose 15) 0 gm PO ONCE PRN; Protocol PRN Reason: Hypoglycemia Protocol Glucagon (Glucagen Diagnostic Kit) 0 mg IM STAT PRN; Protocol PRN Reason: Hypoglycemia Protocol Hydralazine HCl (Apresoline) 10 mg IVP Q6H PRN PRN Reason: Systolic Blood Pressure Last Admin: 05/07/17 05:36 Dose: 10 mg Dextrose (Dextrose 5% In Water 1000 Ml) 1,000 mls @ 0 mls/hr IV .Q0M PRN; Protocol; Per Protocol PRN Reason: Hypoglycemia Protocol Sodium Bicarbonate 150 meq/ (Dextrose) 1,150 mls @ 60 mls/hr IV .[id number] [facility] Last Admin: 05/11/17 10:22 Dose: Not Given Meropenem 500 mg/ Sodium (Chloride) 100 mls @ 100 mls/hr IVPB Q12H [facility] PRN Reason: Protocol Last Admin: 05/11/17 05:03 Dose: 100 mls/hr Insulin Human Regular (Novolin R) 0 unit SC ACHS [facility] PRN Reason: Protocol Last Admin: 05/11/17 12:44 Dose: 1 unit Morphine Sulfate (Morphine) 4 mg IVP Q4 PRN PRN Reason: Pain, moderate (4-7) Last Admin: 05/09/17 12:05 Dose: 4 mg Nebivolol (Bystolic) 2.5 mg PO DAILY [facility] Last Admin: 05/11/17 10:21 Dose: 2.5 mg Nifedipine (Procardia Xl) 120 mg PO DAILY [facility] Last Admin: 05/11/17 10:21 Dose: 120 mg Ondansetron HCl (Zofran Inj) 4 mg IVP Q6H PRN PRN Reason: Nausea/Vomiting Pantoprazole Sodium (Protonix Inj) 40 mg IVP DAILY [facility] Last Admin: 05/11/17 10:20 Dose: 40 mg Potassium Phos/Sodium Phos (Neutra-Phos) 1 pkt PO DAILY@0800 [facility] Last Admin: 05/11/17 08:37 Dose: 1 pkt Topiramate (Topamax) 50 mg PO BID [facility] Last Admin: 05/11/17 10:20 Dose: 50 mg - Labs Labs: 05/11/17 07:33 05/11/17 07:33 - Constitutional Appears: No Acute Distress, Cachectic, Chronically Ill - Head Exam Head Exam: ATRAUMATIC, NORMAL INSPECTION - Eye Exam Eye Exam: EOMI, Scleral icterus - Neck Exam Neck Exam: Normal Inspection. absent: Tenderness - Respiratory Exam Respiratory Exam: Clear to Ausculation Bilateral, NORMAL BREATHING PATTERN - Cardiovascular Exam Cardiovascular Exam: REGULAR RHYTHM, +S1 - GI/Abdominal Exam GI & Abdominal Exam: Soft. absent: Tenderness - Extremities Exam Extremities Exam: Normal Inspection. absent: Tenderness - Neurological Exam Neurological Exam: Alert, CN II-XII Intact - Skin Skin Exam: Dry, Warm Assessment and Plan (1) Chronic kidney disease, stage IV (severe) Status: Acute (2) Proteinuria Status: Acute (3) Biliary obstruction Status: Acute (4) Cholangiocarcinoma Status: Acute (5) HTN (hypertension) Status: Acute (6) Bacteremia Status: Acute - Assessment and Plan (Free Text) Plan: Same bicarb gtt stop phos repletion monitor lytes
--- NOTE | 2017-05-11 17:26 | CARD ---
APPROVED REPORT EKG Measurement Heart [id number] OK [id number] <Conclusion> Normal sinus rhythm Normal ECG
--- NOTE | 2017-05-11 19:33 | CP.PCM.PN ---
Subjective - Date & Time of Evaluation Date of Evaluation: 05/11/17 Time of Evaluation: 02:00 - Subjective Subjective: Dictated Objective - Vital Signs/Intake and Output Vital Signs (last 24 hours): Temp Pulse Resp BP Pulse Ox 97.8 F 65 20 160/70 H 98 05/11/17 15:00 05/11/17 15:00 05/11/17 15:00 05/11/17 15:00 05/11/17 15:00 Intake and Output: 05/11/17 05/12/17 18:59 06:59 Intake Total 980 Balance 980 - Medications Medications: Current Medications Clopidogrel Bisulfate (Plavix) 75 mg PO DAILY [facility] Last Admin: 05/11/17 10:20 Dose: 75 mg Dextrose (Dextrose 50% Inj) 0 ml IV STAT PRN; Protocol PRN Reason: Hypoglycemia Protocol Dextrose (Glutose 15) 0 gm PO ONCE PRN; Protocol PRN Reason: Hypoglycemia Protocol Glucagon (Glucagen Diagnostic Kit) 0 mg IM STAT PRN; Protocol PRN Reason: Hypoglycemia Protocol Hydralazine HCl (Apresoline) 10 mg IVP Q6H PRN PRN Reason: Systolic Blood Pressure Last Admin: 05/07/17 05:36 Dose: 10 mg Dextrose (Dextrose 5% In Water 1000 Ml) 1,000 mls @ 0 mls/hr IV .Q0M PRN; Protocol; Per Protocol PRN Reason: Hypoglycemia Protocol Sodium Bicarbonate 150 meq/ (Dextrose) 1,150 mls @ 60 mls/hr IV .[id number] [facility] Last Admin: 05/11/17 10:22 Dose: Not Given Meropenem 500 mg/ Sodium (Chloride) 100 mls @ 100 mls/hr IVPB Q12H JESSICA PRN Reason: Protocol Last Admin: 05/11/17 16:56 Dose: 100 mls/hr Insulin Human Regular (Novolin R) 0 unit SC ACHS JESSICA PRN Reason: Protocol Last Admin: 05/11/17 16:56 Dose: 1 unit Morphine Sulfate (Morphine) 4 mg IVP Q4 PRN PRN Reason: Pain, moderate (4-7) Last Admin: 05/09/17 12:05 Dose: 4 mg Nebivolol (Bystolic) 2.5 mg PO DAILY [facility] Last Admin: 05/11/17 10:21 Dose: 2.5 mg Nifedipine (Procardia Xl) 120 mg PO DAILY [facility] Last Admin: 05/11/17 10:21 Dose: 120 mg Ondansetron HCl (Zofran Inj) 4 mg IVP Q6H PRN PRN Reason: Nausea/Vomiting Pantoprazole Sodium (Protonix Inj) 40 mg IVP DAILY [facility] Last Admin: 05/11/17 10:20 Dose: 40 mg Topiramate (Topamax) 50 mg PO BID [facility] Last Admin: 05/11/17 10:20 Dose: 50 mg - Labs Labs: 05/11/17 07:33 05/11/17 07:33
--- NOTE | 2017-05-11 22:06 | PN ---
DATE: SUBJECTIVE: The patient was seen today. She was feeling better, and she is tolerating IV antibiotics. She has no new complaints. No nausea, no vomiting. She continues to have still some pain on the right, in her abdomen which is expected but she is feeling better, however, she still has poor appetite, and she has been here from 05/06/2017, and she has been on meropenem for bacteremia, and she had a stent placed. PHYSICAL EXAMINATION: VITAL SIGNS: T-max now is 97.8, pulse 65, blood pressure is 165/70, respirations are 20. HEENT: Head is atraumatic, normocephalic. Pallor is present. Tongue is moist. NECK: Supple. LUNGS: Clear. HEART: S1, S2 is regular. ABDOMEN: Remains soft, nontender. EXTREMITIES: Have no edema, clubbing, or cyanosis. LABS: Noted. She has WBC of 2.2, and hemoglobin is 8.2, hematocrit 23.8, platelet count is 106. If the platelet count decreased further, I think I will have to discontinue Merrem, it could be effect of Merrem. Her BUN is 31, creatinine is 2.4. When I looked up at the cultures, blood culture is negative. Urine culture now shows GPCs, but is less than 10,000 CFU and the blood had Klebsiella, and it was not ESBL, so I can probably change it to Maxipime, but we will repeat the labs tomorrow and then decide about it and she needs another week of treatment. If she is stable, we can probably switch it to oral on Sunday. She is waiting for surgery, so there are some questions that need to be answered. We will follow and at this time, she does have pancytopenia and needs monitoring. Licha Owens MD
--- NOTE | 2017-05-11 22:49 | CP.PCM.PN ---
Subjective - Date & Time of Evaluation Date of Evaluation: 05/11/17 Time of Evaluation: 12:10 - Subjective Subjective: Has some diarrhea Objective - Vital Signs/Intake and Output Vital Signs (last 24 hours): Temp Pulse Resp BP Pulse Ox 97.8 F 65 20 160/70 H 98 05/11/17 15:00 05/11/17 15:00 05/11/17 15:00 05/11/17 15:00 05/11/17 15:00 Intake and Output: 05/11/17 05/12/17 18:59 06:59 Intake Total 980 980 Balance 980 980 - Medications Medications: Current Medications Clopidogrel Bisulfate (Plavix) 75 mg PO DAILY [facility] Last Admin: 05/11/17 10:20 Dose: 75 mg Dextrose (Dextrose 50% Inj) 0 ml IV STAT PRN; Protocol PRN Reason: Hypoglycemia Protocol Dextrose (Glutose 15) 0 gm PO ONCE PRN; Protocol PRN Reason: Hypoglycemia Protocol Glucagon (Glucagen Diagnostic Kit) 0 mg IM STAT PRN; Protocol PRN Reason: Hypoglycemia Protocol Hydralazine HCl (Apresoline) 10 mg IVP Q6H PRN PRN Reason: Systolic Blood Pressure Last Admin: 05/07/17 05:36 Dose: 10 mg Dextrose (Dextrose 5% In Water 1000 Ml) 1,000 mls @ 0 mls/hr IV .Q0M PRN; Protocol; Per Protocol PRN Reason: Hypoglycemia Protocol Sodium Bicarbonate 150 meq/ (Dextrose) 1,150 mls @ 60 mls/hr IV .[id number] [facility] Last Admin: 05/11/17 10:22 Dose: Not Given Meropenem 500 mg/ Sodium (Chloride) 100 mls @ 100 mls/hr IVPB Q12H [facility] PRN Reason: Protocol Last Admin: 05/11/17 16:56 Dose: 100 mls/hr Insulin Human Regular (Novolin R) 0 unit SC ACHS [facility] PRN Reason: Protocol Last Admin: 05/11/17 21:28 Dose: Not Given Morphine Sulfate (Morphine) 4 mg IVP Q4 PRN PRN Reason: Pain, moderate (4-7) Last Admin: 05/09/17 12:05 Dose: 4 mg Nebivolol (Bystolic) 2.5 mg PO DAILY [facility] Last Admin: 05/11/17 10:21 Dose: 2.5 mg Nifedipine (Procardia Xl) 120 mg PO DAILY [facility] Last Admin: 05/11/17 10:21 Dose: 120 mg Ondansetron HCl (Zofran Inj) 4 mg IVP Q6H PRN PRN Reason: Nausea/Vomiting Pantoprazole Sodium (Protonix Inj) 40 mg IVP DAILY [facility] Last Admin: 05/11/17 10:20 Dose: 40 mg Topiramate (Topamax) 50 mg PO BID [facility] Last Admin: 05/11/17 19:00 Dose: 50 mg - Labs Labs: 05/11/17 07:33 05/11/17 07:33 - Head Exam Head Exam: ATRAUMATIC - Eye Exam Eye Exam: Normal appearance - ENT Exam ENT Exam: Mucous Membranes Dry - Respiratory Exam Respiratory Exam: NORMAL BREATHING PATTERN - Cardiovascular Exam Cardiovascular Exam: +S1, +S2 - GI/Abdominal Exam GI & Abdominal Exam: Normal Bowel Sounds Assessment and Plan (1) Anemia Assessment & Plan: anemia of chronic disease Status: Acute (2) Thrombocytopenia Assessment & Plan: mild ?infection related Status: Acute (3) Cholangiocarcinoma Assessment & Plan: outpatient surgery Status: Acute
--- NOTE | 2017-05-12 01:07 | CP.PCM.PN ---
<Saran Pimentel - Last Filed: 05/12/17 01:06> Subjective - Date & Time of Evaluation Date of Evaluation: 05/12/17 Time of Evaluation: 01:06 - Subjective Subjective: PGY-[address] James Rueda. No acute events noted overnight. No acute distress. Patient denies chest pain for the past 6 days. Denies SOB or LE edema. She is resting comfortably and offers no additional acute complaints. 12-point review of systems is otherwise negative. Objective - Vital Signs/Intake and Output Vital Signs (last 24 hours): Temp Pulse Resp BP Pulse Ox 97.8 F 65 20 160/70 H 98 05/11/17 15:00 05/11/17 15:00 05/11/17 15:00 05/11/17 15:00 05/11/17 15:00 Intake and Output: 05/11/17 05/12/17 18:59 06:59 Intake Total 980 980 Balance 980 980 - Medications Medications: Current Medications Clopidogrel Bisulfate (Plavix) 75 mg PO DAILY [facility] Last Admin: 05/11/17 10:20 Dose: 75 mg Dextrose (Dextrose 50% Inj) 0 ml IV STAT PRN; Protocol PRN Reason: Hypoglycemia Protocol Dextrose (Glutose 15) 0 gm PO ONCE PRN; Protocol PRN Reason: Hypoglycemia Protocol Glucagon (Glucagen Diagnostic Kit) 0 mg IM STAT PRN; Protocol PRN Reason: Hypoglycemia Protocol Hydralazine HCl (Apresoline) 10 mg IVP Q6H PRN PRN Reason: Systolic Blood Pressure Last Admin: 05/07/17 05:36 Dose: 10 mg Dextrose (Dextrose 5% In Water 1000 Ml) 1,000 mls @ 0 mls/hr IV .Q0M PRN; Protocol; Per Protocol PRN Reason: Hypoglycemia Protocol Sodium Bicarbonate 150 meq/ (Dextrose) 1,150 mls @ 60 mls/hr IV .[id number] [facility] Last Admin: 05/11/17 23:15 Dose: 60 mls/hr Meropenem 500 mg/ Sodium (Chloride) 100 mls @ 100 mls/hr IVPB Q12H [facility]ESS[facility] PRN Reason: Protocol Last Admin: 05/11/17 16:56 Dose: 100 mls/hr Insulin Human Regular (Novolin R) 0 unit SC ACHS [facility] PRN Reason: Protocol Last Admin: 05/11/17 21:28 Dose: Not Given Morphine Sulfate (Morphine) 4 mg IVP Q4 PRN PRN Reason: Pain, moderate (4-7) Last Admin: 05/09/17 12:05 Dose: 4 mg Nebivolol (Bystolic) 2.5 mg PO DAILY [facility] Last Admin: 05/11/17 10:21 Dose: 2.5 mg Nifedipine (Procardia Xl) 120 mg PO DAILY [facility] Last Admin: 05/11/17 10:21 Dose: 120 mg Ondansetron HCl (Zofran Inj) 4 mg IVP Q6H PRN PRN Reason: Nausea/Vomiting Pantoprazole Sodium (Protonix Inj) 40 mg IVP DAILY [facility] Last Admin: 05/11/17 10:20 Dose: 40 mg Topiramate (Topamax) 50 mg PO BID [facility] Last Admin: 05/11/17 19:00 Dose: 50 mg - Labs Labs: 05/11/17 07:33 05/11/17 07:33 - Additional Findings Additional findings: Head Exam Head Exam: ATRAUMATIC, NORMAL INSPECTION, NORMOCEPHALIC - Eye Exam Eye Exam: EOMI, Normal appearance - ENT Exam ENT Exam: Mucous Membranes Moist, Normal Exam - Neck Exam Neck Exam: Full ROM, Normal Inspection. absent: Tenderness, Thyromegaly - Respiratory Exam Respiratory Exam: Clear to Ausculation Bilateral, NORMAL BREATHING PATTERN. absent: Accessory Muscle Use, Chest Wall Tenderness - Cardiovascular Exam Cardiovascular Exam: REGULAR RHYTHM, +S1, +S2 - GI/Abdominal Exam GI & Abdominal Exam: Soft, Tenderness (right upper quadrant and right lower quadrant pain on light and deep palpation) Additional comments: no rebound, rigidity, no guarding - Extremities Exam Extremities Exam: Full ROM, Normal Capillary Refill, Normal Inspection. absent : Pedal Edema, Tenderness - Back Exam Back Exam: Full ROM, NORMAL INSPECTION. 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 Carter - help appreciated Surgery consulted - Dr. Hawley - hel appreciated - family states pt with OPDX surgery with Dr. Hawley GI consulted - Dr. Bills s/p ERCP with sphincterotomy, dilation and biliary stent placement on 04/04/1705/07 biliary stent removal and of insertion of new plastic stent Ct A/P (05/06/17): Metallic stent in CBD, with persistent residual moderate dilatation of CBD. Enlarged panc head w diffuse atrphty of body/tail concerning for carcinoma with biliary obstruction. Enlarged nodular liver. Solitary lesion in spleen no completely characterized on exam. CT Pancreas protocol scan (04/05/17) - Atrophy of the pancreatic body and tail with prominence of the pancreatic head, lesion surrounding/adjacent to the distal common duct cannot be excluded, endoscopic ultrasound may be helpful for further evaluation; enlarged cirrhotic liver with fatty infiltration; cholecystectomy; pneumobilia with biliary stent; inflammation and edema in the mary hepatis. Further recs per attending evaluation as per surgical team CT head/chest/neck (04/05/17) unremarkable for metastatic disease though studies are limited in the absence of IV contrast 2/2 CKD with JADE MRCP (03/31/17): showed moderately to markedly dilated proximal common bile duct with large filling defect noted in the distal common bile duct, which could represent multiple choledocholithiasis (differential consideration includes less likely distal CBD neoplasm or stricture). Also noted [id number] intrahepatic biliary ductal dilatation, cirrhosis with findings suggestive of portal hypertension including splenomegaly and trace ascites, and 6.3 millimeter cyst at the pancreatic head. - Common bile duct, stricture biopsy: Invasive adenocarcinoma, moderately differentiated 05/07 blood cultures positive for Klebsiella pneumonia 05/09 Blood cultures negative for growth AST/ALT 230/78, Alk Phos 438 on admission - elevated over last admission, but normalized by discharge CA 19-9 level: [address] Owens: Merrem 1 gm Q12H Aztreonam 1gm IVPB Q12H 05/10: Merrem 500 mg Q12H until 05/22/17 or Invanz 500 mg IV QD until 05/23/17 Hypertensive urgency Markedly elevated at admission; large pain component * Bystolic and nifedipine XL continued (home meds) * Hydralazine 10mg IV Q6H PRN for SBP > 160 Lipid panel noted from prior admission: Tri, Chol: 186, LDL: 97, HDL: 37 UTI, hematuria Pt denies dysuria, polyuria UA (05/06/17): mod bacteria, 2+ LE, 37 WBC 05/06 Urine cultures positive for Gram neg Rods E. Coli Zosyn 2.25 gm IV Q6H for empiric coverage Diastolic CHF (04/17/17): EF 55-60%, mod diastolic dysfxn. Moderate Pulm Htn. Trace pericardial effusion. Procardia XL 120mg PO daily, Bystolic 2.5 mg PO daily. CAD Plavix 75mg PO Daily CKD, Stage 4 Nephrology consult: Dr. Juárez -Not on dialysis at this time -UA shows protein -Baseline creatine 1-1.5, though on recent admission 2.2 -D5/NS @ 75cc/hr + NaBicarb 650mg PO TID -F/u Urine Sodium, Electrolytes, studies Metabolic Acidosis ABG: ph 7.27, CO2 17 -D5/NS @ 75cc/hr + NaBicarb 650mg PO TID Proteinuria 3+ protein in Urine Monitor Per Dr. Juárez, 24 hour urine collection ordered lasix was given due to fluid overload Anemia of chronic disease Baseline hemoglobin 10 Monitor AM labs Diabetes Mellitus * Accuchecks * Hypoglycemia protocol * A1C- 5.1 * Hold home metformin due to elevated Cr * Januvia 50mg PO Daily * ISS- low Prophylactic measure * GI PPX: Protonix 40mg IV daily * DVT PPX: SCDs, Lovenox 30mg SC Daily Patient to go to rehabilitation to finish course of antibiotics, consider discharge to rehabilitation center Wednesday 05/10: Merrem 500 mg Q12H until 05/22/17 or Invanz 500 mg IV QD until 05/23/17 <Cameron Rueda - Last Filed: 05/12/17 14:29> Objective - Vital Signs/Intake and Output Vital Signs (last 24 hours): Temp Pulse Resp BP Pulse Ox 98.0 F 64 20 182/52 H 99 05/12/17 08:17 05/12/17 08:17 05/12/17 08:17 05/12/17 08:17 05/12/17 08:17 Intake and Output: 05/12/17 05/12/17 06:59 18:59 Intake Total 1610 Balance 1610 - Medications Medications: Current Medications Clopidogrel Bisulfate (Plavix) 75 mg PO DAILY [facility] Last Admin: 05/12/17 09:28 Dose: 75 mg Dextrose (Dextrose 50% Inj) 0 ml IV STAT PRN; Protocol PRN Reason: Hypoglycemia Protocol Dextrose (Glutose 15) 0 gm PO ONCE PRN; Protocol PRN Reason: Hypoglycemia Protocol Glucagon (Glucagen Diagnostic Kit) 0 mg IM STAT PRN; Protocol PRN Reason: Hypoglycemia Protocol Hydralazine HCl (Apresoline) 10 mg IVP Q6H PRN PRN Reason: Systolic Blood Pressure Last Admin: 05/07/17 05:36 Dose: 10 mg Hydralazine HCl (Apresoline) 10 mg PO QID [facility] Last Admin: 05/12/17 13:51 Dose: 10 mg Dextrose (Dextrose 5% In Water 1000 Ml) 1,000 mls @ 0 mls/hr IV .Q0M PRN; Protocol; Per Protocol PRN Reason: Hypoglycemia Protocol Sodium Bicarbonate 150 meq/ (Dextrose) 1,150 mls @ 60 mls/hr IV .[id number] [facility] Last Admin: 05/12/17 02:50 Dose: Not Given Meropenem 500 mg/ Sodium (Chloride) 100 mls @ 100 mls/hr IVPB Q12H [facility] PRN Reason: Protocol Last Admin: 05/12/17 05:06 Dose: 100 mls/hr Insulin Human Regular (Novolin R) 0 unit SC ACHS [facility] PRN Reason: Protocol Last Admin: 05/12/17 12:54 Dose: Not Given Morphine Sulfate (Morphine) 4 mg IVP Q4 PRN PRN Reason: Pain, moderate (4-7) Last Admin: 05/09/17 12:05 Dose: 4 mg Nebivolol (Bystolic) 2.5 mg PO DAILY [facility] Last Admin: 05/12/17 09:28 Dose: 2.5 mg Nifedipine (Procardia Xl) 120 mg PO DAILY [facility] Last Admin: 05/12/17 09:29 Dose: 120 mg Ondansetron HCl (Zofran Inj) 4 mg IVP Q6H PRN PRN Reason: Nausea/Vomiting Pantoprazole Sodium (Protonix Inj) 40 mg IVP DAILY [facility] Last Admin: 05/12/17 09:28 Dose: 40 mg Saccharomyces Boulardii (Florastor) 250 mg PO BID JESSICA Topiramate (Topamax) 50 mg PO BID [facility] Last Admin: 05/12/17 09:29 Dose: 50 mg - Labs Labs: 05/12/17 06:37 05/12/17 06:37 Attending/Attestation - Attestation I have personally seen and examined this patient.: Yes I have fully participated in the care of the patient.: Yes I have reviewed all pertinent clinical information, including history, physical exam and plan: Yes Notes (Text): 05/12/17 14:08 Patient was seen and examined at 10:40 AM with RESPONDER Sarah Wilkes who helped to translate [place] Also on ROS: She has NO complaint upon FULL ROS Also on Exam: HEENT, Cardio, Resp, GI, Ext, and Neuro exams were unremarkable. Assessments: 1). Bacteremia Secondary to Klebsiella pneumoniae 05/07/17 Repeat Blood Culture 05/09/17 is negative to date When arrangements can be made for either home infusion vs. [facility] infusion vs. completion of antibiotic at [facility], then discharge patient on Invanz 500 mg IV through 05/23/17 Currently on Meropenem 500 mg IV Q12H If patient opts for infusion, then Medicine Team will have to get PICC Line placed. 2). UTI Secondary to E. coli 05/06/17 Repeat Urine Culture 05/09/17 shows Gram (+) Cocci Currently on Meropenem 500 mg IV Q12H 3). Hx Cholangiocarcinoma S/P Stent for Obstructive Jaundice/Transaminitis via ERCP 05/07/17 Surgery planning for Pancreaticoduodenectomy at later date: preferably after resolution of the treatment for Klebsiella bacteremia and E. coli UTI Follow up with Surgeon Dr. Hawley 4). Hx CKD Stage 4 with Acidosis Acidosis has resolved NO HD at this time as per Nephrology Dr. Juárez NeutraPhos 1 packet PO 1x/day D5 NaHCO3 150 mEQ @ 60 ml/hour 5). Hx DM 2 Novlin R ACHS 6). Hx HTN with Urgency NOT currently under control therefore Hydralazine 10 mg PO 4x/day was added 05/12 Bystolic 2.5 mg PO 1x/day (could not increase this because hear rate in the 60s) Procardia XL 120 mg PO 1x/day (this medication has been maxed out) Hydralazine 10 mg IV Q6H PRN SBP > 160 7). Hx Diastolic HF and CAD Bysolic 2.5 mg PO 1x/day Plavix 75 mg PO 1x/day Echocardiogram 04/17/17: EF estimated 55-60%, moderate diastolic dysfunction, moderate pulmonary HTN, trace pericardial effusion 8). Hx Anemia Likely Secondary to CKD Stable Hgb/Hct 9). Proteinuria She has CKD Stage 4 10). Thrombocytopenia This is likely secondary to the bactermia and UTI Remained stable Monitor 11). Prophylaxis Morphine 4 mg IV Q4H PRN Moderate Pain Zofran 4 mg IV Q6H PRN N/V Protonix 40 mg IV 1x/day Medicine Team please speak with Learning Program Manager concerning Assessment and Plan above Please check with family as to why patient is on Topamax? Cameron Rueda D.O. 05/12/17 14:28
[2017-05-12] MEDS: Sodium Bicarbonate 8.4% 150 MEQ in Dextrose 5% In Water 1,000 ML IV SCH ×2 (02:50→21:34)
[2017-05-12] MEDS: Meropenem 500 MG in Sodium Chloride 0.9% 100 ML IVPB SCH ×2 (05:06→17:18)
[2017-05-12 06:44] LABS: BASO % 0.6 % (0.0-2.0); EOS # 0.2 K/uL (0.0-0.7); EOS % 8.5 % (0.0-4.0); HEMOGLOBIN 8.2 g/dL (11.0-16.0); LYMPH # 1.2 K/uL (1.0-4.3); LYMPH % 45.3 % (20.0-40.0); MEAN CELL VOLUME 89.9 fL (81.0-99.0); MEAN CORPUSCULAR HEMOGLOBIN 31.6 pg (27.0-31.0); MEAN CORPUSCULAR HGB CONC 35.2 g/dL (33.0-37.0); MEAN PLATELET VOLUME 9.4 fL (7.2-11.7); MONO # 0.3 K/uL (0.0-0.8); MONO % 9.8 % (0.0-10.0); NEUT # 0.9 K/uL (1.8-7.0); NEUT % 35.8 % (50.0-75.0); RBC 2.59 Mil/uL (3.80-5.20); WHITE BLOOD COUNT 2.6 K/uL (4.8-10.8)
[2017-05-12 07:10] LABS: ALB/GLOB RATIO 0.6 (1.0-2.1); ALBUMIN 2.4 g/dL (3.5-5.0); CALCIUM 7.8 mg/dl (8.6-10.4)
[2017-05-12] MEDS: (Novolin R) Insulin Human Regular 100 units/ml vial SC SCH ×4 (07:45→21:53)
--- NOTE | 2017-05-12 08:41 | CP.PCM.PN ---
Subjective - Date & Time of Evaluation Date of Evaluation: 05/12/17 Time of Evaluation: 08:40 - Subjective Subjective: afebrile bp mildly elevated renal funtiom stable at creatinine around 2.2 up in room walking ROS no dizziness no sob or chest pain epigastric pain no vomiting no dysuria Objective - Vital Signs/Intake and Output Vital Signs (last 24 hours): Temp Pulse Resp BP Pulse Ox 98.0 F 64 20 182/52 H 99 05/12/17 08:17 05/12/17 08:17 05/12/17 08:17 05/12/17 08:17 05/12/17 08:17 Intake and Output: 05/12/17 05/12/17 06:59 18:59 Intake Total 1610 Balance 1610 - Medications Medications: Current Medications Clopidogrel Bisulfate (Plavix) 75 mg PO DAILY [facility] Last Admin: 05/11/17 10:20 Dose: 75 mg Dextrose (Dextrose 50% Inj) 0 ml IV STAT PRN; Protocol PRN Reason: Hypoglycemia Protocol Dextrose (Glutose 15) 0 gm PO ONCE PRN; Protocol PRN Reason: Hypoglycemia Protocol Glucagon (Glucagen Diagnostic Kit) 0 mg IM STAT PRN; Protocol PRN Reason: Hypoglycemia Protocol Hydralazine HCl (Apresoline) 10 mg IVP Q6H PRN PRN Reason: Systolic Blood Pressure Last Admin: 05/07/17 05:36 Dose: 10 mg Dextrose (Dextrose 5% In Water 1000 Ml) 1,000 mls @ 0 mls/hr IV .Q0M PRN; Protocol; Per Protocol PRN Reason: Hypoglycemia Protocol Sodium Bicarbonate 150 meq/ (Dextrose) 1,150 mls @ 60 mls/hr IV .[id number] [facility] Last Admin: 05/12/17 02:50 Dose: Not Given Meropenem 500 mg/ Sodium (Chloride) 100 mls @ 100 mls/hr IVPB Q12H [facility] PRN Reason: Protocol Last Admin: 05/12/17 05:06 Dose: 100 mls/hr Insulin Human Regular (Novolin R) 0 unit SC ACHS [facility] PRN Reason: Protocol Last Admin: 05/12/17 07:45 Dose: Not Given Morphine Sulfate (Morphine) 4 mg IVP Q4 PRN PRN Reason: Pain, moderate (4-7) Last Admin: 05/09/17 12:05 Dose: 4 mg Nebivolol (Bystolic) 2.5 mg PO DAILY [facility] Last Admin: 05/11/17 10:21 Dose: 2.5 mg Nifedipine (Procardia Xl) 120 mg PO DAILY [facility] Last Admin: 05/11/17 10:21 Dose: 120 mg Ondansetron HCl (Zofran Inj) 4 mg IVP Q6H PRN PRN Reason: Nausea/Vomiting Pantoprazole Sodium (Protonix Inj) 40 mg IVP DAILY [facility] Last Admin: 05/11/17 10:20 Dose: 40 mg Topiramate (Topamax) 50 mg PO BID [facility] Last Admin: 05/11/17 19:00 Dose: 50 mg - Labs Labs: 05/12/17 06:37 05/12/17 06:37 - Constitutional Appears: Well, No Acute Distress - ENT Exam ENT Exam: Mucous Membranes Moist - Respiratory Exam Respiratory Exam: Clear to Ausculation Bilateral - Cardiovascular Exam Cardiovascular Exam: REGULAR RHYTHM - GI/Abdominal Exam GI & Abdominal Exam: Distended, Soft Additional comments: tender epigastrium - Extremities Exam Extremities Exam: absent: Calf Tenderness - Back Exam Back Exam: absent: CVA tenderness (L), CVA tenderness (R) - Skin Skin Exam: Dry, Warm Assessment and Plan (1) Acute kidney injury Status: Acute (2) Biliary obstruction Status: Acute (3) Cholangiocarcinoma Status: Acute (4) Diabetes Status: Acute (5) HTN (hypertension) Status: Acute - Assessment and Plan (Free Text) Plan: will continue present iv for now follow chems closely
[2017-05-12] MEDS: NIFEdipine 60 mg ER Tab PO SCH (09:29)
[2017-05-12] MEDS: Saccharomyces Boulardi 250 mg Cap PO SCH (17:16)
--- NOTE | 2017-05-12 20:35 | CP.PCM.PN ---
Subjective - Date & Time of Evaluation Date of Evaluation: 05/12/17 Time of Evaluation: 16:25 - Subjective Subjective: Feeling better, ambulating Objective - Vital Signs/Intake and Output Vital Signs (last 24 hours): Temp Pulse Resp BP Pulse Ox 98.3 F 61 20 156/68 H 99 05/12/17 15:10 05/12/17 15:10 05/12/17 15:10 05/12/17 15:10 05/12/17 15:10 Intake and Output: 05/12/17 05/13/17 18:59 06:59 Intake Total 1210 Balance 1210 - Medications Medications: Current Medications Clopidogrel Bisulfate (Plavix) 75 mg PO DAILY [facility] Last Admin: 05/12/17 09:28 Dose: 75 mg Dextrose (Dextrose 50% Inj) 0 ml IV STAT PRN; Protocol PRN Reason: Hypoglycemia Protocol Dextrose (Glutose 15) 0 gm PO ONCE PRN; Protocol PRN Reason: Hypoglycemia Protocol Glucagon (Glucagen Diagnostic Kit) 0 mg IM STAT PRN; Protocol PRN Reason: Hypoglycemia Protocol Hydralazine HCl (Apresoline) 10 mg IVP Q6H PRN PRN Reason: Systolic Blood Pressure Last Admin: 05/12/17 15:03 Dose: 10 mg Hydralazine HCl (Apresoline) 10 mg PO QID [facility] Last Admin: 05/12/17 17:16 Dose: 10 mg Dextrose (Dextrose 5% In Water 1000 Ml) 1,000 mls @ 0 mls/hr IV .Q0M PRN; Protocol; Per Protocol PRN Reason: Hypoglycemia Protocol Sodium Bicarbonate 150 meq/ (Dextrose) 1,150 mls @ 60 mls/hr IV .[id number] [facility] Last Admin: 05/12/17 02:50 Dose: Not Given Meropenem 500 mg/ Sodium (Chloride) 100 mls @ 100 mls/hr IVPB Q12H [facility] PRN Reason: Protocol Last Admin: 05/12/17 17:18 Dose: 100 mls/hr Insulin Human Regular (Novolin R) 0 unit SC ACHS [facility] PRN Reason: Protocol Last Admin: 05/12/17 12:54 Dose: Not Given Morphine Sulfate (Morphine) 4 mg IVP Q4 PRN PRN Reason: Pain, moderate (4-7) Last Admin: 05/09/17 12:05 Dose: 4 mg Nebivolol (Bystolic) 2.5 mg PO DAILY [facility] Last Admin: 05/12/17 09:28 Dose: 2.5 mg Nifedipine (Procardia Xl) 120 mg PO DAILY [facility] Last Admin: 05/12/17 09:29 Dose: 120 mg Ondansetron HCl (Zofran Inj) 4 mg IVP Q6H PRN PRN Reason: Nausea/Vomiting Pantoprazole Sodium (Protonix Inj) 40 mg IVP DAILY [facility] Last Admin: 05/12/17 09:28 Dose: 40 mg Saccharomyces Boulardii (Florastor) 250 mg PO BID [facility] Last Admin: 05/12/17 17:16 Dose: 250 mg Topiramate (Topamax) 50 mg PO BID [facility] Last Admin: 05/12/17 09:29 Dose: 50 mg - Labs Labs: 05/12/17 06:37 05/12/17 06:37 - Head Exam Head Exam: ATRAUMATIC - Eye Exam Eye Exam: Normal appearance - ENT Exam ENT Exam: Mucous Membranes Dry - Respiratory Exam Respiratory Exam: NORMAL BREATHING PATTERN - Cardiovascular Exam Cardiovascular Exam: +S1, +S2 - GI/Abdominal Exam GI & Abdominal Exam: Normal Bowel Sounds Assessment and Plan (1) Anemia Assessment & Plan: chronic disease Status: Acute (2) Thrombocytopenia Assessment & Plan: improved secondary to infection Status: Acute (3) Cholangiocarcinoma Assessment & Plan: outpatient surgery Status: Acute
--- NOTE | 2017-05-13 02:02 | CP.PCM.PN ---
Subjective - Date & Time of Evaluation Date of Evaluation: 05/13/17 Time of Evaluation: 01:59 - Subjective Subjective: PGY-[address] James Zapata No acute events noted overnight. No acute distress. Patient denies chest pain for the past 6 days. Denies SOB or LE edema. She is resting comfortably and offers no additional acute complaints. 12-point review of systems is otherwise negative. Objective - Vital Signs/Intake and Output Vital Signs (last 24 hours): Temp Pulse Resp BP Pulse Ox 98.1 F 60 20 169/80 H 100 05/12/17 23:37 05/12/17 23:37 05/12/17 23:37 05/12/17 23:37 05/12/17 23:37 Intake and Output: 05/12/17 05/13/17 18:59 06:59 Intake Total 1210 820 Balance 1210 820 - Medications Medications: Current Medications Clopidogrel Bisulfate (Plavix) 75 mg PO DAILY [facility] Last Admin: 05/12/17 09:28 Dose: 75 mg Dextrose (Dextrose 50% Inj) 0 ml IV STAT PRN; Protocol PRN Reason: Hypoglycemia Protocol Dextrose (Glutose 15) 0 gm PO ONCE PRN; Protocol PRN Reason: Hypoglycemia Protocol Glucagon (Glucagen Diagnostic Kit) 0 mg IM STAT PRN; Protocol PRN Reason: Hypoglycemia Protocol Hydralazine HCl (Apresoline) 10 mg IVP Q6H PRN PRN Reason: Systolic Blood Pressure Last Admin: 05/12/17 15:03 Dose: 10 mg Hydralazine HCl (Apresoline) 10 mg PO QID [facility] Last Admin: 05/12/17 21:32 Dose: 10 mg Dextrose (Dextrose 5% In Water 1000 Ml) 1,000 mls @ 0 mls/hr IV .Q0M PRN; Protocol; Per Protocol PRN Reason: Hypoglycemia Protocol Sodium Bicarbonate 150 meq/ (Dextrose) 1,150 mls @ 60 mls/hr IV .[id number] [facility] Last Admin: 05/12/17 21:34 Dose: 60 mls/hr Meropenem 500 mg/ Sodium (Chloride) 100 mls @ 100 mls/hr IVPB Q12H [facility] PRN Reason: Protocol Last Admin: 05/12/17 17:18 Dose: 100 mls/hr Insulin Human Regular (Novolin R) 0 unit SC ACHS [facility] PRN Reason: Protocol Last Admin: 05/12/17 21:53 Dose: Not Given Morphine Sulfate (Morphine) 4 mg IVP Q4 PRN PRN Reason: Pain, moderate (4-7) Last Admin: 05/09/17 12:05 Dose: 4 mg Nebivolol (Bystolic) 2.5 mg PO DAILY [facility] Last Admin: 05/12/17 09:28 Dose: 2.5 mg Nifedipine (Procardia Xl) 120 mg PO DAILY [facility] Last Admin: 05/12/17 09:29 Dose: 120 mg Ondansetron HCl (Zofran Inj) 4 mg IVP Q6H PRN PRN Reason: Nausea/Vomiting Pantoprazole Sodium (Protonix Inj) 40 mg IVP DAILY [facility] Last Admin: 05/12/17 09:28 Dose: 40 mg Saccharomyces Boulardii (Florastor) 250 mg PO BID [facility] Last Admin: 05/12/17 17:16 Dose: 250 mg Topiramate (Topamax) 50 mg PO BID [facility] Last Admin: 05/12/17 18:00 Dose: 50 mg - Labs Labs: 05/12/17 06:37 05/12/17 06:37 - Additional Findings Additional findings: Head Exam Head Exam: ATRAUMATIC, NORMAL INSPECTION, NORMOCEPHALIC - Eye Exam Eye Exam: EOMI, Normal appearance - ENT Exam ENT Exam: Mucous Membranes Moist, Normal Exam - Neck Exam Neck Exam: Full ROM, Normal Inspection. absent: Tenderness, Thyromegaly - Respiratory Exam Respiratory Exam: Clear to Ausculation Bilateral, NORMAL BREATHING PATTERN. absent: Accessory Muscle Use, Chest Wall Tenderness - Cardiovascular Exam Cardiovascular Exam: REGULAR RHYTHM, +S1, +S2 - GI/Abdominal Exam GI & Abdominal Exam: Soft, Tenderness (right upper quadrant and right lower quadrant pain on light and deep palpation) Additional comments: no rebound, rigidity, no guarding - Extremities Exam Extremities Exam: Full ROM, Normal Capillary Refill, Normal Inspection. absent : Pedal Edema, Tenderness - Back Exam Back Exam: Full ROM, NORMAL INSPECTION. absent: paraspinal tenderness - Neurological Exam Neurological Exam: Alert, Awake, CN II-XII Intact
[2017-05-13] MEDS: Meropenem 500 MG in Sodium Chloride 0.9% 100 ML IVPB SCH ×2 (05:51→17:09)
[2017-05-13] MEDS: (Novolin R) Insulin Human Regular 100 units/ml vial SC SCH ×4 (07:46→22:08)
[2017-05-13] MEDS: Morphine 4 MG/ML VIAL IVP PRN (07:58)
[2017-05-13 08:19] LABS: BASO % 0.6 % (0.0-2.0); EOS # 0.3 K/uL (0.0-0.7); EOS % 6.9 % (0.0-4.0); HEMOGLOBIN 8.9 g/dL (11.0-16.0); LYMPH # 1.8 K/uL (1.0-4.3); LYMPH % 46.4 % (20.0-40.0); MEAN CELL VOLUME 89.9 fL (81.0-99.0); MEAN CORPUSCULAR HEMOGLOBIN 30.8 pg (27.0-31.0); MEAN CORPUSCULAR HGB CONC 34.2 g/dL (33.0-37.0); MEAN PLATELET VOLUME 9.5 fL (7.2-11.7); MONO # 0.3 K/uL (0.0-0.8); NEUT # 1.5 K/uL (1.8-7.0); NEUT % 38.1 % (50.0-75.0); RBC 2.9 Mil/uL (3.80-5.20); WHITE BLOOD COUNT 3.9 K/uL (4.8-10.8)
[2017-05-13 08:46] LABS: ALB/GLOB RATIO 0.6 (1.0-2.1); ALBUMIN 2.6 g/dL (3.5-5.0); CALCIUM 7.7 mg/dl (8.6-10.4)
[2017-05-13] MEDS: NIFEdipine 60 mg ER Tab PO SCH (09:19)
[2017-05-13] MEDS: Saccharomyces Boulardi 250 mg Cap PO SCH ×2 (09:19→17:07)
--- NOTE | 2017-05-13 10:22 | CP.PCM.PN ---
<YoliJohnniepaolo - Last Filed: 05/13/17 19:57> Subjective - Date & Time of Evaluation Date of Evaluation: 05/13/17 Time of Evaluation: 10:05 - Subjective Subjective: PGY Medicine Note- Dr. Zapata's service Patient seen and examined bedside. Patient's blood pressure was elevated earlier in the morning per nursing. Patient also apparently vomiting as well. Patient did not have much of an appetite. She admitted to abdominal pain rated a 6-7 off and on with palpation. She denied headaches, chest pain pain or palpitations at this time. Objective - Vital Signs/Intake and Output Vital Signs (last 24 hours): Temp Pulse Resp BP Pulse Ox 98.2 F 60 20 209/80 H 98 05/13/17 08:23 05/13/17 08:23 05/13/17 08:23 05/13/17 08:23 05/13/17 08:23 Intake and Output: 05/13/17 05/13/17 06:59 18:59 Intake Total 820 Balance 820 - Medications Medications: Current Medications Clopidogrel Bisulfate (Plavix) 75 mg PO DAILY [facility] Last Admin: 05/13/17 09:19 Dose: 75 mg Dextrose (Dextrose 50% Inj) 0 ml IV STAT PRN; Protocol PRN Reason: Hypoglycemia Protocol Dextrose (Glutose 15) 0 gm PO ONCE PRN; Protocol PRN Reason: Hypoglycemia Protocol Glucagon (Glucagen Diagnostic Kit) 0 mg IM STAT PRN; Protocol PRN Reason: Hypoglycemia Protocol Hydralazine HCl (Apresoline) 10 mg IVP Q6H PRN PRN Reason: Systolic Blood Pressure Last Admin: 05/13/17 07:50 Dose: 10 mg Hydralazine HCl (Apresoline) 10 mg PO QID [facility] Last Admin: 05/13/17 09:22 Dose: 10 mg Dextrose (Dextrose 5% In Water 1000 Ml) 1,000 mls @ 0 mls/hr IV .Q0M PRN; Protocol; Per Protocol PRN Reason: Hypoglycemia Protocol Sodium Bicarbonate 150 meq/ (Dextrose) 1,150 mls @ 60 mls/hr IV .[id number] [facility] Last Admin: 05/12/17 21:34 Dose: 60 mls/hr Meropenem 500 mg/ Sodium (Chloride) 100 mls @ 100 mls/hr IVPB Q12H [facility] PRN Reason: Protocol Last Admin: 05/13/17 05:51 Dose: 100 mls/hr Insulin Human Regular (Novolin R) 0 unit SC ACHS [facility] PRN Reason: Protocol Last Admin: 05/13/17 07:46 Dose: Not Given Morphine Sulfate (Morphine) 4 mg IVP Q4 PRN PRN Reason: Pain, moderate (4-7) Last Admin: 05/13/17 07:58 Dose: 4 mg Nebivolol (Bystolic) 2.5 mg PO DAILY [facility] Last Admin: 05/13/17 09:19 Dose: 2.5 mg Nifedipine (Procardia Xl) 120 mg PO DAILY [facility] Last Admin: 05/13/17 09:19 Dose: 120 mg Ondansetron HCl (Zofran Inj) 4 mg IVP Q6H PRN PRN Reason: Nausea/Vomiting Last Admin: 05/13/17 09:27 Dose: 4 mg Pantoprazole Sodium (Protonix Inj) 40 mg IVP DAILY [facility] Last Admin: 05/13/17 09:20 Dose: 40 mg Saccharomyces Boulardii (Florastor) 250 mg PO BID [facility] Last Admin: 05/13/17 09:19 Dose: 250 mg Topiramate (Topamax) 50 mg PO BID [facility] Last Admin: 05/13/17 09:20 Dose: 50 mg - Labs Labs: 05/13/17 07:56 05/13/17 07:56 - Constitutional Appears: Non-toxic, No Acute Distress - Head Exam Head Exam: ATRAUMATIC, NORMAL INSPECTION - Eye Exam Eye Exam: EOMI Pupil Exam: NORMAL ACCOMODATION - ENT Exam ENT Exam: Mucous Membranes Moist - Neck Exam Neck Exam: Full ROM - Respiratory Exam Respiratory Exam: NORMAL BREATHING PATTERN. absent: Wheezes - Cardiovascular Exam Cardiovascular Exam: +S1, +S2 - GI/Abdominal Exam GI & Abdominal Exam: Soft, Tenderness (RUQ), Normal Bowel Sounds - Extremities Exam Extremities Exam: Full ROM, Normal Capillary Refill - Back Exam Back Exam: Full ROM - Neurological Exam Neurological Exam: Alert, Awake, Oriented x3 - Psychiatric Exam Psychiatric exam: Normal Affect, Normal Mood - Skin Skin Exam: Dry, Warm Assessment and Plan - Assessment and Plan (Free Text) Assessment: 1). Bacteremia Secondary to Klebsiella pneumoniae 05/07/17 Repeat Blood Culture 05/09/17 is negative to date Will need to figure out antibiotic therapy planning once patient is optimized for discharge- Considerations for [facility] infusion center vs. [facility]. Following, patient can continue Invanz 500 mg IV through 05/23/17 Currently on Meropenem 500 mg IV Q12H If patient opts for infusion, then Medicine Team will have to get PICC Line placed. 2). UTI Secondary to E. coli 05/06/17 Repeat Urine Culture 05/09/17 shows Gram (+) Cocci Currently on Meropenem 500 mg IV Q12H 3). Hx Cholangiocarcinoma S/P Stent for Obstructive Jaundice/Transaminitis via ERCP 05/07/17 Surgery planning for Pancreaticoduodenectomy at later undetermined date:after bacteremia and UTI resolve. Will need to touch base with surgery team nearer to then for planning. 4). Hx CKD Stage 4 with Acidosis Acidosis has resolved NO HD at this time as per Nephrology Dr. Juárez NeutraPhos 1 packet PO 1x/day D5 NaHCO3 150 mEQ @ 60 ml/hour- discontinued Monitor 5). Hx DM 2 ISS Diet Management warranted Monitor Accuchecks 6). Hx HTN with Urgency NOT currently under control therefore Hydralazine 10 mg PO 4x/day was added 05/12 Bystolic 2.5 mg PO 1x/day (could not increase this because hear rate in the 60s) Procardia XL 120 mg PO 1x/day (this medication has been maxed out) Hydralazine 10 mg IV Q6H PRN SBP > 160 Prior D5 solution with bicarb may have elevated pressures- This has since been discontinued. 7). Hx Diastolic HF and CAD Bystolic 2.5 mg PO 1x/day Plavix 75 mg PO 1x/day Echocardiogram 04/17/17: EF estimated 55-60%, moderate diastolic dysfunction, moderate pulmonary HTN, trace pericardial effusion 8). Hx Anemia Likely Secondary to CKD Stable Continue to monitor 9). Proteinuria CKD Stage 4 F/U Nephrology recommendations 10). Thrombocytopenia Likely secondary to bacteremia and UTI Improved, stable Monitor 11). Prophylaxis Morphine 4 mg IV Q4H PRN Moderate Pain Zofran 4 mg IV Q6H PRN N/V Protonix 40 mg IV 1x/day Will need to follow up with Case Management team for discharge planning once bacteremia resolves. Yoli, PGY 2 <Brad Zapata H - Last Filed: 04/02/18 07:29> Objective - Vital Signs/Intake and Output Vital Signs (last 24 hours): Temp Pulse Resp BP Pulse Ox 98.2 F 60 20 151/68 H 97 05/14/17 00:00 05/14/17 00:00 05/14/17 00:00 05/14/17 00:00 05/14/17 00:00 Intake and Output: 05/14/17 05/14/17 06:59 18:59 Intake Total 780 Balance 780 - Medications Medications: Current Medications Clopidogrel Bisulfate (Plavix) 75 mg PO DAILY [facility] Last Admin: 05/13/17 09:19 Dose: 75 mg Dextrose (Dextrose 50% Inj) 0 ml IV STAT PRN; Protocol PRN Reason: Hypoglycemia Protocol Dextrose (Glutose 15) 0 gm PO ONCE PRN; Protocol PRN Reason: Hypoglycemia Protocol Glucagon (Glucagen Diagnostic Kit) 0 mg IM STAT PRN; Protocol PRN Reason: Hypoglycemia Protocol Hydralazine HCl (Apresoline) 10 mg IVP Q6H PRN PRN Reason: Systolic Blood Pressure Last Admin: 05/13/17 07:50 Dose: 10 mg Hydralazine HCl (Apresoline) 10 mg PO QID [facility] Last Admin: 05/13/17 21:50 Dose: 10 mg Dextrose (Dextrose 5% In Water 1000 Ml) 1,000 mls @ 0 mls/hr IV .Q0M PRN; Protocol; Per Protocol PRN Reason: Hypoglycemia Protocol Meropenem 500 mg/ Sodium (Chloride) 100 mls @ 100 mls/hr IVPB Q12H [facility] PRN Reason: Protocol Last Admin: 05/14/17 05:22 Dose: 100 mls/hr Insulin Human Regular (Novolin R) 0 unit SC ACHS [facility] PRN Reason: Protocol Last Admin: 05/13/17 22:08 Dose: Not Given Morphine Sulfate (Morphine) 4 mg IVP Q4 PRN PRN Reason: Pain, moderate (4-7) Last Admin: 05/13/17 07:58 Dose: 4 mg Nebivolol (Bystolic) 2.5 mg PO DAILY [facility] Last Admin: 05/13/17 09:19 Dose: 2.5 mg Nifedipine (Procardia Xl) 120 mg PO DAILY [facility] Last Admin: 05/13/17 09:19 Dose: 120 mg Ondansetron HCl (Zofran Inj) 4 mg IVP Q6H PRN PRN Reason: Nausea/Vomiting Last Admin: 05/13/17 09:27 Dose: 4 mg Pantoprazole Sodium (Protonix Inj) 40 mg IVP DAILY [facility] Last Admin: 05/13/17 09:20 Dose: 40 mg Saccharomyces Boulardii (Florastor) 250 mg PO BID [facility] Last Admin: 05/13/17 17:07 Dose: 250 mg Topiramate (Topamax) 50 mg PO BID [facility] Last Admin: 05/13/17 17:08 Dose: 50 mg - Labs Labs: 05/14/17 06:02 05/13/17 07:56 Attending/Attestation - Attestation I have personally seen and examined this patient.: Yes I have fully participated in the care of the patient.: Yes I have reviewed all pertinent clinical information, including history, physical exam and plan: Yes Notes (Text): Medical attending: Patient was seen and examined by me. Agree with the above note by the resident. The patient is known to me from previous admission as well as last week when I last saw her. Since then she has been on IV abx and being treated for a UTI. She is pending surgery for the choleagiocarcinoma this May 18 however it appears this will have to be on hold until this current infection clears up. She had + Klebesilla on and the repeat on 05/09 was negative thank you Brad Zapata 05/14/17 07:28
--- NOTE | 2017-05-13 15:43 | CP.PCM.PN ---
Subjective - Date & Time of Evaluation Date of Evaluation: 05/13/17 Time of Evaluation: 02:50 - Subjective Subjective: dictated Objective - Vital Signs/Intake and Output Vital Signs (last 24 hours): Temp Pulse Resp BP Pulse Ox 97.8 F 75 20 162/65 H 98 05/13/17 08:55 05/13/17 08:55 05/13/17 08:23 05/13/17 08:55 05/13/17 08:23 Intake and Output: 05/13/17 05/13/17 06:59 18:59 Intake Total 820 1100 Balance 820 1100 - Medications Medications: Current Medications Clopidogrel Bisulfate (Plavix) 75 mg PO DAILY [facility] Last Admin: 05/13/17 09:19 Dose: 75 mg Dextrose (Dextrose 50% Inj) 0 ml IV STAT PRN; Protocol PRN Reason: Hypoglycemia Protocol Dextrose (Glutose 15) 0 gm PO ONCE PRN; Protocol PRN Reason: Hypoglycemia Protocol Glucagon (Glucagen Diagnostic Kit) 0 mg IM STAT PRN; Protocol PRN Reason: Hypoglycemia Protocol Hydralazine HCl (Apresoline) 10 mg IVP Q6H PRN PRN Reason: Systolic Blood Pressure Last Admin: 05/13/17 07:50 Dose: 10 mg Hydralazine HCl (Apresoline) 10 mg PO QID [facility] Last Admin: 05/13/17 13:50 Dose: 10 mg Dextrose (Dextrose 5% In Water 1000 Ml) 1,000 mls @ 0 mls/hr IV .Q0M PRN; Protocol; Per Protocol PRN Reason: Hypoglycemia Protocol Meropenem 500 mg/ Sodium (Chloride) 100 mls @ 100 mls/hr IVPB Q12H [facility] PRN Reason: Protocol Last Admin: 05/13/17 05:51 Dose: 100 mls/hr Insulin Human Regular (Novolin R) 0 unit SC ACHS [facility] PRN Reason: Protocol Last Admin: 05/13/17 11:58 Dose: 1 unit Morphine Sulfate (Morphine) 4 mg IVP Q4 PRN PRN Reason: Pain, moderate (4-7) Last Admin: 05/13/17 07:58 Dose: 4 mg Nebivolol (Bystolic) 2.5 mg PO DAILY [facility] Last Admin: 05/13/17 09:19 Dose: 2.5 mg Nifedipine (Procardia Xl) 120 mg PO DAILY [facility] Last Admin: 05/13/17 09:19 Dose: 120 mg Ondansetron HCl (Zofran Inj) 4 mg IVP Q6H PRN PRN Reason: Nausea/Vomiting Last Admin: 05/13/17 09:27 Dose: 4 mg Pantoprazole Sodium (Protonix Inj) 40 mg IVP DAILY [facility] Last Admin: 05/13/17 09:20 Dose: 40 mg Saccharomyces Boulardii (Florastor) 250 mg PO BID [facility] Last Admin: 05/13/17 09:19 Dose: 250 mg Topiramate (Topamax) 50 mg PO BID [facility] Last Admin: 05/13/17 09:20 Dose: 50 mg - Labs Labs: 05/13/17 07:56 05/13/17 07:56
--- NOTE | 2017-05-13 21:45 | PN ---
DATE: SUBJECTIVE: The patient was seen today. She remains afebrile. Nurse had called me yesterday about the positive blood culture but this was blood culture from 05/07/2017; 05/09/2017 has been negative for 4 days. I will reconfirm this tomorrow with the micro lab. She is feeling better. She denies much pain and has no nausea, no vomiting. Her appetite is improving. PHYSICAL EXAMINATION: VITAL SIGNS: T-max is 97.3, pulse 58, blood pressure 132/62, respirations are 20. She appears to be improving. HEENT: Head is atraumatic, normocephalic. Pallor present. Tongue is moist. NECK: Supple. LUNGS: Clear. No crackles or rales present. HEART: S1 and S2 is regular. ABDOMEN: Has minimal right upper quadrant tenderness, has improved. Bowel sounds are present. Has a right arm PICC line. EXTREMITIES: Have no edema. Her cultures were positive from 05/07 which was Klebsiella and the urine was E. coli, but the urine now has less than 10,000 GPCs, and the blood culture from 05/09/2017 is negative for 4 days. The patient has received meropenem 6 days right now, and she will need 8 more days of meropenem from tomorrow. She has a PICC line. We will see if she can get that. OTHERWISE, SHE IS ALLERGIC TO CIPRO. I see it is sensitive to cefepime. We will see if she could be sent home on meropenem. If she continues to improve, maybe we can send her on Vantin 200 b.i.d. We will discuss the plan with the primary tomorrow. White count is 3.9, hemoglobin is 8.9, hematocrit 26.1, platelet count is 173. Because this Klebsiella was not ESBL positive, hence maybe sensitive to Vantin and E. coli in the urine was also ESBL negative, but the patient does have pancreatic cancer and is status post new stent and is clinically improving at this time. Licha Owens MD
--- NOTE | 2017-05-13 23:45 | CP.PCM.PN ---
Subjective - Date & Time of Evaluation Date of Evaluation: 05/12/17 Time of Evaluation: 09:30 - Subjective Subjective: Patient seen and evaluated Lying down comfortably Not in distress Objective - Vital Signs/Intake and Output Vital Signs (last 24 hours): Temp Pulse Resp BP Pulse Ox 97.3 F L 58 L 20 132/62 95 05/13/17 15:00 05/13/17 15:00 05/13/17 15:00 05/13/17 15:00 05/13/17 15:00 Intake and Output: 05/13/17 05/14/17 18:59 06:59 Intake Total 1100 780 Balance 1100 780 - Medications Medications: Current Medications Clopidogrel Bisulfate (Plavix) 75 mg PO DAILY [facility] Last Admin: 05/13/17 09:19 Dose: 75 mg Dextrose (Dextrose 50% Inj) 0 ml IV STAT PRN; Protocol PRN Reason: Hypoglycemia Protocol Dextrose (Glutose 15) 0 gm PO ONCE PRN; Protocol PRN Reason: Hypoglycemia Protocol Glucagon (Glucagen Diagnostic Kit) 0 mg IM STAT PRN; Protocol PRN Reason: Hypoglycemia Protocol Hydralazine HCl (Apresoline) 10 mg IVP Q6H PRN PRN Reason: Systolic Blood Pressure Last Admin: 05/13/17 07:50 Dose: 10 mg Hydralazine HCl (Apresoline) 10 mg PO QID [facility] Last Admin: 05/13/17 21:50 Dose: 10 mg Dextrose (Dextrose 5% In Water 1000 Ml) 1,000 mls @ 0 mls/hr IV .Q0M PRN; Protocol; Per Protocol PRN Reason: Hypoglycemia Protocol Meropenem 500 mg/ Sodium (Chloride) 100 mls @ 100 mls/hr IVPB Q12H [facility] PRN Reason: Protocol Last Admin: 05/13/17 17:09 Dose: 100 mls/hr Insulin Human Regular (Novolin R) 0 unit SC ACHS [facility] PRN Reason: Protocol Last Admin: 05/13/17 22:08 Dose: Not Given Morphine Sulfate (Morphine) 4 mg IVP Q4 PRN PRN Reason: Pain, moderate (4-7) Last Admin: 05/13/17 07:58 Dose: 4 mg Nebivolol (Bystolic) 2.5 mg PO DAILY [facility] Last Admin: 05/13/17 09:19 Dose: 2.5 mg Nifedipine (Procardia Xl) 120 mg PO DAILY [facility] Last Admin: 05/13/17 09:19 Dose: 120 mg Ondansetron HCl (Zofran Inj) 4 mg IVP Q6H PRN PRN Reason: Nausea/Vomiting Last Admin: 05/13/17 09:27 Dose: 4 mg Pantoprazole Sodium (Protonix Inj) 40 mg IVP DAILY [facility] Last Admin: 05/13/17 09:20 Dose: 40 mg Saccharomyces Boulardii (Florastor) 250 mg PO BID [facility] Last Admin: 05/13/17 17:07 Dose: 250 mg Topiramate (Topamax) 50 mg PO BID [facility] Last Admin: 05/13/17 17:08 Dose: 50 mg - Labs Labs: 05/13/17 07:56 05/13/17 07:56
--- NOTE | 2017-05-13 23:46 | CP.PCM.PN ---
Subjective - Date & Time of Evaluation Date of Evaluation: 05/13/17 Time of Evaluation: 19:45 - Subjective Subjective: Patient seen and evaluated Denies chest pain and dyspnea Objective - Vital Signs/Intake and Output Vital Signs (last 24 hours): Temp Pulse Resp BP Pulse Ox 97.3 F L 58 L 20 132/62 95 05/13/17 15:00 05/13/17 15:00 05/13/17 15:00 05/13/17 15:00 05/13/17 15:00 Intake and Output: 05/13/17 05/14/17 18:59 06:59 Intake Total 1100 780 Balance 1100 780 - Medications Medications: Current Medications Clopidogrel Bisulfate (Plavix) 75 mg PO DAILY [facility] Last Admin: 05/13/17 09:19 Dose: 75 mg Dextrose (Dextrose 50% Inj) 0 ml IV STAT PRN; Protocol PRN Reason: Hypoglycemia Protocol Dextrose (Glutose 15) 0 gm PO ONCE PRN; Protocol PRN Reason: Hypoglycemia Protocol Glucagon (Glucagen Diagnostic Kit) 0 mg IM STAT PRN; Protocol PRN Reason: Hypoglycemia Protocol Hydralazine HCl (Apresoline) 10 mg IVP Q6H PRN PRN Reason: Systolic Blood Pressure Last Admin: 05/13/17 07:50 Dose: 10 mg Hydralazine HCl (Apresoline) 10 mg PO QID [facility] Last Admin: 05/13/17 21:50 Dose: 10 mg Dextrose (Dextrose 5% In Water 1000 Ml) 1,000 mls @ 0 mls/hr IV .Q0M PRN; Protocol; Per Protocol PRN Reason: Hypoglycemia Protocol Meropenem 500 mg/ Sodium (Chloride) 100 mls @ 100 mls/hr IVPB Q12H [facility] PRN Reason: Protocol Last Admin: 05/13/17 17:09 Dose: 100 mls/hr Insulin Human Regular (Novolin R) 0 unit SC ACHS [facility] PRN Reason: Protocol Last Admin: 05/13/17 22:08 Dose: Not Given Morphine Sulfate (Morphine) 4 mg IVP Q4 PRN PRN Reason: Pain, moderate (4-7) Last Admin: 05/13/17 07:58 Dose: 4 mg Nebivolol (Bystolic) 2.5 mg PO DAILY [facility] Last Admin: 05/13/17 09:19 Dose: 2.5 mg Nifedipine (Procardia Xl) 120 mg PO DAILY [facility] Last Admin: 05/13/17 09:19 Dose: 120 mg Ondansetron HCl (Zofran Inj) 4 mg IVP Q6H PRN PRN Reason: Nausea/Vomiting Last Admin: 05/13/17 09:27 Dose: 4 mg Pantoprazole Sodium (Protonix Inj) 40 mg IVP DAILY [facility] Last Admin: 05/13/17 09:20 Dose: 40 mg Saccharomyces Boulardii (Florastor) 250 mg PO BID [facility] Last Admin: 05/13/17 17:07 Dose: 250 mg Topiramate (Topamax) 50 mg PO BID [facility] Last Admin: 05/13/17 17:08 Dose: 50 mg - Labs Labs: 05/13/17 07:56 05/13/17 07:56
[2017-05-14] MEDS: Meropenem 500 MG in Sodium Chloride 0.9% 100 ML IVPB SCH ×2 (05:22→16:53)
[2017-05-14 06:09] LABS: BASO % 0.7 % (0.0-2.0); EOS # 0.2 K/uL (0.0-0.7); EOS % 6.4 % (0.0-4.0); HEMOGLOBIN 7.8 g/dL (11.0-16.0); LYMPH # 1.4 K/uL (1.0-4.3); LYMPH % 42.3 % (20.0-40.0); MEAN CELL VOLUME 89.6 fL (81.0-99.0); MEAN CORPUSCULAR HEMOGLOBIN 30.8 pg (27.0-31.0); MEAN CORPUSCULAR HGB CONC 34.4 g/dL (33.0-37.0); MEAN PLATELET VOLUME 8.6 fL (7.2-11.7); MONO # 0.2 K/uL (0.0-0.8); MONO % 6.3 % (0.0-10.0); NEUT # 1.5 K/uL (1.8-7.0); NEUT % 44.3 % (50.0-75.0); RBC 2.52 Mil/uL (3.80-5.20); RED CELL DISTRIBUTION WIDTH 15.1 % (11.5-14.5); WHITE BLOOD COUNT 3.4 K/uL (4.8-10.8)
[2017-05-14 07:25] LABS: ALB/GLOB RATIO 0.6 (1.0-2.1); ALBUMIN 2.3 g/dL (3.5-5.0); CALCIUM 7.6 mg/dl (8.6-10.4)
[2017-05-14] MEDS: (Novolin R) Insulin Human Regular 100 units/ml vial SC SCH ×4 (07:52→22:21)
[2017-05-14] MEDS ORDERED: Potassium Chloride 20 mEq ER Tab PO ONE ×2 (09:39→11:45)
--- NOTE | 2017-05-14 11:41 | CP.PCM.PN ---
Subjective - Date & Time of Evaluation Date of Evaluation: 05/14/17 Time of Evaluation: 11:38 - Subjective Subjective: Still with abdominal pains Nauseated at times, vomits infrequently On treatment for bacteremia creat decreased to 2.0; met. acidosis better - off bicarb now HTN controlled- hydralazine was added Objective - Vital Signs/Intake and Output Vital Signs (last 24 hours): Temp Pulse Resp BP Pulse Ox 98.4 F 69 20 152/71 H 99 05/14/17 07:46 05/14/17 07:46 05/14/17 07:46 05/14/17 07:46 05/14/17 07:46 Intake and Output: 05/14/17 05/14/17 06:59 18:59 Intake Total 780 Balance 780 - Medications Medications: Current Medications Clopidogrel Bisulfate (Plavix) 75 mg PO DAILY [facility] Last Admin: 05/13/17 09:19 Dose: 75 mg Dextrose (Dextrose 50% Inj) 0 ml IV STAT PRN; Protocol PRN Reason: Hypoglycemia Protocol Dextrose (Glutose 15) 0 gm PO ONCE PRN; Protocol PRN Reason: Hypoglycemia Protocol Glucagon (Glucagen Diagnostic Kit) 0 mg IM STAT PRN; Protocol PRN Reason: Hypoglycemia Protocol Hydralazine HCl (Apresoline) 10 mg IVP Q6H PRN PRN Reason: Systolic Blood Pressure Last Admin: 05/13/17 07:50 Dose: 10 mg Hydralazine HCl (Apresoline) 10 mg PO QID [facility] Last Admin: 05/13/17 21:50 Dose: 10 mg Dextrose (Dextrose 5% In Water 1000 Ml) 1,000 mls @ 0 mls/hr IV .Q0M PRN; Protocol; Per Protocol PRN Reason: Hypoglycemia Protocol Meropenem 500 mg/ Sodium (Chloride) 100 mls @ 100 mls/hr IVPB Q12H [facility] PRN Reason: Protocol Last Admin: 05/14/17 05:22 Dose: 100 mls/hr Insulin Human Regular (Novolin R) 0 unit SC ACHS [facility] PRN Reason: Protocol Last Admin: 05/14/17 07:52 Dose: Not Given Morphine Sulfate (Morphine) 4 mg IVP Q4 PRN PRN Reason: Pain, moderate (4-7) Last Admin: 05/13/17 07:58 Dose: 4 mg Nebivolol (Bystolic) 2.5 mg PO DAILY [facility] Last Admin: 05/13/17 09:19 Dose: 2.5 mg Nifedipine (Procardia Xl) 120 mg PO DAILY [facility] Last Admin: 05/13/17 09:19 Dose: 120 mg Ondansetron HCl (Zofran Inj) 4 mg IVP Q6H PRN PRN Reason: Nausea/Vomiting Last Admin: 05/13/17 09:27 Dose: 4 mg Pantoprazole Sodium (Protonix Inj) 40 mg IVP DAILY [facility] Last Admin: 05/13/17 09:20 Dose: 40 mg Potassium Chloride (K-Dur 20 Meq Er Tab) 20 meq PO ONCE ONE Stop: 05/14/17 11:46 Saccharomyces Boulardii (Florastor) 250 mg PO BID [facility] Last Admin: 05/13/17 17:07 Dose: 250 mg Topiramate (Topamax) 50 mg PO BID [facility] Last Admin: 05/13/17 17:08 Dose: 50 mg - Labs Labs: 05/14/17 06:02 05/14/17 06:02 - Constitutional Appears: No Acute Distress, Chronically Ill - Head Exam Head Exam: ATRAUMATIC, NORMAL INSPECTION - Eye Exam Eye Exam: EOMI, Normal appearance - Neck Exam Neck Exam: Normal Inspection. absent: Tenderness - Respiratory Exam Respiratory Exam: Clear to Ausculation Bilateral, NORMAL BREATHING PATTERN - Cardiovascular Exam Cardiovascular Exam: REGULAR RHYTHM - GI/Abdominal Exam GI & Abdominal Exam: Soft, Tenderness - Extremities Exam Extremities Exam: Normal Inspection. absent: Tenderness - Neurological Exam Neurological Exam: Awake, CN II-XII Intact - Skin Skin Exam: Dry, Warm Assessment and Plan (1) Chronic kidney disease, stage IV (severe) Status: Acute (2) Proteinuria Status: Acute (3) Biliary obstruction Status: Acute (4) Cholangiocarcinoma Status: Acute (5) HTN (hypertension) Status: Acute (6) Bacteremia Status: Acute - Assessment and Plan (Free Text) Plan: same BP meds monitor renal function, off fluid rehydration
[2017-05-14] MEDS: Saccharomyces Boulardi 250 mg Cap PO SCH ×2 (11:56→18:24)
[2017-05-14] MEDS: NIFEdipine 60 mg ER Tab PO SCH (11:57)
--- NOTE | 2017-05-14 13:34 | CP.PCM.PN ---
<JenniferAna - Last Filed: 05/14/17 13:35> Subjective - Date & Time of Evaluation Date of Evaluation: 05/14/17 Time of Evaluation: 13:40 - Subjective Subjective: Progress note for Dr. Zapata Patient seen and examined with attending and granddaughter at bedside. No acute events overnight. fluids were discontinued due to high blood pressure yesterday and patient's blood pressure is back sewer to baseline. Patient's kidney function is also improving. Patient's midline isn't working per nursing staff. Spoke with patient's daughter on the phone, informed her that we are redrawing blood for cultures and urine for cultures and if they are negative, likely to send patient home on oral medications when test results come back. Patient and Patient's family aware that until the infection in the blood clears, patient cannot undergo the pancreaticoduodenectomy. Patient had hgb of 7.[address] Carter ordered for blood transfusion to follow up cbc in the afternoon. Patient consented for blood transfusion and midline/picc line placement by IR. Patient admits to minimal abdominal pain. Patient denies fever, chills, nausea , vomiting, chest pain, diarrhea, constipation. Objective - Vital Signs/Intake and Output Vital Signs (last 24 hours): Temp Pulse Resp BP Pulse Ox 98.4 F 69 20 152/71 H 99 05/14/17 07:46 05/14/17 07:46 05/14/17 07:46 05/14/17 07:46 05/14/17 07:46 Intake and Output: 05/14/17 05/14/17 06:59 18:59 Intake Total 780 Balance 780 - Medications Medications: Current Medications Clopidogrel Bisulfate (Plavix) 75 mg PO DAILY [facility] Last Admin: 05/14/17 11:57 Dose: 75 mg Dextrose (Dextrose 50% Inj) 0 ml IV STAT PRN; Protocol PRN Reason: Hypoglycemia Protocol Dextrose (Glutose 15) 0 gm PO ONCE PRN; Protocol PRN Reason: Hypoglycemia Protocol Glucagon (Glucagen Diagnostic Kit) 0 mg IM STAT PRN; Protocol PRN Reason: Hypoglycemia Protocol Hydralazine HCl (Apresoline) 10 mg IVP Q6H PRN PRN Reason: Systolic Blood Pressure Last Admin: 05/13/17 07:50 Dose: 10 mg Hydralazine HCl (Apresoline) 10 mg PO QID [facility] Last Admin: 05/14/17 11:57 Dose: 10 mg Dextrose (Dextrose 5% In Water 1000 Ml) 1,000 mls @ 0 mls/hr IV .Q0M PRN; Protocol; Per Protocol PRN Reason: Hypoglycemia Protocol Meropenem 500 mg/ Sodium (Chloride) 100 mls @ 100 mls/hr IVPB Q12H [facility] PRN Reason: Protocol Last Admin: 05/14/17 05:22 Dose: 100 mls/hr Insulin Human Regular (Novolin R) 0 unit SC ACHS [facility] PRN Reason: Protocol Last Admin: 05/14/17 07:52 Dose: Not Given Morphine Sulfate (Morphine) 4 mg IVP Q4 PRN PRN Reason: Pain, moderate (4-7) Last Admin: 05/13/17 07:58 Dose: 4 mg Nebivolol (Bystolic) 2.5 mg PO DAILY [facility] Last Admin: 05/14/17 11:57 Dose: 2.5 mg Nifedipine (Procardia Xl) 120 mg PO DAILY [facility] Last Admin: 05/14/17 11:57 Dose: 120 mg Ondansetron HCl (Zofran Inj) 4 mg IVP Q6H PRN PRN Reason: Nausea/Vomiting Last Admin: 05/13/17 09:27 Dose: 4 mg Pantoprazole Sodium (Protonix Inj) 40 mg IVP DAILY [facility] Last Admin: 05/14/17 11:57 Dose: 40 mg Saccharomyces Boulardii (Florastor) 250 mg PO BID [facility] Last Admin: 05/14/17 11:56 Dose: 250 mg Topiramate (Topamax) 50 mg PO BID [facility] Last Admin: 05/14/17 11:56 Dose: 50 mg - Labs Labs: 05/14/17 06:02 05/14/17 06:02 - Additional Findings Additional findings: - Constitutional Appears: Non-toxic, No Acute Distress - Head Exam Head Exam: ATRAUMATIC, NORMAL INSPECTION - Eye Exam Eye Exam: EOMI Pupil Exam: NORMAL ACCOMODATION - ENT Exam ENT Exam: Mucous Membranes Moist - Neck Exam Neck Exam: Full ROM - Respiratory Exam Respiratory Exam: NORMAL BREATHING PATTERN. absent: Wheezes - Cardiovascular Exam Cardiovascular Exam: +S1, +S2 - GI/Abdominal Exam GI & Abdominal Exam: Soft, mild Tenderness to palpation (RUQ), Normal Bowel Sounds. - Extremities Exam Extremities Exam: Full ROM, Normal Capillary Refill right arm midline in place, per nursing, midline doesn't work. - Back Exam Back Exam: Full ROM - Neurological Exam Neurological Exam: Alert, Awake, Oriented x3 - Psychiatric Exam Psychiatric exam: Normal Affect, Normal Mood - Skin Skin Exam: Dry, Warm Assessment and Plan - Assessment and Plan (Free Text) Assessment: 1). Bacteremia Secondary to Klebsiella pneumoniae 05/07/17 Repeat Blood Culture 05/09/17 is negative to date Will need to figure out antibiotic therapy planning once patient is optimized for discharge- Considerations for [facility] infusion center vs. [facility]. Following, patient can continue Invanz 500 mg IV through 05/23/17 Currently on Meropenem 500 mg IV Q12H If patient opts for infusion, then Medicine Team will have to get PICC Line placed. 2). UTI Secondary to E. coli 05/06/17 Repeat Urine Culture 05/09/17 shows Gram (+) Cocci Currently on Meropenem 500 mg IV Q12H 3). Hx Cholangiocarcinoma S/P Stent for Obstructive Jaundice/Transaminitis via ERCP 05/07/17 Surgery planning for Pancreaticoduodenectomy at later undetermined date:after bacteremia and UTI resolve. Will need to touch base with surgery team nearer to then for planning. 4). Hx CKD Stage 4 with Acidosis Acidosis has resolved NO HD at this time as per Nephrology Dr. Juárez NeutraPhos 1 packet PO 1x/day D5 NaHCO3 150 mEQ @ 60 ml/hour- discontinued Monitor 5). Hx DM 2 ISS Diet Management warranted Monitor Accuchecks 6). Hx HTN with Urgency NOT currently under control therefore Hydralazine 10 mg PO 4x/day was added 05/12 Bystolic 2.5 mg PO 1x/day (could not increase this because hear rate in the 60s) Procardia XL 120 mg PO 1x/day (this medication has been maxed out) Hydralazine 10 mg IV Q6H PRN SBP > 160 Prior D5 solution with bicarb may have elevated pressures- This has since been discontinued. 7). Hx Diastolic HF and CAD Bystolic 2.5 mg PO 1x/day Plavix 75 mg PO 1x/day Echocardiogram 04/17/17: EF estimated 55-60%, moderate diastolic dysfunction, moderate pulmonary HTN, trace pericardial effusion 8). Hx Anemia Likely Secondary to CKD 4/2 1uPRBC midline, Heme/Onc: Dr. Carter Continue to monitor 9). Proteinuria CKD Stage 4 F/U Nephrology recommendations 10). Thrombocytopenia Likely secondary to bacteremia and UTI Improved, stable Monitor 11). Prophylaxis Morphine 4 mg IV Q4H PRN Moderate Pain Zofran 4 mg IV Q6H PRN N/V Protonix 40 mg IV 1x/day Will need to follow up with Case Management team for discharge planning once bacteremia resolves. <Brad Zapata H - Last Filed: 05/14/17 14:01> Objective - Vital Signs/Intake and Output Vital Signs (last 24 hours): Temp Pulse Resp BP Pulse Ox 98.4 F 69 20 152/71 H 99 05/14/17 07:46 05/14/17 07:46 05/14/17 07:46 05/14/17 07:46 05/14/17 07:46 Intake and Output: 05/14/17 05/14/17 06:59 18:59 Intake Total 780 Balance 780 - Medications Medications: Current Medications Clopidogrel Bisulfate (Plavix) 75 mg PO DAILY [facility] Last Admin: 05/14/17 11:57 Dose: 75 mg Dextrose (Dextrose 50% Inj) 0 ml IV STAT PRN; Protocol PRN Reason: Hypoglycemia Protocol Dextrose (Glutose 15) 0 gm PO ONCE PRN; Protocol PRN Reason: Hypoglycemia Protocol Glucagon (Glucagen Diagnostic Kit) 0 mg IM STAT PRN; Protocol PRN Reason: Hypoglycemia Protocol Hydralazine HCl (Apresoline) 10 mg IVP Q6H PRN PRN Reason: Systolic Blood Pressure Last Admin: 05/13/17 07:50 Dose: 10 mg Hydralazine HCl (Apresoline) 10 mg PO QID [facility] Last Admin: 05/14/17 11:57 Dose: 10 mg Dextrose (Dextrose 5% In Water 1000 Ml) 1,000 mls @ 0 mls/hr IV .Q0M PRN; Protocol; Per Protocol PRN Reason: Hypoglycemia Protocol Meropenem 500 mg/ Sodium (Chloride) 100 mls @ 100 mls/hr IVPB Q12H [facility] PRN Reason: Protocol Last Admin: 05/14/17 05:22 Dose: 100 mls/hr Insulin Human Regular (Novolin R) 0 unit SC ACHS [facility] PRN Reason: Protocol Last Admin: 05/14/17 07:52 Dose: Not Given Morphine Sulfate (Morphine) 4 mg IVP Q4 PRN PRN Reason: Pain, moderate (4-7) Last Admin: 05/13/17 07:58 Dose: 4 mg Nebivolol (Bystolic) 2.5 mg PO DAILY [facility] Last Admin: 05/14/17 11:57 Dose: 2.5 mg Nifedipine (Procardia Xl) 120 mg PO DAILY [facility] Last Admin: 05/14/17 11:57 Dose: 120 mg Ondansetron HCl (Zofran Inj) 4 mg IVP Q6H PRN PRN Reason: Nausea/Vomiting Last Admin: 05/13/17 09:27 Dose: 4 mg Pantoprazole Sodium (Protonix Inj) 40 mg IVP DAILY [facility] Last Admin: 05/14/17 11:57 Dose: 40 mg Saccharomyces Boulardii (Florastor) 250 mg PO BID [facility] Last Admin: 05/14/17 11:56 Dose: 250 mg Topiramate (Topamax) 50 mg PO BID [facility] Last Admin: 05/14/17 11:56 Dose: 50 mg - Labs Labs: 05/14/17 06:02 05/14/17 06:02 Attending/Attestation - Attestation I have personally seen and examined this patient.: Yes I have fully participated in the care of the patient.: Yes I have reviewed all pertinent clinical information, including history, physical exam and plan: Yes Notes (Text): Medical attending: Patient was seen and examined by me. Agree with the above note by the resident The patient was not in any acute distress when we saw her. Family member, her grandaughter was present in the room. We also spoke with the patient's daughter as well over speaker phone. Currently patient reported no abdominal pain when I saw her. As mentioned before she had a 05/07 culture positive for Klebsiella and a repeat culture done on 05/09 that was negative. We will check another blood as well as urine culture today. She remains on IV abx. Yesterday blood pressure was high, she was on D5 with bicarb IVF at that time and it has been off - today blood pressure was lower. The patient as mentioned previously has choleangio carcinoma and pending surgery on May 18. I explained to patient and family in the room as well as over speak phone that it is too close to surgery and that they will have to rescedule the operation on another date. thank you Brad Zapata
--- NOTE | 2017-05-14 13:39 | CP.PCM.PN ---
<Brad Mixon - Last Filed: 05/14/17 16:12> Subjective - Date & Time of Evaluation Date of Evaluation: 05/14/17 Time of Evaluation: 09:35 - Subjective Subjective: PGY2 Cardiology Progress Note for Dr. Corona Patient seen and examined at bedside. No acute distress. Patient denies chest pain, SOB, dizziness, or LE edema. She is resting comfortably and offers no additional acute complaints. 12-point review of systems is otherwise negative. Objective - Vital Signs/Intake and Output Vital Signs (last 24 hours): Temp Pulse Resp BP Pulse Ox 98.4 F 69 20 152/71 H 99 05/14/17 07:46 05/14/17 07:46 05/14/17 07:46 05/14/17 07:46 05/14/17 07:46 Intake and Output: 05/14/17 05/14/17 06:59 18:59 Intake Total 780 Balance 780 - Medications Medications: Current Medications Clopidogrel Bisulfate (Plavix) 75 mg PO DAILY [facility] Last Admin: 05/14/17 11:57 Dose: 75 mg Dextrose (Dextrose 50% Inj) 0 ml IV STAT PRN; Protocol PRN Reason: Hypoglycemia Protocol Dextrose (Glutose 15) 0 gm PO ONCE PRN; Protocol PRN Reason: Hypoglycemia Protocol Glucagon (Glucagen Diagnostic Kit) 0 mg IM STAT PRN; Protocol PRN Reason: Hypoglycemia Protocol Hydralazine HCl (Apresoline) 10 mg IVP Q6H PRN PRN Reason: Systolic Blood Pressure Last Admin: 05/13/17 07:50 Dose: 10 mg Hydralazine HCl (Apresoline) 10 mg PO QID [facility] Last Admin: 05/14/17 11:57 Dose: 10 mg Dextrose (Dextrose 5% In Water 1000 Ml) 1,000 mls @ 0 mls/hr IV .Q0M PRN; Protocol; Per Protocol PRN Reason: Hypoglycemia Protocol Meropenem 500 mg/ Sodium (Chloride) 100 mls @ 100 mls/hr IVPB Q12H [facility] PRN Reason: Protocol Last Admin: 05/14/17 05:22 Dose: 100 mls/hr Insulin Human Regular (Novolin R) 0 unit SC ACHS [facility] PRN Reason: Protocol Last Admin: 05/14/17 07:52 Dose: Not Given Morphine Sulfate (Morphine) 4 mg IVP Q4 PRN PRN Reason: Pain, moderate (4-7) Last Admin: 05/13/17 07:58 Dose: 4 mg Nebivolol (Bystolic) 2.5 mg PO DAILY [facility] Last Admin: 05/14/17 11:57 Dose: 2.5 mg Nifedipine (Procardia Xl) 120 mg PO DAILY [facility] Last Admin: 05/14/17 11:57 Dose: 120 mg Ondansetron HCl (Zofran Inj) 4 mg IVP Q6H PRN PRN Reason: Nausea/Vomiting Last Admin: 05/13/17 09:27 Dose: 4 mg Pantoprazole Sodium (Protonix Inj) 40 mg IVP DAILY [facility] Last Admin: 05/14/17 11:57 Dose: 40 mg Saccharomyces Boulardii (Florastor) 250 mg PO BID [facility] Last Admin: 05/14/17 11:56 Dose: 250 mg Topiramate (Topamax) 50 mg PO BID [facility] Last Admin: 05/14/17 11:56 Dose: 50 mg - Labs Labs: 05/14/17 06:02 05/14/17 06:02 - Additional Findings Additional findings: - Constitutional Appears: Non-toxic, No Acute Distress - Head Exam Head Exam: ATRAUMATIC, NORMAL INSPECTION - Eye Exam Eye Exam: EOMI Pupil Exam: NORMAL ACCOMODATION - ENT Exam ENT Exam: Mucous Membranes Moist - Neck Exam Neck Exam: Full ROM - Respiratory Exam Respiratory Exam: NORMAL BREATHING PATTERN. absent: Wheezes - Cardiovascular Exam Cardiovascular Exam: Regular Rate, +S1, +S2; absent: Murmur - GI/Abdominal Exam GI & Abdominal Exam: Soft, Tenderness (RUQ), Normal Bowel Sounds - Extremities Exam Extremities Exam: Full ROM, Normal Capillary Refill - Back Exam Back Exam: Full ROM - Neurological Exam Neurological Exam: Alert, Awake, Oriented x3 - Psychiatric Exam Psychiatric exam: Normal Affect, Normal Mood - Skin Skin Exam: Dry, Warm Assessment and Plan - Assessment and Plan (Free Text) Assessment: Hypertensive urgency 05/11-05/14: BP controlled, will continue to monitor. Markedly elevated at admission; large pain component * Bystolic and nifedipine XL continued (home meds) * Hydralazine 10mg IV Q6H PRN for SBP > 160 Diastolic CHF 4/2: Patient will need stress test prior to any surgical procedures. Echo 05/08: EF normal, diastolic dysfunction moderate, inc LA pressure, pulm HTN (50mmHg); see full report. prior echo (04/17/17): EF 55-60%, mod diastolic dysfxn. Moderate Pulm Htn. Trace pericardial effusion. Procardia XL 120mg PO daily, Bystolic 2.5 mg PO daily. CAD Plavix 75mg PO Daily Lipid panel noted from prior admission: Tri, Chol: 186, LDL: 97, HDL: [address] Cj Mixon, PGY2 <Martin Corona - Last Filed: 05/14/17 23:08> Objective - Vital Signs/Intake and Output Vital Signs (last 24 hours): Temp Pulse Resp BP Pulse Ox 98.5 F 67 20 154/70 H 98 05/14/17 21:11 05/14/17 21:11 05/14/17 21:11 05/14/17 21:11 05/14/17 15:05 Intake and Output: 05/14/17 05/15/17 18:59 06:59 Intake Total 840 1060 Balance 840 1060 - Medications Medications: Current Medications Clopidogrel Bisulfate (Plavix) 75 mg PO DAILY [facility] Last Admin: 05/14/17 11:57 Dose: 75 mg Dextrose (Dextrose 50% Inj) 0 ml IV STAT PRN; Protocol PRN Reason: Hypoglycemia Protocol Dextrose (Glutose 15) 0 gm PO ONCE PRN; Protocol PRN Reason: Hypoglycemia Protocol Glucagon (Glucagen Diagnostic Kit) 0 mg IM STAT PRN; Protocol PRN Reason: Hypoglycemia Protocol Hydralazine HCl (Apresoline) 10 mg IVP Q6H PRN PRN Reason: Systolic Blood Pressure Last Admin: 05/13/17 07:50 Dose: 10 mg Hydralazine HCl (Apresoline) 10 mg PO QID [facility] Last Admin: 05/14/17 22:20 Dose: 10 mg Dextrose (Dextrose 5% In Water 1000 Ml) 1,000 mls @ 0 mls/hr IV .Q0M PRN; Protocol; Per Protocol PRN Reason: Hypoglycemia Protocol Meropenem 500 mg/ Sodium (Chloride) 100 mls @ 100 mls/hr IVPB Q12H [facility] PRN Reason: Protocol Last Admin: 05/14/17 16:53 Dose: 100 mls/hr Insulin Human Regular (Novolin R) 0 unit SC ACHS [facility] PRN Reason: Protocol Last Admin: 05/14/17 22:21 Dose: Not Given Morphine Sulfate (Morphine) 4 mg IVP Q4 PRN PRN Reason: Pain, moderate (4-7) Last Admin: 05/13/17 07:58 Dose: 4 mg Nebivolol (Bystolic) 2.5 mg PO DAILY [facility] Last Admin: 05/14/17 11:57 Dose: 2.5 mg Nifedipine (Procardia Xl) 120 mg PO DAILY [facility] Last Admin: 05/14/17 11:57 Dose: 120 mg Ondansetron HCl (Zofran Inj) 4 mg IVP Q6H PRN PRN Reason: Nausea/Vomiting Last Admin: 05/13/17 09:27 Dose: 4 mg Pantoprazole Sodium (Protonix Inj) 40 mg IVP DAILY [facility] Last Admin: 05/14/17 11:57 Dose: 40 mg Saccharomyces Boulardii (Florastor) 250 mg PO BID [facility] Last Admin: 05/14/17 18:24 Dose: 250 mg Topiramate (Topamax) 50 mg PO BID [facility] Last Admin: 05/14/17 22:19 Dose: 50 mg - Labs Labs: 05/14/17 06:02 05/14/17 06:02 Assessment and Plan - Assessment and Plan (Free Text) Plan: Patient seen and evaluated personally by me Plan of care d/w the resident and as documented
--- NOTE | 2017-05-14 15:01 | PCM.SURG1 ---
Surgeon's Initial Post Op Note - Surgeon's Notes Surgeon: Aaron Orantes MD Inorganic Chemist: None Type of Anesthesia: Local Pre-Operative Diagnosis: transfusion, IV access Operative Findings: patent right basilic vein. catheter length: 38 cm. catheter tip: cavoatrial junction Post-Operative Diagnosis: same Operation Performed: RUE PICC Insertion Specimen/Specimens Removed: n/a Estimated Blood Loss: EBL {In ML}: 3 Date of Surgery/Procedure: 05/14/17 Time of Surgery/Procedure: 15:01
--- NOTE | 2017-05-14 15:38 | US ---
PROCEDURE: PERIPHERALLY INSERTED CENTRAL VENOUS CATHETER INSERTION CLINICAL HISTORY: 76-year-old female requiring transfusion is referred to Interventional Radiology for PICC insertion. COMPARISON: None. PROCEDURE: 1. Focused ultrasound of the right upper extremity vasculature. 2. Ultrasound-guided access. 3. Insertion of peripherally inserted central venous catheter. 4. Fluoroscopic localization of catheter tip. PRE-PROCEDURE FINDINGS: 1. Patent right basilic vein. POST-PROCEDURE FINDINGS: 1. Placement of 4 [place] single-lumen PICC. 2. Catheter length: 38 cm. 3. Catheter tip at cavoatrial junction. INTERVENTIONAL RADIOLOGIST: Aaron Orantes M.D. (the attending was present for the entire procedure) ANESTHESIA: None. MEDICATION: Lidocaine 1% for local subcutaneous analgesia. COMPLICATIONS: None. RADIATION DOSE: Fluoroscopy Time: 41.2 seconds Cumulative Dose: 0.10 mGym2 PROCEDURE DESCRIPTION AND FINDINGS: The risks, benefits, alternatives and possible complications of the procedure were fully discussed; all questions were answered and informed consent was obtained. The patient was brought into the interventional suite and a pre-procedure 'time-out' was performed. The patient was placed on the fluoroscopy table in the supine position. The right upper extremity was prepped and draped in the usual sterile fashion. Maximum sterile barrier precautions were maintained throughout the entire procedure. Preliminary ultrasound images of the right upper extremity vasculature demonstrate patency of the right basilic vein. Following subcutaneous infiltration of 1% lidocaine for local analgesia, under ultrasound guidance, a 21-gauge needle was advanced into the right basilic vein with real-time visualization of needle entry. The ultrasound images were permanently recorded and submitted to the PACS. A 0.018 guidewire was advanced centrally to the cavoatrial junction. A 4.5 [place] peel-away sheath was advanced over the guidewire. After obtaining length measurement, a 4 [place] single-lumen PICC was placed with the tip of the catheter at the cavoatrial junction. The total length of the catheter is 38 cm. The hub of the PICC was secured to the skin using a sterile adhesive bandage. The patient tolerated the procedure well without immediate post-procedure complications and was transferred back to the floor in stable condition. IMPRESSION: SUCCESSFUL INSERTION OF RIGHT UPPER EXTREMITY PICC. PICC OK TO USE.
--- NOTE | 2017-05-14 19:47 | CP.PCM.PN ---
Subjective - Date & Time of Evaluation Date of Evaluation: 05/14/17 Time of Evaluation: 18:00 - Subjective Subjective: No complaints. Objective - Vital Signs/Intake and Output Vital Signs (last 24 hours): Temp Pulse Resp BP Pulse Ox 98.2 F 58 L 20 139/63 98 05/14/17 18:50 05/14/17 18:50 05/14/17 18:50 05/14/17 18:50 05/14/17 15:05 Intake and Output: 05/14/17 05/15/17 18:59 06:59 Intake Total 840 Balance 840 - Medications Medications: Current Medications Clopidogrel Bisulfate (Plavix) 75 mg PO DAILY [facility] Last Admin: 05/14/17 11:57 Dose: 75 mg Dextrose (Dextrose 50% Inj) 0 ml IV STAT PRN; Protocol PRN Reason: Hypoglycemia Protocol Dextrose (Glutose 15) 0 gm PO ONCE PRN; Protocol PRN Reason: Hypoglycemia Protocol Glucagon (Glucagen Diagnostic Kit) 0 mg IM STAT PRN; Protocol PRN Reason: Hypoglycemia Protocol Hydralazine HCl (Apresoline) 10 mg IVP Q6H PRN PRN Reason: Systolic Blood Pressure Last Admin: 05/13/17 07:50 Dose: 10 mg Hydralazine HCl (Apresoline) 10 mg PO QID [facility] Last Admin: 05/14/17 18:24 Dose: 10 mg Dextrose (Dextrose 5% In Water 1000 Ml) 1,000 mls @ 0 mls/hr IV .Q0M PRN; Protocol; Per Protocol PRN Reason: Hypoglycemia Protocol Meropenem 500 mg/ Sodium (Chloride) 100 mls @ 100 mls/hr IVPB Q12H [facility] PRN Reason: Protocol Last Admin: 05/14/17 16:53 Dose: 100 mls/hr Insulin Human Regular (Novolin R) 0 unit SC ACHS [facility] PRN Reason: Protocol Last Admin: 05/14/17 12:35 Dose: Not Given Morphine Sulfate (Morphine) 4 mg IVP Q4 PRN PRN Reason: Pain, moderate (4-7) Last Admin: 05/13/17 07:58 Dose: 4 mg Nebivolol (Bystolic) 2.5 mg PO DAILY [facility] Last Admin: 05/14/17 11:57 Dose: 2.5 mg Nifedipine (Procardia Xl) 120 mg PO DAILY [facility] Last Admin: 05/14/17 11:57 Dose: 120 mg Ondansetron HCl (Zofran Inj) 4 mg IVP Q6H PRN PRN Reason: Nausea/Vomiting Last Admin: 05/13/17 09:27 Dose: 4 mg Pantoprazole Sodium (Protonix Inj) 40 mg IVP DAILY [facility] Last Admin: 05/14/17 11:57 Dose: 40 mg Saccharomyces Boulardii (Florastor) 250 mg PO BID [facility] Last Admin: 05/14/17 18:24 Dose: 250 mg Topiramate (Topamax) 50 mg PO BID [facility] Last Admin: 05/14/17 11:56 Dose: 50 mg - Labs Labs: 05/14/17 06:02 05/14/17 06:02 - Head Exam Head Exam: ATRAUMATIC - Eye Exam Eye Exam: Normal appearance - ENT Exam ENT Exam: Mucous Membranes Dry - Respiratory Exam Respiratory Exam: NORMAL BREATHING PATTERN - Cardiovascular Exam Cardiovascular Exam: +S1, +S2 - GI/Abdominal Exam GI & Abdominal Exam: Normal Bowel Sounds Assessment and Plan (1) Anemia Assessment & Plan: chronic disease PRBC transfusion Status: Acute (2) Cholangiocarcinoma Assessment & Plan: outpatient surgery Status: Acute (3) Thrombocytopenia Assessment & Plan: resolved Status: Acute
--- NOTE | 2017-05-14 20:27 | CP.PCM.PN ---
Subjective - Date & Time of Evaluation Date of Evaluation: 05/14/17 Time of Evaluation: 03:00 - Subjective Subjective: dictated Objective - Vital Signs/Intake and Output Vital Signs (last 24 hours): Temp Pulse Resp BP Pulse Ox 98 F 56 L 20 147/63 98 05/14/17 19:35 05/14/17 19:35 05/14/17 19:35 05/14/17 19:35 05/14/17 15:05 Intake and Output: 05/14/17 05/15/17 18:59 06:59 Intake Total 840 Balance 840 - Medications Medications: Current Medications Clopidogrel Bisulfate (Plavix) 75 mg PO DAILY [facility] Last Admin: 05/14/17 11:57 Dose: 75 mg Dextrose (Dextrose 50% Inj) 0 ml IV STAT PRN; Protocol PRN Reason: Hypoglycemia Protocol Dextrose (Glutose 15) 0 gm PO ONCE PRN; Protocol PRN Reason: Hypoglycemia Protocol Glucagon (Glucagen Diagnostic Kit) 0 mg IM STAT PRN; Protocol PRN Reason: Hypoglycemia Protocol Hydralazine HCl (Apresoline) 10 mg IVP Q6H PRN PRN Reason: Systolic Blood Pressure Last Admin: 05/13/17 07:50 Dose: 10 mg Hydralazine HCl (Apresoline) 10 mg PO QID [facility] Last Admin: 05/14/17 18:24 Dose: 10 mg Dextrose (Dextrose 5% In Water 1000 Ml) 1,000 mls @ 0 mls/hr IV .Q0M PRN; Protocol; Per Protocol PRN Reason: Hypoglycemia Protocol Meropenem 500 mg/ Sodium (Chloride) 100 mls @ 100 mls/hr IVPB Q12H [facility] PRN Reason: Protocol Last Admin: 05/14/17 16:53 Dose: 100 mls/hr Insulin Human Regular (Novolin R) 0 unit SC ACHS [facility] PRN Reason: Protocol Last Admin: 05/14/17 12:35 Dose: Not Given Morphine Sulfate (Morphine) 4 mg IVP Q4 PRN PRN Reason: Pain, moderate (4-7) Last Admin: 05/13/17 07:58 Dose: 4 mg Nebivolol (Bystolic) 2.5 mg PO DAILY [facility] Last Admin: 05/14/17 11:57 Dose: 2.5 mg Nifedipine (Procardia Xl) 120 mg PO DAILY [facility] Last Admin: 05/14/17 11:57 Dose: 120 mg Ondansetron HCl (Zofran Inj) 4 mg IVP Q6H PRN PRN Reason: Nausea/Vomiting Last Admin: 05/13/17 09:27 Dose: 4 mg Pantoprazole Sodium (Protonix Inj) 40 mg IVP DAILY [facility] Last Admin: 05/14/17 11:57 Dose: 40 mg Saccharomyces Boulardii (Florastor) 250 mg PO BID [facility] Last Admin: 05/14/17 18:24 Dose: 250 mg Topiramate (Topamax) 50 mg PO BID [facility] Last Admin: 05/14/17 11:56 Dose: 50 mg - Labs Labs: 05/14/17 06:02 05/14/17 06:02
[2017-05-15] MEDS: Meropenem 500 MG in Sodium Chloride 0.9% 100 ML IVPB SCH (05:29)
[2017-05-15 07:29] LABS: ALB/GLOB RATIO 0.6 (1.0-2.1); ALBUMIN 2.5 g/dL (3.5-5.0)
[2017-05-15 07:30] LABS: BASO % 0.7 % (0.0-2.0); EOS # 0.2 K/uL (0.0-0.7); EOS % 5.4 % (0.0-4.0); LYMPH # 1.3 K/uL (1.0-4.3); LYMPH % 36.5 % (20.0-40.0); MEAN CELL VOLUME 90.7 fL (81.0-99.0); MEAN CORPUSCULAR HEMOGLOBIN 31.2 pg (27.0-31.0); MEAN CORPUSCULAR HGB CONC 34.4 g/dL (33.0-37.0); MEAN PLATELET VOLUME 8.9 fL (7.2-11.7); MONO # 0.2 K/uL (0.0-0.8); NEUT # 1.8 K/uL (1.8-7.0); NEUT % 51.4 % (50.0-75.0); NRBC % 0.1 % (0.0-2.0); RBC 2.87 Mil/uL (3.80-5.20); WHITE BLOOD COUNT 3.5 K/uL (4.8-10.8)
[2017-05-15 07:50] VITALS: O2SAT 96
[2017-05-15] MEDS: (Novolin R) Insulin Human Regular 100 units/ml vial SC SCH ×2 (08:06→11:51)
--- NOTE | 2017-05-15 11:08 | CP.PCM.PN ---
Subjective - Date & Time of Evaluation Date of Evaluation: 05/15/17 Time of Evaluation: 11:06 - Subjective Subjective: seen and examined pt comfortable denies any complaints other than back pain no nausea vomiting diarrhea sob dizziness chest pain poor appetite Objective - Vital Signs/Intake and Output Vital Signs (last 24 hours): Temp Pulse Resp BP Pulse Ox 98.3 F 62 20 155/64 H 96 05/15/17 07:49 05/15/17 07:49 05/15/17 07:49 05/15/17 07:49 05/15/17 07:49 Intake and Output: 05/15/17 05/15/17 06:59 18:59 Intake Total 1060 Balance 1060 - Medications Medications: Current Medications Clopidogrel Bisulfate (Plavix) 75 mg PO DAILY [facility] Last Admin: 05/14/17 11:57 Dose: 75 mg Dextrose (Dextrose 50% Inj) 0 ml IV STAT PRN; Protocol PRN Reason: Hypoglycemia Protocol Dextrose (Glutose 15) 0 gm PO ONCE PRN; Protocol PRN Reason: Hypoglycemia Protocol Glucagon (Glucagen Diagnostic Kit) 0 mg IM STAT PRN; Protocol PRN Reason: Hypoglycemia Protocol Hydralazine HCl (Apresoline) 10 mg IVP Q6H PRN PRN Reason: Systolic Blood Pressure Last Admin: 05/13/17 07:50 Dose: 10 mg Hydralazine HCl (Apresoline) 10 mg PO QID [facility] Last Admin: 05/14/17 22:20 Dose: 10 mg Meropenem 500 mg/ Sodium (Chloride) 100 mls @ 100 mls/hr IVPB Q12H [facility] PRN Reason: Protocol Last Admin: 05/15/17 05:29 Dose: 100 mls/hr Insulin Human Regular (Novolin R) 0 unit SC ACHS [facility] PRN Reason: Protocol Last Admin: 05/15/17 08:06 Dose: Not Given Morphine Sulfate (Morphine) 4 mg IVP Q4 PRN PRN Reason: Pain, moderate (4-7) Last Admin: 05/13/17 07:58 Dose: 4 mg Nebivolol (Bystolic) 2.5 mg PO DAILY [facility] Last Admin: 05/14/17 11:57 Dose: 2.5 mg Nifedipine (Procardia Xl) 120 mg PO DAILY [facility] Last Admin: 05/14/17 11:57 Dose: 120 mg Ondansetron HCl (Zofran Inj) 4 mg IVP Q6H PRN PRN Reason: Nausea/Vomiting Last Admin: 05/13/17 09:27 Dose: 4 mg Pantoprazole Sodium (Protonix Inj) 40 mg IVP DAILY [facility] Last Admin: 05/14/17 11:57 Dose: 40 mg Saccharomyces Boulardii (Florastor) 250 mg PO BID [facility] Last Admin: 05/14/17 18:24 Dose: 250 mg Topiramate (Topamax) 50 mg PO BID [facility] Last Admin: 05/14/17 22:19 Dose: 50 mg - Labs Labs: 05/15/17 07:07 05/15/17 07:07 - Constitutional Appears: No Acute Distress, Cachectic, Chronically Ill - Head Exam Head Exam: NORMAL INSPECTION, NORMOCEPHALIC - Eye Exam Eye Exam: Normal appearance, PERRL - ENT Exam ENT Exam: Mucous Membranes Moist, Normal Exam - Neck Exam Neck Exam: Full ROM, Normal Inspection - Respiratory Exam Respiratory Exam: Clear to Ausculation Bilateral, NORMAL BREATHING PATTERN - Cardiovascular Exam Cardiovascular Exam: REGULAR RHYTHM, RRR - GI/Abdominal Exam GI & Abdominal Exam: Distended, Soft, Hypoactive Bowel Sounds - Extremities Exam Extremities Exam: Normal Capillary Refill, Normal Inspection - Neurological Exam Neurological Exam: Alert, Awake - Psychiatric Exam Psychiatric exam: Normal Affect, Normal Mood - Skin Skin Exam: Normal Color, Warm Assessment and Plan (1) Bacteremia Status: Acute (2) Chronic kidney disease, stage IV (severe) Status: Acute (3) Elevated liver enzymes Status: Acute (4) Pancreatic cancer Status: Acute (5) Anemia Status: Acute (6) Urinary tract infection Status: Acute - Assessment and Plan (Free Text) Assessment: resolving naseem. monitor chems encourage po fluids
--- NOTE | 2017-05-15 11:46 | CP.PCM.PN ---
<Brad Mixon - Last Filed: 05/15/17 16:17> Subjective - Date & Time of Evaluation Date of Evaluation: 05/15/17 Time of Evaluation: 07:50 - Subjective Subjective: PGY2 Cardiology Progress Note for Dr. Corona Patient seen and examined at bedside. No acute distress. Patient denies chest pain, SOB, dizziness, or LE edema. PICC in place. We spoke at length with her daughter present, regarding her need for Cardiac stress testing prior to any future surgery. She states she has a financial advisor who did a stress test 2 months ago. She will provide these documents to her surgeon. She is resting comfortably and offers no additional acute complaints. 12-point review of systems is otherwise negative. Objective - Vital Signs/Intake and Output Vital Signs (last 24 hours): Temp Pulse Resp BP Pulse Ox 98.3 F 62 20 155/64 H 96 05/15/17 07:49 05/15/17 07:49 05/15/17 07:49 05/15/17 07:49 05/15/17 07:49 Intake and Output: 05/15/17 05/15/17 06:59 18:59 Intake Total 1060 Balance 1060 - Medications Medications: Current Medications Clopidogrel Bisulfate (Plavix) [address] [facility] Last Admin: 05/14/17 11:57 Dose: 75 mg Dextrose (Dextrose 50% Inj) 0 ml IV STAT PRN; Protocol PRN Reason: Hypoglycemia Protocol Dextrose (Glutose 15) 0 gm PO ONCE PRN; Protocol PRN Reason: Hypoglycemia Protocol Glucagon (Glucagen Diagnostic Kit) 0 mg IM STAT PRN; Protocol PRN Reason: Hypoglycemia Protocol Hydralazine HCl (Apresoline) 10 mg IVP Q6H PRN PRN Reason: Systolic Blood Pressure Last Admin: 05/13/17 07:50 Dose: 10 mg Hydralazine HCl (Apresoline) 10 mg PO QID [facility] Last Admin: 05/14/17 22:20 Dose: 10 mg Meropenem 500 mg/ Sodium (Chloride) 100 mls @ 100 mls/hr IVPB Q12H [facility] PRN Reason: Protocol Last Admin: 05/15/17 05:29 Dose: 100 mls/hr Insulin Human Regular (Novolin R) 0 unit SC ACHS [facility] PRN Reason: Protocol Last Admin: 05/15/17 08:06 Dose: Not Given Morphine Sulfate (Morphine) 4 mg IVP Q4 PRN PRN Reason: Pain, moderate (4-7) Last Admin: 05/13/17 07:58 Dose: 4 mg Nebivolol (Bystolic) 2.[address] [facility] Last Admin: 05/14/17 11:57 Dose: 2.5 mg Nifedipine (Procardia Xl) [address] [facility] Last Admin: 05/14/17 11:57 Dose: 120 mg Ondansetron HCl (Zofran Inj) 4 mg IVP Q6H PRN PRN Reason: Nausea/Vomiting Last Admin: 05/13/17 09:27 Dose: 4 mg Pantoprazole Sodium (Protonix Inj) [address] [facility] Last Admin: 05/14/17 11:57 Dose: 40 mg Saccharomyces Boulardii (Florastor) [address] [facility] Last Admin: 05/14/17 18:24 Dose: 250 mg Topiramate (Topamax) [address] [facility] Last Admin: 05/14/17 22:19 Dose: 50 mg - Labs Labs: 05/15/17 07:07 05/15/17 07:07 - Additional Findings Additional findings: - Constitutional Appears: Non-toxic, No Acute Distress - Head Exam Head Exam: ATRAUMATIC, NORMAL INSPECTION - Eye Exam Eye Exam: EOMI Pupil Exam: NORMAL ACCOMODATION - ENT Exam ENT Exam: Mucous Membranes Moist - Neck Exam Neck Exam: Full ROM - Respiratory Exam Respiratory Exam: NORMAL BREATHING PATTERN. absent: Wheezes - Cardiovascular Exam Cardiovascular Exam: Regular Rate, +S1, +S2; absent: Murmur - GI/Abdominal Exam GI & Abdominal Exam: Soft, Tenderness (RUQ), Normal Bowel Sounds - Extremities Exam Extremities Exam: Full ROM, Normal Capillary Refill - Back Exam Back Exam: Full ROM - Neurological Exam Neurological Exam: Alert, Awake, Oriented x3 - Psychiatric Exam Psychiatric exam: Normal Affect, Normal Mood - Skin Skin Exam: Dry, Warm Note: PICC in place Assessment and Plan - Assessment and Plan (Free Text) Assessment: Diastolic CHF 4/3: We spoke at length with her daughter present, regarding her need for Cardiac stress testing prior to any future surgery. She states she has a financial advisor who did a stress test 2 months ago. She will provide these documents to her surgeon. /2: Patient will need stress test prior to any surgical procedures. Echo 05/08: EF normal, diastolic dysfunction moderate, inc LA pressure, pulm HTN (50mmHg); see full report. prior echo (04/17/17): EF 55-60%, mod diastolic dysfxn. Moderate Pulm Htn. Trace pericardial effusion. Procardia XL 120mg PO daily, Bystolic 2.5 mg PO daily. Hypertensive urgency 05/11-05/15: BP controlled, will continue to monitor. Patient is not on Losartan 2/ 2 poor kidney function. If kidney function improves, consider Losartan 25mg PO qD. Markedly elevated at admission; large pain component * Bystolic and nifedipine XL continued (home meds) * Hydralazine 10mg IV Q6H PRN for SBP > 160 CAD Plavix 75mg PO Daily Lipid panel noted from prior admission: Tri, Chol: 186, LDL: 97, HDL: [address] Cj Mixon, PGY2 <Martin Corona - Last Filed: 05/15/17 23:33> Objective - Vital Signs/Intake and Output Vital Signs (last 24 hours): Temp Pulse Resp BP Pulse Ox 98.4 F 60 20 130/69 96 05/15/17 15:28 05/15/17 15:28 05/15/17 15:28 05/15/17 15:28 05/15/17 15:28 - Labs Labs: 05/15/17 07:07 05/15/17 07:07 Assessment and Plan - Assessment and Plan (Free Text) Plan: Patient seen and evaluated Plan of care d/w the executive vice president business development and as documented
[2017-05-15] MEDS: Saccharomyces Boulardi 250 mg Cap PO SCH (11:53)
[2017-05-15] MEDS: NIFEdipine 60 mg ER Tab PO SCH (11:54)
--- NOTE | 2017-05-15 14:17 | CP.PCM.PN ---
<Ana Rodriguez - Last Filed: 05/15/17 14:28> Subjective - Date & Time of Evaluation Date of Evaluation: 05/15/17 Time of Evaluation: 14:15 - Subjective Subjective: Progress note Patient seen and examined at bedside. Patient admits to very little abdominal pain. Patient denies fever, chills, nausea, vomiting, diarrhea. Objective - Vital Signs/Intake and Output Vital Signs (last 24 hours): Temp Pulse Resp BP Pulse Ox 98.3 F 62 20 155/64 H 96 05/15/17 07:49 05/15/17 07:49 05/15/17 07:49 05/15/17 07:49 05/15/17 07:49 Intake and Output: 05/15/17 05/15/17 06:59 18:59 Intake Total 1060 Balance 1060 - Medications Medications: Current Medications Clopidogrel Bisulfate (Plavix) 75 mg PO DAILY [facility] Last Admin: 05/15/17 11:53 Dose: 75 mg Dextrose (Dextrose 50% Inj) 0 ml IV STAT PRN; Protocol PRN Reason: Hypoglycemia Protocol Dextrose (Glutose 15) 0 gm PO ONCE PRN; Protocol PRN Reason: Hypoglycemia Protocol Glucagon (Glucagen Diagnostic Kit) 0 mg IM STAT PRN; Protocol PRN Reason: Hypoglycemia Protocol Hydralazine HCl (Apresoline) 10 mg PO QID [facility] Last Admin: 05/15/17 11:53 Dose: 10 mg Meropenem 500 mg/ Sodium (Chloride) 100 mls @ 100 mls/hr IVPB Q12H [facility] PRN Reason: Protocol Last Admin: 05/15/17 05:29 Dose: 100 mls/hr Insulin Human Regular (Novolin R) 0 unit SC ACHS [facility] PRN Reason: Protocol Last Admin: 05/15/17 11:51 Dose: Not Given Morphine Sulfate (Morphine) 4 mg IVP Q4 PRN PRN Reason: Pain, moderate (4-7) Last Admin: 05/13/17 07:58 Dose: 4 mg Nebivolol (Bystolic) 2.5 mg PO DAILY [facility] Last Admin: 05/15/17 11:54 Dose: 2.5 mg Nifedipine (Procardia Xl) 120 mg PO DAILY [facility] Last Admin: 05/15/17 11:54 Dose: 120 mg Ondansetron HCl (Zofran Inj) 4 mg IVP Q6H PRN PRN Reason: Nausea/Vomiting Last Admin: 05/13/17 09:27 Dose: 4 mg Pantoprazole Sodium (Protonix Ec Tab) 40 mg PO DAILY [facility] Saccharomyces Boulardii (Florastor) 250 mg PO BID [facility] Last Admin: 05/15/17 11:53 Dose: 250 mg Topiramate (Topamax) 50 mg PO BID [facility] Last Admin: 05/15/17 11:54 Dose: 50 mg - Labs Labs: 05/15/17 07:07 05/15/17 07:07 - Additional Findings Additional findings: - Constitutional Appears: Non-toxic, No Acute Distress - Head Exam Head Exam: ATRAUMATIC, NORMAL INSPECTION - Eye Exam Eye Exam: EOMI Pupil Exam: NORMAL ACCOMODATION - ENT Exam ENT Exam: Mucous Membranes Moist - Neck Exam Neck Exam: Full ROM - Respiratory Exam Respiratory Exam: NORMAL BREATHING PATTERN. absent: Wheezes - Cardiovascular Exam Cardiovascular Exam: +S1, +S2 - GI/Abdominal Exam GI & Abdominal Exam: Soft, mild Tenderness to palpation (RUQ), Normal Bowel Sounds. absent: Rigidity, rebound - Extremities Exam Extremities Exam: Full ROM, Normal Capillary Refill right arm midline in place, per nursing, midline doesn't work. - Back Exam Back Exam: Full ROM - Neurological Exam Neurological Exam: Alert, Awake, Oriented x3 - Psychiatric Exam Psychiatric exam: Normal Affect, Normal Mood - Skin Skin Exam: Dry, Warm Assessment and Plan - Assessment and Plan (Free Text) Assessment: 1). Bacteremia Secondary to Klebsiella pneumoniae 05/07/17 Repeat Blood Culture 05/09/17 is negative to date 05/14 additional blood culture drawn, pending results Will need to figure out antibiotic therapy planning once patient is optimized for discharge- Considerations for [facility] infusion center vs. [facility]. Following, patient can continue Invanz 500 mg IV through 05/23/17 Currently on Meropenem 500 mg IV Q12H PICC Line replaced 05/14/17. 05/[address] Owens: patient can take Merrem 500mg IV Q12H for 6 more days preferably given at the rehabilitation center. 05/15 Spoke to daughter of patient who prefers if patient is at home to complete the treatment. 2). UTI Secondary to E. coli 05/06/17 05/09/17 Urine culture shows Gram (+) Cocci Currently on Meropenem 500 mg IV Q12H 3). Hx Cholangiocarcinoma S/P Stent for Obstructive Jaundice/Transaminitis via ERCP 05/07/17 Surgery planning for Pancreaticoduodenectomy at later undetermined date:after bacteremia and UTI resolve. Will need to touch base with surgery team nearer to then for planning. 4). Hx CKD Stage 4 with Acidosis Acidosis has resolved NO HD at this time as per Nephrology Dr. Juárez Monitor 5). Hx DM 2 ISS Diet Management warranted Monitor Accuchecks 6). Hx HTN with Urgency NOT currently under control therefore Hydralazine 10 mg PO 4x/day was added 05/12 Bystolic 2.5 mg PO 1x/day (could not increase this because hear rate in the 60s) Procardia XL 120 mg PO 1x/day (this medication has been maxed out) Hydralazine 10 mg PO Q6H PRN SBP > 160 Prior D5 solution with bicarb may have elevated pressures- This has since been discontinued. 7). Hx Diastolic HF and CAD Bystolic 2.5 mg PO 1x/day Plavix 75 mg PO 1x/day Echocardiogram 04/17/17: EF estimated 55-60%, moderate diastolic dysfunction, moderate pulmonary HTN, trace pericardial effusion 8). Hx Anemia Likely Secondary to CKD 4/2 1uPRBC, 4/3 AM Hgb 9.0 from 7.8 Heme/Onc: Dr. Carter Continue to monitor 9). Proteinuria CKD Stage 4 Dr. Juárez Consulted 10). Thrombocytopenia Likely secondary to bacteremia and UTI Improved, stable Monitor 11). Prophylaxis Morphine 4 mg IV Q4H PRN Moderate Pain Zofran 4 mg IV Q6H PRN N/V Protonix 40 mg IV 1x/day Prescription for Merrem 500 mg IV Q12H, 12 bags for [facility], LT[facility], infusion center pending insurance approval 05/[address] Owens: patient can take Merrem 500mg IV Q12H for 6 more days preferably given at the rehabilitation center. 05/15 Spoke to daughter of patient who prefers if patient is at home to complete the treatment. will update accordingly Ana Rodriguez DO PGY1 Dr. Zapata <Brad Zapata - Last Filed: 05/15/17 15:27> Objective - Vital Signs/Intake and Output Vital Signs (last 24 hours): Temp Pulse Resp BP Pulse Ox 98.3 F 62 20 155/64 H 96 05/15/17 07:49 05/15/17 07:49 05/15/17 07:49 05/15/17 07:49 05/15/17 07:49 Intake and Output: 05/15/17 05/15/17 06:59 18:59 Intake Total 1060 Balance 1060 - Medications Medications: Current Medications Clopidogrel Bisulfate (Plavix) 75 mg PO DAILY [facility] Last Admin: 05/15/17 11:53 Dose: 75 mg Dextrose (Dextrose 50% Inj) 0 ml IV STAT PRN; Protocol PRN Reason: Hypoglycemia Protocol Dextrose (Glutose 15) 0 gm PO ONCE PRN; Protocol PRN Reason: Hypoglycemia Protocol Glucagon (Glucagen Diagnostic Kit) 0 mg IM STAT PRN; Protocol PRN Reason: Hypoglycemia Protocol Hydralazine HCl (Apresoline) 10 mg PO QID [facility] Last Admin: 05/15/17 15:08 Dose: 10 mg Meropenem 500 mg/ Sodium (Chloride) 100 mls @ 100 mls/hr IVPB Q12H [facility] PRN Reason: Protocol Last Admin: 05/15/17 05:29 Dose: 100 mls/hr Insulin Human Regular (Novolin R) 0 unit SC ACHS [facility] PRN Reason: Protocol Last Admin: 05/15/17 11:51 Dose: Not Given Morphine Sulfate (Morphine) 4 mg IVP Q4 PRN PRN Reason: Pain, moderate (4-7) Last Admin: 05/13/17 07:58 Dose: 4 mg Nebivolol (Bystolic) 2.5 mg PO DAILY [facility] Last Admin: 05/15/17 11:54 Dose: 2.5 mg Nifedipine (Procardia Xl) 120 mg PO DAILY [facility] Last Admin: 05/15/17 11:54 Dose: 120 mg Ondansetron HCl (Zofran Inj) 4 mg IVP Q6H PRN PRN Reason: Nausea/Vomiting Last Admin: 05/13/17 09:27 Dose: 4 mg Pantoprazole Sodium (Protonix Ec Tab) 40 mg PO DAILY [facility] Saccharomyces Boulardii (Florastor) 250 mg PO BID [facility] Last Admin: 05/15/17 11:53 Dose: 250 mg Topiramate (Topamax) 50 mg PO BID [facility] Last Admin: 05/15/17 11:54 Dose: 50 mg - Labs Labs: 05/15/17 07:07 04/03/18 07:07 Attending/Attestation - Attestation I have personally seen and examined this patient.: Yes I have fully participated in the care of the patient.: Yes I have reviewed all pertinent clinical information, including history, physical exam and plan: Yes Notes (Text): Medical attending: Patient was seen and examined by me, agree with the above note by the resident medical officer. I saw the patient with the resident medical officer early in the morning. We later returned after more for family members came to the room this recent afternoon. As documented above the resident note the patient will need to continue with the IV meropenem for at least another 6 more days. Per instructions of ID they should be done at a rehabilitation center so that she patient to get reliable infusions of antibiotics. We explained this to the patient's family members and initially they want to take her home but after we discussed with them they agreed to go to rehabilitation. From what I understand trying to get her into [facility]. The patient as well as the patient's family members understand that they'll have to repeat contact surgery for future date of surgery for the cholangiocarcinoma. Initially she is was supposed to have surgery on 05/18/17. However given her infection at this time he still requires IV antibiotics. thank you Brad Zapata
[2017-05-15 15:30] VITALS: BP 130/69; PULSE 60; TEMP 98.4
--- NOTE | 2017-05-15 17:22 | CP.PCM.PN ---
Subjective - Date & Time of Evaluation Date of Evaluation: 05/15/17 Time of Evaluation: 17:20 - Subjective Subjective: HPI: 76 Female with PMHx of invasive cholangiocarcinoma , pancreatic cyst, liver cirrhosis HTN, DM, CKD, RA, OA presents to the ED with abdominal pain. Patient reports pain began suddenly this afternoon while walking to [employer]. She describes pain as a constant, sharp pain located on the right side of her abdomen, rating a 10/10 on the severity scale. Pain associated with N/V today - family reports 8 episodes of non-bloody emesis shortly after onset of pain. Patient denies needing any medications for pain while home. Denied fever, chills , headache, chest pain, SOB, diarrhea, or urinary symptoms. No sick contacts. Pt with recent admission at [facility] from 03/30 - 04/09/17 with diagnoses of invasive cholangiocarcinoma, pancreatic cyst and liver cirrhosis. Family at bedside helpful in elucidating care after recent discharge. Per family, pt had PET scan as outpatient at [place]. Family states pt had surgical date of May [address] Hawley, for which pt had been cleared by cardiology. Family states they have appointments at future dates for Field Care Manager (Dr. Juárez's group), and Hem/Onc Dr. Carter. Hospital Course: Objective - Vital Signs/Intake and Output Vital Signs (last 24 hours): Temp Pulse Resp BP Pulse Ox 98.4 F 60 20 130/69 96 05/15/17 15:28 05/15/17 15:28 05/15/17 15:28 05/15/17 15:28 05/15/17 15:28 Intake and Output: 05/15/17 05/15/17 06:59 18:59 Intake Total 1060 Balance 1060 - Medications Medications: Current Medications Clopidogrel Bisulfate (Plavix) 75 mg PO DAILY [facility] Last Admin: 05/15/17 11:53 Dose: 75 mg Dextrose (Dextrose 50% Inj) 0 ml IV STAT PRN; Protocol PRN Reason: Hypoglycemia Protocol Dextrose (Glutose 15) 0 gm PO ONCE PRN; Protocol PRN Reason: Hypoglycemia Protocol Glucagon (Glucagen Diagnostic Kit) 0 mg IM STAT PRN; Protocol PRN Reason: Hypoglycemia Protocol Hydralazine HCl (Apresoline) 10 mg PO QID [facility] Last Admin: 05/15/17 15:08 Dose: 10 mg Meropenem 500 mg/ Sodium (Chloride) 100 mls @ 100 mls/hr IVPB Q12H [facility] PRN Reason: Protocol Last Admin: 05/15/17 05:29 Dose: 100 mls/hr Insulin Human Regular (Novolin R) 0 unit SC ACHS [facility] PRN Reason: Protocol Last Admin: 05/15/17 11:51 Dose: Not Given Losartan Potassium (Cozaar) 25 mg PO DAILY [facility] Morphine Sulfate (Morphine) 4 mg IVP Q4 PRN PRN Reason: Pain, moderate (4-7) Last Admin: 05/13/17 07:58 Dose: 4 mg Nebivolol (Bystolic) 2.5 mg PO DAILY [facility] Last Admin: 05/15/17 11:54 Dose: 2.5 mg Nifedipine (Procardia Xl) 120 mg PO DAILY [facility] Last Admin: 05/15/17 11:54 Dose: 120 mg Ondansetron HCl (Zofran Inj) 4 mg IVP Q6H PRN PRN Reason: Nausea/Vomiting Last Admin: 05/13/17 09:27 Dose: 4 mg Pantoprazole Sodium (Protonix Ec Tab) 40 mg PO DAILY [facility] Saccharomyces Boulardii (Florastor) 250 mg PO BID [facility] Last Admin: 05/15/17 11:53 Dose: 250 mg Topiramate (Topamax) 50 mg PO BID [facility] Last Admin: 05/15/17 11:54 Dose: 50 mg - Labs Labs: 05/15/17 07:07 05/15/17 07:07
--- NOTE | 2017-05-15 17:30 | CP.PCM.DIS ---
<Ana Rodriguez - Last Filed: 05/15/17 17:30> Provider - Provider Date of Admission: 05/06/17 15:00 Attending physician: Brad Zapata DO Consults: Dr. Evangelista Juárez Time Spent in preparation of Discharge (in minutes): 35 Hospital Course - Lab Results Lab Results: Micro Results 05/14/17 15:20 Blood Blood Culture - Preliminary NO GROWTH AFTER 24 HOURS 05/14/17 13:20 Blood Blood Culture - Preliminary NO GROWTH AFTER 24 HOURS 05/14/17 12:57 Urine,Clean Catch Urine Culture - Final No Growth (<1,000 CFU/ML) 05/09/17 13:50 Blood-Venous Blood Culture - Final NO GROWTH AFTER 5 DAYS 05/09/17 13:50 Blood-Venous Gram Stain - Final TEST NOT PERFORMED 05/07/17 11:24 Blood Blood Culture - Final NO GROWTH AFTER 5 DAYS 05/07/17 11:24 Blood Gram Stain - Final TEST NOT PERFORMED 05/09/17 13:18 Urine,Clean Catch Urine Culture - Final Gram Positive Cocci 05/07/17 13:55 Blood Blood Culture - Final Klebsiella Pneumoniae Ssp Pneu 05/07/17 13:55 Blood Gram Stain - Final 05/06/17 18:00 Urine,Clean Catch Urine Culture - Final Escherichia Coli Most Recent Lab Values WBC 3.5 K/uL (4.8-10.8) L 05/15/17 07:07 RBC 2.87 Mil/uL (3.80-5.20) L 05/15/17 07:07 Hgb 9.0 g/dL (11.0-16.0) L 05/15/17 07:07 Hct 26.1 % (34.0-47.0) L 05/15/17 07:07 MCV 90.7 fL (81.0-99.0) 05/15/17 07:07 MCH 31.2 pg (27.0-31.0) H 05/15/17 07:07 MCHC 34.4 g/dL (33.0-37.0) 05/15/17 07:07 RDW 15.0 % (11.5-14.5) H 05/15/17 07:07 Plt Count 177 K/uL (130-400) 05/15/17 07:07 MPV 8.9 fL (7.2-11.7) 05/15/17 07:07 Neut % (Auto) 51.4 % (50.0-75.0) 05/15/17 07:07 Lymph % (Auto) 36.5 % (20.0-40.0) 05/15/17 07:07 Clarke % (Auto) 6.0 % (0.0-10.0) 05/15/17 07:07 Eos % (Auto) 5.4 % (0.0-4.0) H 05/15/17 07:07 Baso % (Auto) 0.7 % (0.0-2.0) 05/15/17 07:07 Neut # (Auto) 1.8 K/uL (1.8-7.0) 05/15/17 07:07 Lymph # (Auto) 1.3 K/uL (1.0-4.3) 05/15/17 07:07 Clarke # (Auto) 0.2 K/uL (0.0-0.8) 05/15/17 07:07 Eos # (Auto) 0.2 K/uL (0.0-0.7) 05/15/17 07:07 Baso # (Auto) 0.0 K/uL (0.0-0.2) 05/15/17 07:07 Neutrophils % (Manual) 69 % (50-75) 05/08/17 07:08 Band Neutrophils % 19 % (0-2) H* 05/08/17 07:08 Lymphocytes % (Manual) 7 % (20-40) L 05/08/17 07:08 Monocytes % (Manual) 4 % (0-10) 05/08/17 07:08 Eosinophils % (Manual) 1 % (0-4) 05/08/17 07:08 Toxic Granulation Present 05/08/17 07:08 Platelet Estimate Slightly decreased (NORMAL) L 05/08/17 07:08 RBC Morphology Normal 05/07/17 06:17 Hypochromasia (manual) Moderate 05/08/17 07:08 Poikilocytosis (manual Slight 05/08/17 07:08 Anisocytosis (manual) Slight 05/08/17 07:08 Tangent Cells Slight 05/08/17 07:08 Puncture Site Rr 05/06/17 17:53 pCO2 35 mm/Hg (35-45) 05/06/17 17:53 pO2 67 mm/Hg (80-100) L 05/06/17 17:53 HCO3 17.0 mmol/L (21-28) L 05/06/17 17:53 ABG pH 7.27 (7.35-7.45) L 05/06/17 17:53 ABG Total CO2 17.2 mmol/L (22-28) L 05/06/17 17:53 ABG O2 Saturation 97.6 % (95-98) 05/06/17 17:53 ABG Base Excess -9.9 mmol/L (-2.0-3.0) L 05/06/17 17:53 Abel Test Po 05/06/17 17:53 ABG Potassium 3.7 mmol/L (3.6-5.2) 05/06/17 17:53 A-a O2 Difference 39.0 mm/Hg 05/06/17 17:53 Respiratory Index 0.6 05/06/17 17:53 Sodium 139.0 mmol/l (132-148) 05/06/17 17:53 Chloride 113.0 mmol/L (98-107) H 05/06/17 17:53 Glucose 177 mg/dl (65-105) H 05/06/17 17:53 Lactate 1.2 mmol/L (0.7-2.1) 05/06/17 17:53 FiO2 21.0 % 05/06/17 17:53 Sodium 140 mmol/L (132-148) 05/15/17 07:07 Potassium 4.1 mmol/L (3.6-5.2) 05/15/17 07:07 Chloride 114 mmol/L (98-107) H 05/15/17 07:07 Carbon Dioxide 18 mmol/L (22-30) L 05/15/17 07:07 Anion Gap 12 (10-20) 05/15/17 07:07 BUN 17 mg/dL (7-17) 05/15/17 07:07 Creatinine 1.8 mg/dL (0.7-1.2) H 05/15/17 07:07 Est GFR ( Amer) 33 05/15/17 07:07 Est GFR (Non-Af Amer) 27 05/15/17 07:07 POC Glucose (mg/dL) 106 mg/dL (65-110) 05/15/17 16:23 Random Glucose 83 mg/dL (65-105) 05/15/17 07:07 Calcium 8.0 mg/dl (8.6-10.4) L 05/15/17 07:07 Phosphorus 3.6 mg/dL (2.5-4.5) 05/15/17 07:07 Magnesium 2.2 mg/dL (1.6-2.3) 05/15/17 07:07 Total Bilirubin 0.7 mg/dL (0.2-1.3) 05/15/17 07:07 AST 51 U/L (14-36) H 05/15/17 07:07 ALT 24 U/L (9-52) 05/15/17 07:07 Alkaline Phosphatase 363 U/L (38-126) H 05/15/17 07:07 Total Protein 6.5 g/dL (6.3-8.3) 05/15/17 07:07 Albumin 2.5 g/dL (3.5-5.0) L 05/15/17 07:07 Globulin 4.1 gm/dL (2.2-3.9) H 05/15/17 07:07 Albumin/Globulin Ratio 0.6 (1.0-2.1) L 05/15/17 07:07 Lipase 59 U/L (23-300) 05/07/17 06:17 CA 19-9 Antigen 109 U/mL (0-37) H D 05/06/17 16:53 Arterial Blood Potassium 3.7 mmol/L (3.6-5.2) 05/06/17 17:53 Urine Color Romi (YELLOW) 05/10/17 07:30 Urine Clarity Clear (Clear) 05/10/17 07:30 Urine pH 7.0 (5.0-8.0) 05/10/17 07:30 Ur Specific [place] 1.012 (1.003-1.030) 05/10/17 07:30 Urine Protein 3+ mg/dL (NEGATIVE) H 05/10/17 07:30 Urine Glucose (UA) 2+ mg/dL (Normal) H 05/10/17 07:30 Urine Ketones Negative mg/dL (NEGATIVE) 05/10/17 07:30 Urine Blood 1+ (NEGATIVE) H 05/10/17 07:30 Urine Nitrate Negative (NEGATIVE) 05/10/17 07:30 Urine Bilirubin Negative (NEGATIVE) 05/10/17 07:30 Urine Urobilinogen Normal mg/dL (0.2-1.0) 05/10/17 07:30 Ur Leukocyte Esterase 1+ Maile/uL (Negative) H 05/10/17 07:30 Urine WBC (Auto) 15 /hpf (0-5) H 05/10/17 07:30 Urine RBC (Auto) 13 /hpf (0-3) H 05/10/17 07:30 Urine WBC Clumps (Auto) Few /hpf (NONE) H 05/06/17 16:40 Ur Squamous Epith Cells 2 /hpf (0-5) 05/10/17 07:30 Calcium Oxalate Crystal Occ /hpf (<OCC) H 05/07/17 20:51 Urine Bacteria Rare (<OCC) 05/10/17 07:30 Urine Collection Time 24 HRS 05/10/17 10:40 Urine Total Volume 1525 mL 05/10/17 10:40 Ur Protein 24 Hr Calc 47143.0 mg/24hr (42-225) H 05/10/17 10:40 Blood Type O POSITIVE 05/14/17 14:00 Antibody Screen Negative 05/14/17 14:00 - Hospital Course Hospital Course: HPI 76 Female with PMHx of invasive cholangiocarcinoma , pancreatic cyst, liver cirrhosis HTN, DM, CKD, RA, OA presents to the ED with abdominal pain. Patient reports pain began suddenly this afternoon while walking to [place]. She describes pain as a constant, sharp pain located on the right side of her abdomen, rating a 10/10 on the severity scale. Pain associated with N/V today - family reports 8 episodes of non-bloody emesis shortly after onset of pain. Patient denies needing any medications for pain while home. Denied fever, chills , headache, chest pain, SOB, diarrhea, or urinary symptoms. No sick contacts. Pt with recent admission at [facility] from 03/30 - 04/09/17 with diagnoses of invasive cholangiocarcinoma, pancreatic cyst and liver cirrhosis. Family at bedside helpful in elucidating care after recent discharge. Per family, pt had PET scan as outpatient at [facility]. Family states pt had surgical date of May [address] Hawley, for which pt had been cleared by cardiology. Family states they have appointments at future dates for [facility] (Dr. Juárez's group), and Hem/Onc Dr. Carter. Hospital Course Patient was seen by Dr. Naidu and had an ERCP because of increasing lfts, elevated t bili. A stent was placed and it was noted that blood was coming from biliary tree. Patient was given IV antibiotics during the course of her stay. ID consult: Dr. Owens was consulted and placed patient on Merrem. 05/06 Patient's urine was positive for E. coli. 05/07 patient had klebsiella pneumonia positive blood and urine culture came back positive for gram positive cocci. 05/09 and 05/14 blood cultures were negative for growth. Patient's 05/14 urine cultures were negative for growth. Surgery was consulted and maintained no surgery at this time until infection clears. Patient also had worsening kidney function and electrolyte abnormalities for which Dr. Juárez was consulted. The kidney function improved slowly throughoutt hospital course. Dr. Corona also saw the patient during her stay to adjust blood pressure medications and evaluate the patient. Patient was instructed to follow up with Dr. Corona 1 week, after finishing 6 mroe days of IV antibiotics at [facility] , to have a stress test and evaluate prior to pancreaticoduonenectomy with Dr. Hawley. This is a summary of events that occured during hospital stay please see EMR for more information Patient discharged to [facility] to continue current hospital medications and to take Merrem 500mg IV Q12H for 6 more days and to follow up with Dr. Corona 1 week afterwards for cardiac clearance, follow up with Dr. Hawley for rescheduling of the surgery. - Date & Time of H&P Date of H&P: 05/15/17 Time of H&P: 17:30 Discharge Exam - Head Exam Head Exam: NORMAL INSPECTION, NORMOCEPHALIC - Additional Findings Additional findings: - Constitutional Appears: Non-toxic, No Acute Distress - Head Exam Head Exam: ATRAUMATIC, NORMAL INSPECTION - Eye Exam Eye Exam: EOMI Pupil Exam: NORMAL ACCOMODATION - ENT Exam ENT Exam: Mucous Membranes Moist - Neck Exam Neck Exam: Full ROM - Respiratory Exam Respiratory Exam: NORMAL BREATHING PATTERN. absent: Wheezes - Cardiovascular Exam Cardiovascular Exam: +S1, +S2 - GI/Abdominal Exam GI & Abdominal Exam: Soft, mild Tenderness to palpation (RUQ), Normal Bowel Sounds. absent: Rigidity, rebound - Extremities Exam Extremities Exam: Full ROM, Normal Capillary Refill right arm midline in place, per nursing, midline doesn't work. - Back Exam Back Exam: Full ROM - Neurological Exam Neurological Exam: Alert, Awake, Oriented x3 - Psychiatric Exam Psychiatric exam: Normal Affect, Normal Mood - Skin Skin Exam: Dry, Warm Discharge Plan - Follow Up Plan Condition: FAIR Disposition: REHAB FACILITY/REHAB UNIT Instructions: Pancreatic Cancer (DC), Renal Failure Diet (DC) Additional Instructions: Patient stable for transfer to [facility] to complete the remainder of her course of Merrem Q12H for 6 more days 9 (Last dose on 05/21/17) Patient will need stress test prior to any surgical procedures and will follow up with Dr. Corona one week after for stress test. Patient is to follow up with Dr. Hawley after finishing antibiotic treatment for pancreaticoduodenectomy <Brad Zapata - Last Filed: 05/15/17 18:33> Provider - Provider Date of Admission: 05/06/17 15:00 Attending physician: Brad Zapata DO Hospital Course - Lab Results Lab Results: Micro Results 05/14/17 15:20 Blood Blood Culture - Preliminary NO GROWTH AFTER 24 HOURS 05/14/17 13:20 Blood Blood Culture - Preliminary NO GROWTH AFTER 24 HOURS 05/14/17 12:57 Urine,Clean Catch Urine Culture - Final No Growth (<1,000 CFU/ML) 05/09/17 13:50 Blood-Venous Blood Culture - Final NO GROWTH AFTER 5 DAYS 05/09/17 13:50 Blood-Venous Gram Stain - Final TEST NOT PERFORMED 05/07/17 11:24 Blood Blood Culture - Final NO GROWTH AFTER 5 DAYS 05/07/17 11:24 Blood Gram Stain - Final TEST NOT PERFORMED 05/09/17 13:18 Urine,Clean Catch Urine Culture - Final Gram Positive Cocci 05/07/17 13:55 Blood Blood Culture - Final Klebsiella Pneumoniae Ssp Pneu 05/07/17 13:55 Blood Gram Stain - Final 05/06/17 18:00 Urine,Clean Catch Urine Culture - Final Escherichia Coli Most Recent Lab Values WBC 3.5 K/uL (4.8-10.8) L 05/15/17 07:07 RBC 2.87 Mil/uL (3.80-5.20) L 05/15/17 07:07 Hgb 9.0 g/dL (11.0-16.0) L 05/15/17 07:07 Hct 26.1 % (34.0-47.0) L 05/15/17 07:07 MCV 90.7 fL (81.0-99.0) 05/15/17 07:07 MCH 31.2 pg (27.0-31.0) H 05/15/17 07:07 MCHC 34.4 g/dL (33.0-37.0) 05/15/17 07:07 RDW 15.0 % (11.5-14.5) H 05/15/17 07:07 Plt Count 177 K/uL (130-400) 05/15/17 07:07 MPV 8.9 fL (7.2-11.7) 05/15/17 07:07 Neut % (Auto) 51.4 % (50.0-75.0) 05/15/17 07:07 Lymph % (Auto) 36.5 % (20.0-40.0) 05/15/17 07:07 Clarke % (Auto) 6.0 % (0.0-10.0) 05/15/17 07:07 Eos % (Auto) 5.4 % (0.0-4.0) H 05/15/17 07:07 Baso % (Auto) 0.7 % (0.0-2.0) 05/15/17 07:07 Neut # (Auto) 1.8 K/uL (1.8-7.0) 05/15/17 07:07 Lymph # (Auto) 1.3 K/uL (1.0-4.3) 05/15/17 07:07 Clarke # (Auto) 0.2 K/uL (0.0-0.8) 05/15/17 07:07 Eos # (Auto) 0.2 K/uL (0.0-0.7) 05/15/17 07:07 Baso # (Auto) 0.0 K/uL (0.0-0.2) 05/15/17 07:07 Neutrophils % (Manual) 69 % (50-75) 05/08/17 07:08 Band Neutrophils % 19 % (0-2) H* 05/08/17 07:08 Lymphocytes % (Manual) 7 % (20-40) L 05/08/17 07:08 Monocytes % (Manual) 4 % (0-10) 05/08/17 07:08 Eosinophils % (Manual) 1 % (0-4) 05/08/17 07:08 Toxic Granulation Present 05/08/17 07:08 Platelet Estimate Slightly decreased (NORMAL) L 05/08/17 07:08 RBC Morphology Normal 05/07/17 06:17 Hypochromasia (manual) Moderate 05/08/17 07:08 Poikilocytosis (manual Slight 05/08/17 07:08 Anisocytosis (manual) Slight 05/08/17 07:08 Tangent Cells Slight 05/08/17 07:08 Puncture Site Rr 05/06/17 17:53 pCO2 35 mm/Hg (35-45) 05/06/17 17:53 pO2 67 mm/Hg (80-100) L 05/06/17 17:53 HCO3 17.0 mmol/L (21-28) L 05/06/17 17:53 ABG pH 7.27 (7.35-7.45) L 05/06/17 17:53 ABG Total CO2 17.2 mmol/L (22-28) L 05/06/17 17:53 ABG O2 Saturation 97.6 % (95-98) 05/06/17 17:53 ABG Base Excess -9.9 mmol/L (-2.0-3.0) L 05/06/17 17:53 Abel Test Po 05/06/17 17:53 ABG Potassium 3.7 mmol/L (3.6-5.2) 05/06/17 17:53 A-a O2 Difference 39.0 mm/Hg 05/06/17 17:53 Respiratory Index 0.6 05/06/17 17:53 Sodium 139.0 mmol/l (132-148) 05/06/17 17:53 Chloride 113.0 mmol/L (98-107) H 05/06/17 17:53 Glucose 177 mg/dl (65-105) H 05/06/17 17:53 Lactate 1.2 mmol/L (0.7-2.1) 05/06/17 17:53 FiO2 21.0 % 05/06/17 17:53 Sodium 140 mmol/L (132-148) 05/15/17 07:07 Potassium 4.1 mmol/L (3.6-5.2) 05/15/17 07:07 Chloride 114 mmol/L (98-107) H 05/15/17 07:07 Carbon Dioxide 18 mmol/L (22-30) L 05/15/17 07:07 Anion Gap 12 (10-20) 05/15/17 07:07 BUN 17 mg/dL (7-17) 05/15/17 07:07 Creatinine 1.8 mg/dL (0.7-1.2) H 05/15/17 07:07 Est GFR ( Amer) 33 05/15/17 07:07 Est GFR (Non-Af Amer) 27 05/15/17 07:07 POC Glucose (mg/dL) 106 mg/dL (65-110) 05/15/17 16:23 Random Glucose 83 mg/dL (65-105) 05/15/17 07:07 Calcium 8.0 mg/dl (8.6-10.4) L 05/15/17 07:07 Phosphorus 3.6 mg/dL (2.5-4.5) 05/15/17 07:07 Magnesium 2.2 mg/dL (1.6-2.3) 05/15/17 07:07 Total Bilirubin 0.7 mg/dL (0.2-1.3) 05/15/17 07:07 AST 51 U/L (14-36) H 05/15/17 07:07 ALT 24 U/L (9-52) 05/15/17 07:07 Alkaline Phosphatase 363 U/L (38-126) H 05/15/17 07:07 Total Protein 6.5 g/dL (6.3-8.3) 05/15/17 07:07 Albumin 2.5 g/dL (3.5-5.0) L 05/15/17 07:07 Globulin 4.1 gm/dL (2.2-3.9) H 05/15/17 07:07 Albumin/Globulin Ratio 0.6 (1.0-2.1) L 05/15/17 07:07 Lipase 59 U/L (23-300) 05/07/17 06:17 CA 19-9 Antigen 109 U/mL (0-37) H D 05/06/17 16:53 Arterial Blood Potassium 3.7 mmol/L (3.6-5.2) 05/06/17 17:53 Urine Color Romi (YELLOW) 05/10/17 07:30 Urine Clarity Clear (Clear) 05/10/17 07:30 Urine pH 7.0 (5.0-8.0) 05/10/17 07:30 Ur Specific [place] 1.012 (1.003-1.030) 05/10/17 07:30 Urine Protein 3+ mg/dL (NEGATIVE) H 05/10/17 07:30 Urine Glucose (UA) 2+ mg/dL (Normal) H 05/10/17 07:30 Urine Ketones Negative mg/dL (NEGATIVE) 05/10/17 07:30 Urine Blood 1+ (NEGATIVE) H 05/10/17 07:30 Urine Nitrate Negative (NEGATIVE) 05/10/17 07:30 Urine Bilirubin Negative (NEGATIVE) 05/10/17 07:30 Urine Urobilinogen Normal mg/dL (0.2-1.0) 05/10/17 07:30 Ur Leukocyte Esterase 1+ Maile/uL (Negative) H 05/10/17 07:30 Urine WBC (Auto) 15 /hpf (0-5) H 05/10/17 07:30 Urine RBC (Auto) 13 /hpf (0-3) H 05/10/17 07:30 Urine WBC Clumps (Auto) Few /hpf (NONE) H 05/06/17 16:40 Ur Squamous Epith Cells 2 /hpf (0-5) 05/10/17 07:30 Calcium Oxalate Crystal Occ /hpf (<OCC) H 05/07/17 20:51 Urine Bacteria Rare (<OCC) 05/10/17 07:30 Urine Collection Time 24 HRS 05/10/17 10:40 Urine Total Volume 1525 mL 05/10/17 10:40 Ur Protein 24 Hr Calc 15055.0 mg/24hr (42-225) H 05/10/17 10:40 Blood Type O POSITIVE 05/14/17 14:00 Antibody Screen Negative 05/14/17 14:00 Attending/Attestation - Attestation I have personally seen and examined this patient.: Yes I have fully participated in the care of the patient.: Yes I have reviewed all pertinent clinical information, including history, physical exam and plan: Yes Notes (Text): 05/15/17 18:31 Medical attending: Patient was seen and examined by me, agree with the above note by the medical records administrator. We saw the patient in the morning and later returned after more for family members came to the room this recent afternoon. As mentioned previous as well as documented above the resident note the patient will need to continue with the IV meropenem for at least another 6 more days. She just had change of the PICC line. Per instructions of ID they should be done at a rehabilitation center so that she patient to get reliable infusions of antibiotics. We explained this to the patient's family members and initially they want to take her home but after we discussed with them they agreed to go to rehabilitation. It has been arranged for her to go to [facility] The patient as well as the patient's family members understand that they'll have to repeat contact surgery for future date of surgery for the cholangiocarcinoma. Also she will need to be evaluated by her pre press operator before the procedure is done, enrique will need a stress test. Initially she is was supposed to have surgery on 05/18/17. However given her infection at this time he still requires IV antibiotics and the surgery will have to be resceduled. thank you Brad Zapata
--- NOTE | 2017-05-15 18:36 | CP.PCM.PN ---
Subjective - Date & Time of Evaluation Date of Evaluation: 05/15/17 Time of Evaluation: 14:00 - Subjective Subjective: No complaints. Objective - Vital Signs/Intake and Output Vital Signs (last 24 hours): Temp Pulse Resp BP Pulse Ox 98.4 F 60 20 130/69 96 05/15/17 15:28 05/15/17 15:28 05/15/17 15:28 05/15/17 15:28 05/15/17 15:28 Intake and Output: 05/15/17 05/15/17 06:59 18:59 Intake Total 1060 Balance 1060 - Labs Labs: 05/15/17 07:07 05/15/17 07:07 - Head Exam Head Exam: ATRAUMATIC - Eye Exam Eye Exam: Normal appearance - ENT Exam ENT Exam: Mucous Membranes Dry - Respiratory Exam Respiratory Exam: NORMAL BREATHING PATTERN - Cardiovascular Exam Cardiovascular Exam: +S1, +S2 - GI/Abdominal Exam GI & Abdominal Exam: Normal Bowel Sounds Assessment and Plan (1) Anemia Assessment & Plan: chronic disease PRBC transfusion Status: Acute (2) Cholangiocarcinoma Assessment & Plan: outpatient surgery Status: Acute
[2017-05-16] MEDS ORDERED: Pantoprazole 40 mg EC Tab PO SCH (10:00)
== END 2017-05-15 17:30 | DRG 871 ==
LOC: C.ER 13:53 → C.9E 15:00 → C.5S 16:15 → C.3T 05-09 22:09
PROVIDERS: ADMIT Hospitalist; ATTEND Hospitalist
PROC: 0FPB8DZ Removal of Intraluminal Device from Hepatobiliary Duct, Via Natural or Artificial Opening Endoscopic (ICD-10-PCS; 2017-05-07)
PROC: 0F798DZ Dilation of Common Bile Duct with Intraluminal Device, Via Natural or Artificial Opening Endoscopic (ICD-10-PCS; principal; 2017-05-07 10:16)
PROC: 02HV33Z Insertion of Infusion Device into Superior Vena Cava, Percutaneous Approach (ICD-10-PCS; 2017-05-14)
PROC: 30233N1 Transfusion of Nonautologous Red Blood Cells into Peripheral Vein, Percutaneous Approach (ICD-10-PCS; 2017-05-14)
DX: A41.89 Other specified sepsis (principal); K83.1 Obstruction of bile duct; J15.0 Pneumonia due to Klebsiella pneumoniae; K83.0 Cholangitis; C24.0 Malignant neoplasm of extrahepatic bile duct; C78.89 Secondary malignant neoplasm of other digestive organs; I13.0 Hypertensive heart and chronic kidney disease with heart failure and stage 1 through stage 4 chronic kidney disease, or unspecified chronic kidney disease; I50.30 Unspecified diastolic (congestive) heart failure; E87.2 Acidosis; N18.4 Chronic kidney disease, stage 4 (severe); N17.9 Acute kidney failure, unspecified; N39.0 Urinary tract infection, site not specified; R18.8 Other ascites; R65.20 Severe sepsis without septic shock; B96.20 Unspecified Escherichia coli [E. coli] as the cause of diseases classified elsewhere; D63.1 Anemia in chronic kidney disease; D69.59 Other secondary thrombocytopenia; E11.22 Type 2 diabetes mellitus with diabetic chronic kidney disease; E78.00 Pure hypercholesterolemia, unspecified; I16.0 Hypertensive urgency; I27.20 Pulmonary hypertension, unspecified; I25.10 Atherosclerotic heart disease of native coronary artery without angina pectoris; K74.60 Unspecified cirrhosis of liver; M81.0 Age-related osteoporosis without current pathological fracture; Z95.5 Presence of coronary angioplasty implant and graft; M06.9 Rheumatoid arthritis, unspecified; T85.898A Other specified complication of other internal prosthetic devices, implants and grafts, initial encounter; Y83.8 Other surgical procedures as the cause of abnormal reaction of the patient, or of later complication, without mention of misadventure at the time of the procedure; Z79.4 Long term (current) use of insulin